=== PATIENT | male | born 1950 | race Caucasian/White ===

== ENCOUNTER → 2016-05-03 | Outpatient (CLI) | payer OTHER, MEDICARE ==
[~2016-05-03] MED LIST: ANT25 PO; ASPI1CHW12 PO; ASPI325T45 PO; ATEN50TA8 PO; ATOR-24 PO; BACL20TA PO; BUSP15TA70 PO; BUSP1TAB46 PO; CITA20TA4 PO; CITA40TA4 PO; CLON0.5T3 PO; CLOP1TAB15 PO; CYM/30 PO; DIGO0.2518 PO; FLUO20CA35 PO; FRS/40 PO; GLCSR500 PO; GLIM2TAB2 PO; GLIM4TAB PO; LNX25 PO; LORA-741 PO; LOSA100T65 PO; LOSA50TA6 PO; MECL25TA2 PO; METF500T PO; METO1TAB69 PO; POTA-65 PO; SITA50TA PO; WARF-246 PO
--- NOTE | 2016-05-03 14:46 | MYOCARDIAL PERFUSION SCAN ---
ONE-DAY NUCLEAR MEDICINE TECHNETIUM-99M CARDIOLITE MYOCARDIAL PERFUSION SCAN CLINICAL HISTORY: The patient has known coronary artery disease and suffered a prior large anterior and apical myocardial infarction. He has known left ventricular dysfunction. He has recently experienced significant exertional dyspnea. COMPARISON: None. TECHNIQUE: For the stress portion of the study, 33.0 mCi of Technetium-99m Cardiolite IV was injected at 9:21 a.m. on 05/03/2016. Fifteen minutes following the injection, imaging of the heart was performed in multiple projection. For the rest portion of the study, 1122 mCi of Technetium-99m Cardiolite was injected IV at 7:30 a.m. One hour following the injection, imaging of the heart was performed in the same projections. EXERCISE TREADMILL TESTING: The patient exercised for 3 minutes and 5 seconds on a standard Bjorn protocol attaining 4.7 METS and a peak heart rate of 153 beats per minute (98% predicted maximum). The test was terminated due to dyspnea. The patient did not experience chest discomfort. Initial blood pressure 120/75 and this increased to 140/75 at peak exertion. Baseline EKG notes atrial fibrillation with an old anteroseptal myocardial infarction pattern. There are no ST segment changes seen with exercise. There are no dysrhythmias. FINDINGS: The short axis, vertical long axis, and horizontal long axis images were reviewed in detail. There is a large fixed defect involving the mid and distal anterior wall, and the entire apex. This is consistent with a prior myocardial infarction. There is no significant ramu-infarction ischemia or other myocardial ischemic segments. The left ventricle is dilated and hypokinetic, with a large area of akinesis in the area described above. Ejection fraction is 25%. IMPRESSION: 1. Scintigraphic evidence of a large, old, anteroapical myocardial infarction. 2. No evidence of stress induced myocardial ischemia. 3. Dilated and hypokinetic left ventricle with a large area of akinesis involving the anterior and apical mendez. Ejection fraction is 25%. MTDD
== END | disposition home or self-care (01) ==
LOC: C.NUCL 06:44
PROVIDERS: ATTEND Internal Medicine Cardiovascular Disease
DX: I25.10 Atherosclerotic heart disease of native coronary artery without angina pectoris (principal); R06.09 Other forms of dyspnea

== ENCOUNTER 2016-05-31 15:46 | Observation (INO) | payer OTHER, MEDICARE ==
[~2016-05-31] VITALS: Ht 172.7 cm; Wt 109.0 kg
[~2016-05-31 15:46] MED LIST changes: -ANT25 PO; -ASPI1CHW12 PO; -ATOR-24 PO; -BACL20TA PO; -BUSP15TA70 PO; -BUSP1TAB46 PO; -CITA40TA4 PO; -CLON0.5T3 PO; -CYM/30 PO; -FLUO20CA35 PO; -FRS/40 PO; -GLCSR500 PO; -GLIM2TAB2 PO; -GLIM4TAB PO; -LNX25 PO; -LOSA50TA6 PO; -METO1TAB69 PO; -POTA-65 PO; -SITA50TA PO; -WARF-246 PO
[2016-05-31] MEDS ORDERED: NITROGLYCERIN 0.4 MG SL PER TAB CHARGE SL PRN ×2 (16:00→17:30)
[2016-05-31] MEDS ORDERED: ASPIRIN 324 MG CHEW PO STA (16:00)
--- NOTE | 2016-05-31 16:08 | EMERGENCY ROOM VISIT NOTE ---
History Report prepared by David: Belinda Best Under the Supervision of: Dr. Vernon Garnica M.D. First contact with patient: 15:55 Chief Complaint: CARDIAC ASSESSMENT Stated Complaint: HEART A-FIB History of Present Illness The patient is a 65 year old male who presents to the Emergency Room with complaints of persistent left sided chest pain that began this afternoon. It radiates under his left armpit. He describes it as a pressure. He also complains of a racing heart rate and shortness of breath which are now resolved. He took .5 Ativan without any relief. He did not take Nitro. The patient has a history of chronic a-fib and heart disease. He has had heart attacks in the past but states that his current symptoms do not feel similar to previous heart attacks. He has a history of 5 stents. He uses C-pap at night. The patient was recently put on Digoxin and took his first dose today. His leg swelling is baseline at this time. He is on Coumadin and aspirin. Denies abdominal pain or other complaints. Source of History: patient Onset: this afternoon Position: chest (left) Quality: pressure Timing: other (persistent) Associated Symptoms: + SOB Note: Other symptoms: racing heart rate Review of Systems See HPI for pertinent positives & negatives. A total of 10 systems reviewed and were otherwise negative. Past Medical & Surgical Medical Problems: (1) Benign hypertension (2) Diabetes mellitus (3) Heart disease (4) OR (myocardial infarction) (5) Neuropathy (6) Partial resection of colon (7) Placement of stent (8) Varicose vein of leg Family History Diabetes mellitus FH: cancer FH: heart disease Hypertension Social History Smoking Status: Never Smoker Alcohol Use: none Drug Use: none Marital Status: Housing Status: lives with significant other Occupation Status: employed, other Current/Historical Medications Scheduled Aspirin (Aspirin), 325 MG PO DAILY Atenolol (Tenormin), 50 MG PO BID Atorvastatin (Lipitor), 40 MG PO DAILY Citalopram Hydrobromide (Citalopram Hydrobromide), 20 MG PO DAILY Clopidogrel (Plavix), 75 MG PO DAILY Digoxin (Lanoxin), 0.25 MG PO DAILY Glimepiride (Glimepiride), 1 MG PO DAILY Losartan Potassium (Cozaar), 100 MG PO DAILY Metformin Hcl (Glucophage), 500 MG PO DAILY Warfarin Sodium (Warfarin Sodium), 5 MG PO 2XWK Warfarin Sodium (Warfarin Sodium), 2.5 MG PO 5XWK Scheduled PRN Lorazepam (Ativan), 0.5-1 MG PO TID PRN for Panic Meclizine Hcl (Antivert), 25 MG PO TID PRN for DIZZINESS Allergies Coded Allergies: Penicillins (Verified Allergy, Unknown, 12/19/10) Codeine (Verified Adverse Reaction, Unknown, NAUSEA, LIGHTHEADEDNESS, 12/19) Physical Exam Vital Signs Date Time Temp Pulse Resp B/P Pulse Ox O2 Delivery O2 Flow Rate FiO2 05/31/16 16:31 77 20 128/66 94 Room Air 05/31/16 16:14 81 05/31/16 15:59 94 Room Air 05/31/16 15:59 95 Room Air 05/31/16 15:58 88 24 160/85 95 Room Air 05/31/16 15:49 36.6 92 24 149/83 94 Room Air Physical Exam GENERAL: Patient is well appearing, mildly anxious appearing, and in minimal distress. HEENT: No acute trauma, normocephalic atraumatic, mucous membranes moist, no nasal congestion, no scleral icterus. NECK: No stridor, no adenopathy, no meningismus, trachea is midline. LUNGS: No dyspnea. Clear to auscultation and equal bilaterally. No wheeze, no rhonchi. HEART: Irregular rate and regular rhythm. No murmurs, rubs, gallops appreciated. ABDOMEN: Soft, nontender, bowel sounds positive, no masses appreciated, no peritonitis, large ventral abdominal scar which is well-healed, some abdominal redness (states chronic). BACK: No midline tenderness, no CVA tenderness EXTREMITIES: Normal motion all extremities, no cyanosis. Bilateral lower extremity edema and peripheral vascular disease (states chronic). NEUROLOGIC: Alert and oriented, no acute motor or sensory deficits, no focal weakness, cranial nerves grossly intact. SKIN: No rash, no jaundice, no diaphoresis. Medical Decision & Procedures ER Provider Diagnostic Interpretation: Radiology results and stated below per my review and radiologist interpretation: CHEST ONE VIEW PORTABLE CLINICAL HISTORY: Chest pain. Atrial fibrillation. COMPARISON STUDY: Chest radiograph July 11, 2013. FINDINGS: No pneumothorax or pleural effusion is present. No lobar consolidation is present. Marked cardiomegaly is similar to prior exam. There is no evidence of pulmonary edema. IMPRESSION: Stable marked cardiomegaly. No radiographic evidence of pulmonary edema. Electronically signed by: Jefferson Hyatt M.D. 05/31/2016 4:24 PM Dictated Date/Time: 05/31/2016 4:12 PM Laboratory Results 05/31/16 16:00 Red Blood Count 4.64, Mean Corpuscular Volume 93.1, Mean Corpuscular Hemoglobin 31.0, Mean Corpuscular Hemoglobin Concent 33.3, Mean Platelet Volume 9.4, Neutrophils (%) (Auto) 69.3, Lymphocytes (%) (Auto) 16.4, Monocytes (%) (Auto) 12.5, Eosinophils (%) (Auto) 1.4, Basophils (%) (Auto) 0.2, Neutrophils # (Auto ) 3.90, Lymphocytes # (Auto) 0.92, Monocytes # (Auto) 0.70, Eosinophils # (Auto ) 0.08, Basophils # (Auto) 0.01 05/31/16 16:00 Test 05/31/16 16:00 White Blood Count 5.62 K/uL (4.8-10.8) Red Blood Count 4.64 M/uL (4.7-6.1) Hemoglobin 14.4 g/dL (14.0-18.0) Hematocrit 43.2 % (42-52) Mean Corpuscular Volume 93.1 fL (80-100) Mean Corpuscular Hemoglobin 31.0 pg (25-34) Mean Corpuscular Hemoglobin Concent 33.3 g/dl (32-36) Platelet Count 151 K/uL (130-400) Mean Platelet Volume 9.4 fL (7.4-10.4) Neutrophils (%) (Auto) 69.3 % Lymphocytes (%) (Auto) 16.4 % Monocytes (%) (Auto) 12.5 % Eosinophils (%) (Auto) 1.4 % Basophils (%) (Auto) 0.2 % Neutrophils # (Auto) 3.90 K/uL (1.4-6.5) Lymphocytes # (Auto) 0.92 K/uL (1.2-3.4) Monocytes # (Auto) 0.70 K/uL (0.11-0.59) Eosinophils # (Auto) 0.08 K/uL (0-0.5) Basophils # (Auto) 0.01 K/uL (0-0.2) RDW Standard Deviation 48.2 fL (36.4-46.3) RDW Coefficient of Variation 14.1 % (11.5-14.5) Immature Granulocyte % (Auto) 0.2 % Immature Granulocyte # (Auto) 0.01 K/uL (0.00-0.02) Prothrombin Time 31.4 SECONDS (9.0-12.0) Prothromb Time International Ratio 2.8 (0.9-1.1) Activated Partial Thromboplast Time 32.4 SECONDS (21.0-31.0) Partial Thromboplastin Ratio 1.2 Anion Gap 9.0 mmol/L (3-11) Est Creatinine Clear Calc Drug Dose 88.2 ml/min Estimated GFR () 91.1 Estimated GFR (Non- 78.6 BUN/Creatinine Ratio 16.0 (10-20) Calcium Level 8.5 mg/dl (8.5-10.1) Magnesium Level 1.7 mg/dl (1.8-2.4) Total Creatine Kinase 87 U/L (39-308) Creatine Kinase MB 1.0 ng/ml (0.5-3.6) Creatine Kinase MB Ratio 1.1 (0-3.0) Troponin I 0.018 ng/ml (0-0.045) Pro-B-Type Natriuretic Peptide 1692 pg/ml (0-900) Laboratory results as reviewed by me. Medications Administered Medications (Trade) Dose Ordered Sig/Jazmyne Route Start Time Stop Time Status Last Admin Dose Admin Nitroglycerin (Nitrostat Tab) 0.4 mg Q5M PRN SL 05/31/16 16:00 06/30/16 15:59 05/31/16 16:14 0.4 MG Aspirin (Aspirin Chew) 324 mg NOW STAT PO 05/31/16 16:00 05/31/16 16:01 DC 05/31/16 16:14 324 MG ECG Indication: chest pain Rate (beats per minute): 88 Rhythm: normal sinus Findings: PVC, no acute ischemic change Comparison ECG Date: 07/12/13 Change: no significant change ED Course 1555: The patient was evaluated in room B12. A complete history and physical exam was performed. 1600: Ordered Aspirin 324 mg PO, Nitroglycerin 0.4 mg SL. 1635: I reassessed the patient. He has no further chest pain after receiving Nitro. Discussed results and treatment plan with the patient. He verbalized understanding and agreement with the treatment plan. The patient will be evaluated for further management. 1645: I discussed the case with DOM [facility]. The patient will be evaluated for further management. Medical Decision Differential: Cardiac Ischemia (STEMI, NSTEMI, Unstable Angina, etc), Aortic Dissection, Arrhythmia, Pulmonary Embolism, Pneumonia, Pneumothorax, MSK, Infectious, Pericarditis/Myocarditis, Esophageal Rupture, Gastrointestinal, amongst other pathologies entertained. 65 yr old male with long cardiac history and multiple stents who arrives with left chest pressure radiating to left arm. No STEMI on EKG. Resolved with SLNTG. INR therapeutic. Took ASA earlier. CXR without acute findings. No further pain nor symptoms. Vitals normal post SLNTG. Initial trop wnl. Given high risk patient will need full cardiac rule out. Stable at time of consult with hospitalist. Consults Time Called: 1636 Consulting Physician: [facility] Returned Call: 1645 I discussed the case with her. The patient will be evaluated for further management. Impression Primary Impression: Left sided chest pain Scribe Attestation The scribe's documentation has been prepared under my direction and personally reviewed by me in its entirety. I confirm that the note above accurately reflects all work, treatment, procedures, and medical decision making performed by me. Departure Information Dispostion Being Evaluated By Hospitalist Referrals Delmer Gracia M.D. (PCP) Patient Instructions My [facility]
[2016-05-31 16:10] LABS: BASO % 0.2 %; BASO ABS # 0.01 K/uL (0-0.2); COMPLETE YES; EOS % 1.4 %; HEMATOCRIT 43.2 % (42-52); IG% 0.2 %; LYMPH % 16.4 %; LYMPH ABS # 0.92 K/uL (1.2-3.4); MEAN CELL VOLUME 93.1 fL (80-100); MEAN CORPUSCULAR HGB CONC 33.3 g/dl (32-36); MEAN PLATELET VOLUME 9.4 fL (7.4-10.4); MONO % 12.5 %; NEUT % 69.3 %; PLATELET COUNT 151 K/uL (130-400); RED BLOOD COUNT 4.64 M/uL (4.7-6.1); WHITE BLOOD COUNT 5.62 K/uL (4.8-10.8)
[2016-05-31 16:20] LABS: INR 2.8 (0.9-1.1); PARTIAL THROMBOPLASTIN RATIO 1.2; PROTHROMBIN TIME (PATIENT) 31.4 SECONDS (9.0-12.0)
--- NOTE | 2016-05-31 16:25 | DIAGNOSTIC IMAGING REPORT ---
CHEST ONE VIEW PORTABLE CLINICAL HISTORY: Chest pain. Atrial fibrillation. COMPARISON STUDY: Chest radiograph July 11, 2013. FINDINGS: No pneumothorax or pleural effusion is present. No lobar consolidation is present. Marked cardiomegaly is similar to prior exam. There is no evidence of pulmonary edema. IMPRESSION: Stable marked cardiomegaly. No radiographic evidence of pulmonary edema. Electronically signed by: Jefferson Hyatt M.D. 05/31/2016 4:24 PM Dictated Date/Time: 05/31/2016 4:12 PM
[2016-05-31 16:27] LABS: CALCIUM 8.5 mg/dl (8.5-10.1); MAGNESIUM 1.7 mg/dl (1.8-2.4); POTASSIUM 3.5 mmol/L (3.5-5.1)
[2016-05-31 16:32] LABS: CKMB/CK RATIO 1.1 (0-3.0)
[2016-05-31] MEDS ORDERED: ANT25 PO (16:59)
[2016-05-31] MEDS ORDERED: ONDANSETRON INJ 2 MG/ML 2 ML VIAL IV PRN (17:30)
[2016-05-31] MEDS ORDERED: ACETAMINOPHEN 325 MG TAB PO PRN (17:30)
[2016-05-31] MEDS ORDERED: SITA50TA PO (17:32)
[2016-05-31] MEDS ORDERED: GLUCOSE 10 TABS/TUBE PO PRN (17:45)
[2016-05-31] MEDS ORDERED: DEXTROSE 50% 50 ML SYR IV PRN (17:45)
[2016-05-31] MEDS ORDERED: GLUCOSE 40% GEL 15 GM TUBE PO PRN (17:45)
[2016-05-31] MEDS ORDERED: GLUCAGON FOR INJ 1 MG VIAL SQ PRN (17:45)
--- NOTE | 2016-05-31 18:22 | History and Physical ---
History & Physical Date & Time of Service: May 31, 2016 at 17:48 Chief Complaint: Heart A-Fib Primary Care Physician: Delmer Gracia M.D. History of Present Illness Source: patient This is a 65 y/o male with PMHx of Chronic afib on coumadin, Systolic CHF on lasix, well-controlled DM 2, CAD s/p stents x 4, HTN, Dyslipidemia and other problems as outlined below who presents to the ED c/o L sided chest pain that began this afternoon. Pt reports that this afternoon around 1500 he was sitting on the couch when he developed acute onset chest pain that he describes as 3/10 "fluttering" discomfort in his L armpit. The discomfort radiated to his upper back but not into his arms or jaw. Sxs were assoc with palpitations/racing heart rate and SOB. Pt took a 0.5mg Ativan at home but did not take a nitro. Pt has a history of chronic afib and states that these sxs were reflective of his afib when his heart rate is too fast. He has a history of CAD with 4 stents placed in 1997. These sxs are not the same as the sxs he had with his DC. Pt mentions he has had more SOB over the past month and has been seen by his radar scientist (Dr. Vargas). Last month he had a stress test which was negative however he was told there is a "small amount of fluid around the heart". His radar scientist started digoxin and patient took his first dose this morning. Pt denies fever/chills, diaphoresis, wheezing, abd pain, N/V, bowel or bladder issues, LE edema ,calf pain, lightheadedness/dizziness. In the ED, vitals are stable. Trop negative and EKG rate controlled afib with no acute ischemic changes. CXR is negative. Pt received a nitro upon arrival to the ED which relieved his pain. He is currently symptom free and feeling back to his baseline. He will be admitted for further evaluation and treatment. Past Medical/Surgical History Medical Problems: (1) Atrial fibrillation, chronic Status: Chronic (2) CAD (coronary artery disease) Status: Chronic (3) Diabetes mellitus type II, controlled Status: Chronic (4) Dyslipidemia Status: Chronic (5) HTN (hypertension) Status: Chronic (6) ANTOINETTE on CPAP Status: Chronic (7) Systolic CHF Status: Chronic Surgical Problems: (1) History of partial colectomy Permanent Comment: [facility]/ ilieorectal anast/ multiple polyps 2008 Status: Resolved (2) Stented coronary artery Permanent Comment: stents x 4 to RCA and LAD 1997 Status: Resolved Family History Diabetes mellitus FH: cancer FH: heart disease Hypertension Social History Smoking Status: Never Smoker Alcohol Use: none Drug Use: none Marital Status: Housing status: lives with family Occupational Status: employed, other Immunizations History of Influenza Vaccine: N/A History of Tetanus Vaccine?: Yes Tetanus Immunization Date: Mar 31, 2012 History of Pneumococcal: Yes History of Hepatitis B Vaccine: No Multi-Drug Resistant Organisms History of MDRO: No Allergies Coded Allergies: Penicillins (Verified Allergy, Unknown, 05/31/16) Codeine (Verified Adverse Reaction, Unknown, NAUSEA, LIGHTHEADEDNESS, 05/31) Home Medications Scheduled Aspirin (Aspirin 81 Low Dose), 81 MG PO QAM Atorvastatin (Lipitor), 40 MG PO QPM Citalopram Hydrobromide (Citalopram Hydrobromide), 20 MG PO QAM Digoxin (Digoxin), 0.25 MG PO QAM Furosemide (Lasix), 40 MG PO BID Glimepiride (Glimepiride), 2 MG PO QAM Glimepiride (Amaryl), 4 MG PO QAM Losartan Potassium (Cozaar), 100 MG PO QAM Metformin HCl (Metformin HCl ER), 500 MG PO BID Metoprolol Succ (Toprol Xl) (Toprol-Xl ), 100 MG PO QAM Potassium Chloride (Potassium Chloride ER), 10 MEQ PO QAM Sitagliptin Phosphate (Januvia), 50 MG PO DAILY Warfarin Sodium (Warfarin Sodium), 5 MG PO MWF Warfarin Sodium (Warfarin Sodium), 2.5 MG PO 4XWK Scheduled PRN Lorazepam (Ativan), 0.5-1 MG PO TID PRN for Panic Review of Systems Constitutional: No chills, No fatigue, No fever, No sweats, No weakness Eyes: No worsening of vision ENT: No hearing loss Respiratory: + shortness of breath, No cough Cardiovascular: + chest pain (L sided), No claudication, No edema Abdomen: No constipation, No diarrhea, No nausea, No pain, No vomiting Musculoskeletal: No calf pain, No joint pain, No swelling Genitourinary - Male: No dysuria Neurologic: No weakness Psychiatric: No depression symptoms Endocrine: No fatigue Hematologic / Lymphatic: No abnormal bleeding/bruising Integumentary: No new/changing skin lesions Physical Exam Vital Signs Date Time Temp Pulse Resp B/P Pulse Ox O2 Delivery O2 Flow Rate FiO2 05/31/16 16:31 77 20 128/66 94 Room Air 05/31/16 16:14 81 05/31/16 15:59 94 Room Air 05/31/16 15:59 95 Room Air 05/31/16 15:58 88 24 160/85 95 Room Air 05/31/16 15:49 36.6 92 24 149/83 94 Room Air General Appearance: WD/WN, no apparent distress, + pertinent finding (Pt is sitting up in bed with at bedside ) Head: normocephalic, atraumatic Eyes: normal inspection ENT: hearing grossly normal Neck: supple Respiratory/Chest: chest non-tender, lungs clear, normal breath sounds, no respiratory distress Cardiovascular: regular rate, rhythm, no edema Abdomen/GI: normal bowel sounds, non tender, soft, + pertinent finding (20 cm vertical well-healed surgical scar noted) Back: normal inspection Extremities/Musculoskelatal: + swelling (2+ pitting edema bilat), + pertinent finding (venous stasis skin changes) Neurologic/Psych: alert, normal mood/affect, oriented x 3 Skin: normal color, warm/dry Diagnostics Laboratory Results Results Past 24 Hours Test 05/31/16 16:00 Range/Units White Blood Count 5.62 4.8-10.8 K/uL Red Blood Count 4.64 4.7-6.1 M/uL Hemoglobin 14.4 14.0-18.0 g/dL Hematocrit 43.2 42-52 % Mean Corpuscular Volume 93.1 80-100 fL Mean Corpuscular Hemoglobin 31.0 25-34 pg Mean Corpuscular Hemoglobin Concent 33.3 32-36 g/dl Platelet Count 151 130-400 K/uL Mean Platelet Volume 9.4 7.4-10.4 fL Neutrophils (%) (Auto) 69.3 % Lymphocytes (%) (Auto) 16.4 % Monocytes (%) (Auto) 12.5 % Eosinophils (%) (Auto) 1.4 % Basophils (%) (Auto) 0.2 % Neutrophils # (Auto) 3.90 1.4-6.5 K/uL Lymphocytes # (Auto) 0.92 1.2-3.4 K/uL Monocytes # (Auto) 0.70 0.11-0.59 K/uL Eosinophils # (Auto) 0.08 0-0.5 K/uL Basophils # (Auto) 0.01 0-0.2 K/uL RDW Standard Deviation 48.2 36.4-46.3 fL RDW Coefficient of Variation 14.1 11.5-14.5 % Immature Granulocyte % (Auto) 0.2 % Immature Granulocyte # (Auto) 0.01 0.00-0.02 K/uL Prothrombin Time 31.4 9.0-12.0 SECONDS Prothromb Time International Ratio 2.8 0.9-1.1 Activated Partial Thromboplast Time 32.4 21.0-31.0 SECONDS Partial Thromboplastin Ratio 1.2 Sodium Level 140 136-145 mmol/L Potassium Level 3.5 3.5-5.1 mmol/L Chloride Level 101 98-107 mmol/L Carbon Dioxide Level 30 21-32 mmol/L Anion Gap 9.0 3-11 mmol/L Blood Urea Nitrogen 16 7-18 mg/dl Creatinine 1.00 0.60-1.40 mg/dl Est Creatinine Clear Calc Drug Dose 88.2 ml/min Estimated GFR () 91.1 Estimated GFR (Non- 78.6 BUN/Creatinine Ratio 16.0 10-20 Random Glucose 139 70-99 mg/dl Calcium Level 8.5 8.5-10.1 mg/dl Magnesium Level 1.7 1.8-2.4 mg/dl Total Creatine Kinase 87 39-308 U/L Creatine Kinase MB 1.0 0.5-3.6 ng/ml Creatine Kinase MB Ratio 1.1 0-3.0 Troponin I 0.018 0-0.045 ng/ml Pro-B-Type Natriuretic Peptide 1692 0-900 pg/ml Digoxin Level 0.3 0.8-2.0 ng/ml Diagnostic Radiology CXR IMPRESSION: Stable marked cardiomegaly. No radiographic evidence of pulmonary edema. EKG EKG: Afib at 88 bpm with PVCs and no acute ischemic change; no change when compared to EKG from 4/25/14 Impression Assessment and Plan ATYPICAL CHEST PAIN R/O ACS pt presented with L chest pain assoc with palpitations and SOB -observation status to telemetry -likely secondary to suspected episode of Afib with RVR this afternoon but with cardiac history will r/o ACS -RFs include CAD, DM 2, HTN, Dyslipidemia -EKG no acute ischemic changes;repeat EKG PRN chest pain and in AM -Initial troponin is negative; continue to monitor with serial cardiac enzymes q6h -stress echo 04/2016 negative for inducible ischemia; terminated due to dyspnea -cont ASA, BB and statin -consult [facility] cardiology, Dr. Riggs-pending input -pt is currently chest pain free -continue to monitor PALPITATIONS SECONDARY TO AFIB -h/o chronic afib on Coumadin; likely symptomatic due to suspected episode of RVR this afternoon -EKG on arrival + rate controlled Afib -cont Coumadin, BB and digoxin -INR therapeutic; cont to monitor WELL-CONTROLLED DM 2 -last A1C 6.7; repeat in AM -hold metformin, Januvia and Glimepiride -start ISS -monitor BSG AC HS SYSTOLIC CHF -CXR stable cardiomegaly but no effusions; LE swelling at baseline per pt -EF 25% on echo from 04/2016 -cont Lasix, BB, ARB and digoxin -low salt diet -monitor ANTOINETTE on CPAP HS -pt may use CPAP from home HTN -BP stable -cont losartan and metoprolol -monitor DYSLIPIDEMIA -cont statin DVT PROPHYLAXIS -Coumadin; INR therapeutic CODE STATUS -DNR per discussion with patient upon admission DISPO Observation status until further workup is complete. Pt seen in collaboration with Dr. Price. Please see her addendum for further details. Thanks! -Of note: patient will be followed by Dr. Horvath starting tomorrow AM. I have seen, examined and discussed this patient with Krystal Schultz and I agree with the above note. Patient presented with upper mid back pain and palpitations. Symptoms not similar to previous DC chest pain. Vitals stable. PE: General- awake; alert; NAD Eyes- EOMI; no scleral icterus Neck- no stridor; trachea midline Lungs- CTA bilaterally; no wheezes/crackles Heart- irregularly irregular Abdomen- soft; NTND; nBS Back- no gross abnormalities; no tenderness to palpation along spine or paraspinal muscles Extremities- 1-2+ pitting edema bilateral LE (stable per patient); no deformity Neuro- no focal deficits Skin- no appreciable rash or bruise Labs reviewed. EKG negative for acute ischemia. CXR negative. Nuclear stress test negative for ischemia 04/2016 Chest pain: Patient gave different account to different providers regarding chest pain. ACS r/o. Consult Cardiology given significant cardiac history. Recent negative nuclear stress test. Defer any additional workup to Cardiology. Continue home medications with the exception of holding oral DM medications and covering with SSI while inpatient. VTE Prophylaxis VTE Risk Assessment Done? Y/N: Yes Risk Level: High Given or contraindicated: Warfarin (Coumadin)
[2016-05-31 18:43] VITALS: BP 150/89; PULSE 92; TEMP 36.7; O2SAT 90
[2016-05-31 18:53] VITALS: O2SAT 90; Ht 172.7 cm; Wt 109.0 kg
[2016-05-31 20:00] VITALS: O2SAT 90
[2016-05-31] MEDS: INSULIN ASPART 100 UNITS/ML 3 ML PEN SC SCH (20:44)
[2016-05-31] MEDS ORDERED: ATORVASTATIN 40 MG TAB PO SCH (21:00)
[2016-05-31] MEDS ORDERED: FUROSEMIDE 40 MG TAB PO SCH (21:00)
[2016-05-31] MEDS: LORAZEPAM 0.5 MG TAB PO PRN ×2 (22:32→22:35)
[2016-05-31 23:40] VITALS: BP 149/85; PULSE 80; TEMP 36.5; O2SAT 97
[2016-06-01 03:52] VITALS: BP 151/90; PULSE 76; TEMP 36.5; O2SAT 90
[2016-06-01 03:57] LABS: HEMATOCRIT 40.5 % (42-52); MEAN CELL VOLUME 92.7 fL (80-100); MEAN CORPUSCULAR HEMOGLOBIN 30.9 pg (25-34); MEAN CORPUSCULAR HGB CONC 33.3 g/dl (32-36); MEAN PLATELET VOLUME 9.2 fL (7.4-10.4); PLATELET COUNT 123 K/uL (130-400); RED BLOOD COUNT 4.37 M/uL (4.7-6.1); WHITE BLOOD COUNT 6.12 K/uL (4.8-10.8)
[2016-06-01 04:10] LABS: INR 2.6 (0.9-1.1); PROTHROMBIN TIME (PATIENT) 28.9 SECONDS (9.0-12.0)
[2016-06-01 04:14] LABS: BLOOD UREA NITROGEN 15 mg/dl (7-18); BUN/CREATININE RATIO 17.3 (10-20); CALCIUM 8.6 mg/dl (8.5-10.1); CARBON DIOXIDE 33 mmol/L (21-32); CHLORIDE 102 mmol/L (98-107); CREATININE 0.85 mg/dl (0.60-1.40); GLUCOSE 117 mg/dl (70-99); POTASSIUM 3.9 mmol/L (3.5-5.1); SODIUM 140 mmol/L (136-145)
[2016-06-01 06:57] LABS: ESTIMATED AVERAGE GLUCOSE 148 mg/dl; HA1C FLAG Normal (Normal)
[2016-06-01 07:47] VITALS: BP 168/86; PULSE 86; TEMP 36.3; O2SAT 90
[2016-06-01] MEDS: INSULIN ASPART 100 UNITS/ML 3 ML PEN SC SCH (08:12)
--- NOTE | 2016-06-01 08:43 | Progress Note ---
Internal Med Progress Note Date of Service: Jun 01, 2016. Provider Documentation: SUBJECTIVE: Patient is seen and examined at bedside. Currently feels well. Denies any chest pain, SOB, palpitations, dizziness. OBJECTIVE: Vital Signs-as noted below Physical Exam: Vitals signs as noted above General Appearance:Moderately built and nourished, no apparent distress Head: normocephalic, Atraumatic Eyes: normal inspection, EOMI, PERRLA Neck: supple, Trachea midline Respiratory/Chest: Normal breath sounds, CTA Cardiovascular: Irregularly Irregular, No murmur Abdomen/GI:Soft, Non tender, Bowel sounds present Extremities/Musculoskelatal:normal inspection, 1-2 + b/l edema Neurologic/Psych:AAOX3, grossly no focal neurological deficits Skin: normal color, warm Lab data as noted below. ASSESSMENT & PLAN: ATYPICAL CHEST PAIN/PALPITATIONS R/O ACS Patient presented with left sided chest pain, palpitations associated with episodic SOB which improved with NTG while in ED Continue monitoring in telemetry Risk Factors:CAD S/P stents , DM II, HTN, Dyslipidemia EKG: No signs of Ischemia, Troponin X3: Negative Last stress echo 04/2016: negative for inducible ischemia; terminated due to dyspnea continue ASA, BB, statin Discussed with cardiology . No plan for further testing/Intervention or medication changes. Plan to follow up as outpatient in 1-2 weeks H/O CAD S/P stents Continue current meds CHRONIC AFIB Rate controlled On Coumadin, INR therapeutic Monitor INR Continue BB, Digoxin DM II A1C 6.8 hold oral meds from home Continue ISS, Accu checks CHRONIC SYSTOLIC CHF CXR stable cardiomegaly, no evidence of pulmonary edema. LE edema at baseline per pt Last ECHO in Apr 2016: EF 25% continue Lasix, BB, ARB and digoxin ANTOINETTE Continue CPAP at bedtime HTN continue losartan, metoprolol, Lasix continue to monitor DYSLIPIDEMIA continue statin DVT PROPHYLAXIS On Coumadin; INR therapeutic CODE STATUS: DNR DISPOSITION: Plan to discharge home today Follow up with on 06/06/16 at 11:10AM Follow up with your Resin Painter in 1-2 weeks PROCEDURES: CXR: Stable marked cardiomegaly. No radiographic evidence of pulmonary edema. Vital Signs: Date Time Temp Pulse Resp B/P Pulse Ox O2 Delivery O2 Flow Rate FiO2 06/01/16 07:47 36.3 86 16 168/86 90 Room Air 06/01/16 04:00 Room Air 06/01/16 03:52 36.5 76 18 151/90 90 Room Air 05/31/16 23:59 Room Air 05/31/16 23:40 36.5 80 19 149/85 97 Room Air 05/31/16 20:00 90 Room Air 05/31/16 18:53 90 Room Air 05/31/16 18:43 36.7 92 16 150/89 90 Room Air 05/31/16 17:56 83 20 140/89 94 Room Air 05/31/16 16:31 77 20 128/66 94 Room Air 05/31/16 16:14 81 05/31/16 15:59 94 Room Air 05/31/16 15:59 95 Room Air 05/31/16 15:58 88 24 160/85 95 Room Air 05/31/16 15:49 36.6 92 24 149/83 94 Room Air Lab Results: Results Past 24 Hours Test 05/31/16 16:00 05/31/16 20:28 05/31/16 21:58 05/31/16 22:00 Range/Units White Blood Count 5.62 4.8-10.8 K/uL Red Blood Count 4.64 4.7-6.1 M/uL Hemoglobin 14.4 14.0-18.0 g/dL Hematocrit 43.2 42-52 % Mean Corpuscular Volume 93.1 80-100 fL Mean Corpuscular Hemoglobin 31.0 25-34 pg Mean Corpuscular Hemoglobin Concent 33.3 32-36 g/dl Platelet Count 151 130-400 K/uL Mean Platelet Volume 9.4 7.4-10.4 fL Neutrophils (%) (Auto) 69.3 % Lymphocytes (%) (Auto) 16.4 % Monocytes (%) (Auto) 12.5 % Eosinophils (%) (Auto) 1.4 % Basophils (%) (Auto) 0.2 % Neutrophils # (Auto) 3.90 1.4-6.5 K/uL Lymphocytes # (Auto) 0.92 1.2-3.4 K/uL Monocytes # (Auto) 0.70 0.11-0.59 K/uL Eosinophils # (Auto) 0.08 0-0.5 K/uL Basophils # (Auto) 0.01 0-0.2 K/uL RDW Standard Deviation 48.2 36.4-46.3 fL RDW Coefficient of Variation 14.1 11.5-14.5 % Immature Granulocyte % (Auto) 0.2 % Immature Granulocyte # (Auto) 0.01 0.00-0.02 K/uL Prothrombin Time 31.4 9.0-12.0 SECONDS Prothromb Time International Ratio 2.8 0.9-1.1 Activated Partial Thromboplast Time 32.4 21.0-31.0 SECONDS Partial Thromboplastin Ratio 1.2 Sodium Level 140 136-145 mmol/L Potassium Level 3.5 3.5-5.1 mmol/L Chloride Level 101 98-107 mmol/L Carbon Dioxide Level 30 21-32 mmol/L Anion Gap 9.0 3-11 mmol/L Blood Urea Nitrogen 16 7-18 mg/dl Creatinine 1.00 0.60-1.40 mg/dl Est Creatinine Clear Calc Drug Dose 88.2 ml/min Estimated GFR () 91.1 Estimated GFR (Non- 78.6 BUN/Creatinine Ratio 16.0 10-20 Random Glucose 139 70-99 mg/dl Calcium Level 8.5 8.5-10.1 mg/dl Magnesium Level 1.7 1.8-2.4 mg/dl Total Creatine Kinase 87 39-308 U/L Creatine Kinase MB 1.0 0.6 0.5-3.6 ng/ml Creatine Kinase MB Ratio 1.1 0-3.0 Troponin I 0.018 0.020 0-0.045 ng/ml Pro-B-Type Natriuretic Peptide 1692 0-900 pg/ml Digoxin Level 0.3 0.8-2.0 ng/ml Bedside Glucose 137 70-99 mg/dl Test 06/01/16 03:50 06/01/16 06:34 Range/Units White Blood Count 6.12 4.8-10.8 K/uL Red Blood Count 4.37 4.7-6.1 M/uL Hemoglobin 13.5 14.0-18.0 g/dL Hematocrit 40.5 42-52 % Mean Corpuscular Volume 92.7 80-100 fL Mean Corpuscular Hemoglobin 30.9 25-34 pg Mean Corpuscular Hemoglobin Concent 33.3 32-36 g/dl RDW Standard Deviation 47.9 36.4-46.3 fL RDW Coefficient of Variation 14.1 11.5-14.5 % Platelet Count 123 130-400 K/uL Mean Platelet Volume 9.2 7.4-10.4 fL Prothrombin Time 28.9 9.0-12.0 SECONDS Prothromb Time International Ratio 2.6 0.9-1.1 Sodium Level 140 136-145 mmol/L Potassium Level 3.9 3.5-5.1 mmol/L Chloride Level 102 98-107 mmol/L Carbon Dioxide Level 33 21-32 mmol/L Anion Gap 5.0 3-11 mmol/L Blood Urea Nitrogen 15 7-18 mg/dl Creatinine 0.85 0.60-1.40 mg/dl Est Creatinine Clear Calc Drug Dose 103.8 ml/min Estimated GFR () 106.0 Estimated GFR (Non- 91.4 BUN/Creatinine Ratio 17.3 10-20 Random Glucose 117 70-99 mg/dl Estimated Average Glucose 148 mg/dl Hemoglobin A1c 6.8 4.5-5.6 % Calcium Level 8.6 8.5-10.1 mg/dl Creatine Kinase MB 1.0 0.5-3.6 ng/ml Creatine Kinase MB Ratio 0-3.0 Troponin I 0.018 0-0.045 ng/ml Bedside Glucose 115 70-99 mg/dl
[2016-06-01] MEDS ORDERED: CITALOPRAM 20 MG TAB PO SCH (09:00)
[2016-06-01] MEDS ORDERED: FUROSEMIDE 40 MG TAB PO SCH (09:00)
[2016-06-01] MEDS ORDERED: POTASSIUM CHLORIDE 10 MEQ TABCR PO SCH (09:00)
[2016-06-01] MEDS ORDERED: ASPIRIN 81 MG ECTAB PO SCH (09:00)
[2016-06-01] MEDS ORDERED: METOPROLOL SUCC 50MG EXT REL TAB PO SCH (09:00)
[2016-06-01] MEDS ORDERED: CLOPIDOGREL BISULFATE 75 MG TAB PO SCH (09:00)
[2016-06-01] MEDS ORDERED: LOSARTAN POTASSIUM 50 MG TAB PO SCH (09:00)
--- NOTE | 2016-06-01 10:04 | Discharge Instructions ---
Discharge Instructions Date of Service Jun 01, 2016. Admission Reason for Admission: Left Sided Chest Pain Discharge Discharge Diagnosis / Problem: Atypical Chest pain Discharge Goals Goal(s): Decrease discomfort, Improve function Activity Recommendations Activity Limitations: resume your previous activity Exercise/Sports Limitations: as tolerated . Instructions / Follow-Up Instructions / Follow-Up Follow up with on 06/06/16 at 11:10AM Follow up with your Sleep Medicine Physician in 1-2 weeks Current Hospital Diet Patient's current hospital diet: AHA Diet (Heart Healthy), Low Sodium Diet (2gm Na), Diabetes Type 2 Diet Discharge Diet Recommended Diet: AHA Diet (Heart Healthy), Low Sodium Diet (2gm Na), Diabetes Type 2 Diet Procedures Procedures Performed: None Pending Studies Studies pending at discharge: no Laboratory Results Hemoglobin A1c Test 06/01/16 03:50 Range/Units Estimated Average Glucose 148 mg/dl Hemoglobin A1c 6.8 H 4.5-5.6 % Medical Emergencies . Who to Call and When: Medical Emergencies: If at any time you feel your situation is an emergency, please call 911 immediately. . Non-Emergent Contact Non-Emergency issues call your: Primary Care Provider, Sleep Medicine Physician Call Non-Emergent contact if: you have a fever, your pain is not controlled, your pain is worsening, your pain is unusual for you, you have any medication questions . . "Provider Documentation" section prepared by Arjun Horvath. VTE Core Measure Inpt VTE Proph given/why not?: Warfarin (Coumadin)
--- NOTE | 2016-06-01 10:17 | Discharge Summary ---
Discharge Summary Date of Service Jun 01, 2016. Discharge Summary Admission Date: May 31, 2016 at 17:29 Discharge Date: Jun 01, 2016 Discharge Disposition: Home Principal Diagnosis: Atypical Chest pain Procedures: CXR: Stable marked cardiomegaly. No radiographic evidence of pulmonary edema. Consultations: Cardiology Pending Studies/Follow-Up: Follow up with on 06/06/16 at 11:10AM Follow up with your Watch Train Assembler in 1-2 weeks Medication Reconciliation Continued Medications: Aspirin (Aspirin 81 Low Dose) 81 Mg Chw 81 MG PO QAM Atorvastatin (Lipitor) 40 Mg Tab 40 MG PO QPM, TAB Citalopram Hydrobromide (Citalopram Hydrobromide) 20 Mg Tab 20 MG PO QAM Digoxin (Digoxin) 0.25 Mg Tab 0.25 MG PO QAM Furosemide (Lasix) 40 Mg Tab 40 MG PO BID, TAB Glimepiride (Glimepiride) 2 Mg Tab 2 MG PO QAM TAKE WITH 4MG TOTAL DOSE 6MG QAM Glimepiride (Amaryl) 4 Mg Tab 4 MG PO QAM, TAB TAKE WITH 2 MG TOTAL DOSE 6 MG QAM Lorazepam (Ativan) 0.5 Mg Tab 0.5-1 MG PO TID PRN for Panic, TAB Losartan Potassium (Cozaar) 100 Mg Tab 100 MG PO QAM, TAB Metformin HCl (Metformin HCl ER) 500 Mg Tabcr 500 MG PO BID Metoprolol Succ (Toprol Xl) (Toprol-Xl ) 100 Mg Tabcr 100 MG PO QAM, TAB Potassium Chloride (Potassium Chloride ER) 20 Meq Tab 10 MEQ PO QAM Sitagliptin Phosphate (Januvia) 50 Mg Tab 50 MG PO DAILY, TAB Warfarin Sodium (Warfarin Sodium) 5 Mg Tab 5 MG PO MWF Warfarin Sodium (Warfarin Sodium) 5 Mg Tab 2.5 MG PO 4XWK MONDAY, MONDAY, MONDAY, AND MONDAY Admission Information HPI (per Admitting provider): This is a 65 y/o male with PMHx of Chronic afib on coumadin, Systolic CHF on lasix, well-controlled DM 2, CAD s/p stents x 4, HTN, Dyslipidemia and other problems as outlined below who presents to the ED c/o L sided chest pain that began this afternoon. Pt reports that this afternoon around 1500 he was sitting on the couch when he developed acute onset chest pain that he describes as 3/10 "fluttering" discomfort in his L armpit. The discomfort radiated to his upper back but not into his arms or jaw. Sxs were assoc with palpitations/racing heart rate and SOB. Pt took a 0.5mg Ativan at home but did not take a nitro. Pt has a history of chronic afib and states that these sxs were reflective of his afib when his heart rate is too fast. He has a history of CAD with 4 stents placed in 1997. These sxs are not the same as the sxs he had with his ND. Pt mentions he has had more SOB over the past month and has been seen by his [employer] technician (Dr. Vargas). Last month he had a stress test which was negative however he was told there is a "small amount of fluid around the heart". His [employer] technician started digoxin and patient took his first dose this morning. Pt denies fever/chills, diaphoresis, wheezing, abd pain, N/V, bowel or bladder issues, LE edema ,calf pain, lightheadedness/dizziness. In the ED, vitals are stable. Trop negative and EKG rate controlled afib with no acute ischemic changes. CXR is negative. Pt received a nitro upon arrival to the ED which relieved his pain. He is currently symptom free and feeling back to his baseline. He will be admitted for further evaluation and treatment. Physical Exam (per Admitting): General Appearance: WD/WN, no apparent distress, + pertinent finding (Pt is sitting up in bed with at bedside ) Head: normocephalic, atraumatic Eyes: normal inspection ENT: hearing grossly normal Neck: supple Respiratory/Chest: chest non-tender, lungs clear, normal breath sounds, no respiratory distress Cardiovascular: regular rate, rhythm, no edema Abdomen/GI: normal bowel sounds, non tender, soft, + pertinent finding (20 cm vertical well-healed surgical scar noted) Back: normal inspection Extremities/Musculoskelatal: + swelling (2+ pitting edema bilat), + pertinent finding (venous stasis skin changes) Neurologic/Psych: alert, normal mood/affect, oriented x 3 Skin: normal color, warm/dry Hospital Course ATYPICAL CHEST PAIN/PALPITATIONS R/O ACS Patient presented with left sided chest pain, palpitations associated with episodic SOB which improved with NTG while in ED Continue monitoring in telemetry Risk Factors:CAD S/P stents , DM II, HTN, Dyslipidemia EKG: No signs of Ischemia, Troponin X3: Negative Last stress echo 04/2016: negative for inducible ischemia; terminated due to dyspnea continue ASA, BB, statin Discussed with cardiology . No plan for further testing/Intervention or medication changes. Plan to follow up as outpatient in 1-2 weeks H/O CAD S/P stents Continue current meds CHRONIC AFIB Rate controlled On Coumadin, INR therapeutic Monitor INR Continue BB, Digoxin DM II A1C 6.8 hold oral meds from home Continue ISS, Accu checks CHRONIC SYSTOLIC CHF CXR stable cardiomegaly, no evidence of pulmonary edema. LE edema at baseline per pt Last ECHO in Apr 2016: EF 25% continue Lasix, BB, ARB and digoxin ANTOINETTE Continue CPAP at bedtime HTN continue losartan, metoprolol, Lasix continue to monitor DYSLIPIDEMIA continue statin DVT PROPHYLAXIS On Coumadin; INR therapeutic CODE STATUS: DNR DISPOSITION: Plan to discharge home today Follow up with on 06/06/16 at 11:10AM Follow up with your Watch Train Assembler in 1-2 weeks PROCEDURES: CXR: Stable marked cardiomegaly. No radiographic evidence of pulmonary edema. Total time spent on discharge = This includes examination of the patient, discharge planning, medication reconciliation, and communication with other providers. Discharge Instructions Discharge Instructions Date of Service Jun 01, 2016. Admission Reason for Admission: Left Sided Chest Pain Discharge Discharge Diagnosis / Problem: Atypical Chest pain Discharge Goals Goal(s): Decrease discomfort, Improve function Activity Recommendations Activity Limitations: resume your previous activity Exercise/Sports Limitations: as tolerated . Instructions / Follow-Up Instructions / Follow-Up Follow up with on 06/06/16 at 11:10AM Follow up with your Watch Train Assembler in 1-2 weeks Current Hospital Diet Patient's current hospital diet: AHA Diet (Heart Healthy), Low Sodium Diet (2gm Na), Diabetes Type 2 Diet Discharge Diet Recommended Diet: AHA Diet (Heart Healthy), Low Sodium Diet (2gm Na), Diabetes Type 2 Diet Procedures Procedures Performed: None Pending Studies Studies pending at discharge: no Laboratory Results Hemoglobin A1c Test 3/15/17 03:50 Range/Units Estimated Average Glucose 148 mg/dl Hemoglobin A1c 6.8 H 4.5-5.6 % Medical Emergencies . Who to Call and When: Medical Emergencies: If at any time you feel your situation is an emergency, please call 911 immediately. . Non-Emergent Contact Non-Emergency issues call your: Primary Care Provider, Watch Train Assembler Call Non-Emergent contact if: you have a fever, your pain is not controlled, your pain is worsening, your pain is unusual for you, you have any medication questions . . "Provider Documentation" section prepared by Arjun Horvath. VTE Core Measure Inpt VTE Proph given/why not?: Warfarin (Coumadin)
[2016-06-01 10:28] VITALS: BP 168/86; PULSE 86; TEMP 36.3; O2SAT 90
[2016-06-01 10:54] VITALS: BP 111/85; PULSE 86; TEMP 36.5; O2SAT 94
--- NOTE | 2016-06-01 13:12 | CARDIOLOGY CONSULTATION ---
DATE OF CONSULTATION: 06/01/2016 DATE OF CONSULTATION: 06/01/2016. PERTINENT HISTORY: Mr. Smith is a 65-year-old white male admitted yesterday with palpitations. This consultation was ordered to assist in his cardiac management. Of note, the patient is well known to me as I have cared for him for over 20 years. The patient was in his usual state of health until yesterday afternoon at 3:00 p.m. when he had the acute onset of discomfort in the left arm that he describes as a "fluttering." He noted palpitations and his heart rate was elevated. He eventually talk 0.5 mg of Ativan and "began to walk around". As his symptoms persisted, he presented to the Emergency Room for further care. The patient has a longstanding history of permanent atrial fibrillation on occasion, does note an increased heart rate and palpitations. However, with the episode as described above, the patient became quite anxious. The patient also has a longstanding history of coronary artery disease. He had stents placed in his LAD back in 1994 and 1996. He presented with acute coronary syndrome in August of 2007 and had bare metal stents placed in the LAD and the right coronary artery. The patient has a known ischemic cardiomyopathy with an ejection fraction varying from 35-50%. He was seen at [facility] by Dr. James back in February. He had complaints of exertional dyspnea and palpitations. A 40-hour Holter monitor noted PVC burden of 7%. The patient's metoprolol was increased at that time and his digoxin discontinued. An echocardiogram noted an ejection fraction of 40-45% with evidence of a small chronic pericardial effusion. We performed a stress test with [facility] imaging back in April. This noted to large anteroapical NE without evidence of myocardial ischemia. Ejection fraction on that study was estimated at 25%. Follow-up echocardiogram performed on 05/11/2016 noted an ejection fraction of 35-40% with a large anteroapical wall motion abnormality. There is evidence of mild aortic, mitral, and tricuspid regurgitation. The small chronic pericardial effusion was again identified. Currently, the patient is resting comfortably in bed without complaints. PAST MEDICAL HISTORY: 1. Coronary artery disease. 2. LAD stents - 1994, 1996. 3. Acute coronary syndrome - August 2007 -- LAD and RCA bare metal stents. 4. Ischemic cardiomyopathy -- ejection fraction of 40%. 5. 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 6. Mild aortic insufficiency. 7. Chronic pericardial effusion. 8. Permanent atrial fibrillation. 9. Hypertension. 10. Moderate left ventricular hypertrophy. 11. Hypercholesterolemia. 12. Pulmonary hypertension. 13. Obstructive sleep apnea. 14. Diabetes mellitus. 15. DJD. 16. Sciatica. MEDICATIONS: 1. Metoprolol succinate 100 mg daily. 2. Cozaar 100 mg daily. 3. Lasix 40 mg b.i.d. and p.r.n. 4. Digoxin 0.25 mg daily. 5. Coumadin. 6. Aspirin 81 mg per day. 7. Potassium 10 mEq daily. 8. Lipitor 40 mg at bedtime. 9. Celexa 20 mg daily. ALLERGIES: 1. CODEINE. 2. PENICILLIN. 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 Does not use tobacco or alcohol. FAMILY HISTORY: No early coronary artery disease. REVIEW OF SYSTEMS: A 10-point review of systems was negative except for that described above. PHYSICAL EXAMINATION: GENERAL: This is a well-developed, well-nourished, white male seated in the bedside chair without complaints. VITAL SIGNS: Blood pressure is 110/85 with an irregular pulse of 85. Respiratory rate is 16. The patient is afebrile at 36.5 degrees Celsius. Saturations 94% on room air. HEAD, EYES, EARS, NOSE, AND THROAT EXAMINATION: Negative. NECK: Supple with full carotid upstrokes. No carotid bruits. Jugular venous pressure is flat at 90 degrees. There is no thyromegaly. CARDIOVASCULAR EXAMINATION: Reveals an irregular, irregular rhythm with distant heart sounds. No obvious murmurs. No S3. LUNGS: Clear without rales, rhonchi, or wheezes. ABDOMEN: Soft and nontender without bruits. EXTREMITIES: Reveal intact radial artery and posterior tibial pulses bilaterally. There is 2+ nonpitting lower extremity edema. LABORATORY DATA: CBC notes hemoglobin 15.5, hematocrit 40.5, white count 6.1, platelet count 123,000. Electrolytes note a sodium of 140, potassium 3.9, chloride 102, bicarb 33, BUN 15, creatinine 0.85, glucose 117. Troponin I levels are normal at 0.018, 0.02, and 0.018. CK is 87 with MB fraction 1.0. EKG notes atrial fibrillation with a controlled ventricular response. There is an old anteroseptal myocardial infarction. Chest x-ray notes cardiomegaly but no evidence of congestive failure. ship officer notes rate controlled atrial fibrillation. IMPRESSION: Mr. Smith noted palpitations and an elevated ventricular response to his atrial fibrillation yesterday. Fortunately, 3 sets of cardiac enzymes are negative. There have been no ischemic changes on his EKG. He had a nuclear stress test performed in April which showed no evidence of myocardial ischemia, simply his old anteroapical infarction. His digoxin was just restarted yesterday. Hopefully, as this medication reaches steady state, it may help better control his resting ventricular response. Suspect that a component of anxiety accelerated his symptoms yesterday. PLAN: 1. Continue usual outpatient medications. 2. No need for stress testing as one was just performed last month. 3. Further recommendations depending on his clinical course.
[2016-06-01] MEDS ORDERED: WARFARIN SOD 5 MG TAB PO SCH (16:00)
[2016-06-01] MEDS ORDERED: DIGOXIN 0.25 MG TAB PO SCH (16:00)
[2016-06-02] MEDS ORDERED: WARFARIN SOD 2.5 MG TAB PO SCH (16:00)
[2016-10-21] MEDS ORDERED: LOSA50TA6 PO (11:26)
== END 2016-06-01 11:25 | disposition home or self-care (01) ==
LOC: ENRESERVDT → CANRESERV → ENRESERVTM → C.EDB 15:48 → C.2T 17:29
PROVIDERS: ADMIT Internal Medicine; ATTEND Internal Medicine
DX: R07.89 Other chest pain (principal); I48.2 Chronic atrial fibrillation; I25.10 Atherosclerotic heart disease of native coronary artery without angina pectoris; I25.5 Ischemic cardiomyopathy; I10 Essential (primary) hypertension; G47.33 Obstructive sleep apnea (adult) (pediatric); I50.42 Chronic combined systolic (congestive) and diastolic (congestive) heart failure; E11.9 Type 2 diabetes mellitus without complications; E78.00 Pure hypercholesterolemia, unspecified; I35.1 Nonrheumatic aortic (valve) insufficiency; I25.2 Old myocardial infarction; Z66 Do not resuscitate; Z79.01 Long term (current) use of anticoagulants; Z79.82 Long term (current) use of aspirin; Z88.5 Allergy status to narcotic agent; Z88.0 Allergy status to penicillin; Z90.49 Acquired absence of other specified parts of digestive tract; Z83.3 Family history of diabetes mellitus; Z82.49 Family history of ischemic heart disease and other diseases of the circulatory system

== ENCOUNTER 2016-07-31 10:38 | Emergency (ER) | payer OTHER, MEDICARE ==
[~2016-07-31] VITALS: Ht 172.7 cm; Wt 109.8 kg
[~2016-07-31 10:38] MED LIST changes: -ASPI325T45 PO; -ATEN50TA8 PO; -CLOP1TAB15 PO; -DIGO0.2518 PO; -MECL25TA2 PO; -METF500T PO; +SITA50TA PO
[2016-07-31 10:57] VITALS: TEMP 36.7; Ht 172.7 cm; Wt 109.8 kg
[2016-07-31] MEDS ORDERED: CITA40TA4 PO (11:26)
--- NOTE | 2016-07-31 11:44 | EMERGENCY ROOM VISIT NOTE ---
History First contact with patient: 11:03 Chief Complaint: ANXIETY Stated Complaint: ANXIETY ATTACK HX: CARDIAC History of Present Illness The patient is a 66 year old male who presents to the Emergency Room with complaints of worsening anxiety attacks. The patient states that this morning, he had "an anxiety attack" which lasted for approximately 3 hours. He states that he felt extremely nervous, jittery, unable to sit still, and unable to concentrate. He took 0.5 mg of Ativan which did help to resolve his symptoms. He has been having episodes similar to these 1-2 times daily for the past 6 months. The patient states that prior to the onset of these events, he had an appointment in [place] with a credit collections manager and states that he was told "that his heart was wearing out and there was nothing more they could do for it." He does admit to feeling very anxious about this. The patient has a history of heart attacks and has had several stents. He has atrial fibrillation and takes digoxin and Coumadin. The patient was admitted here 2 months ago for a cardiac workup because at that time, he had been having chest pain. The patient takes citalopram 40 mg daily. He recently increased from 20 mg daily to 40 mg daily one month ago. He is asymptomatic at this time. He denies any chest pain, shortness of breath, headache, neck pain, syncope or dizziness. Review of Systems A complete 10 point review of systems was reviewed with the patient with pertinent positives and negatives as per history of present illness. All else were negative. Past Medical/Surgical History Medical Problems: (1) Atrial fibrillation, chronic (2) CAD (coronary artery disease) (3) Diabetes mellitus type II, controlled (4) Dyslipidemia (5) HTN (hypertension) (6) ANTOINETTE on CPAP (7) Systolic CHF Surgical Problems: (1) History of partial colectomy (2) Stented coronary artery Family History Diabetes mellitus FH: cancer FH: heart disease Hypertension Social History Smoking Status: Never Smoker Alcohol Use: none Drug Use: none Marital Status: Housing Status: lives with significant other Occupation Status: employed, other Current/Historical Medications Scheduled Aspirin (Aspirin 81 Low Dose), 81 MG PO QAM Atorvastatin (Lipitor), 40 MG PO QPM Citalopram Hydrobromide (Citalopram Hydrobromide), 1 TAB PO DAILY Digoxin (Digoxin), 0.25 MG PO QAM Furosemide (Lasix), 40 MG PO BID Glimepiride (Glimepiride), 2 MG PO QAM Glimepiride (Amaryl), 4 MG PO QAM Losartan Potassium (Cozaar), 50 MG PO BID Metformin HCl (Metformin HCl ER), 500 MG PO BID Metoprolol Succ (Toprol Xl) (Toprol-Xl ), 100 MG PO BID Potassium Chloride (Potassium Chloride ER), 10 MEQ PO QAM Warfarin Sodium (Warfarin Sodium), 5 MG PO MWF Warfarin Sodium (Warfarin Sodium), 2.5 MG PO 4XWK Scheduled PRN Lorazepam (Ativan), 0.5-1 MG PO TID PRN for Panic Allergies Coded Allergies: Penicillins (Verified Allergy, Unknown, 05/31/16) Codeine (Verified Adverse Reaction, Unknown, NAUSEA, LIGHTHEADEDNESS, 05/31) Physical Exam Vital Signs Date Time Temp Pulse Resp B/P Pulse Ox O2 Delivery O2 Flow Rate FiO2 07/31/16 13:07 62 18 125/64 92 07/31/16 10:57 36.7 68 20 141/76 93 Room Air Physical Exam VITALS: Vitals are noted on the nurse's note and reviewed by myself. Vital signs stable. GENERAL: This is a 66-year-old male, in no acute distress, nondiaphoretic, well- developed well-nourished. SKIN: Capillary reflex less than 2 seconds. HEENT: Normocephalic. PERRLA. EOMI. Nares patent. Mucous membranes moist. Neck is supple without nuchal rigidity. HEART: Irregularly irregular rhythm, regular rate without murmurs gallops or rubs. LUNGS: Clear to auscultation bilaterally without wheezes, rales or rhonchi. NEURO: Patient was alert and oriented to person place and time. Medical Decision & Procedures ER Provider Diagnostic Interpretation: CHEST ONE VIEW PORTABLE CLINICAL HISTORY: Anxiety. COMPARISON STUDY: Chest radiograph May 31, 2016. FINDINGS: There is no pneumothorax. There is no evidence of pulmonary edema. There is a possible small right pleural effusion. Marked cardiomegaly is unchanged. There is no lobar consolidation. IMPRESSION: 1. Stable marked cardiomegaly. No evidence of pulmonary edema. 2. Possible small right pleural effusion. Laboratory Results 07/31/16 11:55 Red Blood Count 4.42, Mean Corpuscular Volume 94.3, Mean Corpuscular Hemoglobin 31.2, Mean Corpuscular Hemoglobin Concent 33.1, Mean Platelet Volume 9.3, Neutrophils (%) (Auto) 74.8, Lymphocytes (%) (Auto) 11.9, Monocytes (%) (Auto) 11.9, Eosinophils (%) (Auto) 1.0, Basophils (%) (Auto) 0.2, Neutrophils # (Auto ) 4.46, Lymphocytes # (Auto) 0.71, Monocytes # (Auto) 0.71, Eosinophils # (Auto ) 0.06, Basophils # (Auto) 0.01 07/31/16 11:55 Test 07/31/16 11:55 White Blood Count 5.96 K/uL (4.8-10.8) Red Blood Count 4.42 M/uL (4.7-6.1) Hemoglobin 13.8 g/dL (14.0-18.0) Hematocrit 41.7 % (42-52) Mean Corpuscular Volume 94.3 fL (80-100) Mean Corpuscular Hemoglobin 31.2 pg (25-34) Mean Corpuscular Hemoglobin Concent 33.1 g/dl (32-36) Platelet Count 136 K/uL (130-400) Mean Platelet Volume 9.3 fL (7.4-10.4) Neutrophils (%) (Auto) 74.8 % Lymphocytes (%) (Auto) 11.9 % Monocytes (%) (Auto) 11.9 % Eosinophils (%) (Auto) 1.0 % Basophils (%) (Auto) 0.2 % Neutrophils # (Auto) 4.46 K/uL (1.4-6.5) Lymphocytes # (Auto) 0.71 K/uL (1.2-3.4) Monocytes # (Auto) 0.71 K/uL (0.11-0.59) Eosinophils # (Auto) 0.06 K/uL (0-0.5) Basophils # (Auto) 0.01 K/uL (0-0.2) RDW Standard Deviation 50.9 fL (36.4-46.3) RDW Coefficient of Variation 14.8 % (11.5-14.5) Immature Granulocyte % (Auto) 0.2 % Immature Granulocyte # (Auto) 0.01 K/uL (0.00-0.02) Prothrombin Time 30.7 SECONDS (9.0-12.0) Prothromb Time International Ratio 2.8 (0.9-1.1) Activated Partial Thromboplast Time 32.9 SECONDS (21.0-31.0) Partial Thromboplastin Ratio 1.3 Anion Gap 6.0 mmol/L (3-11) Est Creatinine Clear Calc Drug Dose 109.1 ml/min Estimated GFR () 107.9 Estimated GFR (Non- 93.1 BUN/Creatinine Ratio 23.2 (10-20) Calcium Level 8.2 mg/dl (8.5-10.1) Magnesium Level 1.9 mg/dl (1.8-2.4) Total Bilirubin 1.2 mg/dl (0.2-1) Aspartate Amino Transf (AST/SGOT) 16 U/L (15-37) Alanine Aminotransferase (ALT/SGPT) 25 U/L (12-78) Alkaline Phosphatase 74 U/L (45-117) Troponin I 0.024 ng/ml (0-0.045) Total Protein 7.1 gm/dl (6.4-8.2) Albumin 3.8 gm/dl (3.4-5.0) Globulin 3.3 gm/dl (2.5-4.0) Albumin/Globulin Ratio 1.2 (0.9-2) Thyroid Stimulating Hormone (TSH) 1.800 uIu/ml (0.300-4.500) ECG Rate (beats per minute): 67 Rhythm: atrial fibrillation Change: no significant change ED Course The patient was evaluated as above. Labs were drawn and IV access was obtained. Patient was reevaluated and remained asymptomatic. Findings were discussed with the patient. Discharge instructions were reviewed with the patient. The patient verbalized understanding of my assessment and treatment plan and was discharged home in good condition. Medical Decision Differential diagnosis includes anxiety, arrhythmia, ACS, hyperthyroidism, electrolyte abnormality, among others. The patient is a 66-year-old male who presents today complaining of frequent anxiety attacks. He is concerned because he has a cardiac history. Labs revealed no leukocytosis. There is a mild anemia which is stable for the patient. Troponin was not elevated. TSH is within normal limits. EKG showed atrial fibrillation which is unchanged from a previous EKG. The patient does have a history of anxiety and has been having these panic Attacks daily for the past several months. He does report that prior to the onset of these, he was told that his heart was failing and he is very concerned about this. The patient was reassured. He had a recent admission for chest pain and there appeared to be no acute cardiac issues. He had a recent stress test which was negative. The patient recently started seeing a counselor and will continue to follow-up with them. He has an appointment with his primary care provider this week. I do not feel that he requires any inpatient treatment at this time. The patient was agreeable to this and will return with any worsening or concerning symptoms. The patient's case was reviewed with Dr. Sinha, ED attending physician, who agreed with my assessment and treatment plan. Based on the patient's presentation and work up, I feel the patient is stable for outpatient treatment. The patient was educated to return to the emergency department for any worsening of their current condition or new/concerning symptoms. He will follow up with his primary care provider. Impression Primary Impression: Anxiety Departure Information Dispostion Home / Self-Care Condition GOOD Referrals Delmer Gracia M.D. (PCP) Patient Instructions My [facility] Additional Instructions Follow up with Dr. Gracia this week and [facility] as scheduled. Return to the ER for any worsening or new/concerning symptoms.
[2016-07-31 12:03] LABS: BASO % 0.2 %; BASO ABS # 0.01 K/uL (0-0.2); COMPLETE YES; HEMATOCRIT 41.7 % (42-52); IG% 0.2 %; LYMPH % 11.9 %; LYMPH ABS # 0.71 K/uL (1.2-3.4); MEAN CELL VOLUME 94.3 fL (80-100); MEAN CORPUSCULAR HEMOGLOBIN 31.2 pg (25-34); MEAN CORPUSCULAR HGB CONC 33.1 g/dl (32-36); MEAN PLATELET VOLUME 9.3 fL (7.4-10.4); MONO % 11.9 %; NEUT % 74.8 %; PLATELET COUNT 136 K/uL (130-400); RED BLOOD COUNT 4.42 M/uL (4.7-6.1); WHITE BLOOD COUNT 5.96 K/uL (4.8-10.8)
[2016-07-31 12:11] LABS: INR 2.8 (0.9-1.1); PARTIAL THROMBOPLASTIN RATIO 1.3; PROTHROMBIN TIME (PATIENT) 30.7 SECONDS (9.0-12.0)
[2016-07-31 12:20] LABS: BUN/CREATININE RATIO 23.2 (10-20); CALCIUM 8.2 mg/dl (8.5-10.1); CREATININE 0.8 mg/dl (0.60-1.40); MAGNESIUM 1.9 mg/dl (1.8-2.4); POTASSIUM 3.6 mmol/L (3.5-5.1)
[2016-07-31 12:30] LABS: ALB/GLOB RATIO 1.2 (0.9-2); THYROID STIMULATING HORMONE 1.8 uIu/ml (0.300-4.500)
[2016-07-31 13:07] VITALS: BP 125/64; PULSE 62; O2SAT 92
[2016-10-21] MEDS ORDERED: LOSA50TA6 PO (11:26)
[2016-10-21] MEDS ORDERED: METO100T44 PO (16:59)
[2017-01-19] MEDS ORDERED: PRED-301 PO (13:27)
[2017-02-12] MEDS ORDERED: LVQ750 PO (10:32)
== END 2016-07-31 13:08 | disposition home or self-care (01) ==
LOC: C.EDB 10:43 → C.EDA 13:08
DX: F41.9 Anxiety disorder, unspecified (principal); I10 Essential (primary) hypertension; E78.5 Hyperlipidemia, unspecified; I48.91 Unspecified atrial fibrillation; I25.10 Atherosclerotic heart disease of native coronary artery without angina pectoris; G47.33 Obstructive sleep apnea (adult) (pediatric); I50.20 Unspecified systolic (congestive) heart failure; Z98.61 Coronary angioplasty status; Z79.01 Long term (current) use of anticoagulants; Z79.82 Long term (current) use of aspirin; Z79.4 Long term (current) use of insulin; Z79.899 Other long term (current) drug therapy; Z88.0 Allergy status to penicillin; Z88.5 Allergy status to narcotic agent; Z83.3 Family history of diabetes mellitus; Z80.9 Family history of malignant neoplasm, unspecified; Z82.49 Family history of ischemic heart disease and other diseases of the circulatory system

== ENCOUNTER 2016-08-12 20:20 | Emergency (ER) | payer OTHER, MEDICARE ==
[~2016-08-12] VITALS: Ht 172.7 cm; Wt 110.4 kg
[~2016-08-12 20:20] MED LIST changes: -CITA20TA4 PO; +CITA40TA4 PO; -LOSA100T65 PO; -SITA50TA PO
[2016-08-12 20:25] VITALS: Ht 172.7 cm; Wt 110.4 kg
--- NOTE | 2016-08-12 21:38 | EMERGENCY ROOM VISIT NOTE ---
History Report prepared by David: Anh Sweet Under the Supervision of: Dr. Harrison Falcon D.O. First contact with patient: 21:02 Chief Complaint: ANXIETY Stated Complaint: ANXIETY ATTACK History of Present Illness The patient is a 66 year old male who presents to the Emergency Room with complaints of worsening anxiety. He had an anxiety attack today around 1730 today. He was at work when it happened. At around 1700, he had experienced some computer troubles at work and had been slightly worked up, but not significantly upset. Around 30 minutes later, the anxiety attack started. His mouth became dry and he started feeling SOB. He then had to get up and started pacing. He has been having anxiety attacks since February. They usually last 30 minutes to an hour, but recently they have been lasting up to 4 hours. He has followed with his doctor for this and is currently on Prozac and Ativan. He was started on Prozac 3 days ago. He took Ativan at 1600 which has calmed him down. He has not previously been admitted for anxiety and currently would not like to be admitted. He is currently seeing a therapist. He denies any auditory hallucinations or thoughts of hurting himself. He was in the ED 2 weeks ago for anxiety. He was found to be medically clear. Source of History: patient Onset: earlier today Position: other (mental health) Quality: other (anxiety) Timing: worsening Associated Symptoms: + SOB Note: Pt reports dry mouth, pacing. Pt denies auditory hallucination, thoughts of hurting himself. Review of Systems See HPI for pertinent positives & negatives. A total of 10 systems reviewed and were otherwise negative. Past Medical & Surgical Medical Problems: (1) Atrial fibrillation, chronic (2) CAD (coronary artery disease) (3) Diabetes mellitus type II, controlled (4) Dyslipidemia (5) HTN (hypertension) (6) ANTOINETTE on CPAP (7) Systolic CHF Surgical Problems: (1) History of partial colectomy (2) Stented coronary artery Family History Diabetes mellitus FH: cancer FH: heart disease Hypertension Social History Smoking Status: Current Every Day Smoker Alcohol Use: none Drug Use: none Marital Status: Housing Status: lives with significant other Occupation Status: employed, other Current/Historical Medications Scheduled Aspirin (Aspirin 81 Low Dose), 81 MG PO QAM Atorvastatin (Lipitor), 40 MG PO QPM Buspirone Hcl (Buspar), 15 MG PO QAM Digoxin (Digoxin), 0.25 MG PO QAM Fluoxetine (Prozac), 20 MG PO QAM Furosemide (Lasix), 40 MG PO BID Glimepiride (Glimepiride), 2 MG PO QAM Glimepiride (Amaryl), 4 MG PO QAM Losartan Potassium (Cozaar), 50 MG PO QAM Metformin HCl (Metformin HCl ER), 500 MG PO BID Metoprolol Succ (Toprol Xl) (Toprol-Xl ), 100 MG PO BID Potassium Chloride (Potassium Chloride ER), 10 MEQ PO QAM Warfarin Sodium (Warfarin Sodium), 5 MG PO MWF Warfarin Sodium (Warfarin Sodium), 2.5 MG PO 4XWK Scheduled PRN Lorazepam (Ativan), 0.5-1 MG PO TID PRN for Panic Allergies Coded Allergies: Penicillins (Verified Allergy, Unknown, 08/12/16) Codeine (Verified Adverse Reaction, Unknown, NAUSEA, LIGHTHEADEDNESS, 08/12) Physical Exam Vital Signs Date Time Temp Pulse Resp B/P Pulse Ox O2 Delivery O2 Flow Rate FiO2 08/12/16 22:44 36.8 71 18 137/67 94 08/12/16 22:12 71 18 137/67 94 Room Air 08/12/16 20:25 36.8 71 18 145/75 94 Room Air Physical Exam GENERAL: Patient is awake, alert, and in no acute distress. Patient is resting comfortably and showing no signs of anxiety EYES: The conjunctivae are clear. The pupils are round and reactive. EARS, NOSE, MOUTH AND THROAT: The nose is without any evidence of any deformity. Mucous membranes are moist tongue is midline NECK: The neck is nontender and supple. RESPIRATORY: Normal respiratory effort is noted there is no evidence of wheezing rhonchi or rales CARDIOVASCULAR: Regular rate and rhythm noted there no murmurs rubs or gallops normal S1 normal S2 GASTROINTESTINAL: The abdomen is soft. Bowel sounds are present in all quadrants. Abdomen is nontender MUSCULOSKELETAL/EXTREMITIES: There is no evidence of gross deformity full range of motion is noted in the hips and shoulders SKIN: Bilateral pedal edema noted with venous stasis changes in both lower extremities, skin is warm and dry. NEUROLOGIC: Patient is awake alert and oriented x3 PSYCH: Non-anxious appearing and calm, affect is flat, patient makes good eye contact, currently denies SI/HI. Medical Decision & Procedures ED Course 2108: The patient was evaluated in room A8. A complete history and physical examination were performed. 2239: Upon reevaluation, the patient is resting comfortably. I discussed the results and treatment plan with him. He verbalized agreement of the treatment plan. He was discharged home. Medical Decision Prior records/ancillary studies reviewed. Triage Nursing notes reviewed. Medication Reconciliation: I attest that I have personally reviewed the patient' s current medications list. The patient's history was concerning for possible psychiatric disturbance. Differential diagnosis: Etiologies such as mood disorder, infection, hypoglycemia, electrolyte abnormalities, cardiac sources, intracerebral event, toxicologic, neurologic, as well as others were entertained. Blood pressure screening: Patient was found to have normal blood pressure on screening and does not require follow-up. The patient is a 66-year-old male who presented to emergency department for an evaluation of anxiety attack. The patient has a long history of anxiety and has recently started to see a therapist for this. He states that he first started having symptoms around the beginning of the year. The patient is taking medications for this and sounds though he took his medication earlier today with the anxiety attack and is feeling much better at this time. He presented to the emergency department because he is very frustrated and is unsure what to do at this time. The patient does not have any suicidal ideation. He does not meet any specific criteria for inpatient management or even involuntary inpatient management. The patient was evaluated by the mental health delegate in the emergency department. He was felt to be a good candidate for outpatient management and I agree with this plan. I reviewed the patient's recent visit for similar complaints. I do not feel the patient requires a medical clearance at this time. He was encouraged to rest and avoid any strenuous activity. He was also encouraged to call his primary care physician to schedule a follow-up appointment. He was also encouraged to call crisis or return to the emergency department immediately if symptoms change worsen or the need arises. Impression Primary Impression: Anxiety reaction Scribe Attestation The scribe's documentation has been prepared under my direction and personally reviewed by me in its entirety. I confirm that the note above accurately reflects all work, treatment, procedures, and medical decision making performed by me. Departure Information Dispostion Home / Self-Care Referrals No Doctor, Assigned (PCP) Forms HOME CARE DOCUMENTATION FORM, IMPORTANT VISIT INFORMATION, Work Instructions Patient Instructions Anxiety Disorder, My [facility] Additional Instructions Continue all medications as prescribed. Avoid any strenuous or stressful activities. Follow-up with your therapist next week for reevaluation. Return to the emergency department immediately if symptoms change worsen or the need arises.
[2016-08-12] MEDS ORDERED: BUSP15TA70 PO (22:07)
[2016-08-12 22:44] VITALS: BP 137/67; PULSE 71; TEMP 36.8; O2SAT 94
[2016-10-21] MEDS ORDERED: LOSA50TA6 PO (11:26)
[2016-10-21] MEDS ORDERED: METO100T44 PO (16:59)
[2017-01-19] MEDS ORDERED: PRED-301 PO (13:27)
[2017-02-12] MEDS ORDERED: LVQ750 PO (10:32)
== END 2016-08-12 22:44 | disposition home or self-care (01) ==
LOC: C.EDB 20:21 → C.EDA 22:44
DX: F41.9 Anxiety disorder, unspecified (principal); R06.02 Shortness of breath; I48.2 Chronic atrial fibrillation; I25.10 Atherosclerotic heart disease of native coronary artery without angina pectoris; E11.9 Type 2 diabetes mellitus without complications; I10 Essential (primary) hypertension; E78.5 Hyperlipidemia, unspecified; G47.33 Obstructive sleep apnea (adult) (pediatric); I50.20 Unspecified systolic (congestive) heart failure; Z79.01 Long term (current) use of anticoagulants; Z79.82 Long term (current) use of aspirin; Z79.84 Long term (current) use of oral hypoglycemic drugs; Z79.899 Other long term (current) drug therapy; Z82.49 Family history of ischemic heart disease and other diseases of the circulatory system; Z83.3 Family history of diabetes mellitus; F17.200 Nicotine dependence, unspecified, uncomplicated

== ENCOUNTER 2016-08-26 17:56 | Emergency (ER) | payer OTHER, MEDICARE ==
[~2016-08-26] VITALS: Ht 172.7 cm; Wt 110.7 kg
[~2016-08-26 17:56] MED LIST changes: +BUSP15TA70 PO; -CITA40TA4 PO
[2016-08-26 18:00] VITALS: TEMP 36.7; Ht 172.7 cm; Wt 110.7 kg
[2016-08-26 18:43] LABS: URINE APPEARANCE CLEAR (CLEAR); URINE BILIRUBIN NEG (NEG); URINE COLOR YELLOW; URINE EPITHELIAL CELL AUTO 20-30 /lpf (0-5); URINE NITRITE NEG (NEG); URINE SPECIFIC GRAVITY 1.012 (1.000-1.030); UROBILINOGEN NEG (NEG)
[2016-08-26 18:55] LABS: MANUAL MICROSCOPIC REQUIRED? NO; REVIEW REQ? NO
[2016-08-26 19:07] LABS: BASO % 0.1 %; BASO ABS # 0.01 K/uL (0-0.2); COMPLETE YES; EOS % 0.8 %; HEMATOCRIT 42.3 % (42-52); IG% 0.3 %; LYMPH % 13.5 %; MEAN CORPUSCULAR HEMOGLOBIN 31.3 pg (25-34); MEAN CORPUSCULAR HGB CONC 33.3 g/dl (32-36); MEAN PLATELET VOLUME 9.9 fL (7.4-10.4); MONO % 10.5 %; NEUT % 74.8 %; PLATELET COUNT 159 K/uL (130-400); WHITE BLOOD COUNT 7.43 K/uL (4.8-10.8)
[2016-08-26 19:15] LABS: BUN/CREATININE RATIO 21.8 (10-20); CALCIUM 8.2 mg/dl (8.5-10.1); CREATININE 0.9 mg/dl (0.60-1.40)
[2016-08-26 19:24] LABS: BENZODIAZEPINE, URINE NEG (NEG); COCAINE,URINE NEG (NEG); PHENCYCLIDINE, URINE NEG (NEG)
[2016-08-26 19:25] LABS: THYROID STIMULATING HORMONE 2.53 uIu/ml (0.300-4.500)
[2016-08-26 20:40] VITALS: BP 125/61; PULSE 84; O2SAT 93
--- NOTE | 2016-08-27 01:58 | EMERGENCY ROOM VISIT NOTE ---
History Report prepared by David: Robert Awan Under the Supervision of: Dr. Chapo Ryder D.O. First contact with patient: 18:07 Chief Complaint: ANXIETY Stated Complaint: ANXIETY ATTACK History of Present Illness The patient is a 66 year old male who presents to the Emergency Room with complaints of a resolved anxiety attack that occurred prior to arrival. 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 He reports that he closed the gonsalez drawer and all of a sudden started crying. The patient states that he was not thinking of anything in particular. He notes that he has been fighting anxiety for the past six months. The patient denies being anxious, depressed, and having suicidal or homicidal intentions. He reports that he likes his job and is looking forward to his upcoming vacation. The patient states that he takes Ativan for his symptoms, and it typically works within an hour of taking it. He notes that he can feel his attacks coming on because his mouth gets dry. The patient's states she does not know what to do for his attacks. She reports that she blames herself because it typically happens when she is around. The notes that she was at his work when it happened. She states that when his attacks come on, he starts pacing and cannot stop. Source of History: patient, spouse/significant other Onset: prior to arrival Position: other (global) Quality: other (anxiety attack) Timing: resolved Note: The patient denies being anxious, depressed, and having suicidal or homicidal intentions. Review of Systems See HPI for pertinent positives & negatives. A total of 10 systems reviewed and were otherwise negative. Past Medical & Surgical Medical Problems: (1) Atrial fibrillation, chronic (2) CAD (coronary artery disease) (3) Diabetes mellitus type II, controlled (4) Dyslipidemia (5) HTN (hypertension) (6) ANTOINETTE on CPAP (7) Systolic CHF Surgical Problems: (1) History of partial colectomy (2) Stented coronary artery Family History Diabetes mellitus FH: cancer FH: heart disease Hypertension Social History Smoking Status: Never Smoker Alcohol Use: none Drug Use: none Marital Status: Housing Status: lives with significant other Occupation Status: employed, other Current/Historical Medications Scheduled Aspirin (Aspirin 81 Low Dose), 81 MG PO QAM Atorvastatin (Lipitor), 40 MG PO QPM Buspirone Hcl (Buspar), 15 MG PO QAM Digoxin (Digoxin), 0.25 MG PO QAM Fluoxetine (Prozac), 20 MG PO QAM Furosemide (Lasix), 40 MG PO BID Glimepiride (Glimepiride), 2 MG PO QAM Glimepiride (Amaryl), 4 MG PO QAM Losartan Potassium (Cozaar), 50 MG PO QAM Metformin HCl (Metformin HCl ER), 500 MG PO BID Metoprolol Succ (Toprol Xl) (Toprol-Xl ), 100 MG PO BID Potassium Chloride (Potassium Chloride ER), 10 MEQ PO QAM Warfarin Sodium (Warfarin Sodium), 5 MG PO MWF Warfarin Sodium (Warfarin Sodium), 2.5 MG PO 4XWK Scheduled PRN Lorazepam (Ativan), 0.5-1 MG PO TID PRN for Panic Allergies Coded Allergies: Penicillins (Verified Allergy, Unknown, 08/26/16) Codeine (Verified Adverse Reaction, Unknown, NAUSEA, LIGHTHEADEDNESS, ) Physical Exam Vital Signs Date Time Temp Pulse Resp B/P (MAP) Pulse Ox O2 Delivery O2 Flow Rate FiO2 08/26/16 20:40 84 16 125/61 93 08/26/16 18:00 36.7 81 17 140/64 93 Room Air Physical Exam GENERAL: alert, well appearing, well nourished, no distress, non-toxic, sitting up in bed, anxious EYE EXAM: normal conjunctiva, PERRL and EOM's grossly intact OROPHARYNX: no exudate, no erythema, lips, buccal mucosa, and tongue normal and mucous membranes are moist NECK: supple, no nuchal rigidity, no adenopathy, non-tender LUNGS: Clear to auscultation. Normal chest wall mechanics HEART: no murmurs, S1 normal and S2 normal ABDOMEN: abdomen soft, non-tender, normo-active bowel sounds, no masses, no rebound or guarding. BACK: Back is symmetrical on inspection and there is no deformity, no midline tenderness, no CVA tenderness. SKIN: no rashes and no bruising UPPER EXTREMITIES: upper extremities are grossly normal. LOWER EXTREMITIES: No pitting edema. NEURO EXAM: Normal sensorium, cranial nerves II-XII intact, normal speech, no weakness of arms, no weakness of legs. PSYCH: Denies suicidal and homicidal intentions. Denies auditory and visual hallucination, admits anxiety and intermittent doubts of crying. Medical Decision & Procedures Laboratory Results 08/26/16 18:43 Red Blood Count 4.50, Mean Corpuscular Volume 94.0, Mean Corpuscular Hemoglobin 31.3, Mean Corpuscular Hemoglobin Concent 33.3, Mean Platelet Volume 9.9, Neutrophils (%) (Auto) 74.8, Lymphocytes (%) (Auto) 13.5, Monocytes (%) (Auto) 10.5, Eosinophils (%) (Auto) 0.8, Basophils (%) (Auto) 0.1, Neutrophils # (Auto ) 5.56, Lymphocytes # (Auto) 1.00, Monocytes # (Auto) 0.78, Eosinophils # (Auto ) 0.06, Basophils # (Auto) 0.01 08/26/16 18:43 Test 08/26/16 18:22 08/26/16 18:43 Urine Color YELLOW Urine Appearance CLEAR (CLEAR) Urine pH 6.0 (4.5-7.5) Urine Specific [place] 1.012 (1.000-1.030) Urine Protein TRACE (NEG) Urine Glucose (UA) NEG (NEG) Urine Ketones NEG (NEG) Urine Occult Blood NEG (NEG) Urine Nitrite NEG (NEG) Urine Bilirubin NEG (NEG) Urine Urobilinogen NEG (NEG) Urine Leukocyte Esterase NEG (NEG) Urine WBC (Auto) 1-5 /hpf (0-5) Urine RBC (Auto) 0-4 /hpf (0-4) Urine Hyaline Casts (Auto) 1-5 /lpf (0-5) Urine Epithelial Cells (Auto) 20-30 /lpf (0-5) Urine Bacteria (Auto) NEG (NEG) Urine Opiates Screen NEG (NEG) Urine Methadone, Qualitative NEG (NEG) Urine Barbiturates NEG (NEG) Urine Phencyclidine (PCP) Level NEG (NEG) Ur Amphetamine/Methamphetamine NEG (NEG) MDMA (Ecstasy) Screen NEG (NEG) Urine Benzodiazepines Screen NEG (NEG) Urine Cocaine Metabolite NEG (NEG) Urine Marijuana (THC) NEG (NEG) White Blood Count 7.43 K/uL (4.8-10.8) Red Blood Count 4.50 M/uL (4.7-6.1) Hemoglobin 14.1 g/dL (14.0-18.0) Hematocrit 42.3 % (42-52) Mean Corpuscular Volume 94.0 fL (80-100) Mean Corpuscular Hemoglobin 31.3 pg (25-34) Mean Corpuscular Hemoglobin Concent 33.3 g/dl (32-36) Platelet Count 159 K/uL (130-400) Mean Platelet Volume 9.9 fL (7.4-10.4) Neutrophils (%) (Auto) 74.8 % Lymphocytes (%) (Auto) 13.5 % Monocytes (%) (Auto) 10.5 % Eosinophils (%) (Auto) 0.8 % Basophils (%) (Auto) 0.1 % Neutrophils # (Auto) 5.56 K/uL (1.4-6.5) Lymphocytes # (Auto) 1.00 K/uL (1.2-3.4) Monocytes # (Auto) 0.78 K/uL (0.11-0.59) Eosinophils # (Auto) 0.06 K/uL (0-0.5) Basophils # (Auto) 0.01 K/uL (0-0.2) RDW Standard Deviation 50.9 fL (36.4-46.3) RDW Coefficient of Variation 15.0 % (11.5-14.5) Immature Granulocyte % (Auto) 0.3 % Immature Granulocyte # (Auto) 0.02 K/uL (0.00-0.02) Anion Gap 10.0 mmol/L (3-11) Est Creatinine Clear Calc Drug Dose 97.4 ml/min Estimated GFR () 102.8 Estimated GFR (Non- 88.7 BUN/Creatinine Ratio 21.8 (10-20) Bedside Glucose 80 mg/dl (70-99) Calcium Level 8.2 mg/dl (8.5-10.1) Total Bilirubin 1.2 mg/dl (0.2-1) Direct Bilirubin 0.3 mg/dl (0-0.2) Aspartate Amino Transf (AST/SGOT) 19 U/L (15-37) Alanine Aminotransferase (ALT/SGPT) 22 U/L (12-78) Alkaline Phosphatase 86 U/L (45-117) Total Protein 7.3 gm/dl (6.4-8.2) Albumin 3.8 gm/dl (3.4-5.0) Thyroid Stimulating Hormone (TSH) 2.530 uIu/ml (0.300-4.500) Ethyl Alcohol mg/dL < 3.0 mg/dl (0-3) Laboratory results per my review. ED Course ED COURSE: Vital signs were reviewed and showed hypertension The patients medical record was reviewed The above diagnostic studies were performed and reviewed. ED treatments and interventions as stated above. 1810: The patient was evaluated in room A08. A complete history and physical examination was performed. 1935: I spoke with case management, the patient has an appointment on Monday at [facility]. 2032: Upon reevaluation, the patient does not feel that anyone is going to harm him. I discussed my findings with the patient and he understands and agrees with the treatment plan. Based on the patients age, coexisting illnesses, exam and lab findings the decision to treat as an outpatient was made. The patient remained stable while under my care. The patient appeared well at the time of discharge. Medical Decision Etiologies such as mood disorder, infection, hypoglycemia, electrolyte abnormalities, cardiac sources, intracerebral event, toxicologic, neurologic, as well as others were entertained. Medication Reconciliation: I attest that I have personally reviewed the patient' s current medication list. Blood pressure screening: Patient was found to have an elevated blood pressure and was referred to their primary doctor for recheck and further treatment. Patient is a 66-year-old male who since the ER for crying while at work. He notes that he has been having anxiety since this past February. He denies any suicidal or homicidal ideations. He was brought in by his because she does not know how else to help him. He has an appointment with psychiatry on Monday and does see a therapist. He does not know why he started to cry will working. He enjoys work. He is looking forward to a vacation coming up. CBC along with BMP was unremarkable. Bilirubin was slightly elevated as it has been in the past. TSH is normal. Tox and UA were negative. Patient was evaluated by Giselle from psychiatry. She agreed that he was stable for discharge and will follow-up as an outpatient. I felt this was reasonable especially since he has Ativan at home which does work. He does not appear to be a danger to himself. He does have good insight and is looking into the future for multiple things. felt comfortable taking him home. Discussed with Pt concerning signs and symptoms to watch out for. Pt was instructed to follow up with their PCP and discussed with the patient their option to return to the ED at anytime for persistent or worsening symptoms. The appropriate anticipatory guidance and out-patient management, including indications for return to the emergency department, were explained at length to the patient and understood. Impression Primary Impression: Anxiety reaction Scribe Attestation The scribe's documentation has been prepared under my direction and personally reviewed by me in its entirety. I confirm that the note above accurately reflects all work, treatment, procedures, and medical decision making performed by me. Departure Information Dispostion Home / Self-Care Referrals Delmer Gracia M.D. (PCP) Forms HOME CARE DOCUMENTATION FORM, IMPORTANT VISIT INFORMATION Patient Instructions Anxiety Body Response, My [facility] Additional Instructions Please follow up with your primary care doctor with in the next 24 hours. Any worsening of your symptoms, please return to the ED immediately. This includes pulse of self-harm, thoughts of harming someone else, unable to take care of yourself or any other concerning signs or symptoms from your standpoint.
[2016-10-21] MEDS ORDERED: LOSA50TA6 PO (11:26)
[2016-10-21] MEDS ORDERED: METO100T44 PO (16:59)
[2017-01-19] MEDS ORDERED: PRED-301 PO (13:27)
[2017-02-12] MEDS ORDERED: LVQ750 PO (10:32)
== END 2016-08-26 20:41 | disposition home or self-care (01) ==
LOC: C.EDB 17:56 → C.EDA 20:41
DX: F41.1 Generalized anxiety disorder (principal); I48.91 Unspecified atrial fibrillation; I25.10 Atherosclerotic heart disease of native coronary artery without angina pectoris; E11.9 Type 2 diabetes mellitus without complications; E78.5 Hyperlipidemia, unspecified; I10 Essential (primary) hypertension; G47.33 Obstructive sleep apnea (adult) (pediatric); I50.20 Unspecified systolic (congestive) heart failure; Z83.3 Family history of diabetes mellitus; Z80.9 Family history of malignant neoplasm, unspecified; Z82.49 Family history of ischemic heart disease and other diseases of the circulatory system; Z79.82 Long term (current) use of aspirin; Z79.01 Long term (current) use of anticoagulants; Z79.899 Other long term (current) drug therapy

== ENCOUNTER 2016-09-28 20:59 | Emergency (ER) | payer OTHER, MEDICARE ==
[~2016-09-28] VITALS: Ht 172.7 cm; Wt 106.6 kg
[2016-09-28 21:03] VITALS: TEMP 36.8
[2016-09-29 00:01] LABS: BASO % 0.2 %; BASO ABS # 0.01 K/uL (0-0.2); COMPLETE YES; EOS % 0.8 %; HEMATOCRIT 46.7 % (42-52); IG% 0.2 %; LYMPH % 13.1 %; LYMPH ABS # 0.78 K/uL (1.2-3.4); MEAN CELL VOLUME 94.2 fL (80-100); MEAN CORPUSCULAR HEMOGLOBIN 29.8 pg (25-34); MEAN CORPUSCULAR HGB CONC 31.7 g/dl (32-36); MEAN PLATELET VOLUME 9.9 fL (7.4-10.4); MONO % 13.9 %; NEUT % 71.8 %; PLATELET COUNT 159 K/uL (130-400); RED BLOOD COUNT 4.96 M/uL (4.7-6.1); WHITE BLOOD COUNT 5.97 K/uL (4.8-10.8)
[2016-09-29 00:03] VITALS: Ht 172.7 cm; Wt 106.6 kg
[2016-09-29 00:17] LABS: BUN/CREATININE RATIO 15.8 (10-20); CALCIUM 9.3 mg/dl (8.5-10.1); CREATININE 1.2 mg/dl (0.60-1.40); POTASSIUM 3.8 mmol/L (3.5-5.1)
[2016-09-29 02:00] VITALS: BP 135/77; PULSE 65; O2SAT 93
--- NOTE | 2016-09-29 03:36 | EMERGENCY ROOM VISIT NOTE ---
History First contact with patient: 22:52 Chief Complaint: WOUND INFECTION Stated Complaint: LEFT LEG SEEPING FLUID Nursing Triage Summary: Left leg is seeping clear fluid from multiple areas. Skin is dark, rough & edemedous. Denies pain or weakness. Hx of previously. History of Present Illness The patient is a 66 year old male who presents to the Emergency Room with complaints of left lower leg is seeping fluid for the past day. Patient has not been wearing his DANICA hose. He takes Lasix 40 mg twice a day. His other foot has a wound ulcer with Unna boot on it currently and follows with podiatry. He is a follow-up this Monday with them. Tetanus is current. Patient denies chest pain, dyspnea, fever, chills, cough, congestion, numbness, tingling, redness, bleeding. Review of Systems See HPI for pertinent positives & negatives. A total of 10 systems reviewed and were otherwise negative. Past Medical/Surgical History Medical Problems: (1) Atrial fibrillation, chronic (2) CAD (coronary artery disease) (3) Diabetes mellitus type II, controlled (4) Dyslipidemia (5) HTN (hypertension) (6) ANTOINETTE on CPAP (7) Systolic CHF Surgical Problems: (1) History of partial colectomy (2) Stented coronary artery Family History Diabetes mellitus FH: cancer FH: heart disease Hypertension Social History Smoking Status: Never Smoker Alcohol Use: none Drug Use: none Marital Status: Housing Status: lives with significant other Occupation Status: employed, other Current/Historical Medications Scheduled Aspirin (Aspirin 81 Low Dose), 81 MG PO QAM Atorvastatin (Lipitor), 40 MG PO QPM Buspirone Hcl (Buspirone Hcl), 7.5 MG PO BID Digoxin (Digoxin), 0.25 MG PO QAM Duloxetine HCl (Cymbalta), 30 MG PO QAM Fluoxetine (Prozac), 20 MG PO QAM Furosemide (Lasix), 40 MG PO BID Glimepiride (Glimepiride), 2 MG PO QAM Glimepiride (Amaryl), 4 MG PO QAM Losartan Potassium (Cozaar), 50 MG PO QAM Metformin HCl (Metformin HCl ER), 500 MG PO BID Metoprolol Succ (Toprol Xl) (Toprol-Xl ), 100 MG PO BID Potassium Chloride (Potassium Chloride ER), 20 MEQ PO QAM Warfarin Sodium (Warfarin Sodium), 5 MG PO MWF Warfarin Sodium (Warfarin Sodium), 2.5 MG PO 4XWK Scheduled PRN Clonazepam (Klonopin), 0.25 MG PO TID PRN for Anxiety Allergies Coded Allergies: Penicillins (Verified Allergy, Unknown, 09/28/16) Codeine (Verified Adverse Reaction, Unknown, NAUSEA, LIGHTHEADEDNESS, 09/28) Simvastatin (Verified Adverse Reaction, Unknown, makes him feel like he is high, 09/28/16) Physical Exam Vital Signs Date Time Temp Pulse Resp B/P (MAP) Pulse Ox O2 Delivery O2 Flow Rate FiO2 09/29/16 02:00 65 20 135/77 93 09/29/16 00:25 70 20 128/65 92 Room Air 09/28/16 21:03 36.8 72 18 150/71 95 Room Air Pain Rating (0-10): 0 Physical Exam VITALS: Vitals are noted on the nurse's note and reviewed by myself. Vital signs stable. GENERAL: Pleasant male sitting watching TV, in no acute distress, nondiaphoretic , well-developed well-nourished. SKIN: The skin was without rashes, erythema, edema, or bruising. There is no tenting of the skin. Capillary reflex less than 2 seconds. HEAD: Normocephalic atraumatic. EARS: External auditory canals clear EYES: Pupils equal round and reactive to light and accommodation. Conjunctivae without injection, sclerae without icterus. NOSE: Patent, turbinates without inflammation or discharge. MOUTH: Mucous membranes moist. NECK: Supple without nuchal rigidity. No lymphadenopathy. No thyromegaly. Cervical spine is nontender. No JVD. HEART: Regular rate and rhythm LUNGS: Clear to auscultation bilaterally without wheezes, rales or rhonchi. No dullness to percussion. No retractions or accessory muscle use. ABDOMEN: Positive bowel sounds x 4. Normal tympanic percussion. Soft, nontender, without masses or organomegaly. Tomlin sign negative. No guarding or rebound tenderness. MUSCULOSKELETAL: No muscle atrophy, erythema, noted. Left lower leg edematous with minimal clear fluid draining from the anterior aspect with +1 pitting edema to the mid tib-fib bilaterally. Pedal pulses +2 equal present bilaterally. NEURO: Patient was alert and oriented to person place and time. Normal sensation to light and sharp touch. No focal neurological deficits. Medical Decision & Procedures Laboratory Results 09/28/16 23:30 Red Blood Count 4.96, Mean Corpuscular Volume 94.2, Mean Corpuscular Hemoglobin 29.8, Mean Corpuscular Hemoglobin Concent 31.7, Mean Platelet Volume 9.9, Neutrophils (%) (Auto) 71.8, Lymphocytes (%) (Auto) 13.1, Monocytes (%) (Auto) 13.9, Eosinophils (%) (Auto) 0.8, Basophils (%) (Auto) 0.2, Neutrophils # (Auto ) 4.29, Lymphocytes # (Auto) 0.78, Monocytes # (Auto) 0.83, Eosinophils # (Auto ) 0.05, Basophils # (Auto) 0.01 09/28/16 23:30 Test 09/28/16 23:30 White Blood Count 5.97 K/uL (4.8-10.8) Red Blood Count 4.96 M/uL (4.7-6.1) Hemoglobin 14.8 g/dL (14.0-18.0) Hematocrit 46.7 % (42-52) Mean Corpuscular Volume 94.2 fL (80-100) Mean Corpuscular Hemoglobin 29.8 pg (25-34) Mean Corpuscular Hemoglobin Concent 31.7 g/dl (32-36) Platelet Count 159 K/uL (130-400) Mean Platelet Volume 9.9 fL (7.4-10.4) Neutrophils (%) (Auto) 71.8 % Lymphocytes (%) (Auto) 13.1 % Monocytes (%) (Auto) 13.9 % Eosinophils (%) (Auto) 0.8 % Basophils (%) (Auto) 0.2 % Neutrophils # (Auto) 4.29 K/uL (1.4-6.5) Lymphocytes # (Auto) 0.78 K/uL (1.2-3.4) Monocytes # (Auto) 0.83 K/uL (0.11-0.59) Eosinophils # (Auto) 0.05 K/uL (0-0.5) Basophils # (Auto) 0.01 K/uL (0-0.2) RDW Standard Deviation 51.9 fL (36.4-46.3) RDW Coefficient of Variation 15.0 % (11.5-14.5) Immature Granulocyte % (Auto) 0.2 % Immature Granulocyte # (Auto) 0.01 K/uL (0.00-0.02) Anion Gap 7.0 mmol/L (3-11) Est Creatinine Clear Calc Drug Dose 71.7 ml/min Estimated GFR () 72.6 Estimated GFR (Non- 62.6 BUN/Creatinine Ratio 15.8 (10-20) Calcium Level 9.3 mg/dl (8.5-10.1) Total Bilirubin 1.2 mg/dl (0.2-1) Aspartate Amino Transf (AST/SGOT) 17 U/L (15-37) Alanine Aminotransferase (ALT/SGPT) 22 U/L (12-78) Alkaline Phosphatase 91 U/L (45-117) Total Protein 8.0 gm/dl (6.4-8.2) Albumin 3.9 gm/dl (3.4-5.0) Globulin 4.1 gm/dl (2.5-4.0) Albumin/Globulin Ratio 1.0 (0.9-2) ED Course Prior records reviewed and summarized above. Triage Nursing notes reviewed. Additional history obtained from the family. The patient's history was concerning for swelling and pain in the leg. Differential diagnosis: Etiologies such as DVT, musculoskeletal, infection, joint effusion, trauma, lymphedema, idiopathic, CHF, as well as others were entertained.. Physical examination: The physical examination revealed no signs of infection. Neurovascularly intact. ER treatment provided: Wound care by nursing. Xeroform and nonadherent with kerlex was placed. Patient was advised that his DANICA hose on over this. On reassessment the patient felt better. Diagnostics interpreted by me: The labs revealed stable H&H. Imaging studies: Ultrasound was negative for DVT This appears to be consistent with lower leg edema most likely slightly worse as patient has not been wearing his DANICA hose and it is been a hot summer. Patient was advised to do the dressing changes as shown here in the ER and to follow-up as scheduled with podiatry this Monday for wound recheck. Patient had no ulcer present. He was well-appearing. No DVT. Stable H&H. He was advised to return to the ER immediately for chest pain, difficulty breathing, numbness, tingling, redness, worsening signs or symptoms or as needed. By the evaluation outlined above emergent etiologies such as DVT, septic joint, trauma , infection, CHF, as well as others were deemed relatively unlikely. The pt informed about the findings as listed above. All questions were answered and pleased with the treatment. Return instructions were outlined and the patient was discharged in stable condition. Case reviewed with my attending Referral: The patient was referred back to their primary care physician and podiatry for follow-up in 2 to 3 days for a recheck of the current condition. Medical Decision As above I attest that I have personally reviewed the patient's medications. Impression Primary Impression: Bilateral lower extremity edema Departure Information Dispostion Home / Self-Care Condition GOOD Forms WORK / SCHOOL INSTRUCTIONS, HOME CARE DOCUMENTATION FORM, IMPORTANT VISIT INFORMATION Patient Instructions My [facility] Additional Instructions Follow up with your ssn/ssbn assistant navigator for wound care to your legs. Daily dressing changes as shown in the ER to your left lower leg. Put your DANICA hose over the dressing. Recommend to wear your DANICA hose and continue your Lasix. Rest and drink plenty of fluids as tolerated. Continue current medications. Avoid strenuous activities and anything that worsens your pain. Resume normal activities once your symptoms resolve. Return to the ER immediately for abdominal pain, vomiting, fevers, chest pains , difficulty breathing, worsening of your condition, or as needed. Follow up with your primary physician in 2-3 days for a recheck of your current condition. Follow up with family medicine in 2-3 days.
--- NOTE | 2016-09-29 03:49 | EMERGENCY ROOM VISIT NOTE ---
ED Visit Note First contact with patient: 22:52 I have seen and examined this patient with [place] and generally agree with the treatment plan as discussed. Patient well-appearing at bedside, stated he had no further questions regarding his treatment was agreeable with the plan of care.
--- NOTE | 2016-09-29 06:49 | DIAGNOSTIC IMAGING REPORT ---
Venous Doppler left leg VENOUS DOPP LOWER EXT UNILAT CLINICAL HISTORY: EVALUATE FOR DVT pain. Edema. TECHNIQUE: Venous Doppler COMPARISON STUDY: 05/20/2014 FINDINGS: Negative study IMPRESSION: Negative study Electronically signed by: Delmer Woodward M.D. 09/29/2016 6:48 AM Dictated Date/Time: 09/29/2016 6:47 AM
[2016-10-21] MEDS ORDERED: LOSA50TA6 PO (11:26)
== END 2016-09-29 02:00 | disposition home or self-care (01) ==
LOC: C.EDB 21:00 → C.EDC 09-29 02:00
DX: R60.0 Localized edema (principal); E11.621 Type 2 diabetes mellitus with foot ulcer; L97.519 Non-pressure chronic ulcer of other part of right foot with unspecified severity; I48.91 Unspecified atrial fibrillation; I11.0 Hypertensive heart disease with heart failure; I50.20 Unspecified systolic (congestive) heart failure; I25.10 Atherosclerotic heart disease of native coronary artery without angina pectoris; E78.5 Hyperlipidemia, unspecified; G47.33 Obstructive sleep apnea (adult) (pediatric); Z79.82 Long term (current) use of aspirin; Z79.84 Long term (current) use of oral hypoglycemic drugs; Z79.01 Long term (current) use of anticoagulants; Z83.3 Family history of diabetes mellitus; Z82.49 Family history of ischemic heart disease and other diseases of the circulatory system

== ENCOUNTER 2016-10-03 09:54 | Emergency (ER) | payer OTHER, MEDICARE ==
[~2016-10-03] VITALS: Ht 172.7 cm; Wt 104.8 kg
[2016-10-03 10:01] VITALS: TEMP 36.7; Ht 172.7 cm; Wt 104.8 kg
[2016-10-03 10:44] VITALS: O2SAT 94
[2016-10-03 11:00] LABS: HEMATOCRIT 43.9 % (42-52); MEAN CELL VOLUME 92.4 fL (80-100); MEAN CORPUSCULAR HEMOGLOBIN 30.7 pg (25-34); MEAN CORPUSCULAR HGB CONC 33.3 g/dl (32-36); PLATELET COUNT 148 K/uL (130-400); RED BLOOD COUNT 4.75 M/uL (4.7-6.1); WHITE BLOOD COUNT 5.29 K/uL (4.8-10.8)
[2016-10-03 11:12] LABS: INR 2.6 (0.9-1.1); PARTIAL THROMBOPLASTIN RATIO 1.3; PROTHROMBIN TIME (PATIENT) 29.1 SECONDS (9.0-12.0)
[2016-10-03 11:17] LABS: CALCIUM 8.9 mg/dl (8.5-10.1); CREATININE 0.85 mg/dl (0.60-1.40); POTASSIUM 3.7 mmol/L (3.5-5.1)
--- NOTE | 2016-10-03 11:23 | EMERGENCY ROOM VISIT NOTE ---
History Report prepared by David: Preston Quiros Under the Supervision of: Dr. Josue Olivas M.D. First contact with patient: 10:17 Chief Complaint: FALL Stated Complaint: FELL History of Present Illness The patient is a 66 year old male who presents to the Emergency Room with complaints of constant left sided chest and left posterior neck pain s/p fall occurring 1.5 hours ago. He states that he was sitting in a chair with his feet propped up when he went to stand up. He states that his left leg went numb, and he fell onto the floor on his left side. The patient does not believe that he hit his head, and did not lose consciousness. He is on Coumadin for atrial fibrillation. He states that his leg no longer feels numb. The patient also complains of left elbow pain. He denies any vomiting, abnormal diarrhea, fevers , abdominal pain, or cough. His tetanus is up to date. He denies any pain in his chest prior to his fall. The patient was seen in the ED five days ago for lower extremity edema and had a negative ultrasound of his legs. Source of History: patient Onset: 1.5 hours ago Position: neck (left posterior), chest (left) Timing: constant Associated Symptoms: + numbness (left leg, resolved), No fevers, No cough, No vomiting, No abdominal pain, No diarrhea (abnormal) Note: The patient also complains of left elbow pain. Review of Systems See HPI for pertinent positives & negatives. A total of 10 systems reviewed and were otherwise negative. Past Medical & Surgical Medical Problems: (1) Atrial fibrillation, chronic (2) CAD (coronary artery disease) (3) Diabetes mellitus type II, controlled (4) Dyslipidemia (5) HTN (hypertension) (6) ANTOINETTE on CPAP (7) Systolic CHF Surgical Problems: (1) History of partial colectomy (2) Stented coronary artery Family History Diabetes mellitus FH: cancer FH: heart disease Hypertension Social History Smoking Status: Never Smoker Alcohol Use: none Drug Use: none Marital Status: Housing Status: lives with significant other Occupation Status: employed, other Current/Historical Medications Scheduled Aspirin (Aspirin 81 Low Dose), 81 MG PO QAM Atorvastatin (Lipitor), 40 MG PO QPM Buspirone Hcl (Buspirone Hcl), 7.5 MG PO BID Digoxin (Digoxin), 0.25 MG PO QAM Duloxetine HCl (Cymbalta), 30 MG PO QAM Fluoxetine (Prozac), 20 MG PO QAM Furosemide (Lasix), 40 MG PO BID Glimepiride (Glimepiride), 2 MG PO QAM Glimepiride (Amaryl), 4 MG PO QAM Losartan Potassium (Cozaar), 50 MG PO QAM Metformin HCl (Metformin HCl ER), 500 MG PO BID Metoprolol Succ (Toprol Xl) (Toprol-Xl ), 100 MG PO BID Potassium Chloride (Potassium Chloride ER), 20 MEQ PO QAM Warfarin Sodium (Warfarin Sodium), 5 MG PO MWF Warfarin Sodium (Warfarin Sodium), 2.5 MG PO 4XWK Scheduled PRN Clonazepam (Klonopin), 0.25 MG PO TID PRN for Anxiety Allergies Coded Allergies: Penicillins (Verified Allergy, Unknown, 09/28/16) Codeine (Verified Adverse Reaction, Unknown, NAUSEA, LIGHTHEADEDNESS, 09/28) Simvastatin (Verified Adverse Reaction, Unknown, makes him feel like he is high, 09/28/16) Physical Exam Vital Signs Date Time Temp Pulse Resp B/P (MAP) Pulse Ox O2 Delivery O2 Flow Rate FiO2 10/03/16 11:30 62 20 156/86 93 Room Air 10/03/16 10:44 94 Room Air 10/03/16 10:22 73 10/03/16 10:01 36.7 66 18 143/69 95 Room Air Physical Exam GENERAL: Patient is in no acute distress. HEENT: No acute trauma, normocephalic atraumatic, mucous membranes moist, no nasal congestion, no scleral icterus. NECK: No stridor, no adenopathy, no meningismus, trachea is midline. No posterior c-spine tenderness. Left posterior neck muscles tender to palpation. LUNGS: Clear to auscultation bilaterally, no wheeze, no rhonchi, breath sounds equal. HEART: Irregular rhythm with a normal rate. No murmurs. CHEST: Tender to the left anterior superior chest wall. ABDOMEN: Soft, nontender, bowel sounds positive, no hernias, no peritonitis. EXTREMITIES: Wraps on both lower extremities with moderate pedal edema bilaterally. Abrasion to the left posterior elbow without evidence for underlying fracture. NEUROLOGIC: Oriented x 3, no acute motor or sensory deficits, no focal weakness. SKIN: No rash, no jaundice, no diaphoresis. Medical Decision & Procedures ER Provider Diagnostic Interpretation: Radiology results as stated below per my review and radiologist interpretation: LEFT RIBS UNILATERAL WITH PA CHEST FINDINGS: The heart is markedly enlarged. The chronic silhouette appears globular. There is no pneumothorax. There are small bilateral pleural effusions. No left-sided rib fractures are visualized. IMPRESSION: 1. No left-sided rib fractures identified 2. No evidence of pneumothorax 3. Markedly cardiomegaly. Small pleural effusions. Electronically signed by: Moreno London M.D. HEAD WITHOUT CONTRAST (CT) FINDINGS: No acute intracranial hemorrhage, midline shift, abnormal extra-axial collections, hydrocephalus, intracranial mass or large area of acute territorial ischemia. There is mild cerebral atrophy with ex vacuo ventriculomegaly. Patchy areas of low-attenuation are again seen within the subcortical and periventricular white matter structures bilaterally, slightly progressed from comparison study dated 10/29/2012. No calvarial fracture. Mastoid air cells and middle ear cavities are clear. There is minimal disease within the right maxillary sinus. There is right deviation of the nasal septum. Soft tissues are within normal limits and the orbits are symmetric. IMPRESSION: 1. No acute intracranial hemorrhage or large area of territorial ischemia. 2. Mild cerebral atrophy with background chronic microvascular ischemic changes, mildly progressed from comparison study dated 10/29/2012. 3. Mild right maxillary sinus disease. The above report was generated using voice recognition software. It may contain grammatical, syntax or spelling errors. Electronically signed by: Jeevan Frazier M.D. CT OF THE CERVICAL SPINE FINDINGS: The visualized portions of the lung apices reveal no evidence of pneumothorax. There is a 3.6 mm dural based calcific/ossific density abutting the left petrous bone. The prevertebral soft tissues are normal. No fractures or traumatic subluxations are visualized. There are multilevel degenerative changes. There is 3 mm of retrolisthesis of C4 on C5, likely arthritic. IMPRESSION: 1. 3 mm of retrolisthesis of C4 on C5 likely arthritic. Multilevel degenerative change 2. No acute fractures or traumatic subluxations are visualized Electronically signed by: Moreno London M.D. Laboratory Results 10/03/16 10:44 10/03/16 10:44 Test 10/03/16 10:44 10/03/16 12:48 Red Blood Count 4.75 M/uL (4.7-6.1) Mean Corpuscular Volume 92.4 fL (80-100) Mean Corpuscular Hemoglobin 30.7 pg (25-34) Mean Corpuscular Hemoglobin Concent 33.3 g/dl (32-36) RDW Standard Deviation 50.5 fL (36.4-46.3) RDW Coefficient of Variation 14.7 % (11.5-14.5) Mean Platelet Volume 9.0 fL (7.4-10.4) Prothrombin Time 29.1 SECONDS (9.0-12.0) Prothromb Time International Ratio 2.6 (0.9-1.1) Activated Partial Thromboplast Time 34.8 SECONDS (21.0-31.0) Partial Thromboplastin Ratio 1.3 Anion Gap 8.0 mmol/L (3-11) Est Creatinine Clear Calc Drug Dose 100.3 ml/min Estimated GFR () 105.2 Estimated GFR (Non- 90.8 BUN/Creatinine Ratio 18.0 (10-20) Calcium Level 8.9 mg/dl (8.5-10.1) Total Bilirubin 1.3 mg/dl (0.2-1) Aspartate Amino Transf (AST/SGOT) 18 U/L (15-37) Alanine Aminotransferase (ALT/SGPT) 22 U/L (12-78) Alkaline Phosphatase 86 U/L (45-117) Total Protein 7.3 gm/dl (6.4-8.2) Albumin 3.6 gm/dl (3.4-5.0) Globulin 3.7 gm/dl (2.5-4.0) Albumin/Globulin Ratio 1.0 (0.9-2) Digoxin Level 1.1 ng/ml (0.8-2.0) Bedside Troponin I < 0.030 ng/ml (0-0.045) Laboratory results reviewed by me. ECG Indication: other (fall) Rate (beats per minute): 65 Rhythm: atrial fibrillation Findings: T-wave inversion (inferior and lateral leads), other (Old septal infarct) ED Course 1020: The patient was evaluated in room A3. A complete history and physical exam was performed. 1235: I updated the patient on his test results. 1310: Reevaluated the patient. Discussed results and discharge instructions: he verbalized understanding and agreement. The patient is ready for discharge. Medical Decision The patient is a 66 year old male who presents to the ED with complaints of left sided chest and left posterior neck pain s/p fall. Differential diagnoses considered include intracranial bleeding, c-spine fracture/strain, extremity fracture, stroke, electrolyte imbalance, rib fracture/contusion, IN, and anemia. Blood Pressure Screening: Patient was found to have a mildly elevated blood pressure and was referred to their primary doctor for recheck and further treatment. Medication Reconciliation: I attest that I have personally reviewed the patient' s current medication list. There is no leukocytosis or concerning anemia. No significant electrolyte abnormality, kidney failure or hepatitis. The patient's INR is therapeutic for someone using Coumadin. EKG shows A. fib, no acute ischemia. Cardiac enzyme testing 2 is not consistent with acute cardiac injury. Brain CT shows no acute bleed or mass effect. C-spine CT shows no acute fracture. Left rib series does not show fracture, pulmonary contusion or pneumothorax. Digoxin level was not toxic. The patient presents with injuries from a fall. He was concerned that his heart was causing the left-sided chest pain. Workup here from a cardiac standpoint is benign. I think the patient's chest pain is from the fall itself. The pain is somewhat reproducible. He does not appear to have suffered any significant injury to his extremities, head, neck, abdomen or back. The patient's left elbow abrasion was dressed. He was reassured, he did not want anything for pain. He is being discharged home with conservative measures. Impression Primary Impression: Left sided chest pain Additional Impressions: Abrasion of left elbow Fall Cervical strain Scribe Attestation The scribe's documentation has been prepared under my direction and personally reviewed by me in its entirety. I confirm that the note above accurately reflects all work, treatment, procedures, and medical decision making performed by me. Departure Information Dispostion Home / Self-Care Referrals Delmer Gracia M.D. (PCP) Forms HOME CARE DOCUMENTATION FORM, IMPORTANT VISIT INFORMATION Patient Instructions My [facility] Additional Instructions ice to the chest today may help heat starting tomorrow may help rest tylenol for pain watch for infection--redness, fever return if worsening see krissy roman for a recheck this week heart testing today was ok Problem Qualifiers
--- NOTE | 2016-10-03 11:28 | DIAGNOSTIC IMAGING REPORT ---
CT OF THE CERVICAL SPINE CLINICAL HISTORY: Neck pain status post trauma COMPARISON STUDY: No previous studies for comparison. CT DOSE: 970.86 mGycm TECHNIQUE: CT scan of the cervical spine was performed from the skull base to the thoracic inlet. Images are reviewed in the axial, sagittal, and coronal planes. IV contrast was not administered for this examination. FINDINGS: The visualized portions of the lung apices reveal no evidence of pneumothorax. There is a 3.6 mm dural based calcific/ossific density abutting the left petrous bone. The prevertebral soft tissues are normal. No fractures or traumatic subluxations are visualized. There are multilevel degenerative changes. There is 3 mm of retrolisthesis of C4 on C5, likely arthritic. IMPRESSION: 1. 3 mm of retrolisthesis of C4 on C5 likely arthritic. Multilevel degenerative change 2. No acute fractures or traumatic subluxations are visualized Electronically signed by: Moreno London M.D. 10/03/2016 11:27 AM Dictated Date/Time: 10/03/2016 11:24 AM
--- NOTE | 2016-10-03 11:30 | DIAGNOSTIC IMAGING REPORT ---
HEAD WITHOUT CONTRAST (CT) HISTORY: fall, coumadin TECHNIQUE: Multiple axial CT images of the head were obtained without contrast. CT DOSE: 1459.56 mGycm COMPARISON: Head CT 10/29/2012. FINDINGS: No acute intracranial hemorrhage, midline shift, abnormal extra-axial collections, hydrocephalus, intracranial mass or large area of acute territorial ischemia. There is mild cerebral atrophy with ex vacuo ventriculomegaly. Patchy areas of low-attenuation are again seen within the subcortical and periventricular white matter structures bilaterally, slightly progressed from comparison study dated 10/29/2012. No calvarial fracture. Mastoid air cells and middle ear cavities are clear. There is minimal disease within the right maxillary sinus. There is right deviation of the nasal septum. Soft tissues are within normal limits and the orbits are symmetric. IMPRESSION: 1. No acute intracranial hemorrhage or large area of territorial ischemia. 2. Mild cerebral atrophy with background chronic microvascular ischemic changes, mildly progressed from comparison study dated 10/29/2012. 3. Mild right maxillary sinus disease. The above report was generated using voice recognition software. It may contain grammatical, syntax or spelling errors. Electronically signed by: Jeevan Frazier M.D. 10/03/2016 11:29 AM Dictated Date/Time: 10/03/2016 11:26 AM
--- NOTE | 2016-10-03 12:04 | DIAGNOSTIC IMAGING REPORT ---
LEFT RIBS UNILATERAL WITH PA CHEST CLINICAL HISTORY: Left-sided chest pain status post trauma COMPARISON STUDY: Chest x-ray dated 07/31/2016 FINDINGS: The heart is markedly enlarged. The chronic silhouette appears globular. There is no pneumothorax. There are small bilateral pleural effusions. No left-sided rib fractures are visualized. IMPRESSION: 1. No left-sided rib fractures identified 2. No evidence of pneumothorax 3. Markedly cardiomegaly. Small pleural effusions. Electronically signed by: Moreno London M.D. 10/03/2016 12:03 PM Dictated Date/Time: 10/03/2016 12:01 PM
[2016-10-03 14:02] VITALS: BP 159/77; PULSE 66; O2SAT 93
[2016-10-21] MEDS ORDERED: LOSA50TA6 PO (11:26)
== END 2016-10-03 14:03 | disposition home or self-care (01) ==
LOC: C.EDB 09:55 → C.EDA 14:03
DX: R07.9 Chest pain, unspecified (principal); S50.312A Abrasion of left elbow, initial encounter; W19.XXXA Unspecified fall, initial encounter; S16.1XXA Strain of muscle, fascia and tendon at neck level, initial encounter; I48.2 Chronic atrial fibrillation; I25.10 Atherosclerotic heart disease of native coronary artery without angina pectoris; E11.9 Type 2 diabetes mellitus without complications; E78.5 Hyperlipidemia, unspecified; I10 Essential (primary) hypertension; G47.33 Obstructive sleep apnea (adult) (pediatric); I50.9 Heart failure, unspecified; Z83.3 Family history of diabetes mellitus; Z82.49 Family history of ischemic heart disease and other diseases of the circulatory system; Z79.82 Long term (current) use of aspirin; Z79.01 Long term (current) use of anticoagulants

== ENCOUNTER 2016-10-21 14:46 | Emergency (ER) | payer OTHER, MEDICARE ==
[~2016-10-21 14:46] MED LIST changes: -BUSP15TA70 PO; -LORA-741 PO; +LOSA50TA6 PO
[2016-10-21 14:49] VITALS: BP 162/85; TEMP 36.4; Ht 172.7 cm
--- NOTE | 2016-10-21 15:28 | EMERGENCY ROOM VISIT NOTE ---
ED Visit Note First contact with patient: 14:58 CHIEF COMPLAINT: Left ankle pain 2 hours HISTORY OF PRESENT ILLNESS: Patient is a 66-year-old white male who presents to the emergency department for evaluation of left foot and ankle pain. He has been followed by his hotel service supervisor, Dr. Orellana, for a healing medial left ankle diabetic ulcer. He has been appointment with her at 0 800 this morning, where she debated the wound and dressed it. Patient is on warfarin chronically for A. fib and CAD, and apparently there was fairly significant bleeding which was difficult to control. The patient had the area bandaged several times, and had to go back to the office later this afternoon as he bled through the bandage. The last dressing was placed around 1400 and he left the office about 30 minutes later. The bleeding has been controlled, however since the last dressing was placed roughly 1 hour ago, he has had excruciating, throbbing pain in the foot and ankle. He rates his discomfort an 8/10. He took 2 Tylenol without relief. He reports he feels like his toes are going numb. There has been no further bleeding through the bandage. Patient reports the wound is not infected, he is not on any antibiotics. There has been no new trauma. REVIEW OF SYSTEMS: Review of systems as per HPI. All other systems reviewed were negative. At least 6 systems reviewed.. PMH: Electronic medical records are reviewed and summarized as above/below. See Problem List. SOCIAL HISTORY: Patient living at home. Non-smoker, no alcohol or drug use. PHYSICAL EXAM: Vital Signs: Reviewed Nurse's notes. CONSTITUTIONAL: Patient is uncomfortable appearing, slightly anxious 66-year-old white male who is awake and alert and in moderate distress due to his stated complaint. EXTREMITIES: The patient has a dressing over his left ankle. It consists of an Darius wrap over a taped on bandage. Capillary refill is brisk. Sensation light touch is intact over the toes. The dressing was cut off without difficulty, and removed cautiously. The site in question on the medial ankle appears to have a Gelfoam light dressing over top of it, there is no active bleeding. Patient had immediate relief of his pain with removal of the dressing. EMERGENCY DEPARTMENT COURSE: The patient was seen and assessed as above. He has been followed by the hotel service supervisor for a healing diabetic ulcer on the left medial ankle. He is chronically anticoagulated on warfarin, and had fairly significant bleeding after the wound was debrided earlier today. Multiple pressor bandages were applied. The last bandage was placed about an hour ago. The patient has had complete relief of his pain when the bandage was removed. There is no active bleeding from the ulcer at this time. The patient's pain appears to be related to the bandage, I suspect that it was a bit too tight. He does not have any findings consistent with infection. I do not suspect nerve or vascular compromise. He does not have any findings consistent with compartment syndrome. The patient's wound was redressed with Xeroform, 4 x 4's , Serafin and an Darius wrap. He is scheduled to follow-up with the hotel service supervisor in 4 days. The patient declined analgesia in the emergency department. He rated his pain a 0/10 at discharge. Medication reconciliation: I attest that I have personally reviewed the patient' s current medication list. Blood pressure screening: Patient was found to have a slightly elevated blood pressure due to circumstances. I do not believe that the patient requires hypertension monitoring. Problem List Medical Problems: (1) Anxiety Status: Resolved (2) Anxiety reaction Status: Resolved (3) Atrial fibrillation, chronic Status: Chronic (4) Bilateral lower extremity edema Status: Chronic (5) CAD (coronary artery disease) Status: Chronic (6) Diabetes mellitus type II, controlled Status: Chronic (7) Dyslipidemia Status: Chronic (8) HTN (hypertension) Status: Chronic (9) ANTOINETTE on CPAP Status: Chronic (10) Systolic CHF Status: Chronic Surgical Problems: (1) History of partial colectomy Permanent Comment: [facility]/ ilieorectal anast/ multiple polyps 2008 Status: Resolved (2) Stented coronary artery Permanent Comment: stents x 4 to RCA and LAD 1997 Status: Resolved Current/Historical Medications Scheduled Aspirin (Aspirin 81 Low Dose), 81 MG PO QAM Atorvastatin (Lipitor), 40 MG PO QPM Buspirone Hcl (Buspirone Hcl), 7.5 MG PO BID Digoxin (Digoxin), 0.25 MG PO QAM Duloxetine HCl (Cymbalta), 30 MG PO QAM Fluoxetine (Prozac), 20 MG PO QAM Furosemide (Lasix), 40 MG PO BID Glimepiride (Glimepiride), 2 MG PO QAM Glimepiride (Amaryl), 4 MG PO QAM Losartan Potassium (Cozaar), 50 MG PO QAM Metformin HCl (Metformin HCl ER), 500 MG PO BID Metoprolol Succ (Toprol Xl) (Toprol-Xl ), 100 MG PO BID Potassium Chloride (Potassium Chloride ER), 20 MEQ PO QAM Warfarin Sodium (Warfarin Sodium), 5 MG PO MWF Warfarin Sodium (Warfarin Sodium), 2.5 MG PO 4XWK Scheduled PRN Clonazepam (Klonopin), 0.25 MG PO TID PRN for Anxiety Allergies Coded Allergies: Penicillins (Verified Allergy, Unknown, 09/28/16) Codeine (Verified Adverse Reaction, Unknown, NAUSEA, LIGHTHEADEDNESS, 09/28) Simvastatin (Verified Adverse Reaction, Unknown, makes him feel like he is high, 09/28/16) Vital Signs Date Time Temp Pulse Resp B/P (MAP) Pulse Ox O2 Delivery O2 Flow Rate FiO2 10/21/16 15:59 71 20 92 Room Air 10/21/16 14:49 36.4 69 20 162/85 91 Room Air Departure Information Impression Primary Impression: Foot pain, left Additional Impression: Change of dressing Referrals Delmer Gracia M.D. (PCP) Patient Instructions [facility] Additional Instructions Leave dressing in place until seen by your hotel service supervisor on Monday, may reinforce or change as needed. Use Tylenol if needed for discomfort. Ice and elevate for pain. Return to the ED as needed. Problem Qualifiers
[2016-10-21 15:59] VITALS: PULSE 71; O2SAT 92
[2016-10-21] MEDS ORDERED: FRS/40 PO (16:59)
[2016-10-21] MEDS ORDERED: GLIM4TAB PO (16:59)
[2016-10-21] MEDS ORDERED: POTA-65 PO (16:59)
[2016-10-21] MEDS ORDERED: GLCSR500 PO (16:59)
[2016-10-21] MEDS ORDERED: ASPI1CHW12 PO (16:59)
[2016-10-21] MEDS ORDERED: METO1TAB69 PO (16:59)
[2016-10-21] MEDS ORDERED: LNX25 PO (16:59)
[2016-10-21] MEDS ORDERED: ATOR-24 PO (19:06)
[2016-10-21] MEDS ORDERED: GLIM2TAB2 PO (19:06)
[2016-10-21] MEDS ORDERED: CLON0.5T3 PO (21:38)
[2016-10-21] MEDS ORDERED: BUSP1TAB46 PO (21:42)
[2016-10-21] MEDS ORDERED: CYM/30 PO (21:43)
[2016-10-21] MEDS ORDERED: FLUO20CA35 PO (22:07)
[2016-10-21] MEDS ORDERED: WARF-246 PO ×2 (23:00)
== END 2016-10-21 15:59 | disposition home or self-care (01) ==
LOC: C.EDB 14:48 → C.EDD 15:59
DX: M25.572 Pain in left ankle and joints of left foot (principal); I48.91 Unspecified atrial fibrillation; I25.10 Atherosclerotic heart disease of native coronary artery without angina pectoris; E11.9 Type 2 diabetes mellitus without complications; E78.5 Hyperlipidemia, unspecified; I10 Essential (primary) hypertension; F41.9 Anxiety disorder, unspecified; I50.22 Chronic systolic (congestive) heart failure; G47.33 Obstructive sleep apnea (adult) (pediatric); Z98.61 Coronary angioplasty status; Z90.49 Acquired absence of other specified parts of digestive tract; Z79.82 Long term (current) use of aspirin; Z79.4 Long term (current) use of insulin; Z79.01 Long term (current) use of anticoagulants; Z79.84 Long term (current) use of oral hypoglycemic drugs; Z88.0 Allergy status to penicillin; Z88.5 Allergy status to narcotic agent; Z88.8 Allergy status to other drugs, medicaments and biological substances

== ENCOUNTER 2016-12-02 12:41 | Emergency (ER) | payer OTHER, MEDICARE ==
[~2016-12-02] VITALS: Ht 172.7 cm; Wt 104.7 kg
[~2016-12-02 12:41] MED LIST changes: +ASPI1CHW12 PO; +ATOR-24 PO; +BUSP1TAB46 PO; +CLON0.5T3 PO; +CYM/30 PO; +FLUO20CA35 PO; +FRS/40 PO; +GLCSR500 PO; +GLIM2TAB2 PO; +GLIM4TAB PO; +LNX25 PO; +METO1TAB69 PO; +POTA-65 PO; +WARF-246 PO
[2016-12-02 12:44] VITALS: TEMP 36.5; Ht 172.7 cm; Wt 104.7 kg
--- NOTE | 2016-12-02 13:22 | DIAGNOSTIC IMAGING REPORT ---
CHEST ONE VIEW PORTABLE CLINICAL HISTORY: Disorientation. Confusion. Altered mental status. COMPARISON STUDY: 07/31/2016 FINDINGS: The cardiac silhouette is markedly enlarged. The cardiac silhouette has a globular orientation. There is no focal pulmonary consolidation. There is probable mild pulmonary venous hypertension. There are suspected small pleural effusions. IMPRESSION: 1. Markedly enlarged cardiac silhouette with suspected mild pulmonary venous hypertension 2. Small bilateral pleural effusions Electronically signed by: Moreno London M.D. 12/02/2016 1:21 PM Dictated Date/Time: 12/02/2016 1:20 PM
[2016-12-02 13:28] LABS: BASO % 0.2 %; BASO ABS # 0.01 K/uL (0-0.2); COMPLETE YES; EOS % 0.9 %; HEMATOCRIT 45.5 % (42-52); IG% 0.2 %; LYMPH % 12.6 %; LYMPH ABS # 0.81 K/uL (1.2-3.4); MEAN CORPUSCULAR HEMOGLOBIN 30.7 pg (25-34); MEAN CORPUSCULAR HGB CONC 32.3 g/dl (32-36); MEAN PLATELET VOLUME 9.8 fL (7.4-10.4); MONO % 12.1 %; PLATELET COUNT 211 K/uL (130-400); RED BLOOD COUNT 4.79 M/uL (4.7-6.1); WHITE BLOOD COUNT 6.45 K/uL (4.8-10.8)
[2016-12-02 13:42] LABS: PARTIAL THROMBOPLASTIN RATIO 1.4
[2016-12-02 13:47] LABS: INR 4.2 (0.9-1.1)
[2016-12-02 13:52] LABS: BUN/CREATININE RATIO 15.2 (10-20); CREATININE 1.2 mg/dl (0.60-1.40); MAGNESIUM 1.8 mg/dl (1.8-2.4); POTASSIUM 3.9 mmol/L (3.5-5.1)
[2016-12-02 14:00] LABS: CKMB/CK RATIO 2.5 (0-3.0); THYROID STIMULATING HORMONE 2.85 uIu/ml (0.300-4.500)
[2016-12-02] MEDS ORDERED: BACL20TA PO (14:06)
[2016-12-02 14:07] VITALS: O2SAT 95
[2016-12-02 15:16] LABS: URINE APPEARANCE CLEAR (CLEAR); URINE BILIRUBIN NEG (NEG); URINE COLOR YELLOW; URINE EPITHELIAL CELL AUTO >30 /lpf (0-5); URINE NITRITE NEG (NEG); URINE SPECIFIC GRAVITY 1.019 (1.000-1.030); UROBILINOGEN NEG (NEG); ZZUR CULT IF INDIC CLEAN CATCH NO
--- NOTE | 2016-12-02 15:21 | DIAGNOSTIC IMAGING REPORT ---
CT OF THE HEAD WITHOUT CONTRAST CLINICAL HISTORY: Altered mental status. Weakness. COMPARISON STUDY: MRI of the brain October 29, [address] October 03, 2016. CT DOSE: 729.78 mGycm TECHNIQUE: Helical axial images of the head were obtained without IV contrast. Automated exposure control was utilized for the study. A dose lowering technique was utilized adhering to the principles of ALARA. FINDINGS: No acute intracranial hemorrhage, midline shift or mass effect is present. Ventricular system is stable. Basilar cisterns are patent. There are no extra axial collections. White matter hypodensities suggest moderate small vessel disease. There are no findings to suggest acute dural sinus thrombosis or acute territorial infarct. The appearance of the brain is unchanged since prior exam. No calvarial fracture is identified. Visual portions of the sinuses and mastoid air cells are clear. IMPRESSION: No acute intracranial findings. Electronically signed by: Jefferson Hyatt M.D. 12/02/2016 3:20 PM Dictated Date/Time: 12/02/2016 3:17 PM
[2016-12-02 15:22] LABS: MANUAL MICROSCOPIC REQUIRED? NO; REVIEW REQ? NO
[2016-12-02 15:45] VITALS: BP 142/76; PULSE 79; O2SAT 95
--- NOTE | 2016-12-02 15:45 | EMERGENCY ROOM VISIT NOTE ---
History Report prepared by David: Devon Cooley Under the Supervision of: Dr. Maxime Osorio D.O. First contact with patient: 12:53 Chief Complaint: CONFUSION Stated Complaint: DISORIENTED/CONFUSED Nursing Triage Summary: relates that she was woke at 0400 and trying to turn the radio off and it wasn't on. She relates that he had his CPAP off and couldn't get it on. "He went to the bathroom and did what he needed to do and then he just sat there." History of Present Illness The patient is a 66 year old male who presents to the Emergency Room with complaints of constant confusion starting earlier this morning. The patient's states that the patient woke up this morning around 0400, and he tried to turn the radio off even though it was not on. Then he went to the bathroom and had a blank look. Additionally, the patient does not remember feeding his animals this morning or eating chili. The patient additionally states that he feels like his ears are popping, and this started 30-45 minutes ago. He sates that the popping sound is there when he moves his jaw. The patient denies any chest pain, shortness of breath, fever, cough, or headache. Source of History: patient, spouse/significant other Onset: earlier this morning Position: other (global) Quality: other (confusion) Timing: constant Associated Symptoms: No fevers, No headache, No cough, No chest pain, No SOB Review of Systems See HPI for pertinent positives & negatives. A total of 10 systems reviewed and were otherwise negative. Past Medical & Surgical Medical Problems: (1) Anxiety (2) Anxiety reaction (3) Atrial fibrillation, chronic (4) Bilateral lower extremity edema (5) CAD (coronary artery disease) (6) Diabetes mellitus type II, controlled (7) Dyslipidemia (8) HTN (hypertension) (9) ANTOINETTE on CPAP (10) Systolic CHF Surgical Problems: (1) History of partial colectomy (2) Stented coronary artery Family History Diabetes mellitus FH: cancer FH: heart disease Hypertension Social History Smoking Status: Never Smoker Alcohol Use: none Drug Use: none Marital Status: Housing Status: lives with significant other Occupation Status: employed, other Current/Historical Medications Scheduled Aspirin (Aspirin 81 Low Dose), 81 MG PO QAM Atorvastatin (Lipitor), 40 MG PO QPM Buspirone Hcl (Buspirone Hcl), 7.5 MG PO BID Digoxin (Digoxin), 0.25 MG PO QAM Duloxetine HCl (Cymbalta), 30 MG PO QAM Fluoxetine (Prozac), 20 MG PO QAM Furosemide (Lasix), 40 MG PO BID Glimepiride (Glimepiride), 2 MG PO QAM Glimepiride (Amaryl), 4 MG PO QAM Losartan Potassium (Cozaar), 50 MG PO QAM Metformin HCl (Metformin HCl ER), 500 MG PO BID Metoprolol Succ (Toprol Xl) (Toprol-Xl ), 100 MG PO BID Potassium Chloride (Potassium Chloride ER), 20 MEQ PO QAM Warfarin Sodium (Warfarin Sodium), 5 MG PO MWF Warfarin Sodium (Warfarin Sodium), 2.5 MG PO 4XWK Scheduled PRN Baclofen (Lioresal), 20 MG PO TID PRN for Pain Clonazepam (Klonopin), 0.25 MG PO TID PRN for Anxiety Allergies Coded Allergies: Penicillins (Verified Allergy, Unknown, 09/28/16) Codeine (Verified Adverse Reaction, Unknown, NAUSEA, LIGHTHEADEDNESS, 09/28) Simvastatin (Verified Adverse Reaction, Unknown, makes him feel like he is high, 09/28/16) Physical Exam Vital Signs Date Time Temp Pulse Resp B/P (MAP) Pulse Ox O2 Delivery O2 Flow Rate FiO2 12/02/16 15:45 79 18 142/76 95 Room Air 12/02/16 14:50 82 16 130/82 94 Nasal Cannula 1.0 12/02/16 14:07 95 Nasal Cannula 1.0 12/02/16 14:07 81 16 137/76 94 Nasal Cannula 1.0 12/02/16 13:39 78 12/02/16 12:44 36.5 79 20 128/73 99 Room Air Physical Exam VITAL SIGNS: were reviewed as above. GENERAL:Non-toxic in appearance. SKIN: Warm dry and pink. HEAD: Normocephalic and atraumatic. OROPHARYNX: Is clear and moist NECK: Supple without lymphadenopathy or meningismus. LUNGS: clear. HEART: Regular rate and rhythm. ABDOMEN: Soft and nontender. EXTREMITIES: Warm and well perfused. NEUROLOGICALLY: Awake alert and oriented without focal deficit. Cranial nerves 2 -12 are intact. There is no pronator drift. Cerebellar testing is within normal limits. There is no nystagmus. There is no facial droop. Speech is clear. Vision is grossly normal. MUSCULOSKELETAL: Good muscle tone. No evidence of trauma. Medical Decision & Procedures ER Provider Diagnostic Interpretation: Radiology results as stated below per my review and radiologist interpretation: CT OF THE HEAD WITHOUT CONTRAST CLINICAL HISTORY: Altered mental status. Weakness. COMPARISON STUDY: MRI of the brain October 29, [address] October 03, 2016. CT DOSE: 729.78 mGycm TECHNIQUE: Helical axial images of the head were obtained without IV contrast. Automated exposure control was utilized for the study. A dose lowering technique was utilized adhering to the principles of ALARA. FINDINGS: No acute intracranial hemorrhage, midline shift or mass effect is present. Ventricular system is stable. Basilar cisterns are patent. There are no extra axial collections. White matter hypodensities suggest moderate small vessel disease. There are no findings to suggest acute dural sinus thrombosis or acute territorial infarct. The appearance of the brain is unchanged since prior exam. No calvarial fracture is identified. Visual portions of the sinuses and mastoid air cells are clear. IMPRESSION: No acute intracranial findings. Electronically signed by: Jefferson Hyatt M.D. 12/02/2016 3:20 PM Dictated Date/Time: 12/02/2016 3:17 PM CHEST ONE VIEW PORTABLE CLINICAL HISTORY: Disorientation. Confusion. Altered mental status. COMPARISON STUDY: 07/31/2016 FINDINGS: The cardiac silhouette is markedly enlarged. The cardiac silhouette has a globular orientation. There is no focal pulmonary consolidation. There is probable mild pulmonary venous hypertension. There are suspected small pleural effusions. IMPRESSION: 1. Markedly enlarged cardiac silhouette with suspected mild pulmonary venous hypertension 2. Small bilateral pleural effusions Electronically signed by: Moreno London M.D. 12/02/2016 1:21 PM Dictated Date/Time: 12/02/2016 1:20 PM Laboratory Results 12/02/16 13:05 Red Blood Count 4.79, Mean Corpuscular Volume 95.0, Mean Corpuscular Hemoglobin 30.7, Mean Corpuscular Hemoglobin Concent 32.3, Mean Platelet Volume 9.8, Neutrophils (%) (Auto) 74.0, Lymphocytes (%) (Auto) 12.6, Monocytes (%) (Auto) 12.1, Eosinophils (%) (Auto) 0.9, Basophils (%) (Auto) 0.2, Neutrophils # (Auto ) 4.78, Lymphocytes # (Auto) 0.81, Monocytes # (Auto) 0.78, Eosinophils # (Auto ) 0.06, Basophils # (Auto) 0.01 12/02/16 13:05 Test 12/02/16 13:05 12/02/16 15:00 White Blood Count 6.45 K/uL (4.8-10.8) Red Blood Count 4.79 M/uL (4.7-6.1) Hemoglobin 14.7 g/dL (14.0-18.0) Hematocrit 45.5 % (42-52) Mean Corpuscular Volume 95.0 fL (80-100) Mean Corpuscular Hemoglobin 30.7 pg (25-34) Mean Corpuscular Hemoglobin Concent 32.3 g/dl (32-36) Platelet Count 211 K/uL (130-400) Mean Platelet Volume 9.8 fL (7.4-10.4) Neutrophils (%) (Auto) 74.0 % Lymphocytes (%) (Auto) 12.6 % Monocytes (%) (Auto) 12.1 % Eosinophils (%) (Auto) 0.9 % Basophils (%) (Auto) 0.2 % Neutrophils # (Auto) 4.78 K/uL (1.4-6.5) Lymphocytes # (Auto) 0.81 K/uL (1.2-3.4) Monocytes # (Auto) 0.78 K/uL (0.11-0.59) Eosinophils # (Auto) 0.06 K/uL (0-0.5) Basophils # (Auto) 0.01 K/uL (0-0.2) RDW Standard Deviation 55.6 fL (36.4-46.3) RDW Coefficient of Variation 16.1 % (11.5-14.5) Immature Granulocyte % (Auto) 0.2 % Immature Granulocyte # (Auto) 0.01 K/uL (0.00-0.02) Prothrombin Time 48.0 SECONDS (9.0-12.0) Prothromb Time International Ratio 4.2 (0.9-1.1) Activated Partial Thromboplast Time 36.8 SECONDS (21.0-31.0) Partial Thromboplastin Ratio 1.4 Anion Gap 5.0 mmol/L (3-11) Est Creatinine Clear Calc Drug Dose 71.0 ml/min Estimated GFR () 72.6 Estimated GFR (Non- 62.6 BUN/Creatinine Ratio 15.2 (10-20) Calcium Level 9.0 mg/dl (8.5-10.1) Magnesium Level 1.8 mg/dl (1.8-2.4) Total Bilirubin 1.2 mg/dl (0.2-1) Direct Bilirubin 0.3 mg/dl (0-0.2) Aspartate Amino Transf (AST/SGOT) 25 U/L (15-37) Alanine Aminotransferase (ALT/SGPT) 26 U/L (12-78) Alkaline Phosphatase 101 U/L (45-117) Total Creatine Kinase 89 U/L (39-308) Creatine Kinase MB 2.2 ng/ml (0.5-3.6) Creatine Kinase MB Ratio 2.5 (0-3.0) Troponin I 0.041 ng/ml (0-0.045) Total Protein 8.1 gm/dl (6.4-8.2) Albumin 4.0 gm/dl (3.4-5.0) Lipase 137 U/L (73-393) Thyroid Stimulating Hormone (TSH) 2.850 uIu/ml (0.300-4.500) Urine Color YELLOW Urine Appearance CLEAR (CLEAR) Urine pH 6.0 (4.5-7.5) Urine Specific [place] 1.019 (1.000-1.030) Urine Protein 2+ (NEG) Urine Glucose (UA) NEG (NEG) Urine Ketones TRACE (NEG) Urine Occult Blood NEG (NEG) Urine Nitrite NEG (NEG) Urine Bilirubin NEG (NEG) Urine Urobilinogen NEG (NEG) Urine Leukocyte Esterase NEG (NEG) Urine WBC (Auto) 1-5 /hpf (0-5) Urine RBC (Auto) 0-4 /hpf (0-4) Urine Hyaline Casts (Auto) 0 /lpf (0-5) Urine Epithelial Cells (Auto) >30 /lpf (0-5) Urine Bacteria (Auto) NEG (NEG) Laboratory results as stated above per my review. ECG Indication: other (confusion) Rate (beats per minute): 86 Rhythm: atrial fibrillation Findings: PVC, no ectopy, other (No injury) Comparison ECG Date: 10/03/16 Change: no significant change ED Course 1253: Previous medical records were reviewed. The patient was evaluated in room A12. A complete history and physical examination was performed. 1540: On reevaluation, the patient is doing well. I discussed the results and findings with the patient. He verbalized agreement of the treatment plan. He was discharged home. Medical Decision Differential includes acute coronary syndrome, myocardial infarction, CVA, TIA, anemia, infection, pneumonia, UTI, pyelonephritis, poor nutrition, dehydration, electrolyte disturbance,hypoglycemia. This is a 66-year-old male who presents to the ED with a chief complaint of confusion. The patient, according to the seems a little confused this morning. He went to an appointment to have his feet examined and did not remember going there. He does not remember some other events about this morning. He didn't remember going for a walk and eating eggs for breakfast. He knows and understands that he is currently in the emergency room. He knows his liver location. He denies any specific complaints other than a popping noise in his ears when he moves his jaws. The patient has a history of atrial fibrillation as well as diabetes. His physical exam and neurologic exam was normal. An EKG shows A. fib at a rate of 86 with occasional PVC. CBC is normal , INR is 4.2. He is on Coumadin. Complete metabolic panel was normal, TSH is normal, chest x-ray reveals cardiomegaly but no acute process. Urine did not show infection. CT scan of the head did not show any acute disease. The patient was told the results of the test. He is felt to be stable for discharge and outpatient follow-up. Medication Reconcilliation Current Medication List: was personally reviewed by me Blood Pressure Screening Patient's blood pressure: Elevated blood pressure Blood pressure disposition: Elevated BP felt to be situational Impression Primary Impression: Memory deficit Scribe Attestation The scribe's documentation has been prepared under my direction and personally reviewed by me in its entirety. I confirm that the note above accurately reflects all work, treatment, procedures, and medical decision making performed by me. Departure Information Dispostion Home / Self-Care Referrals Delmer Gracia M.D. (PCP) Forms HOME CARE DOCUMENTATION FORM, IMPORTANT VISIT INFORMATION, WORK / SCHOOL INSTRUCTIONS Patient Instructions My [facility] Additional Instructions Follow-up with your doctor for further care and evaluation in 1-2 days. Return to the emergency department for worsening or new symptoms or any concerns. You have been examined and treated today on an emergency basis only. This is not a substitute for, or an effort to provide, complete comprehensive medical care. It is impossible to recognize and treat all injuries or illnesses in a single emergency department visit. It is therefore important that you follow up closely with your doctor. Call as soon as possible for an appointment.
== END 2016-12-02 15:51 | disposition home or self-care (01) ==
LOC: C.EDB 12:42 → C.EDA 15:51
DX: R41.0 Disorientation, unspecified (principal); I48.91 Unspecified atrial fibrillation; I10 Essential (primary) hypertension; E11.9 Type 2 diabetes mellitus without complications; E78.5 Hyperlipidemia, unspecified; I25.10 Atherosclerotic heart disease of native coronary artery without angina pectoris; I50.20 Unspecified systolic (congestive) heart failure; G47.33 Obstructive sleep apnea (adult) (pediatric); Z79.82 Long term (current) use of aspirin; Z79.01 Long term (current) use of anticoagulants; Z79.84 Long term (current) use of oral hypoglycemic drugs; Z79.899 Other long term (current) drug therapy; Z98.61 Coronary angioplasty status; Z90.49 Acquired absence of other specified parts of digestive tract; Z88.0 Allergy status to penicillin; Z88.5 Allergy status to narcotic agent; Z88.8 Allergy status to other drugs, medicaments and biological substances; Z83.3 Family history of diabetes mellitus; Z80.9 Family history of malignant neoplasm, unspecified; Z82.49 Family history of ischemic heart disease and other diseases of the circulatory system

== ENCOUNTER → 2017-01-29 | Outpatient (CLI) | payer OTHER, MEDICARE ==
[~2017-01-29] MED LIST changes: +BACL20TA PO; -CYM/30 PO; -GLIM4TAB PO; +METO100T44 PO; -METO1TAB69 PO; +PRED-301 PO
--- NOTE | 2017-01-29 13:51 | DIAGNOSTIC IMAGING REPORT ---
CHEST 2 VIEWS ROUTINE HISTORY: 66 years-old Male COUGH acute cough COMPARISON: Chest radiograph 12/02/2016. TECHNIQUE: PA and lateral views of the chest FINDINGS: Marked cardiac globular enlargement of the heart is again seen with pulmonary vascular congestion. There is atherosclerosis of the aorta. No pneumothorax, focal airspace consolidation or overt pulmonary edema. Trace right pleural effusion. The bones of the chest are grossly intact. Degenerative changes involve the shoulders and spine. IMPRESSION: 1. Marked cardiac enlargement without overt pulmonary edema or acute cardiopulmonary process. 2. Trace right pleural effusion. The above report was generated using voice recognition software. It may contain grammatical, syntax or spelling errors. Electronically signed by: Jeevan Frazier M.D. 01/29/2017 1:50 PM Dictated Date/Time: 01/29/2017 1:47 PM
== END | disposition home or self-care (01) ==
LOC: C.RAD 13:25
PROVIDERS: ATTEND Physician Assistant Medical
DX: R05 Cough (principal)

== ENCOUNTER 2017-02-10 21:27 | Observation (INO) | payer OTHER, MEDICARE ==
[~2017-02-10] VITALS: Ht 172.7 cm; Wt 99.7 kg
--- NOTE | 2017-02-10 22:17 | EMERGENCY ROOM VISIT NOTE ---
History Report prepared by David: Lan Dillon Under the Supervision of: Dr. Boogie Llanes M.D. First contact with patient: 22:10 Chief Complaint: CHEST PAIN Stated Complaint: CANT BREATH Nursing Triage Summary: Patient has been sick coughing last few days. Today he came home from work and had increased SOB. Patient states he had pain between shoulder blades and mild chest pain on the right side of his chest. History of Present Illness The patient is a 66 year old diabetic male with a history of atrial fibrillation who presents to the Emergency Room with complaints of persistent chest pain that started a couple days ago. He says that he has had pains in his right shoulder, and intermittent left shoulder pain. The patient adds that he has had a productive cough with yellow mucous. He notes that it hurts to breathe , and he has been short of breath. He denies any nausea, vomiting, fevers, or worsened abdominal fullness. He says that this does not feel like his anxiety or panic disorder. The patient says that he is on Coumadin, and per the patient' s , the patient had a heart attack in 1996, and has a total of 4 stents placed. 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 He notes that he had a nuclear stress test a few months ago and it was okay. He notes no history of lung problems or blood clots. Source of History: patient, spouse/significant other Onset: A couple days ago Position: chest Quality: other (pain) Timing: other (persistent) Associated Symptoms: + SOB, No fevers, No nausea, No vomiting Note: Associated symptoms: Right shoulder pain, intermittent left shoulder pain. Denies worsened abdominal fullness. Review of Systems See HPI for pertinent positives & negatives. A total of 10 systems reviewed and were otherwise negative. Past Medical & Surgical Medical Problems: (1) Anxiety (2) Anxiety reaction (3) Atrial fibrillation, chronic (4) Bilateral lower extremity edema (5) CAD (coronary artery disease) (6) Diabetes mellitus type II, controlled (7) Dyslipidemia (8) HTN (hypertension) (9) ANTOINETTE on CPAP (10) Systolic CHF (11) URI (upper respiratory infection) Surgical Problems: (1) History of partial colectomy (2) Stented coronary artery Old medical records were reviewed. Nurse's notes were reviewed and I agree with. Chronic anticoagulation for chronic A. fib He did have a negative stress test in May of this year Family History Diabetes mellitus FH: cancer FH: heart disease Hypertension Social History Smoking Status: Never Smoker Alcohol Use: none Drug Use: none Marital Status: Housing Status: lives with significant other Occupation Status: retired Current/Historical Medications Scheduled Aspirin (Aspirin 81 Low Dose), 81 MG PO QAM Atorvastatin (Lipitor), 40 MG PO QPM Buspirone Hcl (Buspirone Hcl), 7.5 MG PO BID Digoxin (Digoxin), 0.25 MG PO QAM Duloxetine HCl (Cymbalta), 1 CAP PO DAILY Furosemide (Lasix), 40 MG PO BID Glimepiride (Glimepiride), 6 MG PO QAM Glimepiride (Glimepiride), 1 TAB PO DAILY Losartan Potassium (Cozaar), 100 MG PO DAILY Metformin HCl (Metformin HCl ER), 500 MG PO BID Metoprolol Succ (Toprol Xl) (Toprol-Xl ), 100 MG PO BID Potassium Chloride (Potassium Chloride ER), 20 MEQ PO QAM Warfarin Sodium (Warfarin Sodium), 5 MG PO MWF Warfarin Sodium (Warfarin Sodium), 2.5 MG PO 4XWK Scheduled PRN Clonazepam (Klonopin), 0.25 MG PO TID PRN for Anxiety Allergies Coded Allergies: Penicillins (Verified Allergy, Unknown, 02/10/17) Codeine (Verified Adverse Reaction, Unknown, NAUSEA, LIGHTHEADEDNESS, ) Simvastatin (Verified Adverse Reaction, Unknown, makes him feel like he is high, 02/10/17) Physical Exam Vital Signs Date Time Temp Pulse Resp B/P (MAP) Pulse Ox O2 Delivery O2 Flow Rate FiO2 02/10/17 23:45 66 20 126/89 97 Room Air 02/10/17 22:45 74 18 156/81 94 Room Air 02/10/17 22:23 Room Air 02/10/17 22:04 97 Room Air 02/10/17 21:58 81 02/10/17 21:41 95 Room Air 02/10/17 21:39 36.3 81 22 151/78 95 Room Air Physical Exam General: Chronically ill-appearing older male in no acute distress. HEENT: Normal cephalic atraumatic. Pupils are equal round and reactive to light. Extraocular movements are intact. Oropharynx is pink with moist mucous membranes. No swelling of the mouth lips or tongue. Neck: Supple with a midline trachea. No meningeal signs or stiffness, no JVD or bruits. No Stridor. Chest: Clear to auscultation bilaterally. No wheezes or rhonchi. No increased work of breathing. Heart: Irregularly irregular, not tachycardic. Abdomen: Soft nontender, nondistended without rebound guarding or rigidity. Extremities: In lower extremities, chronic edema with chronic skin changes, left greater than right. Spine/Back. Non tender to palpation. No CVA tenderness Skin: Good turgor without rashes. Neurologic exam: Cranial nerves two through 12 are intact. Motor and sensation are intact and symmetrical throughout. Medical Decision & Procedures ER Provider Diagnostic Interpretation: X-ray results as stated below per interpretation by me and the radiologist: CHEST ONE VIEW PORTABLE HISTORY: Short of breath. Atypical chest pain. COMPARISON: Chest 01/29/2017. FINDINGS: No pneumothorax. The heart remains enlarged. Trace bilateral pleural effusions. Patchy right basilar airspace opacity. Mild central pulmonary vascular congestion without overt edema. IMPRESSION: 1. Trace bilateral pleural effusions. 2. Patchy density within the right lung base. This may represent atelectasis or pneumonia. 3. Mild central pulmonary vascular congestion without overt edema and cardiomegaly persist. Electronically signed by: Jeramy Esquivel M.D. 02/10/2017 10:49 PM Dictated Date/Time: 02/10/2017 10:47 PM Laboratory Results 02/10/17 22:01 02/10/17 22:01 Test 02/10/17 22:01 02/10/17 22:05 Red Blood Count 4.41 M/uL (4.7-6.1) Mean Corpuscular Volume 95.7 fL (80-100) Mean Corpuscular Hemoglobin 30.8 pg (25-34) Mean Corpuscular Hemoglobin Concent 32.2 g/dl (32-36) RDW Standard Deviation 55.5 fL (36.4-46.3) RDW Coefficient of Variation 16.0 % (11.5-14.5) Mean Platelet Volume 9.4 fL (7.4-10.4) Nucleated RBC Absolute Count (auto) 0.03 K/uL (0-0) Nucleated Red Blood Cells % 0.3 % Prothrombin Time 64.6 SECONDS (9.0-12.0) Prothromb Time International Ratio 5.6 (0.9-1.1) Activated Partial Thromboplast Time 42.6 SECONDS (21.0-31.0) Partial Thromboplastin Ratio 1.6 Anion Gap 6.0 mmol/L (3-11) Est Creatinine Clear Calc Drug Dose 88.0 ml/min Estimated GFR () 93.9 Estimated GFR (Non- 81.0 BUN/Creatinine Ratio 15.6 (10-20) Calcium Level 8.8 mg/dl (8.5-10.1) Total Bilirubin 0.9 mg/dl (0.2-1) Aspartate Amino Transf (AST/SGOT) 18 U/L (15-37) Alanine Aminotransferase (ALT/SGPT) 24 U/L (12-78) Alkaline Phosphatase 99 U/L (45-117) Total Creatine Kinase 65 U/L (39-308) Creatine Kinase MB 1.4 ng/ml (0.5-3.6) Creatine Kinase MB Ratio 2.2 (0-3.0) Total Protein 7.7 gm/dl (6.4-8.2) Albumin 3.6 gm/dl (3.4-5.0) Globulin 4.1 gm/dl (2.5-4.0) Albumin/Globulin Ratio 0.9 (0.9-2) Digoxin Level 2.3 ng/ml (0.8-2.0) Bedside Troponin I < 0.030 ng/ml (0-0.045) Laboratory studies as stated above per my review. ECG Indication: chest pain Rate (beats per minute): 73 Rhythm: atrial fibrillation Findings: PVC (frequent), T-wave inversion (Lateral), other (poor baseline, poor R-wave progression) Comparison ECG Date: compared to Dec 02 2016, PVC's now present ED Course 2209: Past medical records reviewed. The patient was evaluated in room A3, and a complete history and physical examination were performed. 2315: Upon reevaluation, the patient is appearing more comfortable. I discussed the results and treatment plan with the patient. He verbalized agreement of the treatment plan. The patient will be evaluated for further management. 2348: I discussed the patient with Dr. Gunnar Ocampo engineering consultant - he will evaluate the patient for further treatment. Medical Decision Differentials include ACS, arrhythmia, pneumothorax, CHF, PE, musculoskeletal, anxiety. This patient comes in as described above. He has right sided chest pain and feels short of breath at times. He looks well on exam and at present he does have A. fib which is not a rapid but he has a fair amount of ectopy as well. He is stable vital signs. He has a little bit of a cough but is afebrile. IV access established and chest x-ray was obtained as well as EKG. Chest x-ray shows cardiomegaly, there may be some atelectasis or infiltrate in the right base. No pneumothorax. EKG shows rate controlled A. fib without ischemic changes but frequent ectopy. He has no white count or fever to suggest infection. He has no acute electrolyte or metabolic abnormalities. He was noted have an elevated digitoxin level at 2.3 and this could be causing some is ectopy he may have some mild dig toxicity. I do not think that this likely explains all of his symptoms. His INR was significant elevated in the 5 range. So he is supratherapeutic. I think this makes PE highly unlikely as a blood this is significantly thin. I do think he needs to be admitted for observation and further treatment and evaluation. I have consulted Dr. Enriquez and he was seen in the ER for these measures. Medication Reconcilliation Current Medication List: was personally reviewed by me Blood Pressure Screening Patient's blood pressure: Elevated blood pressure Blood pressure disposition: Elevated BP felt to be situational Consults Time Called: [phone] Consulting Physician: Dr. Gunnar Ocampo engineering consultant Returned Call: [phone] I discussed the patient with Dr. Gunnar Ocampo engineering consultant - he will evaluate the patient for further treatment. Impression Primary Impression: Right-sided chest pain Additional Impressions: Elevated INR Digoxin toxicity Palpitations Scribe Attestation The scribe's documentation has been prepared under my direction and personally reviewed by me in its entirety. I confirm that the note above accurately reflects all work, treatment, procedures, and medical decision making performed by me. Departure Information Dispostion Being Evaluated By Hospitalist Referrals Delmer Gracia M.D. (PCP) Patient Instructions My [facility] Problem Qualifiers
[2017-02-10 22:24] LABS: HEMATOCRIT 42.2 % (42-52); MEAN CELL VOLUME 95.7 fL (80-100); MEAN CORPUSCULAR HEMOGLOBIN 30.8 pg (25-34); MEAN CORPUSCULAR HGB CONC 32.2 g/dl (32-36); MEAN PLATELET VOLUME 9.4 fL (7.4-10.4); PLATELET COUNT 203 K/uL (130-400); RED BLOOD COUNT 4.41 M/uL (4.7-6.1)
[2017-02-10 22:43] LABS: BUN/CREATININE RATIO 15.6 (10-20); CALCIUM 8.8 mg/dl (8.5-10.1); CREATININE 0.97 mg/dl (0.60-1.40); PARTIAL THROMBOPLASTIN RATIO 1.6; POTASSIUM 4.6 mmol/L (3.5-5.1); PROTHROMBIN TIME (PATIENT) 64.6 SECONDS (9.0-12.0)
[2017-02-10 22:48] LABS: ALB/GLOB RATIO 0.9 (0.9-2); CKMB/CK RATIO 2.2 (0-3.0)
[2017-02-10] MEDS ORDERED: CYM/30 PO (22:50)
[2017-02-10] MEDS ORDERED: LOSA100T65 PO (22:50)
[2017-02-10] MEDS ORDERED: GLIM4TAB2 PO (22:50)
--- NOTE | 2017-02-10 22:51 | DIAGNOSTIC IMAGING REPORT ---
CHEST ONE VIEW PORTABLE HISTORY: Short of breath. Atypical chest pain. COMPARISON: Chest 01/29/2017. FINDINGS: No pneumothorax. The heart remains enlarged. Trace bilateral pleural effusions. Patchy right basilar airspace opacity. Mild central pulmonary vascular congestion without overt edema. IMPRESSION: 1. Trace bilateral pleural effusions. 2. Patchy density within the right lung base. This may represent atelectasis or pneumonia. 3. Mild central pulmonary vascular congestion without overt edema and cardiomegaly persist. Electronically signed by: Jeramy Esquivel M.D. 02/10/2017 10:49 PM Dictated Date/Time: 02/10/2017 10:47 PM
[2017-02-10 23:06] LABS: INR 5.6 (0.9-1.1)
[2017-02-11] VITALS (8 sets, daily range): BP systolic 139–182; BP diastolic 71–77; PULSE 69–92; TEMP 36.4–36.8; O2SAT 91–94; Ht 172.7 cm; Wt 99.7 kg
[2017-02-11] MEDS ORDERED: GLUCOSE 10 TABS/TUBE PO PRN (00:45)
[2017-02-11] MEDS ORDERED: MAGNESIUM HYDROXIDE SUSP 30 ML UDC PO PRN (00:45)
[2017-02-11] MEDS ORDERED: GLUCAGON FOR INJ 1 MG VIAL SQ PRN (00:45)
[2017-02-11] MEDS ORDERED: ACETAMINOPHEN 325 MG TAB PO PRN (00:45)
[2017-02-11] MEDS ORDERED: GLUCOSE 40% GEL 15 GM TUBE PO PRN (00:45)
[2017-02-11] MEDS ORDERED: ONDANSETRON INJ 2 MG/ML 2 ML VIAL IV PRN (00:45)
[2017-02-11] MEDS ORDERED: ALUMINUM/MAGNESIUM/SIMETH (MAALOX MAX) 30 ML UDC PO PRN (00:45)
[2017-02-11] MEDS ORDERED: CLONAZEPAM 0.5 MG TAB PO PRN (00:45)
[2017-02-11] MEDS ORDERED: DEXTROSE 50% 50 ML SYR IV PRN (00:45)
[2017-02-11] MEDS ORDERED: IV FLUIDS COMPLETED PRN (01:00)
[2017-02-11 03:02] LABS: INFLUENZA A PCR Neg for Influ A (NEG); INFLUENZA B PCR Neg for Influ B (NEG)
--- NOTE | 2017-02-11 03:10 | History and Physical ---
History & Physical Date & Time of Service: Feb 11, 2017 at 02:41 Chief Complaint: Right Sided Chest Pain, Uri Primary Care Physician: Delmer Gracia M.D. History of Present Illness Source: patient, family, clinic records, hospital records This is a 66 year old male with a PMH of paroxysmal atrial fibrillation on Coumadin and digoxin, CAD s/p stents, ischemic cardiomyopathy with EF around 35% , DM2, HLD, generalized anxiety and panic disorder presents with R sided shoulder pain/chest pressure. He states that for the past few days he has been having a cough, sputum production and worsening R shoulder pain at the same time. Denies fevers/chills. Denies nausea/vomiting/diarrhea. No palpitations. Past Medical/Surgical History Medical Problems: (1) Anxiety Status: Resolved (2) Anxiety reaction Status: Resolved (3) Atrial fibrillation, chronic Status: Chronic (4) Bilateral lower extremity edema Status: Chronic (5) CAD (coronary artery disease) Status: Chronic (6) Diabetes mellitus type II, controlled Status: Chronic (7) Dyslipidemia Status: Chronic (8) HTN (hypertension) Status: Chronic (9) ANTOINETTE on CPAP Status: Chronic (10) Systolic CHF Status: Chronic Surgical Problems: (1) History of partial colectomy Permanent Comment: [facility]/ ilieorectal anast/ multiple polyps 2008 Status: Resolved (2) Stented coronary artery Permanent Comment: stents x 4 to RCA and LAD 1997 Status: Resolved Family History Diabetes mellitus FH: cancer FH: heart disease Hypertension Social History Smoking Status: Never Smoker Drug Use: none Marital Status: Housing status: lives with family Occupational Status: retired Immunizations History of Influenza Vaccine: N/A History of Tetanus Vaccine?: Yes Tetanus Immunization Date: Mar 31, 2012 History of Pneumococcal: Yes History of Hepatitis B Vaccine: No Multi-Drug Resistant Organisms History of MDRO: No Allergies Coded Allergies: Penicillins (Verified Allergy, Unknown, 02/10/17) Codeine (Verified Adverse Reaction, Unknown, NAUSEA, LIGHTHEADEDNESS, ) Simvastatin (Verified Adverse Reaction, Unknown, makes him feel like he is high, 02/10/17) Home Medications Scheduled Aspirin (Aspirin 81 Low Dose), 81 MG PO QAM Atorvastatin (Lipitor), 40 MG PO QPM Buspirone Hcl (Buspirone Hcl), 7.5 MG PO BID Digoxin (Digoxin), 0.25 MG PO QAM Duloxetine HCl (Cymbalta), 1 CAP PO DAILY Furosemide (Lasix), 40 MG PO BID Glimepiride (Glimepiride), 6 MG PO QAM Glimepiride (Glimepiride), 1 TAB PO DAILY Losartan Potassium (Cozaar), 100 MG PO DAILY Metformin HCl (Metformin HCl ER), 500 MG PO BID Metoprolol Succ (Toprol Xl) (Toprol-Xl ), 100 MG PO BID Potassium Chloride (Potassium Chloride ER), 20 MEQ PO QAM Warfarin Sodium (Warfarin Sodium), 5 MG PO MWF Warfarin Sodium (Warfarin Sodium), 2.5 MG PO [id number] Scheduled PRN Clonazepam (Klonopin), 0.25 MG PO TID PRN for Anxiety Review of Systems Constitutional: No fever, No chills, No weight loss, No weakness, No fatigue Eyes: No discharge ENT: No unusual epistaxis, No sore throat, No trouble swallowing Respiratory: + cough, + sputum, + shortness of breath, No dyspnea on exertion, No dyspnea at rest, No hemoptysis Cardiovascular: + chest pain, No edema, No palpitations Abdomen: No pain, No nausea, No vomiting, No diarrhea, No constipation, No GI bleeding Musculoskeletal: No joint pain, No muscle pain Genitourinary - Male: No hematuria, No dysuria, No urinary frequency, No urinary urgency Neurologic: No weakness, No numbness/tingling, No vertigo, No balance problems Psychiatric: + anxiety, No depression symptoms Endocrine: No fatigue Hematologic / Lymphatic: No abnormal bleeding/bruising Integumentary: No rash Allergic / Immunologic: No environmental allergies, No seasonal allergies Physical Exam Vital Signs Date Time Temp Pulse Resp B/P (MAP) Pulse Ox O2 Delivery O2 Flow Rate FiO2 02/11/17 01:23 88 20 149/76 98 02/11/17 01:20 36.5 70 18 159/73 93 Room Air 02/11/17 01:20 Room Air 02/10/17 23:45 66 20 126/89 97 Room Air 02/10/17 22:45 74 18 156/81 94 Room Air 02/10/17 22:23 Room Air 02/10/17 22:04 97 Room Air 02/10/17 21:58 81 02/10/17 21:41 95 Room Air 02/10/17 21:39 36.3 81 22 151/78 95 Room Air General Appearance: no apparent distress Head: normocephalic, atraumatic Eyes: normal inspection ENT: hearing grossly normal Neck: supple Respiratory/Chest: chest non-tender, lungs clear, normal breath sounds, no respiratory distress, no accessory muscle use Cardiovascular: no murmur, + irregularly irregular Abdomen/GI: normal bowel sounds, non tender, soft Extremities/Musculoskelatal: normal inspection, no calf tenderness, normal capillary refill, no pedal edema, normal range of motion Neurologic/Psych: no bake molder II-XII nml as tested, no motor/sensory deficits, alert, normal mood/affect, oriented x 3 Skin: normal color Lymphatic: no adenopathy Diagnostics Laboratory Results Results Past 24 Hours Test 02/10/17 22:01 02/10/17 22:05 02/11/17 01:04 02/11/17 02:25 Range/Units White Blood Count 7.40 4.8-10.8 K/uL Red Blood Count 4.41 4.7-6.1 M/uL Hemoglobin 13.6 14.0-18.0 g/dL Hematocrit 42.2 42-52 % Mean Corpuscular Volume 95.7 80-100 fL Mean Corpuscular Hemoglobin 30.8 25-34 pg Mean Corpuscular Hemoglobin Concent 32.2 32-36 g/dl RDW Standard Deviation 55.5 36.4-46.3 fL RDW Coefficient of Variation 16.0 11.5-14.5 % Platelet Count 203 130-400 K/uL Mean Platelet Volume 9.4 7.4-10.4 fL Nucleated RBC Absolute Count (auto) 0.03 0-0 K/uL Nucleated Red Blood Cells % 0.3 % Prothrombin Time 64.6 9.0-12.0 SECONDS Prothromb Time International Ratio 5.6 0.9-1.1 Activated Partial Thromboplast Time 42.6 21.0-31.0 SECONDS Partial Thromboplastin Ratio 1.6 Sodium Level 137 136-145 mmol/L Potassium Level 4.6 3.5-5.1 mmol/L Chloride Level 101 98-107 mmol/L Carbon Dioxide Level 30 21-32 mmol/L Anion Gap 6.0 3-11 mmol/L Blood Urea Nitrogen 15 7-18 mg/dl Creatinine 0.97 0.60-1.40 mg/dl Est Creatinine Clear Calc Drug Dose 88.0 ml/min Estimated GFR () 93.9 Estimated GFR (Non- 81.0 BUN/Creatinine Ratio 15.6 10-20 Random Glucose 116 70-99 mg/dl Calcium Level 8.8 8.5-10.1 mg/dl Total Bilirubin 0.9 0.2-1 mg/dl Aspartate Amino Transf (AST/SGOT) 18 15-37 U/L Alanine Aminotransferase (ALT/SGPT) 24 12-78 U/L Alkaline Phosphatase 99 45-117 U/L Total Creatine Kinase 65 39-308 U/L Creatine Kinase MB 1.4 0.5-3.6 ng/ml Creatine Kinase MB Ratio 2.2 0-3.0 Total Protein 7.7 6.4-8.2 gm/dl Albumin 3.6 3.4-5.0 gm/dl Globulin 4.1 2.5-4.0 gm/dl Albumin/Globulin Ratio 0.9 0.9-2 Digoxin Level 2.3 0.8-2.0 ng/ml Bedside Troponin I < 0.030 0-0.045 ng/ml Influenza Type A Antigen Neg for Influ A NEG Influenza Type B Antigen Neg for Influ B NEG Diagnostic Radiology CHEST ONE VIEW PORTABLE HISTORY: Short of breath. Atypical chest pain. COMPARISON: Chest 01/29/2017. FINDINGS: No pneumothorax. The heart remains enlarged. Trace bilateral pleural effusions. Patchy right basilar airspace opacity. Mild central pulmonary vascular congestion without overt edema. IMPRESSION: 1. Trace bilateral pleural effusions. 2. Patchy density within the right lung base. This may represent atelectasis or pneumonia. 3. Mild central pulmonary vascular congestion without overt edema and cardiomegaly persist. Impression Assessment and Plan This is a 66 year old male with a PMH of paroxysmal atrial fibrillation on Coumadin and digoxin, CAD s/p stents, ischemic cardiomyopathy with EF around 35% , DM2, HLD, generalized anxiety and panic disorder presents with R sided shoulder pain/chest pressure. Chest Pain r/o ACS Hx. of CAD and stents patient likely has a viral URI anxiety is also playing a part in this check rapid flu trend cardiac enzymes echo ordered EKG in AM monitor in tele continue aspirin, statin, b-leticia Ischemic Cardiomyopathy Systolic CHF with EF around 30% no signs of fluid overload, currently euvolemic continue Lasix and Cozaar Paroxysmal A. Fib hold Coumadin, INR goal of 2-3; currently supratherapeutic hold Digoxin - dig level slightly elevated continue b-leticia DM2 hold oral agents insulin sliding scale Generalized Anxiety Panic Disorder continue current medications follows with psychiatry as outpatient DVT ppx Coumadin FULL CODE Advanced Directives Existing Living Will: No Existing Power of Ice Guard Tester: No VTE Prophylaxis VTE Risk Assessment Done? Y/N: Yes Risk Level: High Given or contraindicated: Warfarin (Coumadin)
[2017-02-11 07:00] LABS: MEAN CORPUSCULAR HEMOGLOBIN 30.8 pg (25-34); MEAN CORPUSCULAR HGB CONC 32.1 g/dl (32-36); MEAN PLATELET VOLUME 9.7 fL (7.4-10.4); PLATELET COUNT 191 K/uL (130-400); RED BLOOD COUNT 4.48 M/uL (4.7-6.1); WHITE BLOOD COUNT 7.29 K/uL (4.8-10.8)
[2017-02-11 07:13] LABS: PROTHROMBIN TIME (PATIENT) 62.4 SECONDS (9.0-12.0)
[2017-02-11 07:19] LABS: INR 5.4 (0.9-1.1)
[2017-02-11 07:33] LABS: BUN/CREATININE RATIO 17.1 (10-20); CALCIUM 9.3 mg/dl (8.5-10.1); CREATININE 0.79 mg/dl (0.60-1.40); POTASSIUM 4.4 mmol/L (3.5-5.1)
[2017-02-11 07:38] LABS: CKMB/CK RATIO 2.9 (0-3.0)
[2017-02-11] MEDS: DULOXETINE (CYMBALTA) 30 MG CAP PO SCH (08:22)
[2017-02-11] MEDS: BusPIRone 15 MG TAB PO SCH ×2 (08:22→20:36)
[2017-02-11] MEDS: ASPIRIN 81 MG ECTAB PO SCH (08:23)
[2017-02-11] MEDS: METOPROLOL SUCC 50MG EXT REL TAB PO SCH ×2 (08:23→20:37)
[2017-02-11] MEDS: LOSARTAN POTASSIUM 50 MG TAB PO SCH (08:23)
[2017-02-11] MEDS: FUROSEMIDE 40 MG TAB PO SCH ×2 (08:23→16:27)
[2017-02-11] MEDS: INSULIN ASPART 100 UNITS/ML 3 ML PEN SC SCH ×4 (09:01→20:23)
[2017-02-11] MEDS: LEVOFLOXACIN 750 MG TAB PO SCH (12:17)
--- NOTE | 2017-02-11 14:03 | Progress Note ---
Internal Med Progress Note Date of Service: Feb 11, 2017. Provider Documentation: SUBJECTIVE: Seen and examined at bedside Feels better today Less cough Pleuritic chest pain improving Denies SOB, nausea, dizziness,, abd pain Reports chronic diarrhea from Metformin Offers no other complaints OBJECTIVE: Vital Signs-as noted below Physical Exam: General Appearance:Moderately built and nourished, no apparent distress Head: normocephalic, Atraumatic Eyes: normal inspection, EOMI, PERRL Neck: supple, Trachea midline Respiratory/Chest: Normal breath sounds, CTA Cardiovascular: Irregularly Irregular, No murmur Abdomen/GI:Soft, Non tender, Bowel sounds present Extremities/Musculoskelatal:normal inspection, RLE wounds in bandage 2+ b/l edema, + chronic venous stasis changes Neurologic/Psych:AAOX3, grossly no focal neurological deficits Skin: normal color, warm Lab data as noted below. ASSESSMENT & PLAN: Patient is a 66 yr male with a PMH of paroxysmal atrial fibrillation on Coumadin and digoxin, CAD s/p stents, ischemic cardiomyopathy with EF around 35% , DM2, HLD, generalized anxiety and panic disorder presents with R sided shoulder pain/chest pressure, cough. CAP: CXR:Trace B/L effusion, Patchy density within the right lung base Continue Levaquin Clinically improving Flu screen negative Chest Pain r/o ACS Hx. of CAD and stents cardiac enzymes: negative EKG: Afib, non specific ST-T changes ECHO: pending continue aspirin, statin, b-leticia Ischemic Cardiomyopathy Systolic CHF with EF around 30% no signs of fluid overload, currently euvolemic continue Lasix and Cozaar Paroxysmal A. Fib INR Supratherapeutic :5.6>>5.4 Hold coumadin Digoxin levels normalized continue b-leticia, digoxin DM II hold oral agents insulin sliding scale Generalized Anxiety Panic Disorder continue current medications follows with psychiatry as outpatient DVT px Coumadin Code Status: Full Code PROCEDURES: CXR: 1. Trace bilateral pleural effusions. 2. Patchy density within the right lung base. This may represent atelectasis or pneumonia. 3. Mild central pulmonary vascular congestion without overt edema and cardiomegaly persist. Vital Signs: Date Time Temp Pulse Resp B/P (MAP) Pulse Ox O2 Delivery O2 Flow Rate FiO2 02/11/17 12:20 Room Air 02/11/17 11:03 36.4 70 20 162/71 (101) 91 Room Air 02/11/17 08:00 Room Air 02/11/17 08:00 93 Room Air 02/11/17 07:33 36.5 80 20 159/73 (101) 93 Room Air 02/11/17 06:31 36.4 73 143/74 (97) 92 Room Air 02/11/17 05:20 Room Air 02/11/17 01:23 88 20 149/76 98 02/11/17 01:20 36.5 70 18 159/73 93 Room Air 02/11/17 01:20 Room Air 02/10/17 23:45 66 20 126/89 97 Room Air 02/10/17 22:45 74 18 156/81 94 Room Air 02/10/17 22:23 Room Air 02/10/17 22:04 97 Room Air 02/10/17 21:58 81 02/10/17 21:41 95 Room Air 02/10/17 21:39 36.3 81 22 151/78 95 Room Air Lab Results: Results Past 24 Hours Test 02/10/17 22:01 02/10/17 22:05 02/11/17 01:04 02/11/17 06:28 Range/Units White Blood Count 7.40 7.29 4.8-10.8 K/uL Red Blood Count 4.41 4.48 4.7-6.1 M/uL Hemoglobin 13.6 13.8 14.0-18.0 g/dL Hematocrit 42.2 43.0 42-52 % Mean Corpuscular Volume 95.7 96.0 80-100 fL Mean Corpuscular Hemoglobin 30.8 30.8 25-34 pg Mean Corpuscular Hemoglobin Concent 32.2 32.1 32-36 g/dl RDW Standard Deviation 55.5 55.7 36.4-46.3 fL RDW Coefficient of Variation 16.0 16.0 11.5-14.5 % Platelet Count 203 191 130-400 K/uL Mean Platelet Volume 9.4 9.7 7.4-10.4 fL Nucleated RBC Absolute Count (auto) 0.03 0-0 K/uL Nucleated Red Blood Cells % 0.3 % Prothrombin Time 64.6 62.4 9.0-12.0 SECONDS Prothromb Time International Ratio 5.6 5.4 0.9-1.1 Activated Partial Thromboplast Time 42.6 21.0-31.0 SECONDS Partial Thromboplastin Ratio 1.6 Sodium Level 137 138 136-145 mmol/L Potassium Level 4.6 4.4 3.5-5.1 mmol/L Chloride Level 101 102 98-107 mmol/L Carbon Dioxide Level 30 30 21-32 mmol/L Anion Gap 6.0 6.0 3-11 mmol/L Blood Urea Nitrogen 15 14 7-18 mg/dl Creatinine 0.97 0.79 0.60-1.40 mg/dl Est Creatinine Clear Calc Drug Dose 88.0 107.2 ml/min Estimated GFR () 93.9 108.5 Estimated GFR (Non- 81.0 93.6 BUN/Creatinine Ratio 15.6 17.1 10-20 Random Glucose 116 127 70-99 mg/dl Calcium Level 8.8 9.3 8.5-10.1 mg/dl Total Bilirubin 0.9 0.2-1 mg/dl Aspartate Amino Transf (AST/SGOT) 18 15-37 U/L Alanine Aminotransferase (ALT/SGPT) 24 12-78 U/L Alkaline Phosphatase 99 45-117 U/L Total Creatine Kinase 65 52 39-308 U/L Creatine Kinase MB 1.4 1.5 0.5-3.6 ng/ml Creatine Kinase MB Ratio 2.2 2.9 0-3.0 Total Protein 7.7 6.4-8.2 gm/dl Albumin 3.6 3.4-5.0 gm/dl Globulin 4.1 2.5-4.0 gm/dl Albumin/Globulin Ratio 0.9 0.9-2 Digoxin Level 2.3 2.0 0.8-2.0 ng/ml Bedside Troponin I < 0.030 0-0.045 ng/ml Influenza Type A (RT-PCR) Neg for Influ A NEG Influenza Type A Antigen Neg for Influ A NEG Influenza Type B Antigen Neg for Influ B NEG Influenza Type B (RT-PCR) Neg for Influ B NEG Troponin I 0.037 0-0.045 ng/ml Hepatitis C Antibody Screen NEG NEG Test 02/11/17 07:31 02/11/17 11:07 Range/Units Bedside Glucose 128 150 70-99 mg/dl
--- NOTE | 2017-02-11 15:07 | ECHOCARDIOGRAM REPORT ---
*NOTICE TO RECEIVING [employer]Y This information is strictly Confidential and protected under [place] law. [place] law prohibits you from making any further disclosure of this information unless further disclosure is expressly permitted by the written consent of the person to whom it pertains or is authorized by law. A general authorization for the release of medical or other information is not sufficient for this purpose. Hospital accepts no responsibility if the information is made available to any other person, INCLUDING THE PATIENT. Interpretation Summary * Name: EUSEBIA HOWE JR Study Date: 02/11/2017 06:50 AM BP: 149/76 mmHg * Patient Location: .2T\S\S244\S\1 HR: 88 * : 1950 (M/d/yyyy) Gender: Male Height: 68 in * Age: 66 yrs Ethnicity: [place] Weight: 231 lb * Ordering Physician: Virgilio Maher * Referring Physician: Self, Referred * Performed By: Dylan Morales RDCS * * Reason For Study: Chest pain * BSA: 2.2 m2 * -- Conclusions -- * 1. Normal LV size, mild concentric LVH. * 2. Severe LV dysfunction. LVEF 25-30%. LAD distribution wall motion abnormality (see regino for details). * 3. Normal RV size with moderate RV dysfunction. * 4. Severe biatrial enlargement. * 5. Diastolic dysfunction. * 6. Moderate aortic regurgitation. * 7. Moderate pulmonic regurgitation. * 8. Moderate mitral regurgiation. * 9. Mild to moderate tricuspid regurgitation. * 10. Severe pulmonary hypertension. Est PASP >90 mmHg. Dilated IVC. Est RA 15 mmHg. * 11. Small to moderate pericardial effusion without tamponade physiology. * 12. Compared with prior study: LV function unchanged. PH has progressed. RV function now worse. Procedure Details * A complete two-dimensional transthoracic echocardiogram was performed (2D, M-mode, Doppler and color flow Doppler). * The study was technically adequate. Left Ventricle * The left ventricle is grossly normal size. * There is mild concentric left ventricular hypertrophy. * Ejection Fraction = 25-30%. * LAD distribution wall motion abnormality. Right Ventricle * The right ventricle is grossly normal size. * The right ventricular systolic function is moderately reduced. Atria * The left atrium is severely dilated. * The right atrium is severely dilated. * No ASD detected; PFO is not assessed. Mitral Valve * The mitral valve is grossly normal. * There is no mitral valve stenosis. * There is moderate mitral regurgitation. Tricuspid Valve * The tricuspid valve is not well visualized, but is grossly normal. * There is mild to moderate tricuspid regurgitation. Aortic Valve * The aortic valve opens well. * The aortic valve is trileaflet. * No hemodynamically significant valvular aortic stenosis. * Moderate aortic regurgitation. Pulmonic Valve * The pulmonary valve is inadequately visualized, but the Doppler data is adequate for interpretation. * Pulmonic stenosis is absent. * Moderate pulmonic valvular regurgitation. Great Vessels * The aortic root and proximal ascending aorta are normal sized. Pericardium/Pleural * Small to moderate size pericardial effusion. No signs of tamponade. Great Vessels * Dilated inferior vena cava with reduced collapsability with sniff indicates an elevated right atrial pressure of 15 mmHg Left Ventricular Diastolic Function * Diastolic dysfunction MMode 2D Measurements and Calculations IVSd 1.4 cm IVSs 1.8 cm LVIDd 5.6 cm LVIDs 4.5 cm LVPWd 1.4 cm LVPWs 1.6 cm IVS/LVPW 1.1 FS 20.7 % EDV(Teich) 154.9 ml ESV(Teich) 90.5 ml EF(Teich) 41.6 % EDV(cubed) 177.5 ml ESV(cubed) 88.6 ml EF(cubed) 50.1 % % IVS thick 27.7 % % LVPW thick 18.1 % LV mass(C)d 351.3 grams LV mass(C)dI 161.7 grams/m\S\2 LV mass(C)s 339.5 grams LV mass(C)sI 156.2 grams/m\S\2 SV(Teich) 64.4 ml SI(Teich) 29.7 ml/m\S\2 SV(cubed) 88.8 ml SI(cubed) 40.9 ml/m\S\2 EPSS 1.6 cm Ao root diam 3.7 cm Ao root area 10.5 cm\S\2 ACS 1.7 cm LA dimension 5.9 cm asc Aorta Diam 3.6 cm LA/Ao 1.6 LVOT diam 2.1 cm LVOT area 3.5 cm\S\2 LVAd ap4 36.2 cm\S\2 LVLd ap4 8.9 cm EDV(MOD-sp4) 118.8 ml EDV(sp4-el) 124.3 ml LVAs ap4 29.2 cm\S\2 LVLs ap4 8.8 cm ESV(MOD-sp4) 79.4 ml ESV(sp4-el) 82.2 ml EF(MOD-sp4) 33.2 % EF(sp4-el) 33.8 % LVAd ap2 37.9 cm\S\2 LVLd ap2 9.1 cm EDV(MOD-sp2) 129.0 ml EDV(sp2-el) 133.6 ml LVAs ap2 32.3 cm\S\2 LVLs ap2 8.9 cm ESV(MOD-sp2) 94.3 ml ESV(sp2-el) 99.1 ml EF(MOD-sp2) 26.9 % EF(sp2-el) 25.8 % LVLd %diff 1.7 % EDV(MOD-bp) 124.5 ml LVLs %diff 1.6 % ESV(MOD-bp) 86.7 ml EF(MOD-bp) 30.3 % SV(MOD-sp4) 39.5 ml SI(MOD-sp4) 18.2 ml/m\S\2 SV(MOD-sp2) 34.7 ml SI(MOD-sp2) 16.0 ml/m\S\2 SV(MOD-bp) 37.8 ml SI(MOD-bp) 17.4 ml/m\S\2 SV(sp4-el) 42.0 ml SI(sp4-el) 19.3 ml/m\S\2 SV(sp2-el) 34.5 ml SI(sp2-el) 15.9 ml/m\S\2 Doppler Measurements and Calculations MV E max anna marie 129.9 cm/sec MV dec time 0.12 sec Ao V2 max 117.5 cm/sec Ao max PG 5.5 mmHg Ao max PG (full) 2.2 mmHg SIMÓN(V,A) 2.7 cm\S\2 SIMÓN(V,D) 2.7 cm\S\2 AI max anna marie 446.9 cm/sec AI max PG 79.9 mmHg AI dec slope 285.9 cm/sec\S\2 AI P1/2t 457.8 msec LV V1 max PG 3.3 mmHg LV V1 max 90.5 cm/sec MR max anna marie 448.6 cm/sec MR max PG 80.5 mmHg PA V2 max 111.7 cm/sec PA max PG 5.0 mmHg PA acc slope 808.8 cm/sec\S\2 PA acc time 0.08 sec PI end-d anna marie 199.2 cm/sec TR max anna marie 471.1 cm/sec PA pr(Accel) 41.5 mmHg
[2017-02-11 15:16] LABS: CKMB/CK RATIO 2.7 (0-3.0)
[2017-02-11] MEDS ORDERED: ATORVASTATIN 40 MG TAB PO SCH (21:00)
[2017-02-12 03:10] VITALS: BP 134/68; PULSE 60; TEMP 37; O2SAT 95
[2017-02-12 06:55] LABS: HEMATOCRIT 43.8 % (42-52); MEAN CELL VOLUME 95.2 fL (80-100); MEAN CORPUSCULAR HEMOGLOBIN 31.1 pg (25-34); MEAN CORPUSCULAR HGB CONC 32.6 g/dl (32-36); MEAN PLATELET VOLUME 9.6 fL (7.4-10.4); PLATELET COUNT 201 K/uL (130-400); WHITE BLOOD COUNT 6.84 K/uL (4.8-10.8)
[2017-02-12 07:00] LABS: INR 3.3 (0.9-1.1); PROTHROMBIN TIME (PATIENT) 36.8 SECONDS (9.0-12.0)
[2017-02-12 07:24] LABS: CREATININE 0.95 mg/dl (0.60-1.40)
[2017-02-12 07:25] LABS: BUN/CREATININE RATIO 18.7 (10-20); CALCIUM 8.9 mg/dl (8.5-10.1); MAGNESIUM 1.8 mg/dl (1.8-2.4); POTASSIUM 3.7 mmol/L (3.5-5.1)
[2017-02-12] MEDS: ASPIRIN 81 MG ECTAB PO SCH (08:06)
[2017-02-12] MEDS: LOSARTAN POTASSIUM 50 MG TAB PO SCH (08:07)
[2017-02-12] MEDS: DULOXETINE (CYMBALTA) 30 MG CAP PO SCH (08:07)
[2017-02-12] MEDS: FUROSEMIDE 40 MG TAB PO SCH (08:07)
[2017-02-12] MEDS: METOPROLOL SUCC 50MG EXT REL TAB PO SCH (08:07)
[2017-02-12] MEDS: BusPIRone 15 MG TAB PO SCH (08:08)
[2017-02-12] MEDS: INSULIN ASPART 100 UNITS/ML 3 ML PEN SC SCH (08:15)
[2017-02-12 09:04] VITALS: BP 121/63; PULSE 53; TEMP 36.5; O2SAT 94
--- NOTE | 2017-02-12 10:29 | Progress Note ---
Internal Med Progress Note Date of Service: Feb 12, 2017. Provider Documentation: SUBJECTIVE: Seen and examined at bedside Doing well today States chest pain, cough has resolved Denies SOB, nausea, dizziness,, abd pain Reports chronic diarrhea from Metformin Family at bedside Offers no other complaints OBJECTIVE: Vital Signs-as noted below Physical Exam: General Appearance:Moderately built and nourished, no apparent distress Head: normocephalic, Atraumatic Eyes: normal inspection, EOMI, PERRL Neck: supple, Trachea midline Respiratory/Chest: Normal breath sounds, CTA Cardiovascular: Irregularly Irregular, No murmur Abdomen/GI:Soft, Non tender, Bowel sounds present Extremities/Musculoskelatal:normal inspection, RLE wounds in bandage 2+ b/l edema, + chronic venous stasis changes Neurologic/Psych:AAOX3, grossly no focal neurological deficits Skin: normal color, warm Lab data as noted below. ASSESSMENT & PLAN: Patient is a 66 yr male with a PMH of paroxysmal atrial fibrillation on Coumadin and digoxin, CAD s/p stents, ischemic cardiomyopathy with EF around 35% , DM2, HLD, generalized anxiety and panic disorder presents with R sided shoulder pain/chest pressure, cough. CAP: CXR:Trace B/L effusion, Patchy density within the right lung base Continue Levaquin Clinically improved Flu screen negative Chest Pain r/o ACS Hx. of CAD and stents cardiac enzymes: negative EKG: Afib, non specific ST-T changes ECHO: As below continue aspirin, statin, b-leticia Discussed with regarding wall motion abnormality (Not new per cardiology) Since chest pain resolved, No stress test for now Needs follow up cardiology as outpatient Ischemic Cardiomyopathy Systolic CHF with EF around 30% no signs of fluid overload, currently euvolemic continue Lasix and Cozaar Paroxysmal A. Fib INR Supratherapeutic :5.6>>5.4>>>3.3 Hold coumadin Digoxin levels normalized continue b-leticia, digoxin DM II hold oral agents insulin sliding scale Generalized Anxiety Panic Disorder continue current medications follows with psychiatry as outpatient DVT px Coumadin Code Status: Full Code PROCEDURES: CXR: 1. Trace bilateral pleural effusions. 2. Patchy density within the right lung base. This may represent atelectasis or pneumonia. 3. Mild central pulmonary vascular congestion without overt edema and cardiomegaly persist. ECHO: 1. Normal LV size, mild concentric LVH. * 2. Severe LV dysfunction. LVEF 25-30%. LAD distribution wall motion abnormality (see regino for details). * 3. Normal RV size with moderate RV dysfunction. * 4. Severe biatrial enlargement. * 5. Diastolic dysfunction. * 6. Moderate aortic regurgitation. * 7. Moderate pulmonic regurgitation. * 8. Moderate mitral regurgiation. * 9. Mild to moderate tricuspid regurgitation. * 10. Severe pulmonary hypertension. Est PASP >90 mmHg. Dilated IVC. Est RA 15 mmHg. * 11. Small to moderate pericardial effusion without tamponade physiology. * 12. Compared with prior study: LV function unchanged. PH has progressed. RV function now worse. Vital Signs: Date Time Temp Pulse Resp B/P (MAP) Pulse Ox O2 Delivery O2 Flow Rate FiO2 02/12/17 09:04 36.5 53 20 121/63 (82) 94 Room Air 02/12/17 08:00 Room Air 02/12/17 04:00 Room Air 02/12/17 03:10 37.0 60 18 134/68 (90) 95 Room Air 02/11/17 23:35 36.4 79 18 139/77 (97) 92 02/11/17 23:24 Room Air 02/11/17 20:27 36.6 69 20 182/72 (108) 94 Room Air 02/11/17 20:21 Room Air 02/11/17 16:00 Room Air 02/11/17 15:53 36.8 92 18 148/73 (98) 92 Room Air 02/11/17 12:20 Room Air 02/11/17 11:03 36.4 70 20 162/71 (101) 91 Room Air Lab Results: Results Past 24 Hours Test 02/11/17 11:07 02/11/17 14:28 02/11/17 15:38 02/11/17 19:43 Range/Units Bedside Glucose 150 88 138 70-99 mg/dl Total Creatine Kinase 52 39-308 U/L Creatine Kinase MB 1.4 0.5-3.6 ng/ml Creatine Kinase MB Ratio 2.7 0-3.0 Troponin I 0.039 0-0.045 ng/ml Test 02/12/17 06:30 02/12/17 07:08 Range/Units White Blood Count 6.84 4.8-10.8 K/uL Red Blood Count 4.60 4.7-6.1 M/uL Hemoglobin 14.3 14.0-18.0 g/dL Hematocrit 43.8 42-52 % Mean Corpuscular Volume 95.2 80-100 fL Mean Corpuscular Hemoglobin 31.1 25-34 pg Mean Corpuscular Hemoglobin Concent 32.6 32-36 g/dl RDW Standard Deviation 55.4 36.4-46.3 fL RDW Coefficient of Variation 16.1 11.5-14.5 % Platelet Count 201 130-400 K/uL Mean Platelet Volume 9.6 7.4-10.4 fL Nucleated RBC Absolute Count (auto) 0.02 0-0 K/uL Nucleated Red Blood Cells % 0.3 % Prothrombin Time 36.8 9.0-12.0 SECONDS Prothromb Time International Ratio 3.3 0.9-1.1 Sodium Level 133 136-145 mmol/L Potassium Level 3.7 3.5-5.1 mmol/L Chloride Level 95 98-107 mmol/L Carbon Dioxide Level 32 21-32 mmol/L Anion Gap 6.0 3-11 mmol/L Blood Urea Nitrogen 18 7-18 mg/dl Creatinine 0.95 0.60-1.40 mg/dl Est Creatinine Clear Calc Drug Dose 87.5 ml/min Estimated GFR () 96.3 Estimated GFR (Non- 83.1 BUN/Creatinine Ratio 18.7 10-20 Random Glucose 216 70-99 mg/dl Calcium Level 8.9 8.5-10.1 mg/dl Magnesium Level 1.8 1.8-2.4 mg/dl Bedside Glucose 231 70-99 mg/dl
[2017-02-12] MEDS ORDERED: LVQ750 PO (10:32)
--- NOTE | 2017-02-12 10:38 | Discharge Summary ---
Discharge Summary Date of Service Feb 12, 2017. Discharge Summary Admission Date: Feb 11, 2017 at 00:43 Discharge Date: Feb 12, 2017 Discharge Disposition: Home Principal Diagnosis: Pneumonia, Chest pain Procedures: CXR: 1. Trace bilateral pleural effusions. 2. Patchy density within the right lung base. This may represent atelectasis or pneumonia. 3. Mild central pulmonary vascular congestion without overt edema and cardiomegaly persist. ECHO: * 1. Normal LV size, mild concentric LVH. * 2. Severe LV dysfunction. LVEF 25-30%. LAD distribution wall motion abnormality (see [email or web address] for details). * 3. Normal RV size with moderate RV dysfunction. * 4. Severe biatrial enlargement. * 5. Diastolic dysfunction. * 6. Moderate aortic regurgitation. * 7. Moderate pulmonic regurgitation. * 8. Moderate mitral regurgiation. * 9. Mild to moderate tricuspid regurgitation. * 10. Severe pulmonary hypertension. Est PASP >90 mmHg. Dilated IVC. Est RA 15 mmHg. * 11. Small to moderate pericardial effusion without tamponade physiology. * 12. Compared with prior study: LV function unchanged. PH has progressed. RV function now worse. Consultations: None Pending Studies/Follow-Up: Follow up with your Primary care physician on Feb 17, 2017 at 2:00pm Follow up with your Compressor Repairer in 2 weeks as advised You may need stress test if your chest pain reoccurs Complete the antibiotic course as prescribed Get PT/INR checked tomorrow (02/13/17) follow up with your physician for further Coumadin dosage Do not take your Coumadin today as your INR is 3.3 today Seek immediate medical attention if your symptoms reoccur or worsen Medication Reconciliation New Medications: Levofloxacin (Levofloxacin) 750 Mg Tab 750 MG PO DAILY for 6 Days, #6 TAB Continued Medications: Aspirin (Aspirin 81 Low Dose) 81 Mg Chw 81 MG PO QAM Atorvastatin (Lipitor) 40 Mg Tab 40 MG PO QPM, TAB Buspirone Hcl (Buspirone Hcl) 7.5 Mg Tab 7.5 MG PO BID Clonazepam (Klonopin) 0.5 Mg Tab 0.25 MG PO TID PRN for Anxiety, TAB Digoxin (Digoxin) 0.25 Mg Tab 0.25 MG PO QAM Duloxetine HCl (Cymbalta) 30 Mg Cap 1 CAP PO DAILY for 30 Days, #30 CAP 2 Refills Furosemide (Lasix) 40 Mg Tab 40 MG PO BID, TAB Glimepiride (Glimepiride) 2 Mg Tab 6 MG PO QAM TAKE WITH 4MG TOTAL DOSE 6MG QAM Glimepiride (Glimepiride) 4 Mg Tab 1 TAB PO DAILY for 90 Days, #90 TAB 3 Refills Losartan Potassium (Cozaar) 100 Mg Tab 100 MG PO DAILY, TAB Metformin HCl (Metformin HCl ER) 500 Mg Tabcr 500 MG PO BID Metoprolol Succ (Toprol Xl) (Toprol-Xl ) 100 Mg Tabcr 100 MG PO BID, TAB Potassium Chloride (Potassium Chloride ER) 20 Meq Tab 20 MEQ PO QAM Warfarin Sodium (Warfarin Sodium) 5 Mg Tab 5 MG PO MWF Warfarin Sodium (Warfarin Sodium) 5 Mg Tab 2.5 MG PO 4XWK MONDAY, MONDAY, MONDAY, AND MONDAY Admission Information HPI (per Admitting provider): This is a 66 year old male with a PMH of paroxysmal atrial fibrillation on Coumadin and digoxin, CAD s/p stents, ischemic cardiomyopathy with EF around 35% , DM2, HLD, generalized anxiety and panic disorder presents with R sided shoulder pain/chest pressure. He states that for the past few days he has been having a cough, sputum production and worsening R shoulder pain at the same time. Denies fevers/chills. Denies nausea/vomiting/diarrhea. No palpitations. Physical Exam (per Admitting): General Appearance: no apparent distress Head: normocephalic, atraumatic Eyes: normal inspection ENT: hearing grossly normal Neck: supple Respiratory/Chest: chest non-tender, lungs clear, normal breath sounds, no respiratory distress, no accessory muscle use Cardiovascular: no murmur, + irregularly irregular Abdomen/GI: normal bowel sounds, non tender, soft Extremities/Musculoskelatal: normal inspection, no calf tenderness, normal capillary refill, no pedal edema, normal range of motion Neurologic/Psych: family worker II-XII nml as tested, no motor/sensory deficits, alert , normal mood/affect, oriented x 3 Skin: normal color Lymphatic: no adenopathy Hospital Course Patient is a 66 yr male with a PMH of paroxysmal atrial fibrillation on Coumadin and digoxin, CAD s/p stents, ischemic cardiomyopathy with EF around 35% , DM2, HLD, generalized anxiety and panic disorder presents with R sided shoulder pain/chest pressure, cough. CAP: CXR:Trace B/L effusion, Patchy density within the right lung base Continue Levaquin Clinically improved Flu screen negative Chest Pain r/o ACS Hx. of CAD and stents cardiac enzymes: negative EKG: Afib, non specific ST-T changes ECHO: As below continue aspirin, statin, b-leticia Discussed with regarding wall motion abnormality (Not new per cardiology) Since chest pain resolved, No stress test for now Needs follow up cardiology as outpatient Ischemic Cardiomyopathy Systolic CHF with EF around 30% no signs of fluid overload, currently euvolemic continue Lasix and Cozaar Paroxysmal A. Fib INR Supratherapeutic :5.6>>5.4>>>3.3 Hold coumadin Digoxin levels normalized continue b-leticia, digoxin DM II hold oral agents insulin sliding scale Generalized Anxiety Panic Disorder continue current medications follows with psychiatry as outpatient DVT px Coumadin Code Status: Full Code PROCEDURES: CXR: 1. Trace bilateral pleural effusions. 2. Patchy density within the right lung base. This may represent atelectasis or pneumonia. 3. Mild central pulmonary vascular congestion without overt edema and cardiomegaly persist. ECHO: 1. Normal LV size, mild concentric LVH. * 2. Severe LV dysfunction. LVEF 25-30%. LAD distribution wall motion abnormality (see bullseye for details). * 3. Normal RV size with moderate RV dysfunction. * 4. Severe biatrial enlargement. * 5. Diastolic dysfunction. * 6. Moderate aortic regurgitation. * 7. Moderate pulmonic regurgitation. * 8. Moderate mitral regurgiation. * 9. Mild to moderate tricuspid regurgitation. * 10. Severe pulmonary hypertension. Est PASP >90 mmHg. Dilated IVC. Est RA 15 mmHg. * 11. Small to moderate pericardial effusion without tamponade physiology. * 12. Compared with prior study: LV function unchanged. PH has progressed. RV function now worse. Total time spent on discharge = This includes examination of the patient, discharge planning, medication reconciliation, and communication with other providers. Discharge Instructions Discharge Instructions Date of Service Feb 12, 2017. Admission Reason for Admission: Right Sided Chest Pain, Uri Discharge Discharge Diagnosis / Problem: Pneumonia, Chest pain Discharge Goals Goal(s): Decrease discomfort, Improve function Activity Recommendations Activity Limitations: resume your previous activity Exercise/Sports Limitations: as tolerated . Instructions / Follow-Up Instructions / Follow-Up Follow up with your Primary care physician on Feb 17, 2017 at 2:00pm Follow up with your Compressor Repairer in 2 weeks as advised You may need stress test if your chest pain reoccurs Complete the antibiotic course as prescribed Get PT/INR checked tomorrow (02/13/17) follow up with your physician for further Coumadin dosage Do not take your Coumadin today as your INR is 3.3 today Seek immediate medical attention if your symptoms reoccur or worsen Current Hospital Diet Patient's current hospital diet: AHA Diet (Heart Healthy), Diabetes Type 2 Diet Discharge Diet Recommended Diet: AHA Diet (Heart Healthy), Diabetes Type 2 Diet Pending Studies Studies pending at discharge: no Medical Emergencies . Who to Call and When: Medical Emergencies: If at any time you feel your situation is an emergency, please call 911 immediately. . Non-Emergent Contact Non-Emergency issues call your: Primary Care Provider, Compressor Repairer Call Non-Emergent contact if: you have a fever, your pain is not controlled, your pain is worsening, your pain is unusual for you, your pain is concerning you, you have any medication questions Seek immediate medical attention if your symptoms reoccur or worsen . . "Provider Documentation" section prepared by Arjun Horvath. . VTE Core Measure Inpt VTE Proph given/why not?: Warfarin (Coumadin) <Electronically signed by Arjun Horvath MD> Signed: 02/12/17 1038 Signed: The status of this report is Signed * If report status is Draft, the document has not been finalized by the responsible provider.
[2017-02-12 11:01] VITALS: BP 121/63; PULSE 53; TEMP 36.5; O2SAT 94
[2017-02-12] MEDS: LEVOFLOXACIN 750 MG TAB PO SCH (11:11)
[2017-02-12] MEDS ORDERED: DIGOXIN 0.25 MG TAB PO SCH (16:00)
== END 2017-02-12 11:21 | disposition home or self-care (01) ==
LOC: C.EDB 21:28 → C.2T 02-11 00:43 → ENRESERV 02-11 01:08
PROVIDERS: ADMIT Family Medicine; ATTEND Internal Medicine
DX: J18.9 Pneumonia, unspecified organism (principal); I48.0 Paroxysmal atrial fibrillation; T46.0X5A Adverse effect of cardiac-stimulant glycosides and drugs of similar action, initial encounter; I25.10 Atherosclerotic heart disease of native coronary artery without angina pectoris; I25.5 Ischemic cardiomyopathy; E11.9 Type 2 diabetes mellitus without complications; I50.22 Chronic systolic (congestive) heart failure; E78.5 Hyperlipidemia, unspecified; G47.33 Obstructive sleep apnea (adult) (pediatric); Z79.01 Long term (current) use of anticoagulants; Z79.82 Long term (current) use of aspirin; Z79.84 Long term (current) use of oral hypoglycemic drugs; Z98.61 Coronary angioplasty status; Z90.49 Acquired absence of other specified parts of digestive tract; Z83.3 Family history of diabetes mellitus; Z82.49 Family history of ischemic heart disease and other diseases of the circulatory system

== ENCOUNTER 2017-02-15 07:15 | Day surgery (SDC) | payer OTHER, MEDICARE ==
[~2017-02-15] VITALS: Ht 172.7 cm; Wt 102.0 kg
[~2017-02-15 07:15] MED LIST changes: -BACL20TA PO; +CYM/30 PO; -FLUO20CA35 PO; +GENERAL ORDER PROBLEM SCH; +GLIM4TAB2 PO; +LOSA100T65 PO; -LOSA50TA6 PO; +LVQ750 PO; -PRED-301 PO; +SODIUM CHLORIDE 0.9% 1000ML 1,000 ML IV SCH
[2017-02-15] MEDS ORDERED: LIDOCAINE/EPINEPHRINE 1% INJ 50 ML VIAL ONE (07:20)
[2017-02-15] MEDS ORDERED: LIDOCAINE HCL 1% 20 ML VIAL ONE (07:20)
[2017-02-15] MEDS ORDERED: MIDAZOLAM HCL 1 MG/ML 2ML VIAL ONE (07:20)
[2017-02-15] MEDS ORDERED: FENTANYL CITRATE INJ 50 MCG/1 ML 2 ML VIAL ONE (07:20)
[2017-02-15 08:30] VITALS: BP 163/73; PULSE 79; TEMP 36.7; O2SAT 93; Ht 172.7 cm; Wt 102.0 kg
[2017-02-15 08:48] LABS: INR 3.1 (0.9-1.1); PARTIAL THROMBOPLASTIN RATIO 1.4; PROTHROMBIN TIME (PATIENT) 35.3 SECONDS (9.0-12.0)
--- NOTE | 2017-02-15 09:22 | Procedure Note ---
Pre-Mod Sedation Assessment General Date of Moderate Sedation: Feb 15, 2017. Vital Signs: Vital Signs Past 12 Hours Date Time Temp Pulse Resp B/P (MAP) Pulse Ox O2 Delivery O2 Flow Rate FiO2 02/15/17 08:30 36.7 79 18 163/73 (103) 93 Room Air Review Cardiovascular: regular rate, rhythm, no edema Abdomen: normal bowel sounds, non tender Lungs: chest non-tender, lungs clear Airway Class: III Pre-Sedation Airway Assessment Oral Cavity: Dentures Able to Visualize Vocal Cords: No Short Thick Neck: No Hx of Sleep Apnea: Yes Smoking Status: Never Smoker Mallampati Classification: Class III ASA Classification: Class III Procedure Planning Contraindications-for Mod Sed: None Yes Notes The planned sedation has been discussed with the patient and consent obtained. I have identified the patient, determined the appropriateness of sedation and have assessed the patient immediately prior to the procedure. All medicine(s) and interventions are by my order.
--- NOTE | 2017-02-15 09:22 | History & Physical Bridge Note ---
H&P Re-Evaluation Bridge Note: I have examined the patient, reviewed the History & Physical and in the interval since the performance of the History & Physical I have noted the following changes of clinical significance: No changes noted
[2017-02-15 09:35] VITALS: BP 163/73; PULSE 79; TEMP 36.7; O2SAT 93
[2017-02-15] MEDS ORDERED: LIDOCAINE HCL 1% 20 ML VIAL INJ ONE (10:10)
[2017-02-15] MEDS ORDERED: ORM MISCELLANEOUS MED XX ONE (10:28)
--- NOTE | 2017-02-15 10:42 | Procedure Note ---
Post-Mod Sedation Assessment General Date of Moderate Sedation Feb 15, 2017. Vital Signs: Vital Signs Past 12 Hours Date Time Temp Pulse Resp B/P (MAP) Pulse Ox O2 Delivery O2 Flow Rate FiO2 02/15/17 09:35 36.7 79 18 163/73 93 Room Air 02/15/17 08:30 36.7 79 18 163/73 (103) 93 Room Air Review - Discharge Criteria Vital Signs Stable: Yes Alert/Oriented/Conversant: Yes Returned to Baseline Mental St: Yes Nausea Absent/Minimal: Yes Pain/Discomfort/Absent/Minimal: Yes Normal/Baseline Respirations: Yes Active Bleeding?: No Pt Received D/C Instructions: Yes Specific Proced. D/C Criteria Distal Pulses Present (Cardiac: Yes Groin site assessed-Card Cath: N/A Voided Prior To Discharge: N/A Discharged Patients Adult Escort/Transportation: Yes
--- NOTE | 2017-02-15 10:44 | [facility] Operative Report ---
Operative Report Operative Date Feb 15, 2017. Pre-Operative Diagnosis Venous Insufficiency Post-Operative Diagnosis Same Procedure(s) Performed Left Leg Greater Saphenous Vein Radiofrequency Ablation Surgeon [employer] Reporter Surgeon(s) None Estimated Blood Loss 6 Findings Severely dilated GSV with large varicosities. Fluids 900 Tumescent Specimens None Drains None Anesthesia Local Complication(s) None Disposition Recovery Room / PACU Indications Chronic venous insufficiency/ulcerations. Description of Procedure US guided access Left GSV below the knee. Catheter inserted, 3cm from SFJ. Tumescent injected. US confirmed not in deep system. 4:00,12 cycles of RFA left GSV. No complications. Patient tolerated well. US confirmed no DVT post procedure. I attest to the content of the Intraoperative Record and any orders documented therein. Any exceptions are noted below.
--- NOTE | 2017-02-15 10:46 | Discharge Instructions ---
Discharge Instructions Procedure Procedure Date: Feb 15, 2017. Reason for Visit: Chronic Venous Insufficiency. Discharge Discharge Date: Feb 15, 2017. Discharge Diagnosis: Chronic venous insufficiency Last Recorded Wt (Kilograms): 102 Anesthesia Post Anesthesia Instructions: If you have had General Anesthesia or IV Sedation: * Do not drive today. * Resume driving when surgeon permits. * Do not make important decisions or sign legal documents today. * Call surgeon for: 1. Temperature elevations greater than 101 degrees F. 2. Uncontrollable pain. 3. Excessive bleeding. 4. Persistent nausea and vomiting. 5. Medication intolerance (nausea, vomiting or rash). * For nausea and vomiting use only clear liquids such as: tea, soda, bouillon until nausea subsides, then gradually increase diet as tolerated. * If you have any concerns or questions, call your surgeon's office. If physician is unavailable and it is an emergency, call 911 or go to the nearest emergency room. Instructions Activity Recommendations: resume regular activity Return to School/Work: with no limitations Recommended Home Diet: resume previous diet Allergies: Coded Allergies: Penicillins (Verified Allergy, Unknown, childhood reaction, 02/15/17) Codeine (Verified Adverse Reaction, Unknown, NAUSEA, LIGHTHEADEDNESS, ) Simvastatin (Verified Adverse Reaction, Unknown, makes him feel like he is high, 02/15/17) Follow Up Additional Instructions: Follow instructions as outlined in paperwork from Dr. Henning' office. Up walking today. Follow up Ultrasound as scheduled. ROXI wrap until scheduled ultrasound Post ultrasound wear compression stockings indefinitely. Any severe pain, present to the emergency room for evaluation for DVT. Follow-up with: Follow-up with cardiology, Dr. Vargas in 2 weeks. Chayito Melendrez Recommendations: Call your doctor if: * Temperature above 101 degrees * Pain not relieved by pain medicine ordered * There is increased drainage or redness from any incision * You have any unanswered questions or concerns. Your Doctors Instructions noted above were prepared by provider Quinton Henning. Patient Signature Section: Patient Instructions Signature Page Sathya Smith Patient (or Guardian) Signature/Date: I have read and understand the instructions given to me by my caregivers. Caregiver/RN/Doctor Signature/Date: The above-named patient and/or guardian has received patient instructions on this date. + Original Patient Signature Page (only) stays with chart. Please make copy for patient.
[2017-02-15 10:50] VITALS: BP 135/59; PULSE 84; TEMP 37; O2SAT 91
[2017-02-15 11:20] VITALS: BP 123/60; PULSE 79; O2SAT 95
== END 2017-02-15 11:25 | disposition home or self-care (01) ==
LOC: C.ACU 07:15
PROVIDERS: ATTEND Internal Medicine Interventional Cardiology
DX: I83.028 Varicose veins of left lower extremity with ulcer other part of lower leg (principal); I87.2 Venous insufficiency (chronic) (peripheral); I48.91 Unspecified atrial fibrillation; Z79.01 Long term (current) use of anticoagulants; E11.9 Type 2 diabetes mellitus without complications; Z79.899 Other long term (current) drug therapy

== ENCOUNTER 2017-02-16 18:54 | Emergency (ER) | payer OTHER, MEDICARE ==
[~2017-02-16] VITALS: Ht 172.7 cm; Wt 104.3 kg
[~2017-02-16 18:54] MED LIST changes: -GENERAL ORDER PROBLEM SCH; -LVQ750 PO; -SODIUM CHLORIDE 0.9% 1000ML 1,000 ML IV SCH
[2017-02-16 19:05] VITALS: TEMP 36.8
[2017-02-16 19:27] VITALS: Ht 172.7 cm; Wt 104.3 kg
--- NOTE | 2017-02-16 19:38 | EMERGENCY ROOM VISIT NOTE ---
History Report prepared by David: Cesia Earl Under the Supervision of: Dr. Harrison Falcon D.O. First contact with patient: 19:12 Chief Complaint: CONFUSION Stated Complaint: CONFUSED AND MIXED UP History of Present Illness The patient is a 66 year old male who presents to the Emergency Room with complaints of intermittent confusion beginning a couple months ago. Per , the patient was wandering around and staring off into space tonight. The patient denies any nausea, vomiting, fever, recent falls or trauma. The patient has followed up with his PCP for his confusion and the patient reports "my doctor is unsure of what's wrong with me". Per , the patient has been forgetting to eat and to take his medication. The patient has a history of anxiety. The patient was started on some new psychiatry medications two months ago. The patient recently had surgery on a vein in right leg. He was at his doctor today for dressing changes on his right leg. The patient reports he still drives. Source of History: patient Onset: a couple months ago Position: other (global) Quality: other (confusion) Timing: intermittent Associated Symptoms: No fevers, No nausea, No vomiting Review of Systems See HPI for pertinent positives & negatives. A total of 10 systems reviewed and were otherwise negative. Past Medical & Surgical Medical Problems: (1) Anxiety (2) Anxiety reaction (3) Atrial fibrillation, chronic (4) Bilateral lower extremity edema (5) CAD (coronary artery disease) (6) Diabetes mellitus type II, controlled (7) Dyslipidemia (8) HTN (hypertension) (9) ANTOINETTE on CPAP (10) Systolic CHF (11) URI (upper respiratory infection) Surgical Problems: (1) History of partial colectomy (2) Stented coronary artery Family History Diabetes mellitus FH: cancer FH: heart disease Hypertension Social History Smoking Status: Never Smoker Alcohol Use: none Drug Use: none Marital Status: Housing Status: lives with significant other Occupation Status: retired Current/Historical Medications Scheduled Aspirin (Aspirin 81 Low Dose), 81 MG PO QAM Atorvastatin (Lipitor), 40 MG PO QPM Buspirone Hcl (Buspirone Hcl), 7.5 MG PO BID Digoxin (Digoxin), 0.25 MG PO QAM Duloxetine HCl (Cymbalta), 30 MG PO DAILY Furosemide (Lasix), 40 MG PO BID Glimepiride (Glimepiride), 6 MG PO DAILY Glimepiride (Glimepiride), 6 MG PO DAILY Losartan Potassium (Cozaar), 100 MG PO DAILY Metformin HCl (Metformin HCl ER), 500 MG PO BID Metoprolol Succ (Toprol Xl) (Toprol-Xl ), 100 MG PO BID Potassium Chloride (Potassium Chloride ER), 20 MEQ PO QAM Warfarin Sodium (Warfarin Sodium), 5 MG PO MWF Warfarin Sodium (Warfarin Sodium), 2.5 MG PO 4XWK Scheduled PRN Clonazepam (Klonopin), 0.25 MG PO TID PRN for Anxiety Allergies Coded Allergies: Penicillins (Verified Allergy, Unknown, childhood reaction, 02/16/17) Codeine (Verified Adverse Reaction, Unknown, NAUSEA, LIGHTHEADEDNESS, ) Simvastatin (Verified Adverse Reaction, Unknown, makes him feel like he is high, 02/16/17) Physical Exam Vital Signs Date Time Temp Pulse Resp B/P (MAP) Pulse Ox O2 Delivery O2 Flow Rate FiO2 02/16/17 22:09 77 30 02/16/17 22:04 82 27 02/16/17 21:59 83 23 02/16/17 21:54 73 29 02/16/17 21:49 82 28 02/16/17 21:44 80 25 02/16/17 21:39 85 22 02/16/17 21:34 78 30 02/16/17 21:29 80 32 02/16/17 21:24 85 26 02/16/17 21:19 85 27 02/16/17 21:14 76 27 02/16/17 21:09 84 28 02/16/17 21:04 83 22 02/16/17 20:59 81 22 02/16/17 20:54 83 28 02/16/17 20:49 78 29 02/16/17 20:44 88 22 02/16/17 20:39 83 28 02/16/17 20:34 86 22 02/16/17 20:29 88 25 02/16/17 20:24 91 21 89 02/16/17 20:23 78 20 159/86 93 Room Air 02/16/17 20:19 80 35 91 02/16/17 20:17 159/86 02/16/17 19:49 77 25 02/16/17 19:47 94 02/16/17 19:44 90 24 02/16/17 19:39 87 28 92 02/16/17 19:35 77 02/16/17 19:34 80 24 02/16/17 19:27 94 Room Air 02/16/17 19:05 36.8 77 16 164/71 94 Room Air Physical Exam GENERAL: Patient is awake, alert, and in no acute distress. Patient is resting comfortably and showing no signs of anxiety EYES: The conjunctivae are clear. The pupils are round and reactive. EARS, NOSE, MOUTH AND THROAT: The nose is without any evidence of any deformity. Mucous membranes are moist tongue is midline NECK: The neck is nontender and supple. RESPIRATORY: Normal respiratory effort is noted there is no evidence of wheezing rhonchi or rales CARDIOVASCULAR: Regular rate and rhythm noted there no murmurs rubs or gallops normal S1 normal S2 GASTROINTESTINAL: The abdomen is soft. Bowel sounds are present in all quadrants. Abdomen is nontender MUSCULOSKELETAL/EXTREMITIES: There is no evidence of gross deformity full range of motion is noted in the hips and shoulders SKIN: Pedal edema bilaterally. There is no obvious evidence of any rash. There are no petechiae, pallor or cyanosis noted. NEUROLOGIC: Patient is slow to answers questions but is awake alert and oriented x3 strength is symmetric Medical Decision & Procedures ER Provider Diagnostic Interpretation: Radiology results as stated below per my review and radiologist interpretation: CHEST ONE VIEW PORTABLE FINDINGS: The heart remains enlarged. Right medial basilar density persists. Mild pulmonary vascular congestion without overt edema. Trace bilateral pleural effusions are unchanged. IMPRESSION: 1. Stable cardiomegaly and mild pulmonary vascular congestion. 2. Trace bilateral pleural effusions, unchanged. 3. Stable right medial lung base density which may be due to prominent mediastinal fat. Electronically signed by: Jeramy Esquivel M.D. HEAD CT NONCONTRAST Findings: The paranasal sinuses and mastoid air cells are clear. The calvarium and skull base are intact. There is no mass, hematoma, midline shift, acute infarct. White matter hypodensity is nonspecific but suggestive of microvascular ischemic change. The ventricles and sulci demonstrate mild age-related involutional changes. Impression: No significant change compared to the prior study. No acute intracranial abnormality. Electronically signed by: Jeramy Esquivel M.D. Laboratory Results 02/16/17 19:43 Red Blood Count 4.36, Mean Corpuscular Volume 94.5, Mean Corpuscular Hemoglobin 31.2, Mean Corpuscular Hemoglobin Concent 33.0, Mean Platelet Volume 9.8, Neutrophils (%) (Auto) 73.1, Lymphocytes (%) (Auto) 13.7, Monocytes (%) (Auto) 11.7, Eosinophils (%) (Auto) 1.2, Basophils (%) (Auto) 0.0, Neutrophils # (Auto ) 4.85, Lymphocytes # (Auto) 0.91, Monocytes # (Auto) 0.78, Eosinophils # (Auto ) 0.08, Basophils # (Auto) 0.00 02/16/17 19:43 Test 02/16/17 19:41 02/16/17 19:43 02/16/17 20:12 Bedside Glucose 95 mg/dl (70-99) White Blood Count 6.64 K/uL (4.8-10.8) Red Blood Count 4.36 M/uL (4.7-6.1) Hemoglobin 13.6 g/dL (14.0-18.0) Hematocrit 41.2 % (42-52) Mean Corpuscular Volume 94.5 fL (80-100) Mean Corpuscular Hemoglobin 31.2 pg (25-34) Mean Corpuscular Hemoglobin Concent 33.0 g/dl (32-36) Platelet Count 158 K/uL (130-400) Mean Platelet Volume 9.8 fL (7.4-10.4) Neutrophils (%) (Auto) 73.1 % Lymphocytes (%) (Auto) 13.7 % Monocytes (%) (Auto) 11.7 % Eosinophils (%) (Auto) 1.2 % Basophils (%) (Auto) 0.0 % Neutrophils # (Auto) 4.85 K/uL (1.4-6.5) Lymphocytes # (Auto) 0.91 K/uL (1.2-3.4) Monocytes # (Auto) 0.78 K/uL (0.11-0.59) Eosinophils # (Auto) 0.08 K/uL (0-0.5) Basophils # (Auto) 0.00 K/uL (0-0.2) RDW Standard Deviation 55.8 fL (36.4-46.3) RDW Coefficient of Variation 16.2 % (11.5-14.5) Immature Granulocyte % (Auto) 0.3 % Immature Granulocyte # (Auto) 0.02 K/uL (0.00-0.02) Prothrombin Time 32.8 SECONDS (9.0-12.0) Prothromb Time International Ratio 2.9 (0.9-1.1) Activated Partial Thromboplast Time 37.4 SECONDS (21.0-31.0) Partial Thromboplastin Ratio 1.4 Anion Gap 5.0 mmol/L (3-11) Est Creatinine Clear Calc Drug Dose 89.5 ml/min Estimated GFR () 96.3 Estimated GFR (Non- 83.1 BUN/Creatinine Ratio 18.1 (10-20) Calcium Level 8.8 mg/dl (8.5-10.1) Magnesium Level 1.7 mg/dl (1.8-2.4) Total Bilirubin 1.0 mg/dl (0.2-1) Direct Bilirubin 0.3 mg/dl (0-0.2) Aspartate Amino Transf (AST/SGOT) 19 U/L (15-37) Alanine Aminotransferase (ALT/SGPT) 23 U/L (12-78) Alkaline Phosphatase 114 U/L (45-117) Total Creatine Kinase 72 U/L (39-308) Creatine Kinase MB 1.6 ng/ml (0.5-3.6) Creatine Kinase MB Ratio 2.2 (0-3.0) Troponin I 0.034 ng/ml (0-0.045) Total Protein 7.6 gm/dl (6.4-8.2) Albumin 3.6 gm/dl (3.4-5.0) Thyroid Stimulating Hormone (TSH) 2.600 uIu/ml (0.300-4.500) Urine Color YELLOW Urine Appearance CLEAR (CLEAR) Urine pH 5.0 (4.5-7.5) Urine Specific [place] 1.016 (1.000-1.030) Urine Protein NEG (NEG) Urine Glucose (UA) NEG (NEG) Urine Ketones NEG (NEG) Urine Occult Blood NEG (NEG) Urine Nitrite NEG (NEG) Urine Bilirubin NEG (NEG) Urine Urobilinogen NEG (NEG) Urine Leukocyte Esterase NEG (NEG) Digoxin Level 0.9 ng/ml (0.8-2.0) Urine Opiates Screen NEG (NEG) Urine Methadone, Qualitative NEG (NEG) Urine Barbiturates NEG (NEG) Urine Phencyclidine (PCP) Level NEG (NEG) Ur Amphetamine/Methamphetamine NEG (NEG) MDMA (Ecstasy) Screen NEG (NEG) Urine Benzodiazepines Screen NEG (NEG) Urine Cocaine Metabolite NEG (NEG) Urine Marijuana (THC) NEG (NEG) Laboratory results per my review. Medications Administered Medications (Trade) Dose Ordered Sig/Jazmyne Route Start Time Stop Time Status Last Admin Dose Admin Magnesium Sulfate (Magnesium Sulfate) 1 gm NOW STAT IV 02/16/17 20:45 02/16/17 20:46 DC 02/16/17 20:50 1 GM ECG Indication: altered mental status Rate (beats per minute): 76 Rhythm: atrial fibrillation Findings: ST depression (diffuse), other (No PVC) Comparison ECG Date: 02/12/17 Change: no significant change ED Course 1914: The patient was evaluated in room C9. A complete history and physical examination were performed. 2044: Ordered Magnesium Sulfate 1 gm IV. 2101: Gee-counter caser from psychiatry will come and evaluate the patient. 2257: Upon reevaluation, the patient is resting comfortably. I discussed the results and treatment plan with him. He verbalized agreement of the treatment plan. The patient was discharged home. Medical Decision Differential diagnosis: Etiologies such as metabolic, infection, hypoglycemia, electrolyte abnormalities , cardiac sources, intracerebral event, toxicologic, neurologic, as well as others were entertained. Nursing notes reviewed. The patient is a 66-year-old male who presented to the emergency department for an evaluation of altered mental status. The patient has been having episodes of confusion over the last few months. The patient was seen by the primary care physician and some medications were started. Despite this he continues to have waxing and waning of his mental status. At this time he has no focal neurologic deficits. He has had multiple studies in the past which did not reveal cause for his confusion. I discussed the patient's laboratory and radiographic studies with him. I also discussed his condition with his significant other. The patient was evaluated by the mental health counter caser while he was in the emergency department. At this time it does appear that some of his complaints could be related to anxiety and underlying dementia. He was encouraged not to drive until he is cleared by his family doctor to follow-up with his family doctor soon as possible. He was also encouraged to discuss the possibility that he may require a referral to a neurologist or possibly further neuroimaging. He was also encouraged return to the emergency Department immediately if symptoms change worsen or the need arises. Medication Reconcilliation Current Medication List: was personally reviewed by me Blood Pressure Screening Patient's blood pressure: Elevated blood pressure Blood pressure disposition: Elevated BP felt to be situational Impression Primary Impression: Altered mental status Additional Impression: Hypomagnesemia Scribe Attestation The scribe's documentation has been prepared under my direction and personally reviewed by me in its entirety. I confirm that the note above accurately reflects all work, treatment, procedures, and medical decision making performed by me. Departure Information Dispostion Home / Self-Care Referrals Delmer Gracia M.D. (PCP) Forms HOME CARE DOCUMENTATION FORM, IMPORTANT VISIT INFORMATION, WORK / SCHOOL INSTRUCTIONS Patient Instructions ED Confusion, My [facility] Additional Instructions Continue all medications as prescribed. Call your family in the morning to discuss a follow-up appointment and possible further testing. You may also require a referral to a neurologist to further evaluate the cause of her symptoms. Avoid driving until your cleared by your primary care physician. Problem Qualifiers Primary Impression: Altered mental status Altered mental status type: unspecified Qualified Codes: R41.82 - Altered mental status, unspecified
[2017-02-16 19:47] VITALS: O2SAT 94
[2017-02-16 19:53] LABS: COMPLETE YES; EOS % 1.2 %; HEMATOCRIT 41.2 % (42-52); IG% 0.3 %; LYMPH % 13.7 %; LYMPH ABS # 0.91 K/uL (1.2-3.4); MEAN CELL VOLUME 94.5 fL (80-100); MEAN CORPUSCULAR HEMOGLOBIN 31.2 pg (25-34); MEAN PLATELET VOLUME 9.8 fL (7.4-10.4); MONO % 11.7 %; NEUT % 73.1 %; PLATELET COUNT 158 K/uL (130-400); RED BLOOD COUNT 4.36 M/uL (4.7-6.1); WHITE BLOOD COUNT 6.64 K/uL (4.8-10.8)
--- NOTE | 2017-02-16 20:11 | DIAGNOSTIC IMAGING REPORT ---
HEAD CT NONCONTRAST CT DOSE: 1753.81 mGy.cm HISTORY: EVALUATE ALTERED MENTAL STATUS/WEAKNESS TECHNIQUE: Multiaxial CT images of the head were performed without the use of intravenous contrast. Automated exposure control was utilized for this study. A dose lowering technique was utilized adhering to the principles of ALARA. Comparison: Head CT 12/02/2016. Findings: The paranasal sinuses and mastoid air cells are clear. The calvarium and skull base are intact. There is no mass, hematoma, midline shift, acute infarct. White matter hypodensity is nonspecific but suggestive of microvascular ischemic change. The ventricles and sulci demonstrate mild age-related involutional changes. Impression: No significant change compared to the prior study. No acute intracranial abnormality. Electronically signed by: Jeramy Esquivel M.D. 02/16/2017 8:10 PM Dictated Date/Time: 02/16/2017 8:07 PM
[2017-02-16 20:15] LABS: INR 2.9 (0.9-1.1); PARTIAL THROMBOPLASTIN RATIO 1.4; PROTHROMBIN TIME (PATIENT) 32.8 SECONDS (9.0-12.0)
[2017-02-16 20:19] LABS: BUN/CREATININE RATIO 18.1 (10-20); CALCIUM 8.8 mg/dl (8.5-10.1); CREATININE 0.95 mg/dl (0.60-1.40); MAGNESIUM 1.7 mg/dl (1.8-2.4); POTASSIUM 3.5 mmol/L (3.5-5.1)
[2017-02-16 20:23] VITALS: BP 159/86
--- NOTE | 2017-02-16 20:23 | DIAGNOSTIC IMAGING REPORT ---
CHEST ONE VIEW PORTABLE HISTORY: EVALUATE ALTERED MENTAL STATUS/WEAKNESS COMPARISON: Chest 02/10/2017. FINDINGS: The heart remains enlarged. Right medial basilar density persists. Mild pulmonary vascular congestion without overt edema. Trace bilateral pleural effusions are unchanged. IMPRESSION: 1. Stable cardiomegaly and mild pulmonary vascular congestion. 2. Trace bilateral pleural effusions, unchanged. 3. Stable right medial lung base density which may be due to prominent mediastinal fat. Electronically signed by: Jeramy Esquivel M.D. 02/16/2017 8:21 PM Dictated Date/Time: 02/16/2017 8:19 PM
[2017-02-16 20:24] VITALS: O2SAT 89
[2017-02-16 20:30] LABS: CKMB/CK RATIO 2.2 (0-3.0); THYROID STIMULATING HORMONE 2.6 uIu/ml (0.300-4.500)
[2017-02-16] MEDS ORDERED: MAGNESIUM SULFATE 1GM / D5W 1 GM BAG IV STA (20:45)
[2017-02-16 21:04] LABS: URINE APPEARANCE CLEAR (CLEAR); URINE BILIRUBIN NEG (NEG); URINE COLOR YELLOW; URINE NITRITE NEG (NEG); URINE SPECIFIC GRAVITY 1.016 (1.000-1.030); UROBILINOGEN NEG (NEG)
[2017-02-16 21:16] LABS: MANUAL MICROSCOPIC REQUIRED? NO; REVIEW REQ? NO
[2017-02-16 21:21] LABS: BENZODIAZEPINE, URINE NEG (NEG); COCAINE,URINE NEG (NEG); PHENCYCLIDINE, URINE NEG (NEG)
[2017-02-16 22:09] VITALS: PULSE 77
== END 2017-02-16 23:06 | disposition home or self-care (01) ==
LOC: C.EDB 18:55 → C.EDC 23:06
DX: R41.82 Altered mental status, unspecified (principal); E83.42 Hypomagnesemia; F41.9 Anxiety disorder, unspecified; I48.91 Unspecified atrial fibrillation; I25.10 Atherosclerotic heart disease of native coronary artery without angina pectoris; E11.9 Type 2 diabetes mellitus without complications; E78.5 Hyperlipidemia, unspecified; I10 Essential (primary) hypertension; Z83.3 Family history of diabetes mellitus; Z82.49 Family history of ischemic heart disease and other diseases of the circulatory system; Z79.82 Long term (current) use of aspirin; Z79.01 Long term (current) use of anticoagulants

== ENCOUNTER 2017-05-04 06:07 | Day surgery (SDC) | payer OTHER, MEDICARE ==
[~2017-05-04] VITALS: Ht 172.7 cm; Wt 99.0 kg
[~2017-05-04 06:07] MED LIST changes: +SODIUM CHLORIDE 0.9% 1000ML IV SCH
[2017-05-04 06:51] VITALS: BP 143/63; PULSE 73; TEMP 36.8; O2SAT 98; Ht 172.7 cm; Wt 99.0 kg
[2017-05-04] MEDS ORDERED: LIDOCAINE/EPINEPHRINE 1% 20 ML VIAL ONE (07:44)
[2017-05-04] MEDS ORDERED: LIDOCAINE HCL 1% 20 ML VIAL ONE (07:44)
--- NOTE | 2017-05-04 07:49 | Pre Sedation Assessment ---
Pre Sedation Assessment General Date of Sedation: May 04, 2017. Vital Signs Past 12 Hours Date Time Temp Pulse Resp B/P (MAP) Pulse Ox O2 Delivery O2 Flow Rate FiO2 05/04/17 06:51 36.8 73 20 143/63 (89) 98 Room Air Review Cardiovascular: regular rate, rhythm, no edema Lungs: chest non-tender, lungs clear Pre-Sedation Airway Assessment Smoking Status: Never Smoker Hx of Sleep Apnea: Yes Hx of difficult intubation: No Short Thick Neck: No Oral Cavity: Dentures Mallampati Classification: Class II ASA Classification: Class II NPO Status Date of Last Intake of Fluids: May 04, 2017 Time of Last Intake of Fluids: 0415 Date of Last Intake of Solids: May 03, 2017 Time of Last Intake of Solids: 1630 Procedure Planning Contraindications for Sedation: None Current Medications Reviewed: Yes Notes The planned sedation has been discussed with the patient. Informed Consent was obtained. I have identified the patient, determined the appropriateness of sedation and have assessed the patient immediately prior to the procedure. All medicine(s) and interventions are by my order.
--- NOTE | 2017-05-04 07:58 | History and Physical ---
History & Physical Date May 04, 2017. History of Present Illness Mr. Smith is a very pleasant 66-year-old man with a history of ischemic cardiomyopathy, EF 40-45%, paroxysmal atrial fibrillation Coumadin, hypertension , hyperlipidemia, type 2 diabetes and longstanding chronic venous insufficiency with venous ulcerations who returns to clinic for ongoing management of his venous insufficiency. Patient is followed by Dr. Vargas for his cardiac issues. Was initially seen by me in [facility] in January of 2017. At that time he had healing ulcerations over his bilateral medial ankles for months. He underwent left GSV RFA 02/15/2017. Procedure was uncomplicated and follow-up ultrasound showed appropriate closure of GSV with no DVT. Since procedure patient states that he is very happy with how his leg feels. Endorses improved sensation, along with decreased edema. Prior ulcerations have healed. No active ulcerations on right lower extremity. Initial ultrasound showed reflux in bilateral SSVs. Past Medical/Surgical History Medical Problems: (1) Anxiety (2) Anxiety reaction (3) Atrial fibrillation, chronic (4) Bilateral lower extremity edema (5) CAD (coronary artery disease) (6) Diabetes mellitus type II, controlled (7) Dyslipidemia (8) HTN (hypertension) (9) ANTOINETTE on CPAP (10) Systolic CHF (11) URI (upper respiratory infection) Surgical Problems: (1) History of partial colectomy (2) Stented coronary artery Additional History Hepatic Disease: No Endocrine Disorder: Yes Kidney Disease: No Hypertension: Yes Heart Disease: Yes Bleeding Tendencies: No Infectious Diseases: No Allergies Coded Allergies: Penicillins (Verified Allergy, Unknown, childhood reaction, 05/04/17) Codeine (Verified Adverse Reaction, Unknown, NAUSEA, LIGHTHEADEDNESS, ) Simvastatin (Verified Adverse Reaction, Unknown, makes him feel like he is high, 02/16/17) Home Medications Scheduled Aspirin (Aspirin 81 Low Dose), 81 MG PO QAM Atorvastatin (Lipitor), 40 MG PO QPM Buspirone Hcl (Buspirone Hcl), 7.5 MG PO BID Digoxin (Digoxin), 0.25 MG PO QAM Duloxetine HCl (Cymbalta), 30 MG PO DAILY Furosemide (Lasix), 40 MG PO BID Glimepiride (Glimepiride), 6 MG PO DAILY Glimepiride (Glimepiride), 6 MG PO DAILY Losartan Potassium (Cozaar), 100 MG PO DAILY Metformin HCl (Metformin HCl ER), 500 MG PO BID Metoprolol Succ (Toprol Xl) (Toprol-Xl ), 100 MG PO BID Potassium Chloride (Potassium Chloride ER), 20 MEQ PO QAM Warfarin Sodium (Warfarin Sodium), 5 MG PO WK Warfarin Sodium (Warfarin Sodium), 2.5 MG PO 6XWK Scheduled PRN Clonazepam (Klonopin), 0.25 MG PO TID PRN for Anxiety Physical Examination Skin: warm/dry Respiratory/Chest: lungs clear, normal breath sounds Cardiovascular: regular rate, rhythm Back: normal inspection Extremities: + pertinent finding (Mild edema, chronic venous stasis changes. ) Neurologic/Psych: alert, oriented x 3 Diagnosis Chronic venous insufficiency ASA Classification: ASA Class II Plan of Treatment Proceed with bilateral SSV ablation.
[2017-05-04] MEDS ORDERED: MIDAZOLAM HCL 1 MG/ML 2ML VIAL ONE (08:00)
[2017-05-04] MEDS ORDERED: FENTANYL CITRATE INJ 50 MCG/1 ML 2 ML VIAL ONE (08:00)
[2017-05-04] MEDS ORDERED: SODIUM BICARB 8.4% INJ 50 MEQ/50 ML SYR IV ONE (08:07)
--- NOTE | 2017-05-04 08:28 | Post Sedation Assessment ---
Post Sedation Assessment General Date of Sedation May 04, 2017. Vital Signs: Vital Signs Past 12 Hours Date Time Temp Pulse Resp B/P (MAP) Pulse Ox O2 Delivery O2 Flow Rate FiO2 05/04/17 08:20 67 16 152/76 94 Room Air 05/04/17 08:17 70 16 154/75 93 Room Air 05/04/17 06:51 36.8 73 20 143/63 (89) 98 Room Air Post Procedure Recovery Score Activity: (2) Moves 4 extremities * Respiration: (2) Deep breath/cough Circulation: (2) +/-20% PreAnes Value Consciousness: (2) Fully Awake Oxygen Saturation: (2) > 92% On Room Air Discharge Sedation Level of Care: Fast Track Phase II Post Sedation Plan On clinical assessment, the patient appears to have tolerated the sedation without complications. Patient is recovering as anticipated. Patient will continue to be monitored by nursing and may be discharged when sedation discharge criteria are met per below protocol. Upon Completions of procedure and additional 15 minutes continue every 5 minute vital signs and the P.A.R. score; then discharge to a Phase I or Fast Track to Phase II per the following guidelines: * Discharge Patient to appropriate Phase II area if PAR is 8 or greater or return to pre- procedure baseline. The post - procedure orders will be as directed. * If PAR score is less than 8 or not return to pre-procedure baseline then patient will follow Phase I monitoring till PAR is reached for Phase II. The Phase I may be done in procedure room or may call to secure a Phase I area. * If naloxone or flumazenil are used for reversal, hold in Phase I for an additional 60 -120 minutes before discharge to Phase II. Please call the Sedation Physician to re-evaluate and complete post-note for discharge to Phase II area. Do NOT discharge from procedure sedation or Phase 1 until post- sedation evaluation note is complete by procedure /sedation MD Sedation Discharge Instructions to be given to the patient at discharge to home.
[2017-05-04] MEDS ORDERED: ORM MISCELLANEOUS MED XX ONE (09:13)
[2017-05-04] MEDS ORDERED: LIDOCAINE HCL 1% 20 ML VIAL INJ ONE (09:13)
--- NOTE | 2017-05-04 09:17 | [facility] Operative Report ---
Operative Report Operative Date May 04, 2017. Pre-Operative Diagnosis Venous Insufficiency Post-Operative Diagnosis Venous Insufficiency Procedure(s) Performed Bilateral Leg Small Saphenous Vein Radiofrequency Ablation Surgeon Juvencio Beef Grader Surgeon(s) None Estimated Blood Loss 7 Findings Dilated bilateral SSVs with distal varices Specimens None Drains None Anesthesia Type Local Complication(s) none Disposition no Recovery Room / PACU Indications Chronic venous insufficiency; venous ulcerations Description of Procedure -- BILATERAL SMALL SAPHENOUS VEIN RADIOFREQUENCY ABLATION -- US guided access Left SSV . Catheter inserted with distal tip below the knee/below the popliteal/SSV junction. Tumescent injected. US confirmed not in deep system. 1:20, 4 cycles of RFA Left SSV. No complications. Patient tolerated well. US confirmed no DVT post procedure. US guided access Right SSV . Catheter inserted with distal tip below the knee/below the popliteal/SSV junction. Tumescent injected. US confirmed not in deep system. 1:40, 5 cycles of RFA right SSV. No complications. Patient tolerated well. US confirmed no DVT post procedure. Summary: 1. Successful bilateral small saphenous vein RFA I attest to the content of the Intraoperative Record and any orders documented therein. Any exceptions are noted below.
--- NOTE | 2017-05-04 09:20 | Discharge Instructions ---
Discharge Instructions Procedure Procedure Date: May 04, 2017. Reason for Visit: Chronic Venous Insufficiency. Discharge Discharge Date: May 04, 2017. Discharge Diagnosis: Chronic venous insufficiency Last Recorded Wt (Kilograms): 99 Instructions Activity Recommendations: resume regular activity Recommended Home Diet: resume previous diet, low sodium Allergies: Coded Allergies: Penicillins (Verified Allergy, Unknown, childhood reaction, 05/04/17) Codeine (Verified Adverse Reaction, Unknown, NAUSEA, LIGHTHEADEDNESS, ) Simvastatin (Verified Adverse Reaction, Unknown, makes him feel like he is high, 02/16/17) Follow Up Additional Instructions: Follow instructions as outlined in paperwork from Dr. Henning' office. Up walking today. Follow up Ultrasound as scheduled. ROXI wrap until scheduled ultrasound Post ultrasound wear compression stockings indefinitely. Any severe pain, present to the emergency room for evaluation for DVT. Follow-up with: As scheduled Chayito Melendrez Recommendations: Call your doctor if: * Temperature above 101 degrees * Pain not relieved by pain medicine ordered * There is increased drainage or redness from any incision * You have any unanswered questions or concerns. Your Doctors Instructions noted above were prepared by provider Quinton Henning. Patient Signature Section: Patient Instructions Signature Page Sathya Smith Patient (or Guardian) Signature/Date: I have read and understand the instructions given to me by my caregivers. Caregiver/RN/Doctor Signature/Date: The above-named patient and/or guardian has received patient instructions on this date. + Original Patient Signature Page (only) stays with chart. Please make copy for patient.
[2017-05-04 09:34] VITALS: BP 136/63; PULSE 82; TEMP 37.1; O2SAT 95
== END 2017-05-04 09:55 | disposition home or self-care (01) ==
LOC: C.ACU 06:07
PROVIDERS: ATTEND Internal Medicine Interventional Cardiology
DX: I87.2 Venous insufficiency (chronic) (peripheral) (principal); I25.5 Ischemic cardiomyopathy; I48.0 Paroxysmal atrial fibrillation; E78.5 Hyperlipidemia, unspecified; E11.9 Type 2 diabetes mellitus without complications; I25.10 Atherosclerotic heart disease of native coronary artery without angina pectoris; I50.20 Unspecified systolic (congestive) heart failure; I11.0 Hypertensive heart disease with heart failure; G47.33 Obstructive sleep apnea (adult) (pediatric); Z99.89 Dependence on other enabling machines and devices; Z79.01 Long term (current) use of anticoagulants; Z88.0 Allergy status to penicillin; Z88.5 Allergy status to narcotic agent; Z90.49 Acquired absence of other specified parts of digestive tract; Z79.82 Long term (current) use of aspirin

== ENCOUNTER 2017-07-19 22:16 | Inpatient (IN) | payer OTHER, MEDICARE ==
[~2017-07-19] VITALS: Ht 172.7 cm; Wt 104.2 kg
[~2017-07-19 22:16] MED LIST changes: -SODIUM CHLORIDE 0.9% 1000ML IV SCH
[2017-07-20] VITALS (7 sets, daily range): BP systolic 126–153; BP diastolic 67–84; PULSE 58–89; TEMP 36.4–36.8; O2SAT 93–96; Ht 172.7 cm; Wt 104.2 kg
[2017-07-20] LABS: BASO % 0.2 %; BASO ABS # 0.01 K/uL (0-0.2); EOS % 1.8 %; HEMATOCRIT 40.7 % (42-52); HEMOGLOBIN 13.8 g/dL (14.0-18.0); IG# 0.01 K/uL (0.00-0.02); LYMPH % 13.7 %; LYMPH ABS # 0.78 K/uL (1.2-3.4); MEAN CORPUSCULAR HEMOGLOBIN 31.9 pg (25-34); MEAN CORPUSCULAR HGB CONC 33.9 g/dl (32-36); MONO % 13.4 %; MONO ABS # 0.76 K/uL (0.11-0.59); NEUT % 70.7 %; NEUT ABS # 4.03 K/uL (1.4-6.5); PLATELET COUNT 153 K/uL (130-400); RED CELL DISTRIBUTION WIDTH CV 15.5 % (11.5-14.5); RED CELL DISTRIBUTION WIDTH SD 53.2 fL (36.4-46.3); WHITE BLOOD COUNT 5.69 K/uL (4.8-10.8)
[2017-07-20 00:16] LABS: ALBUMIN 3.5 gm/dl (3.4-5.0); CALCIUM 8.2 mg/dl (8.5-10.1); CREATININE 0.94 mg/dl (0.60-1.40); POTASSIUM 3.2 mmol/L (3.5-5.1)
[2017-07-20] MEDS ORDERED: POTASSIUM CHLORIDE 10 MEQ TABCR PO STA ×2 (00:30→04:15)
[2017-07-20 00:32] LABS: PHOSPHORUS 2.6 mg/dl (2.5-4.9); TOTAL PROTEIN 7.6 gm/dl (6.4-8.2)
--- NOTE | 2017-07-20 00:36 | EMERGENCY ROOM VISIT NOTE ---
History Report prepared by David: Anh Sweet Under the Supervision of: Dr. Fide Mcghee D.O. First contact with patient: 22:49 Chief Complaint: FALL Stated Complaint: COLLAPSED FELL ON FLOOR History of Present Illness The patient is a 66 year old male who presents to the Emergency Room with complaints of multiple falls starting 2 days ago. The patient has fallen 3 times in 2 days. His legs suddenly become weak and he falls to the ground. He does not feel dizzy or lightheaded before falling. He reports that he has hit his head with the falls and thinks he possibly might have lost consciousness. He has never fallen this way before. He denies any chest pain, back pain, palpitations, change in bowel movement, urinary symptoms, nausea, ear ringing, headache, or blurry vision. The swelling in his legs is not increased. He denies any previous back, hip, or knee problems. He denies any change in diet, recent travel, or recent illness. He does not use a cane or walker to ambulate. He has a history of anxiety attacks. His notes that his anxiety medication was recently increased. Source of History: patient, spouse/significant other Onset: 2 days ago Position: leg Quality: other (fall) Timing: other (multiple) Associated Symptoms: + weakness, No headache, No chest pain, No nausea, No back pain, No urinary symptoms Review of Systems See HPI for pertinent positives & negatives. A total of 10 systems reviewed and were otherwise negative. Past Medical & Surgical Medical Problems: (1) Anxiety (2) Anxiety reaction (3) Atrial fibrillation, chronic (4) Bilateral lower extremity edema (5) CAD (coronary artery disease) (6) Diabetes mellitus type II, controlled (7) Dyslipidemia (8) HTN (hypertension) (9) Major depressive disorder, recurrent, moderate (10) ANTOINETTE on CPAP (11) Panic disorder (12) Syncope (13) Systolic CHF (14) URI (upper respiratory infection) Surgical Problems: (1) History of partial colectomy (2) Stented coronary artery Family History Diabetes mellitus FH: cancer FH: heart disease Hypertension Social History Smoking Status: Never Smoker Alcohol Use: none Drug Use: none Marital Status: Housing Status: lives with significant other Occupation Status: retired Current/Historical Medications Scheduled Aspirin (Aspirin 81 Low Dose), 81 MG PO QAM Atorvastatin (Lipitor), 40 MG PO QPM Buspirone Hcl (Buspirone Hcl), 7.5 MG PO BID Clonazepam (Klonopin), 0.5 MG PO BID Digoxin (Digoxin), 0.25 MG PO QAM Fluoxetine (Prozac), 40 MG PO BID Furosemide (Lasix), 80 MG PO BID Glimepiride (Glimepiride), 2 MG PO DAILY Glimepiride (Glimepiride), 4 MG PO DAILY Metformin HCl (Metformin HCl ER), 500 MG PO BID Metoprolol Succ (Toprol Xl) (Toprol-Xl ), 100 MG PO BID Potassium Chloride (Micro-K Ext Rel), 10 MEQ PO DAILY Warfarin Sodium (Warfarin Sodium), 5 MG PO WK Warfarin Sodium (Warfarin Sodium), 2.5 MG PO [id number] Allergies Coded Allergies: Penicillins (Verified Allergy, Unknown, childhood reaction, 05/04/17) Codeine (Verified Adverse Reaction, Unknown, NAUSEA, LIGHTHEADEDNESS, ) Simvastatin (Verified Adverse Reaction, Unknown, makes him feel like he is high, 02/16/17) Physical Exam Vital Signs Date Time Temp Pulse Resp B/P (MAP) Pulse Ox O2 Delivery O2 Flow Rate FiO2 07/20/17 01:33 91 20 123/74 97 Room Air 07/20/17 00:02 78 22 126/70 94 Room Air 07/19/17 22:52 76 07/19/17 22:28 36.5 88 18 151/76 91 Room Air Physical Exam GENERAL: alert, well appearing, well nourished, no distress, non-toxic HEAD: NC/AT EYE EXAM: normal conjunctiva, PERRL and EOM's grossly intact OROPHARYNX: no exudate, no erythema, lips, buccal mucosa, and tongue normal and mucous membranes are moist NECK: supple, no nuchal rigidity, no adenopathy, non-tender LUNGS: Clear to auscultation. Normal chest wall mechanics, no w/r/r HEART: no murmurs, S1 normal and S2 normal ABDOMEN: abdomen soft, non-tender, normo-active bowel sounds, no masses, no rebound or guarding. BACK: Back is symmetrical on inspection and there is no deformity, no midline tenderness, no CVA tenderness. No evidence of trauma. SKIN: no rashes and no bruising UPPER EXTREMITIES: upper extremities are grossly normal. Full range of motion, normal pulses, no evidence of trauma. LOWER EXTREMITIES: 3+ bilateral lower extremity edema. Chronic venous stasis changes to bilateral lower extremities. No deformities, no evidence of new trauma, full range of motion. NEURO EXAM: Normal sensorium, cranial nerves II-XII intact, normal speech, no weakness of arms, no weakness of legs. No drift. Finger to nose intact. Gross sensation intact. Medical Decision & Procedures ER Provider Diagnostic Interpretation: CT head: No ICH, mass-effect or edema. No evidence of acute cortical stroke. Periventricular small vessel ischemic change. Visualized sinuses and mastoid air cells are clear. Calvarium is intact. Radiologist: Carl Moura DO CT C-spine: No evidence of fracture or subluxation. There is moderate multilevel cervical spondylosis, more so at the C4 through C7 levels. Atherosclerosis at the carotid bulbs. Paravertebral soft tissues unremarkable. Radiologist: Carl Moura DO CTA chest: Moderate simple attenuating pericardial effusion. Cardiomegaly. Coronary artery calcifications. No evidence of thoracic aortic dissection or aneurysm. Small right greater than left pleural effusions. Subtle bibasilar groundglass opacities. May represent atelectasis, edema, or infectious process. No evidence of pneumothorax. Nonspecific mildly prominent pretracheal lymph node. No acute osseous abnormality. Radiologist: Carl Moura DO CTA other-abdomen/pelvis with bilateral lower extremity runoff: Large calcified gallstone in the gallbladder. No CT evidence of acute inflammation. Abnormal thickening and urothelial enhancement involving the right renal collecting system without hydronephrosis. Additionally there is a circumferential bladder wall thickening. Consider cystitis with ascending urinary tract infection. Correlate with urinalysis. Follow-up to ensure resolution. No intra-abdominal free air or free fluid. No evidence of solid organ laceration injury. Sigmoid diverticulosis without evidence of acute inflammation. Nonspecific right inguinal adenopathy. Surgical clips noted in the right groin region. Superficial varicosities in bilateral lower extremities. No evidence of arterial occlusion or significant flow-limiting stenosis. There is atherosclerosis throughout. Soft tissue calcifications in the lower extremities bilaterally, possibly dystrophic. Nonspecific soft tissue edema. No evidence of fracture dislocation. There are osseous degenerative changes. Radiologist: Carl Moura DO Laboratory Results Test 07/19/17 23:40 07/19/17 23:43 Urine Color YELLOW Urine Appearance TURBID (CLEAR) Urine pH 6.5 (4.5-7.5) Urine Specific [place] 1.011 (1.000-1.030) Urine Protein 1+ (NEG) Urine Glucose (UA) NEG (NEG) Urine Ketones NEG (NEG) Urine Occult Blood 2+ (NEG) Urine Nitrite NEG (NEG) Urine Bilirubin NEG (NEG) Urine Urobilinogen NEG (NEG) Urine Leukocyte Esterase LARGE (NEG) Urine WBC (Auto) >30 /hpf (0-5) Urine RBC (Auto) 0-4 /hpf (0-4) Urine Hyaline Casts (Auto) 0 /lpf (0-5) Urine Epithelial Cells (Auto) 5-10 /lpf (0-5) Urine Bacteria (Auto) 2+ (NEG) Urine Yeast (Auto) (NONE PRSENT) Estimated Average Glucose 174 mg/dl Hemoglobin A1c 7.7 % (4.5-5.6) Phosphorus Level 2.6 mg/dl (2.5-4.9) Magnesium Level 1.8 mg/dl (1.8-2.4) Total Bilirubin 1.1 mg/dl (0.2-1) Aspartate Amino Transf (AST/SGOT) 22 U/L (15-37) Alanine Aminotransferase (ALT/SGPT) 21 U/L (12-78) Alkaline Phosphatase 105 U/L (45-117) Pro-B-Type Natriuretic Peptide 2201 pg/ml (0-900) Total Protein 7.6 gm/dl (6.4-8.2) Albumin 3.5 gm/dl (3.4-5.0) Globulin 4.1 gm/dl (2.5-4.0) Albumin/Globulin Ratio 0.9 (0.9-2) Lipase 135 U/L (73-393) Thyroid Stimulating Hormone (TSH) 2.590 uIu/ml (0.300-4.500) Laboratory results per my review. Medications Administered Medications (Trade) Dose Ordered Sig/Jazmyne Route Start Time Stop Time Status Last Admin Dose Admin Potassium Chloride (Klor-Con M10) 40 meq NOW STAT PO 07/20/17 00:30 07/20/17 00:31 DC 07/20/17 01:29 40 MEQ Ceftriaxone Sodium (Rocephin Inj) 1 gm NOW STAT IV 07/20/17 00:50 07/20/17 00:51 DC 07/20/17 01:27 1 GM ECG Per My Interpretation Indication: weakness Rate (beats per minute): 85 Rhythm: atrial fibrillation Findings: Q waves (V2), T-wave inversion (2, 3, aVF, V6), other (normal axis) Comparison ECG Date: 16-Feb-2017 Change: no significant change ED Course 2310: The patient was evaluated in room C6. A complete history and physical exam was performed. 0119: Patient standing at bedside. Updated on results so far. Still awaiting CT results. 0200: Patient updated on additional CAT scan results. Patient with no symptoms at this time. Hemodynamically stable. Medical Decision Differential Diagnosis includes but is not limited to dehydration, stroke, anemia, hypoglycemia, hyponatremia, hypernatremia, urinary tract infection, pneumonia, bronchitis, sepsis, gastroenteritis, additional abdominal pathology, metabolic abnormalities and infections. Patient with complicated medical history and atypical presentation here. Patient denied any prodromal symptoms more suggestive of syncope related to recent falls. Patient's anxiety medication was recently increased, but he denied feeling more sleepy or tired, and described these falls as a spontaneous leg weakness. Patient found here to have an elevated troponin. The patient does have significant cardiac history and a decreased ejection fraction according to echo last year found in the EMR, he does not have chronically elevated troponins upon review of the EMR labs. Patient found to have a chronic pericardial effusion, and given lack of other symptoms including chest pain or trouble breathing, I do not feel this was contributing to his falls at this time. No other acute traumatic injury noted on imaging. Patient found to have bladder wall thickening and appearance of ascending UTI on CAT scan and given appearance of UTI on UA patient covered with a dose of IV Rocephin and specimen sent for culture. Patient with no prior history of recurrent UTIs or urinary retention. I do not suspect bacteremia/sepsis. Patient hemodynamically stable throughout. Patient with a rate controlled A. fib and chronically anticoagulated. Patient's INR is therapeutic. Doubt ACS, no sx and no ekg changes, possibly elevated trop related to infectious etiology vs worsening of cardiomyopathy. No evidence of PE, or other acute vascular pathology. No other evidence of additional infectious etiology. Head Trauma GCS Score: 15 Medication Reconcilliation Current Medication List: was personally reviewed by me Consults Time Called: 0200 Consulting Physician: Chanduisinger hospitalist Returned Call: [address] Courtney, [facility] hospitalist, for additional evaluation and treatment. Impression Primary Impression: Fall Additional Impressions: Elevated troponin UTI (urinary tract infection) Lower extremity weakness Anxiety Atrial fibrillation, chronic Scribe Attestation The scribe's documentation has been prepared under my direction and personally reviewed by me in its entirety. I confirm that the note above accurately reflects all work, treatment, procedures, and medical decision making performed by me. Departure Information Dispostion Being Evaluated By Hospitalist Referrals Delmer Gracia M.D. (PCP) Patient Instructions My [facility] Problem Qualifiers Primary Impression: Fall Encounter type: initial encounter Qualified Codes: W19.XXXA - Unspecified fall, initial encounter Additional Impressions: UTI (urinary tract infection) Urinary tract infection type: acute cystitis Hematuria presence: with hematuria Qualified Codes: N30.01 - Acute cystitis with hematuria Lower extremity weakness Laterality: bilateral Qualified Codes: R29.898 - Other symptoms and signs involving the musculoskeletal system
[2017-07-20] MEDS ORDERED: CEFTRIAXONE SOD INJ 1 GM ADDVIAL IV STA (00:50)
[2017-07-20] MEDS ORDERED: POTA10CA28 PO (00:57)
[2017-07-20] MEDS ORDERED: GABA-113 PO (01:01)
[2017-07-20] MEDS ORDERED: FLUO20CA35 PO (01:06)
[2017-07-20] MEDS ORDERED: FURO80TA63 PO (01:14)
[2017-07-20] MEDS ORDERED: OPTIRAY 320 IV PRN (01:45)
[2017-07-20] MEDS ORDERED: CALCIUM GLUCONATE 10% 1,000 MG in SODIUM CHLORIDE 0.9% 50ML 50 ML IV STA (02:58)
[2017-07-20] MEDS ORDERED: MAGNESIUM SULFATE 1GM / D5W 100 ML IV STA (02:59)
[2017-07-20] MEDS ORDERED: INSULIN ASPART 100 UNITS/ML 3 ML PEN SC ONE (02:59)
[2017-07-20] MEDS ORDERED: INSULIN GLARGINE SOLOSTAR 100 UNITS/ML 3 ML PEN SC ONE (02:59)
[2017-07-20] MEDS ORDERED: IV FLUIDS COMPLETED PRN (03:00)
[2017-07-20] MEDS ORDERED: GLUCOSE 40% GEL 15 GM TUBE PO PRN (03:00)
[2017-07-20] MEDS ORDERED: LORAZEPAM 2 MG/ML 1 ML VIAL IV PRN (03:00)
[2017-07-20] MEDS ORDERED: CARBOHYDRATES FOR HYPOGLYCEMIA PO PRN (03:00)
[2017-07-20] MEDS ORDERED: CLONAZEPAM 0.5 MG TAB PO PRN (03:00)
[2017-07-20] MEDS ORDERED: NITROGLYCERIN 0.4 MG SL PER TAB CHARGE SL PRN (03:00)
[2017-07-20] MEDS ORDERED: TRAMADOL HCL 50 MG TAB PO PRN (03:00)
[2017-07-20] MEDS ORDERED: PROCHLORPERAZINE INJ 5 MG in SYRINGE 4 ML IV PRN (03:00)
[2017-07-20] MEDS ORDERED: GLUCAGON FOR INJ 1 MG VIAL SQ PRN (03:00)
[2017-07-20] MEDS ORDERED: ACETAMINOPHEN 325 MG TAB PO PRN (03:00)
[2017-07-20] MEDS ORDERED: GLUCOSE 10 TABS/TUBE PO PRN (03:00)
[2017-07-20] MEDS ORDERED: DEXTROSE 50% 50 ML SYR IV PRN (03:00)
[2017-07-20 04:06] LABS: BASO % 0.3 %; BASO ABS # 0.02 K/uL (0-0.2); EOS % 1.9 %; EOS ABS # 0.13 K/uL (0-0.5); HEMATOCRIT 41.6 % (42-52); IG# 0.01 K/uL (0.00-0.02); LYMPH % 13.3 %; LYMPH ABS # 0.93 K/uL (1.2-3.4); MEAN CORPUSCULAR HGB CONC 33.7 g/dl (32-36); MEAN PLATELET VOLUME 9.3 fL (7.4-10.4); MONO % 15.7 %; NEUT % 68.7 %; PLATELET COUNT 164 K/uL (130-400); RED CELL DISTRIBUTION WIDTH CV 15.5 % (11.5-14.5); RED CELL DISTRIBUTION WIDTH SD 53.1 fL (36.4-46.3); WHITE BLOOD COUNT 6.99 K/uL (4.8-10.8)
[2017-07-20 04:25] LABS: CALCIUM 8.7 mg/dl (8.5-10.1); CREATININE 0.91 mg/dl (0.60-1.40); POTASSIUM 3.5 mmol/L (3.5-5.1)
[2017-07-20] MEDS ORDERED: WARFARIN SOD 2.5 MG TAB PO STA (05:33)
--- NOTE | 2017-07-20 06:33 | DIAGNOSTIC IMAGING REPORT ---
HEAD WITHOUT CONTRAST (CT) CT DOSE: 1092.57 mGy.cm HISTORY: Trauma. Mental status change. fall, head injury TECHNIQUE: Multiaxial CT images of the head were performed without the use of intravenous contrast. A dose lowering technique was utilized adhering to the principles of ALARA. Comparison: None. Findings: The paranasal sinuses and mastoid air cells are clear. The calvarium and skull base are intact. The ventricles and sulci are within normal limits. There is no mass, hematoma, midline shift, or acute infarct. Impression: No acute intracranial abnormality. Mild chronic small vessel change of aging The above report was generated using voice recognition software. It may contain grammatical, syntax or spelling errors. Electronically signed by: Delmer Woodward M.D. 07/20/2017 6:32 AM Dictated Date/Time: 07/20/2017 6:31 AM
--- NOTE | 2017-07-20 06:36 | DIAGNOSTIC IMAGING REPORT ---
CERVICAL SPINE W/O CT DOSE: HISTORY: Trauma fall TECHNIQUE: Multiaxial CT images of the cervical spine were performed and reformatted in the sagittal and coronal plane without the use of contrast. A dose lowering technique was utilized adhering to the principles of ALARA. COMPARISON: 10/03/2016 FINDINGS: No fractures. No subluxation. Prevertebral soft tissues and the C1-C2 interval are intact. No pneumothorax. Moderate degenerative disc change from C4 through T1 IMPRESSION: No fractures within the cervical spine. Moderate degenerative change The above report was generated using voice recognition software. It may contain grammatical, syntax or spelling errors. Electronically signed by: Delmer Woodward M.D. 07/20/2017 6:35 AM Dictated Date/Time: 07/20/2017 6:32 AM
--- NOTE | 2017-07-20 06:38 | DIAGNOSTIC IMAGING REPORT ---
Study: CT angiography of the chest HISTORY: Trauma. Weakness. Chest pain. FINDINGS: Minimal atherosclerotic change thoracic aorta. No evidence for aneurysm or dissection. Moderate pericardial effusion. Small bilateral pleural effusions. Mild dependent basilar atelectatic change. Lungs otherwise are clear. Pulmonary vasculature enhances appropriately. IMPRESSION: Moderate cardiomegaly with findings of a moderate pericardial effusion. 2. Small bilateral pleural effusions. 3. Negative thoracic aorta. 4. Study is negative for pulmonary embolus. Electronically signed by: Delmer Woodward M.D. 07/20/2017 6:37 AM Dictated Date/Time: 07/20/2017 6:35 AM
--- NOTE | 2017-07-20 06:40 | HISTORY & PHYSICAL EXAMINATION ---
DATE OF ADMISSION: 07/20/2017 PRIMARY CARE PHYSICIAN: Delmer Gracia MD CHIEF COMPLAINT: Chest pain. HISTORY OF PRESENT ILLNESS: History obtained from the patient, , and records. Medical history is significant for chronic systolic heart failure secondary to ischemic cardiomyopathy, EF of 25%-30% from a 2D echo January 2017, history of CAD status post stenting, AFib on Coumadin, hypertension, DM2 on oral meds, sleep apnea on CPAP, anxiety, mood disorder, chronic anemia (baseline hemoglobin of 13), history of chronic venous insufficiency status post ablation. Recent confinement, January 2017 for pneumonia and chest pain. A 2D echo at that time showed severe LV dysfunction, EF 25%, biatrial enlargement, moderate AR, moderate MR, moderate TR, severe pulmonary hypertension, small to moderate pericardial effusion without tamponade physiology. Patient has been dealing with anxiety for the last few months. Stressor could not be identified. He was at his psychiatrist's office few days ago. Patient instructed to increase p.r.n. Clonazepam dosing from 0.25 b.i.d. to 0.5 b.i.d. as needed for anxiety. Patient misunderstood dosing to be 1 mg twice daily RTC. Patient noted to be sleepy, restless by his subsequently. Yesterday, patient had 2 episodes where his left leg gave out causing him to fall. No leg pain. Patient not sure if he passed out. No tongue biting, no incontinence, no head trauma. No chest pain, no shortness of breath. Today, patient was with his spouse when he had another falling episode, a little sleepy. No bladder discomfort. Brought to the Emergency Room. Patient given Ceftriaxone at the ER for possible UTI. MEDICAL HISTORY: As above. SURGERIES: He has had bowel surgery, vascular procedures. HOME MEDICATIONS: Include Lipitor, aspirin, buspirone, Klonopin, digoxin, Lasix, Prozac, glimepiride, metformin, Toprol-XL, Micro-K, Coumadin. ALLERGIES: CODEINE, SIMVASTATIN, PENICILLIN. FAMILY HISTORY: There is a family history of heart disease. PERSONAL AND SOCIAL HISTORY: Nonsmoker. Retired [employer]. No ETOH abuse. REVIEW OF SYSTEMS: As per HPI. All 10 systems reviewed. All other ROS negative. PHYSICAL EXAMINATION: VITAL SIGNS: Blood pressure was noted to be 126/72 W[place] 88 RR 20 T 36.7 O2 sats 94_ on room air. GENERAL: Noted to be anxious, obese, no respiratory distress. SKIN: normal color, warm. HEENT: [place] palpebral conjunctivae. conjunctivitis, R, no discharge (from being tired as per patient), dry mucosa. NECK: Short, supple. CHEST: Decreased breath sounds. No tenderness. HEART: Irregular, systolic murmur, diminished S1, S2. ABDOMEN: Soft, nontender. Healed incisional scar. EXTREMITIES: Minimal LE edema. No tenderness. Some stasis. No other gross deformity NEUROLOGIC: Coherent, no gross focality. LABS: Hemoglobin 13.8, hematocrit 40, white cell 5.6, platelets 153. Sodium 137, potassium 3.2, C02 24. BUN 11, creatinine 0.9, glucose 182. Troponin 0.07. BNP 2201. EKG as per my interpretation, rate 85, AFib, low voltage, inferior lateral ST depression. CT head initial read, no acute pathology. CT of abdomen and pelvis, calcified gallbladder stone, no inflammation. CTA of chest initial read, moderate pericardial effusion, cardiomegaly, coronary calcifications. CT of cervical spine, atherosclerosis. UA WBC est positive, occult blood. epithelial cells Hemoglobin A1c August 2016 was to 6.9. ASSESSMENT: 1. Recurrent falls rule out syncopal event possibly from inadvertent home Klonopin overdosage for uncontrolled anxiety ro arrhythmia, orthostasis. 2. Chronic ischemic systolic heart failure secondary to ischemic cardiomyopathy minimal signs of volume overload sans symptoms 3. Chronic pericardial effusion. 4. hx CAD sp stenting 5. Asymptomatic troponin elevation 6. chronic anemia, hemoglobin at baseline. 7. Atrial fibrillation, rate controlled, on Coumadin. INR therapeutic. 8. Asymptomatic pyuria Contaminated specimen no sepsis. 9. DM2 on oral meds, well controlled as of outpatient hemoglobin A1c from last year. 10. Hypokalemia secondary to diuretic therapy. 11. Chronic anemia, hemoglobin at baseline PLAN: Observation PCU Check orthostatic vitals 2D echo follow up study for pericardial effusion. Cardiology consult RE persistent pericardial effusion. continue home diuretic therapy if orthostatic vitals negative replace electrolytes. Klonopin as needed home dosing prescribed by patient's psychiatrist of 0.5 mg p.o. BID PRN anxiety clarified with the patient and spouse. Inpatient Psych evaluation for anxiety as per patient/ request. Hold antibiotics for asymptomatic pyuria for now. ISS BG goal 140-180. Check hemoglobin A1c DVT prophylaxis.Coumadin INR 2-3. Full code. MTDD
[2017-07-20 06:52] LABS: HEMOGLOBIN A1C 7.7 % (4.5-5.6)
--- NOTE | 2017-07-20 07:46 | DIAGNOSTIC IMAGING REPORT ---
CT ANGIOGRAPHY OF THE ABDOMEN AND PELVIS WITH CONTRAST WITH BILATERAL LOWER EXTREMITY RUNOFF CLINICAL HISTORY: Fall. Syncope. Leg weakness. COMPARISON STUDY: No previous studies for comparison. TECHNIQUE: Helical axial images of the abdomen, pelvis and the lower extremities were obtained during arterial phase following intravenous injection of 94 cc Optiray 320 IV. Sagittal and coronal reconstructed reviewed as well as maximal intensity projections on an independent 3-D workstation. FINDINGS: The chest CT will be reported separately. Marked cardiomegaly is noted with a moderate sized low attenuation pericardial effusion. Arterial phase images of the liver, spleen, adrenal glands and pancreas are unremarkable. There is a gallstone within the gallbladder. The left kidney is normal. There is mild right collecting system dilatation. There is wall thickening of the bladder, distal right ureter as well as the right renal collecting system. There is apparent hyperdense material within the collecting system. The right nephrogram may be slightly delayed. No definite ureteral calculus is identified. A possible tiny distal right ureteral calculus is probably artifactual. There is no evidence for a bowel obstruction. There is colonic diverticulosis without evidence for acute diverticulitis. No hemoperitoneum or pneumoperitoneum is present. Right groin and lower extremity collaterals are noted. A left first metatarsophalangeal arthroplasty is noted. A gallstone is noted within the gallbladder. The caliber of the abdominal aorta is normal. There is moderate stenosis at the origin of the celiac axis and severe stenosis at the origin the right renal artery. There is moderate plaque within the superior mesenteric artery with mild stenosis. Left renal artery is patent. The bilateral common iliac, external iliac and superficial femoral arteries are patent. There is extensive calcified plaque throughout the calf vessels which makes evaluation for stenosis difficult. The right dorsalis pedis is likely occluded. The right posterior tibial artery is patent. The left dorsalis pedis is patent as is the left posterior tibial artery. Lower extremity subcutaneous edema is noted. IMPRESSION: 1. Extensive atherosclerotic plaque with severe stenosis at the origin of the right renal artery and moderate stenosis at the origin of the celiac axis. No abdominal aortic aneurysm or dissection. 2. No stenosis of the bilateral common iliac, external iliac, common femoral or superficial femoral arteries. Extensive plaque within the bilateral calf vessels makes evaluation for stenosis within these small vessels difficult. However, bilateral anterior tibial, posterior tibial and peroneal arteries are likely patent. Probable occlusion of the distal right dorsalis pedis. 3. Mild right collecting system dilatation with urothelial thickening within the right collecting system and bladder. This favors an infectious process and could be correlated with urinalysis. Equivocal tiny distal right ureteral calculus is likely artifactual. Hemorrhage within the collecting system could appear similar although is considered less likely. A follow-up CT of the abdomen and pelvis in one month to ensure resolution is recommended to exclude the less likely possibility of neoplasm. 4. Cholelithiasis. 5. Colonic diverticulosis evidence for acute diverticulitis. Discussed with Dr. Le at time of dictation. Electronically signed by: Jefferson Hyatt M.D. 07/20/2017 7:44 AM Dictated Date/Time: 07/20/2017 7:14 AM
[2017-07-20] MEDS: ASPIRIN 81 MG CHEW PO SCH (08:13)
[2017-07-20] MEDS: METOPROLOL SUCC 50MG EXT REL TAB PO SCH ×2 (08:13→21:31)
[2017-07-20] MEDS: POTASSIUM CHLORIDE 10 MEQ TABCR PO SCH (08:13)
[2017-07-20] MEDS: FUROSEMIDE 80 MG TAB PO SCH ×2 (08:14→21:26)
[2017-07-20] MEDS: FLUOXETINE HCL 20 MG CAP PO SCH (08:15)
[2017-07-20] MEDS: INSULIN ASPART 100 UNITS/ML 3 ML PEN SC SCH ×4 (08:20→21:30)
--- NOTE | 2017-07-20 12:12 | Psychiatric Consultation ---
Consultation Date of Consultation July 20, 2017. Identifying Data 66 yo male admitted having a recent series of falls. We are consulted to evaluate anxiety. Information is gathered from the patient, the EHR and OP psychiatry notes. All are considered to be reliable. Chief Complaint "My leg went numb. ". History of Present Illness The patient is a 66 yo male with the below listed medical conditions, who reports that over the last several months he has had at least 4 falls. He says that they were all similar in nature: denies dizziness or room spinning, sense of fogginess upon standing, changes to vision/hearing/speech, aura, anxiety at the time of the event, pain. He describes one event in which he was sitting in his chair watching TV. He got up to answer the phone, and when he reached the phone he felt like his left leg suddenly went numb and it collapsed under him resulting in his body spinning around during the fall, hitting his head on the coffee table, and then again when he hit the floor. He reports 3 falls in the last 2 days. Toby also reports a 3-4 month history of anxiety, currently in treatment with Dr. Calix at [facility]. He is currently on Buspar, Prozac and Klonopin. His anxiety emerged suddenly several months ago, without clear precipitant. 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 He otherwise denies any stressors including relationship or financial. He indicates that his aniety is a little better on his current meds, but still present. He describes it as a restlessness, that makes him want to move and keep doing things. He also endorses panic attacks, without triggers or clear pattern. His mood in recent weeks has been "mostly good". His sleep has been disturbed with difficulty falling asleep because he can't calm his mind. His appetite is "variable", as is his weight. He denies aud/vis hallucinations, denies any symptoms that would be congruent with a bipolar disorder. He denies SI. Past Psychiatric History Current OP Treatment: psychiatrist (Dr. Calix) Prior OP Treatment: therapist Prior Psych Hospitalizations: none Suicide Attempts: No Past Medication Trials None Past Medical/Surgical History (1) Bilateral lower extremity edema (2) Fall (3) Lower extremity weakness (4) CAD (coronary artery disease) (5) Diabetes mellitus type II, controlled (6) Atrial fibrillation, chronic (7) ANTOINETTE on CPAP (8) HTN (hypertension) (9) Dyslipidemia (10) Systolic CHF Allergies Allergies: Coded Allergies: Penicillins (Verified Allergy, Unknown, childhood reaction, 05/04/17) Codeine (Verified Adverse Reaction, Unknown, NAUSEA, LIGHTHEADEDNESS, ) Simvastatin (Verified Adverse Reaction, Unknown, makes him feel like he is high, 02/16/17) Home Medications Scheduled Aspirin (Aspirin 81 Low Dose), 81 MG PO QAM Atorvastatin (Lipitor), 40 MG PO QPM Buspirone Hcl (Buspirone Hcl), 7.5 MG PO BID Clonazepam (Klonopin), 0.5 MG PO BID Digoxin (Digoxin), 0.25 MG PO QAM Fluoxetine (Prozac), 40 MG PO BID Furosemide (Lasix), 80 MG PO BID Glimepiride (Glimepiride), 2 MG PO DAILY Glimepiride (Glimepiride), 4 MG PO DAILY Metformin HCl (Metformin HCl ER), 500 MG PO BID Metoprolol Succ (Toprol Xl) (Toprol-Xl ), 100 MG PO BID Potassium Chloride (Micro-K Ext Rel), 10 MEQ PO DAILY Warfarin Sodium (Warfarin Sodium), 5 MG PO WK Warfarin Sodium (Warfarin Sodium), 2.5 MG PO [id number] Family History Diabetes mellitus FH: cancer FH: heart disease Hypertension History of Suicide: No History of Substance Abuse: Yes (Mothers side, alcohol) Psychiatric History: No Alcohol Use Alcohol Use In Past 12 Months: No Smoking Use Smoking Status: Unknown if Ever Smoked Substance History denies Personal History Lives in: [place] Childhood: Grew up locally Education: graduated from high school Work History: retired [employer] Relationship History: Children: None Legal History: none Review of Systems Constitutional: other (anxiety) Eyes: denies: no symptoms, as stated in HPI, eye pain, tearing, itching, redness, discharge, double vision, visual changes, blurred vision, photophobia, other ENT: denies: no symptoms reported, see HPI, ear pain, ear discharge, loss of hearing, tinnitus, nasal pain, nasal congestion, rhinorrhea, epistaxis, sore throat, stidor, throat swelling, mouth pain, mouth swelling, dental pain, gum swelling, other Cardiovascular: reports: palpitations (with panic) Respiratory: reports: short of breath (with anxiety) Gastrointestinal: denies no symptoms reported, denies see HPI, denies abdominal pain, denies constipation, denies diarrhea, denies nausea, denies vomiting, denies other Genitourinary - Male: denies: no symptoms, see HPI, rash, amenorrhea, penile itching, penile discharge, testicular pain, testicular swelling, impotence, other Musculoskeletal: denies no symptoms reported, denies see HPI, denies back pain , denies gout, denies joint pain, denies joint swelling, denies muscle pain, denies muscle stiffness, denies neck pain, denies other Integumentary: denies no symptoms reported, denies see HPI, denies change in color, denies change in hair/nails, denies dryness, denies lesions, denies lumps , denies rash, denies other Neurologic: reports: other (leg numbness resolved) Endocrine: denies: no symptoms, as stated in HPI, cold intolerance, heat intolerance, hair changes, goiter, polydipsia, polyuria, skin changes, other Hematologic / Lymphatic: denies: no symptoms, as stated in HPI, abnormal clotting, adenopathy, anemia, easy bleeding, easy bruising, gums bleeding, petechiae, other Examination Vital Signs Vital Signs Past 12 Hours Date Time Temp Pulse Resp B/P (MAP) Pulse Ox O2 Delivery O2 Flow Rate FiO2 07/20/17 11:23 36.7 58 18 137/76 (96) 96 Room Air 07/20/17 07:54 Room Air 07/20/17 07:32 36.4 89 18 133/77 (95) 93 Room Air 07/20/17 04:13 73 153/71 (98) 83 148/84 (105) 71 147/83 (104) 07/20/17 04:00 Room Air 07/20/17 03:30 36.6 70 20 128/69 93 Room Air 07/20/17 02:56 84 20 123/74 97 07/20/17 01:33 91 20 123/74 97 Room Air 07/20/17 00:02 78 22 126/70 94 Room Air Laboratory Results Last 24 Hours Test 07/19/17 23:40 07/19/17 23:43 07/20/17 02:30 07/20/17 03:28 Urine Color YELLOW Urine Appearance TURBID Urine pH 6.5 Urine Specific [place] 1.011 Urine Protein 1+ Urine Glucose (UA) NEG Urine Ketones NEG Urine Occult Blood 2+ Urine Nitrite NEG Urine Bilirubin NEG Urine Urobilinogen NEG Urine Leukocyte Esterase LARGE Urine WBC (Auto) >30 /hpf Urine RBC (Auto) 0-4 /hpf Urine Hyaline Casts (Auto) 0 /lpf Urine Epithelial Cells (Auto) 5-10 /lpf Urine Bacteria (Auto) 2+ Urine Yeast (Auto) White Blood Count 5.69 K/uL 6.99 K/uL Red Blood Count 4.33 M/uL 4.38 M/uL Hemoglobin 13.8 g/dL 14.0 g/dL Hematocrit 40.7 % 41.6 % Mean Corpuscular Volume 94.0 fL 95.0 fL Mean Corpuscular Hemoglobin 31.9 pg 32.0 pg Mean Corpuscular Hemoglobin Concent 33.9 g/dl 33.7 g/dl Platelet Count 153 K/uL 164 K/uL Mean Platelet Volume 9.0 fL 9.3 fL Neutrophils (%) (Auto) 70.7 % 68.7 % Lymphocytes (%) (Auto) 13.7 % 13.3 % Monocytes (%) (Auto) 13.4 % 15.7 % Eosinophils (%) (Auto) 1.8 % 1.9 % Basophils (%) (Auto) 0.2 % 0.3 % Neutrophils # (Auto) 4.03 K/uL 4.80 K/uL Lymphocytes # (Auto) 0.78 K/uL 0.93 K/uL Monocytes # (Auto) 0.76 K/uL 1.10 K/uL Eosinophils # (Auto) 0.10 K/uL 0.13 K/uL Basophils # (Auto) 0.01 K/uL 0.02 K/uL RDW Standard Deviation 53.2 fL 53.1 fL RDW Coefficient of Variation 15.5 % 15.5 % Immature Granulocyte % (Auto) 0.2 % 0.1 % Immature Granulocyte # (Auto) 0.01 K/uL 0.01 K/uL Prothrombin Time 21.0 SECONDS 21.0 SECONDS Prothromb Time International Ratio 2.0 2.0 Sodium Level 138 mmol/L 135 mmol/L Potassium Level 3.2 mmol/L 3.5 mmol/L Chloride Level 98 mmol/L 96 mmol/L Carbon Dioxide Level 34 mmol/L 37 mmol/L Anion Gap 6.0 mmol/L 2.0 mmol/L Blood Urea Nitrogen 11 mg/dl 11 mg/dl Creatinine 0.94 mg/dl 0.91 mg/dl Est Creatinine Clear Calc Drug Dose 90.8 ml/min 93.8 ml/min Estimated GFR () 97.5 101.4 Estimated GFR (Non- 84.2 87.5 BUN/Creatinine Ratio 11.9 12.1 Random Glucose 182 mg/dl 128 mg/dl Estimated Average Glucose 174 mg/dl Hemoglobin A1c 7.7 % Calcium Level 8.2 mg/dl 8.7 mg/dl Phosphorus Level 2.6 mg/dl Magnesium Level 1.8 mg/dl Total Bilirubin 1.1 mg/dl Aspartate Amino Transf (AST/SGOT) 22 U/L Alanine Aminotransferase (ALT/SGPT) 21 U/L Alkaline Phosphatase 105 U/L Troponin I 0.071 ng/ml 0.070 ng/ml Pro-B-Type Natriuretic Peptide 2201 pg/ml Total Protein 7.6 gm/dl Albumin 3.5 gm/dl Globulin 4.1 gm/dl Albumin/Globulin Ratio 0.9 Lipase 135 U/L Thyroid Stimulating Hormone (TSH) 2.590 uIu/ml Digoxin Level 1.1 ng/ml Total Creatine Kinase 86 U/L Test 07/20/17 03:29 07/20/17 07:28 Bedside Glucose 130 mg/dl 129 mg/dl Mental Examination During interview pt is: alert and oriented, cooperative Appearance: appropriately groomed Eye contact is: good Motor behavior is: no abnormal motor movements Speech: normal in rate, rhythm & volume Affect: flat Mood is: depressed, anxious Thought process: goal directed Thought content: reality based without delusions Suicidal thought are: denied Homicidal thoughts are: denied Hallucinations: denies auditory, denies visual Cognition: memory grossly intact, attention grossly intact, language grossly intact Intelligence estimated to be: average Insight: good Judgement: good Impression / Recommendations Impression 66 yo male admitted medically with recent falls that he attributes to left leg numbness. Although his klonopin was just increased 2 weeks ago, he says that the fall/numbness began prior to the increase. He denies acute stressors presently. Although we can't rule out the BZD may have contributed, his orthostatics are WNL, and he denies dizziness. We also can't rule out that the symptom is anxiety related, but we also can't call it a conversion symptom until all organic causes have been ruled out. For now we will encourage that he minimize the use of Klonopin, and I will take the liberty of moving his OP psychiatric appt up to 07/26/[address] Calix. I would continue his current medication regimen. Inventory Assets Strengths: Good marriage, good OP care Risk Factors Assessment Male: Yes : Yes /single/: No Higher / Fall in social status: No Health problems: Yes Mental Health Diagnoses: Yes Substance use disorders: No Previous attempt: No Previous psychiatric stay: No Hopelessness: No Smoker: No Protective Factors Assessment : Yes Responsible for young children: No Employed: No Stable relationships: Yes Supportive family: Yes Good rapport with provider: Yes Recommendations (1) Panic disorder 5/3 - Continue current meds - Discourage the use of Klonopin for the immediate future - I have moved his OP psychiatric appt up to 07/26/17 at 1140 - Does not meet criteria for inpatient care. (2) Major depressive disorder, recurrent, moderate 5/3 - See above Dr. Charisse Morales has personally been involved in the review of this case and development of recommendations.
--- NOTE | 2017-07-20 14:18 | CARDIOLOGY CONSULTATION ---
DATE OF CONSULTATION: 07/20/2017 PERTINENT HISTORY: Mr. Smith is a 66-year-old white male well known to me from the outpatient setting. He was admitted earlier today after a fall. This consultation was ordered because of his chronic pericardial effusion. The patient was in his usual state of health until several months ago. He has been having difficulty with anxiety and is being evaluated by a psychiatrist. Recently, the patient's clonazepam was to increase from 0.25 mg b.i.d. to 0.5 mg b.i.d. Unfortunately, the patient misunderstood and began taking clonazepam 1 mg b.i.d. He has been noted to be quite lethargic and experienced a fall prompting evaluation in the Emergency Room. There was no levi syncope according to his report. The patient has a longstanding history of coronary artery disease. He had LAD stents placed in 1994 and again in 1996 at the time of an acute anterior wall myocardial infarction. The patient did well until August 2007 when he presented with acute coronary syndrome. He had 2 bare metal stents placed at that time, 1 in the RCA, and another in the LAD. The patient also carries a history of ischemic cardiomyopathy. His most recent echocardiogram noted an ejection fraction of 25-30% back in January. There was an anteroapical wall motion abnormality. The patient has been well compensated in terms of his congestive failure. He knows to follow daily weights at home and uses sliding scale diuretics. The patient also has a known chronic small pericardial effusion. He was scheduled for repeat echocardiogram and an appointment with me for later this month. Currently, the patient is resting comfortably in bed without complaints. PAST MEDICAL HISTORY: 1. Coronary artery disease - see above. 2. Ischemic cardiomyopathy - 25-30% - January 2017. 3. Chronic combined CHF. 4. Paroxysmal atrial fibrillation. 5. Chronic pericardial effusion. 6. Chronic venous insufficiency. 7. Diabetes mellitus. 8. Obstructive sleep apnea. 9. DJD. 10. Right great toe replacement. 11. Right colectomy - November 2008. 12. Multiple benign polyps - November 2008. 13. Anxiety/depression. MEDICATIONS: 1. Metoprolol succinate 100 mg b.i.d. 2. Lasix 80 mg b.i.d. 3. Potassium 20 mEq daily. 4. Digoxin 0.25 mg daily. 5. Atorvastatin 40 mg at bedtime. 6. Aspirin 81 mg per day. 7. Warfarin - on hold. 8. Lantus insulin 5 units subQ daily. 9. Buspirone 7.5 mg b.i.d. 10. Prozac 40 mg daily. ALLERGIES: 1. CODEINE. 2. PENICILLIN. 3. SIMVASTATIN. SOCIAL HISTORY: The patient is and lives with his . 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 Denies tobacco or alcohol. FAMILY HISTORY: No early coronary artery disease. REVIEW OF SYSTEMS: A 10-point review of systems was negative except for that described above. PHYSICAL EXAMINATION: GENERAL: Well-developed, well-nourished white male, in no acute distress. VITAL SIGNS: Blood pressure 137/76 with a regular pulse of 58, respiratory rate is 18. The patient is afebrile at 36.7 degrees Celsius. Saturations 96% on room air. HEENT: Negative. NECK: Supple with full carotid upstrokes. There are no carotid bruits. Jugular venous pressure is flat at 90 degrees. There is no thyromegaly. CARDIOVASCULAR: Reveals an irregularly irregular rhythm with distant heart sounds. No obvious murmurs. No S3 or S4. LUNGS: Clear without rales, rhonchi, or wheeze. ABDOMEN: Obese without bruits. EXTREMITIES: Reveal intact radial artery pulses bilaterally. There is no peripheral edema. LABORATORY DATA: CBC notes hemoglobin 14.0, hematocrit 41.6, white count 6.9, platelet count 164,000. Electrolytes note a sodium of 135, potassium 3.5, chloride 96, bicarb 37, BUN 11, creatinine 0.9, glucose 128. Troponin I level is 0.071 with followup value of 0.07. INR is 2.0. Digoxin level is 1.1. EKG notes atrial fibrillation with a controlled ventricular response. There is low-voltage noted and evidence of an old septal infarction. Nonspecific ST and T-wave abnormality noted. CT of the chest notes no evidence of dissection or pulmonary embolism. IMPRESSION: Mr. Smith was admitted earlier today after a fall. This most likely occurred as he was taking more than double the amount of clonazepam that was prescribed. No evidence of levi syncope according to his report. His mildly elevated troponin level is noted. This is of no clinical concern. EKG shows no ischemic changes and is unchanged from one done in 02/16/2017. The patient has a known chronic pericardial effusion. He is set up for an echocardiogram and followup visit in my office later this month. PLAN: 1. Continue usual cardiac medications as you are. 2. Ambulate in the hallways. 3. Echocardiogram and followup visit already scheduled as an outpatient for later this month. 4. Further recommendations pending his clinical course.
[2017-07-20] MEDS: DIGOXIN 0.25 MG TAB PO SCH (16:18)
--- NOTE | 2017-07-20 18:31 | ECHOCARDIOGRAM REPORT ---
*NOTICE TO RECEIVING CONSTITUTION PARTY AGENCY This information is strictly Confidential and protected under [place] law. [place] law prohibits you from making any further disclosure of this information unless further disclosure is expressly permitted by the written consent of the person to whom it pertains or is authorized by law. A general authorization for the release of medical or other information is not sufficient for this purpose. Hospital accepts no responsibility if the information is made available to any other person, INCLUDING THE PATIENT. Interpretation Summary * Name: EUSEBIA HOWE JR Study Date: 07/20/2017 02:52 PM BP: 137/76 mmHg * Patient Location: [facility]\S\N280\S\1 HR: 58 * : 1950 (M/d/yyyy) Gender: Male Height: 68 in * Age: 66 yrs Ethnicity: CA Weight: 231 lb * Ordering Physician: Dylan Presley * Performed By: Dorothy Montelongo RDCS * * Reason For Study: PERICARDIAL DISEASE * BSA: 2.2 m2 * -- Conclusions -- * 1.Mildly dilated left ventricle with severely reduced systolic function. EF 25-30%. Akinesis of the mid to distal septum, mid to distal inferior wall, mid to distal lateral wall, apex, and distal anterior wall segments. Otherwise, global hypokinesis. Severe concentric left ventricular hypertrophy. Tissue Doppler suggests elevated left atrial pressure. * 2. Severe biatrial dilation. * 3. Mild aortic regurgitation. * 4. At least moderate mitral regurgitation. * 5. Moderately elevated right ventricular systolic pressure; 51 mmHg. * 6. Moderate pericardial effusion without echocardiographic evidence of tamponade physiology. The pericardial effusion appears large posteriorly. * 7. Compared to prior study on 02/11/2017, RVSP is now moderately elevated, while severely elevated on last study. Procedure Details * A complete two-dimensional transthoracic echocardiogram was performed (2D, M-mode, Doppler and color flow Doppler). Left Ventricle * Mildly dilated left ventricle with severely reduced systolic function. EF 25-30%. Akinesis of the mid to distal septum, mid to distal inferior wall, mid to distal lateral wall, apex, and distal anterior wall segments. Otherwise, global hypokinesis. Severe concentric left ventricular hypertrophy. Tissue Doppler suggests elevated left atrial pressure. Right Ventricle * The right ventricle is not well visualized. * The right ventricular systolic function is reduced as assessed by tricuspid annular plane systolic excursion (TAPSE) (TAPSE <1.6 cm). Atria * The left atrium is severely dilated. * The right atrium is severely dilated. Mitral Valve * The mitral valve leaflets appear thickened, but open well. * There is no mitral valve stenosis. * At least moderate mitral regurgitation. Tricuspid Valve * The tricuspid valve is not well visualized, but is grossly normal. * There is no tricuspid stenosis. * There is mild tricuspid regurgitation. Aortic Valve * The aortic valve is trileaflet. * No hemodynamically significant valvular aortic stenosis. * Mild aortic regurgitation. Pulmonic Valve * The pulmonary valve is inadequately visualized, but the Doppler data is adequate for interpretation. * There is no pulmonic valvular stenosis. * Mild to moderate pulmonic valvular regurgitation. Great Vessels * The aortic root is normal size. * Ascending aorta of normal dimension Pericardium/Pleural * Moderate pericardial effusion without echocardiographic evidence of tamponade physiology. The pericardial effusion appears large posteriorly. Great Vessels * Dilated IVC with normal inspiratory collapse. MMode 2D Measurements and Calculations IVSd 1.8 cm LVIDd 5.3 cm LVIDs 4.2 cm LVPWd 1.7 cm IVS/LVPW 1.0 FS 21.8 % EDV(Teich) 136.0 ml ESV(Teich) 76.4 ml EF(Teich) 43.8 % EDV(cubed) 149.8 ml ESV(cubed) 71.5 ml EF(cubed) 52.3 % LV mass(C)d 445.5 grams LV mass(C)dI 205.0 grams/m\S\2 SV(Teich) 59.6 ml SI(Teich) 27.4 ml/m\S\2 SV(cubed) 78.3 ml SI(cubed) 36.0 ml/m\S\2 EPSS 1.4 cm Ao root diam 3.4 cm Ao root area 9.1 cm\S\2 ACS 1.3 cm LA dimension 5.6 cm asc Aorta Diam 3.3 cm LA/Ao 1.6 LVOT diam 2.2 cm LVOT area 3.8 cm\S\2 LVAd ap4 41.1 cm\S\2 LVLd ap4 9.5 cm EDV(MOD-sp4) 146.5 ml EDV(sp4-el) 151.1 ml LVAs ap4 33.8 cm\S\2 LVLs ap4 8.9 cm ESV(MOD-sp4) 103.7 ml ESV(sp4-el) 109.5 ml EF(MOD-sp4) 29.2 % EF(sp4-el) 27.5 % SV(MOD-sp4) 42.8 ml SI(MOD-sp4) 19.7 ml/m\S\2 SV(sp4-el) 41.6 ml SI(sp4-el) 19.1 ml/m\S\2 Doppler Measurements and Calculations MV E max anna marie 138.3 cm/sec MV dec time 0.14 sec Ao V2 max 121.3 cm/sec Ao max PG 5.9 mmHg Ao max PG (full) 4.3 mmHg SIMÓN(V,A) 1.9 cm\S\2 SIMÓN(V,D) 1.9 cm\S\2 AI max anna marie 421.3 cm/sec AI max PG 71.0 mmHg AI dec slope 176.9 cm/sec\S\2 AI P1/2t 697.7 msec LV V1 max PG 1.6 mmHg LV V1 max 62.3 cm/sec PA V2 max 58.8 cm/sec PA max PG 1.4 mmHg PI end-d anna marie 166.5 cm/sec TR max anna marie 325.1 cm/sec RVSP(TR) 50.5 mmHg RAP systole 8.0 mmHg
--- NOTE | 2017-07-20 18:46 | Progress Note ---
Progress Note Date of Service July 20, 2017. Progress Note Subjective: Patient has been walking without obvious episodes of weakness. Denies shortness of breath or chest discomfort PHYSICAL EXAMINATION: GENERAL: no distress. NECK: no JVD CHEST: fair air entry, no wheezing HEART: Irregular, systolic murmur ABDOMEN: Soft, nontender, positive bowel sounds EXTREMITIES: chronic dark skin changes, bilateral lower extremity swelling NEUROLOGIC: awake and alert Assessment and Plan As of to date in the evaluation of patient's recurrent falls at home and possible presyncope vs syncope There is no obvious imaging or study findings that confirms identifiable cause Possibly from too much Klonopin at home -no obvious head or neck injuries of CT head and neck -no pulmonary embolism or aortic dissection on CTA of chest -Physical therapy has not identified any ambulatory or mobility impairments -Psychiatry evaluated the patient for possible polypharmacy vs possible sedative effects of medications for panic disorder /depression and recommended to discourage the use of Klonopin for the immediate future, continue Buspar, continue Prozac, outpatient psychiatric appt up to 07/26/17 at 1140 AM; - Chronic ischemic systolic heart failure secondary to ischemic cardiomyopathy and follows with Dr. Vargas as per cardiology evaluation patient is known to have known chronic pericardial effusion, the mildly elevated troponin level is not considered to be concerning because EKG shows no ischemic changes and is unchanged from one done in 2016 and patient without chest pain Echocardiogram 07/20/17 conclusions 1.Mildly dilated left ventricle with severely reduced systolic function. EF 25- 30%. Akinesis of the mid to distal septum, mid to distal inferior wall, mid to distal lateral wall, apex, and distal anterior wall segments. Otherwise, global hypokinesis. Severe concentric left ventricular hypertrophy. Tissue Doppler suggests elevated left atrial pressure. 2. Severe biatrial dilation. 3. Mild aortic regurgitation. 4. At least moderate mitral regurgitation. 5. Moderately elevated right ventricular systolic pressure; 51 mmHg. 6. Moderate pericardial effusion without echocardiographic evidence of tamponade physiology. The pericardial effusion appears large posteriorly. 7. Compared to prior study on 02/11/2017, RVSP is now moderately elevated, while severely elevated on last study. -continue beta leticia, Lasix, Digoxin, atorvastatin -Atrial fibrillation, rate controlled, on Coumadin for anticoagulation, INR is 2 -Chronic anemia, hemoglobin at baseline. -Asymptomatic pyuria, urine culture pending -DM2 on oral medications at home, glucose well controlled Disposition: remains in hospital for further observation, possible discharge home tomorrow if no fall or syncopal events in the hospital
[2017-07-20] MEDS: ATORVASTATIN 20 MG TAB PO SCH (22:08)
[2017-07-21 04:02] VITALS: BP 129/58; PULSE 65; TEMP 36.7; O2SAT 94
[2017-07-21 05:54] LABS: BASO % 0.3 %; BASO ABS # 0.02 K/uL (0-0.2); EOS % 2.7 %; EOS ABS # 0.17 K/uL (0-0.5); HEMATOCRIT 40.5 % (42-52); HEMOGLOBIN 13.2 g/dL (14.0-18.0); IG# 0.02 K/uL (0.00-0.02); LYMPH ABS # 0.81 K/uL (1.2-3.4); MEAN CELL VOLUME 94.6 fL (80-100); MEAN CORPUSCULAR HEMOGLOBIN 30.8 pg (25-34); MEAN CORPUSCULAR HGB CONC 32.6 g/dl (32-36); MONO % 13.7 %; MONO ABS # 0.85 K/uL (0.11-0.59); NEUT ABS # 4.34 K/uL (1.4-6.5); PLATELET COUNT 164 K/uL (130-400); RED CELL DISTRIBUTION WIDTH CV 15.7 % (11.5-14.5); RED CELL DISTRIBUTION WIDTH SD 54.4 fL (36.4-46.3); WHITE BLOOD COUNT 6.21 K/uL (4.8-10.8)
[2017-07-21 06:07] LABS: INR 2.4 (0.9-1.1)
[2017-07-21 06:26] LABS: ALBUMIN 3.4 gm/dl (3.4-5.0); CALCIUM 9.2 mg/dl (8.5-10.1); CREATININE 0.97 mg/dl (0.60-1.40); POTASSIUM 3.8 mmol/L (3.5-5.1)
[2017-07-21 06:28] LABS: TOTAL PROTEIN 7.7 gm/dl (6.4-8.2)
[2017-07-21 07:31] VITALS: BP 133/78; PULSE 69; TEMP 36.4; O2SAT 92
[2017-07-21] MEDS: POTASSIUM CHLORIDE 10 MEQ TABCR PO SCH (08:12)
[2017-07-21] MEDS: FLUOXETINE HCL 20 MG CAP PO SCH (08:12)
[2017-07-21] MEDS: ASPIRIN 81 MG CHEW PO SCH (08:12)
[2017-07-21] MEDS: INSULIN ASPART 100 UNITS/ML 3 ML PEN SC SCH ×4 (08:16→20:52)
[2017-07-21] MEDS: INSULIN GLARGINE SOLOSTAR 100 UNITS/ML 3 ML PEN SC SCH (08:17)
[2017-07-21] MEDS: FUROSEMIDE 80 MG TAB PO SCH ×2 (09:37→20:50)
[2017-07-21] MEDS: METOPROLOL SUCC 50MG EXT REL TAB PO SCH ×2 (09:37→20:51)
[2017-07-21 10:50] VITALS: BP 143/68; PULSE 56; TEMP 36.4; O2SAT 94
[2017-07-21 11:26] VITALS: BP 131/80; PULSE 72; TEMP 36.7; O2SAT 93
[2017-07-21] MEDS ORDERED: CEFTRIAXONE SOD INJ 1 GM in DEXTROSE 5% ADD-VANTAGE 50ML 50 ML IV ONE (11:30)
--- NOTE | 2017-07-21 12:03 | CARDIOLOGY PROGRESS NOTE ---
DATE: 07/21/2017 SUBJECTIVE: Mr. Smith is resting comfortably at the bedside without complaints. He did have a typical episode of his angina pectoris this morning, which resolved spontaneously. Results of his echocardiogram reviewed in detail. His is at the bedside. OBJECTIVE: VITAL SIGNS: Blood pressure is 143/68 with an irregular pulse of 56. Respiratory rate is 20. The patient is afebrile at 36.4 degrees Celsius. Saturations 94% on room air. NECK: Supple with full carotid upstrokes. There are no carotid bruits. Jugular venous pressure is flat at 90 degrees. There is no thyromegaly. CARDIOVASCULAR: Reveals an irregularly irregular rhythm with distant heart sounds. No obvious murmurs. No S3. LUNGS: Clear without rales, rhonchi, or wheeze. ABDOMEN: Obese without bruits. EXTREMITIES: Reveal intact radial artery pulses bilaterally. There is no peripheral edema. DATA: CBC shows hemoglobin 13.2, hematocrit 40.5, white count 6.2, platelet count 64,000. Electrolytes note a sodium of 136, potassium 3.8, chloride 99, bicarbonate 32, BUN 18, creatinine 0.97, glucose 159. EKG notes atrial fibrillation with a controlled ventricular response. There is an old anterior myocardial infarction pattern. Nonspecific ST and T-wave abnormality noted. No change compared with tracing done yesterday at 1:47 p.m. IMPRESSION AND PLAN: 1. Coronary artery disease - with chronic stable angina pectoris. Continue medical management. 2. Ischemic cardiomyopathy - ejection fraction of 25-30% with a large anteroapical and distal inferior wall motion abnormality. 3. Chronic combined congestive heart failure - compensated at this time. 4. Chronic pericardial effusion - stable. 5. Permanent atrial fibrillation - continue rate control and long-term anticoagulation. 6. Anxiety/depression per psychiatry team.
[2017-07-21 15:03] VITALS: BP 149/72; PULSE 64; TEMP 36.4; O2SAT 95
[2017-07-21] MEDS: DIGOXIN 0.25 MG TAB PO SCH (15:59)
--- NOTE | 2017-07-21 18:30 | Progress Note ---
Internal Med Progress Note Date of Service: July 21, 2017. Provider Documentation: Subjective: Patient has been ambulatory without issues. Reported chest pain to nurse this AM. Troponins negative. Cardiology evaluated as angina pain. Patient denies urinary symptoms. Patient's continues to feel that patient is confused. Urine cultures return as gram negative bacilli. Patient given ceftriaxone. Patient and family understands that patient is staying to be treated for UTI and medical doctor awaits urine speciation PHYSICAL EXAMINATION: GENERAL: no distress. NECK: no JVD CHEST: fair air entry, no wheezing HEART: Irregular, systolic murmur ABDOMEN: Soft, nontender, positive bowel sounds EXTREMITIES: chronic dark skin changes, bilateral lower extremity swelling NEUROLOGIC: awake and alert ASSESSMENT & PLAN: As of to date in the evaluation of patient's recurrent falls at home and possible presyncope vs syncope Possibly from too much Klonopin at home vs urinary tract infection -no obvious head or neck injuries of CT head and neck -no pulmonary embolism or aortic dissection on CTA of chest -Physical therapy has not identified any ambulatory or mobility impairments, patient ambulates in hospital hallways without incident -Psychiatry evaluated the patient for possible polypharmacy vs possible sedative effects of medications for panic disorder /depression and recommended to discourage the use of Klonopin for the immediate future, continue Buspar, continue Prozac, outpatient psychiatric appt up to 07/26/17 at 1140 AM; Echocardiogram 07/20/17 conclusions 1.Mildly dilated left ventricle with severely reduced systolic function. EF 25- 30%. Akinesis of the mid to distal septum, mid to distal inferior wall, mid to distal lateral wall, apex, and distal anterior wall segments. Otherwise, global hypokinesis. Severe concentric left ventricular hypertrophy. Tissue Doppler suggests elevated left atrial pressure. 2. Severe biatrial dilation. 3. Mild aortic regurgitation. 4. At least moderate mitral regurgitation. 5. Moderately elevated right ventricular systolic pressure; 51 mmHg. 6. Moderate pericardial effusion without echocardiographic evidence of tamponade physiology. The pericardial effusion appears large posteriorly. 7. Compared to prior study on 02/11/2017, RVSP is now moderately elevated, while severely elevated on last study. Cardiology evaluation 1. Coronary artery disease - with chronic stable angina pectoris. Continue medical management. 2. Ischemic cardiomyopathy - ejection fraction of 25-30% with a large anteroapical and distal inferior wall motion abnormality. 3. Chronic combined congestive heart failure - compensated at this time. 4. Chronic pericardial effusion - stable. 5. Permanent atrial fibrillation - continue rate control and long-term anticoagulation. -continue beta leticia, Lasix, Digoxin, atorvastatin -Atrial fibrillation, rate controlled, on Coumadin for anticoagulation, INR is 2 -Chronic anemia, hemoglobin at baseline. -DM2 on oral medications at home, glucose somewhat elevated today, continue to monitor and give insulin as needed -Urine culture with gram negative bacilli, ceftriaxone given, awaiting bacteria speciation Disposition: remains in hospital for treatment of UTI and awaiting urine culture speciation. Vital Signs: Date Time Temp Pulse Resp B/P (MAP) Pulse Ox O2 Delivery O2 Flow Rate FiO2 07/21/17 15:59 64 07/21/17 15:03 36.4 64 18 149/72 (97) 95 Room Air 07/21/17 12:00 Room Air 07/21/17 11:26 36.7 72 16 131/80 (97) 93 Room Air 07/21/17 10:50 36.4 56 20 143/68 (93) 94 Room Air 07/21/17 08:00 Room Air 07/21/17 07:31 36.4 69 18 133/78 (96) 92 Room Air 07/21/17 04:02 36.7 65 18 129/58 (81) 94 Room Air 07/21/17 04:00 Room Air 07/20/17 23:59 Room Air 07/20/17 23:56 36.7 62 18 126/71 (89) 95 Room Air 07/20/17 22:26 137/69 (91) 148/77 (100) 148/77 (100) 07/20/17 20:18 36.8 81 18 135/67 (89) 95 Room Air 07/20/17 20:00 Room Air Lab Results: Results Past 24 Hours Test 07/20/17 20:51 07/21/17 05:36 07/21/17 07:46 07/21/17 11:19 Range/Units Bedside Glucose 211 145 70-99 mg/dl White Blood Count 6.21 4.8-10.8 K/uL Red Blood Count 4.28 4.7-6.1 M/uL Hemoglobin 13.2 14.0-18.0 g/dL Hematocrit 40.5 42-52 % Mean Corpuscular Volume 94.6 80-100 fL Mean Corpuscular Hemoglobin 30.8 25-34 pg Mean Corpuscular Hemoglobin Concent 32.6 32-36 g/dl Platelet Count 164 130-400 K/uL Mean Platelet Volume 9.0 7.4-10.4 fL Neutrophils (%) (Auto) 70.0 % Lymphocytes (%) (Auto) 13.0 % Monocytes (%) (Auto) 13.7 % Eosinophils (%) (Auto) 2.7 % Basophils (%) (Auto) 0.3 % Neutrophils # (Auto) 4.34 1.4-6.5 K/uL Lymphocytes # (Auto) 0.81 1.2-3.4 K/uL Monocytes # (Auto) 0.85 0.11-0.59 K/uL Eosinophils # (Auto) 0.17 0-0.5 K/uL Basophils # (Auto) 0.02 0-0.2 K/uL RDW Standard Deviation 54.4 36.4-46.3 fL RDW Coefficient of Variation 15.7 11.5-14.5 % Immature Granulocyte % (Auto) 0.3 % Immature Granulocyte # (Auto) 0.02 0.00-0.02 K/uL Prothrombin Time 24.6 9.0-12.0 SECONDS Prothromb Time International Ratio 2.4 0.9-1.1 Sodium Level 136 136-145 mmol/L Potassium Level 3.8 3.5-5.1 mmol/L Chloride Level 99 98-107 mmol/L Carbon Dioxide Level 32 21-32 mmol/L Anion Gap 5.0 3-11 mmol/L Blood Urea Nitrogen 18 7-18 mg/dl Creatinine 0.97 0.60-1.40 mg/dl Est Creatinine Clear Calc Drug Dose 87.5 ml/min Estimated GFR () 93.9 Estimated GFR (Non- 81.0 BUN/Creatinine Ratio 19.0 10-20 Random Glucose 159 70-99 mg/dl Calcium Level 9.2 8.5-10.1 mg/dl Total Bilirubin 1.5 0.2-1 mg/dl Aspartate Amino Transf (AST/SGOT) 20 15-37 U/L Alanine Aminotransferase (ALT/SGPT) 21 12-78 U/L Alkaline Phosphatase 95 45-117 U/L Total Protein 7.7 6.4-8.2 gm/dl Albumin 3.4 3.4-5.0 gm/dl Globulin 4.3 2.5-4.0 gm/dl Albumin/Globulin Ratio 0.8 0.9-2 Troponin I 0.017 0-0.045 ng/ml Test 07/21/17 11:35 Range/Units Bedside Glucose 208 70-99 mg/dl
[2017-07-21 20:47] VITALS: BP 148/81; PULSE 71
[2017-07-21] MEDS: ATORVASTATIN 20 MG TAB PO SCH (20:49)
[2017-07-22 00:05] VITALS: BP 143/79; PULSE 68; TEMP 36.5; O2SAT 95
[2017-07-22 07:09] LABS: INR 1.9 (0.9-1.1)
[2017-07-22 07:17] VITALS: BP 132/75; PULSE 66; TEMP 36.7; O2SAT 98
[2017-07-22] MEDS: METOPROLOL SUCC 50MG EXT REL TAB PO SCH (07:53)
[2017-07-22] MEDS: FLUOXETINE HCL 20 MG CAP PO SCH (07:53)
[2017-07-22] MEDS: FUROSEMIDE 80 MG TAB PO SCH (07:53)
[2017-07-22] MEDS: POTASSIUM CHLORIDE 10 MEQ TABCR PO SCH (07:53)
[2017-07-22] MEDS: ASPIRIN 81 MG CHEW PO SCH (07:53)
[2017-07-22] MEDS: INSULIN ASPART 100 UNITS/ML 3 ML PEN SC SCH ×2 (07:56→12:21)
[2017-07-22] MEDS: INSULIN GLARGINE SOLOSTAR 100 UNITS/ML 3 ML PEN SC SCH (07:57)
--- NOTE | 2017-07-22 11:13 | CARDIOLOGY PROGRESS NOTE ---
DATE: 07/22/2017 SUBJECTIVE: Mr. Smith is resting comfortably at the bedside without complaints of chest pain, dyspnea, or palpitations. He is anxious for hospital discharge. OBJECTIVE: VITAL SIGNS: Blood pressure 132/75 with an irregular pulse of 66. Respiratory rate is 16. The patient is afebrile at 36.7 degrees Celsius. Saturation 94% on room air. NECK: Supple with full carotid upstrokes. No carotid bruits. Jugular venous pressure is flat at 90 degrees. There is no thyromegaly. CARDIOVASCULAR: Reveals an irregular rhythm with distant heart sounds. No obvious murmurs. No S3. LUNGS: Clear without rales, rhonchi, or wheeze. ABDOMEN: Soft, nontender without bruits. EXTREMITIES: Reveal intact radial artery pulses bilaterally. Trace pretibial edema is noted. DATA: Bedside glucose is 132. INR is subtherapeutic at 1.9. Urine culture notes a Klebsiella species which is nearly pansensitive. IMPRESSION AND PLAN: 1. Coronary artery disease - with chronic stable angina pectoris. Continue medical management. 2. Ischemic cardiomyopathy - ejection fraction of 25-30% with a large anteroapical and distal inferior wall motion abnormality. We will discuss implantation of a defibrillator at his outpatient visit later this month. 3. Chronic combined congestive heart failure - compensated. 4. Chronic pericardial effusion - stable. 5. Permanent atrial fibrillation - continue rate control and long-term anticoagulation. 6. Anxiety/depression - per psychiatry team. 7. Urinary tract infection - will convert to oral antibiotics for discharge today. [facility]
[2017-07-22] MEDS ORDERED: CEFTRIAXONE SOD INJ 1 GM in DEXTROSE 5% ADD-VANTAGE 50ML 50 ML IV SCH (12:00)
[2017-07-22] MEDS ORDERED: CPR500 PO (12:16)
--- NOTE | 2017-07-22 12:45 | Progress Note ---
Internal Med Progress Note Date of Service: July 22, 2017. Provider Documentation: Subjective: Patient has been ambulatory without issues. Denies pain with urination. Urine culture resulted as Klebsiella oxytoca with resistance to CEFAZOLIN, CEFUROXIME , intermediate resistance to ampicillin/sulbactam. Have discussed with patient that despite other sensitivities to antibiotic that an ideal antibiotic would be an IV antibiotic such as Ertapenem but patient prefers to go home with an oral antibiotic and follow up with primary care doctor for follow up urinalysis to see if bacteria clears. PHYSICAL EXAMINATION: GENERAL: no distress. NECK: no JVD CHEST: fair air entry, no wheezing HEART: Irregular, systolic murmur ABDOMEN: Soft, nontender, positive bowel sounds EXTREMITIES: chronic dark skin changes, bilateral lower extremity swelling NEUROLOGIC: awake and alert ASSESSMENT & PLAN: Hospital Course and Discharge Plans Patient was placed under observation for evaluation of patient's recurrent falls at home and possible presyncope vs syncope possibly from too much Klonopin and then admitted for gram negative bacilli in urine (Urinary Tract inefction) which resulted as Klebsiella oxytoca with resistance to CEFAZOLIN, CEFUROXIME, intermediate resistance to ampicillin/sulbactam -no obvious head or neck injuries of CT head and neck -no pulmonary embolism or aortic dissection on CTA of chest -Physical therapy has not identified any ambulatory or mobility impairments, patient ambulates in hospital hallways without incident -Psychiatry evaluated the patient for possible polypharmacy vs possible sedative effects of medications for panic disorder /depression and recommended to discourage the use of Klonopin for the immediate future, continue Buspar, continue Prozac, outpatient psychiatric appt up to 07/26/17 at 1140 AM; Echocardiogram 07/20/17 conclusions 1.Mildly dilated left ventricle with severely reduced systolic function. EF 25- 30%. Akinesis of the mid to distal septum, mid to distal inferior wall, mid to distal lateral wall, apex, and distal anterior wall segments. Otherwise, global hypokinesis. Severe concentric left ventricular hypertrophy. Tissue Doppler suggests elevated left atrial pressure. 2. Severe biatrial dilation. 3. Mild aortic regurgitation. 4. At least moderate mitral regurgitation. 5. Moderately elevated right ventricular systolic pressure; 51 mmHg. 6. Moderate pericardial effusion without echocardiographic evidence of tamponade physiology. The pericardial effusion appears large posteriorly. 7. Compared to prior study on 02/11/2017, RVSP is now moderately elevated, while severely elevated on last study. Cardiology evaluation 1. Coronary artery disease - with chronic stable angina pectoris. Continue medical management. 2. Ischemic cardiomyopathy - ejection fraction of 25-30% with a large anteroapical and distal inferior wall motion abnormality. 3. Chronic combined congestive heart failure - compensated at this time. 4. Chronic pericardial effusion - stable. 5. Permanent atrial fibrillation - continue rate control and long-term anticoagulation. -continue beta leticia, Lasix, Digoxin, atorvastatin -Atrial fibrillation, rate controlled, on Coumadin for anticoagulation, INR is 2 -Chronic anemia, hemoglobin at baseline. -DM2 on oral medications at home, glucose somewhat elevated today, continue to monitor and give insulin as needed -Urine culture with gram negative bacilli, ceftriaxone x 2 days have been empirically given, urine culture as Klebsiella oxytoca with resistance to CEFAZOLIN, CEFUROXIME, intermediate resistance to ampicillin/sulbactam KLEBSIELLA OXYTOCA Target Route Dose RX AB Cost M.I.C. IQ ------ ----- ------ -- ------ -------- - ------ TRIMET/SULFA S <=2/38 AMPICILLIN/SUL I 16/8 CEFAZOLIN R >16 CEFOXITIN S <=8 CEFOTAXIME S <=2 CEFTRIAXONE S <=1 CEFEPIME S <=4 CEFUROXIME R >16 IMIPENEM S <=1 GENTAMICIN S <=4 TOBRAMYCIN S <=4 AMIKACIN S <=16 CIPROFLOXACIN S <=1 LEVOFLOXACIN S <=2 ERTAPENEM S <=1 NITROFURANTOIN S <=32 PIP/TAZO S <=16 S = SENSITIVE I = INTERMEDIATE R = RESISTANT Have discussed with patient that despite other sensitivities to antibiotic that an ideal antibiotic would be an IV antibiotic such as Ertapenem but patient prefers to go home with an oral antibiotic and follow up with primary care doctor for follow up urinalysis to see if bacteria clears. Discharge instructions Patient given prescription of ciprofloxacin 500 mg BID for 7 days 07/24/2017 11:20 AM Delmer Gracia MD [facility] for follow up of urinary tract infection and needs repeat urinalysis and potentially need antibiotic type or antibiotic duration to be re-evaluated Stop the use of Klonopin for the immediate future, continue Buspar, continue Prozac, outpatient psychiatric appt up to 07/26/17 at 1140 AM Follow up with [facility] Dr. Vargas Follow up appointments for checking INR while on Coumadin 08/01/2017 1:30 PM [facility] [place] [facility] 7:[address] [facility] [place] [facility] Vital Signs: Date Time Temp Pulse Resp B/P (MAP) Pulse Ox O2 Delivery O2 Flow Rate FiO2 07/22/17 08:00 Room Air 07/22/17 07:17 36.7 66 16 132/75 (94) 98 Room Air 07/22/17 04:00 Room Air 07/22/17 00:05 36.5 68 18 143/79 (100) 95 Room Air 07/21/17 23:59 Room Air 07/21/17 20:47 71 148/81 (103) 07/21/17 19:33 Room Air 07/21/17 15:59 64 07/21/17 15:03 36.4 64 18 149/72 (97) 95 Room Air Lab Results: Results Past 24 Hours Test 07/21/17 16:46 07/21/17 20:22 07/22/17 06:39 07/22/17 07:53 Range/Units Bedside Glucose 119 178 132 70-99 mg/dl Prothrombin Time 20.2 9.0-12.0 SECONDS Prothromb Time International Ratio 1.9 0.9-1.1 Test 07/22/17 11:43 Range/Units Bedside Glucose 236 70-99 mg/dl
--- NOTE | 2017-07-22 12:47 | Discharge Instructions ---
Discharge Instructions Date of Service July 22, 2017. Admission Reason for Admission: Syncope Discharge Discharge Diagnosis / Problem: syncope evaluation, pericardial effusion, on coumadin, UTI Discharge Goals Goal(s): Improve function, Improve disease control Activity Recommendations Activity Limitations: per Instructions/Follow-up section Shower/Bathe: no limitations . Instructions / Follow-Up Instructions / Follow-Up Hospital Course and Discharge Plans Patient was placed under observation for evaluation of patient's recurrent falls at home and possible presyncope vs syncope possibly from too much Klonopin and then admitted for gram negative bacilli in urine (Urinary Tract infection) which resulted as Klebsiella oxytoca with resistance to CEFAZOLIN, CEFUROXIME, intermediate resistance to ampicillin/sulbactam -no obvious head or neck injuries of CT head and neck -no pulmonary embolism or aortic dissection on CTA of chest -Physical therapy has not identified any ambulatory or mobility impairments, patient ambulates in hospital hallways without incident -Psychiatry evaluated the patient for possible polypharmacy vs possible sedative effects of medications for panic disorder /depression and recommended to discourage the use of Klonopin for the immediate future, continue Buspar, continue Prozac, outpatient psychiatric appt up to 07/26/17 at 1140 AM; Echocardiogram 07/20/17 conclusions 1.Mildly dilated left ventricle with severely reduced systolic function. EF 25- 30%. Akinesis of the mid to distal septum, mid to distal inferior wall, mid to distal lateral wall, apex, and distal anterior wall segments. Otherwise, global hypokinesis. Severe concentric left ventricular hypertrophy. Tissue Doppler suggests elevated left atrial pressure. 2. Severe biatrial dilation. 3. Mild aortic regurgitation. 4. At least moderate mitral regurgitation. 5. Moderately elevated right ventricular systolic pressure; 51 mmHg. 6. Moderate pericardial effusion without echocardiographic evidence of tamponade physiology. The pericardial effusion appears large posteriorly. 7. Compared to prior study on 02/11/2017, RVSP is now moderately elevated, while severely elevated on last study. Cardiology evaluation 1. Coronary artery disease - with chronic stable angina pectoris. Continue medical management. 2. Ischemic cardiomyopathy - ejection fraction of 25-30% with a large anteroapical and distal inferior wall motion abnormality. 3. Chronic combined congestive heart failure - compensated at this time. 4. Chronic pericardial effusion - stable. 5. Permanent atrial fibrillation - continue rate control and long-term anticoagulation. -continue beta leticia, Lasix, Digoxin, atorvastatin -Atrial fibrillation, rate controlled, on Coumadin for anticoagulation, INR is 2 -Chronic anemia, hemoglobin at baseline. -DM2 on oral medications at home, glucose somewhat elevated today, continue to monitor and give insulin as needed -Urine culture with gram negative bacilli, ceftriaxone x 2 days have been empirically given, urine culture as Klebsiella oxytoca with resistance to CEFAZOLIN, CEFUROXIME, intermediate resistance to ampicillin/sulbactam KLEBSIELLA OXYTOCA Target Route Dose RX AB Cost M.I.C. IQ ------ ----- ------ -- ------ -------- - ------ TRIMET/SULFA S <=2/38 AMPICILLIN/SUL I 16/8 CEFAZOLIN R >16 CEFOXITIN S <=8 CEFOTAXIME S <=2 CEFTRIAXONE S <=1 CEFEPIME S <=4 CEFUROXIME R >16 IMIPENEM S <=1 GENTAMICIN S <=4 TOBRAMYCIN S <=4 AMIKACIN S <=16 CIPROFLOXACIN S <=1 LEVOFLOXACIN S <=2 ERTAPENEM S <=1 NITROFURANTOIN S <=32 PIP/TAZO S <=16 S = SENSITIVE I = INTERMEDIATE R = RESISTANT Have discussed with patient that despite other sensitivities to antibiotic that an ideal antibiotic would be an IV antibiotic such as Ertapenem but patient prefers to go home with an oral antibiotic and follow up with primary care doctor for follow up urinalysis to see if bacteria clears. Discharge instructions Patient given prescription of ciprofloxacin 500 mg BID for 7 days 07/24/2017 11:20 AM Delmer Gracia MD [facility] for follow up of urinary tract infection and needs repeat urinalysis and potentially need antibiotic type or antibiotic duration to be re-evaluated Stop the use of Klonopin for the immediate future, continue Buspar, continue Prozac, outpatient psychiatric appt up to 07/26/17 at 1140 AM Follow up with [facility] Cardiology Dr. Vargas Follow up appointments for checking INR while on Coumadin 08/01/2017 1:30 PM [facility] [place] [facility] 7:00 AM [facility] [place] [facility], [facility] Diet Patient's current hospital diet: AHA Diet (Heart Healthy), Diabetes Type 2 Diet Discharge Diet Recommended Diet: AHA Diet (Heart Healthy), Diabetes Type 2 Diet Pending Studies Studies pending at discharge: no Laboratory Results 07/21/17 05:36 Red Blood Count 4.28, Mean Corpuscular Volume 94.6, Mean Corpuscular Hemoglobin 30.8, Mean Corpuscular Hemoglobin Concent 32.6, Mean Platelet Volume 9.0, Neutrophils (%) (Auto) 70.0, Lymphocytes (%) (Auto) 13.0, Monocytes (%) (Auto) 13.7, Eosinophils (%) (Auto) 2.7, Basophils (%) (Auto) 0.3, Neutrophils # (Auto ) 4.34, Lymphocytes # (Auto) 0.81, Monocytes # (Auto) 0.85, Eosinophils # (Auto ) 0.17, Basophils # (Auto) 0.02 07/21/17 05:36 Test 07/19/17 23:40 07/19/17 23:43 07/20/17 02:30 07/20/17 03:28 Urine Color YELLOW Urine Appearance TURBID (CLEAR) Urine pH 6.5 (4.5-7.5) Urine Specific [place] 1.011 (1.000-1.030) Urine Protein 1+ (NEG) Urine Glucose (UA) NEG (NEG) Urine Ketones NEG (NEG) Urine Occult Blood 2+ (NEG) Urine Nitrite NEG (NEG) Urine Bilirubin NEG (NEG) Urine Urobilinogen NEG (NEG) Urine Leukocyte Esterase LARGE (NEG) Urine WBC (Auto) >30 /hpf (0-5) Urine RBC (Auto) 0-4 /hpf (0-4) Urine Hyaline Casts (Auto) 0 /lpf (0-5) Urine Epithelial Cells (Auto) 5-10 /lpf (0-5) Urine Bacteria (Auto) 2+ (NEG) Urine Yeast (Auto) (NONE PRSENT) Estimated Average Glucose 174 mg/dl Hemoglobin A1c 7.7 % (4.5-5.6) Phosphorus Level 2.6 mg/dl (2.5-4.9) Magnesium Level 1.8 mg/dl (1.8-2.4) Pro-B-Type Natriuretic Peptide 2201 pg/ml (0-900) Lipase 135 U/L (73-393) Thyroid Stimulating Hormone (TSH) 2.590 uIu/ml (0.300-4.500) Digoxin Level 1.1 ng/ml (0.8-2.0) Total Creatine Kinase 86 U/L (39-308) Test 07/21/17 05:36 07/21/17 11:19 07/22/17 06:39 07/22/17 11:43 White Blood Count 6.21 K/uL (4.8-10.8) Red Blood Count 4.28 M/uL (4.7-6.1) Hemoglobin 13.2 g/dL (14.0-18.0) Hematocrit 40.5 % (42-52) Mean Corpuscular Volume 94.6 fL (80-100) Mean Corpuscular Hemoglobin 30.8 pg (25-34) Mean Corpuscular Hemoglobin Concent 32.6 g/dl (32-36) Platelet Count 164 K/uL (130-400) Mean Platelet Volume 9.0 fL (7.4-10.4) Neutrophils (%) (Auto) 70.0 % Lymphocytes (%) (Auto) 13.0 % Monocytes (%) (Auto) 13.7 % Eosinophils (%) (Auto) 2.7 % Basophils (%) (Auto) 0.3 % Neutrophils # (Auto) 4.34 K/uL (1.4-6.5) Lymphocytes # (Auto) 0.81 K/uL (1.2-3.4) Monocytes # (Auto) 0.85 K/uL (0.11-0.59) Eosinophils # (Auto) 0.17 K/uL (0-0.5) Basophils # (Auto) 0.02 K/uL (0-0.2) RDW Standard Deviation 54.4 fL (36.4-46.3) RDW Coefficient of Variation 15.7 % (11.5-14.5) Immature Granulocyte % (Auto) 0.3 % Immature Granulocyte # (Auto) 0.02 K/uL (0.00-0.02) Anion Gap 5.0 mmol/L (3-11) Est Creatinine Clear Calc Drug Dose 87.5 ml/min Estimated GFR () 93.9 Estimated GFR (Non- 81.0 BUN/Creatinine Ratio 19.0 (10-20) Calcium Level 9.2 mg/dl (8.5-10.1) Total Bilirubin 1.5 mg/dl (0.2-1) Aspartate Amino Transf (AST/SGOT) 20 U/L (15-37) Alanine Aminotransferase (ALT/SGPT) 21 U/L (12-78) Alkaline Phosphatase 95 U/L (45-117) Total Protein 7.7 gm/dl (6.4-8.2) Albumin 3.4 gm/dl (3.4-5.0) Globulin 4.3 gm/dl (2.5-4.0) Albumin/Globulin Ratio 0.8 (0.9-2) Troponin I 0.017 ng/ml (0-0.045) Prothrombin Time 20.2 SECONDS (9.0-12.0) Prothromb Time International Ratio 1.9 (0.9-1.1) Bedside Glucose 236 mg/dl (70-99) Date/Time Source Procedure Growth Status 07/19/17 23:40 Urine , Clean Catch Urine Culture - Final Klebsiella Oxytoca Complete Hemoglobin A1c Test 07/19/17 23:43 Range/Units Estimated Average Glucose 174 mg/dl Hemoglobin A1c 7.7 H 4.5-5.6 % Medical Emergencies . Who to Call and When: Medical Emergencies: If at any time you feel your situation is an emergency, please call 911 immediately. . Non-Emergent Contact Non-Emergency issues call your: Primary Care Provider, Teacher Of Gifted [employer], Specialist (psychiatry) Call Non-Emergent contact if: you have any medication questions . . "Provider Documentation" section prepared by Esau Le. .
--- NOTE | 2017-07-22 12:51 | Discharge Summary ---
Discharge Summary Date of Service July 22, 2017. Discharge Summary Admission Date: July 21, 2017 at 18:23 Discharge Date: July 22, 2017 Discharge Disposition: Home Principal Diagnosis: Syncope. UTI with Klebsiella Oxytoca Secondary Diagnoses/Problems: Coronary artery disease - with chronic stable angina pectoris Ischemic cardiomyopathy Chronic combined congestive heart failure Chronic pericardial effusion Permanent atrial fibrillation On coumadin anticoagulation with target INR 2 to 3 panic disorder /depression Medication Reconciliation New Medications: Ciprofloxacin (Ciprofloxacin HCl) 500 Mg Tab 1 TAB PO BID for 7 Days, #14 TAB Continued Medications: Aspirin (Aspirin 81 Low Dose) 81 Mg Chw 81 MG PO QAM Atorvastatin (Lipitor) 40 Mg Tab 40 MG PO QPM, TAB Buspirone Hcl (Buspirone Hcl) 7.5 Mg Tab 7.5 MG PO BID Digoxin (Digoxin) 0.25 Mg Tab 0.25 MG PO QAM Fluoxetine (Prozac) 20 Mg Cap 40 MG PO BID, CAP Furosemide (Lasix) 80 Mg Tab 80 MG PO BID, TAB Glimepiride (Glimepiride) 2 Mg Tab 2 MG PO DAILY TAKE 2MG WITH A 4MG TABLET FOR A TOTAL DOSE OF 6MG Glimepiride (Glimepiride) 4 Mg Tab 4 MG PO DAILY TAKE 4MG WITH A 2MG TABLET DAILY FOR A TOTAL DOSE OF 6MG DAILY Metformin HCl (Metformin HCl ER) 500 Mg Tabcr 500 MG PO BID Metoprolol Succ (Toprol Xl) (Toprol-Xl ) 100 Mg Tabcr 100 MG PO BID, TAB Potassium Chloride (Micro-K Ext Rel) 10 Meq Capcr 10 MEQ PO DAILY, CAP Warfarin Sodium (Warfarin Sodium) 5 Mg Tab 5 MG PO WK 5 MG EVERY MONDAY Warfarin Sodium (Warfarin Sodium) 5 Mg Tab 2.5 MG PO 6XWK 1/2 TABLET DOSE EVERY MONDAY/MONDAY/MONDAY/MONDAY/MONDAY/MONDAY. Discontinued Medications: Clonazepam (Klonopin) 0.5 Mg Tab 0.5 MG PO BID Admission Information HPI (per Admitting provider): CHIEF COMPLAINT: Chest pain. HISTORY OF PRESENT ILLNESS: History obtained from the patient, , and records. Medical history is significant for chronic systolic heart failure secondary to ischemic cardiomyopathy, EF of 25%-30% from a 2D echo January 2017, history of CAD status post stenting, AFib on Coumadin, hypertension, DM2 on oral meds, sleep apnea on CPAP, anxiety, mood disorder, chronic anemia (baseline hemoglobin of 13), history of chronic venous insufficiency status post ablation. Recent confinement, January 2017 for pneumonia and chest pain. A 2D echo at that time showed severe LV dysfunction, EF 25%, biatrial enlargement, moderate AR, moderate MR, moderate TR, severe pulmonary hypertension, small to moderate pericardial effusion without tamponade physiology. Patient has been dealing with anxiety for the last few months. Stressor could not be identified. He was at his psychiatrist's office few days ago. Patient instructed to increase p.r.n. Clonazepam dosing from 0.25 b.i.d. to 0.5 b.i.d. as needed for anxiety. Patient misunderstood dosing to be 1 mg twice daily RTC. Patient noted to be sleepy, restless by his subsequently. Yesterday, patient had 2 episodes where his left leg gave out causing him to fall. No leg pain. Patient not sure if he passed out. No tongue biting, no incontinence, no head trauma. No chest pain, no shortness of breath. Today, patient was with his spouse when he had another falling episode, a little sleepy. No bladder discomfort. Brought to the Emergency Room. Patient given Ceftriaxone at the ER for possible UTI. MEDICAL HISTORY: As above. SURGERIES: He has had bowel surgery, vascular procedures. HOME MEDICATIONS: Include Lipitor, aspirin, buspirone, Klonopin, digoxin, Lasix, Prozac, glimepiride, metformin, Toprol-XL, Micro-K, Coumadin. ALLERGIES: CODEINE, SIMVASTATIN, PENICILLIN. FAMILY HISTORY: There is a family history of heart disease. PERSONAL AND SOCIAL HISTORY: Nonsmoker. Retired [employer]. No ETOH abuse. REVIEW OF SYSTEMS: As per HPI. All 10 systems reviewed. All other ROS negative. Physical Exam (per Admitting): PHYSICAL EXAMINATION: VITAL SIGNS: Blood pressure was noted to be 126/72 IA 88 RR 20 T 36.7 O2 sats 94_ on room air. GENERAL: Noted to be anxious, obese, no respiratory distress. SKIN: normal color, warm. HEENT: [place] palpebral conjunctivae. conjunctivitis, R, no discharge (from being tired as per patient), dry mucosa. NECK: Short, supple. CHEST: Decreased breath sounds. No tenderness. HEART: Irregular, systolic murmur, diminished S1, S2. ABDOMEN: Soft, nontender. Healed incisional scar. EXTREMITIES: Minimal LE edema. No tenderness. Some stasis. No other gross deformity NEUROLOGIC: Coherent, no gross focality. Hospital Course Hospital Course and Discharge Plans Patient was placed under observation for evaluation of patient's recurrent falls at home and possible presyncope vs syncope possibly from too much Klonopin and then admitted for gram negative bacilli in urine (Urinary Tract infection) which resulted as Klebsiella oxytoca with resistance to CEFAZOLIN, CEFUROXIME, intermediate resistance to ampicillin/sulbactam -no obvious head or neck injuries of CT head and neck -no pulmonary embolism or aortic dissection on CTA of chest -Physical therapy has not identified any ambulatory or mobility impairments, patient ambulates in hospital hallways without incident -Psychiatry evaluated the patient for possible polypharmacy vs possible sedative effects of medications for panic disorder /depression and recommended to discourage the use of Klonopin for the immediate future, continue Buspar, continue Prozac, outpatient psychiatric appt up to 07/26/17 at 1140 AM; Echocardiogram 07/20/17 conclusions 1.Mildly dilated left ventricle with severely reduced systolic function. EF 25- 30%. Akinesis of the mid to distal septum, mid to distal inferior wall, mid to distal lateral wall, apex, and distal anterior wall segments. Otherwise, global hypokinesis. Severe concentric left ventricular hypertrophy. Tissue Doppler suggests elevated left atrial pressure. 2. Severe biatrial dilation. 3. Mild aortic regurgitation. 4. At least moderate mitral regurgitation. 5. Moderately elevated right ventricular systolic pressure; 51 mmHg. 6. Moderate pericardial effusion without echocardiographic evidence of tamponade physiology. The pericardial effusion appears large posteriorly. 7. Compared to prior study on 02/11/2017, RVSP is now moderately elevated, while severely elevated on last study. Cardiology evaluation 1. Coronary artery disease - with chronic stable angina pectoris. Continue medical management. 2. Ischemic cardiomyopathy - ejection fraction of 25-30% with a large anteroapical and distal inferior wall motion abnormality. 3. Chronic combined congestive heart failure - compensated at this time. 4. Chronic pericardial effusion - stable. 5. Permanent atrial fibrillation - continue rate control and long-term anticoagulation. -continue beta leticia, Lasix, Digoxin, atorvastatin -Atrial fibrillation, rate controlled, on Coumadin for anticoagulation, INR is 2 -Chronic anemia, hemoglobin at baseline. -DM2 on oral medications at home, glucose somewhat elevated today, continue to monitor and give insulin as needed -Urine culture with gram negative bacilli, ceftriaxone x 2 days have been empirically given, urine culture as Klebsiella oxytoca with resistance to CEFAZOLIN, CEFUROXIME, intermediate resistance to ampicillin/sulbactam KLEBSIELLA OXYTOCA Target Route Dose RX AB Cost M.I.C. IQ ------ ----- ------ -- ------ -------- - ------ TRIMET/SULFA S <=2/38 AMPICILLIN/SUL I 16/8 CEFAZOLIN R >16 CEFOXITIN S <=8 CEFOTAXIME S <=2 CEFTRIAXONE S <=1 CEFEPIME S <=4 CEFUROXIME R >16 IMIPENEM S <=1 GENTAMICIN S <=4 TOBRAMYCIN S <=4 AMIKACIN S <=16 CIPROFLOXACIN S <=1 LEVOFLOXACIN S <=2 ERTAPENEM S <=1 NITROFURANTOIN S <=32 PIP/TAZO S <=16 S = SENSITIVE I = INTERMEDIATE R = RESISTANT Have discussed with patient that despite other sensitivities to antibiotic that an ideal antibiotic would be an IV antibiotic such as Ertapenem but patient prefers to go home with an oral antibiotic and follow up with primary care doctor for follow up urinalysis to see if bacteria clears. Discharge instructions Patient given prescription of ciprofloxacin 500 mg BID for 7 days 07/24/2017 11:20 AM Delmer Gracia MD [facility] for follow up of urinary tract infection and needs repeat urinalysis and potentially need antibiotic type or antibiotic duration to be re-evaluated Stop the use of Klonopin for the immediate future, continue Buspar, continue Prozac, outpatient psychiatric appt up to 07/26/17 at 1140 AM Follow up with [facility]. Vargas Follow up appointments for checking INR while on Coumadin 08/01/2017 1:30 PM [facility] 08[facility]02/[facility] 7:[address] [facility] [place] Total time spent on discharge = This includes examination of the patient, discharge planning, medication reconciliation, and communication with other providers. Discharge Instructions see above
[2017-07-22 12:56] VITALS: BP 132/75; PULSE 66; TEMP 36.7; O2SAT 98
== END 2017-07-22 13:31 | disposition home or self-care (01) | DRG 92 ==
LOC: C.EDB 22:17 → C.MED 07-20 02:28 → ENRESERV 07-20 02:40 → OBSVTOIN 07-21 18:23
PROVIDERS: ADMIT Hospitalist; ATTEND Hospitalist
DX: R29.6 Repeated falls (principal); N30.01 Acute cystitis with hematuria; I50.42 Chronic combined systolic (congestive) and diastolic (congestive) heart failure; I31.3 Pericardial effusion (noninflammatory); F33.1 Major depressive disorder, recurrent, moderate; T42.4X1A Poisoning by benzodiazepines, accidental (unintentional), initial encounter; B96.89 Other specified bacterial agents as the cause of diseases classified elsewhere; R55 Syncope and collapse; R29.898 Other symptoms and signs involving the musculoskeletal system; W19.XXXA Unspecified fall, initial encounter; E87.6 Hypokalemia; T50.2X5A Adverse effect of carbonic-anhydrase inhibitors, benzothiadiazides and other diuretics, initial encounter; I25.119 Atherosclerotic heart disease of native coronary artery with unspecified angina pectoris; R79.89 Other specified abnormal findings of blood chemistry; I25.5 Ischemic cardiomyopathy; I48.2 Chronic atrial fibrillation; E11.65 Type 2 diabetes mellitus with hyperglycemia; D64.9 Anemia, unspecified; M19.90 Unspecified osteoarthritis, unspecified site; G47.33 Obstructive sleep apnea (adult) (pediatric); F41.0 Panic disorder [episodic paroxysmal anxiety]; Z99.89 Dependence on other enabling machines and devices; Z95.5 Presence of coronary angioplasty implant and graft; Z91.81 History of falling; Z79.01 Long term (current) use of anticoagulants; Z79.82 Long term (current) use of aspirin; Z79.84 Long term (current) use of oral hypoglycemic drugs; Z79.899 Other long term (current) drug therapy; Z88.0 Allergy status to penicillin; Z88.5 Allergy status to narcotic agent; Z88.8 Allergy status to other drugs, medicaments and biological substances

== ENCOUNTER 2017-10-24 10:46 | Observation (INO) | payer OTHER, MEDICARE ==
[~2017-10-24] VITALS: Ht 172.7 cm; Wt 100.5 kg
[2017-10-24] VITALS (13 sets, daily range): BP systolic 124–172; BP diastolic 61–88; PULSE 83–101; TEMP 36.5–36.8; O2SAT 91–99; Ht 172.7 cm; Wt 100.5 kg
[~2017-10-24 10:46] MED LIST changes: -ASPI1CHW12 PO; +ASPI81TA28 PO; +BMX1 PO; -BUSP1TAB46 PO; +CLINDAMYCIN 600 MG/54 ML D5W IV SCH; -CLON0.5T3 PO; -CYM/30 PO; -FRS/40 PO; +LACTATED RINGER'S 1000ML IV SCH; -LNX25 PO; -LOSA100T65 PO; -POTA-65 PO; +POTA10CA28 PO; +SACU1TAB7 PO; +VENL-273 PO
[2017-10-24] MEDS ORDERED: BACITRACIN 50000 UNIT VIAL ONE (12:04)
[2017-10-24] MEDS ORDERED: LIDOCAINE HCL 1% 20 ML VIAL ONE (12:04)
[2017-10-24] MEDS ORDERED: BUPIVACAINE 0.25% 30 ML VIAL ONE (12:04)
--- NOTE | 2017-10-24 12:38 | History & Physical Bridge Note ---
H&P Re-Evaluation Bridge Note: I have examined the patient, reviewed the History & Physical and in the interval since the performance of the History & Physical I have noted the following changes of clinical significance:Awaiting INR. Possible PCN allergy No changes noted
--- NOTE | 2017-10-24 12:39 | Pre Sedation Assessment ---
Pre Sedation Assessment General Date of Sedation: Oct 24, 2017. Review Cardiovascular: + irregularly irregular Lungs: lungs clear Pre-Sedation Airway Assessment Smoking Status: Never Smoker Hx of Sleep Apnea: No Hx of difficult intubation: No Short Thick Neck: No Thyro-mental Distance: > 3 Finger Breadths Oral Cavity: WNL Mallampati Classification: Class III ASA Classification: Class III NPO Status Date of Last Intake of Fluids: Oct 23, 2017 Time of Last Intake of Fluids: 2100 Date of Last Intake of Solids: Oct 23, 2017 Time of Last Intake of Solids: 1800 Procedure Planning Contraindications for Sedation: None Current Medications Reviewed: Yes Notes The planned sedation has been discussed with the patient. Informed Consent was obtained. I have identified the patient, determined the appropriateness of sedation and have assessed the patient immediately prior to the procedure. All medicine(s) and interventions are by my order.
[2017-10-24] MEDS ORDERED: MIDAZOLAM HCL 5 MG/ML 1 ML VIAL ONE (12:53)
[2017-10-24] MEDS ORDERED: FENTANYL CITRATE INJ 50 MCG/1 ML 2 ML VIAL ONE (12:53)
[2017-10-24] MEDS ORDERED: FRS/40 PO (12:57)
[2017-10-24] MEDS ORDERED: LOSA1TAB38 PO (12:57)
[2017-10-24 13:30] LABS: INR 2.7 (0.9-1.1)
--- NOTE | 2017-10-24 14:12 | [facility] Operative Report ---
Operative Report Date of Service Oct 24, 2017. Operative Report Procedure performed: Implantation of single-chamber ICD Staff line director: Dougie Riggs MD Indication: The patient is a 67-year-old gentleman with a history ischemic cardiomyopathy who despite optimal medical therapy continues to have low ejection fraction. Ejection fraction is less than 35 percent. He has not suffered a myocardial infarction in the past 40 days nor at revascularization last 90 days. He has class 2 [place] heart [employer] symptoms. He is on optimal medical therapy. He has an anticipated longevity greater than 1 year. Based on these criteria is felt to be a good candidate for an ICD as primary prevention against sudden cardiac . Procedure in detail: The patient was informed of the risks benefits and alternatives to the intended procedure and she wished to proceed. He was taken to the electrophysiology suite in a fasting state. A preoperative antibiotic had been administered. The patient was monitored electrocardiographically throughout today's procedure and conscious sedation was administered per protocol. The left upper pectoral area is prepped and draped in usual sterile fashion. This area was anesthetized using subcutaneous administration of a xylocaine solution. An incision was made at this site and carried down to the prepectoralis fascia using sharp dissection. Electrocautery was also employed for dissection as well as for hemostasis. A device pocket was fashioned tissues above the pectoralis muscle. Subsequent to this maneuver the left axillary vein was accessed using modified Seldinger technique. A sheath was placed over a guidewire at this site and used to facilitate passage of the pacing lead to the right ventricular apex under fluoroscopic guidance. Adequate sensing and threshold parameters were obtained prior to Active fixation of the lead to the endocardial surface. The proximal portion lead was then sutured the prepectoral fascia using nonabsorbable suture. The device pocket was irrigated with antibiotic solution. The lead was then attached to the device. The device and lead were then placed in the pocket and pocket was closed in 3 layers of absorbable suture. Steri-Strips and sterile dressing were applied. The device was tested noninvasively prior to conclusion the procedure. The patient tolerated procedure well there no immediate complications. Equipment used: New pulse generator: Outreach Coordinator [employer] Puppet. Model number:[id number] serial number [id number] Right ventricular lead: Outreach Coordinator [employer]. Model number: 6935 m serial number [id number] Measured data: Right ventricular lead: R-waves measured 12.5 millivolts. Pacing threshold 0.25 volts at 0.4 milliseconds with a pacing impedance of 456 Ohms Impression: Successful implantation of single-chamber ICD I attest to the content of the Intraoperative Record and any orders documented therein. Any exceptions are noted below.
[2017-10-24] MEDS: CLINDAMYCIN IV 600 MG in DEXTROSE 5% 50ML 50 ML IV SCH ×2 (15:47→22:36)
[2017-10-24] MEDS: WARFARIN SOD 2.5 MG TAB PO SCH ×2 (15:49→15:51)
[2017-10-24] MEDS ORDERED: IV FLUIDS COMPLETED PRN (16:00)
[2017-10-24] MEDS ORDERED: MoRPHine SULFATE 2 MG/ML CARP IV PRN (16:15)
[2017-10-24] MEDS: METFORMIN HCL 500 MG TAB PO SCH (16:46)
[2017-10-24] MEDS ORDERED: FUROSEMIDE 40 MG TAB PO SCH (17:00)
[2017-10-24] MEDS: BUMETANIDE 1 MG TAB PO SCH (17:51)
[2017-10-24] MEDS: ACETAMINOPHEN 325 MG TAB PO PRN ×2 (17:53→23:37)
[2017-10-24] MEDS: SACUBITRIL-VALSARTAN 49-51 MG TAB PO SCH (20:10)
[2017-10-24] MEDS: POTASSIUM CHLORIDE 10 MEQ TABCR PO SCH (20:10)
[2017-10-25 00:25] VITALS: BP 128/82; PULSE 86; TEMP 36.6; O2SAT 94
[2017-10-25 03:02] VITALS: BP 127/79; PULSE 83; TEMP 36.9; O2SAT 92
[2017-10-25] MEDS: TRAMADOL HCL 50 MG TAB PO PRN ×2 (03:53→07:53)
[2017-10-25 06:54] VITALS: BP 123/72; PULSE 84; TEMP 36.7; O2SAT 94
[2017-10-25 06:58] VITALS: BP 153/79; PULSE 70; TEMP 36.6; O2SAT 96
[2017-10-25 07:14] LABS: INR 3.1 (0.9-1.1)
--- NOTE | 2017-10-25 07:15 | DIAGNOSTIC IMAGING REPORT ---
TWO VIEW CHEST CLINICAL HISTORY: Cardiac pacemaker implantation. FINDINGS: PA and lateral chest radiographs are compared to study dated 08/06/2017 and correlated with chest CT dated 08/06/2017. A single lead cardiac AICD has been placed and partially obscures the left upper chest. The lead projects over the right ventricle. The heart is markedly enlarged and there is atherosclerotic calcification of the thoracic aorta. There is mild pulmonary vascular congestion. Chronic interstitial thickening is similar to previous. There are small pleural effusions, right larger than left with bibasilar atelectasis. There is no pneumothorax. The skeletal structures are osteopenic. The bony thorax appears intact. IMPRESSION: 1. A single lead cardiac AICD has been placed as above. No pneumothorax is seen post procedure. 2. Marked cardiac enlargement with evidence of mild congestive failure. 3. Small pleural effusions with bibasilar atelectasis. Electronically signed by: Josue Snow M.D. 10/25/2017 7:14 AM Dictated Date/Time: 10/25/2017 7:13 AM
[2017-10-25] MEDS ORDERED: GLIMEPIRIDE 2 MG TAB PO SCH ×2 (07:30)
[2017-10-25] MEDS: METFORMIN HCL 500 MG TAB PO SCH (07:49)
[2017-10-25] MEDS: POTASSIUM CHLORIDE 10 MEQ TABCR PO SCH (07:50)
[2017-10-25] MEDS: SACUBITRIL-VALSARTAN 49-51 MG TAB PO SCH (07:51)
[2017-10-25] MEDS: BUMETANIDE 1 MG TAB PO SCH (07:56)
--- NOTE | 2017-10-25 08:53 | Discharge Instructions ---
Discharge Instructions Date of Service Oct 25, 2017. Admission Reason for Admission: Congestive Heart Failure Discharge Discharge Diagnosis / Problem: Ischemic cardiomyopathy Discharge Goals Goal(s): Improve disease control, Therapeutic intervention Activity Recommendations Activity Limitations: as noted below Lifting Limitations: no more than 10 pounds Exercise/Sports Limitations: until after follow-up appointment May Resume Sexual Activity: when tolerated Shower/Bathe: keep incision dry Driving or Machine Use: resume 1 day after discharge Keep wound dry and Steri-Strips intact until follow-up next week. No lifting left arm above shoulder behind neck for 6 weeks. . Instructions / Follow-Up Instructions / Follow-Up Follow-up in the Cardiology Clinic at [facility] as previously arranged next week Current Hospital Diet Patient's current hospital diet: AHA Diet (Heart Healthy), Diabetes Type 2 Diet Discharge Diet Recommended Diet: AHA Diet (Heart Healthy), Diabetes Type 2 Diet Procedures Procedures Performed: Implantation of single-chamber Medtronic ICD Pending Studies Studies pending at discharge: no Medical Emergencies . Who to Call and When: Medical Emergencies: If at any time you feel your situation is an emergency, please call 911 immediately. . Non-Emergent Contact Non-Emergency issues call your: [employer] . . "Provider Documentation" section prepared by Quinton Riggs. .
[2017-10-25] MEDS ORDERED: ASPIRIN 81 MG ECTAB PO SCH (09:00)
[2017-10-25] MEDS ORDERED: VENLAFAXINE HCL XR 150 MG CAPXR PO SCH (09:00)
[2017-10-25] MEDS ORDERED: CITALOPRAM 40 MG TAB PO SCH (09:00)
[2017-10-25] MEDS ORDERED: METOPROLOL SUCC 50MG EXT REL TAB PO SCH (09:00)
[2017-10-25] MEDS ORDERED: LOSARTAN POTASSIUM 50 MG TAB PO SCH (09:00)
[2017-10-25] MEDS ORDERED: ATORVASTATIN 40 MG TAB PO SCH (09:00)
[2017-10-25] MEDS ORDERED: POTASSIUM CHLORIDE 10 MEQ TABCR PO SCH (09:00)
[2017-10-25 09:43] VITALS: BP 153/79; PULSE 70; TEMP 36.6; O2SAT 96
== END 2017-10-25 10:35 | disposition home or self-care (01) ==
LOC: C.ACU 10:46 → ENRESERV 13:30 → C.2T 13:33
PROVIDERS: ADMIT Internal Medicine Clinical Cardiac Electrophysiology; ATTEND Internal Medicine Clinical Cardiac Electrophysiology
DX: I25.5 Ischemic cardiomyopathy (principal); I48.0 Paroxysmal atrial fibrillation; I25.10 Atherosclerotic heart disease of native coronary artery without angina pectoris; I11.0 Hypertensive heart disease with heart failure; I50.42 Chronic combined systolic (congestive) and diastolic (congestive) heart failure; E78.00 Pure hypercholesterolemia, unspecified; G47.33 Obstructive sleep apnea (adult) (pediatric); M19.90 Unspecified osteoarthritis, unspecified site; I25.2 Old myocardial infarction; Z90.49 Acquired absence of other specified parts of digestive tract; Z79.01 Long term (current) use of anticoagulants; Z82.49 Family history of ischemic heart disease and other diseases of the circulatory system; Z88.5 Allergy status to narcotic agent; Z88.0 Allergy status to penicillin

== ENCOUNTER 2018-11-18 16:25 | Inpatient (IN) ==
[~2018-11-18 16:25] MED LIST changes: +ALBUMIN 25% 50 ML IV ONE; -ASPI81TA28 PO; -ATOR-24 PO; -BMX1 PO; -CLINDAMYCIN 600 MG/54 ML D5W IV SCH; -GLCSR500 PO; -GLIM2TAB2 PO; -GLIM4TAB2 PO; -LACTATED RINGER'S 1000ML IV SCH; -METO100T44 PO; -POTA10CA28 PO; -SACU1TAB7 PO; -VENL-273 PO; -WARF-246 PO
[2018-11-18 17:08] LABS: Basophils # (auto) 0.01 K/uL (0-0.2); Basophils % (auto) 0.1 %; Eosinophils # (auto) 0.09 K/uL (0-0.5); Eosinophils % (auto) 1.1 %; Hematocrit (blood only) 39.1 % (42-52); Hemoglobin 14.2 g/dL (14.0-18.0); Immature Granulocytes # (auto) 0.03 K/uL (0.00-0.02); Immature Granulocytes % (auto) 0.4 %; Lymphocytes # (auto) 0.83 K/uL (1.2-3.4); Mean Corpuscular Hemoglobin 32.1 pg (25-34); Mean Corpuscular Hgb Conc 36.3 g/dL (32-36); Mean Corpuscular Volume 88.5 fL (80-100); Mean Platelet Volume 10.1 fL (7.4-10.4); Monocytes # (auto) 0.77 K/uL (0.11-0.59); Monocytes % (auto) 9.3 %; Neutrophils # (auto) 6.59 K/uL (1.4-6.5); Neutrophils % (auto) 79.1 %; Nucleated RBC # (auto) 0.02 K/uL (0-0); Nucleated RBC % (auto) 0.2 %; Platelet Count 178 K/uL (130-400); RDW Coefficient of Variation 15.1 % (11.5-14.5); RDW Standard Deviation 48.4 fL (36.4-46.3); Red Blood Count 4.42 M/uL (4.7-6.1); White Blood Count 8.32 K/uL (4.8-10.8)
[2018-11-18 17:20] LABS: INR 2.9 (0.9-1.1); Partial Thromboplastin Ratio 1.3; Partial Thromboplastin Time 36.1 Seconds (21.0-31.0); Prothrombin Time 27.9 Seconds (9.0-12.0)
[2018-11-18 17:26] LABS: Albumin Level 3.6 gm/dl (3.4-5.0); BUN Creatinine Ratio 33.8 (10-20); Creatinine Clr Calc Pharmacy 35.9 ml/min; Est GFR (African American) 31.4; Est GFR (Non-African American) 27.1; Magnesium 2.2 mg/dl (1.8-2.4); Potassium 3.8 mmol/L (3.5-5.1)
[2018-11-18 17:31] LABS: Bilirubin,Total 0.9 mg/dl (0.2-1); Globulin 3.7 gm/dl (2.5-4.0); Total Protein 7.3 gm/dl (6.4-8.2); Troponin I 0.027 ng/ml (0-0.045)
[2018-11-18] MEDS ORDERED: SODIUM CHLORIDE 0.9% 1000ML 250 ML IV ONE (17:42)
--- NOTE | 2018-11-18 17:44 | XRay Report ---
XR chest 1V portable HISTORY: Dyspnea COMPARISON: Chest 11/14/2018. FINDINGS: Cardiac silhouette remains severely enlarged. No pleural effusions. No pneumothorax. No foc al lung consolidations to suggest pneumonia. No evidence for pulmonary edema. Left-sided pacemaker/de fibrillator is again noted. IMPRESSION: No significant change compared to the prior study. No acute process. Stable cardiomegaly. Electronically signed by: Jeramy Esquivel M.D. 11/18/2018 5:43 PM
[2018-11-18 19:04] LABS: Appearance Urine Clear (Clear); Bilirubin Urine Negative (Negative); Blood Urine Negative (Negative); Color Urine Yellow; Glucose Urine UA Negative (Negative); Ketones Urine Negative (Negative); Leukocyte Esterase Urine Negative (Negative); Nitrite Urine Negative (Negative); Protein Urine Negative (Negative); Urobilinogen Urine Negative (Negative)
--- NOTE | 2018-11-18 19:58 | History & Physical Report ---
Date of Service November 18, 2018 Assessment & Plan (1) SOB (shortness of breath): Multifactorial : ? CHF, ? Cardiorenal syndrome chronic systolic heart failure secondary to ischemic cardiomyopathy (EF of 25- 30% TTE 2018) sp PPM volume status equivocal - patient states that he gained 10 pounds on home scale the last 2 weeks. (Current ER weight close to last documented outpatient weight at the clinic.) Patient however hypotensive with hyponatremia, ARF on CRI likely secondary to recent diuretic regimen changes, Complicated bronchitis, no sepsis Abdominal distention rule out ascites history CAD as per records AFib on Coumadin, rate controlled, INR therapeutic valvular heart disease (MR, TR, AR) hyperlipidemia on statin Rx DM2, insulin requiring, suboptimal control as of recent outpatient hemoglobin A1c of 9.7 last August 2018 chronic anemia secondary to CKD, hemoglobin at baseline PCU Careful correction of sodium with gentle IV hydration, especially systolic dysfunction history Cardiology consult RE CHF follow-up Nephrology consult RE ARF on CRI, hyponatremia Doxycycline for complicated bronchitis Limited abdominal ultrasound to rule out ascites basal insulin, ISS BG goal 1 40-180, carb count coverage DVT prophylaxis. Coumadin INR goal between 2- 3 Full code History of Present Illness Chief Complaint: Shortness of breath, dizziness, weight gain Primary Care Provi rob: Delmer Gracia MD History obtained from patient and records. Medical history significant for chronic systolic heart failure secondary to ischemic cardiomyopathy (EF of 25-30% TTE 2018) sp PPM, history CAD as per records, history of AFib on Coumadin, valvular heart disease (MR, TR, AR), HTN, hyperlipidemia, DM2, insulin requiring, ANTOINETTE on CPAP, anxiety/mood disorder, CRI (baseline creatinine 1.3-1.4, chronic anemia (baseline hemoglobin of 13). Recent confinement April 2018 for gastroenteritis. Patient seen by [facility] on 3 occasions last month for weight gain, exertional shortness of breath despite changes with diuretic regimen. Recent outpatient TTE showed unchanged LV systolic function on initial read as per documentation. Denies dietary indiscretion. The last few days patient noted junky cough symptoms with some shortness of breath. No aspiration, no fever, no chills, unsure about sick contacts. Patient noted dizziness symptoms described as lightheadedness. Weight gain of 10 pounds in the last 2 weeks using home scale despite compliance with diuretic regimen changes. Patient given NSS upon arrival at the ER. 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 Allergies Allergy/AdvReac Type Severity Reaction Status Date / Time Penicillins Allergy Mild childhood Verified 11/18/18 17:11 reaction codeine AdvReac Mild NAUSEA, Verified 11/18/18 17:11 LIGHTHEADEDNESS simvastatin AdvReac Mild makes him Verified 11/18/18 17:11 feel like he is high Home Medications Home Medications Medication Instructions Recorded Confirmed Type aspirin 81 mg PO QAM 01/25/18 11/18/18 History atorvastatin 40 mg PO QPM 01/25/18 11/18/18 History metoprolol succinate 100 mg PO BID 01/25/18 11/18/18 History potassium chloride 10 meq PO BID 01/25/18 11/18/18 History venlafaxine 150 mg PO BID 01/25/18 11/18/18 History warfarin 5 mg PO WK 01/25/18 11/18/18 History warfarin 2.5 mg PO 6XWK 02/17/18 11/18/18 History digoxin 125 mcg PO Q OTHER DAY 05/10/18 11/18/18 History Lantus Solostar U-100 Insulin 35 unit SUBCUT QAM 08/17/18 11/18/18 History Novolog Flexpen U-100 Insulin 0 units SQ TIDM 09/11/18 11/18/18 History allopurinol 100 mg PO QAM 09/11/18 11/18/18 History meclizine 25 mg PO TID PRN 09/11/18 11/18/18 History allopurinol 300 mg PO QAM 09/26/18 11/18/18 History torsemide 100 mg tablet 100 - 200 mg PO BID tab 11/09/18 11/18/18 History colchicine [Colcrys] 0.6 mg PO BID 11/18/18 11/18/18 History sacubitril-valsartan [Entresto] 2 tab PO BID 11/18/18 11/18/18 History Past Med/Surg History Medical History Systolic and diastolic 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 CARDIAC CATH WITH 2 STENTS Anxiety (Inactive) Ischemic dilated cardiomyopathy (Inactive) Gout Surgical History History of cataract surgery (Resolved) BILATERAL AICD (automatic cardioverter/defibrillator) present (Chronic) placed on 10/24/17 [employer] DEVICE. LAST CHECKED [address] DOMINGUEZ[facility]. PLACED IN OCTOBER 2017 AT [facility] History of partial colectomy (Resolved) "[facility]/ ilieorectal anast/ multiple polyps 2008" History of bowel resection (Resolved) MASSIVE POLPYS History of heart artery stent (Resolved) History of cardiac cath (Inactive) 1989 --> X2 STENTS. BARE METAL STENTS ~1992 --> X2 STENTS. DRUG ELUTING STENTS. History of colonoscopy (Inactive) Stented coronary artery (Inactive) "stents x 4 to RCA and LAD 1997" Family History Mother Coronary heart disease Diabetes Father Lung cancer Sister Diabetes Social History Preferred Language: Salvadorean Communication Ability: Effective Tax Technician Required: No Beliefs That Will Affect Care: None marital status: Current Living Situation: Spouse Other Information That Helps Us Care for You: No Feels Safe at Home: Yes Safety Concerns: Feels Safe At This Time Smoking Status: Never smoker Do You Dip or Chew Tobacco: No ; Second Hand Exposure: No ; Tobacco Cessation Education Requested by Patient: No Hx Alcohol Use: No Hx Substance Use: No Review of Systems Review of Systems: As per HPI, all 10 systems reviewed, all other ROS negative Physical Exam Physical Exam: GENERAL: Comfortable, watching television, obese, no respiratory distress SKIN: Pallor, warm HEENT: Bespectacled, pale palpebral conjunctivae, no ptosis, dry buccal mucosa NECK : Supple, short neck, no tenderness CHEST : Decreased breath sounds, occasional expiratory wheeze, no tenderness HEART : Irregular, systolic murmur ABDOMEN: Healed incisional scar, markedly distention, nontender EXTREMITIES : Bilateral LE swelling, no LE tenderness, no other conspicuous d eformities noted NEUROLOGIC : Coherent, no facial asymmetry, no other gross focality Results & Data Vital Signs (Past 12 Hours) Vital Signs Temp Pulse Resp BP Pulse Ox 11/18/18 17:04 96 11/18/18 16:36 36.7 C 90 20 92/58 L 96 11/18/18 16:25 96 Laboratory Results Laboratory Results WBC 8.32 K/uL (4.8-10.8) 11/18/18 16:40 RBC 4.42 M/uL (4.7-6.1) L 11/18/18 16:40 Hgb 14.2 g/dL (14.0-18.0) 11/18/18 16:40 Hct 39.1 % (42-52) L 11/18/18 16:40 MCV 88.5 fL (80-100) 11/18/18 16:40 MCH 32.1 pg (25-34) 11/18/18 16:40 MCHC 36.3 g/dL (32-36) H 11/18/18 16:40 RDW Std Deviation 48.4 fL (36.4-46.3) H 11/18/18 16:40 RDW Coeff of Joe 15.1 % (11.5-14.5) H 11/18/18 16:40 Plt Count 178 K/uL (130-400) 11/18/18 16:40 MPV 10.1 fL (7.4-10.4) 11/18/18 16:40 Immature Gran % (Auto) 0.4 % 11/18/18 16:40 Neut % (Auto) 79.1 % 11/18/18 16:40 Lymph % (Auto) 10.0 % 11/18/18 16:40 [place] % (Auto) 9.3 % 11/18/18 16:40 Eos % (Auto) 1.1 % 11/18/18 16:40 Baso % (Auto) 0.1 % 11/18/18 16:40 Immature Gran # (Auto) 0.03 K/uL (0.00-0.02) H 11/18/18 16:40 Neut # (Auto) 6.59 K/uL (1.4-6.5) H 11/18/18 16:40 Lymph # (Auto) 0.83 K/uL (1.2-3.4) L 11/18/18 16:40 [place] # (Auto) 0.77 K/uL (0.11-0.59) H 11/18/18 16:40 Eos # (Auto) 0.09 K/uL (0-0.5) 11/18/18 16:40 Baso # (Auto) 0.01 K/uL (0-0.2) 11/18/18 16:40 Absolute Nucleated RBC 0.02 K/uL (0-0) H 11/18/18 16:40 Nucleated RBC % (auto) 0.2 % 11/18/18 16:40 PT 27.9 Seconds (9.0-12.0) H 11/18/18 16:40 INR 2.9 (0.9-1.1) H 11/18/18 16:40 APTT 36.1 Seconds (21.0-31.0) H 11/18/18 16:40 PTT Ratio 1.3 11/18/18 16:40 Sodium 122 mmol/L (136-145) L 11/18/18 16:40 Potassium 3.8 mmol/L (3.5-5.1) 11/18/18 16:40 Chloride 78 mmol/L (98-107) L 11/18/18 16:40 Carbon Dioxide 34 mmol/L (21-32) H 11/18/18 16:40 Anion Gap 10.0 (3-11) 11/18/18 16:40 BUN 80 mg/dl (7-18) H 11/18/18 16:40 Creatinine 2.37 mg/dl (0.6-1.4) H 11/18/18 16:40 Est Cr Clr Drug Dosing 35.9 ml/min 11/18/18 16:40 Est GFR ( Amer) 31.4 11/18/18 16:40 Est GFR (Non-Af Amer) 27.1 11/18/18 16:40 BUN/Creatinine Ratio 33.8 (10-20) H 11/18/18 16:40 Glucose 270 mg/dl (70-99) H 11/18/18 16:40 Osmolality 294 mOsm/kg (280-300) 11/18/18 16:41 Calcium 9.0 mg/dl (8.5-10.1) 11/18/18 16:40 Magnesium 2.2 mg/dl (1.8-2.4) 11/18/18 16:40 Total Bilirubin 0.9 mg/dl (0.2-1) 11/18/18 16:40 AST 26 U/L (15-37) 11/18/18 16:40 ALT 26 U/L (12-78) 11/18/18 16:40 Alkaline Phosphatase 90 U/L (45-117) 11/18/18 16:40 Troponin I 0.027 ng/ml (0-0.045) 11/18/18 16:40 Total Protein 7.3 gm/dl (6.4-8.2) 11/18/18 16:40 Albumin 3.6 gm/dl (3.4-5.0) 11/18/18 16:40 Globulin 3.7 gm/dl (2.5-4.0) 11/18/18 16:40 Albumin/Globulin Ratio 1.0 (0.9-2) 11/18/18 16:40 Urine Color Yellow 11/18/18 18:53 Urine Appearance Clear (Clear) 11/18/18 18:53 Urine pH 7.0 (4.5-7.5) 11/18/18 18:53 Ur Specific [place] 1.010 (1.000-1.030) 11/18/18 18:53 Urine Protein Negative (Negative) 11/18/18 18:53 Urine Glucose (UA) Negative (Negative) 11/18/18 18:53 Urine Ketones Negative (Negative) 11/18/18 18:53 Urine Blood Negative (Negative) 11/18/18 18:53 Urine Nitrite Negative (Negative) 11/18/18 18:53 Urine Bilirubin Negative (Negative) 11/18/18 18:53 Urine Urobilinogen Negative (Negative) 11/18/18 18:53 Ur Leukocyte Esterase Negative (Negative) 11/18/18 18:53 Diagnostic Findings Chest x-ray showed No significant change compared to the prior study. No acute process. Stable cardiomegaly. EKG as per my interpretation : Rate 80, A. fib, normal axis, diffuse T wave flattening
[2018-11-18 20:07] LABS: Thyroid Stimulating Hormone 2.52 uIu/ml (0.300-4.500)
[2018-11-18] MEDS ORDERED: DOXYCYCLINE HYCLATE 100 MG in DEXTROSE 5% 100 ML IV STA (20:11)
--- NOTE | 2018-11-18 21:26 | Ultrasound Report ---
US abdomen ltd ascites CLINICAL HISTORY: Abdominal distention. Assess for ascites. COMPARISON STUDY: Abdomen and pelvis CT 05/10/2018. FINDINGS: Transabdominal scanning of the abdomen and pelvis was performed with correspondence representative images submitted. No evidence for ascites. IMPRESSION: No ascites. Electronically signed by: Jeramy Esquivel M.D. 11/18/2018 9:25 PM
[2018-11-18] MEDS ORDERED: ALBUT/IPRATROP 3MG/0.5MG NEB 3 ML VIAL NEB STA (21:44)
[2018-11-18] MEDS ORDERED: OXYCODONE HCL IR 5 MG TAB (IMMEDIATE RELEASE) PO PRN (21:44)
[2018-11-18] MEDS ORDERED: PROMETHAZINE HCL 12.5 MG in SODIUM CHLORIDE 0.9% 50 ML IV PRN (21:44)
[2018-11-18] MEDS ORDERED: GLUCOSE 10 TABS/TUBE PO PRN (21:44)
[2018-11-18] MEDS ORDERED: LEVALBUTEROL 1.25MG/0.5ML NEB INH PRN (21:44)
[2018-11-18] MEDS ORDERED: NITROGLYCERIN SL 0.4 MG/TAB TAB SL PRN (21:44)
[2018-11-18] MEDS ORDERED: GLUCAGON FOR INJ 1 MG VIAL SQ PRN (21:44)
[2018-11-18] MEDS ORDERED: IPRATROPIUM BROMIDE NEB SOLN 0.02% 2.5 ML VIAL INH PRN (21:44)
[2018-11-18] MEDS ORDERED: XOPENEX/ATROVENT 1.25mg/0.5MG NEB COMBO NEB PRN (21:44)
[2018-11-18] MEDS ORDERED: GLUCOSE 40% GEL 15 GM TUBE PO PRN (21:44)
[2018-11-18] MEDS ORDERED: CARBOHYDRATES FOR HYPOGLYCEMIA PO PRN (21:44)
[2018-11-18] MEDS ORDERED: INSULIN GLARGINE SOLOSTAR 100 UNITS/ML 3 ML PEN SQ STA (21:44)
[2018-11-18] MEDS ORDERED: ACETAMINOPHEN 325 MG TAB PO PRN (21:44)
[2018-11-18] MEDS ORDERED: DEXTROSE 50% 50 ML SYRINGE IV PRN (21:44)
[2018-11-18] MEDS: COLCHICINE 0.6 MG TAB PO SCH (22:13)
[2018-11-18] MEDS: VENLAFAXINE HCL XR 150 MG CAPXR PO SCH (22:14)
[2018-11-18] MEDS: ATORVASTATIN 40 MG TAB PO SCH (22:16)
--- NOTE | 2018-11-18 22:43 | Emergency Department Note ---
Entered by Tila Razo acting as a scribe for Carmen Palomo MD History of Present Illness General Chief complaint: Shortness of Breath/Dyspnea Stated complaint: DIZZY - LIGHT HEADED - SOB Source: patient History of Present Illness Onset (ago): day(s) (yesterday) Location: chest Pain Consistency: + constant Quality: + other (shortness of breath) Associated symptoms: + denies other symptoms (leg swelling), + cough and + other (lightheadedness, dizziness) The patient is a 68 year old male who presents to the Emergency Room with complaints of constant shortness of breath beginning yesterday. The patient notes he was not doing much when the shortness of breath began. The patient also reports lightheadedness, dizziness, and coughing. He denies leg swelling. The patient states that he has a history of diabetes, and currently takes insulin and NovoLog. He reports taking 15 units of NovoLog approximately five hours ago. He notes that his blood sugar, which he takes himself, was 412 this morning. He reports constant a-fib, and states that he is currently taking Coumadin, the last dose taken this morning. Home Medications Home Medications Medication Instructions Recorded Confirmed Type aspirin 81 mg PO QAM 01/25/18 11/18/18 History atorvastatin 40 mg PO QPM 01/25/18 11/18/18 History metoprolol succinate 100 mg PO BID 01/25/18 11/18/18 History potassium chloride 10 meq PO BID 01/25/18 11/18/18 History venlafaxine 150 mg PO BID 01/25/18 11/18/18 History warfarin 5 mg PO WK 01/25/18 11/18/18 History warfarin 2.5 mg PO 6XWK 02/17/18 11/18/18 History digoxin 125 mcg PO Q OTHER DAY 05/10/18 11/18/18 History Lantus Solostar U-100 Insulin 35 unit SUBCUT QAM 08/17/18 11/18/18 History Novolog Flexpen U-100 Insulin 0 units SQ TIDM 09/11/18 11/18/18 History allopurinol 100 mg PO QAM 09/11/18 11/18/18 History meclizine 25 mg PO TID PRN 09/11/18 11/18/18 History allopurinol 300 mg PO QAM 09/26/18 11/18/18 History torsemide 100 mg tablet 100 - 200 mg PO BID tab 11/09/18 11/18/18 History colchicine [Colcrys] 0.6 mg PO BID 11/18/18 11/18/18 History sacubitril-valsartan [Entresto] 2 tab PO BID 11/18/18 11/18/18 History Allergies Allergy/AdvReac Type Severity Reaction Status Date / Time Penicillins Allergy Mild childhood Verified 11/18/18 17:11 reaction codeine AdvReac Mild NAUSEA, Verified 11/18/18 17:11 LIGHTHEADEDNESS simvastatin AdvReac Mild makes him Verified 11/18/18 17:11 feel like he is high Past Med/Surg History Medical History Systolic and diastolic CHF, chronic (Chronic) 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 CARDIAC CATH WITH 2 STENTS Anxiety (Inactive) Ischemic dilated cardiomyopathy (Inactive) Gout Surgical History History of cataract surgery (Resolved) BILATERAL AICD (automatic cardioverter/defibrillator) present (Chronic) placed on 10/24/17 SureGeneTRONIC DEVICE. LAST CHECKED [address] DOMINGUEZ[facility]. PLACED IN OCTOBER [address] [facility] History of partial colectomy (Resolved) "[facility]/ ilieorectal anast/ multiple polyps 2008" History of bowel resection (Resolved) MASSIVE POLPYS History of heart artery stent (Resolved) History of cardiac cath (Inactive) 1989 --> X2 STENTS. BARE METAL STENTS ~1992 --> X2 STENTS. DRUG ELUTING STENTS. History of colonoscopy (Inactive) Stented coronary artery (Inactive) "stents x 4 to RCA and LAD 1997" Family History Mother Coronary heart disease Diabetes Father Lung cancer Sister Diabetes Social History Preferred Language: [place] Communication Ability: Effective Fisher Trammel Net Required: No Beliefs That Will Affect Care: None marital status: Current Living Situation: Spouse Other Information That Helps Us Care for You: No Feels Safe at Home: Yes Safety Concerns: Feels Safe At This Time Smoking Status: Never smoker Do You Dip or Chew Tobacco: No ; Second Hand Exposure: No ; Tobacco Cessation Education Requested by Patient: No Hx Alcohol Use: No Hx Substance Use: No Review of Systems See HPI for pertinent positives & negatives. and A total of 10 systems reviewed and were otherwise negative Physical Exam Vital Signs Vital Signs - 24 hr 11/18/18 16:25 11/18/18 16:36 11/18/18 17:04 Temperature 36.7 C Temperature Source Oral Sepsis Recent Fever Within 48 Hours No Sepsis New/Unexplained Change in Mental Status No Sepsis Action Taken by Nursing No Action Required Pulse Rate 90 Pulse Rate [Right Finger] Respiratory Rate 20 Blood Pressure 92/58 L Blood Pressure [Left Arm] Blood Pressure Mean 69 Blood Pressure Mean [Left Arm] Blood Pressure Position Sitting Pulse Oximetry 96 96 96 Oxygen Delivery Method Room Air Room Air Room Air 11/18/18 20:00 Temperature Temperature Source Sepsis Recent Fever Within 48 Hours Sepsis New/Unexplained Change in Mental Status Sepsis Action Taken by Nursing Pulse Rate Pulse Rate [Right Finger] 76 Respiratory Rate 20 Blood Pressure Blood Pressure [Left Arm] 120/60 Blood Pressure Mean Blood Pressure Mean [Left Arm] 80 Blood Pressure Position Pulse Oximetry 98 Oxygen Delivery Method Vital signs reviewed. General: Well-appearing older male, in no significant distress. HEENT: No scleral icterus, PERRLA, neck supple. Atraumatic. Cardiovascular: Rate controlled and irregular, no extra sounds. Pulmonary: Clear to auscultation bilaterally, normal work of breathing. Abdomen: Obese. Multiple superficial ecchymotic areas. Post surgical well-healed vertical incision. Soft, nontender, nondistended, positive bowel sounds. Musculoskeletal: Atraumatic, minimal peripheral edema. Venous stasis to bilateral lower extremities. Neurologic: Patient awake alert and oriented x 3 Skin: Warm, dry, no rash Course 1655: Past medical records reviewed. The patient was evaluated in room A11A. A complete history and physical exam was performed. 1908: Upon reevaluation, I discussed findings and results with the patient. He verbalized agreement of the treatment plan. [facility] The patient will be evaluated for further management and care. Administered Medications Allopurinol (Zyloprim) 300 mg PO QAM ASHLEIGH Stop: 12/19/18 08:59 Last Admin: 11/19/18 08:04 Dose: 300 mg Documented by: [id number] Aspirin (Ecotrin Ectab) 81 mg PO QAM ASHLEIGH Stop: 12/19/18 08:59 Last Admin: 11/19/18 08:04 Dose: 81 mg Documented by: [id number] Atorvastatin Calcium (Lipitor) 40 mg PO QPM ASHLEIGH Stop: 12/18/18 21:43 Last Admin: 11/19/18 20:45 Dose: 40 mg Documented by: [id number] Admin: 11/18/18 22:16 Dose: 40 mg Documented by: [id number] Colchicine (Colcrys) 0.6 mg PO BID ASHLEIGH Stop: 12/18/18 21:43 Last Admin: 11/19/18 20:47 Dose: 0.6 mg Documented by: [id number] Admin: 11/19/18 08:04 Dose: 0.6 mg Documented by: [id number] Admin: 11/18/18 22:13 Dose: 0.6 mg Documented by: [id number] Doxycycline Hyclate (Vibramycin) 100 mg PO BID ASHLEIGH Stop: 11/26/18 08:59 Last Admin: 11/19/18 20:49 Dose: 100 mg Documented by: [id number] Admin: 11/19/18 08:04 Dose: 100 mg Documented by: [id number] Insulin Aspart (Novolog Flexpen) 0 units SC ACHS ASHLEIGH Stop: 12/18/18 21:43 Last Admin: 11/19/18 21:02 Dose: 5 units Documented by: [id number] Cosigned by: [id number] Admin: 11/19/18 17:33 Dose: 8 units Documented by: [id number] Cosigned by: [id number] Admin: 11/19/18 12:27 Dose: 7 units Documented by: [id number] Cosigned by: [id number] Admin: 11/19/18 08:08 Dose: 6 units Documented by: [id number] Cosigned by: [id number] Admin: 11/18/18 22:53 Dose: 6 units Documented by: [id number] Cosigned by: [id number] Insulin Glargine (Lantus Solostar Pen) 30 units SQ BID ASHLEIGH Stop: 12/19/18 19:59 Last Admin: 11/19/18 21:00 Dose: 30 units Documented by: [id number] Cosigned by: [id number] Metoprolol Succinate (Toprol Xl) 25 mg PO BID ASHLEIGH Stop: 12/19/18 08:59 Last Admin: 11/19/18 20:47 Dose: 25 mg Documented by: [id number] Admin: 11/19/18 08:05 Dose: 25 mg Documented by: [id number] Venlafaxine HCl (Effexor Extended Release) 150 mg PO BID ASHLEIGH Stop: 12/18/18 21:43 Last Admin: 11/19/18 20:45 Dose: 150 mg Documented by: [id number] Admin: 11/19/18 08:05 Dose: 150 mg Documented by: [id number] Admin: 11/18/18 22:14 Dose: 150 mg Documented by: [id number] Discontinued Medications Albuterol (Duoneb) 3 ml NEB NOW STA Stop: 11/18/18 21:45 Last Admin: 11/18/18 22:34 Dose: 3 ml Documented by: [id number] Allopurinol (Zyloprim) 100 mg PO QAM ASHLEIGH Stop: 12/19/18 08:59 Last Admin: 11/19/18 08:05 Dose: 100 mg Documented by: [id number] Allopurinol (Zyloprim) 100 mg PO ONE ONE Stop: 11/19/18 09:37 Last Admin: 11/19/18 10:34 Dose: 100 mg Documented by: [id number] Sodium Chloride (Nss 1000ml) 250 mls @ 999 mls/hr IV .Q16M ONE Stop: 11/18/18 17:57 Last Infusion: 11/18/18 18:25 Dose: 0 mls/hr Documented by: [id number] Admin: 11/18/18 18:05 Dose: 999 mls/hr Documented by: [id number] Doxycycline Hyclate 100 mg/ (Dextrose) 110 mls @ 50 mls/hr IV NOW STA Stop: 11/18/18 22:22 Last Infusion: 11/19/18 00:38 Dose: 0 mls/hr Documented by: [id number] Admin: 11/18/18 22:12 Dose: 50 mls/hr Documented by: [id number] Albumin Human (Albumin 25%) 50 mls @ 50 mls/hr IV ONE ONE Stop: 11/18/18 23:44 Last Infusion: 11/19/18 00:34 Dose: 0 mls/hr Documented by: [id number] Admin: 11/18/18 23:55 Dose: 50 mls/hr Documented by: [id number] Albumin Human (Albumin 25%) 50 mls @ 50 mls/hr IV ONE ONE Stop: 11/19/18 00:59 Last Infusion: 11/19/18 01:46 Dose: 0 mls/hr Documented by: [id number] Admin: 11/19/18 00:33 Dose: 50 mls/hr Documented by: [id number] Sodium Chloride (Nss) 500 mls @ 50 mls/hr IV .Q10H ONE Stop: 11/19/18 12:28 Last Infusion: 11/19/18 02:54 Dose: 0 mls/hr Documented by: [id number] Admin: 11/19/18 02:43 Dose: 50 mls/hr Documented by: [id number] Albumin Human (Albumin 25%) 50 mls @ 50 mls/hr IV ONE ONE Stop: 11/19/18 03:29 Last Infusion: 11/19/18 04:03 Dose: 0 mls/hr Documented by: [id number] Admin: 11/19/18 02:44 Dose: 50 mls/hr Documented by: [id number] Sodium Chloride (Nss) 500 mls @ 40 mls/hr IV .[id number] ONE Stop: 11/19/18 15:07 Last Infusion: 11/19/18 07:30 Dose: 0 mls/hr Documented by: [id number] Infusion: 11/19/18 07:30 Dose: 0 mls/hr Documented by: [id number] Admin: 11/19/18 02:55 Dose: 40 mls/hr Documented by: [id number] Insulin Glargine (Lantus Solostar Pen) 20 units SQ BID ASHLEIGH Stop: 12/19/18 08:59 Last Admin: 11/19/18 08:06 Dose: 20 units Documented by: [id number] Cosigned by: [id number] Insulin Glargine (Lantus Solostar Pen) 10 units SQ NOW STA Stop: 11/18/18 21:45 Last Admin: 11/18/18 22:15 Dose: 10 units Documented by: [id number] Cosigned by: [id number] Potassium Chloride (Klor-Con M20) 40 meq PO Q6H ASHLEIGH Stop: 11/19/18 20:01 Last Admin: 11/19/18 20:46 Dose: 40 meq Documented by: [id number] Admin: 11/19/18 14:27 Dose: 40 meq Documented by: [id number] Admin: 11/19/18 09:01 Dose: 40 meq Documented by: [id number] Potassium Chloride (Klor-Con M20) 40 meq PO NOW STA Stop: 11/19/18 19:58 Last Admin: 11/19/18 21:03 Dose: 40 meq Documented by: [id number] Potassium Chloride (Klor-Con M20) 40 meq PO ONE ONE Stop: 11/19/18 22:01 Last Admin: 11/19/18 21:03 Dose: 40 meq Documented by: [id number] Warfarin Sodium (Coumadin) 5 mg PO NOW ONE Stop: 11/19/18 19:19 Last Admin: 11/19/18 20:44 Dose: 5 mg Documented by: [id number] Medical Decision Making Differential Diagnosis Differential diagnoses includes but is not limited to pneumonia, bronchitis, COPD/Asthma exacerbation, pneumothorax, pulmonary embolism, congestive heart failure, acute coronary syndrome Medical Records Attestation: I reviewed the patient's medical records. Home Medications Current Medication List: was personally reviewed by me Laboratory Data Attestation: I reviewed the patient's lab results. Result diagrams: 11/19/18 06:15 11/19/18 18:46 Lab Results 11/18/18 11/18/18 11/18/18 Range/Units 16:40 16:40 16:40 WBC 8.32 (4.8-10.8) K/uL RBC 4.42 L (4.7-6.1) M/uL Hgb 14.2 (14.0-18.0) g/dL Hct 39.1 L (42-52) % MCV 88.5 (80-100) fL MCH 32.1 (25-34) pg MCHC 36.3 H (32-36) g/dL RDW Std Deviation 48.4 H (36.4-46.3) fL RDW Coeff of Joe 15.1 H (11.5-14.5) % Plt Count 178 (130-400) K/uL MPV 10.1 (7.4-10.4) fL Immature Gran % (Auto) 0.4 % Neut % (Auto) 79.1 % Lymph % (Auto) 10.0 % Chaves % (Auto) 9.3 % Eos % (Auto) 1.1 % Baso % (Auto) 0.1 % Immature Gran # (Auto) 0.03 H (0.00-0.02) K/uL Neut # (Auto) 6.59 H (1.4-6.5) K/uL Lymph # (Auto) 0.83 L (1.2-3.4) K/uL Chaves # (Auto) 0.77 H (0.11-0.59) K/uL Eos # (Auto) 0.09 (0-0.5) K/uL Baso # (Auto) 0.01 (0-0.2) K/uL Absolute Nucleated RBC 0.02 H (0-0) K/uL Nucleated RBC % (auto) 0.2 % PT 27.9 H (9.0-12.0) Seconds INR 2.9 H (0.9-1.1) APTT 36.1 H (21.0-31.0) Seconds PTT Ratio 1.3 Sodium 122 L (136-145) mmol/L Potassium 3.8 (3.5-5.1) mmol/L Chloride 78 L (98-107) mmol/L Carbon Dioxide 34 H (21-32) mmol/L Anion Gap 10.0 (3-11) BUN 80 H (7-18) mg/dl Creatinine 2.37 H (0.6-1.4) mg/dl Est Cr Clr Drug Dosing 35.9 ml/min Est GFR ( Amer) 31.4 Est GFR (Non-Af Amer) 27.1 BUN/Creatinine Ratio 33.8 H (10-20) Glucose 270 H (70-99) mg/dl Osmolality (280-300) mOsm/kg Calcium 9.0 (8.5-10.1) mg/dl Magnesium 2.2 (1.8-2.4) mg/dl Total Bilirubin 0.9 (0.2-1) mg/dl AST 26 (15-37) U/L ALT 26 (12-78) U/L Alkaline Phosphatase 90 (45-117) U/L Troponin I 0.027 (0-0.045) ng/ml Total Protein 7.3 (6.4-8.2) gm/dl Albumin 3.6 (3.4-5.0) gm/dl Globulin 3.7 (2.5-4.0) gm/dl Albumin/Globulin Ratio 1.0 (0.9-2) TSH 2.520 (0.300-4.500) uIu/ml Urine Color Urine Appearance (Clear) Urine pH (4.5-7.5) Ur Specific [place] (1.000-1.030) Urine Protein (Negative) Urine Glucose (UA) (Negative) Urine Ketones (Negative) Urine Blood (Negative) Urine Nitrite (Negative) Urine Bilirubin (Negative) Urine Urobilinogen (Negative) Ur Leukocyte Esterase (Negative) 11/18/18 11/18/18 Range/Units 16:41 18:53 WBC (4.8-10.8) K/uL RBC (4.7-6.1) M/uL Hgb (14.0-18.0) g/dL Hct (42-52) % MCV (80-100) fL MCH (25-34) pg MCHC (32-36) g/dL RDW Std Deviation (36.4-46.3) fL RDW Coeff of Joe (11.5-14.5) % Plt Count (130-400) K/uL MPV (7.4-10.4) fL Immature Gran % (Auto) % Neut % (Auto) % Lymph % (Auto) % [place] % (Auto) % Eos % (Auto) % Baso % (Auto) % Immature Gran # (Auto) (0.00-0.02) K/uL Neut # (Auto) (1.4-6.5) K/uL Lymph # (Auto) (1.2-3.4) K/uL [place] # (Auto) (0.11-0.59) K/uL Eos # (Auto) (0-0.5) K/uL Baso # (Auto) (0-0.2) K/uL Absolute Nucleated RBC (0-0) K/uL Nucleated RBC % (auto) % PT (9.0-12.0) Seconds INR (0.9-1.1) APTT (21.0-31.0) Seconds PTT Ratio Sodium (136-145) mmol/L Potassium (3.5-5.1) mmol/L Chloride (98-107) mmol/L Carbon Dioxide (21-32) mmol/L Anion Gap (3-11) BUN (7-18) mg/dl Creatinine (0.6-1.4) mg/dl Est Cr Clr Drug Dosing ml/min Est GFR ( Amer) Est GFR (Non-Af Amer) BUN/Creatinine Ratio (10-20) Glucose (70-99) mg/dl Osmolality 294 (280-300) mOsm/kg Calcium (8.5-10.1) mg/dl Magnesium (1.8-2.4) mg/dl Total Bilirubin (0.2-1) mg/dl AST (15-37) U/L ALT (12-78) U/L Alkaline Phosphatase (45-117) U/L Troponin I (0-0.045) ng/ml Total Protein (6.4-8.2) gm/dl Albumin (3.4-5.0) gm/dl Globulin (2.5-4.0) gm/dl Albumin/Globulin Ratio (0.9-2) TSH (0.300-4.500) uIu/ml Urine Color Yellow Urine Appearance Clear (Clear) Urine pH 7.0 (4.5-7.5) Ur Specific [place] 1.010 (1.000-1.030) Urine Protein Negative (Negative) Urine Glucose (UA) Negative (Negative) Urine Ketones Negative (Negative) Urine Blood Negative (Negative) Urine Nitrite Negative (Negative) Urine Bilirubin Negative (Negative) Urine Urobilinogen Negative (Negative) Ur Leukocyte Esterase Negative (Negative) Imaging Data Radiologist's Impression: Radiology results as stated below per my review and the radiologist's interpretation: XR chest 1V portable HISTORY: Dyspnea COMPARISON: Chest 11/14/2018. FINDINGS: Cardiac silhouette remains severely enlarged. No pleural effusions. No pneumothorax. No focal lung consolidations to suggest pneumonia. No evidence for pulmonary edema. Left-sided pacemaker/defibrillator is again noted. IMPRESSION: No significant change compared to the prior study. No acute process. Stable cardiomegaly. Electronically signed by: Jeramy Esquivel M.D. 11/18/2018 5:43 PM ECG Data Attestation: I personally reviewed and interpreted this ECG as follows: Indication: SOB/dyspnea Rate (beats per minute): 81 Rhythm: atrial fibrillation Findings: + other (rate controlled ventricular response, previous anterior infarct ) and + T-wave inversion (Inferior and lateral leads) Blood Pressure Blood Pressure Findings: Elevated blood pressure Blood Pressure Disposition: further management by hospitalist MDM Narrative This patient was evaluated and appeared to be in no significant distress. IV access was obtained and laboratory work was drawn. 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 Patient was in initially the patient is found to be somewhat hypotensive and IV fluids were initiated. EKG reveals a rate controlled atrial fibrillation. Patient does have T wave inversion in the inferior and lateral leads. Laboratory work reveals a hyponatremia and a acute on chronic renal insufficiency. Patient's troponin is normal. On my reevaluation the patient was feeling somewhat improved after the IV fluids. Blood pressure did improve as well. Given the above findings, the patient will be evaluated by the hospitalist service for further management. Impression & Plan Breath, shortness, Acute kidney injury, Acute hyponatremia, Hypotensive episode Discharge Plan Visit Data *Final* Discharge Date/Time: 11/18/18 20:42 Chief Complaint: Shortness of Breath/Dyspnea Stated Complaint: DIZZY - LIGHT HEADED - SOB ED Provider: Carmen Palomo Discharge Problem: Breath, shortness, Acute kidney injury, Acute hyponatremia, Hypotensive episode Patient Disposition: Admitted As Inpatient Discharge Instructions Interventions: ED Discharge Assessment Last Done: 11/18/18 20:42 The scribe's documentation has been prepared under my direction and personally reviewed by me in its entirety. I confirm that the note above accurately reflects all work, treatment, procedures, and medical decision making performed by me.
[2018-11-18] MEDS ORDERED: ALBUMIN 25% 50 ML IV ONE (22:45)
[2018-11-18] MEDS: INSULIN ASPART 100 UNITS/ML 3 ML PEN SC SCH (22:53)
[2018-11-19] MEDS ORDERED: ALBUMIN 25% 50 ML IV SCH
[2018-11-19] MEDS ORDERED: SODIUM CHLORIDE 0.9% 500 ML IV ONE ×2 (02:29→02:38)
[2018-11-19] MEDS ORDERED: ALBUMIN 25% 50 ML IV ONE ×2 (02:30)
[2018-11-19 06:23] LABS: Basophils # (auto) 0.01 K/uL (0-0.2); Basophils % (auto) 0.2 %; Eosinophils # (auto) 0.15 K/uL (0-0.5); Eosinophils % (auto) 2.6 %; Hematocrit (blood only) 37.6 % (42-52); Hemoglobin 13.5 g/dL (14.0-18.0); Immature Granulocytes # (auto) 0.02 K/uL (0.00-0.02); Immature Granulocytes % (auto) 0.3 %; Lymphocytes # (auto) 0.86 K/uL (1.2-3.4); Lymphocytes % (auto) 14.9 %; Mean Corpuscular Hemoglobin 31.6 pg (25-34); Mean Corpuscular Hgb Conc 35.9 g/dL (32-36); Mean Corpuscular Volume 88.1 fL (80-100); Mean Platelet Volume 9.5 fL (7.4-10.4); Monocytes # (auto) 0.98 K/uL (0.11-0.59); Neutrophils # (auto) 3.76 K/uL (1.4-6.5); Platelet Count 143 K/uL (130-400); RDW Coefficient of Variation 15.2 % (11.5-14.5); RDW Standard Deviation 48.5 fL (36.4-46.3); Red Blood Count 4.27 M/uL (4.7-6.1); White Blood Count 5.78 K/uL (4.8-10.8)
[2018-11-19 06:31] LABS: INR 2.7 (0.9-1.1); Prothrombin Time 25.4 Seconds (9.0-12.0)
[2018-11-19 06:40] LABS: BUN Creatinine Ratio 45.8 (10-20); Calcium 9.2 mg/dl (8.5-10.1); Est GFR (African American) 45.4; Est GFR (Non-African American) 39.1
[2018-11-19 07:52] LABS: Potassium 2.6 mmol/L (3.5-5.1)
[2018-11-19] MEDS: ALLOPURINOL 300 MG TAB PO SCH (08:04)
[2018-11-19] MEDS: DOXYCYCLINE HYCLATE 100 MG CAP PO SCH ×2 (08:04→20:49)
[2018-11-19] MEDS: ASPIRIN 81 MG ECTAB PO SCH (08:04)
[2018-11-19] MEDS: COLCHICINE 0.6 MG TAB PO SCH ×2 (08:04→20:47)
[2018-11-19] MEDS: METOPROLOL SUCC 50MG EXT REL TAB PO SCH ×2 (08:05→20:47)
[2018-11-19] MEDS: VENLAFAXINE HCL XR 150 MG CAPXR PO SCH ×2 (08:05→20:45)
[2018-11-19] MEDS: INSULIN ASPART 100 UNITS/ML 3 ML PEN SC SCH ×4 (08:08→21:02)
[2018-11-19] MEDS ORDERED: ALLOPURINOL 100 MG TAB PO SCH (09:00)
[2018-11-19] MEDS ORDERED: INSULIN GLARGINE SOLOSTAR 100 UNITS/ML 3 ML PEN SQ SCH (09:00)
[2018-11-19] MEDS: POTASSIUM CHLORIDE 20 MEQ TABCR PO SCH ×3 (09:01→20:46)
[2018-11-19] MEDS ORDERED: ALLOPURINOL 100 MG TAB PO ONE (09:36)
--- NOTE | 2018-11-19 15:23 | Hospitalist Progress Note ---
Date of Service November 19, 2018 Assessment & Plan (1) Dehydration: Dehydration secondary to diuretics causing lightheadedness and dizziness. After intervention where diuretics were held and IV fluids were given cautiously, symptoms have resolved. Additionally BRENT has improved and potassium is being replaced today. Sodium is also better. Continue to allow him to drink any to thirst and continue to hold metolazone and torsemide now. (2) Acute hyponatremia: Secondary to diuretic use. Improved with IV fluids overnight. Holding IV fluids at this point so as to not overcorrect and allow patient to eat or drink to thirst. Repeat sodium in a.m. (3) Acute hypokalemia: Secondary to diuretics. Replace and repeat in a.m. Of note mag is repleted. (4) Acute kidney injury: Secondary to diuretics. Improved with holding diuretic therapy and administering IV fluids. Monitor BMP in a.m. (5) Systolic and diastolic CHF, chronic: Appears compensated. Dehydration suspected, no volume overload seen on physical exam. No other objective evidence of volume overload. Holding diuretics at this time. (6) Atrial fibrillation, chronic: Chronic, rate controlled with Toprol-XL. Rhythm control with digoxin. Continue Coumadin for stroke prophylaxis. (7) Acute bronchitis: Doxycycline course (8) DMII (diabetes mellitus, type 2): Insulin while hospitalized. Monitor glucose levels qACHS and adjust as needed. (9) DVT prophylaxis: Warfarin Full code Dispo-likely to home in a.m. pending lab results. Lindsay Flores DO [facility] Hospitalist Subjective 68-year-old man with chronic systolic heart failure who is managed closely in the heart failure clinic presented with lightheadedness and dizziness. He has been on his regular torsemide 300 mg daily and recently had been taking metolazone 5 mg daily x5 days. In the setting of hyponatremia, BRENT, hypokalemia dehydration was suspected and diuretics were appropriately held with IV fluids overnight. Subsequently his lightheadedness and dizziness resolved today. He denies any swelling or weight gain. He does report some fluctuating weight changes and reports specifically some abdominal soreness on the top of his protuberant abdomen. Otherwise denies any cough, chest pain, shortness of breath or other issues today. Review of Systems Review of Systems: All systems reviewed & are unremarkable except as noted in HPI & below Physical Exam Physical Exam: CONSTITUTIONAL: obese, vitals as above, generally well- appearing EYES: normal conjunctivae, no scleral icterus ENT: MMM RESPIRATORY: clear to auscultation bilaterally, no crackles, rales or wheezes, normal respiratory effort CARDIOVASCULAR: regular rate and rhythm, S1 and 2 heard without murmurs, gallops or rubs, no JVD, no peripheral edema GASTROINTESTINAL: soft, nontender, nondistended MUSCULOSKELETAL: strength 5/5 throughout, head is normocephalic and atraumatic SKIN: warm and dry NEUROLOGIC: CN 2-12 grossly intact, no sensory deficit, normal cognition, normal speech, no tremor. No gross focal deficits PSYCHIATRIC: alert cooperative and oriented to person, place and time. Results & Data Vital Signs (Past 12 Hours) Vital Signs Temp Pulse Pulse Pulse Resp BP Pulse Ox 11/19/18 12:00 36.6 C 92 H 18 117/66 94 11/19/18 07:57 36.4 C L 86 18 112/71 95 11/19/18 07:30 87 Laboratory Results Short CBC 11/18/18 11/19/18 Range/Units 16:40 06:15 WBC 8.32 5.78 (4.8-10.8) K/uL Hgb 14.2 13.5 L (14.0-18.0) g/dL Hct 39.1 L 37.6 L (42-52) % Plt Count 178 143 (130-400) K/uL BMP 11/18/18 11/18/18 11/19/18 16:40 20:45 00:54 Sodium 122 L 123 L 126 L Potassium 3.8 Chloride 78 L Carbon Dioxide 34 H BUN 80 H Creatinine 2.37 H Glucose 270 H Calcium 9.0 11/19/18 11/19/18 06:15 12:19 Sodium 128 L 126 L Potassium 2.6 L D Chloride 84 L Carbon Dioxide 34 H BUN 80 H Creatinine 1.75 H D Glucose 229 H Calcium 9.2 Cardiac Enzymes 11/18/18 Range/Units 16:40 Troponin I 0.027 (0-0.045) ng/ml Liver Function 11/18/18 Range/Units 16:40 Total Bilirubin 0.9 (0.2-1) mg/dl AST 26 (15-37) U/L ALT 26 (12-78) U/L Alkaline Phosphatase 90 (45-117) U/L Albumin 3.6 (3.4-5.0) gm/dl Urine 11/18/18 Range/Units 18:53 Urine Color Yellow Urine Appearance Clear (Clear) Urine pH 7.0 (4.5-7.5) Ur Specific [place] 1.010 (1.000-1.030) Urine Protein Negative (Negative) Urine Glucose (UA) Negative (Negative) Medications Administered Current Inpatient Medications Acetaminophen (Tylenol) 650 mg PO Q4H PRN PRN Reason: Pain or Fever Stop: 12/18/18 21:43 Allopurinol (Zyloprim) 300 mg PO QAM [facility] Stop: 12/19/18 08:59 Last Admin: 11/19/18 08:04 Dose: 300 mg Documented by: Allopurinol (Zyloprim) 200 mg PO QAM [facility] Stop: 12/20/18 08:59 Aspirin (Ecotrin Ectab) 81 mg PO QAM [facility] [place] Stop: 12/19/18 08:59 Last Admin: 11/19/18 08:04 Dose: 81 mg Documented by: Atorvastatin Calcium (Lipitor) 40 mg PO QPM [facility] [place] Stop: 12/18/18 21:43 Last Admin: 11/18/18 22:16 Dose: 40 mg Documented by: Colchicine (Colcrys) 0.6 mg PO BID [facility] [place] Stop: 12/18/18 21:43 Last Admin: 11/19/18 08:04 Dose: 0.6 mg Documented by: Dextrose (Dextrose 50%) 25 - 50 ml IV UD PRN; Protocol PRN Reason: Hypoglycemia Protocol Stop: 12/18/18 21:43 Digoxin (Lanoxin) 0.125 mg PO Q2D@1600 [facility] Stop: 12/20/18 15:59 Doxycycline Hyclate (Vibramycin) 100 mg PO BID [facility] Stop: 11/26/18 08:59 Last Admin: 11/19/18 08:04 Dose: 100 mg Documented by: Glucagon (Glucagen) 1 mg SQ UD PRN; Protocol PRN Reason: Hypoglycemia Protocol Stop: 12/18/18 21:43 Glucose (Glucose 40%) 15 - 30 gm PO UD PRN; Protocol PRN Reason: Hypoglycemia Protocol Stop: 12/18/18 21:43 Glucose (Dex4 Glucose) 4 - 8 tabs PO UD PRN; Protocol PRN Reason: Hypoglycemia Protocol Stop: 12/18/18 21:43 Promethazine HCl 12.5 mg/ (Sodium Chloride) 50.5 mls @ 202 mls/hr IV Q6H PRN PRN Reason: Nausea And Vomiting Stop: 12/18/18 21:43 Insulin Aspart (Novolog Flexpen) 0 units SC ACHS [facility] [place] Stop: 12/18/18 21:43 Last Admin: 11/19/18 12:27 Dose: 7 units Documented by: Insulin Glargine (Lantus Solostar Pen) 20 units SQ BID [facility] [place] Stop: 12/19/18 08:59 Last Admin: 11/19/18 08:06 Dose: 20 units Documented by: Ipratropium [place] (Atrovent 0.02% 0.5mg/2.5ml) 0.5 mg INH Q4H PRN PRN Reason: SOB/WHEEZE Stop: 12/18/18 21:43 Levalbuterol HCl (Xopenex 1.25mg/0.5ml Neb) 1.25 mg INH Q4H PRN PRN Reason: SOB/WHEEZE Stop: 12/18/18 21:43 Metoprolol Succinate (Toprol Xl) 25 mg PO BID [facility] [place] Stop: 12/19/18 08:59 Last Admin: 11/19/18 08:05 Dose: 25 mg Documented by: Miscellaneous (Carbohydrates For Hypoglycemia) 15 - 30 gm PO UD PRN PRN Reason: Hypoglycemia Treatment Stop: 12/18/18 21:43 Nitroglycerin (Nitrostat) 0.4 mg SL UD PRN PRN Reason: Chest Pain Stop: 12/18/18 21:43 Oxycodone HCl (Roxicodone Immediate Rel) 5 mg PO Q4H PRN PRN Reason: Pain Stop: 12/02/18 21:43 Potassium Chloride (Klor-Con M20) 40 meq PO Q6H [facility] [place] Stop: 11/19/18 20:01 Last Admin: 11/19/18 14:27 Dose: 40 meq Documented by: Venlafaxine HCl (Effexor Extended Release) 150 mg PO BID [facility] Stop: 12/18/18 21:43 Last Admin: 11/19/18 08:05 Dose: 150 mg Documented by:
--- NOTE | 2018-11-19 15:26 | Cardiology Consultation ---
Date of Consultation November 19, 2018 Assessment & Plan (1) Systolic and diastolic CHF, chronic: Suspect the patient was dehydrated at the time of his presentation. His electrolytes are improving with some gentle hydration and interrupting his diuretic therapy. Hopefully, we can resume his diuretics tomorrow. Would use his daily weight on the 1st morning after discharge as his new dry weight. (2) Ischemic cardiomyopathy: Left ventricular ejection fraction severely reduced at 25-30% on an echocardiogram in July 2017. Multiple wall motion abnormalities were identified. Continue metoprolol succinate and Entresto. (3) CAD (coronary artery disease): Extensive history as described above. Continue medical management. (4) AICD (automatic cardioverter/defibrillator) present: Single-chamber ICD placed in October 2017. (5) Atrial fibrillation, chronic: Rate is adequately controlled. Could consider a change from warfarin to renally adjusted Eliquis (2.5 mg b.i.d.). History of Present Illness Attending Physician: Lindsay Flores DO History of Present Illness Mr. Smith this 68-year-old male admitted yesterday complaining of cough, dizziness, and weight gain. He was noted to be hyponatremic and an acute on chronic renal failure. Hospitalization was recommended. Of note, the patient is well known to me from the outpatient setting. The patient has been having difficulty controlling his weight at home. He was seen by Zulema Glaser PA-C on November 14 in our Heart failure Clinic. Despite 5 days of metolazone, the patient continued to have difficulty controlling his weight. The patient has been compliant with a low-salt diet and his usual cardiac medications. The patient has longstanding history of coronary artery disease. He had LAD stents placed in 1994 and again in 1996 at that time showed acute anterior wall myocardial infarction. The patient did well until August 2007 when he presented with acute coronary syndrome. He had 2 bare metal stents placed at that time, 1 in the RCA, and another in LAD. The patient also carries a history of nonischemic cardiomyopathy. His most recent echocardiogram performed in July 2017 noted an ejection fraction of 25- 30%. There was an anteroapical wall motion abnormality. These findings remain in a stable pattern. Past medical and surgical history 1. Coronary artery disease-see above 2. Ischemic atyisfplrrsupi-65-16% 3. Chronic combined CHF 4. Permanent atrial fibrillation 5. Chronic pericardial effusion 6. Single-chamber ICD-October 2017 7. Diabetes mellitus 8. Obstructive sleep apnea 9. Chronic venous insufficiency 10. DJD 11. Right great toe replacement 12. Right colectomy-November 2008 13. Multiple benign colonic polyps-November 2008 14. Anxiety/depression Social history and lives with his Works part-time at the [employer] No tobacco or alcohol Family history No early coronary artery disease Review of systems A 10 point review of systems was negative except for that described above. Allergies Allergy/AdvReac Type Severity Reaction Status Date / Time Penicillins Allergy Mild childhood Verified 11/18/18 17:11 reaction codeine AdvReac Mild NAUSEA, Verified 11/18/18 17:11 LIGHTHEADEDNESS simvastatin AdvReac Mild makes him Verified 11/18/18 17:11 feel like he is high Home Medications Home Medications Medication Instructions Recorded Confirmed Type aspirin 81 mg PO QAM 01/25/18 11/18/18 History atorvastatin 40 mg PO QPM 01/25/18 11/18/18 History metoprolol succinate 100 mg PO BID 01/25/18 11/18/18 History potassium chloride 10 meq PO BID 01/25/18 11/18/18 History venlafaxine 150 mg PO BID 01/25/18 11/18/18 History warfarin 5 mg PO WK 01/25/18 11/18/18 History warfarin 2.5 mg PO 6XWK 02/17/18 11/18/18 History digoxin 125 mcg PO Q OTHER DAY 05/10/18 11/18/18 History Lantus Solostar U-100 Insulin 35 unit SUBCUT QAM 08/17/18 11/18/18 History Novolog Flexpen U-100 Insulin 0 units SQ TIDM 09/11/18 11/18/18 History allopurinol 100 mg PO QAM 09/11/18 11/18/18 History meclizine 25 mg PO TID PRN 09/11/18 11/18/18 History allopurinol 300 mg PO QAM 09/26/18 11/18/18 History torsemide 100 mg tablet 100 - 200 mg PO BID tab 11/09/18 11/18/18 History colchicine [Colcrys] 0.6 mg PO BID 11/18/18 11/18/18 History sacubitril-valsartan [Entresto] 2 tab PO BID 11/18/18 11/18/18 History Patient History Medical History Systolic and diastolic CHF, chronic (Chronic) FPC current use of anticoagulant (Chronic) warfarin daily Depression with anxiety (Chronic) Diabetic neuropathy (Chronic) CAD (coronary artery disease) (Chronic) stenting to LAD in 1994 and 1996 stenting to RCA and LAD in 2007 Diabetes mellitus type II, controlled (Chronic) Atrial fibrillation, chronic (Chronic) ANTOINETTE on CPAP (Chronic) HTN (hypertension) (Chronic) Dyslipidemia (Chronic) Congestive heart failure (Resolved) Myocardial Infarction (Resolved) 1989. CARDIAC CATH WITH 2 STENTS Anxiety (Inactive) Ischemic dilated cardiomyopathy (Inactive) Gout Surgical History History of cataract surgery (Resolved) BILATERAL AICD (automatic cardioverter/defibrillator) present (Chronic) placed on 10/24/17 [employer] DEVICE. LAST CHECKED [address] DOMINGUEZ/[facility]. PLACED IN OCTOBER 2017 AT [facility] History of partial colectomy (Resolved) "[facility]/ ilieorectal anast/ multiple polyps 2008" History of bowel resection (Resolved) MASSIVE POLPYS History of heart artery stent (Resolved) History of cardiac cath (Inactive) 1989 --> X2 STENTS. BARE METAL STENTS ~1992 --> X2 STENTS. DRUG ELUTING STENTS. 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 HEENT exam is negative. Neck is supple with full carotid upstrokes. There are no carotid bruits. Jugular venous pressure is flat at 90. There is no thyromegaly. Cardiovascular exam reveals an irregular rhythm with distant heart sounds. Chest reveals a palpable device in the left subclavicular region. Lungs are clear without rales, rhonchi, or wheezes. Abdomen is soft and nontender without bruits. Extremities reveal intact radial artery pulses bilaterally. There is 2+ nonpitting edema in the pretibial regions bilaterally.. Results & Data Vital Signs (Past 12 Hours) Vital Signs Temp Pulse Pulse Pulse Resp BP Pulse Ox 11/19/18 12:00 36.6 C 92 H 18 117/66 94 11/19/18 07:57 36.4 C L 86 18 112/71 95 11/19/18 07:30 87 Laboratory Results CBC notes a hemoglobin of 13.5, hematocrit 37.6, white count 5.78, platelet count of [id number]. Electrolytes notice sodium of 128, potassium 2.6, chloride 84, bicarb 34, BUN 80, creatinine 1.75, glucose of 229. Troponin I level is normal at 0.027. Diagnostic Findings Chest x-ray notes significant cardiomegaly and no evidence of pulmonary edema. A left-sided device is noted. PG Care Time/CCT Total # of Minutes Spent Total Time Spent with Patient: Total time spent is greater than 50% in coordination of care (as documented) at patient's floor/unit and/or counseling patient: (1) CAD (coronary artery disease) Associated angina: without angina Coronary Disease-Associated Artery/Lesion type: [place] artery [place] vs. transplanted heart: [place] heart Qualified Code(s): I25.10 - Atherosclerotic heart disease of [place] coronary artery without angina pectoris
--- NOTE | 2018-11-19 18:13 | Nephrology Consultation ---
Date of Consultation November 19, 2018 Assessment & Plan (1) Acute kidney injury: nonoliguric prerenal BRENT on CKD 3. improving after gentle fluid resuscitation (had NS as well as albumin); given low EF and concomitant hyponatremia, would not give further fluids; baseline creatinine spring/summer 2018 1.4-1.7; already improved back nearly to baseline. also with relatively dilute urine and bland sediment on presentation. fairly severe electrolyte issues as below. digoxin levels lower than normal limits. no nsaids. -hold diuretics for now; no further IVF needed -agree w/ 2L FR for now -cont strict I/O -daily standing wt pls -daily bmp Present on Admission?: Yes (2) Hyponatremia: presenting sNa 122 on 11/18 at 1800; atypical in that he has normal (not even low normal) serum osms; urine studies not completed and will be essential to helping to understand process here; reordered osms -presume hypotonic hypovolemic hyponatremia -- not normotonic as noted above; BG have been in 200s (not excessive enough to drive down sNa); TSH wnl; not on meds typically associated w/ hyponatremia > venlafaxine can cause this <1% of time -his hx is consistent with fluid overload; however on repeated exams he is euvolemic or perhaps slightly dry -sNa this AM 126 after gentle fluids and albumin and holding diuretic -goal sNa this evening is 128 >> f/u pending lab -cont FR 2L daily and strict I/O >> he is at high risk for vol OL from [employer] Present on Admission?: Yes (3) Hypokalemia: odd readings in this pt >> his K was initially 3.6; then without diuretics his K dropped to 2.6; no report of diarrhea or bowel upset; ? if holding sacubitril may have a role in K drop; no evidence of profound acid base disturbances > did have transient lactate elevation whcih has since normalized; AG has been wnl -has had 80 mEq po today >> has another 40 mEq for later today; await recheck ordered for 1800 -cont to hold sacubitril for now Present on Admission?: Yes History of Present Illness Reason for Consultation: BRENT on CKD, hyponatremia Requesting Physician: Dr Lopez Attending Physician: Lindsay Flores, DO History of Present Illness 68 y/o M whom I'm asked to see for issues above after he was admitted overnight for presyncopal sx and ncreased abd girth from home. PMH includes CAD, valvular regurgitation mitral/aortic/thoracic s, ANTOINETTE on cpap, htn, dm2 on insulin; a fib on AC, mild ckd 3 w/ baseline creatinine of 1.4-1.7 generally. He had been having issues w/ wt gain prior to admission > He had gained 10 lb despite diuretic increases and despite close f/u w/ cardiology [facility] whom he saw 3 x in past month, most recently 11/14. He did endorse some orthopnea more than 2 pillow one, increased abdominal girth per pt (though u/s w/o this) . he was noticing he had to stop and rest 2-3 times walking to his mailbox in driveway which normally requires no rest for him. also noting more orthopnea recently. His baseline creatinine is 1.3-1.4; does not follow w/ OP nephro. On presentation he was 2.4; improved to 1.8 today w/ holding his diuretics and 750 mL of fluid. His K ws 3.6 but dropped to 2.6 this am >> he has 40 mEq po K ordered x 3 doses. His presenting sNa was 122 at 1700 last evening, w/ serum osms 294; improved to 126 this am and at noon. urine osms ordered, not collected yet. Prior to admission at 11/14 OV he was on 300 mg of torsemide daily and 5 mg metolazone as well as K supplements. he did have a gout attack a few weeks back, still resolving. no nsaids however. his normal wt at home is 234 lb; however his wt has swung wildly past 7 days from 240-248 lb w/o clear trend Allergies Allergy/AdvReac Type Severity Reaction Status Date / Time Penicillins Allergy Mild childhood Verified 11/18/18 17:11 reaction codeine AdvReac Mild NAUSEA, Verified 11/18/18 17:11 LIGHTHEADEDNESS simvastatin AdvReac Mild makes him Verified 11/18/18 17:11 feel like he is high Home Medications Home Medications Medication Instructions Recorded Confirmed Type aspirin 81 mg PO QAM 01/25/18 11/18/18 History atorvastatin 40 mg PO QPM 01/25/18 11/18/18 History metoprolol succinate 100 mg PO BID 01/25/18 11/18/18 History potassium chloride 10 meq PO BID 01/25/18 11/18/18 History venlafaxine 150 mg PO BID 01/25/18 11/18/18 History warfarin 5 mg PO WK 01/25/18 11/18/18 History warfarin 2.5 mg PO 6XWK 02/17/18 11/18/18 History digoxin 125 mcg PO Q OTHER DAY 05/10/18 11/18/18 History Lantus Solostar U-100 Insulin 35 unit SUBCUT QAM 08/17/18 11/18/18 History Novolog Flexpen U-100 Insulin 0 units SQ TIDM 09/11/18 11/18/18 History allopurinol 100 mg PO QAM 09/11/18 11/18/18 History meclizine 25 mg PO TID PRN 09/11/18 11/18/18 History allopurinol 300 mg PO QAM 09/26/18 11/18/18 History torsemide 100 mg tablet 100 - 200 mg PO BID tab 11/09/18 11/18/18 History colchicine [Colcrys] 0.6 mg PO BID 11/18/18 11/18/18 History sacubitril-valsartan [Entresto] 2 tab PO BID 11/18/18 11/18/18 History Patient History Medical History Systolic and diastolic CHF, chronic (Chronic) 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 CARDIAC CATH WITH 2 STENTS Anxiety (Inactive) Ischemic dilated cardiomyopathy (Inactive) Gout Surgical History History of cataract surgery (Resolved) BILATERAL AICD (automatic cardioverter/defibrillator) present (Chronic) placed on 10/24/17 [employer] DEVICE. LAST CHECKED [address] DOMINGUEZ/[facility]ICE. PLACED IN OCTOBER 2017 AT [facility] History of partial colectomy (Resolved) "[facility]/ ilieorectal anast/ multiple polyps 2008" History of bowel resection (Resolved) MASSIVE POLPYS History of heart artery stent (Resolved) History of cardiac cath (Inactive) 1989 --> X2 STENTS. BARE METAL STENTS ~1992 --> X2 STENTS. DRUG ELUTING STENTS. History of colonoscopy (Inactive) Stented coronary artery (Inactive) "stents x 4 to RCA and LAD 1997" Family History Mother Coronary heart disease Diabetes Father Lung cancer Sister Diabetes Social History Preferred Language: Monegasque Communication Ability: Effective Vertical Lathe Operator Required: No Beliefs That Will Affect Care: None marital status: Current Living Situation: Spouse Other Information That Helps Us Care for You: No Feels Safe at Home: Yes Safety Concerns: Feels Safe At This Time Smoking Status: Never smoker Do You Dip or Chew Tobacco: No ; Second Hand Exposure: No ; Tobacco Cessation Education Requested by Patient: No Hx Alcohol Use: No Hx Substance Use: No Review of Systems Review of Systems: All systems reviewed & are unremarkable except as noted in HPI & below Constitutional: as per Subjective / HPI, + fatigue, + weakness and + weight gain; no fever and no chills Eyes: no worsening vision Ear, Nose, Mouth, Throat: + dry mouth Respiratory: as per Subjective / HPI, + cough and + change in sputum (minimal yellow sputum past week); no wheezing Cardiovascular: as per Subjective / HPI, + dyspnea on exertion, + orthopnea and + lightheadedness; no chest pain, no dyspnea at rest, no palpitations, no syncope and no edema Gastrointestinal: no abdominal pain, no early satiety, no vomiting and no change in bowel habits increased abdominal girth Genitourinary: + nocturia (3x stable); no dysuria, no difficulty urinating, no urinary frequency and no hematuria Musculoskeletal: no swelling, no myalgia and no muscle weakness Integumentary: no rash and no non-healing lesions Neurologic: no gait abnormality, no localized weakness and no behavioral changes Psychiatric: no behavioral changes Endocrine: + fatigue Hematologic / Lymphatic: no easy bleeding Physical Exam Constitutional: well developed, well nourished, + obese and cooperative sitting up on RA eating w/ gusto Eyes: EOM intact bilaterally ENMT: Ears: no external ear abnormality Nose: no external nose abnormality Mouth: + dry oral mucous membranes Neck: no nuchal rigidity Respiratory: normal respiratory effort Auscultation: + diminished lung sounds Cardiovascular: Rate/Rhythm: regular rate and + irregularly irregular Extremities: no edema Gastrointestinal (Abdomen): Inspection/Auscultation: normal bowel sounds Percussion/Palpation: abdomen soft; abdomen nontender and no ascites Musculoskeletal: Extremities: strength 5/5 throughout Skin: no rashes, warm and dry Neurologic: almeida, fluent speech, no tremor Psychiatric: A+Ox3, euthymic affect Genitourinary: no pickering Results & Data Vital Signs (Past 12 Hours) Vital Signs Temp Pulse Pulse Pulse Resp BP Pulse Ox 11/19/18 15:35 36.8 C 101 H 18 96/62 L 94 11/19/18 12:00 36.6 C 92 H 18 117/66 94 11/19/18 07:57 36.4 C L 86 18 112/71 95 11/19/18 07:30 87 Laboratory Results Abnormal lab results 11/18/18 11/18/18 11/18/18 Range/Units 20:45 20:45 20:45 RBC (4.7-6.1) M/uL Hgb (14.0-18.0) g/dL Hct (42-52) % RDW Std Deviation (36.4-46.3) fL RDW Coeff of Joe (11.5-14.5) % Lymph # (Auto) (1.2-3.4) K/uL Gates # (Auto) (0.11-0.59) K/uL PT (9.0-12.0) Seconds INR (0.9-1.1) Sodium 123 L (136-145) mmol/L Potassium (3.5-5.1) mmol/L Chloride (98-107) mmol/L Carbon Dioxide (21-32) mmol/L BUN (7-18) mg/dl Creatinine (0.6-1.4) mg/dl BUN/Creatinine Ratio (10-20) Glucose (70-99) mg/dl POC Glucose (70-99) Lactate 2.4 H* (0.4-2.0) mmol/L Digoxin 0.6 L (0.8-2.0) ng/ml 11/18/18 11/19/18 11/19/18 Range/Units 22:09 00:54 00:54 RBC (4.7-6.1) M/uL Hgb (14.0-18.0) g/dL Hct (42-52) % RDW Std Deviation (36.4-46.3) fL RDW Coeff of Joe (11.5-14.5) % Lymph # (Auto) (1.2-3.4) K/uL Gates # (Auto) (0.11-0.59) K/uL PT (9.0-12.0) Seconds INR (0.9-1.1) Sodium 126 L (136-145) mmol/L Potassium (3.5-5.1) mmol/L Chloride (98-107) mmol/L Carbon Dioxide (21-32) mmol/L BUN (7-18) mg/dl Creatinine (0.6-1.4) mg/dl BUN/Creatinine Ratio (10-20) Glucose (70-99) mg/dl POC Glucose 246 H (70-99) Lactate 2.8 H* (0.4-2.0) mmol/L Digoxin (0.8-2.0) ng/ml 11/19/18 11/19/18 11/19/18 Range/Units 06:15 06:15 06:15 RBC 4.27 L (4.7-6.1) M/uL Hgb 13.5 L (14.0-18.0) g/dL Hct 37.6 L (42-52) % RDW Std Deviation 48.5 H (36.4-46.3) fL RDW Coeff of Joe 15.2 H (11.5-14.5) % Lymph # (Auto) 0.86 L (1.2-3.4) K/uL Gates # (Auto) 0.98 H (0.11-0.59) K/uL PT 25.4 H (9.0-12.0) Seconds INR 2.7 H (0.9-1.1) Sodium 128 L (136-145) mmol/L Potassium 2.6 L D (3.5-5.1) mmol/L Chloride 84 L (98-107) mmol/L Carbon Dioxide 34 H (21-32) mmol/L BUN 80 H (7-18) mg/dl Creatinine 1.75 H D (0.6-1.4) mg/dl BUN/Creatinine Ratio 45.8 H (10-20) Glucose 229 H (70-99) mg/dl POC Glucose (70-99) Lactate (0.4-2.0) mmol/L Digoxin (0.8-2.0) ng/ml 11/19/18 11/19/18 11/19/18 Range/Units 07:06 11:34 12:19 RBC (4.7-6.1) M/uL Hgb (14.0-18.0) g/dL Hct (42-52) % RDW Std Deviation (36.4-46.3) fL RDW Coeff of Joe (11.5-14.5) % Lymph # (Auto) (1.2-3.4) K/uL Gates # (Auto) (0.11-0.59) K/uL PT (9.0-12.0) Seconds INR (0.9-1.1) Sodium 126 L (136-145) mmol/L Potassium (3.5-5.1) mmol/L Chloride (98-107) mmol/L Carbon Dioxide (21-32) mmol/L BUN (7-18) mg/dl Creatinine (0.6-1.4) mg/dl BUN/Creatinine Ratio (10-20) Glucose (70-99) mg/dl POC Glucose 275 H 279 H (70-99) Lactate (0.4-2.0) mmol/L Digoxin (0.8-2.0) ng/ml 11/19/18 Range/Units 16:04 RBC (4.7-6.1) M/uL Hgb (14.0-18.0) g/dL Hct (42-52) % RDW Std Deviation (36.4-46.3) fL RDW Coeff of Joe (11.5-14.5) % Lymph # (Auto) (1.2-3.4) K/uL Gates # (Auto) (0.11-0.59) K/uL PT (9.0-12.0) Seconds INR (0.9-1.1) Sodium (136-145) mmol/L Potassium (3.5-5.1) mmol/L Chloride (98-107) mmol/L Carbon Dioxide (21-32) mmol/L BUN (7-18) mg/dl Creatinine (0.6-1.4) mg/dl BUN/Creatinine Ratio (10-20) Glucose (70-99) mg/dl POC Glucose 241 H (70-99) Lactate (0.4-2.0) mmol/L Digoxin (0.8-2.0) ng/ml Diagnostic Findings abd u/s > no ascites CXR clear> no effusion or pna or vasc congestion; + large heart
[2018-11-19] MEDS ORDERED: WARFARIN SOD 5 MG TAB PO ONE (19:18)
[2018-11-19 19:24] LABS: Calcium 9.2 mg/dl (8.5-10.1); Creatinine Clr Calc Pharmacy 42.2 ml/min; Est GFR (African American) 38.8; Est GFR (Non-African American) 33.5
[2018-11-19 19:43] LABS: Potassium 3.2 mmol/L (3.5-5.1)
[2018-11-19] MEDS ORDERED: POTASSIUM CHLORIDE 20 MEQ TABCR PO STA (19:57)
[2018-11-19] MEDS: ATORVASTATIN 40 MG TAB PO SCH (20:45)
[2018-11-19] MEDS: INSULIN GLARGINE SOLOSTAR 100 UNITS/ML 3 ML PEN SQ SCH (21:00)
[2018-11-19] MEDS ORDERED: POTASSIUM CHLORIDE 20 MEQ TABCR PO ONE (22:00)
[2018-11-20 06:31] LABS: Hematocrit (blood only) 41.8 % (42-52); Hemoglobin 14.7 g/dL (14.0-18.0); Mean Corpuscular Hgb Conc 35.2 g/dL (32-36); Mean Corpuscular Volume 90.9 fL (80-100); Mean Platelet Volume 9.6 fL (7.4-10.4); Platelet Count 190 K/uL (130-400); RDW Coefficient of Variation 15.4 % (11.5-14.5); RDW Standard Deviation 50.7 fL (36.4-46.3); White Blood Count 6.87 K/uL (4.8-10.8)
[2018-11-20 07:07] LABS: BUN Creatinine Ratio 38.1 (10-20); Calcium 9.7 mg/dl (8.5-10.1); Creatinine Clr Calc Pharmacy 49.9 ml/min; Est GFR (Non-African American) 41.4; Magnesium 2.3 mg/dl (1.8-2.4); Potassium 3.6 mmol/L (3.5-5.1)
--- NOTE | 2018-11-20 07:56 | Nephrology Progress Note ---
Date of Service November 20, 2018 Assessment & Plan (1) Acute kidney injury: nonoliguric prerenal BRENT on CKD 3. further improving after gentle fluid resuscitation (had NS as well as albumin); given low EF and concomitant hyponatremia, would not give further fluids; baseline creatinine spring/summer 2018 1.4-1.7; already improved back nearly to baseline. also with relatively dilute urine and bland sediment on presentation. fairly severe electrolyte issues on presentation as below. digoxin levels lower than normal limits on presentation. no nsaids. -w/ improvement today, he is for possible d/c; NOTe THAT pt d/c today before I could examine him personally - below are recommendations for hospitalist/cardiology to consider in d/c plan; d/w Dr Flores>> recommend >>1.5L FR at d/c and < 2 gm daily na diet -daily standing wt at home <> agree w/ cardiology rec that standing wt day AFTER d/c be taken as his new target wt -would repeat bmp 11/22 -monitor digoxin levels periodically -his OP diuretics have been changed quite a bit recently >> recommend resuming torsemide 100 mg bid to start and follow closely w/ cardiology; cardiology does know him better than I so defer to them for final diuretic rec -resume sacubitril tomorrow -recommend f/u in [facility] CKD clinic in 2-3 mos any doc (2) Hyponatremia: presenting sNa 122 on 11/18 at 1800; atypical in that he has normal (not even low normal) serum osms; correcting at appropriate rate to 134 this am -presume hypotonic hypovolemic hyponatremia -- see note from yesterday re excluded causes -his hx is consistent with fluid overload; however on repeated exams he is euvolemic or perhaps slightly dry, favor the latter -sNa this AM 134 after gentle fluids and albumin and holding diuretic > see above re diuretic, f/u labs (3) Hypokalemia: improving w/ aggressive repletion >will give another 40 mEq po this am -would resume sacubitril tomorrow Results & Data Vital Signs (Past 12 Hours) Vital Signs Temp Pulse Pulse Pulse Resp BP Pulse Ox 11/20/18 03:07 36.6 C 105 H 18 115/63 97 11/19/18 23:30 36.8 C 90 18 109/62 96 09/02/19 22:20 90 Laboratory Results Abnormal lab results 11/19/18 11/19/18 11/19/18 Range/Units 11:34 12:19 16:04 RBC (4.7-6.1) M/uL Hct (42-52) % RDW Std Deviation (36.4-46.3) fL RDW Coeff of Joe (11.5-14.5) % Sodium 126 L (136-145) mmol/L Potassium (3.5-5.1) mmol/L Chloride (98-107) mmol/L Carbon Dioxide (21-32) mmol/L BUN (7-18) mg/dl Creatinine (0.6-1.4) mg/dl BUN/Creatinine Ratio (10-20) Glucose (70-99) mg/dl POC Glucose 279 H 241 H (70-99) Osmolality (280-300) mOsm/kg Urine Osmolality (500-800) mOsm/kg 11/19/18 11/19/18 11/19/18 Range/Units 18:46 18:46 20:56 RBC (4.7-6.1) M/uL Hct (42-52) % RDW Std Deviation (36.4-46.3) fL RDW Coeff of Joe (11.5-14.5) % Sodium 130 L (136-145) mmol/L Potassium 3.2 L D (3.5-5.1) mmol/L Chloride 86 L (98-107) mmol/L Carbon Dioxide 35 H (21-32) mmol/L BUN 76 H (7-18) mg/dl Creatinine 1.99 H (0.6-1.4) mg/dl BUN/Creatinine Ratio 38.0 H (10-20) Glucose 253 H (70-99) mg/dl POC Glucose 244 H (70-99) Osmolality 302 H (280-300) mOsm/kg Urine Osmolality (500-800) mOsm/kg 11/20/18 11/20/18 11/20/18 Range/Units 06:10 06:16 06:16 RBC 4.60 L (4.7-6.1) M/uL Hct 41.8 L (42-52) % RDW Std Deviation 50.7 H (36.4-46.3) fL RDW Coeff of Joe 15.4 H (11.5-14.5) % Sodium 134 L (136-145) mmol/L Potassium (3.5-5.1) mmol/L Chloride 93 L (98-107) mmol/L Carbon Dioxide 33 H (21-32) mmol/L BUN 64 H (7-18) mg/dl Creatinine 1.67 H D (0.6-1.4) mg/dl BUN/Creatinine Ratio 38.1 H (10-20) Glucose 195 H (70-99) mg/dl POC Glucose (70-99) Osmolality (280-300) mOsm/kg Urine Osmolality 371 L (500-800) mOsm/kg 11/20/18 Range/Units 07:16 RBC (4.7-6.1) M/uL Hct (42-52) % RDW Std Deviation (36.4-46.3) fL RDW Coeff of Joe (11.5-14.5) % Sodium (136-145) mmol/L Potassium (3.5-5.1) mmol/L Chloride (98-107) mmol/L Carbon Dioxide (21-32) mmol/L BUN (7-18) mg/dl Creatinine (0.6-1.4) mg/dl BUN/Creatinine Ratio (10-20) Glucose (70-99) mg/dl POC Glucose 219 H (70-99) Osmolality (280-300) mOsm/kg Urine Osmolality (500-800) mOsm/kg
[2018-11-20] MEDS: DOXYCYCLINE HYCLATE 100 MG CAP PO SCH (08:13)
[2018-11-20] MEDS: ASPIRIN 81 MG ECTAB PO SCH (08:13)
[2018-11-20] MEDS: VENLAFAXINE HCL XR 150 MG CAPXR PO SCH (08:13)
[2018-11-20] MEDS: COLCHICINE 0.6 MG TAB PO SCH (08:13)
[2018-11-20] MEDS: INSULIN GLARGINE SOLOSTAR 100 UNITS/ML 3 ML PEN SQ SCH (08:14)
[2018-11-20] MEDS: METOPROLOL SUCC 50MG EXT REL TAB PO SCH (08:14)
[2018-11-20] MEDS: INSULIN ASPART 100 UNITS/ML 3 ML PEN SC SCH ×2 (08:16→12:00)
[2018-11-20] MEDS: ALLOPURINOL 300 MG TAB PO SCH (08:17)
[2018-11-20] MEDS ORDERED: ALLOPURINOL 100 MG TAB PO SCH (09:00)
[2018-11-20] MEDS ORDERED: POTASSIUM CHLORIDE 20 MEQ TABCR PO ONE (10:15)
--- NOTE | 2018-11-20 13:12 | Cardiology Progress Note ---
Date of Service November 20, 2018 Assessment & Plan (1) Systolic and diastolic CHF, chronic: Suspect the patient was dehydrated at the time of his presentation. His electrolytes are improving with some gentle hydration and interrupting his diuretic therapy. Would resume torsemide 100 mg b.i.d.. Would use his daily weight tomorrow morning as his new dry weight. (2) Ischemic cardiomyopathy: Left ventricular ejection fraction severely reduced at 25-30% on an echocardiogram in July 2017. Multiple wall motion abnormalities were identified. However, echocardiogram performed in our office last month noted an ejection fraction of 35%. Continue metoprolol succinate and Entresto. (3) CAD (coronary artery disease): Extensive history as described above. Continue medical management. (4) AICD (automatic cardioverter/defibrillator) present: Single-chamber ICD, October 2017. (5) Atrial fibrillation, chronic: Rate is adequately controlled. Could consider a change from warfarin to renally adjusted Eliquis (2.5 mg b.i.d.). Subjective The patient is resting comfortably in bed without complaints of chest pain or dyspnea. Denies PND and orthopnea. He is anxious for hospital discharge. Physical Exam Physical Exam: In general this is an obese white male in no acute distress. HEENT exam is negative. Neck is supple with full carotid upstrokes. There are no carotid bruits. Jugular venous pressure is flat at 90. There is no thyromegaly. Cardiovascular exam reveals an irregular rhythm with distant heart sounds. Chest reveals a palpable device in the left subclavicular region. Lungs are clear without rales, rhonchi, or wheezes. Abdomen is soft and nontender without bruits. Extremities reveal intact radial artery pulses bilaterally. There is 2+ nonpitting edema in the pretibial regions bilaterally. Results & Data Vital Signs (Past 12 Hours) Vital Signs Temp Pulse Pulse Pulse Resp BP Pulse Ox 11/20/18 12:39 98 H 11/20/18 11:47 36.7 C 108 H 19 126/64 99 11/20/18 08:02 36.8 C 106 H 16 122/75 96 11/20/18 03:07 36.6 C 105 H 18 115/63 97 Laboratory Results Laboratory Results - last 24 hr 11/19/18 11/19/18 11/19/18 16:04 18:46 18:46 WBC RBC Hgb Hct MCV MCH MCHC RDW Std Deviation RDW Coeff of Joe Plt Count MPV Sodium 130 L Potassium 3.2 L D Chloride 86 L Carbon Dioxide 35 H Anion Gap 8.0 BUN 76 H Creatinine 1.99 H Est Cr Clr Drug Dosing 42.2 Est GFR ( Amer) 38.8 Est GFR (Non-Af Amer) 33.5 BUN/Creatinine Ratio 38.0 H Glucose 253 H POC Glucose 241 H Osmolality 302 H Calcium 9.2 Magnesium Urine Osmolality Ur Random Sodium 11/19/18 11/19/18 11/20/18 20:56 Unknown 06:10 WBC RBC Hgb Hct MCV MCH MCHC RDW Std Deviation RDW Coeff of Joe Plt Count MPV Sodium Potassium Chloride Carbon Dioxide Anion Gap BUN Creatinine Est Cr Clr Drug Dosing Est GFR ( Amer) Est GFR (Non-Af Amer) BUN/Creatinine Ratio Glucose POC Glucose 244 H Osmolality Calcium Magnesium Urine Osmolality 371 L Ur Random Sodium 22 11/20/18 11/20/18 11/20/18 06:10 06:16 06:16 WBC 6.87 RBC 4.60 L Hgb 14.7 Hct 41.8 L MCV 90.9 MCH 32.0 MCHC 35.2 RDW Std Deviation 50.7 H RDW Coeff of Joe 15.4 H Plt Count 190 MPV 9.6 Sodium 134 L Potassium 3.6 Chloride 93 L Carbon Dioxide 33 H Anion Gap 8.0 BUN 64 H Creatinine 1.67 H D Est Cr Clr Drug Dosing 49.9 Est GFR ( Amer) 48.0 Est GFR (Non-Af Amer) 41.4 BUN/Creatinine Ratio 38.1 H Glucose 195 H POC Glucose Osmolality Calcium 9.7 Magnesium 2.3 Urine Osmolality Ur Random Sodium 13 11/20/18 11/20/18 07:16 11:16 WBC RBC Hgb Hct MCV MCH MCHC RDW Std Deviation RDW Coeff of Joe Plt Count MPV Sodium Potassium Chloride Carbon Dioxide Anion Gap BUN Creatinine Est Cr Clr Drug Dosing Est GFR ( Amer) Est GFR (Non-Af Amer) BUN/Creatinine Ratio Glucose POC Glucose 219 H 290 H Osmolality Calcium Magnesium Urine Osmolality Ur Random Sodium Diagnostic Findings Telemetry notes rate controlled atrial fibrillation. PG Care Time/CCT Total # of Minutes Spent Total Time Spent with Patient: Total time spent is greater than 50% in coordination of care (as documented) at patient's floor/unit and/or counseling patient: (1) CAD (coronary artery disease) Associated angina: without angina Coronary Disease-Associated Artery/Lesion type: [place] artery [place] vs. transplanted heart: [place] heart Qualified Code(s): I25.10 - Atherosclerotic heart disease of [place] coronary artery without angina pectoris
--- NOTE | 2018-11-20 14:38 | Discharge Summary ---
Date of Service November 20, 2018 Admission HPI Per Admitting Provider History obtained from patient and records. Medical history significant for chronic systolic heart failure secondary to ischemic cardiomyopathy (EF of 25-30% TTE 2018) sp PPM, history CAD as per records, history of AFib on Coumadin, valvular heart disease (MR, TR, AR), HTN, hyperlipidemia, DM2, insulin requiring, ANTOINETTE on CPAP, anxiety/mood disorder, CRI (baseline creatinine 1.3-1.4, chronic anemia (baseline hemoglobin of 13). Recent confinement April 2018 for gastroenteritis. Patient seen by [facility] on 3 occasions last month for weight gain, exertional shortness of breath despite changes with diuretic regimen. Recent outpatient TTE showed unchanged LV systolic function on initial read as per documentation. Denies dietary indiscretion. The last few days patient noted junky cough symptoms with some shortness of breath. No aspiration, no fever, no chills, unsure about sick contacts. Patient noted dizziness symptoms described as lightheadedness. Weight gain of 10 pounds in the last 2 weeks using home scale despite compliance with diuretic regimen changes. Patient given NSS upon arrival at the ER. 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 Admission Exam Per Admitting Provider GENERAL: Comfortable, watching television, obese, no respiratory distress SKIN: Pallor, warm HEENT: Bespectacled, pale palpebral conjunctivae, no ptosis, dry buccal mucosa NECK : Supple, short neck, no tenderness CHEST : Decreased breath sounds, occasional expiratory wheeze, no tenderness HEART : Irregular, systolic murmur ABDOMEN: Healed incisional scar, markedly distention, nontender EXTREMITIES : Bilateral LE swelling, no LE tenderness, no other conspicuous deformities noted NEUROLOGIC : Coherent, no facial asymmetry, no other gross focality Principal Diagnosis Dehydration, BRENT, hypokalemia Discharge Data Allergies Allergy/AdvReac Type Severity Reaction Status Date / Time Penicillins Allergy Mild childhood Verified 11/18/18 17:11 reaction codeine AdvReac Mild NAUSEA, Verified 11/18/18 17:11 LIGHTHEADEDNESS simvastatin AdvReac Mild makes him Verified 11/18/18 17:11 feel like he is high Consultations 11/18/18 19:39 ED Decision to Admit Stat 11/18/18 21:44 Consult Cardiology Routine Consult Nephrology Routine Ordered Studies 11/18/18 20:03 US abdomen ltd ascites Urgent Hospital Course (1) Dehydration: (2) Acute hyponatremia: (3) Acute hypokalemia: (4) Acute kidney injury: (5) Systolic and diastolic CHF, chronic: (6) Atrial fibrillation, chronic: (7) Acute bronchitis: (8) DMII (diabetes mellitus, type 2): 68-year-old man with known systolic and diastolic heart failure presented to the emergency room with lightheadedness and dizziness. He had been on metolazone 5 mg daily for the past 5 days per instruction from the heart failure clinic for weight gain, in the setting of daily torsemide 300 mg daily. He was admitted to the Hospitalist service and his diuretics were held in the setting of acute renal failure, hyponatremia, hypokalemia. He received IV fluids overnight with a complete resolution of symptoms. BRENT improved but not to baseline. Nephrology was consulted and agreed with stopping IV fluids on hospital day 2 and continuing fluid restriction while continuing to hold diuretics. He had hyponatremia on admission consistent with dehydration and diuretic use with a serum sodium of 122 which improved appropriately. Entresto was also held during this hospitalization. Cardiology was consulted and agreed with initial IV fluids for dehydration and interruption of his diuretic therapy. By hospital day 3 his creatinine was 1.67, close to his baseline and improved. He was clinically improved and symptom-free for 24 hours. He was hemodynamically stable and oxygenating well. He was afebrile and mentating at baseline. He was ambulating at baseline. Physical exam was unremarkable including clear lungs, to auscultation and no evidence of hypervolemia on exam. He had no edema, no JVD and demonstrated no work of breathing. He did have a slight elevation in heart rate in the 90s as his Toprol was reduced from 100 twice daily to 25 twice daily on admission for unknown reason. Regular dose of 100 twice daily was continued at time of discharge. Additionally he was instructed to hold any diuretics including Entresto on day of discharge and restarting them the following day. Torsemide was changed to 100 mg twice daily, and no further metolazone was recommended. He was discharged in stable condition with close primary care follow-up recommended. Additionally, nephrology recommended a basic metabolic panel to be performed on 11/21 to ensure continued improvement in renal function and electrolyte stability. A prescription was given to him at time of discharge with results to be sent to Dr. Delmer Gracia. A primary care follow-up was scheduled for him at time of discharge. Of note he also presented with respiratory symptoms including a productive cough of yellowish sputum. Chest x-ray was clear for any infiltrate and he was treated with doxycycline for acute bronchitis. Short course of this was continued at time of discharge. Additionally of note his diabetes is uncont rolled on current therapy and close primary care follow-up was recommended to get better control of this. Total Time Total Time Spent Total Time Spent (In Minutes): 60 Total Time Includes: Examination of the Patient, Discharge Planning, Medication Reconciliation and Communication With Other Providers Discharge Plan Discharge Items Patient Disposition: Home - Self-Care Reason For Visit: HYPOTENSION,CHF Discharge Diagnosis: Dehydration, BRENT, hypokalemia Condition: Good Discharge Goals: Improve disease control Activity: Resume your previous activity Non-emergency contact: Primary Care Provider and Pouncer Call non-emergency contact if: you have any medication questions, your symptoms worsen, your pain is not controlled, your pain is worsening, your pain is unusual for you, your pain is concerning for you and you have a fever Follow-up/Referrals: Delmer Gracia MD [Primary Care Provider] - Diet: Carb Consistent or DM2 and Low Sodium (2gm) Fluids: 2000ml (8 cups) Other Ambulatory Orders: Basic Metabolic Panel (Routine) Timeframe: 1 Day Location: Determined by Patient Ordered By: Lindsay Flores Addtl Provider Instructions: Please take all medications as instructed below. You may restart your torsemide at a reduced dose of 100 mg twice daily beginning tomorrow, 11/21. Please continue to follow-up at the heart failure clinic. Tomorrow's morning weight should be your new dry weight. Please avoid any further metolazone. Please restart your Entresto again starting tomorrow. Do not take any dose tonight. It is recommended to continue following closely with the Heart Failure clinic as you have been. The following appointment was set up for you through primary care: 11/27/2018 3:10 PM Delmer Gracia MD [facility] You will need nonfasting blood work on 11/22 you are being given a prescription to get this done at the lab with results sent to your primary care doctor, Dr. Delmer Gracia. It is recommended that you follow-up in the [facility] chronic kidney disease clinic in 2 to 3 months time. This can be set up through your primary care doctor. Your blood sugar was notably uncontrolled. You will need to discuss better control of blood sugar with your primary care provider at follow-up. Please continue to follow-up with your anticoagulation clinic with a repeat INR checked this week. It is recommended to not exceed a maximum dose of allopurinol over 300 mg daily. Please discuss this further with your primary care physician. It was a pleasure taking care of you! Please call if you have any questions or problems. You can reach a [facility] hospitalist on duty at [facility] 24 hours a day by calling [phone]. Take care of yourself. Lindsay Flores, DO [facility] Hospitalist Prescriptions: New doxycycline hyclate 100 mg Capsule 100 mg PO BID Qty: 10 RF: 0 torsemide 100 mg tablet 100 mg PO BID Qty: 60 RF: 0 Continued warfarin 5 mg Tablet 2.5 mg PO 6XWK RF: 0 allopurinol 300 mg tablet 300 mg PO QAM RF: 0 atorvastatin 40 mg Tablet 40 mg PO QPM RF: 0 metoprolol succinate 100 mg Tablet Extended Release 24 Hr 100 mg PO BID RF: 0 potassium chloride 10 mEq Tablet Extended Release 10 meq PO BID RF: 0 aspirin 81 mg Tablet,Delayed Release (Dr/Ec) 81 mg PO QAM RF: 0 warfarin 5 mg Tablet 5 mg PO WK RF: 0 venlafaxine 150 mg Tablet Extended Release 24hr 150 mg PO BID RF: 0 digoxin 125 mcg Tablet 125 mcg PO Q OTHER DAY RF: 0 Lantus Solostar U-100 Insulin 100 unit/mL (3 mL) insulin pen 35 unit subcut QAM RF: 0 allopurinol 100 mg Tablet 100 mg PO QAM RF: 0 meclizine 25 mg Tablet 25 mg PO TID PRN (Reason: Dizziness) RF: 0 Novolog Flexpen U-100 Insulin 100 unit/mL (3 mL) insulin pen SQ TIDM RF: 0 colchicine [Colcrys] 0.6 mg tablet 0.6 mg PO BID RF: 0 Entresto 97-103 mg tablet 2 tab PO BID RF: 0 Discontinued torsemide 100 mg tablet 100 - 200 mg PO BID RF: 0 Stand-Alone Forms: [facility] Discharge Orders: Discharge Order (Routine); Ordered 11/20/18 Ordered By: Lindsay Flores Admission Data Admit Date/Time: 11/18/18 20:03 Attending Provider: Lindsay Flores Admit Provider: Dylan Presley Primary Care Provider: Delmer Gracia Other Providers: Dylan Presley ; Harrison Vargas ; Ana Maria Gracia Service: Telemetry
[2018-11-20] MEDS ORDERED: DIGOXIN 0.125 MG TAB PO SCH (16:00)
[2018-11-20] MEDS ORDERED: WARFARIN SOD 2.5 MG TAB PO SCH (16:00)
[2018-11-20] MEDS ORDERED: INSULIN GLARGINE SOLOSTAR 100 UNITS/ML 3 ML PEN SQ SCH (21:00)
== END 2018-11-20 15:55 | disposition home or self-care (01) | DRG 683 ==
LOC: ED 16:25 → 2S 20:03

== ENCOUNTER 2018-12-21 12:00 | Inpatient (IN) ==
[2018-12-21] MEDS ORDERED: ONDANSETRON INJ 2 MG/ML 2 ML VIAL IV PRN (12:19)
[2018-12-21] MEDS ORDERED: ACETAMINOPHEN 325 MG TAB PO PRN (12:19)
[2018-12-21 13:17] LABS: INR 2.5 (0.9-1.1); Prothrombin Time 23.9 Seconds (9.0-12.0)
[2018-12-21 13:19] LABS: Hematocrit (blood only) 41.3 % (42-52); Mean Corpuscular Hemoglobin 32.3 pg (25-34); Mean Corpuscular Hgb Conc 33.9 g/dL (32-36); Mean Corpuscular Volume 95.2 fL (80-100); Mean Platelet Volume 9.5 fL (7.4-10.4); Platelet Count 191 K/uL (130-400); RDW Coefficient of Variation 17.3 % (11.5-14.5); RDW Standard Deviation 60.5 fL (36.4-46.3); Red Blood Count 4.34 M/uL (4.7-6.1)
[2018-12-21 13:36] LABS: BUN Creatinine Ratio 30.6 (10-20); Calcium 9.5 mg/dl (8.5-10.1); Creatinine Clr Calc Pharmacy 42.4 ml/min; Est GFR (African American) 38.4; Est GFR (Non-African American) 33.1; Potassium 3.8 mmol/L (3.5-5.1)
[2018-12-21] MEDS ORDERED: DOBUTamine / D5W 500 MG/250 ML BAG IV SCH (14:20)
[2018-12-21] MEDS ORDERED: FUROSEMIDE 100 MG in SYRINGE 0 ML IV ONE (14:25)
[2018-12-21] MEDS: INSULIN ASPART 100 UNITS/ML 3 ML PEN SC SCH ×3 (14:28→20:28)
--- NOTE | 2018-12-21 14:33 | History & Physical Report ---
Date of Service December 21, 2018 Assessment & Plan (1) Acute on chronic systolic (congestive) heart failure: per records his weight is up compared to one month ago he is 114kg compared to 109kg on 11/20/18 per cardiology recommendations, will initiate on Dobutamine at 2.5mcg to improve contractility Lasix 100mg IV will be administered this afternoon check Cr in the AM prior to ordering further diuresis and should discuss with cardiology Dr. Riggs following over the weekend BNP only 529 on admission although he does appear volume overloaded in legs fluid restrict to 1500cc/day, daily weights, strict I/O continue on Entresto, Toprol per orders from cardiology (2) Acute kidney injury superimposed on chronic kidney disease: CKD stage III, baseline Cr based on prior nephrology consultation has been 1.4-1.7 on prior hospitalization he was at 2.31 on admission and went down to 1.6 on discharge monitor Cr closely, although his weight is up he may be volume constricted intravasclarly will give just one dose of Lasix 100mg IV and place on Dobutamine repeat BMP in the morning and make further decisions on diuretics, should d/w cardiology can consider getting nephrology involved if Cr climbs higher (3) DMII (diabetes mellitus, type 2): continue on Lantus, Novolog SS Diabetic diet (4) SOB (shortness of breath): at this point he seems to have NYHA class III symptoms gets short of breath getting dressed, taking shower (5) Atrial fibrillation, chronic: continue Toprol takes Digoxin every other day (6) AICD (automatic cardioverter/defibrillator) present: (7) Acute hyponatremia: Na low at 130 was lower last admission will repeat tomorrow AM Patient was [place] [facility] discovered after admission that he is [facility] PCP will transfer to their service and they will follow History of Present Illness Chief Complaint: I can't lose this fluid Primary Care Provider: Delmer Gracia MD 68 yo male with history of diastolic and systolic HF, EF of 35% on echo in November 2018, presents to the hospital from Dr. Vargas's office a direct admission for acute on chronic heart failure. His weight is up by about 10lbs from one month ago and he c/o dyspnea on exertion, dyspnea with getting dressed and taking a shower. He can walk about 15-20 feet before having to stop due to dyspnea. He takes about 1-2 minutes to recover before he can walk again. Getting dressed is even more taxing. He admits to increase swelling in his legs, left leg more than the right. He is typically on Torsemide 300mg daily. He has been seen by Hemal Leigh in the cardiology office twice this week, given Lasix 100mg IV and then given Lasix 160mg IV with only modest results. Case was discussed with Dr. Vargas today in the office and they decided to directly admit the patient for more aggressive diuresis in the hospital using Dobutamine. Patient says he is compliant with fluid restriction and he weighs himself daily. He has been compliant with diuretics, Entresto, Toprol but his weight will not go down. Denies any recent chest pain or pressure. Denies cough or fever or chills. Denies nausea, diarrhea or abdominal pain. He has chronic venous stasis and color changes in his legs bilaterally. He is compliant with his insulin regimen at home, but he does experience hyperglycemia, not always compliant with diabetic diet. Allergies Allergy/AdvReac Type Severity Reaction Status Date / Time Penicillins Allergy Mild childhood Verified 12/21/18 11:17 reaction codeine AdvReac Mild NAUSEA, Verified 12/21/18 11:17 LIGHTHEADEDNESS simvastatin AdvReac Mild makes him Verified 12/21/18 11:17 feel like he is high Home Medications Home Medications Medication Instructions Recorded Confirmed Type aspirin 81 mg PO QAM 01/25/18 12/17/18 History atorvastatin 40 mg PO QPM 01/25/18 12/17/18 History warfarin 5 mg PO WK 01/25/18 12/17/18 History warfarin 2.5 mg PO 6XWK 02/17/18 11/18/18 History digoxin 125 mcg PO Q OTHER DAY 05/10/18 12/17/18 History Novolog Flexpen U-100 Insulin 0 units SQ TIDM 09/11/18 12/17/18 History allopurinol 100 mg PO QAM 09/11/18 12/17/18 History allopurinol 300 mg PO QAM 09/26/18 12/17/18 History Entresto 2 tab PO BID 11/18/18 12/17/18 History blood sugar diagnostic strips #10 ea 12/03/18 12/03/18 History lancets 28 gauge #25 ea 12/03/18 12/03/18 History metoprolol succinate ER 100 mg 200 mg PO DAILY tab 12/03/18 12/17/18 History tablet,extended release 24 hr potassium chloride ER 10 mEq 10 meq PO DAILY PRN tab 12/03/18 12/17/18 History tablet,extended release torsemide 100 mg tablet 100 mg PO BID tab 12/03/18 12/17/18 History venlafaxine ER 150 mg 150 mg PO TID tab 12/03/18 12/17/18 History tablet,extended release 24 hr insulin glargine (U-100) 100 45 units SUBCUT QAM ml 12/17/18 12/17/18 History unit/mL (3 mL) subcutaneous pen Past Med/Surg History Social History Preferred Language: [place] Communication Ability: Effective 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 Beliefs That Will Affect Care: None marital status: Current Living Situation: Spouse Other Information That Helps Us Care for You: No Feels Safe at Home: Yes Safety Concerns: Feels Safe At This Time Smoking Status: Never smoker Second Hand Exposure: No ; Hx Alcohol Use: No Hx Substance Use: No Review of Systems Review of Systems: All systems reviewed & are unremarkable except as noted in HPI & below Physical Exam Constitutional: WD/WN, vitals as above + overweight; no acute distress Eyes: PERRL, conjunctivae normal, anicteric sclerae ENMT: external ear and nose normal, oropharynx normal Neck: trachea midline, no thyromegaly Respiratory: normal respiratory effort, lungs clear to auscultation Cardiovascular: Rate/Rhythm: regular rate and regular rhythm Heart Sounds: normal S1 and normal S2; no murmur Vessels: no JVD (while sitting fully upright) Extremities: normal capillary refill and + edema (tense, bilaterally in shins, more on left side) Gastrointestinal (Abdomen): normal bowel sounds, soft, nontender, no hepatosplenomegaly Musculoskeletal: no cyanosis or clubbing, extremities motor strength 5/5 Skin: no rashes, warm and dry Neurologic: patellar DTR's 2+ bilat, sensation intact and PERRL, EOMI, accommodation nl, no face palsy, no dysarthria Psychiatric: A+Ox3, euthymic affect Lymphatic: no cervical or axillary lymphadenopathy Results & Data Vital Signs (Past 12 Hours) Vital Signs Temp Pulse Resp BP Pulse Ox 12/21/18 12:48 36.5 C 87 20 91/56 L 96 Laboratory Results Laboratory Results - last 24 hr 12/21/18 12/21/18 12/21/18 12:52 12:55 12:55 WBC 7.30 RBC 4.34 L Hgb 14.0 Hct 41.3 L MCV 95.2 MCH 32.3 MCHC 33.9 RDW Std Deviation 60.5 H RDW Coeff of Joe 17.3 H Plt Count 191 MPV 9.5 PT INR Sodium 130 L Potassium 3.8 Chloride 92 L Carbon Dioxide 28 Anion Gap 10.0 BUN 62 H Creatinine 2.01 H Est Cr Clr Drug Dosing 42.4 Est GFR ( Amer) 38.4 Est GFR (Non-Af Amer) 33.1 BUN/Creatinine Ratio 30.6 H Glucose 199 H POC Glucose 199 H Calcium 9.5 NT-Pro-B Natriuret Pep 526 12/21/18 12:55 WBC RBC Hgb Hct MCV MCH MCHC RDW Std Deviation RDW Coeff of Joe Plt Count MPV PT 23.9 H INR 2.5 H Sodium Potassium Chloride Carbon Dioxide Anion Gap BUN Creatinine Est Cr Clr Drug Dosing Est GFR ( Amer) Est GFR (Non-Af Amer) BUN/Creatinine Ratio Glucose POC Glucose Calcium NT-Pro-B Natriuret Pep Medications Administered Current Inpatient Medications Acetaminophen (Tylenol) 650 mg PO Q4H PRN PRN Reason: Pain or Fever Stop: 01/20/19 12:18 Allopurinol (Zyloprim) [address] [facility] Stop: 01/21/19 08:59 Aspirin (Ecotrin Ectab) [address] [facility] Stop: 01/21/19 08:59 Atorvastatin Calcium (Lipitor) 40 mg PO QPM [facility] Stop: 01/20/19 20:59 Digoxin (Lanoxin) 0.125 mg PO Q OTHER DAY [facility] Stop: 01/20/19 13:59 Dobutamine HCl/Dextrose (Dobutamine / D5w) 500 mg in 250 mls @ 8.543 mls/hr IV .Q24H [facility]; Protocol Stop: 01/20/19 14:19 Insulin Aspart (Novolog Flexpen) [address] [facility] Stop: 01/20/19 16:29 Last Admin: 12/21/18 14:28 Dose: 7 units Documented by: Insulin Glargine (Lantus Solostar Pen) [address] [facility] Stop: 01/21/19 08:59 Metoprolol Succinate (Toprol Xl) [address] [facility] Stop: 01/21/19 08:59 Non-Formulary Medication (Sacubitril-Valsartan [Entresto]) [address] [facility] Stop: 01/20/19 20:59 Ondansetron HCl (Zofran) 4 mg IV Q6H PRN PRN Reason: Nausea Stop: 01/20/19 12:18 Venlafaxine HCl (Effexor Extended Release) [address] [facility] Stop: 01/20/19 13:59 Warfarin Sodium (Coumadin) 2.5 mg PO DAILY@1600 [facility] Stop: 01/20/19 15:59 Code Status & VTE Plan VTE Prophylaxis Plan VTE Prophylaxis will be ordered: Yes PG Care Time/CCT Total # of Minutes Spent Total Time Spent with Patient: Total time spent is greater than 50% in coordination of care (as documented) at patient's floor/unit and/or counseling patient:
[2018-12-21] MEDS ORDERED: GLUCOSE 40% GEL 15 GM TUBE PO PRN (14:45)
[2018-12-21] MEDS ORDERED: GLUCAGON FOR INJ 1 MG VIAL IM PRN (14:45)
[2018-12-21] MEDS ORDERED: GLUCOSE 10 TABS/TUBE PO PRN (14:45)
[2018-12-21] MEDS ORDERED: DEXTROSE 50% 50 ML SYRINGE IV PRN (14:45)
[2018-12-21] MEDS ORDERED: CARBOHYDRATES FOR HYPOGLYCEMIA PO PRN (14:45)
[2018-12-21] MEDS: WARFARIN SOD 2.5 MG TAB PO SCH (16:59)
[2018-12-21] MEDS: ATORVASTATIN 40 MG TAB PO SCH (20:26)
[2018-12-21] MEDS: SACUBITRIL-VALSARTAN 49/51 MG TAB PO SCH (21:06)
[2018-12-21] MEDS: SACUBITRIL-VALSARTAN 24-26 MG TAB PO SCH (21:06)
[2018-12-22 06:57] LABS: Hematocrit (blood only) 37.5 % (42-52); Hemoglobin 12.8 g/dL (14.0-18.0); Mean Corpuscular Hemoglobin 32.7 pg (25-34); Mean Corpuscular Hgb Conc 34.1 g/dL (32-36); Mean Corpuscular Volume 95.7 fL (80-100); Mean Platelet Volume 9.9 fL (7.4-10.4); Platelet Count 172 K/uL (130-400); RDW Coefficient of Variation 17.5 % (11.5-14.5); Red Blood Count 3.92 M/uL (4.7-6.1)
[2018-12-22 07:31] LABS: BUN Creatinine Ratio 26.1 (10-20); Calcium 8.8 mg/dl (8.5-10.1); Creatinine Clr Calc Pharmacy 32.6 ml/min; Est GFR (African American) 28.1; Est GFR (Non-African American) 24.3; Magnesium 2.2 mg/dl (1.8-2.4); Potassium 3.4 mmol/L (3.5-5.1)
[2018-12-22] MEDS: VENLAFAXINE HCL XR 150 MG CAPXR PO SCH (08:42)
[2018-12-22] MEDS: SACUBITRIL-VALSARTAN 49/51 MG TAB PO SCH (08:47)
[2018-12-22] MEDS: METOPROLOL SUCC 50MG EXT REL TAB PO SCH (08:47)
[2018-12-22] MEDS: allopurinoL 300 MG TAB PO SCH (08:47)
[2018-12-22] MEDS: SACUBITRIL-VALSARTAN 24-26 MG TAB PO SCH (08:47)
[2018-12-22] MEDS: INSULIN ASPART 100 UNITS/ML 3 ML PEN SC SCH ×4 (08:49→20:39)
[2018-12-22] MEDS: INSULIN GLARGINE SOLOSTAR 100 UNITS/ML 3 ML PEN SQ SCH (08:51)
[2018-12-22] MEDS ORDERED: DIGOXIN 0.125 MG TAB PO SCH (09:00)
--- NOTE | 2018-12-22 09:29 | Cardiology Progress Note ---
Date of Service December 22, 2018 Assessment & Plan (1) Acute kidney injury superimposed on chronic kidney disease: His creatinine was somewhat elevated at the time of admission is more severely so this morning. This likely represents an element of intravascular depletion. At this point would seem reasonable to discontinue his dobutamine infusion and avoid diuretics through most of the day. We may need to liberalize his volume intake as well. Given his declining renal function I think would be reasonable to stop his digoxin for the time being. (2) Breath, shortness: His breathing difficulty is likely related to his known cardiomyopathy. H owever, his N terminal proBNP was not elevated at the time admission and attempts at aggressive diuresis of only lead to intravascular depletion. It is possible that he simply has right-sided heart disease with resultant lower extremity edema and perhaps increasing abdominal girth. His last echocardiogram suggested normal right ventricular function. Curiously, he was admitted approximately 1 month ago for very similar symptoms under very similar circumstances. Again, he had acute renal injury due to intravascular depletion at that time. While his weight varies so dramatically is unclear. I do not think this is all related to his known systolic or diastolic dysfunction. (3) Systolic and diastolic CHF, chronic: He appears to be well compensated currently. I think we can return him to his usual diuretic regimen once his renal function improves. (4) Ischemic cardiomyopathy: Currently on aggressive medical regimen to include Entresto him metoprolol succinate. (5) AICD (automatic cardioverter/defibrillator) present: Will interrogate his device during this hospitalization in order to see if the OptiVol suggested recent volume increase. (6) CAD (coronary artery disease): No current symptoms to suggest ischemia or acute coronary syndrome. Certainly recurrent ischemia could produce episodes of heart failure. However, his episodes appear to be more subacute. Do not think there is an urgent need for re-evaluation of his coronaries. (7) Atrial fibrillation, chronic: No symptoms. Heart rate slightly elevated currently. This is likely due both to his dobutamine infusion and an element of intravascular depletion. Will continue him on his metoprolol. Will hold his digoxin temporarily until his renal function improved. Subjective The patient is a 60-year-old [facility] with a longstanding history of ischemic cardiomyopathy resulting in both systolic and diastolic heart failure. He presented to the clinic yesterday with complaints increasing abdominal girth and worsening difficulty breathing. He has been seen on an outpatient basis earlier in the week for intravenous diuretic administration. His symptoms have not improved and he is advised to go to the hospital for more intensive attempts at diuresis. Last night he did receive intravenous diuretics and is currently on a dobutamine infusion. This morning he claims to be feeling well. He states that his breathing difficulty is much improved. He has been ambulatory around his room without significant dyspnea. He is not reporting dizziness or lightheadedness. No sense of palpitations. He thinks that his abdominal girth is improved. Review of Systems Review of Systems: Per HPI Physical Exam Physical Exam: The patient is alert and oriented. Mood and affect appeared normal. He answered all questions appropriately. HEENT: Pupils are equal and reactive to light and accommodation. Extraocular movements are intact. The sclerae are anicteric. Neuro: Cranial nerves intact Neck: Patient's neck is supple. He has palpable carotid pulses bilaterally without bruits on auscultation. There is no evidence of jugular venous distention. The thyroid is not enlarged. Lungs: Clear to auscultation bilaterally. He has good air movement without use of accessory muscles. No rales wheezes or rhonchi. Cardiac: Heart demonstrates an irregular rate and rhythm. Normal S1 and S2. No murmurs on examination. Pulses: The patient has palpable radial pulses bilaterally that are equal in intensity Extremities: There was no evidence of hypoperfusion. There is no cyanosis or clubbing. Moderate lower extremity edema with dependent hyperemia. Skin: I did not appreciate any rashes on examination today. Results & Data Vital Signs (Past 12 Hours) Vital Signs Temp Pulse Pulse Pulse Resp BP BP 12/22/18 08:42 99 H 12/22/18 07:46 36.5 C 120 H 20 107/61 12/22/18 04:00 36.5 C 106 H 19 111/73 12/21/18 23:23 36.4 C L 89 20 96/61 L Pulse Ox 12/22/18 08:42 12/22/18 07:46 95 12/22/18 04:00 99 12/21/18 23:23 92 Laboratory Results Abnormal Lab Results 12/21/18 12/21/18 12/21/18 12:52 12:55 12:55 WBC 7.30 RBC 4.34 L Hgb 14.0 Hct 41.3 L MCV 95.2 MCH 32.3 MCHC 33.9 RDW Std Deviation 60.5 H RDW Coeff of Joe 17.3 H Plt Count 191 MPV 9.5 PT INR Sodium 130 L Potassium 3.8 Chloride 92 L Carbon Dioxide 28 Anion Gap 10.0 BUN 62 H Creatinine 2.01 H Est Cr Clr Drug Dosing 42.4 Est GFR ( Amer) 38.4 Est GFR (Non-Af Amer) 33.1 BUN/Creatinine Ratio 30.6 H Glucose 199 H POC Glucose 199 H Calcium 9.5 Magnesium NT-Pro-B Natriuret Pep 526 Hepatitis C Ab Screen 12/21/18 12/21/18 12/21/18 12:55 16:11 20:11 WBC RBC Hgb Hct MCV MCH MCHC RDW Std Deviation RDW Coeff of Joe Plt Count MPV PT 23.9 H INR 2.5 H Sodium Potassium Chloride Carbon Dioxide Anion Gap BUN Creatinine Est Cr Clr Drug Dosing Est GFR ( Amer) Est GFR (Non-Af Amer) BUN/Creatinine Ratio Glucose POC Glucose 185 H 168 H Calcium Magnesium NT-Pro-B Natriuret Pep Hepatitis C Ab Screen 12/22/18 12/22/18 12/22/18 06:10 06:10 06:10 WBC 7.70 RBC 3.92 L Hgb 12.8 L Hct 37.5 L MCV 95.7 MCH 32.7 MCHC 34.1 RDW Std Deviation 61.0 H RDW Coeff of Joe 17.5 H Plt Count 172 MPV 9.9 PT INR Sodium 133 L Potassium 3.4 L Chloride 89 L Carbon Dioxide 29 Anion Gap 15.0 H BUN 68 H Creatinine 2.60 H D Est Cr Clr Drug Dosing 32.6 Est GFR ( Amer) 28.1 Est GFR (Non-Af Amer) 24.3 BUN/Creatinine Ratio 26.1 H Glucose 229 H POC Glucose Calcium 8.8 Magnesium 2.2 NT-Pro-B Natriuret Pep Hepatitis C Ab Screen Neg 12/22/18 07:25 WBC RBC Hgb Hct MCV MCH MCHC RDW Std Deviation RDW Coeff of Joe Plt Count MPV PT INR Sodium Potassium Chloride Carbon Dioxide Anion Gap BUN Creatinine Est Cr Clr Drug Dosing Est GFR ( Amer) Est GFR (Non-Af Amer) BUN/Creatinine Ratio Glucose POC Glucose 258 H Calcium Magnesium NT-Pro-B Natriuret Pep Hepatitis C Ab Screen PG Care Time/CCT Total # of Minutes Spent Total Time Spent with Patient: Total time spent is greater than 50% in coordination of care (as documented) at patient's floor/unit and/or counseling patient: (1) CAD (coronary artery disease) Coronary Disease-Associated Artery/Lesion type: [place] artery [place] vs. transplanted heart: [place] heart Associated angina: without angina Qualified Code(s): I25.10 - Atherosclerotic heart disease of [place] coronary artery without angina pectoris
[2018-12-22] MEDS: ASPIRIN 81 MG ECTAB PO SCH (09:41)
--- NOTE | 2018-12-22 14:35 | Hospitalist Progress Note ---
Date of Service December 22, 2018 Assessment & Plan (1) Acute kidney injury superimposed on chronic kidney disease: Secondary to diuresis, leading to intravascular volume depletion, nonoliguric ATN Baseline CKD stage III, creatinine approximately 1.41.6 as per lab work on 11/2018 Patient was given 100 mg IV Lasix, creatinine worsening more than 2 Patient input from cardiology Patient appears to be compensated volume status Ordered to hold off diuretics Repeat PRP in a.m. Avoid NSAIDs, nephrotoxins Nephrology consulted, patient was seen by [facility] nephrology in the past (2) Acute on chronic systolic (congestive) heart failure: Presented with decompensated CHF, volume overload, Responded well to diuresis Dobutamine infusion discontinued Cardiology following, appreciate input We will hold Lasix due to acute renal failure Ischemic cardiomyopathy History of ischemic cardiomyopathy with biventricular heart failure, EF 30% Status post AICD placement Volume status remains stable Cardiology following, appreciate input Coronary artery disease No current symptoms of ischemia or acute coronaries symptom Continue outpatient meds (3) DMII (diabetes mellitus, type 2): Continue insulin sliding scale (4) SOB (shortness of breath): Presented to decompensated CHF, symptom has completely resolved No dyspnea on exertion, no orthopnea, ambulating independently without any symptom CODE STATUS: FULL CODE DVT prophylaxis: On Coumadin, INR therapeutic Disposition: Discharge home Subjective Patient is sitting up on chair, denies of any shortness of breath, no orthopnea, feels his breathing has improved markedly Improvement of lower extremity swelling The hallway multiple times today, no dyspnea on exertion, no hypoxia no chest heaviness Does not have any cough, no fever or chills Physical Exam Constitutional: WD/WN, vitals as above no acute distress Eyes: PERRL, conjunctivae normal, anicteric sclerae ENMT: external ear and nose normal, oropharynx normal Neck: trachea midline, no thyromegaly Respiratory: normal respiratory effort; no respiratory distress, no labored breathing, does not use accessory muscles and no cough Auscultation: + rales (Bibasilar Rales); no wheezes Cardiovascular: Rate/Rhythm: regular rate and regular rhythm Bilateral +1 pedal edema with chronic venous stasis change Gastrointestinal (Abdomen): normal bowel sounds, soft, nontender, no hepatosplenomegaly Musculoskeletal: no cyanosis or clubbing, extremities motor strength 5/5 Neurologic: PERRL, EOMI, accommodation nl, no face palsy, no dysarthria Results & Data Vital Signs (Past 12 Hours) Vital Signs Temp Pulse Pulse Resp BP BP Pulse Ox 12/22/18 10:54 36.5 C 94 H 18 138/75 93 12/22/18 08:42 99 H 12/22/18 07:46 36.5 C 120 H 20 107/61 95 12/22/18 04:00 36.5 C 106 H 19 111/73 99
[2018-12-22] MEDS ORDERED: POTASSIUM CHLORIDE 20 MEQ TABCR PO STA (16:51)
[2018-12-22] MEDS: WARFARIN SOD 2.5 MG TAB PO SCH (17:14)
[2018-12-22] MEDS: ATORVASTATIN 40 MG TAB PO SCH (20:40)
[2018-12-23 05:18] LABS: Appearance Urine Clear (Clear); Bilirubin Urine Negative (Negative); Blood Urine Negative (Negative); Color Urine Yellow; Glucose Urine UA Negative (Negative); Ketones Urine Negative (Negative); Leukocyte Esterase Urine Negative (Negative); Nitrite Urine Negative (Negative); Protein Urine Negative (Negative); Specific Gravity Urine 1.008 (1.000-1.030); Urobilinogen Urine Negative (Negative)
[2018-12-23 06:45] LABS: INR 2.6 (0.9-1.1)
[2018-12-23 07:29] LABS: BUN Creatinine Ratio 37.4 (10-20); Calcium 9.7 mg/dl (8.5-10.1); Creatinine Clr Calc Pharmacy 43.3 ml/min; Est GFR (African American) 39.8; Est GFR (Non-African American) 34.3
[2018-12-23] MEDS: allopurinoL 300 MG TAB PO SCH (08:20)
[2018-12-23] MEDS: INSULIN GLARGINE SOLOSTAR 100 UNITS/ML 3 ML PEN SQ SCH (08:20)
[2018-12-23] MEDS: ASPIRIN 81 MG ECTAB PO SCH (08:20)
[2018-12-23] MEDS: METOPROLOL SUCC 50MG EXT REL TAB PO SCH (08:20)
[2018-12-23] MEDS: INSULIN ASPART 100 UNITS/ML 3 ML PEN SC SCH ×2 (08:22→12:21)
[2018-12-23] MEDS: VENLAFAXINE HCL XR 150 MG CAPXR PO SCH (08:25)
--- NOTE | 2018-12-23 10:36 | Cardiology Progress Note ---
Date of Service December 23, 2018 Assessment & Plan (1) Acute kidney injury superimposed on chronic kidney disease: His creatinine is improved today. This likely represents some Re equilibration of his intravascular volume. His volume status can be very tenuous. I think would be reasonable restart his standard outpatient diuretic. Digoxin could also be restarted. (2) Breath, shortness: Clinically much improved. Although he did not affect a significant diuresis by report, his symptoms improved dramatically after admission. Interrogation of his device did suggest that his transthoracic impedance was lower recently. This suggests progressive volume overload and pulmonary edema. With treatment this has returned to normal. (3) Systolic and diastolic CHF, chronic: He appears to be well compensated currently. I think we can return him to his usual diuretic regimen today. (4) Ischemic cardiomyopathy: Currently on aggressive medical regimen to include Entresto and metoprolol succinate. (5) AICD (automatic cardioverter/defibrillator) present: Normal function. No therapies. (6) CAD (coronary artery disease): No current symptoms to suggest ischemia or acute coronary syndrome. Certainly recurrent ischemia could produce episodes of heart failure. However, his episodes appear to be more subacute. Do not think there is an urgent need for re-evaluation of his coronaries. (7) Atrial fibrillation, chronic: Overall rates appear to be better today. This likely is reflective of both stopping his dobutamine and better intravascular volume status. Subjective This morning the patient claims to be feeling quite well. He states his breathing is back to baseline. He has been ambulating around the yang without limiting dyspnea. He denies dizziness or lightheadedness. He is anxious for discharge. Review of Systems Review of Systems: Per HPI Physical Exam Physical Exam: The patient is alert and oriented. Mood and affect appeared normal. He answered all questions appropriately. HEENT: Pupils are equal and reactive to light and accommodation. Extraocular movements are intact. The sclerae are anicteric. Neuro: Cranial nerves intact Lungs: Clear to auscultation bilaterally. He has good air movement without use of accessory muscles. No rales wheezes or rhonchi. Cardiac: Heart demonstrates an irregular rate and rhythm. Normal S1 and S2. No murmurs on examination. Pulses: The patient has palpable radial pulses bilaterally that are equal in intensity Extremities: There was no evidence of hypoperfusion. He has dependent edema in both lower extremities of moderate severity. Varicose veins noted. Venous pooling in both lower extremities. Skin: I did not appreciate any rashes on examination today. Results & Data Vital Signs (Past 12 Hours) Vital Signs Temp Pulse Resp BP Pulse Ox 12/23/18 07:32 36.4 C L 84 18 104/68 96 12/23/18 03:51 36.9 C 87 18 90/60 L 93 12/23/18 00:20 36.9 C 91 H 16 127/75 95 Laboratory Results Abnormal Lab Results 12/22/18 12/22/18 12/22/18 11:25 16:18 20:31 PT INR Sodium Potassium Chloride Carbon Dioxide Anion Gap BUN Creatinine Est Cr Clr Drug Dosing Est GFR ( Amer) Est GFR (Non-Af Amer) BUN/Creatinine Ratio Glucose POC Glucose 227 H 187 H 172 H Calcium Urine Color Urine Appearance Urine pH Ur Specific [place] Urine Protein Urine Glucose (UA) Urine Ketones Urine Blood Urine Nitrite Urine Bilirubin Urine Urobilinogen Ur Leukocyte Esterase 12/23/18 12/23/18 12/23/18 05:10 06:02 06:02 PT 25.0 H INR 2.6 H Sodium 134 L Potassium 4.0 D Chloride 94 L Carbon Dioxide 32 Anion Gap 8.0 BUN 73 H Creatinine 1.95 H D Est Cr Clr Drug Dosing 43.3 Est GFR ( Amer) 39.8 Est GFR (Non-Af Amer) 34.3 BUN/Creatinine Ratio 37.4 H Glucose 184 H POC Glucose Calcium 9.7 Urine Color Yellow Urine Appearance Clear Urine pH 6.0 Ur Specific [place] 1.008 Urine Protein Negative Urine Glucose (UA) Negative Urine Ketones Negative Urine Blood Negative Urine Nitrite Negative Urine Bilirubin Negative Urine Urobilinogen Negative Ur Leukocyte Esterase Negative 12/23/18 07:24 PT INR Sodium Potassium Chloride Carbon Dioxide Anion Gap BUN Creatinine Est Cr Clr Drug Dosing Est GFR ( Amer) Est GFR (Non-Af Amer) BUN/Creatinine Ratio Glucose POC Glucose 184 H Calcium Urine Color Urine Appearance Urine pH Ur Specific [place] Urine Protein Urine Glucose (UA) Urine Ketones Urine Blood Urine Nitrite Urine Bilirubin Urine Urobilinogen Ur Leukocyte Esterase PG Care Time/CCT Total # of Minutes Spent Total Time Spent with Patient: Total time spent is greater than 50% in coordination of care (as documented) at patient's floor/unit and/or counseling patient: (1) CAD (coronary artery disease) Coronary Disease-Associated Artery/Lesion type: [place] artery [place] vs. transplanted heart: [place] heart Associated angina: without angina Qualified Code(s): I25.10 - Atherosclerotic heart disease of [place] coronary artery without angina pectoris
[2018-12-23] MEDS ORDERED: TORSEMIDE 100 MG TAB PO SCH (11:00)
--- NOTE | 2018-12-23 12:02 | Discharge Summary ---
Date of Service December 23, 2018 Admission HPI Per Admitting Provider 68 yo male with history of diastolic and systolic HF, EF of 35% on echo in November 2018, presents to the hospital from Dr. Vargas's office a direct admission for acute on chronic heart failure. His weight is up by about 10lbs from one month ago and he c/o dyspnea on exertion, dyspnea with getting dressed and taking a shower. He can walk about 15-20 feet before having to stop due to dyspnea. He takes about 1-2 minutes to recover before he can walk again. Getting dressed is even more taxing. He admits to increase swelling in his legs, left leg more than the right. He is typically on Torsemide 300mg daily. He has been seen by Hemal Leigh in the cardiology office twice this week, given Lasix 100mg IV and then given Lasix 160mg IV with only modest results. Case was discussed with Dr. Vargas today in the office and they decided to directly admit the patient for more aggressive diuresis in the hospital using Dobutamine. Patient says he is compliant with fluid restriction and he weighs himself daily. He has been compliant with diuretics, Entresto, Toprol but his weight will not go down. Denies any recent chest pain or pressure. Denies cough or fever or chills. Denies nausea, diarrhea or abdominal pain. He has chronic venous stasis and color changes in his legs bilaterally. He is compliant with his insulin regimen at home, but he does experience hyperglycemia, not always compliant with diabetic diet. Principal Diagnosis ACUTE ON CHRONIC SYSTOLIC HEART FAILURE/RESOLVED ACUTE KIDNEY INJURY IN THE SETTING OF CKD STAGE 3 Discharge Exam Constitutional WD/WN, vitals as above no acute distress Eyes PERRL, conjunctivae normal, anicteric sclerae ENMT external ear and nose normal, oropharynx normal Neck trachea midline, no thyromegaly Respiratory normal respiratory effort; no respiratory distress, no labored breathing, does not use accessory muscles and no cough Auscultation: + rales (Bibasilar Rales); no wheezes Cardiovascular Rate/Rhythm: regular rate and regular rhythm Gastrointestinal (Abdomen) normal bowel sounds, soft, nontender, no hepatosplenomegaly Musculoskeletal no cyanosis or clubbing, extremities motor strength 5/5 Neurologic PERRL, EOMI, accommodation nl, no face palsy, no dysarthria Discharge Data Allergies Allergy/AdvReac Type Severity Reaction Status Date / Time Penicillins Allergy Mild childhood Verified 12/21/18 11:17 reaction codeine AdvReac Mild NAUSEA, Verified 12/21/18 11:17 LIGHTHEADEDNESS simvastatin AdvReac Mild makes him Verified 12/21/18 11:17 feel like he is high Consultations 12/21/18 12:19 Consult Cardiology Routine 12/21/18 12:22 Consult Case Management - Discharge Planning Routine 12/22/18 16:52 Consult Nephrology Routine Hospital Course (1) Acute kidney injury superimposed on chronic kidney disease: Secondary to diuresis, leading to intravascular volume depletion, nonoliguric ATN Baseline CKD stage III, creatinine approximately 1.41.6 as per lab work on 11/2018 Patient was given 100 mg IV Lasix, creatinine worsening more than 2 Patient input from cardiology Patient appears to be compensated volume status Ordered to hold off diuretics BMP this morning shows improvement of creatinine 2.60-1.95 Avoid NSAIDs, nephrotoxins Patient will need to follow-up with nephrology as an outpatient CKD (2) Acute on chronic systolic (congestive) heart failure: Presented with decompensated CHF, volume overload, Responded well to diuresis Darzalex kept on hold as patient's creatinine was worsened, Improvement of renal function today, will be discharged home with outpatient diuretic regimen Torsemide 100 mg twice daily Continue Entresto Cardiology following, appreciate input Ischemic cardiomyopathy History of ischemic cardiomyopathy with biventricular heart failure, EF 30% Status post AICD placement Volume status remains stable Cardiology following, appreciate input Resume his prior outpatient medications No change of meds done Coronary artery disease No current symptoms of ischemia or acute coronaries symptom Continue outpatient meds (3) DMII (diabetes mellitus, type 2): Continue insulin sliding scale Patient insulin regimen resumed on discharge (4) SOB (shortness of breath): Presented to decompensated CHF, symptom has completely resolved No dyspnea on exertion, no orthopnea, ambulating independently without any symptom CODE STATUS: FULL CODE DVT prophylaxis: On Coumadin, INR therapeutic Disposition: Stable to be discharged home today Total Time Total Time Spent Total Time Spent (In Minutes): Approximately 40 minutes Total Time Includes: Examination of the Patient, Medication Reconciliation and Communication With Other Providers Discharge Plan Discharge Items Patient Disposition: Home - Self-Care Reason For Visit: ACUTE ON CHRONIC SYSTOLIC HEART FAILURE Discharge Diagnosis: ACUTE ON CHRONIC SYSTOLIC HEART FAILURE/RESOLVED ACUTE KIDNEY INJURY IN THE SETTING OF CKD STAGE 3 Activity: Resume your previous activity Non-emergency contact: Primary Care Provider Call non-emergency contact if: you have any medication questions Follow-up/Referrals: Harrison Vargas MD [Physician] - Ana Maria Gracia MD, PhD [Physician] - Delmer Gracia MD [Primary Care Provider] - Diet: Carb Consistent or DM2 and Heart Healthy Ambulatory Orders: Basic Metabolic Panel (Routine) Timeframe: 1 Week Location: Determined by Patient Ordered By: Yasmeen Soares Attending Provider Instructions: Need established follow-up with kidney specialist/fisher diver net for chronic kidney disease Do not take Advil Aleve, Motrin, ibuprofen, naproxen, and avoid NSAIDs which can cause worsening of your kidney function Please discuss with pharmacy when purchasing [id number] medication as some of them may continue combination of NSAID HOSPTIAL FOLLOW UP WITH FAMILY PHYSICIAN DR GRACIA IN A WEEK Call your Primary Care doctor if any of the following symptoms or problems start or get worse: * Shortness of breath or difficulty breathing * Wake up at night short of breath * Chest pain * Cough * Swelling of your hands, feet, or legs * More fatigued or tired with your normal activity * Palpitations - sudden fast heart beats WEIGHT * Weigh yourself every morning after using the bathroom. * Use the same scale. * Wear the same amount of clothing. * Write your weight down on a chart. * Call your Primary Care doctor if you gain more than 2-3 pounds in 1-2 days. MEDICATIONS * Use this discharge instruction sheet for medication instructions. * Take your medications at the time your doctor ordered. * Do not skip a dose of your medicines. * If you miss a dose of medicine, take it as soon as possible, but DO NOT DOUBLE A DOSE. * Read your medicine information when you get home. * Know all of the side effects of your medicine. If in doubt, ask your pharmacist * Call your Primary Care doctor's office if you have any side effects. * Be sure all of your doctors know what medicine and herbs you take (including cold, flu, and herbal medicine). Take the following with you to your follow-up doctor appointments: * Weight Chart * Medication List * List of questions Do not drink excessive alcohol, beer or wine. Pending Studies at Discharge: Yes Studies:: Basic metabolic panel in 1 week Stand-Alone Forms: [facility] Medications and DC Order Prescriptions: Continued torsemide 100 mg tablet 100 mg PO BID RF: 0 OneTouch Ultra Blue Test Strip strip .ROUTE .MEDSUPPLY Qty: 10 RF: 0 lancets [OneTouch SureSoft Lancing Dev] 28 gauge misc .ROUTE .MEDSUPPLY Qty: 25 RF: 0 warfarin 5 mg Tablet 2.5 mg PO 6XWK RF: 0 allopurinol 300 mg tablet 300 mg PO QAM RF: 0 atorvastatin 40 mg Tablet 40 mg PO QPM RF: 0 aspirin 81 mg Tablet,Delayed Release (Dr/Ec) 81 mg PO QAM RF: 0 warfarin 5 mg Tablet 5 mg PO WK RF: 0 potassium chloride 10 mEq tablet extended release 10 meq PO DAILY PRNRF: 0 metoprolol succinate 100 mg tablet extended release 24 hr 200 mg PO DAILY RF: 0 venlafaxine 150 mg tablet extended release 24hr 150 mg PO QAM RF: 0 digoxin 125 mcg Tablet 125 mcg PO Q OTHER DAY RF: 0 Lantus Solostar U-100 Insulin 100 unit/mL (3 mL) insulin pen 45 units subcut QAM RF: 0 allopurinol 100 mg Tablet 100 mg PO QAM RF: 0 Novolog Flexpen U-100 Insulin 100 unit/mL (3 mL) insulin pen SQ TIDM RF: 0 Entresto 97-103 mg tablet 2 tab PO BID RF: 0 Discharge Orders: Discharge Order (Routine); Ordered 12/23/18 Ordered By: Yasmeen Gupta Admission Data Admit Date/Time: 12/21/18 12:21 Attending Provider: Yasmeen Gupta Admit Provider: Kenney Mcdonnell Primary Care Provider: Delmer Gracia Other Providers: Harrison Vargas ; Arjun Horvath ; Ana Maria Gracia ; Mark Rao Elissa R. ; Daisha Leon ; Tenzin Mandel Other Interventions: Discharge Summary Assessment (RN) Last Done: 12/23/18 12:03 DC Date/Time DO NOT enter until pt leaves facility: 12/23/18 13:30
== END 2018-12-23 13:30 | disposition home or self-care (01) | DRG 682 ==
LOC: 2S 12:21 → SUATTDRO 12:21

== ENCOUNTER 2019-02-27 14:51 | Inpatient (IN) ==
[2019-02-27] MEDS ORDERED: NITROGLYCERIN 2% OINTMENT 30GM TUBE EXT STA (15:04)
[2019-02-27] MEDS ORDERED: ONDANSETRON INJ 2 MG/ML 2 ML VIAL IV STA (15:04)
--- NOTE | 2019-02-27 15:28 | XRay Report ---
XR chest 1V portable CLINICAL HISTORY: 68 years-old Male presenting with Chest Pain. TECHNIQUE: Portable upright AP view of the chest was obtained. COMPARISON: 02/06/2019 and CTA chest from 08/06/2017. FINDINGS: Left subclavian implanted cardiac defibrillator with single lead to the right ventricular apex. Ather osclerosis of the aortic arch. Marked enlargement of the cardiopericardial silhouette. Pulmonary vasc ulature is not significantly prominent. Minimal left basilar opacity likely in part due to the cardia c silhouette. Trace left pleural effusion not excluded. No other focal opacity. No large pneumothorax .Osseous structures normal. IMPRESSION: 1. Marked enlargement of the cardiopericardial silhouette. This may indicate underlying pericardial effusion and/or cardiomegaly. 2. No significant volume overload or congestive change. 3. Possible left basilar atelectasis and/or trace left pleural effusion. 4. No significant change from prior. Electronically signed by: Kunal Davenport M.D. 02/27/2019 3:26 PM
[2019-02-27 16:03] LABS: Basophils # (auto) 0.01 K/uL (0-0.2); Basophils % (auto) 0.1 %; Eosinophils # (auto) 0.06 K/uL (0-0.5); Eosinophils % (auto) 0.7 %; Hematocrit (blood only) 42.2 % (42-52); Hemoglobin 14.2 g/dL (14.0-18.0); Immature Granulocytes # (auto) 0.01 K/uL (0.00-0.02); Immature Granulocytes % (auto) 0.1 %; Lymphocytes # (auto) 0.64 K/uL (1.2-3.4); Lymphocytes % (auto) 7.4 %; Mean Corpuscular Hemoglobin 32.6 pg (25-34); Mean Corpuscular Hgb Conc 33.6 g/dL (32-36); Mean Corpuscular Volume 96.8 fL (80-100); Mean Platelet Volume 9.8 fL (7.4-10.4); Monocytes # (auto) 0.76 K/uL (0.11-0.59); Monocytes % (auto) 8.8 %; Neutrophils # (auto) 7.19 K/uL (1.4-6.5); Neutrophils % (auto) 82.9 %; Platelet Count 165 K/uL (130-400); RDW Coefficient of Variation 14.9 % (11.5-14.5); RDW Standard Deviation 52.5 fL (36.4-46.3); Red Blood Count 4.36 M/uL (4.7-6.1); White Blood Count 8.67 K/uL (4.8-10.8)
[2019-02-27 16:14] LABS: INR 2.7 (0.9-1.1); Partial Thromboplastin Ratio 1.2; Partial Thromboplastin Time 31.3 Seconds (21.0-31.0); Prothrombin Time 26.1 Seconds (9.0-12.0)
[2019-02-27 16:21] LABS: Albumin Level 3.9 gm/dl (3.4-5.0); BUN Creatinine Ratio 45.2 (10-20); Calcium 9.6 mg/dl (8.5-10.1); Creatinine Clr Calc Pharmacy 50.4 ml/min; Est GFR (Non-African American) 40.5; Magnesium 1.8 mg/dl (1.8-2.4); Potassium 3.2 mmol/L (3.5-5.1)
[2019-02-27 16:31] LABS: Albumin Globulin Ratio 1.1 (0.9-2); Bilirubin,Total 0.6 mg/dl (0.2-1); Globulin 3.7 gm/dl (2.5-4.0); Total Protein 7.6 gm/dl (6.4-8.2); Troponin I 0.107 ng/ml (0-0.045)
[2019-02-27] MEDS ORDERED: METOPROLOL TARTRATE 1 MG/ML VIAL IV STA (16:36)
--- NOTE | 2019-02-27 17:01 | Emergency Department Note ---
Entered by Carl Chavez acting as a scribe for History of Present Illness General Chief complaint: Chest Pain Time Seen by Provider: 02/27/19 14:55 Source: patient History of Present Illness Provider complaint: Chest pain Onset (ago): hour(s) (This afternoon) Location: chest and left Pain Consistency: + now resolved Current Pain Intensity: 8 Quality: + sharp Associated symptoms: + diaphoresis, + nausea/vomiting and + shortness of breath The patient is a 68 year old male who presents to the Emergency Room with complaints of sharp left sided chest pain that occurred earlier this afternoon. The patient reports that he was walking out of [employer] when the episode occurred and the pain lasted for about 3-4 seconds. He adds that prior to the episode he felt fine. The patient rates the pain as an 8/10 but notes it is no longer present. The patient adds that during the episode he became short of breath and diaphoretic. He also became nauseous, which was present up to his arr ival at the ED. The patient called 911 when his symptoms first began and received 4 baby Aspirin and 1 Nitro en route. The patient denies any recent chest pain or similar episodes to today's as well as any exertional symptoms. The patient does have a cardiac history of an MS and Afib. He also has [address] Home Medications Home Medications Medication Instructions Recorded Confirmed Type aspirin 81 mg PO QAM 01/25/18 02/27/19 History atorvastatin 40 mg PO QPM 01/25/18 02/27/19 History warfarin 2.5 mg PO QAM 02/17/18 02/27/19 History digoxin 125 mcg PO Q2D 05/10/18 02/27/19 History allopurinol 100 mg PO QAM 09/11/18 02/27/19 History allopurinol 300 mg PO QAM 09/26/18 02/27/19 History insulin glargine 100 unit/mL (3 45 units SUBCUT QAM ml 12/17/18 02/27/19 History mL) subcutaneous pen acetaminophen [Tylenol Extra 1,000 mg PO Q6H PRN 01/21/19 02/27/19 History Strength] metoprolol succinate 100 mg PO BID 01/21/19 02/27/19 History nitroglycerin 0.4 mg SUBLINGUAL UD PRN 01/21/19 02/27/19 History venlafaxine 150 mg PO BID 01/21/19 02/27/19 History bumetanide 2 mg tablet 2 mg PO .DAILY@LUNCH 01/30/19 02/27/19 History insulin aspart U-100 100 unit/mL 6 units SQ ACHS ml 01/30/19 02/27/19 History (3 mL) subcutaneous pen meclizine 12.5 mg tablet 12.5 mg PO TID PRN 01/30/19 02/27/19 History sacubitril 97 mg-valsartan 103 mg 1 tab PO BID 90 Days #180 tab 01/30/19 1 04/30/18 Rx tablet bumetanide 4 mg PO QAM 02/27/19 02/27/19 History potassium chloride 10 meq PO BID 02/27/19 02/27/19 History Allergies Allergy/AdvReac Type Severity Reaction Status Date / Time Penicillins Allergy Mild childhood Verified 02/18/19 04:06 reaction codeine AdvReac Mild NAUSEA, Verified 02/18/19 04:06 LIGHTHEADEDNESS simvastatin AdvReac Mild makes him Verified 02/18/19 04:06 feel like he is high Past Med/Surg History Medical History Acute kidney injury superimposed on chronic kidney disease Anxiety (Inactive) Atrial fibrillation, chronic (Chronic) CAD (coronary artery disease) (Chronic) stenting to LAD in 1994 and 1996 stenting to RCA and LAD in 2007 Congestive heart failure (Resolved) Depression with anxiety (Chronic) Diabetes mellitus type II, controlled (Chronic) Diabetic neuropathy (Chronic) DMII (diabetes mellitus, type 2) Dyslipidemia (Chronic) Gout HTN (hypertension) (Chronic) Ischemic dilated cardiomyopathy (Inactive) intermediate current use of anticoagulant (Chronic) warfarin daily Myocardial Infarction (Resolved) 1989. CARDIAC CATH WITH 2 STENTS ANTOINETTE on CPAP (Chronic) Systolic and diastolic CHF, chronic (Chronic) Surgical History AICD (automatic cardioverter/defibrillator) present (Chronic) placed on 10/24/17 [employer] DEVICE. LAST CHECKED [address] DOMINGUEZ[facility]. PLACED IN OCTOBER 2017 AT [facility] History of bowel resection (Resolved) MASSIVE POLPYS History of cardiac cath (Inactive) 1989 --> X2 STENTS. BARE METAL STENTS ~1993 --> X2 STENTS. DRUG ELUTING STENTS. 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 and A total of 10 systems reviewed and were otherwise negative Physical Exam Vital Signs Vital Signs - 24 hr 02/27/19 14:58 02/27/19 15:00 02/27/19 15:16 Temperature 36.8 C Temperature Source Oral Pulse Rate 108 H 90 101 H Pulse Rate [Finger] 108 H Pulse Rate from SpO2 Sensor 108 H 99 H Respiratory Rate 12 21 19 Blood Pressure 108/61 108/61 Blood Pressure [Right Arm] 108/61 Blood Pressure Mean 76 78 Blood Pressure Mean [Right Arm] 76 Pulse Oximetry 89 L Oxygen Delivery Method Room Air Nasal Cannula Nasal Cannula Oxygen Flow Rate 2 2 Sepsis Recent Fever Within 48 Hours No Sepsis New/Unexplained Change in Mental Status No Sepsis Action Taken by Nursing No Action Required 02/27/19 15:20 02/27/19 15:30 02/27/19 15:31 Temperature Temperature Source Pulse Rate 91 H 88 96 H Pulse Rate [Finger] Pulse Rate from SpO2 Sensor 89 Respiratory Rate 19 19 18 Blood Pressure 127/78 Blood Pressure [Right Arm] Blood Pressure Mean 90 Blood Pressure Mean [Right Arm] Pulse Oximetry Oxygen Delivery Method Nasal Cannula Nasal Cannula Nasal Cannula Oxygen Flow Rate 2 2 2 Sepsis Recent Fever Within 48 Hours Sepsis New/Unexplained Change in Mental Status Sepsis Action Taken by Nursing 02/27/19 15:40 02/27/19 15:50 02/27/19 16:00 Temperature Temperature Source Pulse Rate 94 H 96 H 91 H Pulse Rate [Finger] Pulse Rate from SpO2 Sensor Respiratory Rate 19 24 19 Blood Pressure 122/84 Blood Pressure [Right Arm] Blood Pressure Mean 99 Blood Pressure Mean [Right Arm] Pulse Oximetry Oxygen Delivery Method Nasal Cannula Nasal Cannula Nasal Cannula Oxygen Flow Rate 2 2 2 Sepsis Recent Fever Within 48 Hours Sepsis New/Unexplained Change in Mental Status Sepsis Action Taken by Nursing 02/27/19 16:01 02/27/19 16:10 02/27/19 16:20 Temperature Temperature Source Pulse Rate 99 H 88 100 H Pulse Rate [Finger] Pulse Rate from SpO2 Sensor Respiratory Rate 19 19 18 Blood Pressure Blood Pressure [Right Arm] Blood Pressure Mean Blood Pressure Mean [Right Arm] Pulse Oximetry Oxygen Delivery Method Nasal Cannula Nasal Cannula Nasal Cannula Oxygen Flow Rate 2 2 2 Sepsis Recent Fever Within 48 Hours Sepsis New/Unexplained Change in Mental Status Sepsis Action Taken by Nursing 02/27/19 17:05 02/27/19 17:08 Temperature Temperature Source Pulse Rate 101 H Pulse Rate [Finger] 102 H Pulse Rate from SpO2 Sensor Respiratory Rate 18 Blood Pressure 150/72 H Blood Pressure [Right Arm] Blood Pressure Mean Blood Pressure Mean [Right Arm] Pulse Oximetry Oxygen Delivery Method Room Air Oxygen Flow Rate Sepsis Recent Fever Within 48 Hours Sepsis New/Unexplained Change in Mental Status Sepsis Action Taken by Nursing GENERAL: Patient is in no acute distress. HEENT: No acute trauma, normocephalic atraumatic, mucous membranes moist, no nasal congestion, no scleral icterus. NECK: No stridor, no adenopathy, no meningismus, trachea is midline. LUNGS: Clear to auscultation bilaterally, no wheeze, no rhonchi, breath sounds equal. HEART: Mildly tachycardic and irregular. Subtle systolic murmur. ABDOMEN: Soft, nontender, bowel sounds positive, no hernias, no peritonitis. EXTREMITIES: No cyanosis, full range of motion of all the joints without pain or difficulty, no signs for acute trauma. Moderate bilateral pedal edema with chronic skin changes. NEUROLOGIC: Oriented x 3, no acute motor or sensory deficits, no focal weakness. SKIN: No rash, no jaundice, no diaphoresis. Course Course 1458: Past medical records reviewed. The patient was evaluated in room A12A, and a complete history and physical examination were performed. 1640: I discussed the patient's case with Mikala NORMAN who is working under Dr. Yuliet Ocampo Hospitalist. They have agreed to accept the patient for further evaluation. 1652: I reevaluated the patient and updated him on results. We also discussed the treatment plan and he is agreeable with the plan. Consultations Consultation #1: I discussed the patient's case with Mikala NORMAN who is working under Dr. Yuliet Ocampo Hospitalist. They have agreed to accept the patient for further evaluation. Time: 16:40 Administered Medications Discontinued Medications Metoprolol Tartrate (Lopressor) 5 mg IV NOW STA Stop: 02/27/19 16:37 Last Admin: 02/27/19 17:05 Dose: 5 mg Documented by: [id number] Nitroglycerin (Nitro-Bid 2%) 0.5 inch EXT NOW STA Stop: 02/27/19 15:05 Last Admin: 02/27/19 15:44 Dose: 0.5 inch Documented by: [id number] Ondansetron HCl (Zofran) 4 mg IV NOW STA Stop: 02/27/19 15:05 Last Admin: 02/27/19 15:44 Dose: 4 mg Documented by: [id number] Critical Care Time Critical Care Time: Yes Total Critical Care Time: 34 I have personally spent greater than 34 minutes of critical care time in the direct management of this patient. This includes bedside care, interpretation of diagnostic studies, and testing, discussion with consultants, patient, and family members, and other required patient management activities. This 34 min utes is in excess of all separately billable procedures. Medical Decision Making Differential Diagnosis Differential Diagnosis includes: MS, pneumonia, CHF, anemia, electrolyte imbalance, PE, and aortic dissection, amongst others. Medical Records Attestation: I reviewed the patient's medical records. Home Medications Current Medication List: was personally reviewed by me Laboratory Data Attestation: I reviewed the patient's lab results. Result diagrams: 02/27/19 15:54 02/27/19 15:54 Lab Results 02/27/19 02/27/19 02/27/19 Range/Units 15:54 15:54 15:54 WBC 8.67 (4.8-10.8) K/uL RBC 4.36 L (4.7-6.1) M/uL Hgb 14.2 (14.0-18.0) g/dL Hct 42.2 (42-52) % MCV 96.8 (80-100) fL MCH 32.6 (25-34) pg MCHC 33.6 (32-36) g/dL RDW Std Deviation 52.5 H (36.4-46.3) fL RDW Coeff of Joe 14.9 H (11.5-14.5) % Plt Count 165 (130-400) K/uL MPV 9.8 (7.4-10.4) fL Immature Gran % (Auto) 0.1 % Neut % (Auto) 82.9 % Lymph % (Auto) 7.4 % Arroyo % (Auto) 8.8 % Eos % (Auto) 0.7 % Baso % (Auto) 0.1 % Immature Gran # (Auto) 0.01 (0.00-0.02) K/uL Neut # (Auto) 7.19 H (1.4-6.5) K/uL Lymph # (Auto) 0.64 L (1.2-3.4) K/uL Arroyo # (Auto) 0.76 H (0.11-0.59) K/uL Eos # (Auto) 0.06 (0-0.5) K/uL Baso # (Auto) 0.01 (0-0.2) K/uL PT (9.0-12.0) Seconds INR (0.9-1.1) APTT (21.0-31.0) Seconds PTT Ratio Sodium 133 L (136-145) mmol/L Potassium 3.2 L (3.5-5.1) mmol/L Chloride 94 L (98-107) mmol/L Carbon Dioxide 29 (21-32) mmol/L Anion Gap 9.0 (3-11) BUN 77 H (7-18) mg/dl Creatinine 1.70 H (0.6-1.4) mg/dl Est Cr Clr Drug Dosing 50.4 ml/min Est GFR ( Amer) 47.0 Est GFR (Non-Af Amer) 40.5 BUN/Creatinine Ratio 45.2 H (10-20) Glucose 105 H (70-99) mg/dl Calcium 9.6 (8.5-10.1) mg/dl Magnesium 1.8 (1.8-2.4) mg/dl Total Bilirubin 0.6 (0.2-1) mg/dl AST 15 (15-37) U/L ALT 15 (12-78) U/L Alkaline Phosphatase 88 (45-117) U/L Troponin I 0.107 H* (0-0.045) ng/ml Total Protein 7.6 (6.4-8.2) gm/dl Albumin 3.9 (3.4-5.0) gm/dl Globulin 3.7 (2.5-4.0) gm/dl Albumin/Globulin Ratio 1.1 (0.9-2) Lipase 142 (73-393) U/L Digoxin 0.5 L (0.8-2.0) ng/ml 02/27/19 Range/Units 15:54 WBC (4.8-10.8) K/uL RBC (4.7-6.1) M/uL Hgb (14.0-18.0) g/dL Hct (42-52) % MCV (80-100) fL MCH (25-34) pg MCHC (32-36) g/dL RDW Std Deviation (36.4-46.3) fL RDW Coeff of Joe (11.5-14.5) % Plt Count (130-400) K/uL MPV (7.4-10.4) fL Immature Gran % (Auto) % Neut % (Auto) % Lymph % (Auto) % Arroyo % (Auto) % Eos % (Auto) % Baso % (Auto) % Immature Gran # (Auto) (0.00-0.02) K/uL Neut # (Auto) (1.4-6.5) K/uL Lymph # (Auto) (1.2-3.4) K/uL Arroyo # (Auto) (0.11-0.59) K/uL Eos # (Auto) (0-0.5) K/uL Baso # (Auto) (0-0.2) K/uL PT 26.1 H (9.0-12.0) Seconds INR 2.7 H (0.9-1.1) APTT 31.3 H (21.0-31.0) Seconds PTT Ratio 1.2 Sodium (136-145) mmol/L Potassium (3.5-5.1) mmol/L Chloride (98-107) mmol/L Carbon Dioxide (21-32) mmol/L Anion Gap (3-11) BUN (7-18) mg/dl Creatinine (0.6-1.4) mg/dl Est Cr Clr Drug Dosing ml/min Est GFR ( Amer) Est GFR (Non-Af Amer) BUN/Creatinine Ratio (10-20) Glucose (70-99) mg/dl Calcium (8.5-10.1) mg/dl Magnesium (1.8-2.4) mg/dl Total Bilirubin (0.2-1) mg/dl AST (15-37) U/L ALT (12-78) U/L Alkaline Phosphatase (45-117) U/L Troponin I (0-0.045) ng/ml Total Protein (6.4-8.2) gm/dl Albumin (3.4-5.0) gm/dl Globulin (2.5-4.0) gm/dl Albumin/Globulin Ratio (0.9-2) Lipase (73-393) U/L Digoxin (0.8-2.0) ng/ml Imaging Data Radiologist's Impression: Radiology results as stated below per my review and the radiologist's interpretation: XR chest 1V portable CLINICAL HISTORY: 68 years-old Male presenting with Chest Pain. TECHNIQUE: Portable upright AP view of the chest was obtained. COMPARISON: 02/06/2019 and CTA chest from 08/06/2017. FINDINGS: Left subclavian implanted cardiac defibrillator with single lead to the right ventricular apex. Atherosclerosis of the aortic arch. Marked enlargement of the cardiopericardial silhouette. Pulmonary vasculature is not significantly prominent. Minimal left basilar opacity likely in part due to the cardiac silhouette. Trace left pleural effusion not excluded. No other focal opacity. No large pneumothorax.Osseous structures normal. IMPRESSION: 1. Marked enlargement of the cardiopericardial silhouette. This may indicate underlying pericardial effusion and/or cardiomegaly. 2. No significant volume overload or congestive change. 3. Possible left basilar atelectasis and/or trace left pleural effusion. 4. No significant change from prior. Electronically signed by: Kunal Davenport M.D. 02/27/2019 3:26 PM ECG Data Attestation: I personally reviewed and interpreted this ECG as follows: Indication: + chest pain Rate (beats per minute): 100 Rhythm: + atrial fibrillation ECG Intervals/blocks: + Normal QT-c (420) ECG ST segments: + Nonspecific ST abnormalities (Diffuse); no ST elevation ECG Findings: + PVCs and + Other (Old septal infarct) Comparison ECG Date: from (02/06/19) Change: the following changes noted (Rate has increased. PVC is now present. ) Blood Pressure Blood Pressure Findings: Elevated blood pressure Blood Pressure Disposition: further management by hospitalist MDM Narrative There is no leukocytosis or concerning anemia. INR is elevated at 2.7, this is consistent with his Coumadin use. There is an elevation to the creatinine, this is baseline for the patient. There was no liver enzyme elevation. Lipase was normal. Digoxin was mildly elevated at 0.5. EKG showed A. fib with PVCs. There was some nonspecific ST change. Cardiac enzyme testing x1 does show a troponin elevation, this elevation is consistent with cardiac injury or strain. Chest film shows cardiomegaly with some chronic lung change. No focal pneumonia , no worrisome CHF. Patient was given Nitropaste, IV Zofran. No additional aspirin was given as he had received aspirin prior to arrival. He was given 5 mg of IV Lopressor to slow the heart rate. Given the patient's description of his symptoms, given his history, given the troponin elevation, a hospitalization is warranted. I spoke to the patient and case management. Further cardiac work-up is warranted. The on-call hospitalist was consulted. Impression & Plan Precordial chest pain, Shortness of breath, Cardiomegaly, Elevated troponin, Atrial fibrillation, rapid Discharge Plan Visit Data Chief Complaint: Chest Pain ED Provider: Josue Olivas Discharge Problem: Precordial chest pain, Shortness of breath, Cardiomegaly, Elevated troponin, Atrial fibrillation, rapid Patient Disposition: Being Evaluated by Hospitalist Forms Stand Alone Forms: Call Back Authorization, [facility] Prescriptions Prescriptions: No Action meclizine 12.5 mg tablet 12.5 mg PO TID PRN (Reason: Dizziness Or Vertigo) RF: 0 Entresto 97-103 mg tablet 1 tab PO BID 90 Days Qty: 180 RF: 2 warfarin 5 mg Tablet 2.5 mg PO QAM RF: 0 allopurinol 300 mg tablet 300 mg PO QAM RF: 0 atorvastatin 40 mg Tablet 40 mg PO QPM RF: 0 aspirin 81 mg Tablet,Delayed Release (Dr/Ec) 81 mg PO QAM RF: 0 digoxin 125 mcg Tablet 125 mcg PO Q2D RF: 0 Lantus Solostar U-100 Insulin 100 unit/mL (3 mL) insulin pen 45 units subcut QAM RF: 0 allopurinol 100 mg Tablet 100 mg PO QAM RF: 0 Novolog Flexpen U-100 Insulin 100 unit/mL (3 mL) insulin pen 6 units SQ ACHS RF: 0 venlafaxine 150 mg capsule,extended release 24hr 150 mg PO BID RF: 0 acetaminophen [Tylenol Extra Strength] 500 mg Tablet 1,000 mg PO Q6H PRN (Reason: Pain) RF: 0 nitroglycerin 0.4 mg tablet, sublingual 0.4 mg sublingual UD PRN (Reason: Chest Pain) RF: 0 metoprolol succinate 100 mg tablet extended release 24 hr 100 mg PO BID RF: 0 bumetanide 2 mg tablet 2 mg PO .DAILY@LUNCH RF: 0 bumetanide 2 mg Tablet 4 mg PO QAM RF: 0 potassium chloride 10 mEq tablet extended release 10 meq PO BID RF: 0 Referrals Referrals: Delmer Gracia MD [Primary Care Provider] - The scribe's documentation has been prepared under my direction and personally reviewed by me in its entirety. I confirm that the note above accurately reflects all work, treatment, procedures, and medical decision making performed by me.
[2019-02-27] MEDS ORDERED: POTASSIUM CHLORIDE 20 MEQ TABCR PO STA (17:48)
[2019-02-27] MEDS ORDERED: ACETAMINOPHEN 500 MG TAB PO PRN (17:49)
[2019-02-27] MEDS ORDERED: MECLIZINE 12.5 MG TAB PO PRN (17:49)
--- NOTE | 2019-02-27 17:57 | History & Physical Report ---
Date of Service February 27, 2019 Assessment & Plan (1) Elevated troponin: (2) Precordial chest pain: This is a 68-year-old male with a PMH chronic systolic heart failure secondary to ischemic cardiomyopathy, history of AICD placement, CAD (h/o 4 stents), atrial fibrillation on Coumadin, valvular disease (MR, TR, AR), DM II and other medical problems below who presents with chest pain beginning this afternoon. -Left sided chest pain with associated SOB, nausea and vomiting, h/o CAD -Received 4 baby aspirin and nitro in route to the hospital and symptoms resolved by time of arrival -EKG with A Fib, PVCs and non-specific ST changes. Initial troponin mildly elevated at 0.107, indicating strain -CXR with marked enlargement of the cardiopericardial silhouette that may indicate underlying pericardial effusion and/or cardiomegaly -Therapeutic on coumadin with INR of 2.7. Will hold coumadin for now and reassess INR in AM. Plan to add low dose heparin when INR <2 in case of need for cardiac cath -Follows with Dr. Vargas of [facility] cardiology. Routine consult placed (3) Hypokalemia: Initial potassium of 3.2. Given 40mEq KCl, continue home supplement (4) Atrial fibrillation, chronic: A fib with HR 95-100 upon arrival -Given IV Lopressor x 1. Continue home beta-leticia dose -Monitor on telemetry -Therapeutic on anticoagulation (5) Systolic and diastolic CHF, chronic: Appears euvolemic on exam. Has been taking diuretics regularly, reports being down 9 pounds from baseline -Continue Bumex, metolazone, Toprol, Entresto (6) Diabetes mellitus type II, controlled: -Hold home agents -Basal/bolus insulin while inpatient -[facility] (7) HTN (hypertension): Normotensive. Continue Toprol (8) CKD (chronic kidney disease): Kidney function at baseline with Cr ~1.7. Follows with Dr. Gracia -Monitor with daily BMP (9) Dyslipidemia: Continue statin (10) Depression with anxiety: Continue venlafaxine (11) ANTOINETTE on CPAP: CPAP at bedtime (12) AICD (automatic cardioverter/defibrillator) present: DVT Ppx: Therapeutic on coumadin Code status: FULL PCP: Basil Dispo: Admitted to PCU Patient seen in collaboration with Dr. Renteria. Please see addendum. History of Present Illness Chief Complaint: Chest pain Primary Care Provider: Delmer Gracia MD This is a 68-year-old male with a H chronic systolic heart failure secondary to ischemic cardiomyopathy, history of AICD placement, CAD (h/o 4 stents), atrial fibrillation on Coumadin, valvular disease (MR, TR, AR), DM II and other medical problems below who presents with chest pain beginning this afternoon. Patient was reportedly in normal state of health and had been shopping at [employer] but when leaving the store in the parking lot, developed sudden onset left- sided chest pain with associated shortness of breath, nausea and multiple bouts of vomiting. Chest pain only lasted a few seconds but continued to feel nauseated and diaphoretic. Called for help and EMS came to the scene. Patient received 4 baby aspirin and nitro in route to the hospital felt back to baseline by time of arrival. In ED, patient was found to be afebrile, normotensive mildly tachycardic at 95- 100. Has been chest pain free since arrival. EKG with A Fib, PVCs and non- specific ST changes. INR is therapeutic on coumadin at 2.7. Creatinine is at baseline ~1.7. Initial troponin mildly elevated at 0.107. CXR with marked enlargement of the cardiopericardial silhouette that may indicate underlying pericardial effusion and/or cardiomegaly. Follows with Dr. Vargas of [facility] cardiology. Reports taking all medications including diuretics and is down 9 pounds. Allergies Allergy/AdvReac Type Severity Reaction Status Date / Time Penicillins Allergy Mild childhood Verified 02/18/19 04:06 reaction codeine AdvReac Mild NAUSEA, Verified 02/18/19 04:06 LIGHTHEADEDNESS simvastatin AdvReac Mild makes him Verified 02/18/19 04:06 feel like he is high Home Medications Home Medications Medication Instructions Recorded Confirmed Type aspirin 81 mg PO QAM 01/25/18 02/27/19 History atorvastatin 40 mg PO QPM 01/25/18 02/27/19 History warfarin 2.5 mg PO QAM 02/17/18 02/27/19 History digoxin 125 mcg PO Q2D 05/10/18 02/27/19 History allopurinol 100 mg PO QAM 09/11/18 02/27/19 History allopurinol 300 mg PO QAM 09/26/18 02/27/19 History insulin glargine 100 unit/mL (3 45 units SUBCUT QAM ml 12/17/18 02/27/19 History mL) subcutaneous pen acetaminophen [Tylenol Extra 1,000 mg PO Q6H PRN 01/21/19 02/27/19 History Strength] metoprolol succinate 100 mg PO BID 01/21/19 02/27/19 History nitroglycerin 0.4 mg SUBLINGUAL UD PRN 01/21/19 02/27/19 History venlafaxine 150 mg PO BID 01/21/19 02/27/19 History bumetanide 2 mg tablet 2 mg PO .DAILY@LUNCH 01/30/19 02/27/19 History insulin aspart U-100 100 unit/mL 6 units SQ ACHS ml 01/30/19 02/27/19 History (3 mL) subcutaneous pen meclizine 12.5 mg tablet 12.5 mg PO TID PRN 01/30/19 02/27/19 History sacubitril 97 mg-valsartan 103 mg 1 tab PO BID 90 Days #180 tab 01/30/19 02/27/19 Rx tablet bumetanide 4 mg PO QAM 02/27/19 02/27/19 History potassium chloride 10 meq PO BID 02/27/19 02/27/19 History Past Med/Surg History Medical History (Updated 02/27/19 @ 19:34 by Mikala Conley PA-C) Anxiety (Inactive) Atrial fibrillation, chronic (Chronic) CAD (coronary artery disease) (Chronic) stenting to LAD in 1994 and 1996 stenting to RCA and LAD in 2007 CKD (chronic kidney disease) Congestive heart failure (Resolved) Depression with anxiety (Chronic) Diabetes mellitus type II, controlled (Chronic) Diabetic neuropathy (Chronic) Dyslipidemia (Chronic) Gout HTN (hypertension) (Chronic) Hypokalemia 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 CARDIAC CATH WITH 2 STENTS ANTOINETTE on CPAP (Chronic) Systolic and diastolic CHF, chronic (Chronic) Surgical History AICD (automatic cardioverter/defibrillator) present (Chronic) placed on 10/24/17 [employer]. LAST CHECKED [address] DOMINGUEZ/[facility]. PLACED IN OCTOBER 2017 AT [facility] History of bowel resection (Resolved) MASSIVE POLPYS History of cardiac cath (Inactive) 1989 --> X2 STENTS. BARE METAL STENTS ~1992 --> X2 STENTS. DRUG ELUTING STENTS. History of cataract surgery (Resolved) BILATERAL History of colonoscopy (Inactive) History of heart artery stent (Resolved) History of partial colectomy (Resolved) "[facility]/ ilieorectal anast/ multiple polyps 2008" Stented coronary artery (Inactive) "stents x 4 to RCA and LAD 1997" Family History Mother Coronary heart disease Diabetes Father Lung cancer Sister Diabetes Social History Preferred Language: Latvian Communication Ability: Effective Batch Or Continuous Still Operator Required: No Beliefs That Will Affect Care: None marital status: Current Living Situation: Spouse Other Information That Helps Us Care for You: No Feels Safe at Home: Yes Safety Concerns: Feels Safe At This Time Smoking Status: Unknown if ever smoked Hx Alcohol Use: No Hx Substance Use: No Review of Systems Review of Systems: At least ten systems reviewed and negative except as noted in the HPI. Physical Exam Physical Exam: General Appearance: WD/WN, vitals as above, NAD, sitting up in bed, obese, conversing easily Head: normocephalic, atraumatic Eyes: normal inspection, PERRL, conjunctivae normal, anicteric sclerae ENT: external ear and nose normal, oropharynx normal Neck: trachea midline, no thyromegaly normal visual inspection Respiratory: normal respiratory effort, lungs clear to auscultation, no wheeze, rales, rhonchi. Normal insp/exp effort, no accessory muscle use Cardiovascular: regular rate, rhythm, systolic ejection murmur, normal peripheral pulses, trace BLE edema. Vessels: no JVD or carotid bruit Chest: normal inspection of chest Abdomen/GI: normal bowel sounds, soft, nontender, no hepatosplenomegaly Extremities/Musculoskelatal: no cyanosis or clubbing, extremities motor strength 5/5. BLE with chronic skin changes Neurologic: PERRL, EOMI, accommodation nl, no face palsy, no dysarthria, CN's II-XI intact bilaterally and moves all extremities Psychiatric: A+Ox3, euthymic affect Skin: no rashes, normal color, warm/dry Results & Data Vital Signs (Past 12 Hours) Vital Signs Temp Pulse Pulse Resp BP BP Pulse Ox 02/27/19 17:08 102 H 18 02/27/19 17:05 101 H 150/72 H 02/27/19 16:20 100 H 18 02/27/19 16:10 88 19 02/27/19 16:01 99 H 19 02/27/19 16:00 91 H 19 122/84 02/27/19 15:50 96 H 24 02/27/19 15:40 94 H 19 02/27/19 15:31 96 H 18 02/27/19 15:30 88 19 127/78 02/27/19 15:20 91 H 19 02/27/19 15:16 101 H 19 02/27/19 15:00 90 21 108/61 02/27/19 14:58 36.8 C 108 H 108 H 12 108 108/61 89 L Laboratory Results Short CBC 02/27/19 Range/Units 15:54 WBC 8.67 (4.8-10.8) K/uL Hgb 14.2 (14.0-18.0) g/dL Hct 42.2 (42-52) % Plt Count 165 (130-400) K/uL BMP 02/27/19 15:54 Sodium 133 L Potassium 3.2 L Chloride 94 L Carbon Dioxide 29 BUN 77 H Creatinine 1.70 H Glucose 105 H Calcium 9.6 Cardiac Enzymes 02/27/19 Range/Units 15:54 Troponin I 0.107 H* (0-0.045) ng/ml Liver Function 02/27/19 Range/Units 15:54 Total Bilirubin 0.6 (0.2-1) mg/dl AST 15 (15-37) U/L ALT 15 (12-78) U/L Alkaline Phosphatase 88 (45-117) U/L Albumin 3.9 (3.4-5.0) gm/dl Diagnostic Findings CXR: IMPRESSION: 1. Marked enlargement of the cardiopericardial silhouette. This may indicate underlying pericardial effusion and/or cardiomegaly. 2. No significant volume overload or congestive change. 3. Possible left basilar atelectasis and/or trace left pleural effusion. 4. No significant change from prior. ECG Rhythm: atrial fibrillation Findings: + nonspecific-ST abn and + PVC Code Status & VTE Plan VTE Prophylaxis Plan VTE Prophylaxis will be ordered: Yes Supervising Physician Co-Signing Physician Notes I saw this patient with the physician assistant baseball coach, I participated in the history, physical, review of systems, and physical exam. I reviewed the medications with the patient and the physician assistant baseball coach and helped reconcile the medications. I helped take a detailed family and social history as well. I formulated the assessment and plan personally with the physician assistant baseball coach and went over it with the patient. ROS-No Headache, No Visual Changes, No Nausea, No Vomiting, No Fever, No Chills, No Neck Pain or Stiffness, No Chest Pain, No Palpitations, No SOB, No EASLEY, No Cough, No Sputum, No Wheezing, No Abdominal Pain, No Diarrhea, No Hematemesis, No Hemoptysis, No Unexpected Weight Loss, No Flank pain, No Melena, No Hematochezia, No Frequency, No Urgency, No Burning, No Hematuria, No Rashes, No Diaphoresis. Appetite is Normal Physical Exam Gen-AAO x 3, NAD, Afebrile Head-NCAT, EOMI, PERRLA, Anicteric Sclera, No Posterior Pharyngeal Erythema Neck-Supple, No JVD, No Thyromegaly, No Masses, No LAD, No Bruits Lungs-Clear to Auscultation Bilaterally, No Rales, No Rhonchi, No Wheezing, No Crepitus Chest-Irreg/Irreg, No S4, +S1, +S2, No S3, No Murmurs, No Rubs, No Gallops, No Ectopy Abdomen-Soft, Bowel Sounds Present, Non Tender, Non Distended, No Hepatomegaly, No Splenomegaly, No Palpable Masses, No Rebound, No Rigidity, No Guarding Musculoskeletal-Full Range of Motion Bilaterally, No CVAT Extremities-No Cyanosis, No Clubbing, No Edema Nuero-Cranial Nerves II-XII grossly intact, Motor WNL, DTRs WNL, Strength WNL, Non Focal Psych-Normal Mood (1) Diabetes mellitus type II, controlled Chronic kidney disease stage: unspecified stage Diabetes mellitus complication detail: with chronic kidney disease Diabetes mellitus complication status: with kidney complications Diabetes mellitus long-term insulin use: with 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
[2019-02-27] MEDS ORDERED: DEXTROSE 50% 50 ML SYRINGE IV PRN (19:19)
[2019-02-27] MEDS ORDERED: GLUCOSE 40% GEL 15 GM TUBE PO PRN (19:19)
[2019-02-27] MEDS ORDERED: GLUCOSE 10 TABS/TUBE PO PRN (19:19)
[2019-02-27] MEDS ORDERED: ONDANSETRON INJ 2 MG/ML 2 ML VIAL IV PRN (19:19)
[2019-02-27] MEDS ORDERED: GLUCAGON FOR INJ 1 MG VIAL SQ PRN (19:19)
[2019-02-27] MEDS ORDERED: CARBOHYDRATES FOR HYPOGLYCEMIA PO PRN (19:19)
[2019-02-27] MEDS ORDERED: ACETAMINOPHEN 325 MG TAB PO PRN (19:19)
[2019-02-27] MEDS: POTASSIUM CHLORIDE 10 MEQ TABCR PO SCH (21:10)
[2019-02-27] MEDS: SACUBITRIL-VALSARTAN 49/51 MG TAB PO SCH (21:10)
[2019-02-27] MEDS: ATORVASTATIN 40 MG TAB PO SCH (21:11)
[2019-02-27] MEDS: VENLAFAXINE HCL XR 150 MG CAPXR PO SCH (21:11)
[2019-02-27] MEDS: METOPROLOL SUCC 50MG EXT REL TAB PO SCH (21:12)
[2019-02-27] MEDS: INSULIN ASPART 100 UNITS/ML 3 ML PEN SC SCH (21:15)
[2019-02-27] MEDS: INSULIN GLARGINE SOLOSTAR 100 UNITS/ML 3 ML PEN SC SCH (21:17)
[2019-02-28 04:27] LABS: Hematocrit (blood only) 43.7 % (42-52); Hemoglobin 14.8 g/dL (14.0-18.0); Mean Corpuscular Hgb Conc 33.9 g/dL (32-36); Mean Corpuscular Volume 97.3 fL (80-100); Mean Platelet Volume 10.2 fL (7.4-10.4); Platelet Count 206 K/uL (130-400); RDW Coefficient of Variation 14.9 % (11.5-14.5); RDW Standard Deviation 52.5 fL (36.4-46.3); Red Blood Count 4.49 M/uL (4.7-6.1); White Blood Count 8.97 K/uL (4.8-10.8)
[2019-02-28 04:36] LABS: INR 2.4 (0.9-1.1)
[2019-02-28 04:54] LABS: BUN Creatinine Ratio 36.9 (10-20); Calcium 9.3 mg/dl (8.5-10.1); Creatinine Clr Calc Pharmacy 45.4 ml/min; Est GFR (African American) 42.1; Est GFR (Non-African American) 36.4; Potassium 4.4 mmol/L (3.5-5.1)
[2019-02-28 05:02] LABS: Troponin I 0.49 ng/ml (0-0.045)
[2019-02-28] MEDS: VENLAFAXINE HCL XR 150 MG CAPXR PO SCH ×2 (08:46→21:26)
[2019-02-28] MEDS: SACUBITRIL-VALSARTAN 49/51 MG TAB PO SCH ×2 (08:46→21:26)
[2019-02-28] MEDS: POTASSIUM CHLORIDE 10 MEQ TABCR PO SCH ×2 (08:46→21:25)
[2019-02-28] MEDS: allopurinoL 100 MG TAB PO SCH (08:46)
[2019-02-28] MEDS: METOPROLOL SUCC 50MG EXT REL TAB PO SCH ×2 (08:47→21:27)
[2019-02-28] MEDS: allopurinoL 300 MG TAB PO SCH (08:47)
[2019-02-28] MEDS: ASPIRIN 81 MG ECTAB PO SCH (08:47)
[2019-02-28] MEDS: BUMETANIDE 1 MG TAB PO SCH ×2 (08:47→13:00)
[2019-02-28] MEDS: INSULIN GLARGINE SOLOSTAR 100 UNITS/ML 3 ML PEN SC SCH ×2 (08:48→21:28)
[2019-02-28] MEDS: INSULIN ASPART 100 UNITS/ML 3 ML PEN SC SCH ×4 (08:50→21:27)
[2019-02-28] MEDS ORDERED: DIGOXIN 0.125 MG TAB PO SCH (09:00)
--- NOTE | 2019-02-28 09:30 | Cardiology Consultation ---
Date of Consultation February 28, 2019 Assessment & Plan (1) Elevated troponin: Patient presented yesterday after an episode of chest pain with associated nausea, vomiting, and diaphoresis. His troponin on arrival was 0.107 and has trended up to 0.490. His symptoms and troponin elevation are certainly concerning for myocardial ischemia, especially given his known history of CAD. The patient does have an ICD in place, though, and he could have also potentially had a shock of his ICD causing the chest pain and bump of his troponin. Will interrogate his ICD today in order to see if it did indeed go off yesterday. Will also continue to trend his troponin. If device interrogation is unrevealing and/or the concern for myocardial ischemia remains, will then tentatively plan for cardiac catheterization tomorrow. (2) CAD (coronary artery disease): He has known CAD with prior intracoronary stenting. His symptoms yesterday and troponin elevation are certainly concerning for ischemia. Will continue to trend his troponin and consider cardiac catheterization tomorrow, especially if his device interrogation today is unrevealing. Continue aspirin and statin therapy. Continue beta leticia. (3) Systolic and diastolic CHF, chronic: He appears euvolemic and well compensated currently. Continue outpatient dosing of Bumex. Low sodium diet, <2,000 mg daily. Daily weights. Monitor I's&O's. (4) Ischemic cardiomyopathy: Continue metoprolol succinate and Entresto. (5) AICD (automatic cardioverter/defibrillator) present: His device will be interrogated today. (6) Atrial fibrillation, chronic: His rate is adequately controlled, and he is asymptomatic. Continue metoprolol and digoxin for rate control. His INR is therapeutic. Patient was seen and discussed with Dr. Vargas, and the plan was made in collaboration with him. History of Present Illness Reason for Consultation: Chest pain, NSTEMI Requesting Physician: Mikala Conley PA-C History of Present Illness Mr. Smith is a 68-year-old male with a past medical history significant for coronary artery disease, ischemic cardiomyopathy (EF 35%), chronic combined systolic and diastolic CHF, S/P Medtronic Visia AF Single Chamber AICD 10/24/17, chronic atrial fibrillation, moderate MR/TR, hypertension, type 2 diabetes mellitus, and dyslipidemia who was admitted yesterday with chest pain. The patient reports that he was in his usual state of health yesterday until around 2:00 pm when he was leaving [employer] and developed sudden onset chest pain. The discomfort occurred in his left chest wall, was non-radiating, and was sharp in quality. He noted "shakes," a hot sensation followed by chills, and diaphoresis in association with the chest pain. He was also nauseous and vomited several times. The chest pain lasted about 3-4 minutes in duration, but the other symptoms persisted. A provider from a nearby Urgent Care came out to him in the parking lot and gave him 2 baby aspirin and 1 nitro, but his symptoms persisted. He was then given another 2 aspirin and nitro when EMS arrived, and his symptoms resolved with the second nitro. He feels that the entire episode lasted about 15 minutes or so in duration. He has remained asymptomatic since that time and is currently chest pain free. The patient has a long-standing history of coronary artery disease. He had LAD stents placed in 1994 and again in 1996 at the time of an acute anterior wall myocardial infarction. The patient did well until August 2007 when he presented with an acute coronary syndrome. He had 2 bare metal stents placed at that time, 1 in the RCA and another in the LAD. He states that he "couldn't breathe" prior to his stent placements. The patient also has a history of heart failure and has been following with Kim Glaser in the heart failure program. He states that his weight has actually been trending downward. He has not noted any lower extremity edema. He denies exert ional dyspnea, orthopnea, or PND. He denies palpitations, lightheadedness, syncope, or presyncope. He denies abnormal bleeding such as melena, hematochezia, or hematuria. He denies cerebrovascular symptoms. Family history: Noncontributory given his own disease. Social history: He denies smoking or alcohol use. Allergies Allergy/AdvReac Type Severity Reaction Status Date / Time Penicillins Allergy Mild childhood Verified 02/18/19 04:06 reaction codeine AdvReac Mild NAUSEA, Verified 02/18/19 04:06 LIGHTHEADEDNESS simvastatin AdvReac Mild makes him Verified 02/18/19 04:06 feel like he is high Home Medications Home Medications Medication Instructions Recorded Confirmed Type aspirin 81 mg PO QAM 01/25/18 02/27/19 History atorvastatin 40 mg PO QPM 01/25/18 02/27/19 History warfarin 2.5 mg PO QAM 02/17/18 02/27/19 History digoxin 125 mcg PO Q2D 05/10/18 02/27/19 History allopurinol 100 mg PO QAM 09/11/18 02/27/19 History allopurinol 300 mg PO QAM 09/26/18 02/27/19 History insulin glargine 100 unit/mL (3 45 units SUBCUT QAM ml 12/17/18 02/27/19 History mL) subcutaneous pen acetaminophen [Tylenol Extra 1,000 mg PO Q6H PRN 01/21/19 02/27/19 History Strength] metoprolol succinate 100 mg PO BID 01/21/19 02/27/19 History nitroglycerin 0.4 mg SUBLINGUAL UD PRN 01/21/19 02/27/19 History venlafaxine 150 mg PO BID 01/21/19 02/27/19 History bumetanide 2 mg tablet 2 mg PO .DAILY@LUNCH 01/30/19 02/27/19 History insulin aspart U-100 100 unit/mL 6 units SQ ACHS ml 01/30/19 02/27/19 History (3 mL) subcutaneous pen meclizine 12.5 mg tablet 12.5 mg PO TID PRN 01/30/19 02/27/19 History sacubitril 97 mg-valsartan 103 mg 1 tab PO BID 90 Days #180 tab 01/30/19 02/27/19 Rx tablet bumetanide 4 mg PO QAM 02/27/19 02/27/19 History potassium chloride 10 meq PO BID 02/27/19 02/27/19 History Patient History Medical History (Updated 02/27/19 @ 19:34 by Mikala Conley PA-C) Anxiety (Inactive) Atrial fibrillation, chronic (Chronic) CAD (coronary artery disease) (Chronic) stenting to LAD in 1994 and 1996 stenting to RCA and LAD in 2007 CKD (chronic kidney disease) Congestive heart failure (Resolved) Depression with anxiety (Chronic) Diabetes mellitus type II, controlled (Chronic) Diabetic neuropathy (Chronic) Dyslipidemia (Chronic) Gout HTN (hypertension) (Chronic) Hypokalemia Ischemic dilated cardiomyopathy (Inactive) skilled nursing current use of anticoagulant (Chronic) warfarin daily Myocardial Infarction (Resolved) 1989. CARDIAC CATH WITH 2 STENTS ANTOINETTE on CPAP (Chronic) Systolic and diastolic CHF, chronic (Chronic) Surgical History AICD (automatic cardioverter/defibrillator) present (Chronic) placed on 10/24/17 [employer] DEVICE. LAST CHECKED [address] DOMINGUEZ[facility]. PLACED IN OCTOBER 2017 AT [facility] History of bowel resection (Resolved) MASSIVE POLPYS History of cardiac cath (Inactive) 1989 --> X2 STENTS. BARE METAL STENTS ~1992 --> X2 STENTS. DRUG ELUTING STENTS. 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 All other 10 point ROS are reviewed and otherwise negative at this time. Physical Exam Physical Exam: Constitutional: Alert, oriented, in no acute distress HEENT: Head is atraumatic and normocephalic. EOMs intact. Sclera non-icteric. Face is symmetric. No perioral cyanosis. Mucous membranes moist Neck: Supple, no JVD Pulmonary: Normal respiratory effort, clear to auscultation throughout Cardiac: Irregularly irregular, normal S1 and S2, no gallops, no rubs, no obvi ous murmurs Extremities: No significant edema. No clubbing or cyanosis. Pulses 2+ and symmetric Abdomen: Normal bowel sounds, soft, non-tender, no abdominal masses palpated Skin: Chronic venous stasis skin changes noted. No rash or skin lesions Neurological: Oriented to person, place, and time Results & Data Vital Signs (Past 12 Hours) Vital Signs Temp Pulse Resp BP BP Pulse Ox 02/28/19 07:43 97.5 F L 79 20 101/48 L 95 02/28/19 04:52 97.7 F 88 18 101/58 L 95 02/27/19 23:22 98.4 F 100 H 19 118/49 L 93 Laboratory Results Laboratory Results WBC 8.97 K/uL (4.8-10.8) 02/28/19 03:59 RBC 4.49 M/uL (4.7-6.1) L 02/28/19 03:59 Hgb 14.8 g/dL (14.0-18.0) 02/28/19 03:59 Hct 43.7 % (42-52) 02/28/19 03:59 MCV 97.3 fL (80-100) 02/28/19 03:59 MCH 33.0 pg (25-34) 02/28/19 03:59 MCHC 33.9 g/dL (32-36) 02/28/19 03:59 RDW Std Deviation 52.5 fL (36.4-46.3) H 02/28/19 03:59 RDW Coeff of Joe 14.9 % (11.5-14.5) H 02/28/19 03:59 Plt Count 206 K/uL (130-400) 02/28/19 03:59 MPV 10.2 fL (7.4-10.4) 02/28/19 03:59 Immature Gran % (Auto) 0.1 % 02/27/19 15:54 Neut % (Auto) 82.9 % 02/27/19 15:54 Lymph % (Auto) 7.4 % 02/27/19 15:54 [place] % (Auto) 8.8 % 02/27/19 15:54 Eos % (Auto) 0.7 % 02/27/19 15:54 Baso % (Auto) 0.1 % 02/27/19 15:54 Immature Gran # (Auto) 0.01 K/uL (0.00-0.02) 02/27/19 15:54 Neut # (Auto) 7.19 K/uL (1.4-6.5) H 02/27/19 15:54 Lymph # (Auto) 0.64 K/uL (1.2-3.4) L 02/27/19 15:54 [place] # (Auto) 0.76 K/uL (0.11-0.59) H 02/27/19 15:54 Eos # (Auto) 0.06 K/uL (0-0.5) 02/27/19 15:54 Baso # (Auto) 0.01 K/uL (0-0.2) 02/27/19 15:54 PT 23.0 Seconds (9.0-12.0) H 02/28/19 03:59 INR 2.4 (0.9-1.1) H 02/28/19 03:59 APTT 31.3 Seconds (21.0-31.0) H 02/27/19 15:54 PTT Ratio 1.2 02/27/19 15:54 Sodium 134 mmol/L (136-145) L 02/28/19 03:59 Potassium 4.4 mmol/L (3.5-5.1) D 02/28/19 03:59 Chloride 95 mmol/L (98-107) L 02/28/19 03:59 Carbon Dioxide 33 mmol/L (21-32) H 02/28/19 03:59 Anion Gap 6.0 (3-11) 02/28/19 03:59 BUN 69 mg/dl (7-18) H 02/28/19 03:59 Creatinine 1.86 mg/dl (0.6-1.4) H 02/28/19 03:59 Est Cr Clr Drug Dosing 45.4 ml/min 02/28/19 03:59 Est GFR ( Amer) 42.1 02/28/19 03:59 Est GFR (Non-Af Amer) 36.4 02/28/19 03:59 BUN/Creatinine Ratio 36.9 (10-20) H 02/28/19 03:59 Glucose 131 mg/dl (70-99) H 02/28/19 03:59 POC Glucose 165 (70-99) H 02/28/19 07:20 Calcium 9.3 mg/dl (8.5-10.1) 02/28/19 03:59 Magnesium 1.8 mg/dl (1.8-2.4) 02/27/19 15:54 Total Bilirubin 0.6 mg/dl (0.2-1) 02/27/19 15:54 AST 15 U/L (15-37) 02/27/19 15:54 ALT 15 U/L (12-78) 02/27/19 15:54 Alkaline Phosphatase 88 U/L (45-117) 02/27/19 15:54 Troponin I 0.490 ng/ml (0-0.045) H* 02/28/19 03:59 Total Protein 7.6 gm/dl (6.4-8.2) 02/27/19 15:54 Albumin 3.9 gm/dl (3.4-5.0) 02/27/19 15:54 Globulin 3.7 gm/dl (2.5-4.0) 02/27/19 15:54 Albumin/Globulin Ratio 1.1 (0.9-2) 02/27/19 15:54 Lipase 142 U/L (73-393) 02/27/19 15:54 Digoxin 0.5 ng/ml (0.8-2.0) L 02/27/19 15:54 Diagnostic Findings CXR 02/27/19: 1. Marked enlargement of the cardiopericardial silhouette. This may indicate underlying pericardial effusion and/or cardiomegaly. 2. No significant volume overload or congestive change. 3. Possible left basilar atelectasis and/or trace left pleural effusion. 4. No significant change from prior. ECGs: Atrial fibrillation with premature ventricular or aberrantly conducted complexes. Low voltage QRS. Septal infarct. Nonspecific ST-T wave abnormality. ECHOCARDIOGRAM 11/08/2018: -- Mildly dilated LV with moderately reduced LV systolic function. -- LVEF 35% with anteroapical akinesis. -- Mild AI. -- Mild MR. -- Mild TR -- Normal RV size and systolic function. -- Moderate biatrial dilatation. PG Care Time/CCT Total # of Minutes Spent Total Time Spent with Patient: Total time spent is greater than 50% in coordination of care (as documented) at patient's floor/unit and/or counseling patient: (1) CAD (coronary artery disease) Associated angina: without angina Coronary Disease-Associated Artery/Lesion type: [place] artery [place] vs. transplanted heart: [place] heart Qualified Code(s): I25.10 - Atherosclerotic heart disease of [place] coronary artery without angina pectoris
--- NOTE | 2019-02-28 09:57 | Hospitalist Progress Note ---
Date of Service February 28, 2019 Assessment & Plan (1) Elevated troponin: (2) Precordial chest pain: This is a 68-year-old male with a PMH chronic systolic heart failure secondary to ischemic cardiomyopathy, history of AICD placement, CAD (h/o 4 stents), atrial fibrillation on Coumadin, valvular disease (MR, TR, AR), DM II and other medical problems below who presents with chest pain beginning this afternoon. -Left sided chest pain, Nausea, Vomiting, with associated SOB, h/o CAD -Received 4 baby aspirin and nitro in route to the hospital and symptoms resolved by time of arrival -EKG with A Fib, PVCs and non-specific ST changes. Initial troponin mildly elevated at 0.107, indicating strain -CXR with marked enlargement of the cardiopericardial silhouette that may indicate underlying pericardial effusion and/or cardiomegaly -Trops up -Therapeutic on coumadin with INR of 2.7. Will hold coumadin for now and reassess INR in AM. Plan to add low dose heparin when INR <2 in case of need for cardiac cath -Follows with Dr. Vargas of [facility] cardiology. Routine consult placed (3) Hypokalemia: Initial potassium of 3.2. Given 40mEq KCl, continue home supplement (4) Atrial fibrillation, chronic: A fib with HR 95-100 upon arrival -Given IV Lopressor x 1. Continue home beta-leticia dose -Monitor on telemetry -Therapeutic on anticoagulation (5) Systolic and diastolic CHF, chronic: Appears euvolemic on exam. Has been taking diuretics regularly, reports being down 9 pounds from baseline -Continue Bumex, metolazone, Toprol, Entresto (6) Diabetes mellitus type II, controlled: -Hold home agents -Basal/bolus insulin while inpatient -[facility] (7) HTN (hypertension): Normotensive. Continue Toprol (8) CKD (chronic kidney disease): Kidney function at baseline with Cr ~1.7. Follows with Dr. Gracia -Monitor with daily BMP (9) Dyslipidemia: Continue statin (10) Depression with anxiety: Continue venlafaxine (11) ANTOINETTE on CPAP: CPAP at bedtime (12) AICD (automatic cardioverter/defibrillator) present: DVT Ppx: Therapeutic on coumadin Code status: FULL PCP: Basil Dispo: Admitted to PCU Labs checked Await cards input ROS-No Headache, No Visual Changes, No Nausea, No Vomiting, No Fever, No Chills, No Neck Pain or Stiffness, No Chest Pain, No Palpitations, No SOB, No [place], No Cough, No Sputum, No Wheezing, No Abdominal Pain, No Diarrhea, No Hematemesis, No Hemoptysis, No Unexpected Weight Loss, No Flank pain, No Melena, No Hematochezia, No Frequency, No Urgency, No Burning, No Hematuria, No Rashes, No Diaphoresis. Appetite is Normal Physical Exam Gen-AAO x 3, NAD, Afebrile Head-NCAT, EOMI, PERRLA, Anicteric Sclera, No Posterior Pharyngeal Erythema Neck-Supple, No JVD, No Thyromegaly, No Masses, No LAD, No Bruits Lungs-Clear to Auscultation Bilaterally, No Rales, No Rhonchi, No Wheezing, No Crepitus Chest-No S4, +S1, +S2, No S3, No Murmurs, No Rubs, No Gallops, No Ectopy Abdomen-Soft, Bowel Sounds Present, Non Tender, Non Distended, No Hepatomegaly, No Splenomegaly, No Palpable Masses, No Rebound, No Rigidity, No Guarding Musculoskeletal-Full Range of Motion Bilaterally, No CVAT Extremities-No Cyanosis, No Clubbing, No Edema, chronic stasis changes Nuero-Cranial Nerves II-XII grossly intact, Motor WNL, DTRs WNL, Strength WNL, Non Focal Psych-Normal Mood Results & Data Vital Signs (Past 12 Hours) Vital Signs Temp Pulse Resp BP BP Pulse Ox 02/28/19 07:43 36.4 C L 79 20 101/48 L 95 02/28/19 04:52 36.5 C 88 18 101/58 L 95 02/27/19 23:22 36.9 C 100 H 19 118/49 L 93 (1) Diabetes mellitus type II, controlled Diabetes mellitus 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
[2019-02-28] MEDS: ATORVASTATIN 40 MG TAB PO SCH (21:28)
[2019-03-01 07:15] LABS: Hematocrit (blood only) 43.8 % (42-52); Hemoglobin 14.4 g/dL (14.0-18.0); Mean Corpuscular Hemoglobin 32.1 pg (25-34); Mean Corpuscular Hgb Conc 32.9 g/dL (32-36); Mean Corpuscular Volume 97.8 fL (80-100); Mean Platelet Volume 10.6 fL (7.4-10.4); Platelet Count 169 K/uL (130-400); RDW Coefficient of Variation 15.2 % (11.5-14.5); RDW Standard Deviation 54.3 fL (36.4-46.3); Red Blood Count 4.48 M/uL (4.7-6.1); White Blood Count 7.57 K/uL (4.8-10.8)
[2019-03-01 07:24] LABS: INR 2.1 (0.9-1.1); Prothrombin Time 20.3 Seconds (9.0-12.0)
[2019-03-01 07:40] LABS: BUN Creatinine Ratio 36.2 (10-20); Calcium 9.8 mg/dl (8.5-10.1); Creatinine Clr Calc Pharmacy 35.9 ml/min; Est GFR (African American) 31.9; Est GFR (Non-African American) 27.5; Potassium 4.3 mmol/L (3.5-5.1)
[2019-03-01] MEDS: INSULIN ASPART 100 UNITS/ML 3 ML PEN SC SCH ×2 (08:24→11:53)
[2019-03-01] MEDS: INSULIN GLARGINE SOLOSTAR 100 UNITS/ML 3 ML PEN SC SCH (08:25)
[2019-03-01] MEDS: METOPROLOL SUCC 50MG EXT REL TAB PO SCH (08:25)
[2019-03-01] MEDS: allopurinoL 100 MG TAB PO SCH (08:26)
[2019-03-01] MEDS: POTASSIUM CHLORIDE 10 MEQ TABCR PO SCH (08:26)
[2019-03-01] MEDS: VENLAFAXINE HCL XR 150 MG CAPXR PO SCH (08:26)
[2019-03-01] MEDS: ASPIRIN 81 MG ECTAB PO SCH (08:26)
[2019-03-01] MEDS: SACUBITRIL-VALSARTAN 49/51 MG TAB PO SCH (08:26)
[2019-03-01] MEDS: BUMETANIDE 1 MG TAB PO SCH ×2 (08:26→11:52)
[2019-03-01] MEDS: allopurinoL 300 MG TAB PO SCH (08:27)
[2019-03-01] MEDS ORDERED: AMIODARONE 200 MG TAB PO ONE (11:26)
--- NOTE | 2019-03-01 11:27 | Discharge Summary ---
Date of Service March 01, 2019 Admission HPI Per Admitting Provider This is a 68-year-old male with a PMH chronic systolic heart failure secondary to ischemic cardiomyopathy, history of AICD placement, CAD (h/o 4 stents), atrial fibrillation on Coumadin, valvular disease (MR, TR, AR), DM II and other medical problems below who presents with chest pain beginning this afternoon. Patient was reportedly in normal state of health and had been shopping at [employer] but when leaving the store in the parking lot, developed sudden onset left- sided chest pain with associated shortness of breath, nausea and multiple bouts of vomiting. Chest pain only lasted a few seconds but continued to feel nauseated and diaphoretic. Called for help and EMS came to the scene. Patient received 4 baby aspirin and nitro in route to the hospital felt back to baseline by time of arrival. In ED, patient was found to be afebrile, normotensive mildly tachycardic at 95- 100. Has been chest pain free since arrival. EKG with A Fib, PVCs and non- specific ST changes. INR is therapeutic on coumadin at 2.7. Creatinine is at baseline ~1.7. Initial troponin mildly elevated at 0.107. CXR with marked enlargement of the cardiopericardial silhouette that may indicate underlying pericardial effusion and/or cardiomegaly. Follows with Dr. Vargas of [facility] [place] cardiology. Reports taking all medications including diuretics and is down 9 pounds. Admission Exam Per Admitting Provider Gen-AAO x 3, NAD, Afebrile Head-NCAT, EOMI, PERRLA, Anicteric Sclera, No Posterior Pharyngeal Erythema Neck-Supple, No JVD, No Thyromegaly, No Masses, No LAD, No Bruits Lungs-Clear to Auscultation Bilaterally, No Rales, No Rhonchi, No Wheezing, No Crepitus Chest-No S4, +S1, +S2, No S3, No Murmurs, No Rubs, No Gallops, No Ectopy Abdomen-Soft, Bowel Sounds Present, Non Tender, Non Distended, No Hepatomegaly, No Splenomegaly, No Palpable Masses, No Rebound, No Rigidity, No Guarding Musculoskeletal-Full Range of Motion Bilaterally, No CVAT Extremities-No Cyanosis, No Clubbing, No Edema, chronic stasis changes Nuero-Cranial Nerves II-XII grossly intact, Motor WNL, DTRs WNL, Strength WNL, Non Focal Psych-Normal Mood Principal Diagnosis Ventricular Tachycardia CAD (1) Elevated troponin: (2) Precordial chest pain: (3) Hypokalemia: (4) Atrial fibrillation, chronic: (5) Systolic and diastolic CHF, chronic: (6) Diabetes mellitus type II, controlled: (7) HTN (hypertension): (8) CKD (chronic kidney disease): (9) Dyslipidemia: (10) Depression with anxiety: (11) ANTOINETTE on CPAP: (12) AICD (automatic cardioverter/defibrillator) present: Discharge Exam Gen-AAO x 3, NAD, Afebrile Head-NCAT, EOMI, PERRLA, Anicteric Sclera, No Posterior Pharyngeal Erythema Neck-Supple, No JVD, No Thyromegaly, No Masses, No LAD, No Bruits Lungs-Clear to Auscultation Bilaterally, No Rales, No Rhonchi, No Wheezing, No Crepitus Chest-No S4, +S1, +S2, No S3, No Murmurs, No Rubs, No Gallops, No Ectopy Abdomen-Soft, Bowel Sounds Present, Non Tender, Non Distended, No Hepatomegaly, No Splenomegaly, No Palpable Masses, No Rebound, No Rigidity, No Guarding Musculoskeletal-Full Range of Motion Bilaterally, No CVAT Extremities-No Cyanosis, No Clubbing, No Edema, Chronic stasis changes Nuero-Cranial Nerves II-XII grossly intact, Motor WNL, DTRs WNL, Strength WNL, Non Focal Psych-Normal Mood Discharge Data Allergies Allergy/AdvReac Type Severity Reaction Status Date / Time Penicillins Allergy Mild childhood Verified 02/18/19 04:06 reaction codeine AdvReac Mild NAUSEA, Verified 02/18/19 04:06 LIGHTHEADEDNESS simvastatin AdvReac Mild makes him Verified 02/18/19 04:06 feel like he is high Consultations 02/27/19 16:40 ED Decision to Admit Stat 02/27/19 19:19 Consult Cardiology Routine Current Diagnoses Type 2 diabetes mellitus with diabetic chronic kidney disease (02/27/19) Hyperlipidemia, unspecified (02/27/19) Hypokalemia (02/27/19) Other specified anxiety disorders (02/27/19) Obstructive sleep apnea (adult) (pediatric) (02/27/19) Essential (primary) hypertension (02/27/19) Atherosclerotic heart disease of [place] coronary artery without angina pectoris (02/27/19) Ischemic cardiomyopathy (02/27/19) Chronic atrial fibrillation (02/27/19) Chronic combined systolic (congestive) and diastolic (congestive) heart failure (02/27/19) Chronic kidney disease, unspecified (02/27/19) Precordial pain (02/27/19) Other specified abnormal findings of blood chemistry (02/27/19) MCC (current) use of insulin (02/27/19) Presence of automatic (implantable) cardiac defibrillator (02/27/19) Dependence on other enabling machines and devices (02/27/19) Allergies Penicillins Allergy (Mild, Verified 02/18/19 04:06) childhood reaction codeine Adverse Reaction (Mild, Verified 02/18/19 04:06) NAUSEA, LIGHTHEADEDNESS simvastatin Adverse Reaction (Mild, Verified 02/18/19 04:06) makes him feel like he is high Height/Weight/Isolation Height 5 ft 7 in Weight 111 kg Chemistry 02/27/19 02/28/19 03/01/19 15:54 03:59 06:36 Sodium 133 L 134 L 132 L Potassium 3.2 L 4.4 D 4.3 Chloride 94 L 95 L 94 L Carbon Dioxide 29 33 H 30 Anion Gap 9.0 6.0 8.0 BUN 77 H 69 H 85 H Creatinine 1.70 H 1.86 H 2.34 H D Glucose 105 H 131 H 140 H Hospital Course (1) Elevated troponin: (2) Precordial chest pain: This is a 68-year-old male with a H chronic systolic heart failure secondary to ischemic cardiomyopathy, history of AICD placement, CAD (h/o 4 stents), atrial fibrillation on Coumadin, valvular disease (MR, TR, AR), DM II and other medical problems below who presents with chest pain beginning this afternoon. -Left sided chest pain, Nausea, Vomiting, with associated SOB, h/o CAD -Received 4 baby aspirin and nitro in route to the hospital and symptoms resolved by time of arrival -EKG with A Fib, PVCs and non-specific ST changes. Initial troponin mildly elevated at 0.107, indicating strain -CXR with marked enlargement of the cardiopericardial silhouette that may indicate underlying pericardial effusion and/or cardiomegaly -Trops up -Therapeutic on coumadin with INR of 2.7. Will hold coumadin for now and r eassess INR in AM. Plan to add low dose heparin when INR <2 in case of need for cardiac cath -Follows with Dr. Vargas of [facility] [place] cardiology. PT had AICD fire 3-4 times, Recalibrated and adjusted, DC home today on Amiodarone 400 BID x 14 days then 400 QD, F/U c Dr Riggs in the office (3) Hypokalemia: Initial potassium of 3.2. Given 40mEq KCl, continue home supplement (4) Atrial fibrillation, chronic: A fib with HR 95-100 upon arrival -Given IV Lopressor x 1. Continue home beta-leticia dose -Therapeutic on anticoagulation (5) Systolic and diastolic CHF, chronic: Appears euvolemic on exam. Has been taking diuretics regularly, reports being down 9 pounds from baseline -Continue Bumex, metolazone, Toprol, Entresto (6) Diabetes mellitus type II, controlled: -Home agents (7) HTN (hypertension): Normotensive. Continue Toprol (8) CKD (chronic kidney disease): Kidney function at baseline with Cr ~1.7. Follows with Dr. Gracia (9) Dyslipidemia: Continue statin (10) Depression with anxiety: Continue venlafaxine (11) ANTOINETTE on CPAP: CPAP at bedtime (12) AICD (automatic cardioverter/defibrillator) present: DVT Ppx: Therapeutic on coumadin Code status: FULL PCP: Basil Dispo: Home today f/u c Dr Ibanez Total Time Total Time Spent Total Time Spent (In Minutes): 45 mins Total Time Includes: Examination of the Patient, Discharge Planning, Medication Reconciliation and Communication With Other Providers Discharge Plan Discharge Items Patient Disposition: Home - Self-Care Reason For Visit: CHEST PAIN Discharge Diagnosis: Ventricular Tachycardia CAD (1) Elevated troponin: (2) Precordial chest pain: (3) Hypokalemia: (4) Atrial fibrillation, chronic: (5) Systolic and diastolic CHF, chronic: (6) Diabetes mellitus type II, controlled: (7) HTN (hypertension): (8) CKD (chronic kidney disease): (9) Dyslipidemia: (10) Depression with anxiety: (11) ANTOINETTE on CPAP: (12) AICD (automatic cardioverter/defibrillator) present: Condition on Discharge: Good Health Concerns: AICD was firing Activity: Resume your previous activity Lifting: None Bathing: No limitations Sexual Activity: When tolerated Exercise/Sports: None Driving/Machine Use: No limitations Weightbearing: Full weightbearing Non-emergency contact: Primary Care Provider and Funder Call non-emergency contact if: you have any medication questions Follow-up/Referrals: Delmer Gracia MD [Primary Care Provider] - Quinton Riggs MD [Physician] - (Call for first Opening) Diet: Carb Consistent or DM2 and Heart Healthy Addtl Attending Provider Instructions: F/U as needed, AICD was firing. Pending Studies at Discharge: No Stand-Alone Forms: Call Back Authorization, [facility] [place] [employer], Smoking Cessation Medications and DC Order Prescriptions: New amiodarone 400 mg tablet 400 mg PO Q12H 30 Days Qty: 60 RF: 0 Continued meclizine 12.5 mg tablet 12.5 mg PO TID PRN (Reason: Dizziness Or Vertigo) RF: 0 Entresto 97-103 mg tablet 1 tab PO BID 90 Days Qty: 180 RF: 2 warfarin 5 mg Tablet 2.5 mg PO QAM RF: 0 allopurinol 300 mg tablet 300 mg PO QAM RF: 0 atorvastatin 40 mg Tablet 40 mg PO QPM RF: 0 aspirin 81 mg Tablet,Delayed Release (Dr/Ec) 81 mg PO QAM RF: 0 digoxin 125 mcg Tablet 125 mcg PO Q2D RF: 0 Lantus Solostar U-100 Insulin 100 unit/mL (3 mL) insulin pen 45 units subcut QAM RF: 0 allopurinol 100 mg Tablet 100 mg PO QAM RF: 0 Novolog Flexpen U-100 Insulin 100 unit/mL (3 mL) insulin pen 6 units SQ ACHS RF: 0 venlafaxine 150 mg capsule,extended release 24hr 150 mg PO BID RF: 0 acetaminophen [Tylenol Extra Strength] 500 mg Tablet 1,000 mg PO Q6H PRN (Reason: Pain) RF: 0 nitroglycerin 0.4 mg tablet, sublingual 0.4 mg sublingual UD PRN (Reason: Chest Pain) RF: 0 metoprolol succinate 100 mg tablet extended release 24 hr 100 mg PO BID RF: 0 bumetanide 2 mg tablet 2 mg PO .DAILY@LUNCH RF: 0 bumetanide 2 mg Tablet 4 mg PO QAM RF: 0 potassium chloride 10 mEq tablet extended release 10 meq PO BID RF: 0 Discharge Orders: Discharge Order (Routine); Ordered 03/01/19 Ordered By: Esau Renteria Admission Data Admit Date/Time: 02/27/19 17:42 Attending Provider: Esau Renteria Admit Provider: Esau Renteria Primary Care Provider: Delmer Gracia Other Providers: Arjun Horvath ; Harrison Vargas
[2019-03-01 11:47] VITALS: PULSE 65; TEMP 97.7; O2SAT 95
[2019-03-01 12:38] VITALS: BP 105/62
--- NOTE | 2019-03-01 13:39 | Cardiology Consultation ---
Date of Consultation March 01, 2019 Assessment & Plan (1) Ventricular tachycardia: The intracardiac electrograms revealed ventricular tachycardia. Surprisingly, he did not suffer syncope or significant dizziness. The event itself lasted a few minutes and actually consisted of 2 events. The initial episode of ventricular tachycardia was not terminated with ATP or to attempts at cardioversion. A 2nd episode was also not terminated with 2 attempts at cardioversion. On both occasions the 3rd therapy converted him back to atrial fibrillation. This is a scar mediated phenomenon in this individual with known ischemic heart disease. Why he had this episode yesterday is less clear. He did not appear to have decompensated heart failure or active ischemia. His potassium was somewhat low and replenishment of potassium would seem reasonable. In order to prevent recurrences he will likely require some anti rhythmic therapy. His options are limited given his renal dysfunction. Ideally I think sotalol would be a good choice, but I think we will recommend amiodarone given his renal dysfunction. We can monitor him for. On amiodarone and consider gradually lowering the dose over time if he has no recurrent arrhythmia Of greater concern was the in efficacy of his device in the setting of ventricular tachycardia. On both occasions, the 1st 2 therapies failed to terminate the arrhythmia. Evaluation of his device reveals that the 3rd therapy was programmed with reversed polarity. He does not have other options for reprogramming giving the single coil lead used in his device. I reprogrammed his device so that the initial therapies are reversed polarity. With the ad dition of amiodarone we need to be cautious regarding increasing defibrillation thresholds. His rhythm was ventricular tachycardia and not ventricular fibrillation, however I think repeating DFT testing would be reasonable after he has been on amiodarone for few weeks. For recurrent ventricular tachycardia, catheter based therapy would also be an option. He has had catheter based treatment for his atrial fibrillation in the past and is less enthusiastic about that option currently. History of Present Illness Reason for Consultation: Ventricular tachycardia Requesting Physician: Sam Attending Physician: Esau Renteria DO History of Present Illness The patient is a 68-year-old gentleman with a history of an ischemic cardiomyopathy who was admitted 2 days ago after an episode of chest pain. Patient states that his symptoms began when he was sitting in his car. He had not been feeling poorly and in fact was doing some shopping. He did not report any symptoms leading up to a very acute episode of chest discomfort. He described it as a jolt in the precordium. It was severe and lasted just a few seconds. He reported several additional episodes of similar discomfort. In the interim he became very nauseated and was vomiting. He did not lose consciousness. He did not report symptoms of dizziness or lightheadedness. He was not aware of any palpitations. He did not have significant dyspnea. A bystander eventually saw him and contacted 911. His symptoms essentially resolved in route to the hospital. He has not had any additional episodes of chest discomfort since being brought to the hospital. He cannot recall similar episodes in the past. He has been able to maintain his usual level of activity recently. He has struggled in the past with symptoms of congestive heart failure and fluctuations in his volume status. However, recently he has not had significant breathing trouble. He did not report any palpitations recently. He has not had any other symptoms of chest discomfort recently. No exertional symptoms. Currently feeling well. Allergies Allergy/AdvReac Type Severity Reaction Status Date / Time Penicillins Allergy Mild childhood Verified 02/18/19 04:06 reaction codeine AdvReac Mild NAUSEA, Verified 02/18/19 04:06 LIGHTHEADEDNESS simvastatin AdvReac Mild makes him Verified 02/18/19 04:06 feel like he is high Home Medications Home Medications Medication Instructions Recorded Confirmed Type aspirin 81 mg PO QAM 01/25/18 02/27/19 History atorvastatin 40 mg PO QPM 01/25/18 02/27/19 History warfarin 2.5 mg PO QAM 02/17/18 02/27/19 History digoxin 125 mcg PO Q2D 05/10/18 02/27/19 History allopurinol 100 mg PO QAM 09/11/18 02/27/19 History allopurinol 300 mg PO QAM 09/26/18 02/27/19 History insulin glargine 100 unit/mL (3 45 units SUBCUT QAM ml 12/17/18 02/27/19 History mL) subcutaneous pen acetaminophen [Tylenol Extra 1,000 mg PO Q6H PRN 01/21/19 02/27/19 History Strength] metoprolol succinate 100 mg PO BID 01/21/19 02/27/19 History nitroglycerin 0.4 mg SUBLINGUAL UD PRN 01/21/19 02/27/19 History venlafaxine 150 mg PO BID 01/21/19 02/27/19 History bumetanide 2 mg tablet 2 mg PO .DAILY@LUNCH 01/30/19 02/27/19 History insulin aspart U-100 100 unit/mL 6 units SQ ACHS ml 01/30/19 02/27/19 History (3 mL) subcutaneous pen meclizine 12.5 mg tablet 12.5 mg PO TID PRN 01/30/19 02/27/19 History sacubitril 97 mg-valsartan 103 mg 1 tab PO BID 90 Days #180 tab 01/30/19 02/27/19 Rx tablet bumetanide 4 mg PO QAM 02/27/19 02/27/19 History potassium chloride 10 meq PO BID 02/27/19 02/27/19 History amiodarone 400 mg PO Q12H 30 Days #60 tab 03/01/19 Rx Patient History Medical History Anxiety (Inactive) Atrial fibrillation, chronic (Chronic) CAD (coronary artery disease) (Chronic) stenting to LAD in 1994 and 1996 stenting to RCA and LAD in 2007 CKD (chronic kidney disease) Congestive heart failure (Resolved) Depression with anxiety (Chronic) Diabetes mellitus type II, controlled (Chronic) Diabetic neuropathy (Chronic) Dyslipidemia (Chronic) Gout HTN (hypertension) (Chronic) Hypokalemia Ischemic dilated cardiomyopathy (Inactive) senior living current use of anticoagulant (Chronic) warfarin daily Myocardial Infarction (Resolved) 1989. CARDIAC CATH WITH 2 STENTS ANTOINETTE on CPAP (Chronic) Systolic and diastolic CHF, chronic (Chronic) Surgical History AICD (automatic cardioverter/defibrillator) present (Chronic) placed on 10/24/17 [employer]. LAST CHECKED [address] RIGGS/[facility]ICE. PLACED IN OCTOBER 2017 AT [facility] History of bowel resection (Resolved) MASSIVE POLPYS History of cardiac cath (Inactive) 1989 --> X2 STENTS. BARE METAL STENTS ~1992 --> X2 STENTS. DRUG ELUTING STENTS. 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 No edema. Physical Exam Physical Exam: The patient is alert and oriented. Mood and affect appeared normal. He answered all questions appropriately. HEENT: Pupils are equal and reactive to light and accommodation. Extraocular movements are intact. The sclerae are anicteric. Neuro: Cranial nerves intact Neck: Patient's neck is supple. He has palpable carotid pulses bilaterally without bruits on auscultation. There is no evidence of jugular venous distention. The thyroid is not enlarged. Lungs: Clear to auscultation bilaterally. He has good air movement without use of accessory muscles. No rales wheezes or rhonchi. Cardiac: Heart demonstrates an irregular rate and rhythm. Normal S1 and S2. No murmurs on examination. Pulses: The patient has palpable radial pulses bilaterally that are equal in intensity Extremities: There was no evidence of hypoperfusion. There is no cyanosis or clubbing. There is no edema. Skin: I did not appreciate any rashes on examination today. Results & Data Vital Signs (Past 12 Hours) Vital Signs Temp Pulse Resp BP BP Pulse Ox 03/01/19 12:37 36.5 C 65 16 105/62 95 03/01/19 12:02 36.5 C 65 16 104/53 L 95 03/01/19 11:45 36.5 C 65 16 85/52 L 95 03/01/19 07:30 36.6 C 73 16 104/53 L 96 03/01/19 03:05 36.5 C 75 18 100/57 L 93 Laboratory Results Abnormal Lab Results 1202/28/19 02/28/19 15:38 16:17 20:25 WBC RBC Hgb Hct MCV MCH MCHC RDW Std Deviation RDW Coeff of Joe Plt Count MPV PT INR Sodium Potassium Chloride Carbon Dioxide Anion Gap BUN Creatinine Est Cr Clr Drug Dosing Est GFR ( Amer) Est GFR (Non-Af Amer) BUN/Creatinine Ratio Glucose POC Glucose 118 H 146 H Calcium Troponin I 0.311 H* 02/28/19 03/01/19 03/01/19 21:52 06:36 06:36 WBC 7.57 RBC 4.48 L Hgb 14.4 Hct 43.8 MCV 97.8 MCH 32.1 MCHC 32.9 RDW Std Deviation 54.3 H RDW Coeff of Joe 15.2 H Plt Count 169 MPV 10.6 H PT 20.3 H INR 2.1 H Sodium Potassium Chloride Carbon Dioxide Anion Gap BUN Creatinine Est Cr Clr Drug Dosing Est GFR ( Amer) Est GFR (Non-Af Amer) BUN/Creatinine Ratio Glucose POC Glucose Calcium Troponin I 0.273 H* 03/01/19 03/01/19 03/01/19 06:36 07:22 11:31 WBC RBC Hgb Hct MCV MCH MCHC RDW Std Deviation RDW Coeff of Joe Plt Count MPV PT INR Sodium 132 L Potassium 4.3 Chloride 94 L Carbon Dioxide 30 Anion Gap 8.0 BUN 85 H Creatinine 2.34 H D Est Cr Clr Drug Dosing 35.9 Est GFR ( Amer) 31.9 Est GFR (Non-Af Amer) 27.5 BUN/Creatinine Ratio 36.2 H Glucose 140 H POC Glucose 136 H 141 H Calcium 9.8 Troponin I Diagnostic Findings I reviewed the source images of his chest x-rays revealing significant cardiomegaly. I reviewed the intracardiac electrograms and also performed a complete device interrogation with reprogramming of a single-chamber ICD ECG Additional Comments: EKG at the time of admission revealed atrial fibrillation with controlled ventricular rate. Old anterior myocardial infarction. Nonspecific PG Care Time/CCT Total # of Minutes Spent Total Time Spent with Patient: Total time spent is greater than 50% in coordination of care (as documented) at patient's floor/unit and/or counseling patient:
== END 2019-03-01 13:15 | disposition home or self-care (01) | DRG 309 ==
LOC: ED 14:51 → 2E 17:42

== ENCOUNTER 2019-08-05 17:28 | Inpatient (IN) ==
[2019-08-05 18:59] LABS: Hemoglobin 6.7 g/dL (14.0-18.0); Mean Corpuscular Hemoglobin 32.8 pg (25-34); Mean Corpuscular Hgb Conc 31.9 g/dL (32-36); Mean Corpuscular Volume 102.9 fL (80-100); Nucleated RBC # (auto) 0.49 K/uL (0-0); Nucleated RBC % (auto) 3.8 %; Platelet Count 178 K/uL (130-400); RDW Coefficient of Variation 19.8 % (11.5-14.5); RDW Standard Deviation 63.1 fL (36.4-46.3); Red Blood Count 2.04 M/uL (4.7-6.1); White Blood Count 12.69 K/uL (4.8-10.8)
[2019-08-05 19:11] LABS: Partial Thromboplastin Ratio 2.1; Prothrombin Time > 90.0 Seconds (9.0-12.0)
[2019-08-05 19:12] LABS: Albumin Level 2.8 gm/dl (3.4-5.0); BUN Creatinine Ratio 38.7 (10-20); Creatinine Clr Calc Pharmacy 55.1 ml/min; Est GFR (African American) 52.2; Magnesium 2.1 mg/dl (1.8-2.4); Potassium 3.8 mmol/L (3.5-5.1)
[2019-08-05 19:14] LABS: Hypochromasia Present; Ovalocytes 1+; Polychromasia 1+
--- NOTE | 2019-08-05 19:14 | XRay Report ---
SINGLE VIEW CHEST CLINICAL HISTORY: Atypical chest pain. FINDINGS: An AP, portable, upright chest radiograph is compared to study dated 02/27/2019. Correlatio n is made with chest CT dated 08/06/2017 A single lead cardiac AICD is unchanged in position. The hear t is markedly enlarged and there is atherosclerotic calcification of the thoracic aorta. Density yusuf g the right cardiac border is consistent with a pericardial cyst when correlated with prior CT scans. The pulmonary vasculature is noncongested. There is bibasilar atelectasis. No airspace consolidation or large pleural effusion is identified. No pneumothorax is seen. The skeletal structures are osteop enic. The bony thorax is grossly intact. IMPRESSION: 1. Cardiomegaly and AICD. There is no radiographic evidence of congestive failure. 2. No airspace consolidation or large pleural effusion is identified. Electronically signed by: Josue Snow M.D. 08/05/2019 7:12 PM
[2019-08-05 19:16] LABS: ALC (manual) 0.66 K/uL (1.2-3.4); Blast # (manual) 0.11 K/uL (0-0); Blast Cells % (manual) 0.9 %; Lymphocytes # (manual) 0.66 K/uL (1.2-3.4); Lymphocytes % (manual) 5.2 %; Monocytes # (manual) 0.22 K/uL (0.11-0.59); Monocytes % (manual) 1.7 %; Neutrophils % (manual) 92.2 %; Partial Thromboplastin Time 59.6 Seconds (21.0-31.0)
[2019-08-05 19:17] LABS: INR > 9.7 (0.9-1.1)
[2019-08-05] MEDS ORDERED: SODIUM CHLORIDE 0.9% 250 ML IV PRN ×2 (19:22→20:43)
[2019-08-05 19:23] LABS: Albumin Globulin Ratio 0.9 (0.9-2); Bilirubin,Total 0.6 mg/dl (0.2-1); Globulin 3.2 gm/dl (2.5-4.0); Phosphorus 3.4 mg/dl (2.5-4.9); Thyroid Stimulating Hormone 4.55 uIu/ml (0.300-4.500); Troponin I 0.024 ng/ml (0-0.045)
[2019-08-05] MEDS ORDERED: PHYTONADIONE 5 MG in SODIUM CHLORIDE 0.9% 50 ML IV ONE (19:27)
[2019-08-05 19:38] LABS: T4 Free Thyroxine 1.29 ng/dl (0.8-1.6)
[2019-08-05 20:36] LABS: Ferritin 78.3 ng/ml (8-388)
--- NOTE | 2019-08-05 20:50 | CT Scan Report ---
ABDOMEN AND PELVIS CT WITHOUT CONTRAST CT DOSE: 1413.72 mGy.cm HISTORY: Acute chest pain with anemia Chest pain, anemia TECHNIQUE: Multiaxial CT images of the abdomen and pelvis were performed without contrast. A dose lo wering technique was utilized adhering to the principles of ALARA. COMPARISON STUDY: CT abdomen and pelvis 05/10/2018 FINDINGS: Small bilateral pleural effusions are new from comparison. Partially imaged moderate sized pericardia l effusion appears unchanged. Marked cardiomegaly. Decreased attenuation of the cardiac blood pool uriarte ggests anemia. Partially imaged pacer leads over the right heart. Mild bibasilar densities suggest pr obable atelectasis. There is no pneumatosis or pneumoperitoneum. The spleen, pancreas and adrenal gla nds are unremarkable. Mildly contracted gallbladder with cholelithiasis. No biliary ductal dilation o r CT evidence of acute cholecystitis. The unenhanced liver is unremarkable. Indeterminate 5 mm hypode nsity of the hepatic dome is too small to characterize. There is asymmetric cortical thinning and atrophy of the right kidney. Additionally, there is asymmet ashley right-sided perinephric stranding which is most pronounced stranding the right renal pelvis. Mild pelvocaliectasis is unchanged. No renal or ureteral calculi. There may be a few tiny renal sinus cys ts of the right kidney. Moderate urinary bladder wall thickening with small right posterior lateral d iverticulum. Prostate appears surgically absent. Mild perivesicular stranding. Extensive calcified pl aque the abdominal aorta and branch vessels without aneurysm. Bilateral inguinal chain adenopathy is redemonstrated measuring up to 3.5 x 1.6 cm on the right which appears generally stable from comparis on. No new or progressive adenopathy. No bowel obstruction or bowel wall thickening. Colonic diverticulosis without acute diverticulitis. P ostoperative changes of partial colectomy with enterocolic anastomosis within the mid central abdomen . Mild generalized body wall edema. There are a few subcentimeter nodular foci of the subcutaneous an terior abdominal wall suggestive of medicinal injection sites. Degenerative changes of the spine, pel vis and hips.. IMPRESSION: 1. No bowel obstruction or bowel wall thickening. 2. Prior partial colectomy with enterocolic anastomosis. 3. Pathologically enlarged lymph nodes of the inguinal chains appear stable. No new or progressive ad enopathy. A right inguinal lymph node appears to have been previously biopsied. 4. New small pleural effusions with bibasilar atelectasis. 5. Marked cardiomegaly with unchanged partially imaged pericardial effusion which is at least moderat e in size. 6. Asymmetric cortical thinning with mild atrophy of the right kidney is redemonstrated along with ri ght greater than left perinephric stranding and right pelvocaliectasis. Correlate with urinalysis to exclude ascending infectious etiology. This finding could be correlated with a nonemergent follow-up CT urogram as a urothelial lesion could have a similar appearance. 7. Cholelithiasis. 8. Additional findings as above. ACT 112: Negative or not required by law. The above report was generated using voice recognition software. It may contain grammatical, syntax o r spelling errors. Electronically signed by: Jeevan Frazier M.D. 08/05/2019 8:49 PM
[2019-08-05 21:08] LABS: Folate (Folic Acid) 14.31 ng/ml (>5.38)
--- NOTE | 2019-08-05 21:31 | History & Physical Report ---
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 Hgb 6.7 in the ED. Unknown source of bleeding. INR >9. Started on Vit K, & given 1 unit FFP & 1 unit PRBCs. Hold Coumadin, ASA. Hold Amiodarone per attending physician as well due to elevation in INR. Continue Digoxin. Check Dig level. Admit to tele for monitoring. Trend INR and CBC Q 8h. Check FOBT. Consult GI. Start IV Protonix 40 mg BID. NPO after midnight. (6) Leukocytosis: Slightly elevated WBC count on admission with left shift. Perinephric stranding noted on CT Abd/pelvis. UA ordered. Hold abx for now. (7) Diabetes mellitus type II, controlled: Insulin protocol. Last A1C 7.7 01/29/19. Recheck in AM (8) Ischemic cardiomyopathy: (9) Systolic and diastolic CHF, chronic: (10) AICD (automatic cardioverter/defibrillator) present: (11) Atrial fibrillation, chronic: (12) CAD (coronary artery disease): (13) Ventricular tachycardia: Patient with extensive cardiac history. Continue home meds except as noted above. Consult Cardiology due to severe anemia and supratherapeutic INR. Will need to restart Coumadin when able. (14) HTN (hypertension): Continue home meds (15) Dyslipidemia: Repeat lipids in AM (16) ANTOINETTE on CPAP: CPAP at bedtime (17) Osteoarthritis of right hip: Patient planned for consultation for right hip replacement this . Unlikely to happen due to current conditions. Consider Orthopedic consultation (Dr. Conley) if needed during admission. (18) DVT prophylaxis: None at this time with supratherapeutic INR. History of Present Illness Chief Complaint: Symptomatic anemia Primary Care Provider: Delmer Gracia MD Patient is a 69 yo male with a complicated PMHx including DM Type 2 with insulin dependence & CKD Stage III, Hypertensive heart disease with chronic combined systolic and diastolic CHF, chronic AFib, ischemic cardiomyopathy, CAD, hyperlipidemia, hx UT and Ventricular tachycardia s/p ICD placement who presented to the ED with SOB, EASLEY, dizziness, and fatigue. He fell at home yesterday because of the dizziness but sustained no injury. He does have some bruising on his abdomen but he states this is chronic from his insulin injections. His appetite has been poor over the past couple days as well, so he is wondering if that's why his INR is so high. He hasn't had any other major changes recently. No headache, dysphagia, chest pain, abdominal pain, N/V/D/C, urinary symptoms or peripheral edema out of his norm. He does have some chronic edema in his legs. He also has chronic pain in his right hip. He was expected to go for consultation this to Dr. Conley for hip replacement planning. Since presentation to the ED, it was noted that his Hgb was 6.7. Last CBC as an outpatient showed Hgb 13.9 in 12/2018. WBC count mildly elevated. INR >9. BNP 1783. Patient does have history of partial colectomy. Most recent colonoscopy was completed in 09/2018. He was noted to have 2 polyps, multiple diverticula, internal hemorrhoids, but otherwise exam was benign. He has had no GERD symptoms. No signs of bleeding. No dark stools. Allergies Allergy/AdvReac Type Severity Reaction Status Date / Time Penicillins Allergy Mild childhood Verified 02/18/19 04:06 reaction codeine AdvReac Mild NAUSEA, Verified 02/18/19 04:06 LIGHTHEADEDNESS simvastatin AdvReac Mild makes him Verified 02/18/19 04:06 feel like he is high Home Medications Home Medications Medication Instructions Recorded Confirmed Type aspirin 81 mg PO QAM 01/25/18 08/05/19 History atorvastatin 40 mg PO QPM 01/25/18 08/05/19 History allopurinol 100 mg PO QAM 09/11/18 08/05/19 History allopurinol 300 mg PO QAM 09/26/18 08/05/19 History insulin glargine 100 unit/mL (3 45 units SUBCUT QAM ml 12/17/18 08/05/19 History mL) subcutaneous pen metoprolol succinate 100 mg PO BID 01/21/19 08/05/19 History nitroglycerin 0.4 mg SUBLINGUAL UD PRN 01/21/19 08/05/19 History venlafaxine 150 mg PO BID 01/21/19 08/05/19 History insulin aspart U-100 100 unit/mL 0 units SQ ACHS ml 01/30/19 08/05/19 History (3 mL) subcutaneous pen meclizine 12.5 mg tablet 12.5 mg PO TID PRN 01/30/19 08/05/19 History sacubitril 97 mg-valsartan 103 mg 1 tab PO BID 90 Days #180 tab 01/30/19 08/05/19 Rx tablet bumetanide 4 mg PO QAM 02/27/19 08/05/19 History potassium chloride 10 meq PO BID 02/27/19 08/05/19 History digoxin 125 mcg (0.125 mg) tablet 125 mcg PO Q2D #45 tab 03/19/19 08/05/19 Rx amiodarone 200 mg tablet 200 mg PO BID #180 tab 05/16/19 08/05/19 Rx lorazepam 0.5 mg tablet 0.5 mg PO DAILY PRN #30 tab 07/25/19 08/05/19 Rx bumetanide 2 mg PO .DAILY@LUNCH PRN 08/05/19 08/05/19 History cholecalciferol (vitamin D3) 125 mcg PO 2XWK 08/05/19 08/05/19 History tramadol 50 mg PO Q6H PRN 08/05/19 08/05/19 History warfarin 2.5 mg PO USEASDIRECTD 08/05/19 08/05/19 History Past Med/Surg History Medical History (Updated 08/05/19 @ 22:03 by Juliann Saleem PA-C) Anxiety (Inactive) Atrial fibrillation, chronic (Chronic) CAD (coronary artery disease) (Chronic) stenting to LAD in 1994 and 1996 stenting to RCA and LAD in 2007 CKD (chronic kidney disease) Congestive heart failure (Resolved) Depression with anxiety (Chronic) Diabetes mellitus type II, controlled (Chronic) Diabetic neuropathy (Chronic) Dyslipidemia (Chronic) Gout HTN (hypertension) (Chronic) Ischemic dilated cardiomyopathy (Inactive) FDC current use of anticoagulant (Chronic) warfarin daily Myocardial Infarction (Resolved) 1989. CARDIAC CATH WITH 2 STENTS ANTOINETTE on CPAP (Chronic) Systolic and diastolic CHF, chronic (Chronic) Surgical History AICD (automatic cardioverter/defibrillator) present (Chronic) placed on 10/24/17 [employer] DEVICE. LAST CHECKED [address] RIGGS/[facility] OFFICE. PLACED IN OCTOBER [address] [facility] History of bowel resection (Resolved) MASSIVE POLPYS History of cardiac cath (Inactive) 1989 --> X2 STENTS. BARE METAL STENTS ~1992 --> X2 STENTS. DRUG ELUTING STENTS. History of cataract surgery (Resolved) BILATERAL History of colonoscopy (Inactive) History of heart artery stent (Resolved) History of partial colectomy (Resolved) "[facility]/ ilieorectal anast/ multiple polyps 2008" Stented coronary artery (Inactive) "stents x 4 to RCA and LAD 1997" Social History Preferred Language: Estonian Communication Ability: Effective Improvement Leader Required: No Beliefs That Will Affect Care: None marital status: Current Living Situation: Spouse Feels Safe at Home: Yes Smoking Status: Never smoker Second Hand Exposure: No ; Hx Alcohol Use: No Hx Substance Use: No Review of Systems Review of Systems: All systems reviewed & are unremarkable except as noted in HPI & below Physical Exam Constitutional: WD/WN, vitals as above + obese Eyes: PERRL, conjunctivae normal, anicteric sclerae ENMT: Ears: no hearing impairment Neck: trachea midline, no thyromegaly Respiratory: normal respiratory effort, lungs clear to auscultation Cardiovascular: RRR, no murmur, no edema Gastrointestinal (Abdomen): normal bowel sounds, soft, nontender, no hepatosplenomegaly Inspection/Auscultation: abdomen not distended Musculoskeletal: Trace to 1+ pitting edema B/L LE. Skin: Venous stasis dermatitis b/l LE Neurologic: CN's II-XI intact bilaterally Psychiatric: A+Ox3, euthymic affect Results & Data Results & Data ([facility]) Vital Signs (Past 12 Hours) Vital Signs Temp Pulse Resp BP Pulse Ox 08/05/19 21:00 64 21 142/60 H 94 08/05/19 20:00 68 13 136/59 L 92 08/05/19 19:51 70 20 107/45 L 99 08/05/19 19:30 64 22 114/61 98 08/05/19 19:10 72 08/05/19 19:00 65 18 126/47 L 99 08/05/19 17:44 36.5 C 61 20 109/40 L 96 Laboratory Results Laboratory Results - last 24 hr 08/05/19 08/05/19 08/05/19 18:40 18:40 18:40 WBC 12.69 H RBC 2.04 L Hgb 6.7 L* Hct 21.0 L MCV 102.9 H MCH 32.8 MCHC 31.9 L RDW Std Deviation 63.1 H RDW Coeff of Joe 19.8 H Plt Count 178 MPV 9.0 Absolute Nucleated RBC 0.49 H Nucleated RBC % (auto) 3.8 Neutrophils % (Manual) 92.2 Lymphocytes % (Manual) 5.2 Monocytes % (Manual) 1.7 Blast Cells % (Manual) 0.9 Neutrophils # (Manual) 11.70 H Total Absolute Neuts 11.70 H Lymphocytes # (Manual) 0.66 L Total Abs Lymphocytes 0.66 L Monocytes # (Manual) 0.22 Blast Cells # (Man) 0.11 H Blood Smear Review Pending Polychromasia 1+ Hypochromasia Present Ovalocytes 1+ Haptoglobin PT > 90.0 H INR > 9.7 H* APTT 59.6 H* PTT Ratio 2.1 Sodium 137 Potassium 3.8 Chloride 99 Carbon Dioxide 29 Anion Gap 9.0 BUN 60 H Creatinine 1.55 H Est Cr Clr Drug Dosing 55.1 Est GFR ( Amer) 52.2 Est GFR (Non-Af Amer) 45.0 BUN/Creatinine Ratio 38.7 H Glucose 72 Calcium 8.0 L Phosphorus 3.4 Magnesium 2.1 Iron TIBC Transferrin Ferritin Total Bilirubin 0.6 AST 22 ALT 27 Alkaline Phosphatase 69 Lactate Dehydrogenase Troponin I 0.024 NT-Pro-B Natriuret Pep 1783 H Total Protein 6.0 L Albumin 2.8 L Globulin 3.2 Albumin/Globulin Ratio 0.9 Lipase 135 Vitamin B12 Folate TSH 4.550 H Free T4 1.29 Blood Type Antibody Screen Crossmatch 08/05/19 08/05/19 08/05/19 19:41 19:41 19:41 WBC RBC Hgb Hct MCV MCH MCHC RDW Std Deviation RDW Coeff of Joe Plt Count MPV Absolute Nucleated RBC Nucleated RBC % (auto) Neutrophils % (Manual) Lymphocytes % (Manual) Monocytes % (Manual) Blast Cells % (Manual) Neutrophils # (Manual) Total Absolute Neuts Lymphocytes # (Manual) Total Abs Lymphocytes Monocytes # (Manual) Blast Cells # (Man) Blood Smear Review Polychromasia Hypochromasia Ovalocytes Haptoglobin Pending PT INR APTT PTT Ratio Sodium Potassium Chloride Carbon Dioxide Anion Gap BUN Creatinine Est Cr Clr Drug Dosing Est GFR ( Amer) Est GFR (Non-Af Amer) BUN/Creatinine Ratio Glucose Calcium Phosphorus Magnesium Iron TIBC Transferrin Ferritin Total Bilirubin AST ALT Alkaline Phosphatase Lactate Dehydrogenase Troponin I NT-Pro-B Natriuret Pep Total Protein Albumin Globulin Albumin/Globulin Ratio Lipase Vitamin B12 438 Folate 14.31 TSH Free T4 Blood Type AB Positive Antibody Screen NEGATIVE Crossmatch See Detail 08/05/19 08/05/19 08/05/19 19:41 19:41 19:41 WBC RBC Hgb Hct MCV MCH MCHC RDW Std Deviation RDW Coeff of Joe Plt Count MPV Absolute Nucleated RBC Nucleated RBC % (auto) Neutrophils % (Manual) Lymphocytes % (Manual) Monocytes % (Manual) Blast Cells % (Manual) Neutrophils # (Manual) Total Absolute Neuts Lymphocytes # (Manual) Total Abs Lymphocytes Monocytes # (Manual) Blast Cells # (Man) Blood Smear Review Polychromasia Hypochromasia Ovalocytes Haptoglobin PT INR APTT PTT Ratio Sodium Potassium Chloride Carbon Dioxide Anion Gap BUN Creatinine Est Cr Clr Drug Dosing Est GFR ( Amer) Est GFR (Non-Af Amer) BUN/Creatinine Ratio Glucose Calcium Phosphorus Magnesium Iron 60 TIBC 318 Transferrin 250 Ferritin 78.3 Total Bilirubin AST ALT Alkaline Phosphatase Lactate Dehydrogenase 218 Troponin I NT-Pro-B Natriuret Pep Total Protein Albumin Globulin Albumin/Globulin Ratio Lipase Vitamin B12 Cancelled Folate TSH Free T4 Blood Type Antibody Screen Crossmatch Diagnostic Findings CXR: IMPRESSION: 1. Cardiomegaly and AICD. There is no radiographic evidence of congestive failure. 2. No airspace consolidation or large pleural effusion is identified. CT Abd/Pelvis: IMPRESSION: 1. No bowel obstruction or bowel wall thickening. 2. Prior partial colectomy with enterocolic anastomosis. 3. Pathologically enlarged lymph nodes of the inguinal chains appear stable. No new or progressive adenopathy. A right inguinal lymph node appears to have been previously biopsied. 4. New small pleural effusions with bibasilar atelectasis. 5. Marked cardiomegaly with unchanged partially imaged pericardial effusion which is at least moderate in size. 6. Asymmetric cortical thinning with mild atrophy of the right kidney is redemonstrated along with right greater than left perinephric stranding and right pelvocaliectasis. Correlate with urinalysis to exclude ascending infectious etiology. This finding could be correlated with a nonemergent follow- up CT urogram as a urothelial lesion could have a similar appearance. 7. Cholelithiasis. 8. Additional findings as above. Code Status & VTE Plan VTE Prophylaxis Plan VTE Prophylaxis will be ordered: No Supervising Physician Co-Signing Physician Notes I, Dr. Esau Le, have seen and examined the patient Sathya Smith with physician respiratory therapy assistant and would like to comment that on Physical Exam General: speaks comfortably and in full sentences, Awake and alert Heart: at time of exam, the heart rate sounds regular rate Lung: clear to auscultation bilaterally, no wheezing, breathing on room air Abdomen: soft, nontender, positive bowel sounds, chronic dark skin changes of abdomen due to diabetes as per patient Extremities: chronic darken skin change, some edema of lower extremities ASSESSMENT and PLAN ACUTE BLOOD LOSS ANEMIA SECONDARY TO COUMADIN USE, SUPRATHERAPEUTIC INR TYPE 2 DIABETES MELLITUS WITH NURSING HOME CURRENT USE OF INSULIN AICD (AUTOMATIC CARDIOVERTER/DEFIBRILLATOR PRESENT) CHRONIC SYSTOLIC AND DIASTOLIC CONGESTIVE HEART FAILURE ISCHEMIC CARDIOMYOPATHY RIGHT HIP PAIN -This a patient with multiple cardiovascular conditions who has been following with [facility] Cardiology and more pertinently on ant-arrhythmic medications including amiodarone and systemic anticoagulation with warfarin. He reports no recent changes to home medications but he is found to have INR above 9 with hemoglobin 6.7 suggestive of acute blood loss anemia from Coumadin use. Patient may not be taking as much leafy green vegetables as part of diet. Amiodarone needs to be held because this medication can also increase INR -vitamin K 5 mg IV x 1 and 1 FFP to help with reversing the Coumadin. 1 unit of PRBC for the anemia. Trend the INR and CBC. Patient denies overt rectal bleed. Keep NPO for now. Send FOBT and obtain Gastrointestinal service consult in case patient has overt GI hemorrhage. -while NPO, reduce the home dose Lantus from 45 units qhs to 10 units BID and give sliding scale short acting insulin based on blood glucose -obtain [facility] cardiology consult for complicated cardiac history -patient was due for right hip pain evaluation with orthopedics as outpatient, consider inpatient orthopedic evaluation once INR and acute anemia resolves. Avoid NSAIDs for pain -agree with other plans as documented by physician respiratory therapy assistant -Full Code Status as per my discussion with patient and his Florecita [phone] -My colleague will be taking over the care of the patient as consult service hospitalist starting on 08/06/2019 (1) CAD (coronary artery disease) Associated angina: without angina Coronary Disease-Associated Artery/Lesion type: [place] artery [place] vs. 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
--- NOTE | 2019-08-05 22:30 | Emergency Department Note ---
Impression & Plan Symptomatic anemia, Atrial fibrillation, chronic, AICD (automatic cardioverter/defibrillator) present, Ischemic cardiomyopathy, CKD (chronic kidney disease) ED Provider Note NAME: EUSEBIA HOWE JR AGE: 69 SEX: M ARRIVES VIA: Ambulance INFORMANT: Patient, ED PROVIDER(S): Jose L Javed MD CHIEF COMPLAINT: Chest pain PLAN: Disposition: Admit MEDICAL DECISION MAKING: The patient is a pleasant 69-year-old gentleman with a past medical history of A. fib on Coumadin, history of chronic systolic heart failure secondary to ICM, status post AICD, CAD history of PCI, valvular disease, type 2 diabetes who presents emergency department for evaluation of acute substernal chest pain that lasted 30 seconds when he was exerting himself walking to work at [employer], occurs in the setting of feeling slightly dizzy/vertiginous when he took a meclizine at home. Upon arrival the patient reports his symptoms have resolved and he feels back to his baseline. Otherwise, the patient denies any recent illness including cough, congestion, shortness of breath, nausea, vomiting, diarrhea. Patient denies any bloody or black stools. He reports his last INR check was 1 month ago and was within normal range. On arrival the patient is fatigued appearing but no acute distress, afebrile stable vital signs. The patient appears clinically dry. He has a slight pallor to his skin. He has no focal neuro deficits. EKG demonstrates A. fib without overt acute ischemia. Chest x- ray negative for acute process. WBC 12.6, nonspecific. H/H 6.7/21 which is down from a hemoglobin of 14 in February 2019. MCV of 102. Platelets within normal limits. INR is supratherapeutic greater than 9.7. Creatinine 1.5 within prior range of values in the setting of a history of CKD. Electrolytes and LFTs unremarkable. Troponin 0.024 within normal limits. BNP 1700 which is approximate 2 prior values. Given the patient denies any bloody or black stools rectal exam was deferred with plan to Hemoccult stools. 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 Given he has no evidence of active hemorrhage reversal of INR initiated with dose of IV vitamin K for now. Patient is agreeable with plan for admission. CT the abdomen pelvis performed and demonstrates no acute process. There is suggestion of perinephric stranding though patient denies any urinary symptoms. Patient was evaluated by Dr. Le, [facility] hospitalist, who will admit the patient for further management. Triage Nursing notes reviewed and agree them. Prior medical records reviewed Vital Signs: reviewed and remarkable for no significant abnormalities Differential diagnosis: Cardiac ischemia, aortic dissection, pulmonary embolism, pneumothorax, pneumonia, pericarditis, myocarditis, esophageal rupture, GERD, cholecystitis, pancreatitis, musculoskeletal, as well as other pathologies. ER treatment provided: See below. Diagnostics interpreted by me: ECG: Atrial fibrillation, 65 bpm, normal axis, no ectopy, no overt ST elevation or depression, QTC 443, QRS 92. Cardiac Monitoring: An order for continuous cardiac monitoring was placed and demonstrated Atrial fibrillation, 65 bpm, no ectopy. Laboratory studies: See below Imaging studies: SINGLE VIEW CHEST CLINICAL HISTORY: Atypical chest pain. FINDINGS: An AP, portable, upright chest radiograph is compared to study dated 02/27/2019. Correlation is made with chest CT dated 08/06/2017 A single lead cardiac AICD is unchanged in position. The heart is markedly enlarged and there is atherosclerotic calcification of the thoracic aorta. Density along the right cardiac border is consistent with a pericardial cyst when correlated with prior CT scans. The pulmonary vasculature is noncongested. There is bibasilar atelectasis. No airspace consolidation or large pleural effusion is identified. No pneumothorax is seen. The skeletal structures are osteopenic. The bony thorax is grossly intact. IMPRESSION: 1. Cardiomegaly and AICD. There is no radiographic evidence of congestive failure. 2. No airspace consolidation or large pleural effusion is identified. -- ABDOMEN AND PELVIS CT WITHOUT CONTRAST CT DOSE: 1413.72 mGy.cm HISTORY: Acute chest pain with anemia Chest pain, anemia TECHNIQUE: Multiaxial CT images of the abdomen and pelvis were performed without contrast. A dose lowering technique was utilized adhering to the principles of ALARA. COMPARISON STUDY: CT abdomen and pelvis 05/10/2018 FINDINGS: Small bilateral pleural effusions are new from comparison. Partially imaged moderate sized pericardial effusion appears unchanged. Marked cardiomegaly. Decreased attenuation of the cardiac blood pool suggests anemia. Partially imaged pacer leads over the right heart. Mild bibasilar densities suggest probable atelectasis. There is no pneumatosis or pneumoperitoneum. The spleen, pancreas and adrenal glands are unremarkable. Mildly contracted gallbladder with cholelithiasis. No biliary ductal dilation or CT evidence of acute cholecystitis. The unenhanced liver is unremarkable. Indeterminate 5 mm hypodensity of the hepatic dome is too small to characterize. There is asymmetric cortical thinning and atrophy of the right kidney. Additionally, there is asymmetric right-sided perinephric stranding which is most pronounced stranding the right renal pelvis. Mild pelvocaliectasis is unchanged. No renal or ureteral calculi. There may be a few tiny renal sinus cysts of the right kidney. Moderate urinary bladder wall thickening with small right posterior lateral diverticulum. Prostate appears surgically absent. Mild perivesicular stranding. Extensive calcified plaque the abdominal aorta and branch vessels without aneurysm. Bilateral inguinal chain adenopathy is redemonstrated measuring up to 3.5 x 1.6 cm on the right which appears generally stable from comparison. No new or progressive adenopathy. No bowel obstruction or bowel wall thickening. Colonic diverticulosis without acute diverticulitis. Postoperative changes of partial colectomy with enterocolic anastomosis within the mid central abdomen. Mild generalized body wall edema. There are a few subcentimeter nodular foci of the subcutaneous anterior abdominal wall suggestive of medicinal injection sites. Degenerative changes of the spine, pelvis and hips.. IMPRESSION: 1. No bowel obstruction or bowel wall thickening. 2. Prior partial colectomy with enterocolic anastomosis. 3. Pathologically enlarged lymph nodes of the inguinal chains appear stable. No new or progressive adenopathy. A right inguinal lymph node appears to have been previously biopsied. 4. New small pleural effusions with bibasilar atelectasis. 5. Marked cardiomegaly with unchanged partially imaged pericardial effusion which is at least moderate in size. 6. Asymmetric cortical thinning with mild atrophy of the right kidney is redemonstrated along with right greater than left perinephric stranding and right pelvocaliectasis. Correlate with urinalysis to exclude ascending infectious etiology. This finding could be correlated with a nonemergent follow- up CT urogram as a urothelial lesion could have a similar appearance. 7. Cholelithiasis. 8. Additional findings as above. [facility] HPI: The patient is a pleasant 69-year-old gentleman with a past medical history of A. fib on Coumadin, history of chronic systolic heart failure secondary to ICM, status post AICD, CAD history of PCI, valvular disease, type 2 diabetes who presents emergency department for evaluation of acute substernal chest pain that lasted 30 seconds when he was exerting himself walking to work at [employer], occurs in the setting of feeling slightly dizzy/vertiginous when he took a meclizine at home. Upon arrival the patient reports his symptoms have resolved and he feels back to his baseline. Otherwise, the patient denies any recent illness including cough, congestion, shortness of breath, nausea, vomiting, diarrhea. Patient denies any bloody or black stools. He reports his last INR check was 1 month ago and was within normal range. ROS: See above HPI for pertinent positives & negatives. A total of 10 systems reviewed and were otherwise negative. PAST MEDICAL HISTORY:See Below PAST SURGICAL HISTORY:See Below FAMILY HISTORY:See Below SOCIAL HISTORY:See Below HOME MEDICATIONS:See Below ALLERGIES:See Below VITALS:See Below PHYSICAL EXAMINATION: GENERAL: Awake, alert, fatigued-appearing, in no distress HENT: Normocephalic, atraumatic. Oropharynx with dry mucous membranes and otherwise unremarkable. . EYES: Normal conjunctiva. Sclera non-icteric. NECK: Supple. No nuchal rigidity. FROM. No JVD. RESPIRATORY: Clear to auscultation. CARDIAC: Regular rate, irregular rhythm. Extremities warm and well perfused. Pulses equal. ABDOMEN: Soft, non-distended. No tenderness to palpation. No rebound or guarding. No masses. RECTAL: Deferred. MUSCULOSKELETAL: Chest examination reveals no tenderness. The back is symmetrical on inspection without obvious abnormality. There is no CVA tenderness to palpation. No joint edema. LOWER EXTREMITIES: Calves are equal size bilaterally and non-tender. No edema. No discoloration. NEURO: Normal sensorium. No sensory or motor deficits noted. 5/5 strength and SILT x 4 extremities. Cerebellar function intact including [id number], alternating palms, [id number]. SKIN: Mild pallor. No rash or jaundice noted. ED COURSE: Critical Care: I have personally spent greater than 95 minutes of critical care time in the direct management of this patient. This includes bedside care, interpretation of diagnostic studies, and testing, discussion with consultants, patient, and family members, and other required patient management activities. This 95 minutes is in excess of all separately billable procedures. 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 CARDIAC CATH WITH 2 STENTS ANTOINETTE on CPAP (Chronic) Systolic and diastolic CHF, chronic (Chronic) Surgical History AICD (automatic cardioverter/defibrillator) present (Chronic) placed on 10/24/17 [employer] DEVICE. LAST CHECKED [address] DOMINGUEZ/[facility]. PLACED IN OCTOBER 2017 AT [facility] History of bowel resection (Resolved) MASSIVE POLPYS History of cardiac cath (Inactive) 1989 --> X2 STENTS. BARE METAL STENTS ~1992 --> X2 STENTS. DRUG ELUTING STENTS. History of cataract surgery (Resolved) BILATERAL History of colonoscopy (Inactive) History of heart artery stent (Resolved) History of partial colectomy (Resolved) "[facility]/ ilieorectal anast/ multiple polyps 2008" Stented coronary artery (Inactive) "stents x 4 to RCA and LAD 1997" Family History Mother Coronary heart disease Diabetes Father Lung cancer Sister Diabetes Social History Preferred Language: Wallisian Communication Ability: Effective Curriculum Designer Required: No Beliefs That Will Affect Care: None marital status: Current Living Situation: Spouse Other Information That Helps Us Care for You: No Feels Safe at Home: Yes Safety Concerns: Feels Safe At This Time Smoking Status: Never smoker Do You Dip or Chew Tobacco: No ; Second Hand Exposure: No ; Hx Alcohol Use: No Hx Substance Use: No Allergies Allergies Allergy/AdvReac Type Severity Reaction Status Date / Time Penicillins Allergy Mild childhood Verified 02/18/19 04:06 reaction codeine AdvReac Mild NAUSEA, Verified 02/18/19 04:06 LIGHTHEADEDNESS simvastatin AdvReac Mild makes him Verified 02/18/19 04:06 feel like he is high Home Meds Home Medications Medication Instructions Recorded Confirmed aspirin 81 mg PO QAM 01/25/18 08/05/19 atorvastatin 40 mg PO QPM 01/25/18 08/05/19 allopurinol 100 mg PO QAM 09/11/18 08/05/19 allopurinol 300 mg PO QAM 09/26/18 08/05/19 insulin glargine 100 unit/mL (3 45 units SUBCUT QAM ml 12/17/18 08/05/19 mL) subcutaneous pen metoprolol succinate 100 mg PO BID 01/21/19 08/05/19 nitroglycerin 0.4 mg SUBLINGUAL UD PRN 01/21/19 08/05/19 venlafaxine 150 mg PO BID 01/21/19 08/05/19 insulin aspart U-100 100 unit/mL 0 units SQ ACHS ml 01/30/19 08/05/19 (3 mL) subcutaneous pen meclizine 12.5 mg tablet 12.5 mg PO TID PRN 01/30/19 08/05/19 bumetanide 4 mg PO QAM 02/27/19 08/05/19 potassium chloride 10 meq PO BID 02/27/19 08/05/19 bumetanide 2 mg PO .DAILY@LUNCH PRN 08/05/19 08/05/19 cholecalciferol (vitamin D3) 125 mcg PO 2XWK 08/05/19 08/05/19 tramadol 50 mg PO Q6H PRN 08/05/19 08/05/19 warfarin 2.5 mg PO USEASDIRECTD 08/05/19 08/05/19 Previous Rx's Medication Instructions Recorded sacubitril 97 mg-valsartan 103 mg 1 tab PO BID 90 Days #180 tab 01/30/19 tablet digoxin 125 mcg (0.125 mg) tablet 125 mcg PO Q2D #45 tab 03/19/19 amiodarone 200 mg tablet 200 mg PO BID #180 tab 05/16/19 lorazepam 0.5 mg tablet 0.5 mg PO DAILY PRN #30 tab 07/25/19 Results & Data (ED) Vital Signs Vital Signs - 24 hr 08/05/19 17:44 08/05/19 19:00 08/05/19 19:10 Temperature 36.5 C Temperature Source Oral Pulse Rate 61 65 72 Pulse Rate from SpO2 Sensor Respiratory Rate 20 18 Respiratory Effort / Characteristics Non-Labored Spontaneous Respiratory Depth Normal Blood Pressure 109/40 L 126/47 L Blood Pressure Mean 63 76 Pulse Oximetry 96 99 Oxygen Delivery Method Room Air Room Air Sepsis Recent Fever Within 48 Hours No Sepsis Action Taken by Nursing No Action Required 08/05/19 19:30 08/05/19 19:51 08/05/19 20:00 Temperature Temperature Source Pulse Rate 64 70 68 Pulse Rate from SpO2 Sensor 69 Respiratory Rate 22 20 13 Respiratory Effort / Characteristics Respiratory Depth Blood Pressure 114/61 107/45 L 136/59 L Blood Pressure Mean 84 62 83 Pulse Oximetry 98 99 92 Oxygen Delivery Method Room Air Room Air Room Air Sepsis Recent Fever Within 48 Hours Sepsis Action Taken by Nursing 08/05/19 21:00 Temperature Temperature Source Pulse Rate 64 Pulse Rate from SpO2 Sensor 66 Respiratory Rate 21 Respiratory Effort / Characteristics Respiratory Depth Blood Pressure 142/60 H Blood Pressure Mean 70 Pulse Oximetry 94 Oxygen Delivery Method Room Air Sepsis Recent Fever Within 48 Hours Sepsis Action Taken by Nursing Laboratory Data Attestation: I reviewed the patient's lab results. Result diagrams: 08/06/19 02:22 08/05/19 18:40 Lab Results 08/05/19 08/05/19 08/05/19 Range/Units 18:40 18:40 18:40 WBC 12.69 H (4.8-10.8) K/uL RBC 2.04 L (4.7-6.1) M/uL Hgb 6.7 L* (14.0-18.0) g/dL Hct 21.0 L (42-52) % MCV 102.9 H (80-100) fL MCH 32.8 (25-34) pg MCHC 31.9 L (32-36) g/dL RDW Std Deviation 63.1 H (36.4-46.3) fL RDW Coeff of Joe 19.8 H (11.5-14.5) % Plt Count 178 (130-400) K/uL MPV 9.0 (7.4-10.4) fL Absolute Nucleated RBC 0.49 H (0-0) K/uL Nucleated RBC % (auto) 3.8 % Neutrophils % (Manual) 92.2 % Lymphocytes % (Manual) 5.2 % Monocytes % (Manual) 1.7 % Blast Cells % (Manual) 0.9 % Neutrophils # (Manual) 11.70 H (1.4-6.5) K/uL Total Absolute Neuts 11.70 H (1.4-6.5) K/uL Lymphocytes # (Manual) 0.66 L (1.2-3.4) K/uL Total Abs Lymphocytes 0.66 L (1.2-3.4) K/uL Monocytes # (Manual) 0.22 (0.11-0.59) K/uL Blast Cells # (Man) 0.11 H (0-0) K/uL Polychromasia 1+ Hypochromasia Present Ovalocytes 1+ PT > 90.0 H (9.0-12.0) Seconds INR > 9.7 H* (0.9-1.1) APTT 59.6 H* (21.0-31.0) Seconds PTT Ratio 2.1 Sodium 137 (136-145) mmol/L Potassium 3.8 (3.5-5.1) mmol/L Chloride 99 (98-107) mmol/L Carbon Dioxide 29 (21-32) mmol/L Anion Gap 9.0 (3-11) BUN 60 H (7-18) mg/dl Creatinine 1.55 H (0.6-1.4) mg/dl Est Cr Clr Drug Dosing 55.1 ml/min Est GFR ( Amer) 52.2 Est GFR (Non-Af Amer) 45.0 BUN/Creatinine Ratio 38.7 H (10-20) Glucose 72 (70-99) mg/dl Calcium 8.0 L (8.5-10.1) mg/dl Phosphorus 3.4 (2.5-4.9) mg/dl Magnesium 2.1 (1.8-2.4) mg/dl Iron (35-175) mcg/dl TIBC (250-450) mcg/dl Transferrin (200-360) mg/dl Ferritin (8-388) ng/ml Total Bilirubin 0.6 (0.2-1) mg/dl AST 22 (15-37) U/L ALT 27 (12-78) U/L Alkaline Phosphatase 69 (45-117) U/L Lactate Dehydrogenase (87-241) U/L Troponin I 0.024 (0-0.045) ng/ml NT-Pro-B Natriuret Pep 1783 H (0-900) pg/ml Total Protein 6.0 L (6.4-8.2) gm/dl Albumin 2.8 L (3.4-5.0) gm/dl Globulin 3.2 (2.5-4.0) gm/dl Albumin/Globulin Ratio 0.9 (0.9-2) Lipase 135 (73-393) U/L Vitamin B12 (211-911) pg/ml Folate (>5.38) ng/ml TSH 4.550 H (0.300-4.500) uIu/ml Free T4 1.29 (0.8-1.6) ng/dl Blood Type Antibody Screen Crossmatch 08/05/19 08/05/19 08/05/19 Range/Units 19:41 19:41 19:41 WBC (4.8-10.8) K/uL RBC (4.7-6.1) M/uL Hgb (14.0-18.0) g/dL Hct (42-52) % MCV (80-100) fL MCH (25-34) pg MCHC (32-36) g/dL RDW Std Deviation (36.4-46.3) fL RDW Coeff of Joe (11.5-14.5) % Plt Count (130-400) K/uL MPV (7.4-10.4) fL Absolute Nucleated RBC (0-0) K/uL Nucleated RBC % (auto) % Neutrophils % (Manual) % Lymphocytes % (Manual) % Monocytes % (Manual) % Blast Cells % (Manual) % Neutrophils # (Manual) (1.4-6.5) K/uL Total Absolute Neuts (1.4-6.5) K/uL Lymphocytes # (Manual) (1.2-3.4) K/uL Total Abs Lymphocytes (1.2-3.4) K/uL Monocytes # (Manual) (0.11-0.59) K/uL Blast Cells # (Man) (0-0) K/uL Polychromasia Hypochromasia Ovalocytes PT (9.0-12.0) Seconds INR (0.9-1.1) APTT (21.0-31.0) Seconds PTT Ratio Sodium (136-145) mmol/L Potassium (3.5-5.1) mmol/L Chloride (98-107) mmol/L Carbon Dioxide (21-32) mmol/L Anion Gap (3-11) BUN (7-18) mg/dl Creatinine (0.6-1.4) mg/dl Est Cr Clr Drug Dosing ml/min Est GFR ( Amer) Est GFR (Non-Af Amer) BUN/Creatinine Ratio (10-20) Glucose (70-99) mg/dl Calcium (8.5-10.1) mg/dl Phosphorus (2.5-4.9) mg/dl Magnesium (1.8-2.4) mg/dl Iron 60 (35-175) mcg/dl TIBC 318 (250-450) mcg/dl Transferrin 250 (200-360) mg/dl Ferritin 78.3 (8-388) ng/ml Total Bilirubin (0.2-1) mg/dl AST (15-37) U/L ALT (12-78) U/L Alkaline Phosphatase (45-117) U/L Lactate Dehydrogenase (87-241) U/L Troponin I (0-0.045) ng/ml NT-Pro-B Natriuret Pep (0-900) pg/ml Total Protein (6.4-8.2) gm/dl Albumin (3.4-5.0) gm/dl Globulin (2.5-4.0) gm/dl Albumin/Globulin Ratio (0.9-2) Lipase (73-393) U/L Vitamin B12 438 (211-911) pg/ml Folate 14.31 (>5.38) ng/ml TSH (0.300-4.500) uIu/ml Free T4 (0.8-1.6) ng/dl Blood Type AB Positive Antibody Screen NEGATIVE Crossmatch See Detail 08/05/19 08/05/19 Range/Units 19:41 19:41 WBC (4.8-10.8) K/uL RBC (4.7-6.1) M/uL Hgb (14.0-18.0) g/dL Hct (42-52) % MCV (80-100) fL MCH (25-34) pg MCHC (32-36) g/dL RDW Std Deviation (36.4-46.3) fL RDW Coeff of Joe (11.5-14.5) % Plt Count (130-400) K/uL MPV (7.4-10.4) fL Absolute Nucleated RBC (0-0) K/uL Nucleated RBC % (auto) % Neutrophils % (Manual) % Lymphocytes % (Manual) % Monocytes % (Manual) % Blast Cells % (Manual) % Neutrophils # (Manual) (1.4-6.5) K/uL Total Absolute Neuts (1.4-6.5) K/uL Lymphocytes # (Manual) (1.2-3.4) K/uL Total Abs Lymphocytes (1.2-3.4) K/uL Monocytes # (Manual) (0.11-0.59) K/uL Blast Cells # (Man) (0-0) K/uL Polychromasia Hypochromasia Ovalocytes PT (9.0-12.0) Seconds INR (0.9-1.1) APTT (21.0-31.0) Seconds PTT Ratio Sodium (136-145) mmol/L Potassium (3.5-5.1) mmol/L Chloride (98-107) mmol/L Carbon Dioxide (21-32) mmol/L Anion Gap (3-11) BUN (7-18) mg/dl Creatinine (0.6-1.4) mg/dl Est Cr Clr Drug Dosing ml/min Est GFR ( Amer) Est GFR (Non-Af Amer) BUN/Creatinine Ratio (10-20) Glucose (70-99) mg/dl Calcium (8.5-10.1) mg/dl Phosphorus (2.5-4.9) mg/dl Magnesium (1.8-2.4) mg/dl Iron (35-175) mcg/dl TIBC (250-450) mcg/dl Transferrin (200-360) mg/dl Ferritin (8-388) ng/ml Total Bilirubin (0.2-1) mg/dl AST (15-37) U/L ALT (12-78) U/L Alkaline Phosphatase (45-117) U/L Lactate Dehydrogenase 218 (87-241) U/L Troponin I (0-0.045) ng/ml NT-Pro-B Natriuret Pep (0-900) pg/ml Total Protein (6.4-8.2) gm/dl Albumin (3.4-5.0) gm/dl Globulin (2.5-4.0) gm/dl Albumin/Globulin Ratio (0.9-2) Lipase (73-393) U/L Vitamin B12 Cancelled (211-911) pg/ml Folate (>5.38) ng/ml TSH (0.300-4.500) uIu/ml Free T4 (0.8-1.6) ng/dl Blood Type Antibody Screen Crossmatch Administered Medications Pantoprazole Sodium 40 mg/ (Syringe) 10 mls @ 5 mls/min IV BID ASHLEIGH Stop: 09/05/19 00:51 Last Admin: 08/06/19 02:16 Dose: 5 mls/min Documented by: [id number] Metoprolol Succinate (Toprol Xl) 100 mg PO BID ASHLEIGH Stop: 09/05/19 00:51 Last Admin: 08/06/19 02:17 Dose: 100 mg Documented by: [id number] Sacubitril/Valsartan (Entresto 97/103mg) 1 tab PO BID ASHLEIGH Stop: 09/05/19 00:51 Last Admin: 08/06/19 02:17 Dose: 1 tab Documented by: [id number] Venlafaxine HCl (Effexor Extended Release) 150 mg PO BID ASHLEIGH Stop: 09/05/19 00:51 Last Admin: 08/06/19 02:17 Dose: 150 mg Documented by: [id number] Discontinued Medications Phytonadione 5 mg/ Sodium (Chloride) 50.5 mls @ 101 mls/hr IV ONE ONE Stop: 08/05/19 19:56 Last Infusion: 08/05/19 22:03 Dose: 0 mls/hr Documented by: [id number] Admin: 08/05/19 21:33 Dose: 101 mls/hr Documented by: [id number] Blood Pressure Blood Pressure Findings: Normal blood pressure Discharge Plan Visit Data *Final* Discharge Date/Time: 08/06/19 00:17 Chief Complaint: Cardiac Assessment Stated Complaint: CHEST PAIN, SOB ED Provider: Jose L Javed Discharge Problem: Symptomatic anemia, Atrial fibrillation, chronic, AICD (automatic cardioverter/defibrillator) present, Ischemic cardiomyopathy, CKD (chronic kidney disease) Patient Disposition: Admitted As Inpatient Discharge Instructions Interventions: ED Discharge Assessment Last Done: 08/06/19 00:17 Discharge Problem: CKD (chronic kidney disease) Qualifiers: Chronic kidney disease stage: unspecified stage Qualified Code(s): N18.9 - Chronic kidney disease, unspecified
[2019-08-06] MEDS ORDERED: MECLIZINE 12.5 MG TAB PO PRN (00:52)
[2019-08-06] MEDS ORDERED: DEXTROSE 50% 50 ML SYRINGE IV PRN (00:52)
[2019-08-06] MEDS ORDERED: GLUCAGON FOR INJ 1 MG VIAL SQ PRN (00:52)
[2019-08-06] MEDS ORDERED: CARBOHYDRATES FOR HYPOGLYCEMIA PO PRN (00:52)
[2019-08-06] MEDS ORDERED: GLUCOSE 10 TABS/TUBE PO PRN (00:52)
[2019-08-06] MEDS ORDERED: GLUCOSE 40% GEL 15 GM TUBE PO PRN (00:52)
[2019-08-06] MEDS: PANTOprazole 40 MG in SYRINGE 0 ML IV SCH ×3 (02:16→20:35)
[2019-08-06] MEDS: SACUBITRIL-VALSARTAN 97-103 MG TAB PO SCH ×3 (02:17→20:36)
[2019-08-06] MEDS: VENLAFAXINE HCL XR 150 MG CAPXR PO SCH ×3 (02:17→20:36)
[2019-08-06] MEDS: METOPROLOL SUCC 50MG EXT REL TAB PO SCH ×3 (02:17→20:35)
[2019-08-06 03:10] LABS: INR 4.5 (0.9-1.1); Prothrombin Time 43.5 Seconds (9.0-12.0)
[2019-08-06 03:14] LABS: Chol HDL Ratio 4; Cholesterol 67 mg/dl (0-200); HDL Cholesterol 19 mg/dl; LDL Cholesterol Calculated 21 mg/dl; Triglycerides 137 mg/dl (0-150); VLDL Cholesterol 27 mg/dl
[2019-08-06] MEDS ORDERED: SODIUM CHLORIDE 0.9% 250 ML IV PRN ×2 (03:48→08:05)
[2019-08-06 03:57] LABS: Appearance Urine Cloudy (Clear); Bilirubin Urine Negative (Negative); Blood Urine Trace (Negative); Color Urine Yellow; Glucose Urine UA Negative (Negative); Ketones Urine Negative (Negative); Leukocyte Esterase Urine 3+ (Negative); Nitrite Urine Negative (Negative); Protein Urine Negative (Negative); Specific Gravity Urine 1.014 (1.000-1.030); Urobilinogen Urine Negative (Negative); WBC Urine Automated >30 /hpf (0-5)
[2019-08-06] MEDS: ACETAMINOPHEN 325 MG TAB PO PRN ×2 (04:00→19:46)
[2019-08-06 04:16] LABS: Bacteria Urine Automated 1+ (Negative)
[2019-08-06] MEDS: INSULIN ASPART 100 UNITS/ML 3 ML PEN SC SCH ×4 (05:24→20:33)
[2019-08-06 06:25] LABS: Estimated Average Glucose 137 mg/dl; Hemoglobin A1C 6.4 % (4.5-5.6)
[2019-08-06 08:39] LABS: Albumin Level 2.9 gm/dl (3.4-5.0); BUN Creatinine Ratio 41.4 (10-20); Calcium 8.3 mg/dl (8.5-10.1); Creatinine Clr Calc Pharmacy 57.2 ml/min; Est GFR (African American) 55.6; Potassium 3.9 mmol/L (3.5-5.1)
[2019-08-06 08:43] LABS: Bilirubin,Total 1.5 mg/dl (0.2-1); Total Protein 5.9 gm/dl (6.4-8.2)
[2019-08-06 08:46] LABS: INR 2.3 (0.9-1.1); Prothrombin Time 23.2 Seconds (9.0-12.0)
--- NOTE | 2019-08-06 08:58 | Gastrointestinal Consultation ---
Date of Consultation August 06, 2019 Assessment & Plan (1) Symptomatic anemia: 69 year old male admitted with supratherapeutic INR > 10 w/ symptomatic anemia HGB < 7 requiring transfusion without evidence of GI bleeding adamantly denying black/bloody stool/emesis. PO PPI BID Trend HGB Monitor GI output Transfuse PRN per primary team Hold coumadin Correct INR Would recommend outpatient EGD/Colonoscopy within the next weeks which was ordered Will sign off. Recall if needed. Thank you for allowing us to participate in the care of this patient. Please call with any acute changes, questions or concerns. Please see addendum below with additional recommendation from my supervising physician. (2) Supratherapeutic INR: Supervising Physician Co-Signing Physician Notes I have seen and examined the patient and discussed the management with ROCK Sy. PE noteable for pacer/defibrillator, obese abdomen soft nt nd +bs, no rashes on skin, normal eomi. Labs reviewed/imaging reviewed. Agree with further plan of care as per Marily's plan of care. History of Present Illness Reason for Consultation: anemia Requesting Physician: Maria Alejandra Attending Physician: Danielle Verde MD History of Present Illness 69 year old male with history of dyslipidemia, T2DM, hyperparathyroidism, ANTOINETTE, HTN, afib on coumain who presents through the ED with progressive weakness, fatigue, SOB, fall at home admitted with anemia, HGB 6.4 with supratherapeutic INR > 10. GI asked to evaluate for anemia. Pt was seen and evaluated, chart reviewed. He notes a change in coumdin dosing about 2/3 months ago but normal INRs after. He also denies any change in his appetite or dietary changes in the past few months. No abdominal pain. No nausea, vomiting. Denies any change in his bowel habits. No black or bloody stools. Reports brown stools. Denies any abnormal bruising. No nose bleeds. No blood in urine. No fever, chills. Some SOB. No CP. S/P RBC transfusion x 2 units. Repeat HGB pending. CTAP 2019: No bowel obstruction or bowel wall thickening. Prior partial colectomy with enterocolic anastomosis. Pathologically enlarged lymph nodes of the inguinal chains appear stable. No new or progressive adenopathy. A right inguinal lymph node appears to have been previously biopsied. New small pleural effusions with bibasilar atelectasis. Marked cardiomegaly with unchanged partially imaged pericardial effusion which is at least moderate in size. Asymmetric cortical thinning with mild atrophy of the right kidney is redemonstrated along with right greater than left perinephric stranding and righ t pelvocaliectasis. Correlate with urinalysis to exclude ascending infectious etiology. This finding could be correlated with a nonemergent follow-up CT urogram as a urothelial lesion could have a similar appearance. Cholelithiasis. Additional findings as above. Allergies Allergy/AdvReac Type Severity Reaction Status Date / Time Penicillins Allergy Mild childhood Verified 02/18/19 04:06 reaction codeine AdvReac Mild NAUSEA, Verified 02/18/19 04:06 LIGHTHEADEDNESS simvastatin AdvReac Mild makes him Verified 02/18/19 04:06 feel like he is high Home Medications Home Medications Medication Instructions Recorded Confirmed Type aspirin 81 mg PO QAM 01/25/18 08/05/19 History atorvastatin 40 mg PO QPM 01/25/18 08/05/19 History allopurinol 100 mg PO QAM 09/11/18 08/05/19 History allopurinol 300 mg PO QAM 09/26/18 08/05/19 History insulin glargine 100 unit/mL (3 45 units SUBCUT QAM ml 12/17/18 08/05/19 History mL) subcutaneous pen metoprolol succinate 100 mg PO BID 01/21/19 08/05/19 History nitroglycerin 0.4 mg SUBLINGUAL UD PRN 01/21/19 08/05/19 History venlafaxine 150 mg PO BID 01/21/19 08/05/19 History insulin aspart U-100 100 unit/mL 0 units SQ ACHS ml 01/30/19 08/05/19 History (3 mL) subcutaneous pen meclizine 12.5 mg tablet 12.5 mg PO TID PRN 01/30/19 08/05/19 History sacubitril 97 mg-valsartan 103 mg 1 tab PO BID 90 Days #180 tab 01/30/19 08/05/19 Rx tablet bumetanide 4 mg PO QAM 02/27/19 08/05/19 History potassium chloride 10 meq PO BID 02/27/19 08/05/19 History digoxin 125 mcg (0.125 mg) tablet 125 mcg PO Q2D #45 tab 03/19/19 08/05/19 Rx amiodarone 200 mg tablet 200 mg PO BID #180 tab 05/16/19 08/05/19 Rx lorazepam 0.5 mg tablet 0.5 mg PO DAILY PRN #30 tab 07/25/19 08/05/19 Rx bumetanide 2 mg PO .DAILY@LUNCH PRN 08/05/19 08/05/19 History cholecalciferol (vitamin D3) 125 mcg PO 2XWK 08/05/19 08/05/19 History tramadol 50 mg PO Q6H PRN 08/05/19 08/05/19 History warfarin 2.5 mg PO USEASDIRECTD 08/05/19 08/05/19 History Patient History Medical History Anxiety (Inactive) Atrial fibrillation, chronic (Chronic) CAD (coronary artery disease) (Chronic) stenting to LAD in 1994 and 1996 stenting to RCA and LAD in 2007 CKD (chronic kidney disease) (Acute) Congestive heart failure (Resolved) Depression with anxiety (Chronic) Diabetes mellitus type II, controlled (Chronic) Diabetic neuropathy (Chronic) Dyslipidemia (Chronic) Gout HTN (hypertension) (Chronic) Ischemic dilated cardiomyopathy (Inactive) [facility]FP current use of anticoagulant (Chronic) warfarin daily Myocardial Infarction (Resolved) 1989. CARDIAC CATH WITH 2 STENTS ANTOINETTE on CPAP (Chronic) Systolic and diastolic CHF, chronic (Chronic) Surgical History AICD (automatic cardioverter/defibrillator) present (Chronic) placed on 10/24/17 [employer] DEVICE. LAST CHECKED [address] DOMINGUEZ/[facility]ICE. PLACED IN OCTOBER 2017 AT [facility] History of bowel resection (Resolved) MASSIVE POLPYS History of cardiac cath (Inactive) 1989 --> X2 STENTS. BARE METAL STENTS ~1992 --> X2 STENTS. DRUG ELUTING STENTS. History of cataract surgery (Resolved) BILATERAL History of colonoscopy (Inactive) History of heart artery stent (Resolved) History of partial colectomy (Resolved) "[facility]/ ilieorectal anast/ multiple polyps 2008" Stented coronary artery (Inactive) "stents x 4 to RCA and LAD 1997" Family History Mother Coronary heart disease Diabetes Father Lung cancer Sister Diabetes Social History Preferred Language: Estonian Communication Ability: Effective Residential Treatment Staff Required: No Beliefs That Will Affect Care: None marital status: Current Living Situation: Spouse Other Information That Helps Us Care for You: No Feels Safe at Home: Yes Safety Concerns: Feels Safe At This Time Smoking Status: Never smoker Do You Dip or Chew Tobacco: No ; Second Hand Exposure: No ; Hx Alcohol Use: No Hx Substance Use: No Review of Systems Constitutional: + fatigue; no fever, no chills and no weight loss Respiratory: + dyspnea; no cough Cardiovascular: + dyspnea; no chest pain Gastrointestinal: no abdominal pain, no bloating, no heartburn, no nausea, no vomiting, no coffee ground emesis, no hematemesis, no dysphagia, no change in bowel habits, no change in stools, no blood in stools and no melena Physical Exam Constitutional: well developed and well nourished; no acute distress Neck: trachea midline Respiratory: normal respiratory effort Cardiovascular: Rate/Rhythm: regular rate and regular rhythm Gastrointestinal (Abdomen): Percussion/Palpation: abdomen soft; abdomen nontender Skin: no rashes, warm and dry Results & Data ([facility]) Vital Signs (Past 12 Hours) Vital Signs Temp Pulse Pulse Resp BP BP Pulse Ox 08/06/19 08:40 36.7 C 60 18 110/50 L 99 08/06/19 07:42 61 08/06/19 06:35 36.8 C 65 18 102/65 96 08/06/19 06:20 62 18 145/74 H 98 08/06/19 06:04 36.7 C 65 16 92/38 L 98 08/06/19 04:53 36.5 C 66 18 109/66 96 08/06/19 03:57 36.3 C L 64 18 104/64 98 08/06/19 03:20 36.6 C 64 18 125/71 98 08/06/19 02:58 36.3 C L 64 18 111/48 L 99 08/06/19 01:01 36.4 C L 61 18 124/73 99 08/06/19 00:56 36.4 C L 62 19 124/73 99 08/05/19 23:49 36.7 C 65 20 132/53 L 100 08/05/19 23:15 65 19 119/55 L 94 08/05/19 23:00 65 17 137/59 L 97 08/05/19 22:49 36.9 C 65 17 137/59 L 96 08/05/19 22:45 66 20 144/61 H 97 08/05/19 22:25 63 18 120/63 94 08/05/19 22:20 65 20 124/65 94 08/05/19 22:19 36.9 C 65 20 124/65 94 08/05/19 22:15 68 18 129/61 96 08/05/19 22:10 70 18 124/56 L 95 08/05/19 22:05 68 24 129/48 L 95 08/05/19 22:04 36.9 C 62 19 121/54 L 97 08/05/19 22:00 62 16 121/54 L 96 08/05/19 21:55 68 21 130/57 L 96 08/05/19 21:50 67 23 126/61 95 08/05/19 21:47 36.7 C 64 17 126/59 L 95 08/05/19 21:45 71 21 126/59 L 94 08/05/19 21:40 67 18 139/53 L 96 08/05/19 21:37 66 19 139/53 L 97 08/05/19 21:00 64 21 142/60 H 94 Laboratory Results 08/06/19 08/06/19 08/06/19 Range/Units Unknown 08:32 07:55 WBC (4.8-10.8) K/uL RBC (4.7-6.1) M/uL Hgb (14.0-18.0) g/dL Hct (42-52) % MCV (80-100) fL MCH (25-34) pg MCHC (32-36) g/dL RDW Std Deviation (36.4-46.3) fL RDW Coeff of Joe (11.5-14.5) % Plt Count (130-400) K/uL MPV (7.4-10.4) fL Absolute Nucleated RBC (0-0) K/uL Nucleated RBC % (auto) % Neutrophils % (Manual) % Lymphocytes % (Manual) % Monocytes % (Manual) % Blast Cells % (Manual) % Neutrophils # (Manual) (1.4-6.5) K/uL Total Absolute Neuts (1.4-6.5) K/uL Lymphocytes # (Manual) (1.2-3.4) K/uL Total Abs Lymphocytes (1.2-3.4) K/uL Monocytes # (Manual) (0.11-0.59) K/uL Blast Cells # (Man) (0-0) K/uL Blood Smear Review Polychromasia Hypochromasia Ovalocytes Haptoglobin PT (9.0-12.0) Seconds INR (0.9-1.1) APTT (21.0-31.0) Seconds PTT Ratio Sodium 138 (136-145) mmol/L Potassium 3.9 (3.5-5.1) mmol/L Chloride 100 (98-107) mmol/L Carbon Dioxide 29 (21-32) mmol/L Anion Gap 8.0 (3-11) BUN 61 H (7-18) mg/dl Creatinine 1.47 H (0.6-1.4) mg/dl Est Cr Clr Drug Dosing 57.2 ml/min Est GFR ( Amer) 55.6 Est GFR (Non-Af Amer) 48.0 BUN/Creatinine Ratio 41.4 H (10-20) Glucose 97 (70-99) mg/dl POC Glucose 113 H (70-99) mg/dl Estimat Average Glucose mg/dl Hemoglobin A1c (4.5-5.6) % Calcium 8.3 L (8.5-10.1) mg/dl Phosphorus (2.5-4.9) mg/dl Magnesium (1.8-2.4) mg/dl Iron (35-175) mcg/dl TIBC (250-450) mcg/dl Transferrin (200-360) mg/dl Ferritin (8-388) ng/ml Total Bilirubin 1.5 H D (0.2-1) mg/dl AST 25 (15-37) U/L ALT 27 (12-78) U/L Alkaline Phosphatase 76 (45-117) U/L Lactate Dehydrogenase (87-241) U/L Troponin I (0-0.045) ng/ml NT-Pro-B Natriuret Pep (0-900) pg/ml Total Protein 5.9 L (6.4-8.2) gm/dl Albumin 2.9 L (3.4-5.0) gm/dl Globulin 3.0 (2.5-4.0) gm/dl Albumin/Globulin Ratio 1.0 (0.9-2) Triglycerides (0-150) mg/dl Cholesterol (0-200) mg/dl LDL Cholesterol, Calc mg/dl VLDL Cholesterol, Calc mg/dl HDL Cholesterol mg/dl Cholesterol/HDL Ratio Lipase (73-393) U/L Vitamin B12 (211-911) pg/ml Folate (>5.38) ng/ml TSH (0.300-4.500) uIu/ml Free T4 (0.8-1.6) ng/dl Urine Color Yellow Urine Appearance Cloudy A (Clear) Urine pH 6.0 (4.5-7.5) Ur Specific [place] 1.014 (1.000-1.030) Urine Protein Negative (Negative) Urine Glucose (UA) Negative (Negative) Urine Ketones Negative (Negative) Urine Blood Trace H (Negative) Urine Nitrite Negative (Negative) Urine Bilirubin Negative (Negative) Urine Urobilinogen Negative (Negative) Ur Leukocyte Esterase 3+ H (Negative) Urine WBC (Auto) >30 H (0-5) /hpf Urine RBC (Auto) 5-10 H (0-4) /hpf U Hyaline Cast (Auto) 1-5 (0-5) /lpf U Epithel Cells (Auto) 10-20 H (0-5) /lpf Urine Bacteria (Auto) 1+ H (Negative) Digoxin (0.8-2.0) ng/ml Blood Type Blood Type Recheck Antibody Screen Crossmatch 08/06/19 08/06/19 08/06/19 Range/Units 07:55 05:22 02:22 WBC (4.8-10.8) K/uL RBC (4.7-6.1) M/uL Hgb (14.0-18.0) g/dL Hct (42-52) % MCV (80-100) fL MCH (25-34) pg MCHC (32-36) g/dL RDW Std Deviation (36.4-46.3) fL RDW Coeff of Joe (11.5-14.5) % Plt Count (130-400) K/uL MPV (7.4-10.4) fL Absolute Nucleated RBC (0-0) K/uL Nucleated RBC % (auto) % Neutrophils % (Manual) % Lymphocytes % (Manual) % Monocytes % (Manual) % Blast Cells % (Manual) % Neutrophils # (Manual) (1.4-6.5) K/uL Total Absolute Neuts (1.4-6.5) K/uL Lymphocytes # (Manual) (1.2-3.4) K/uL Total Abs Lymphocytes (1.2-3.4) K/uL Monocytes # (Manual) (0.11-0.59) K/uL Blast Cells # (Man) (0-0) K/uL Blood Smear Review Polychromasia Hypochromasia Ovalocytes Haptoglobin PT 23.2 H (9.0-12.0) Seconds INR 2.3 H (0.9-1.1) APTT (21.0-31.0) Seconds PTT Ratio Sodium (136-145) mmol/L Potassium (3.5-5.1) mmol/L Chloride (98-107) mmol/L Carbon Dioxide (21-32) mmol/L Anion Gap (3-11) BUN (7-18) mg/dl Creatinine (0.6-1.4) mg/dl Est Cr Clr Drug Dosing ml/min Est GFR ( Amer) Est GFR (Non-Af Amer) BUN/Creatinine Ratio (10-20) Glucose (70-99) mg/dl POC Glucose 100 H (70-99) mg/dl Estimat Average Glucose mg/dl Hemoglobin A1c (4.5-5.6) % Calcium (8.5-10.1) mg/dl Phosphorus (2.5-4.9) mg/dl Magnesium (1.8-2.4) mg/dl Iron (35-175) mcg/dl TIBC (250-450) mcg/dl Transferrin (200-360) mg/dl Ferritin (8-388) ng/ml Total Bilirubin (0.2-1) mg/dl AST (15-37) U/L ALT (12-78) U/L Alkaline Phosphatase (45-117) U/L Lactate Dehydrogenase (87-241) U/L Troponin I (0-0.045) ng/ml NT-Pro-B Natriuret Pep (0-900) pg/ml Total Protein (6.4-8.2) gm/dl Albumin (3.4-5.0) gm/dl Globulin (2.5-4.0) gm/dl Albumin/Globulin Ratio (0.9-2) Triglycerides (0-150) mg/dl Cholesterol (0-200) mg/dl LDL Cholesterol, Calc mg/dl VLDL Cholesterol, Calc mg/dl HDL Cholesterol mg/dl Cholesterol/HDL Ratio Lipase (73-393) U/L Vitamin B12 (211-911) pg/ml Folate (>5.38) ng/ml TSH (0.300-4.500) uIu/ml Free T4 (0.8-1.6) ng/dl Urine Color Urine Appearance (Clear) Urine pH (4.5-7.5) Ur Specific [place] (1.000-1.030) Urine Protein (Negative) Urine Glucose (UA) (Negative) Urine Ketones (Negative) Urine Blood (Negative) Urine Nitrite (Negative) Urine Bilirubin (Negative) Urine Urobilinogen (Negative) Ur Leukocyte Esterase (Negative) Urine WBC (Auto) (0-5) /hpf Urine RBC (Auto) (0-4) /hpf U Hyaline Cast (Auto) (0-5) /lpf U Epithel Cells (Auto) (0-5) /lpf Urine Bacteria (Auto) (Negative) Digoxin (0.8-2.0) ng/ml Blood Type Blood Type Recheck AB Positive Antibody Screen Crossmatch 08/06/19 08/06/19 08/06/19 Range/Units 02:22 02:22 02:22 WBC (4.8-10.8) K/uL RBC (4.7-6.1) M/uL Hgb (14.0-18.0) g/dL Hct (42-52) % MCV (80-100) fL MCH (25-34) pg MCHC (32-36) g/dL RDW Std Deviation (36.4-46.3) fL RDW Coeff of Joe (11.5-14.5) % Plt Count (130-400) K/uL MPV (7.4-10.4) fL Absolute Nucleated RBC (0-0) K/uL Nucleated RBC % (auto) % Neutrophils % (Manual) % Lymphocytes % (Manual) % Monocytes % (Manual) % Blast Cells % (Manual) % Neutrophils # (Manual) (1.4-6.5) K/uL Total Absolute Neuts (1.4-6.5) K/uL Lymphocytes # (Manual) (1.2-3.4) K/uL Total Abs Lymphocytes (1.2-3.4) K/uL Monocytes # (Manual) (0.11-0.59) K/uL Blast Cells # (Man) (0-0) K/uL Blood Smear Review Polychromasia Hypochromasia Ovalocytes Haptoglobin PT 43.5 H (9.0-12.0) Seconds INR 4.5 H (0.9-1.1) APTT (21.0-31.0) Seconds PTT Ratio Sodium (136-145) mmol/L Potassium (3.5-5.1) mmol/L Chloride (98-107) mmol/L Carbon Dioxide (21-32) mmol/L Anion Gap (3-11) BUN (7-18) mg/dl Creatinine (0.6-1.4) mg/dl Est Cr Clr Drug Dosing ml/min Est GFR ( Amer) Est GFR (Non-Af Amer) BUN/Creatinine Ratio (10-20) Glucose (70-99) mg/dl POC Glucose (70-99) mg/dl Estimat Average Glucose 137 mg/dl Hemoglobin A1c 6.4 H (4.5-5.6) % Calcium (8.5-10.1) mg/dl Phosphorus (2.5-4.9) mg/dl Magnesium (1.8-2.4) mg/dl Iron (35-175) mcg/dl TIBC (250-450) mcg/dl Transferrin (200-360) mg/dl Ferritin (8-388) ng/ml Total Bilirubin (0.2-1) mg/dl AST (15-37) U/L ALT (12-78) U/L Alkaline Phosphatase (45-117) U/L Lactate Dehydrogenase (87-241) U/L Troponin I (0-0.045) ng/ml NT-Pro-B Natriuret Pep (0-900) pg/ml Total Protein (6.4-8.2) gm/dl Albumin (3.4-5.0) gm/dl Globulin (2.5-4.0) gm/dl Albumin/Globulin Ratio (0.9-2) Triglycerides 137 (0-150) mg/dl Cholesterol 67 (0-200) mg/dl LDL Cholesterol, Calc 21 mg/dl VLDL Cholesterol, Calc 27 mg/dl HDL Cholesterol 19 mg/dl Cholesterol/HDL Ratio 4 Lipase (73-393) U/L Vitamin B12 (211-911) pg/ml Folate (>5.38) ng/ml TSH (0.300-4.500) uIu/ml Free T4 (0.8-1.6) ng/dl Urine Color Urine Appearance (Clear) Urine pH (4.5-7.5) Ur Specific [place] (1.000-1.030) Urine Protein (Negative) Urine Glucose (UA) (Negative) Urine Ketones (Negative) Urine Blood (Negative) Urine Nitrite (Negative) Urine Bilirubin (Negative) Urine Urobilinogen (Negative) Ur Leukocyte Esterase (Negative) Urine WBC (Auto) (0-5) /hpf Urine RBC (Auto) (0-4) /hpf U Hyaline Cast (Auto) (0-5) /lpf U Epithel Cells (Auto) (0-5) /lpf Urine Bacteria (Auto) (Negative) Digoxin (0.8-2.0) ng/ml Blood Type Blood Type Recheck Antibody Screen Crossmatch 08/06/19 08/06/19 08/05/19 Range/Units 02:22 02:22 19:41 WBC (4.8-10.8) K/uL RBC (4.7-6.1) M/uL Hgb 6.4 L* (14.0-18.0) g/dL Hct (42-52) % MCV (80-100) fL MCH (25-34) pg MCHC (32-36) g/dL RDW Std Deviation (36.4-46.3) fL RDW Coeff of Joe (11.5-14.5) % Plt Count (130-400) K/uL MPV (7.4-10.4) fL Absolute Nucleated RBC (0-0) K/uL Nucleated RBC % (auto) % Neutrophils % (Manual) % Lymphocytes % (Manual) % Monocytes % (Manual) % Blast Cells % (Manual) % Neutrophils # (Manual) (1.4-6.5) K/uL Total Absolute Neuts (1.4-6.5) K/uL Lymphocytes # (Manual) (1.2-3.4) K/uL Total Abs Lymphocytes (1.2-3.4) K/uL Monocytes # (Manual) (0.11-0.59) K/uL Blast Cells # (Man) (0-0) K/uL Blood Smear Review Polychromasia Hypochromasia Ovalocytes Haptoglobin PT (9.0-12.0) Seconds INR (0.9-1.1) APTT (21.0-31.0) Seconds PTT Ratio Sodium (136-145) mmol/L Potassium (3.5-5.1) mmol/L Chloride (98-107) mmol/L Carbon Dioxide (21-32) mmol/L Anion Gap (3-11) BUN (7-18) mg/dl Creatinine (0.6-1.4) mg/dl Est Cr Clr Drug Dosing ml/min Est GFR ( Amer) Est GFR (Non-Af Amer) BUN/Creatinine Ratio (10-20) Glucose (70-99) mg/dl POC Glucose (70-99) mg/dl Estimat Average Glucose mg/dl Hemoglobin A1c (4.5-5.6) % Calcium (8.5-10.1) mg/dl Phosphorus (2.5-4.9) mg/dl Magnesium (1.8-2.4) mg/dl Iron (35-175) mcg/dl TIBC (250-450) mcg/dl Transferrin (200-360) mg/dl Ferritin (8-388) ng/ml Total Bilirubin (0.2-1) mg/dl AST (15-37) U/L ALT (12-78) U/L Alkaline Phosphatase (45-117) U/L Lactate Dehydrogenase (87-241) U/L Troponin I (0-0.045) ng/ml NT-Pro-B Natriuret Pep (0-900) pg/ml Total Protein (6.4-8.2) gm/dl Albumin (3.4-5.0) gm/dl Globulin (2.5-4.0) gm/dl Albumin/Globulin Ratio (0.9-2) Triglycerides (0-150) mg/dl Cholesterol (0-200) mg/dl LDL Cholesterol, Calc mg/dl VLDL Cholesterol, Calc mg/dl HDL Cholesterol mg/dl Cholesterol/HDL Ratio Lipase (73-393) U/L Vitamin B12 Cancelled (211-911) pg/ml Folate (>5.38) ng/ml TSH (0.300-4.500) uIu/ml Free T4 (0.8-1.6) ng/dl Urine Color Urine Appearance (Clear) Urine pH (4.5-7.5) Ur Specific [place] (1.000-1.030) Urine Protein (Negative) Urine Glucose (UA) (Negative) Urine Ketones (Negative) Urine Blood (Negative) Urine Nitrite (Negative) Urine Bilirubin (Negative) Urine Urobilinogen (Negative) Ur Leukocyte Esterase (Negative) Urine WBC (Auto) (0-5) /hpf Urine RBC (Auto) (0-4) /hpf U Hyaline Cast (Auto) (0-5) /lpf U Epithel Cells (Auto) (0-5) /lpf Urine Bacteria (Auto) (Negative) Digoxin 1.0 (0.8-2.0) ng/ml Blood Type Blood Type Recheck Antibody Screen Crossmatch 08/05/19 08/05/19 08/05/19 Range/Units 19:41 19:41 19:41 WBC (4.8-10.8) K/uL RBC (4.7-6.1) M/uL Hgb (14.0-18.0) g/dL Hct (42-52) % MCV (80-100) fL MCH (25-34) pg MCHC (32-36) g/dL RDW Std Deviation (36.4-46.3) fL RDW Coeff of Joe (11.5-14.5) % Plt Count (130-400) K/uL MPV (7.4-10.4) fL Absolute Nucleated RBC (0-0) K/uL Nucleated RBC % (auto) % Neutrophils % (Manual) % Lymphocytes % (Manual) % Monocytes % (Manual) % Blast Cells % (Manual) % Neutrophils # (Manual) (1.4-6.5) K/uL Total Absolute Neuts (1.4-6.5) K/uL Lymphocytes # (Manual) (1.2-3.4) K/uL Total Abs Lymphocytes (1.2-3.4) K/uL Monocytes # (Manual) (0.11-0.59) K/uL Blast Cells # (Man) (0-0) K/uL Blood Smear Review Polychromasia Hypochromasia Ovalocytes Haptoglobin PT (9.0-12.0) Seconds INR (0.9-1.1) APTT (21.0-31.0) Seconds PTT Ratio Sodium (136-145) mmol/L Potassium (3.5-5.1) mmol/L Chloride (98-107) mmol/L Carbon Dioxide (21-32) mmol/L Anion Gap (3-11) BUN (7-18) mg/dl Creatinine (0.6-1.4) mg/dl Est Cr Clr Drug Dosing ml/min Est GFR ( Amer) Est GFR (Non-Af Amer) BUN/Creatinine Ratio (10-20) Glucose (70-99) mg/dl POC Glucose (70-99) mg/dl Estimat Average Glucose mg/dl Hemoglobin A1c (4.5-5.6) % Calcium (8.5-10.1) mg/dl Phosphorus (2.5-4.9) mg/dl Magnesium (1.8-2.4) mg/dl Iron 60 (35-175) mcg/dl TIBC 318 (250-450) mcg/dl Transferrin 250 (200-360) mg/dl Ferritin 78.3 (8-388) ng/ml Total Bilirubin (0.2-1) mg/dl AST (15-37) U/L ALT (12-78) U/L Alkaline Phosphatase (45-117) U/L Lactate Dehydrogenase 218 (87-241) U/L Troponin I (0-0.045) ng/ml NT-Pro-B Natriuret Pep (0-900) pg/ml Total Protein (6.4-8.2) gm/dl Albumin (3.4-5.0) gm/dl Globulin (2.5-4.0) gm/dl Albumin/Globulin Ratio (0.9-2) Triglycerides (0-150) mg/dl Cholesterol (0-200) mg/dl LDL Cholesterol, Calc mg/dl VLDL Cholesterol, Calc mg/dl HDL Cholesterol mg/dl Cholesterol/HDL Ratio Lipase (73-393) U/L Vitamin B12 (211-911) pg/ml Folate (>5.38) ng/ml TSH (0.300-4.500) uIu/ml Free T4 (0.8-1.6) ng/dl Urine Color Urine Appearance (Clear) Urine pH (4.5-7.5) Ur Specific [place] (1.000-1.030) Urine Protein (Negative) Urine Glucose (UA) (Negative) Urine Ketones (Negative) Urine Blood (Negative) Urine Nitrite (Negative) Urine Bilirubin (Negative) Urine Urobilinogen (Negative) Ur Leukocyte Esterase (Negative) Urine WBC (Auto) (0-5) /hpf Urine RBC (Auto) (0-4) /hpf U Hyaline Cast (Auto) (0-5) /lpf U Epithel Cells (Auto) (0-5) /lpf Urine Bacteria (Auto) (Negative) Digoxin (0.8-2.0) ng/ml Blood Type AB Positive Blood Type Recheck Antibody Screen NEGATIVE Crossmatch See Detail 08/05/19 08/05/19 08/05/19 Range/Units 19:41 19:41 18:40 WBC (4.8-10.8) K/uL RBC (4.7-6.1) M/uL Hgb (14.0-18.0) g/dL Hct (42-52) % MCV (80-100) fL MCH (25-34) pg MCHC (32-36) g/dL RDW Std Deviation (36.4-46.3) fL RDW Coeff of Joe (11.5-14.5) % Plt Count (130-400) K/uL MPV (7.4-10.4) fL Absolute Nucleated RBC (0-0) K/uL Nucleated RBC % (auto) % Neutrophils % (Manual) % Lymphocytes % (Manual) % Monocytes % (Manual) % Blast Cells % (Manual) % Neutrophils # (Manual) (1.4-6.5) K/uL Total Absolute Neuts (1.4-6.5) K/uL Lymphocytes # (Manual) (1.2-3.4) K/uL Total Abs Lymphocytes (1.2-3.4) K/uL Monocytes # (Manual) (0.11-0.59) K/uL Blast Cells # (Man) (0-0) K/uL Blood Smear Review Polychromasia Hypochromasia Ovalocytes Haptoglobin Pending PT (9.0-12.0) Seconds INR (0.9-1.1) APTT (21.0-31.0) Seconds PTT Ratio Sodium 137 (136-145) mmol/L Potassium 3.8 (3.5-5.1) mmol/L Chloride 99 (98-107) mmol/L Carbon Dioxide 29 (21-32) mmol/L Anion Gap 9.0 (3-11) BUN 60 H (7-18) mg/dl Creatinine 1.55 H (0.6-1.4) mg/dl Est Cr Clr Drug Dosing 55.1 ml/min Est GFR ( Amer) 52.2 Est GFR (Non-Af Amer) 45.0 BUN/Creatinine Ratio 38.7 H (10-20) Glucose 72 (70-99) mg/dl POC Glucose (70-99) mg/dl Estimat Average Glucose mg/dl Hemoglobin A1c (4.5-5.6) % Calcium 8.0 L (8.5-10.1) mg/dl Phosphorus 3.4 (2.5-4.9) mg/dl Magnesium 2.1 (1.8-2.4) mg/dl Iron (35-175) mcg/dl TIBC (250-450) mcg/dl Transferrin (200-360) mg/dl Ferritin (8-388) ng/ml Total Bilirubin 0.6 (0.2-1) mg/dl AST 22 (15-37) U/L ALT 27 (12-78) U/L Alkaline Phosphatase 69 (45-117) U/L Lactate Dehydrogenase (87-241) U/L Troponin I 0.024 (0-0.045) ng/ml NT-Pro-B Natriuret Pep 1783 H (0-900) pg/ml Total Protein 6.0 L (6.4-8.2) gm/dl Albumin 2.8 L (3.4-5.0) gm/dl Globulin 3.2 (2.5-4.0) gm/dl Albumin/Globulin Ratio 0.9 (0.9-2) Triglycerides (0-150) mg/dl Cholesterol (0-200) mg/dl LDL Cholesterol, Calc mg/dl VLDL Cholesterol, Calc mg/dl HDL Cholesterol mg/dl Cholesterol/HDL Ratio Lipase 135 (73-393) U/L Vitamin B12 438 (211-911) pg/ml Folate 14.31 (>5.38) ng/ml TSH 4.550 H (0.300-4.500) uIu/ml Free T4 1.29 (0.8-1.6) ng/dl Urine Color Urine Appearance (Clear) Urine pH (4.5-7.5) Ur Specific [place] (1.000-1.030) Urine Protein (Negative) Urine Glucose (UA) (Negative) Urine Ketones (Negative) Urine Blood (Negative) Urine Nitrite (Negative) Urine Bilirubin (Negative) Urine Urobilinogen (Negative) Ur Leukocyte Esterase (Negative) Urine WBC (Auto) (0-5) /hpf Urine RBC (Auto) (0-4) /hpf U Hyaline Cast (Auto) (0-5) /lpf U Epithel Cells (Auto) (0-5) /lpf Urine Bacteria (Auto) (Negative) Digoxin (0.8-2.0) ng/ml Blood Type Blood Type Recheck Antibody Screen Crossmatch 08/05/19 08/05/19 Range/Units 18:40 18:40 WBC 12.69 H (4.8-10.8) K/uL RBC 2.04 L (4.7-6.1) M/uL Hgb 6.7 L* (14.0-18.0) g/dL Hct 21.0 L (42-52) % MCV 102.9 H (80-100) fL MCH 32.8 (25-34) pg MCHC 31.9 L (32-36) g/dL RDW Std Deviation 63.1 H (36.4-46.3) fL RDW Coeff of Joe 19.8 H (11.5-14.5) % Plt Count 178 (130-400) K/uL MPV 9.0 (7.4-10.4) fL Absolute Nucleated RBC 0.49 H (0-0) K/uL Nucleated RBC % (auto) 3.8 % Neutrophils % (Manual) 92.2 % Lymphocytes % (Manual) 5.2 % Monocytes % (Manual) 1.7 % Blast Cells % (Manual) 0.9 % Neutrophils # (Manual) 11.70 H (1.4-6.5) K/uL Total Absolute Neuts 11.70 H (1.4-6.5) K/uL Lymphocytes # (Manual) 0.66 L (1.2-3.4) K/uL Total Abs Lymphocytes 0.66 L (1.2-3.4) K/uL Monocytes # (Manual) 0.22 (0.11-0.59) K/uL Blast Cells # (Man) 0.11 H (0-0) K/uL Blood Smear Review Pending Polychromasia 1+ Hypochromasia Present Ovalocytes 1+ Haptoglobin PT > 90.0 H (9.0-12.0) Seconds INR > 9.7 H* (0.9-1.1) APTT 59.6 H* (21.0-31.0) Seconds PTT Ratio 2.1 Sodium (136-145) mmol/L Potassium (3.5-5.1) mmol/L Chloride (98-107) mmol/L Carbon Dioxide (21-32) mmol/L Anion Gap (3-11) BUN (7-18) mg/dl Creatinine (0.6-1.4) mg/dl Est Cr Clr Drug Dosing ml/min Est GFR ( Amer) Est GFR (Non-Af Amer) BUN/Creatinine Ratio (10-20) Glucose (70-99) mg/dl POC Glucose (70-99) mg/dl Estimat Average Glucose mg/dl Hemoglobin A1c (4.5-5.6) % Calcium (8.5-10.1) mg/dl Phosphorus (2.5-4.9) mg/dl Magnesium (1.8-2.4) mg/dl Iron (35-175) mcg/dl TIBC (250-450) mcg/dl Transferrin (200-360) mg/dl Ferritin (8-388) ng/ml Total Bilirubin (0.2-1) mg/dl AST (15-37) U/L ALT (12-78) U/L Alkaline Phosphatase (45-117) U/L Lactate Dehydrogenase (87-241) U/L Troponin I (0-0.045) ng/ml NT-Pro-B Natriuret Pep (0-900) pg/ml Total Protein (6.4-8.2) gm/dl Albumin (3.4-5.0) gm/dl Globulin (2.5-4.0) gm/dl Albumin/Globulin Ratio (0.9-2) Triglycerides (0-150) mg/dl Cholesterol (0-200) mg/dl LDL Cholesterol, Calc mg/dl VLDL Cholesterol, Calc mg/dl HDL Cholesterol mg/dl Cholesterol/HDL Ratio Lipase (73-393) U/L Vitamin B12 (211-911) pg/ml Folate (>5.38) ng/ml TSH (0.300-4.500) uIu/ml Free T4 (0.8-1.6) ng/dl Urine Color Urine Appearance (Clear) Urine pH (4.5-7.5) Ur Specific [place] (1.000-1.030) Urine Protein (Negative) Urine Glucose (UA) (Negative) Urine Ketones (Negative) Urine Blood (Negative) Urine Nitrite (Negative) Urine Bilirubin (Negative) Urine Urobilinogen (Negative) Ur Leukocyte Esterase (Negative) Urine WBC (Auto) (0-5) /hpf Urine RBC (Auto) (0-4) /hpf U Hyaline Cast (Auto) (0-5) /lpf U Epithel Cells (Auto) (0-5) /lpf Urine Bacteria (Auto) (Negative) Digoxin (0.8-2.0) ng/ml Blood Type Blood Type Recheck Antibody Screen Crossmatch
[2019-08-06] MEDS: BUMETANIDE 1 MG TAB PO SCH (09:01)
[2019-08-06] MEDS: allopurinoL 300 MG TAB PO SCH (09:04)
[2019-08-06] MEDS: allopurinoL 100 MG TAB PO SCH (09:04)
[2019-08-06] MEDS: INSULIN GLARGINE SOLOSTAR 100 UNITS/ML 3 ML PEN SC SCH ×2 (09:05→20:34)
--- NOTE | 2019-08-06 09:53 | Hospitalist Progress Note ---
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 Hgb 6.7 in the ED. Unknown source of bleeding. Likely GI INR >9. So far patient has received 2 PRBC, 1 FFP and vitamin K. INR reversed. INR is currently 2.3 According to anticoagulation clinic note from 07/11/2019, patient patient INR then was 3.2, he was advised to hold dose for the day before resuming home Coumadin dose. Coumadin dose is 2.5 mg on Monday and 1.25 mg on Monday. Continue to hold Coumadin for now GI evaluation noted. No plans for EGD or colonoscopy for now. However, will need to follow-up with GI for outpatient EGD/colonoscopy. We will monitor hemoglobin today (6) Leukocytosis: Slightly elevated WBC count on admission with left shift. Perinephric stranding noted on CT Abd/pelvis. UA noted Leukocytosis is resolved. This is likely reactive Also patient denies all urinary symptoms or pulmonary symptoms (7) Diabetes mellitus type II, controlled: Last A1C 7.7 01/29/19. Hemoglobin A1c today 6.4 Continue insulin regimen per protocol. Monitor blood glucose (8) Ischemic cardiomyopathy: (9) Systolic and diastolic CHF, chronic: (10) AICD (automatic cardioverter/defibrillator) present: (11) Atrial fibrillation, chronic: (12) CAD (coronary artery disease): (13) Ventricular tachycardia: Patient with extensive cardiac history. Discussed patient with child health associate Dr. Riggs He recommends continuing patient's home cardiac medication and holding patient's Coumadin for about a week on discharge so that patient can get GI scope within the next week Recommendations appreciated (14) HTN (hypertension): Continue home meds (15) Dyslipidemia: Continue atorvastatin (16) ANTOINETTE on CPAP: CPAP at bedtime (17) Osteoarthritis of right hip: Patient planned for consultation for right hip replacement this . Unlikely to happen due to current conditions. Will need reschedulin of this (18) DVT prophylaxis: No pharm agent at this time due to supratherapeutic INR. Ambulate Admission and Anticipated Discharge Date Admission Date: August 05, 2019 Subjective Patient seen and examined. Reports improvement in shortness of breath and fatigue. Denies any chest pain, palpitations, headache, dizziness Denies any melena, hematochezia, hemoptysis, epistaxis, hematuria Denies any abdominal pain, epigastric pain, nausea vomiting or diarrhea. Has got 2 units of blood so far and 1 FFP Physical Exam Constitutional: + well hydrated; no acute distress Eyes: PERRL Mild pallor ENMT: external ear and nose normal, oropharynx normal Respiratory: normal respiratory effort, lungs clear to auscultation Cardiovascular: Rate/Rhythm: + irregularly irregular S1 S2, no pedal edema Gastrointestinal (Abdomen): normal bowel sounds, soft, nontender, no hepatosplenomegaly Musculoskeletal: no cyanosis or clubbing, extremities motor strength 5/5 Neurologic: PERRL, EOMI, accommodation nl, no face palsy, no dysarthria Psychiatric: A+Ox3, euthymic affect Results & Data Results & Data ([facility]) Vital Signs (Past 12 Hours) Vital Signs Temp Pulse Pulse Resp BP BP Pulse Ox 08/06/19 08:40 36.7 C 60 18 110/50 L 99 08/06/19 07:42 61 08/06/19 06:35 36.8 C 65 18 102/65 96 08/06/19 06:20 62 18 145/74 H 98 08/06/19 06:04 36.7 C 65 16 92/38 L 98 08/06/19 04:53 36.5 C 66 18 109/66 96 08/06/19 03:57 36.3 C L 64 18 104/64 98 08/06/19 03:20 36.6 C 64 18 125/71 98 08/06/19 02:58 36.3 C L 64 18 111/48 L 99 08/06/19 01:01 36.4 C L 61 18 124/73 99 08/06/19 00:56 36.4 C L 62 19 124/73 99 08/05/19 23:49 36.7 C 65 20 132/53 L 100 08/05/19 23:15 65 19 119/55 L 94 08/05/19 23:00 65 17 137/59 L 97 08/05/19 22:49 36.9 C 65 17 137/59 L 96 08/05/19 22:45 66 20 144/61 H 97 08/05/19 22:25 63 18 120/63 94 08/05/19 22:20 65 20 124/65 94 08/05/19 22:19 36.9 C 65 20 124/65 94 08/05/19 22:15 68 18 129/61 96 08/05/19 22:10 70 18 124/56 L 95 08/05/19 22:05 68 24 129/48 L 95 08/05/19 22:04 36.9 C 62 19 121/54 L 97 08/05/19 22:00 62 16 121/54 L 96 08/05/19 21:55 68 21 130/57 L 96 Laboratory Results Short CBC 08/05/19 08/06/19 08/06/19 Range/Units 18:40 02:22 10:40 WBC 12.69 H 8.50 (4.8-10.8) K/uL Hgb 6.7 L* 6.4 L* 7.8 L (14.0-18.0) g/dL Hct 21.0 L 23.7 L (42-52) % Plt Count 178 171 (130-400) K/uL 08/06/19 Range/Units 13:50 WBC 9.99 (4.8-10.8) K/uL Hgb 8.2 L (14.0-18.0) g/dL Hct 25.3 L (42-52) % Plt Count 180 (130-400) K/uL BMP 08/05/19 08/06/19 18:40 07:55 Sodium 137 138 Potassium 3.8 3.9 Chloride 99 100 Carbon Dioxide 29 29 BUN 60 H 61 H Creatinine 1.55 H 1.47 H Glucose 72 97 Calcium 8.0 L 8.3 L Cardiac Enzymes 08/05/19 Range/Units 18:40 Troponin I 0.024 (0-0.045) ng/ml Liver Function 08/05/19 08/06/19 Range/Units 18:40 07:55 Total Bilirubin 0.6 1.5 H D (0.2-1) mg/dl AST 22 25 (15-37) U/L ALT 27 27 (12-78) U/L Alkaline Phosphatase 69 76 (45-117) U/L Albumin 2.8 L 2.9 L (3.4-5.0) gm/dl Urine 08/06/19 Range/Units Unknown Urine Color Yellow Urine Appearance Cloudy A (Clear) Urine pH 6.0 (4.5-7.5) Ur Specific [place] 1.014 (1.000-1.030) Urine Protein Negative (Negative) Urine Glucose (UA) Negative (Negative) (1) CAD (coronary artery disease) Associated angina: without angina Coronary Disease-Associated Artery/Lesion type: [place] artery [place] vs. transplanted heart: [place] heart Qualified Code(s): I25.10 - Atherosclerotic heart disease of [place] coronary artery without angina pectoris (2) Diabetes mellitus type II, controlled Chronic kidney disease stage: unspecified stage Diabetes mellitus complication detail: with chronic kidney disease Diabetes mellitus complication status: with kidney complications Diabetes mellitus content strategy lead insulin use: with content strategy lead use Qualified Code(s): E11.22 - Type 2 diabetes mellitus with diabetic chronic kidney disease; Z79.4 - skilled nursing (current) use of insulin (3) HTN (hypertension) Hypertension type: essential hypertension Qualified Code(s): I10 - Essential (primary) hypertension
--- NOTE | 2019-08-06 10:39 | Cardiology Consultation ---
Date of Consultation August 06, 2019 Assessment & Plan (1) Symptomatic anemia: 69 yo M with Hx HFrEF, ischemic cardiomyopathy with AICD, CAD, chronic AFib on warfarin, DM2, admitted for symptomatic anemia and found to have a supratherapeutic INR >10. 1. Symptomatic anemia - Hg 6.4 on admission, INR >10 - received 5 mg Vit K IV, 1 unit FFP, 2 units pRBC transfused - INR down to 2.3 at this time - In light of normal hepatic enzymes, no medication changes, no changes in diet, unsure at this time as to why INR was so high - transfuse to hg >8 for CAD - most likely bleeding into GI tract given loss of 8 units of blood between 02/2019 and now. Pt receives INR checks with Terrence Nguyen, need to acquire records to assess most recent INR and Hg/Hct. - defer to GI team for EGD/Colonoscopy to assess for AVM/source of bleeding. 2. Heart Failure with reduced Ejection Fraction - last echo in 2017, EF 25-30% - currently on Entresto 97-103 BID - + 1L fluids for admission with transfusions, no output measured though pt states he has been up to urinate at least 8 times - continue home bumex 4 mg PO AM - continue entresto - strict I/O, daily weights 3. Chronic Afib on Warfarin - Afib currently controlled with metoprolol 100 BID, amiodarone 200 BID - can restart warfarin when source of bleeding found, low daily risk of stroke 4. HTN - BP currently low, can consider holding metoprolol if not improving See hospitalist note for other management (2) Osteoarthritis of right hip: (3) Supratherapeutic INR: (4) Chronic venous insufficiency: (5) Ischemic cardiomyopathy: (6) Systolic and diastolic CHF, chronic: (7) AICD (automatic cardioverter/defibrillator) present: (8) CAD (coronary artery disease): (9) Atrial fibrillation, chronic: (10) ANTOINETTE on CPAP: (11) HTN (hypertension): Supervising Physician Co-Signing Physician Notes I have seen and examined the patient at the bedside agree with the documentation by Dr. Callahan. Briefly, the patient has been experiencing some symptoms of exercise intolerance, increasing fatigue, dizziness and fleeting chest discomfort prior to admission. He was noted to be severely anemic and have supratherapeutic INR. The patient did receive 2 units of blood since admission he claims to be feeling better. He is not currently short of breath. The chest pain he described lasted less than 2 minutes. It occurred at rest and was associated with some mild breathing difficulty. This occurred yesterday while waiting to begin work. It is not recurred. The patient did report an episode of syncope. However, on further questioning he did not lose consciousness. He was attempting to get up from a chair and had difficulty moving his right side which resulted in a fall. He did not lose consciousness. I reviewed his device interrogation performed earlier today. No new events or therapies. Recommendations: Patient appears to be well compensated with respect to his known ischemic cardiomyopathy. He should continue standard medical regimen as noted above. He can certainly discontinue his warfarin while waiting for an evaluation of occult gastrointestinal bleeding. Once the source of bleeding has either been identified or eliminated he can restart his warfarin. I think resumption of his amiodarone would be satisfactory. He was started on that medication several months ago and has not had significant arrangements in his degree of anticoagulation leading up to this event. History of Present Illness Reason for Consultation: supratherapeutic INR, acute anemia Attending Physician: Danielle Verde MD History of Present Illness Patient is a 69-year-old male with a past medical historyOf systolic and diastolic congestive heart failure, ischemic cardiomyopathy with AICD, diabetes type 2, hypertension who came to the emergency department yesterday for shortness of breath and fatigue. Of note emergency department labs showed a supratherapeutic INR of greater than 9.7 as well as a prolonged APTT and hemoglobin of 6.4. He denies any recent medication changes except for the addition of a daily tramadol to control his pain. He states he has been using 2.5 mg tabs of warfarin daily. Denies any recent diet changes. He denies having any black or tarry melanotic stool, red blood in the stool per rectum, hematuria, hematemesis. He denies having any chest pain chest tightness or chest pressure says overall his heart has felt well. He does note that a couple months ago he gained a significant amount of weight whereupon his weight went up to 260 pounds where he is normally 240 pounds. He denies any new or worsening peripheral edema of the hands or legs; states that most of his weight gain happens in his abdomen. He states that he has been feeling dizzy since 2 days prior to admission whereupon he fell while attempting to get up out of a chair at home. He denies having hit his head on anything and that he landed on the carpet. He denies having ever smoked, and says there was a 4 to 5-year period of time where he had 2-3 beers daily. He denies having ever been told that his liver enzymes were abnormal or having any hepatic disease he denies any IV drug use, or having been screened for hepatitis C. Allergies Allergy/AdvReac Type Severity Reaction Status Date / Time Penicillins Allergy Mild childhood Verified 02/18/19 04:06 reaction codeine AdvReac Mild NAUSEA, Verified 02/18/19 04:06 LIGHTHEADEDNESS simvastatin AdvReac Mild makes him Verified 02/18/19 04:06 feel like he is high Home Medications Home Medications Medication Instructions Recorded Confirmed Type aspirin 81 mg PO QAM 01/25/18 08/05/19 History atorvastatin 40 mg PO QPM 01/25/18 08/05/19 History allopurinol 100 mg PO QAM 09/11/18 08/05/19 History allopurinol 300 mg PO QAM 09/26/18 08/05/19 History insulin glargine 100 unit/mL (3 45 units SUBCUT QAM ml 12/17/18 08/05/19 History mL) subcutaneous pen metoprolol succinate 100 mg PO BID 01/21/19 08/05/19 History nitroglycerin 0.4 mg SUBLINGUAL UD PRN 01/21/19 08/05/19 History venlafaxine 150 mg PO BID 01/21/19 08/05/19 History insulin aspart U-100 100 unit/mL 0 units SQ ACHS ml 01/30/19 08/05/19 History (3 mL) subcutaneous pen meclizine 12.5 mg tablet 12.5 mg PO TID PRN 01/30/19 08/05/19 History sacubitril 97 mg-valsartan 103 mg 1 tab PO BID 90 Days #180 tab 01/30/19 08/05/19 Rx tablet bumetanide 4 mg PO QAM 02/27/19 08/05/19 History potassium chloride 10 meq PO BID 02/27/19 08/05/19 History digoxin 125 mcg (0.125 mg) tablet 125 mcg PO Q2D #45 tab 03/19/19 08/05/19 Rx amiodarone 200 mg tablet 200 mg PO BID #180 tab 05/16/19 08/05/19 Rx lorazepam 0.5 mg tablet 0.5 mg PO DAILY PRN #30 tab 07/25/19 08/05/19 Rx bumetanide 2 mg PO .DAILY@LUNCH PRN 08/05/19 08/05/19 History cholecalciferol (vitamin D3) 125 mcg PO 2XWK 08/05/19 08/05/19 History tramadol 50 mg PO Q6H PRN 08/05/19 08/05/19 History warfarin 2.5 mg PO USEASDIRECTD 08/05/19 08/05/19 History Patient History Medical History Anxiety (Inactive) Atrial fibrillation, chronic (Chronic) CAD (coronary artery disease) (Chronic) stenting to LAD in 1994 and 1996 stenting to RCA and LAD in 2007 CKD (chronic kidney disease) (Acute) Congestive heart failure (Resolved) Depression with anxiety (Chronic) Diabetes mellitus type II, controlled (Chronic) Diabetic neuropathy (Chronic) Dyslipidemia (Chronic) Gout HTN (hypertension) (Chronic) Ischemic dilated cardiomyopathy (Inactive) [facility] current use of anticoagulant (Chronic) warfarin daily Myocardial Infarction (Resolved) 1989. CARDIAC CATH WITH 2 STENTS ANTOINETTE on CPAP (Chronic) Systolic and diastolic CHF, chronic (Chronic) Surgical History AICD (automatic cardioverter/defibrillator) present (Chronic) placed on 10/24/17 [employer] DEVICE. LAST CHECKED [address] DOMINGUEZ/[facility]. PLACED IN OCTOBER 2017 AT [facility] History of bowel resection (Resolved) MASSIVE POLPYS History of cardiac cath (Inactive) 1989 --> X2 STENTS. BARE METAL STENTS ~1992 --> X2 STENTS. DRUG ELUTING STENTS. 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: No Beliefs That Will Affect Care: None marital status: Current Living Situation: Spouse Other Information That Helps Us Care for You: No Feels Safe at Home: Yes Safety Concerns: Feels Safe At This Time Smoking Status: Never smoker Do You Dip or Chew Tobacco: No ; Second Hand Exposure: No ; Hx Alcohol Use: No Hx Substance Use: No Review of Systems Constitutional: + fatigue and + weight gain; no fever Respiratory: no cough, no dyspnea, no dyspnea on exertion and no pain on inspiration Cardiovascular: + lightheadedness and + edema; no chest pain, no radiating jaw, neck or arm pain, no dyspnea at rest, no dyspnea on exertion, no orthopnea, no paroxysmal nocturnal dyspnea and no palpitations Gastrointestinal: + bloating; no abdominal pain, no nausea, no vomiting, no hematemesis, no change in stools, no blood in stools and no melena Genitourinary: no hematuria Neurologic: + falls and + dizziness Physical Exam Constitutional: WD/WN, vitals as above + obese Neck: normal visual inspection Respiratory: normal respiratory effort, lungs clear to auscultation no labored breathing, no retractions and no cough Auscultation: no crackles, no rales, no rhonchi and no wheezes Cardiovascular: Rate/Rhythm: regular rate and + irregularly irregular Heart Sounds: normal S1 and normal S2; no gallop, no murmur and no cardiac rub Palpation: no heave Extremities: normal capillary refill and + edema; no calf tenderness Gastrointestinal (Abdomen): Inspection/Auscultation: + abdomen distended Skin: chronic venous stasis skin changes from ankles to mid-durbin bilaterally, some swelling of fingers and hands bilaterally with purplish discoloration at tips Neurologic: moves all extremities Speech / Cognition: normal speech Results & Data ([facility]) Vital Signs (Past 12 Hours) Vital Signs Temp Pulse Pulse Resp BP BP Pulse Ox 08/06/19 08:40 36.7 C 60 18 110/50 L 99 08/06/19 07:42 61 08/06/19 06:35 36.8 C 65 18 102/65 96 08/06/19 06:20 62 18 145/74 H 98 08/06/19 06:04 36.7 C 65 16 92/38 L 98 08/06/19 04:53 36.5 C 66 18 109/66 96 08/06/19 03:57 36.3 C L 64 18 104/64 98 08/06/19 03:20 36.6 C 64 18 125/71 98 08/06/19 02:58 36.3 C L 64 18 111/48 L 99 08/06/19 01:01 36.4 C L 61 18 124/73 99 08/06/19 00:56 36.4 C L 62 19 124/73 99 08/05/19 23:49 36.7 C 65 20 132/53 L 100 08/05/19 23:15 65 19 119/55 L 94 08/05/19 23:00 65 17 137/59 L 97 08/05/19 22:49 36.9 C 65 17 137/59 L 96 08/05/19 22:45 66 20 144/61 H 97 Laboratory Results WBC 8.50 K/uL (4.8-10.8) 08/06/19 10:40 RBC 2.41 M/uL (4.7-6.1) L 08/06/19 10:40 Hgb 7.8 g/dL (14.0-18.0) L 08/06/19 10:40 Hct 23.7 % (42-52) L 08/06/19 10:40 MCV 98.3 fL (80-100) 08/06/19 10:40 MCH 32.4 pg (25-34) 08/06/19 10:40 MCHC 32.9 g/dL (32-36) 08/06/19 10:40 RDW Std Deviation 64.9 fL (36.4-46.3) H 08/06/19 10:40 RDW Coeff of Joe 21.8 % (11.5-14.5) H 08/06/19 10:40 Plt Count 171 K/uL (130-400) 08/06/19 10:40 MPV 9.2 fL (7.4-10.4) 08/06/19 10:40 Immature Gran % (Auto) 0.9 % 08/06/19 10:40 Neut % (Auto) 81.3 % 08/06/19 10:40 Lymph % (Auto) 4.9 % 08/06/19 10:40 [place] % (Auto) 12.4 % 08/06/19 10:40 Eos % (Auto) 0.4 % 08/06/19 10:40 Baso % (Auto) 0.1 % 08/06/19 10:40 Immature Gran # (Auto) 0.08 K/uL (0.00-0.02) H 08/06/19 10:40 Neut # (Auto) 6.91 K/uL (1.4-6.5) H 08/06/19 10:40 Lymph # (Auto) 0.42 K/uL (1.2-3.4) L 08/06/19 10:40 [place] # (Auto) 1.05 K/uL (0.11-0.59) H 08/06/19 10:40 Eos # (Auto) 0.03 K/uL (0-0.5) 08/06/19 10:40 Baso # (Auto) 0.01 K/uL (0-0.2) 08/06/19 10:40 Absolute Nucleated RBC 0.38 K/uL (0-0) H 08/06/19 10:40 Nucleated RBC % (auto) 4.5 % 08/06/19 10:40 Neutrophils % (Manual) 92.2 % 08/05/19 18:40 Lymphocytes % (Manual) 5.2 % 08/05/19 18:40 Monocytes % (Manual) 1.7 % 08/05/19 18:40 Blast Cells % (Manual) 0.9 % 08/05/19 18:40 Neutrophils # (Manual) 11.70 K/uL (1.4-6.5) H 08/05/19 18:40 Total Absolute Neuts 11.70 K/uL (1.4-6.5) H 08/05/19 18:40 Lymphocytes # (Manual) 0.66 K/uL (1.2-3.4) L 08/05/19 18:40 Total Abs Lymphocytes 0.66 K/uL (1.2-3.4) L 08/05/19 18:40 Monocytes # (Manual) 0.22 K/uL (0.11-0.59) 08/05/19 18:40 Blast Cells # (Man) 0.11 K/uL (0-0) H 08/05/19 18:40 Polychromasia 1+ 08/05/19 18:40 Hypochromasia Present 08/05/19 18:40 Ovalocytes 1+ 08/05/19 18:40 PT 23.2 Seconds (9.0-12.0) H 08/06/19 07:55 INR 2.3 (0.9-1.1) H 08/06/19 07:55 APTT 59.6 Seconds (21.0-31.0) H* 08/05/19 18:40 PTT Ratio 2.1 08/05/19 18:40 Sodium 138 mmol/L (136-145) 08/06/19 07:55 Potassium 3.9 mmol/L (3.5-5.1) 08/06/19 07:55 Chloride 100 mmol/L (98-107) 08/06/19 07:55 Carbon Dioxide 29 mmol/L (21-32) 08/06/19 07:55 Anion Gap 8.0 (3-11) 08/06/19 07:55 BUN 61 mg/dl (7-18) H 08/06/19 07:55 Creatinine 1.47 mg/dl (0.6-1.4) H 08/06/19 07:55 Est Cr Clr Drug Dosing 57.2 ml/min 08/06/19 07:55 Est GFR ( Amer) 55.6 08/06/19 07:55 Est GFR (Non-Af Amer) 48.0 08/06/19 07:55 BUN/Creatinine Ratio 41.4 (10-20) H 08/06/19 07:55 Glucose 97 mg/dl (70-99) 08/06/19 07:55 POC Glucose 113 mg/dl (70-99) H 08/06/19 08:32 Estimat Average Glucose 137 mg/dl 08/06/19 02:22 Hemoglobin A1c 6.4 % (4.5-5.6) H 08/06/19 02:22 Calcium 8.3 mg/dl (8.5-10.1) L 08/06/19 07:55 Phosphorus 3.4 mg/dl (2.5-4.9) 08/05/19 18:40 Magnesium 2.1 mg/dl (1.8-2.4) 08/05/19 18:40 Iron 60 mcg/dl (35-175) 08/05/19 19:41 TIBC 318 mcg/dl (250-450) 08/05/19 19:41 Transferrin 250 mg/dl (200-360) 08/05/19 19:41 Ferritin 78.3 ng/ml (8-388) 08/05/19 19:41 Total Bilirubin 1.5 mg/dl (0.2-1) H D 08/06/19 07:55 AST 25 U/L (15-37) 08/06/19 07:55 ALT 27 U/L (12-78) 08/06/19 07:55 Alkaline Phosphatase 76 U/L (45-117) 08/06/19 07:55 Lactate Dehydrogenase 218 U/L (87-241) 08/05/19 19:41 Troponin I 0.024 ng/ml (0-0.045) 08/05/19 18:40 NT-Pro-B Natriuret Pep 1783 pg/ml (0-900) H 08/05/19 18:40 Total Protein 5.9 gm/dl (6.4-8.2) L 08/06/19 07:55 Albumin 2.9 gm/dl (3.4-5.0) L 08/06/19 07:55 Globulin 3.0 gm/dl (2.5-4.0) 08/06/19 07:55 Albumin/Globulin Ratio 1.0 (0.9-2) 08/06/19 07:55 Triglycerides 137 mg/dl (0-150) 08/06/19 02:22 Cholesterol 67 mg/dl (0-200) 08/06/19 02:22 LDL Cholesterol, Calc 21 mg/dl 08/06/19 02:22 VLDL Cholesterol, Calc 27 mg/dl 08/06/19 02:22 HDL Cholesterol 19 mg/dl 08/06/19 02:22 Cholesterol/HDL Ratio 4 08/06/19 02:22 Lipase 135 U/L (73-393) 08/05/19 18:40 Vitamin B12 438 pg/ml (211-911) 08/05/19 19:41 Vitamin B12 Cancelled 08/05/19 19:41 Folate 14.31 ng/ml (>5.38) 08/05/19 19:41 TSH 4.550 uIu/ml (0.300-4.500) H 08/05/19 18:40 Free T4 1.29 ng/dl (0.8-1.6) 08/05/19 18:40 Urine Color Yellow 08/06/19 Unknown Urine Appearance Cloudy (Clear) A 08/06/19 Unknown Urine pH 6.0 (4.5-7.5) 08/06/19 Unknown Ur Specific [place] 1.014 (1.000-1.030) 08/06/19 Unknown Urine Protein Negative (Negative) 08/06/19 Unknown Urine Glucose (UA) Negative (Negative) 08/06/19 Unknown Urine Ketones Negative (Negative) 08/06/19 Unknown Urine Blood Trace (Negative) H 08/06/19 Unknown Urine Nitrite Negative (Negative) 08/06/19 Unknown Urine Bilirubin Negative (Negative) 08/06/19 Unknown Urine Urobilinogen Negative (Negative) 08/06/19 Unknown Ur Leukocyte Esterase 3+ (Negative) H 08/06/19 Unknown Urine WBC (Auto) >30 /hpf (0-5) H 08/06/19 Unknown Urine RBC (Auto) 5-10 /hpf (0-4) H 08/06/19 Unknown U Hyaline Cast (Auto) 1-5 /lpf (0-5) 08/06/19 Unknown U Epithel Cells (Auto) 10-20 /lpf (0-5) H 08/06/19 Unknown Urine Bacteria (Auto) 1+ (Negative) H 08/06/19 Unknown Digoxin 1.0 ng/ml (0.8-2.0) 08/06/19 02:22 Blood Type AB Positive 08/05/19 19:41 Blood Type Recheck AB Positive 08/06/19 02:22 Antibody Screen NEGATIVE 08/05/19 19:41 Crossmatch See Detail 08/05/19 19:41 Resident Activity Tracking Resident Involvement: Resident Care Provided Care Provided: Adult Hospital Medicine (1) CAD (coronary artery disease) Associated angina: without angina Coronary Disease-Associated Artery/Lesion type: [place] artery [place] vs. transplanted heart: [place] heart Qualified Code(s): I25.10 - Atherosclerotic heart disease of [place] coronary artery without angina pectoris (2) HTN (hypertension) Hypertension type: essential hypertension Qualified Code(s): I10 - Essential (primary) hypertension
[2019-08-06 10:51] LABS: Basophils # (auto) 0.01 K/uL (0-0.2); Basophils % (auto) 0.1 %; Eosinophils # (auto) 0.03 K/uL (0-0.5); Eosinophils % (auto) 0.4 %; Hematocrit (blood only) 23.7 % (42-52); Hemoglobin 7.8 g/dL (14.0-18.0); Immature Granulocytes # (auto) 0.08 K/uL (0.00-0.02); Immature Granulocytes % (auto) 0.9 %; Lymphocytes # (auto) 0.42 K/uL (1.2-3.4); Lymphocytes % (auto) 4.9 %; Mean Corpuscular Hemoglobin 32.4 pg (25-34); Mean Corpuscular Hgb Conc 32.9 g/dL (32-36); Mean Corpuscular Volume 98.3 fL (80-100); Mean Platelet Volume 9.2 fL (7.4-10.4); Monocytes # (auto) 1.05 K/uL (0.11-0.59); Monocytes % (auto) 12.4 %; Neutrophils # (auto) 6.91 K/uL (1.4-6.5); Neutrophils % (auto) 81.3 %; Nucleated RBC # (auto) 0.38 K/uL (0-0); Nucleated RBC % (auto) 4.5 %; Platelet Count 171 K/uL (130-400); RDW Coefficient of Variation 21.8 % (11.5-14.5); RDW Standard Deviation 64.9 fL (36.4-46.3); Red Blood Count 2.41 M/uL (4.7-6.1)
[2019-08-06 11:22] LABS: Anisocytosis Present; Polychromasia 1+
[2019-08-06 14:04] LABS: Hematocrit (blood only) 25.3 % (42-52); Hemoglobin 8.2 g/dL (14.0-18.0); Mean Corpuscular Hemoglobin 32.2 pg (25-34); Mean Corpuscular Hgb Conc 32.4 g/dL (32-36); Mean Corpuscular Volume 99.2 fL (80-100); Mean Platelet Volume 9.3 fL (7.4-10.4); Nucleated RBC # (auto) 0.48 K/uL (0-0); Nucleated RBC % (auto) 4.8 %; Platelet Count 180 K/uL (130-400); RDW Coefficient of Variation 22.3 % (11.5-14.5); RDW Standard Deviation 68.5 fL (36.4-46.3); Red Blood Count 2.55 M/uL (4.7-6.1); White Blood Count 9.99 K/uL (4.8-10.8)
[2019-08-06 14:24] LABS: INR 1.9 (0.9-1.1); Prothrombin Time 19.4 Seconds (9.0-12.0)
--- NOTE | 2019-08-06 15:42 | Electrocardiogram Report ---
Test Reason : Blood Pressure : / mmHG Vent. Rate : 065 BPM Atrial Rate : 110 BPM P-R Int : 000 ms QRS Dur : 092 ms QT Int : 426 ms P-R-T Axes : 000 075 269 degrees QTc Int : 443 ms Atrial fibrillation Low voltage QRS Cannot rule out Anteroseptal infarct (cited on or before 27-FEB-2019) Abnormal ECG When compared with ECG of 01-MAR-2019 06:58, QT has lengthened Confirmed by Dougie Riggs ([id number]) on 08/06/2019 3:42:20 PM Referred By: REFERRED SELF Confirmed By:Jean-Paul Riggs
[2019-08-06] MEDS ORDERED: Nursing to Pharmacy Communication ONE (15:46)
--- NOTE | 2019-08-06 15:51 | Electrocardiogram Report ---
Test Reason : Blood Pressure : / mmHG Vent. Rate : 063 BPM Atrial Rate : 056 BPM P-R Int : 000 ms QRS Dur : 094 ms QT Int : 422 ms P-R-T Axes : 000 074 -87 degrees QTc Int : 431 ms Atrial fibrillation Low voltage QRS Cannot rule out Anteroseptal infarct (cited on or before 27-FEB-2019) Abnormal ECG When compared with ECG of 05-AUG-2019 17:40, (unconfirmed) No significant change was found Confirmed by Dougie Riggs ([id number]) on 08/06/2019 3:51:02 PM Referred By: REFERRED SELF Confirmed By:Jean-Paul Riggs
[2019-08-06] MEDS ORDERED: DIGOXIN 0.125 MG TAB PO SCH (16:00)
[2019-08-06 18:31] LABS: INR 1.7 (0.9-1.1); Prothrombin Time 17.5 Seconds (9.0-12.0)
[2019-08-06] MEDS ORDERED: ATORVASTATIN 40 MG TAB PO SCH (21:00)
[2019-08-07 05:56] LABS: Hematocrit (blood only) 24.9 % (42-52); Hemoglobin 7.9 g/dL (14.0-18.0); Mean Corpuscular Hgb Conc 31.7 g/dL (32-36); Mean Corpuscular Volume 100.8 fL (80-100); Mean Platelet Volume 9.6 fL (7.4-10.4); Nucleated RBC # (auto) 0.54 K/uL (0-0); Nucleated RBC % (auto) 5.7 %; Platelet Count 205 K/uL (130-400); RDW Coefficient of Variation 22.7 % (11.5-14.5); RDW Standard Deviation 69.5 fL (36.4-46.3); Red Blood Count 2.47 M/uL (4.7-6.1); White Blood Count 9.46 K/uL (4.8-10.8)
[2019-08-07 06:32] LABS: BUN Creatinine Ratio 37.4 (10-20); Calcium 8.1 mg/dl (8.5-10.1); Est GFR (African American) 45.7; Est GFR (Non-African American) 39.4; Potassium 3.9 mmol/L (3.5-5.1)
[2019-08-07] MEDS: VENLAFAXINE HCL XR 150 MG CAPXR PO SCH (08:10)
[2019-08-07] MEDS: SACUBITRIL-VALSARTAN 97-103 MG TAB PO SCH (08:10)
[2019-08-07] MEDS: BUMETANIDE 1 MG TAB PO SCH (08:10)
[2019-08-07] MEDS: METOPROLOL SUCC 50MG EXT REL TAB PO SCH (08:10)
[2019-08-07] MEDS: allopurinoL 100 MG TAB PO SCH (08:11)
[2019-08-07] MEDS: allopurinoL 300 MG TAB PO SCH (08:11)
[2019-08-07] MEDS: INSULIN GLARGINE SOLOSTAR 100 UNITS/ML 3 ML PEN SC SCH (08:16)
[2019-08-07] MEDS: INSULIN ASPART 100 UNITS/ML 3 ML PEN SC SCH ×2 (08:17→12:02)
[2019-08-07] MEDS: PANTOprazole 40 MG in SYRINGE 0 ML IV SCH (11:57)
--- NOTE | 2019-08-07 15:26 | Hospitalist Progress Note ---
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 Hgb 6.7 in the ED. Unknown source of bleeding. Likely GI bleed in setting of INR >9. Symptomatic Anemia Likely GI bleeding S/P 2 units PRBC, 1 FFP and vitamin K INR reversed: 1.7 Coumadin held. Plan to continue to hold upon discharge until EGD/colonoscopy as outpatient Hemoglobin stable Appreciate GI input Needs follow-up with gastroenterology in 1 to 2 weeks upon discharge (6) Leukocytosis: Leukocytosis resolved --CT abd:No bowel obstruction or bowel wall thickening. Prior partial colectomy with enterocolic anastomosis. Pathologically enlarged lymph nodes of the inguinal chains appear stable. No new or progressive adenopathy. A right inguinal lymph node appears to have been previously biopsied. New small pleural effusions with bibasilar atelectasis. Marked cardiomegaly with unchanged partial ly imaged pericardial effusion which is at least moderate in size. Asymmetric cortical thinning with mild atrophy of the right kidney is redemonstrated along with right greater than left perinephric stranding and right pelvocaliectasis. Correlate with urinalysis to exclude ascending infectious etiology. This finding could be correlated with a nonemergent follow-up CT urogram as a urothelial lesion could have a similar appearance. Cholelithiasis. --Urine Cx; Mixed skin mady -CXR:Cardiomegaly and AICD. There is no radiographic evidence of congestive failure. No airspace consolidation or large pleural effusion is identified. -No obvious source of infection -Likely reactive leukocytosis (7) Diabetes mellitus type II, controlled: Last A1C 7.7 01/29/19. Hemoglobin A1c today 6.4 Continue insulin regimen per protocol. Monitor blood glucose (8) Ischemic cardiomyopathy: (9) Systolic and diastolic CHF, chronic: (10) AICD (automatic cardioverter/defibrillator) present: (11) Atrial fibrillation, chronic: (12) CAD (coronary artery disease): (13) Ventricular tachycardia: As per Patient with extensive cardiac history. Discussed patient with chute boss Dr. Riggs He recommends continuing patient's home cardiac medication and holding patient's Coumadin for about a week on discharge so that patient can get GI scope within the next week Recommendations appreciated (14) HTN (hypertension): Continue home meds (15) Dyslipidemia: Continue atorvastatin (16) ANTOINETTE on CPAP: CPAP at bedtime (17) Osteoarthritis of right hip: Patient planned for consultation for right hip replacement. Unlikely to happen due to current conditions. Will likely need to be rescheduled. (18) DVT prophylaxis: No pharm agent at this time due to supratherapeutic INR. Ambulate Admission and Anticipated Discharge Date Admission Date: August 05, 2019 Subjective Patient is seen and examined at bedside States feeling better today No significant drop in hemoglobin today Discussed with GI.. Plan for EGD colonoscopy as outpatient Denies any chest pain, shortness of breath, nausea, abdominal pain Offers no other complaints Eager to get discharged Review of Systems Review of Systems: All systems reviewed & are unremarkable except as noted in HPI & below Physical Exam Physical Exam: Physical Exam: Vitals signs as noted above General Appearance:Moderately built and nourished, no apparent distress Head: normocephalic, Atraumatic Eyes: normal inspection, EOMI Neck: supple, Trachea midline Respiratory/Chest: Normal breath sounds, CTA, No accessory muscle use Cardiovascular: S1, S2, No murmur Abdomen/GI:Soft, Non tender, Bowel sounds present Extremities/Musculoskelatal:normal inspection, , Chronic B/L venous stasis changes Neurologic/Psych:AAOX3, grossly no focal neurological deficits Skin: normal color, warm, +Pallor Results & Data Results & Data ([facility]) Vital Signs (Past 12 Hours) Vital Signs Temp Pulse Resp BP Pulse Ox 08/07/19 11:01 36.4 C L 65 18 94/56 L 90 08/07/19 07:17 36.9 C 62 18 97/59 L 98 08/07/19 05:13 36.3 C L 71 18 91/55 L 98 Laboratory Results Short CBC 08/07/19 Range/Units 05:23 WBC 9.46 (4.8-10.8) K/uL Hgb 7.9 L (14.0-18.0) g/dL Hct 24.9 L (42-52) % Plt Count 205 (130-400) K/uL BMP 08/07/19 05:23 Sodium 141 Potassium 3.9 Chloride 103 Carbon Dioxide 29 BUN 65 H Creatinine 1.73 H Glucose 153 H Calcium 8.1 L (1) Diabetes mellitus type II, controlled Diabetes mellitus batchmaker insulin use: with mcfp use Diabetes mellitus complication status: with kidney complications Diabetes mellitus complication detail: with chronic kidney disease Chronic kidney disease stage: unspecified stage Qualified Code(s): E11.22 - Type 2 diabetes mellitus with diabetic chronic kidney disease; Z79.4 - lubrication worker (current) use of insulin (2) CAD (coronary artery disease) Coronary Disease-Associated Artery/Lesion type: [place] artery [place] vs. transplanted heart: [place] heart Associated angina: without angina Qualified Code(s): I25.10 - Atherosclerotic heart disease of [place] coronary artery without angina pectoris (3) HTN (hypertension) Hypertension type: essential hypertension Qualified Code(s): I10 - Essential (primary) hypertension
--- NOTE | 2019-08-07 15:36 | Discharge Summary ---
Date of Service August 07, 2019 Admission HPI Per Admitting Provider Patient is a 69 yo male with a complicated PMHx including DM Type 2 with insulin dependence & CKD Stage III, Hypertensive heart disease with chronic combined systolic and diastolic CHF, chronic AFib, ischemic cardiomyopathy, CAD, hyperlipidemia, hx ND and Ventricular tachycardia s/p ICD placement who presented to the ED with SOB, EASLEY, dizziness, and fatigue. He fell at home yesterday because of the dizziness but sustained no injury. He does have some bruising on his abdomen but he states this is chronic from his insulin injections. His appetite has been poor over the past couple days as well, so he is wondering if that's why his INR is so high. He hasn't had any other major changes recently. No headache, dysphagia, chest pain, abdominal pain, N/V/D/C, urinary symptoms or peripheral edema out of his norm. He does have some chronic edema in his legs. He also has chronic pain in his right hip. He was expected to go for consultation this to Dr. Conley for hip replacement planning. Since presentation to the ED, it was noted that his Hgb was 6.7. Last CBC as an outpatient showed Hgb 13.9 in 12/2018. WBC count mildly elevated. INR >9. BNP 1783. Patient does have history of partial colectomy. Most recent colonoscopy was completed in 09/2018. He was noted to have 2 polyps, multiple diverticula, internal hemorrhoids, but otherwise exam was benign. He has had no GERD symptoms. No signs of bleeding. No dark stools. Admission Exam Per Admitting Provider Physical Exam Constitutional: WD/WN, vitals as above + obese Eyes: PERRL, conjunctivae normal, anicteric sclerae ENMT: Ears: no hearing impairment Neck: trachea midline, no thyromegaly Respiratory: normal respiratory effort, lungs clear to auscultation Cardiovascular: RRR, no murmur, no edema Gastrointestinal (Abdomen): normal bowel sounds, soft, nontender, no hepatosplenomegaly Inspection/Auscultation: abdomen not distended Musculoskeletal: Trace to 1+ pitting edema B/L LE. Skin: Venous stasis dermatitis b/l LE Neurologic: CN's II-XI intact bilaterally Psychiatric: A+Ox3, euthymic affect Principal Diagnosis Symptomatic anemia Likely gastrointestinal bleeding Supratherapeutic INR Discharge Data Allergies Allergy/AdvReac Type Severity Reaction Status Date / Time Penicillins Allergy Mild childhood Verified 02/18/19 04:06 reaction codeine AdvReac Mild NAUSEA, Verified 02/18/19 04:06 LIGHTHEADEDNESS simvastatin AdvReac Mild makes him Verified 02/18/19 04:06 feel like he is high Consultations 08/05/19 20:12 ED Decision to Admit Stat 08/05/19 20:50 Consult Cardiology Routine Consult Gastroenterology Routine 08/06/19 00:52 Consult Case Management - Discharge Planning Routine Procedures Performed --CT abd:No bowel obstruction or bowel wall thickening. Prior partial colectomy with enterocolic anastomosis. Pathologically enlarged lymph nodes of the inguinal chains appear stable. No new or progressive adenopathy. A right inguinal lymph node appears to have been previously biopsied. New small pleural effusions with bibasilar atelectasis. Marked cardiomegaly with unchanged partially imaged pericardial effusion which is at least moderate in size. Asymmetric cortical thinning with mild atrophy of the right kidney is redemonstrated along with right greater than left perinephric stranding and right pelvocaliectasis. Correlate with urinalysis to exclude ascending infectious etiology. This finding could be correlated with a nonemergent follow- up CT urogram as a urothelial lesion could have a similar appearance. Cholelithiasis. -CXR:Cardiomegaly and AICD. There is no radiographic evidence of congestive failure. No airspace consolidation or large pleural effusion is identified. Ordered Studies 08/05/19 20:11 CT abd pelvis wo con Stat Hospital Course (1) Symptomatic anemia: (2) Supratherapeutic INR: (3) [facility] current use of anticoagulant: (4) Dyspnea on exertion: (5) Fatigue: Patient presented with fatigue, SOB, EASLEY, and dizziness. Hgb 6.7 in the ED. Unknown source of bleeding. Likely GI bleed in setting of INR >9. Symptomatic Anemia Likely GI bleeding likely due to supratheraputic INR Acute blood loss anemia S/P 2 units PRBC, 1 FFP and vitamin K INR reversed: 1.7 Coumadin held. Plan to continue to hold upon discharge until EGD/colonoscopy as outpatient Hemoglobin stable Appreciate GI input Needs follow-up with gastroenterology in 1 to 2 weeks upon discharge Continue PO PPI BID (6) Leukocytosis: Leukocytosis resolved --CT abd:No bowel obstruction or bowel wall thickening. Prior partial colectomy with enterocolic anastomosis. Pathologically enlarged lymph nodes of the inguinal chains appear stable. No new or progressive adenopathy. A right inguinal lymph node appears to have been previously biopsied. New small pleural effusions with bibasilar atelectasis. Marked cardiomegaly with unchanged partially imaged pericardial effusion which is at least moderate in size. Asymmetric cortical thinning with mild atrophy of the right kidney is redemonstrated along with right greater than left perinephric stranding and right pelvocaliectasis. Correlate with urinalysis to exclude ascending infectious etiology. This finding could be correlated with a nonemergent follow- up CT urogram as a urothelial lesion could have a similar appearance. Cholelithiasis. --Urine Cx; Mixed skin mady -CXR:Cardiomegaly and AICD. There is no radiographic evidence of congestive failure. No airspace consolidation or large pleural effusion is identified. -No obvious source of infection -Likely reactive leukocytosis (7) Diabetes mellitus type II, controlled: Last A1C 7.7 01/29/19. Hemoglobin A1c today 6.4 Continue insulin regimen per protocol. Monitor blood glucose (8) Ischemic cardiomyopathy: (9) Systolic and diastolic CHF, chronic: (10) AICD (automatic cardioverter/defibrillator) present: (11) Atrial fibrillation, chronic: (12) CAD (coronary artery disease): (13) Ventricular tachycardia: As per Patient with extensive cardiac history. Discussed patient with enterprise architect manager Dr. Riggs He recommends continuing patient's home cardiac medication and holding patient's Coumadin for about a week on discharge so that patient can get GI scope within the next week Recommendations appreciated (14) HTN (hypertension): Continue home meds (15) Dyslipidemia: Continue atorvastatin (16) ANTOINETTE on CPAP: CPAP at bedtime (17) Osteoarthritis of right hip: Patient planned for consultation for right hip replacement. Unlikely to happen due to current conditions. Will likely need to be rescheduled. (18) DVT prophylaxis: No pharm agent at this time due to supratherapeutic INR. Ambulate Total Time Total Time Spent Total Time Spent (In Minutes): 38 minutes Total Time Includes: Examination of the Patient, Discharge Planning, Medication Reconciliation, Communication With Other Providers and Other Discharge Plan Discharge Items Patient Disposition: Home - Self-Care Reason For Visit: SYMPTOMATIC ANEMIA Discharge Diagnosis: Symptomatic anemia Likely gastrointestinal bleeding Supratherapeutic INR Activity: Per Instructions section Lifting: Wait until after follow-up appointment Non-emergency contact: Primary Care Provider and Respiratory Therapy Technician Call non-emergency contact if: you have any medication questions, your symptoms worsen, your pain is not controlled, your pain is worsening, your pain is unusual for you, your pain is concerning for you and you have a fever Follow-up/Referrals: Delmer Gracia MD [Primary Care Provider] - Diet: Carb Consistent or DM2 and Heart Healthy Addtl Attending Provider Instructions: Follow-up with Dr. Odom for primary care service on August 14, 2019 at 10:40 AM at [facility]. Follow-up with your aircraft navigator in 1-2 weeks for EGD/Colonoscopy as advised Your Warfarin (Coumadin) is held until further evaluation for possible gastrointestinal bleeding. Discussed with your primary care physician, as to when Coumadin need to be resumed. Start taking Protonix 40 mg twice a day as recommended by your aircraft navigator. Further instructions as per your aircraft navigator. Check your blood pressure regularly. Discussed with your physician for further adjustment of your medications. Seek immediate medical attention if your symptoms reoccur or worsen Pending Studies at Discharge: No Stand-Alone Forms: My [employer], Work/School Release (Inpt), Smoking Cessation Medications and DC Order Prescriptions: New pantoprazole [Protonix] 40 mg tablet,delayed release (DR/EC) 40 mg PO BID Qty: 60 RF: 0 Continued digoxin 125 mcg (0.125 mg) tablet 125 mcg PO Q2D Qty: 45 RF: 3 amiodarone 200 mg tablet 200 mg PO BID Qty: 180 RF: 3 lorazepam 0.5 mg tablet 0.5 mg PO DAILY PRN (Reason: anxiety) Qty: 30 RF: 1 meclizine 12.5 mg tablet 12.5 mg PO TID PRN (Reason: Dizziness Or Vertigo) RF: 0 Entresto 97-103 mg tablet 1 tab PO BID 90 Days Qty: 180 RF: 2 allopurinol 300 mg tablet 300 mg PO QAM RF: 0 atorvastatin 40 mg Tablet 40 mg PO QPM RF: 0 aspirin 81 mg Tablet,Delayed Release (Dr/Ec) 81 mg PO QAM RF: 0 Lantus Solostar U-100 Insulin 100 unit/mL (3 mL) insulin pen 45 units subcut QAM RF: 0 allopurinol 100 mg Tablet 100 mg PO QAM RF: 0 Novolog Flexpen U-100 Insulin 100 unit/mL (3 mL) insulin pen 0 units SQ ACHS RF: 0 venlafaxine 150 mg capsule,extended release 24hr 150 mg PO BID RF: 0 nitroglycerin 0.4 mg tablet, sublingual 0.4 mg sublingual UD PRN (Reason: Chest Pain) RF: 0 metoprolol succinate 100 mg tablet extended release 24 hr 100 mg PO BID RF: 0 bumetanide 2 mg Tablet 4 mg PO QAM RF: 0 potassium chloride 10 mEq tablet extended release 10 meq PO BID RF: 0 bumetanide 2 mg tablet 2 mg PO .DAILY@LUNCH PRN (Reason: .WEIGHT GAIN) RF: 0 cholecalciferol (vitamin D3) 125 mcg (5,000 unit) Tablet 125 mcg PO 2XWK RF: 0 tramadol 50 mg Tablet 50 mg PO Q6H PRN (Reason: Pain) RF: 0 Discontinued warfarin 2.5 mg Tablet 2.5 mg PO USEASDIRECTD RF: 0 Discharge Orders: Discharge Order (Routine); Ordered 08/07/19 Ordered By: Arjun Ritchie/Other Patient Handouts: Diabetes Type 2 Managing Admission Data Admit Date/Time: 08/05/19 21:12 Attending Provider: Arjun Horvath Admit Provider: Obdulio Araujo Primary Care Provider: Delmer Gracia Other Providers: Obdulio Araujo ; Quinton Riggs ; Zee Mendoza ; Esau Le Other Interventions: Discharge Summary Assessment (RN) Last Done: 08/07/19 15:47 DC Date/Time DO NOT enter until pt leaves facility: 08/07/19 16:28
--- NOTE | 2019-08-15 08:45 | Coding Query ---
CODING QUERY To promote full compliance with coding requirements relating to patient care, provider participation is requested in all cases of tool design engineer uncertainty. Please assist us with the question(s) below: Coding Question(s): The patient was discharged with diagnoses of symptomatic anemia, likely GI bleed, and supratherapeutic INR. In your clinical opinion what was the (suspected) etiology of the GI bleed? Thank you. Physician's Response(s): Unclear source Thank you Sherita Felix Principal Diagnosis: "that condition established after study, to be chiefly responsible for occasioning the admission of the patient to the hospital for care." Co-Existing Principal Diagnosis: "when two or more diagnoses equally meet the criteria for principal diagnosis as determined by the circumstances of admission, diagnostic work up, and/or therapy provided, and the Alphabetic Index, Tabular List, or another coding guideline does not provide sequencing direction, any one of the diagnoses may be sequenced first." "When the physician has documented what appears to be a current diagnosis in the body of the record, but has not included the diagnosis in the final diagnostic statement, the physician should be asked whether the diagnosis should be added." ([facility] 2 QTR90. p3-4) DAVID
== END 2019-08-07 16:28 | disposition home or self-care (01) | DRG 813 ==
LOC: ED 17:28 → 2W 21:12 → SUATTDRO 21:12 → 2W 08-06 00:17

== ENCOUNTER 2019-08-10 21:43 | Inpatient (IN) ==
[2019-08-10 22:10] LABS: Basophils # (auto) 0.02 K/uL (0-0.2); Basophils % (auto) 0.3 %; Eosinophils # (auto) 0.06 K/uL (0-0.5); Eosinophils % (auto) 0.9 %; Hematocrit (blood only) 23.9 % (42-52); Hemoglobin 7.5 g/dL (14.0-18.0); Immature Granulocytes # (auto) 0.01 K/uL (0.00-0.02); Immature Granulocytes % (auto) 0.1 %; Lymphocytes % (auto) 12.9 %; Mean Corpuscular Hemoglobin 31.5 pg (25-34); Mean Corpuscular Hgb Conc 31.4 g/dL (32-36); Mean Corpuscular Volume 100.4 fL (80-100); Mean Platelet Volume 10.1 fL (7.4-10.4); Monocytes # (auto) 1.08 K/uL (0.11-0.59); Monocytes % (auto) 15.4 %; Neutrophils # (auto) 4.93 K/uL (1.4-6.5); Neutrophils % (auto) 70.4 %; Nucleated RBC # (auto) 0.05 K/uL (0-0); Nucleated RBC % (auto) 0.7 %; Platelet Count 220 K/uL (130-400); RDW Coefficient of Variation 21.1 % (11.5-14.5); RDW Standard Deviation 75.4 fL (36.4-46.3); Red Blood Count 2.38 M/uL (4.7-6.1)
--- NOTE | 2019-08-10 22:17 | XRay Report ---
XR chest 1V portable HISTORY: Atypical Chest Pain COMPARISON: Chest 08/05/2019. FINDINGS: Cardiac silhouette remains in enlarged. Small bilateral pleural effusions persist. There is progressive perihilar interstitial vascular thickening suggestive of mild pulmonary edema. Bibasilar densities, unchanged. Left-sided pacemaker/defibrillator. IMPRESSION: 1. Interval development of mild congestive change. 2. Cardiomegaly and small bilateral pleural effusions persist. ACT 112: Negative or not required by law. Electronically signed by: Jeramy Esquivel M.D. 08/10/2019 10:16 PM
[2019-08-10 22:23] LABS: INR 2.1 (0.9-1.1); Prothrombin Time 21.2 Seconds (9.0-12.0)
[2019-08-10 22:32] LABS: Albumin Level 3.1 gm/dl (3.4-5.0); Bilirubin,Total 0.7 mg/dl (0.2-1); Creatinine Clr Calc Pharmacy 46.2 ml/min; Est GFR (African American) 42.7; Est GFR (Non-African American) 36.8; Globulin 3.1 gm/dl (2.5-4.0); Potassium 3.1 mmol/L (3.5-5.1); Total Protein 6.2 gm/dl (6.4-8.2); Troponin I 0.02 ng/ml (0-0.045)
[2019-08-10] MEDS ORDERED: DEXTROSE 50% 50 ML SYRINGE IV ONE (22:32)
[2019-08-10 22:37] LABS: Tear Drop Cells 1+
[2019-08-10] MEDS ORDERED: FUROSEMIDE 40 MG/4 ML VIAL IV STA (23:15)
[2019-08-10] MEDS ORDERED: POTASSIUM CHLORIDE 20 MEQ TABCR PO STA (23:15)
[2019-08-10] MEDS ORDERED: ALBUT/IPRATROP 3MG/0.5MG NEB 3 ML VIAL NEB STA (23:18)
[2019-08-10] MEDS: POTASSIUM CHLORIDE / WTR 10 MEQ/100 ML PLCT IV SCH (23:40)
--- NOTE | 2019-08-10 23:46 | History & Physical Report ---
Date of Service August 10, 2019 History of Present Illness Primary Care Provider: Delmer Gracia MD Allergies Allergy/AdvReac Type Severity Reaction Status Date / Time Penicillins Allergy Mild childhood Verified 08/10/19 23:04 reaction codeine AdvReac Mild NAUSEA, Verified 08/10/19 23:04 LIGHTHEADEDNESS simvastatin AdvReac Mild makes him Verified 08/10/19 23:04 feel like he is high Home Medications Home Medications Medication Instructions Recorded Confirmed Type aspirin 81 mg PO QAM 01/25/18 08/10/19 History atorvastatin 40 mg PO QPM 01/25/18 08/10/19 History allopurinol 100 mg PO QAM 09/11/18 08/10/19 History allopurinol 300 mg PO QAM 09/26/18 08/10/19 History insulin glargine 100 unit/mL (3 45 units SUBCUT QAM ml 12/17/18 08/10/19 History mL) subcutaneous pen metoprolol succinate 100 mg PO BID 01/21/19 08/10/19 History nitroglycerin 0.4 mg SUBLINGUAL UD PRN 01/21/19 08/10/19 History venlafaxine 150 mg PO BID 01/21/19 08/10/19 History insulin aspart U-100 100 unit/mL 0 units SQ ACHS ml 01/30/19 08/10/19 History (3 mL) subcutaneous pen meclizine 12.5 mg tablet 12.5 mg PO TID PRN 01/30/19 08/10/19 History sacubitril 97 mg-valsartan 103 mg 1 tab PO BID 90 Days #180 tab 01/30/19 08/10/19 Rx tablet bumetanide 4 mg PO QAM 02/27/19 08/10/19 History potassium chloride 10 meq PO BID 02/27/19 08/10/19 History digoxin 125 mcg (0.125 mg) tablet 125 mcg PO Q2D #45 tab 03/19/19 08/10/19 Rx amiodarone 200 mg tablet 200 mg PO BID #180 tab 05/16/19 08/10/19 Rx lorazepam 0.5 mg tablet 0.5 mg PO DAILY PRN #30 tab 07/25/19 08/10/19 Rx bumetanide 2 mg PO .DAILY@LUNCH PRN 08/05/19 08/10/19 History cholecalciferol (vitamin D3) 125 mcg PO 2XWK 08/05/19 08/10/19 History tramadol 50 mg PO Q6H PRN 08/05/19 08/10/19 History pantoprazole [Protonix] 40 mg PO BID #60 tab 08/07/19 08/10/19 Rx Past Med/Surg History Social History Preferred Language: Kiswahili Communication Ability: Effective [employer] 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: No Beliefs That Will Affect Care: None marital status: Current Living Situation: Spouse Feels Safe at Home: Yes Smoking Status: Never smoker Second Hand Exposure: No ; Hx Alcohol Use: No Hx Substance Use: No Results & Data Results & Data ([facility]) Vital Signs (Past 12 Hours) Vital Signs Temp Pulse Pulse Resp BP Pulse Ox 08/10/19 23:29 57 L 20 100 08/10/19 23:15 58 L 20 128/57 L 98 08/10/19 23:00 57 L 20 126/57 L 98 08/10/19 22:45 61 21 116/55 L 98 08/10/19 22:41 90 08/10/19 22:30 62 25 H 145/56 H 92 08/10/19 22:15 60 24 140/57 L 93 08/10/19 22:10 66 28 H 147/66 H 92 08/10/19 22:02 94 08/10/19 21:57 36.5 C 71 20 138/56 L 94 Laboratory Results Laboratory Results WBC 7.00 K/uL (4.8-10.8) 08/10/19 21:32 RBC 2.38 M/uL (4.7-6.1) L 08/10/19 21:32 Hgb 7.5 g/dL (14.0-18.0) L 08/10/19 21:32 Hct 23.9 % (42-52) L 08/10/19 21:32 MCV 100.4 fL (80-100) H 08/10/19 21:32 MCH 31.5 pg (25-34) 08/10/19 21:32 MCHC 31.4 g/dL (32-36) L 08/10/19 21:32 RDW Std Deviation 75.4 fL (36.4-46.3) H 08/10/19 21:32 RDW Coeff of Joe 21.1 % (11.5-14.5) H 08/10/19 21: Plt Count 220 K/uL (130-400) 08/10/19 21: MPV 10.1 fL (7.4-10.4) 08/10/19 21:32 Immature Gran % (Auto) 0.1 % 08/10/19 21: Neut % (Auto) 70.4 % 08/10/19 21: Lymph % (Auto) 12.9 % 08/10/19 21: Ware % (Auto) 15.4 % 08/10/19 21: Eos % (Auto) 0.9 % 08/10/19 21: Baso % (Auto) 0.3 % 08/10/19 21: Immature Gran # (Auto) 0.01 K/uL (0.00-0.02) 08/10/19 21: Neut # (Auto) 4.93 K/uL (1.4-6.5) 08/10/19 21: Lymph # (Auto) 0.90 K/uL (1.2-3.4) L 08/10/19 21: Ware # (Auto) 1.08 K/uL (0.11-0.59) H 08/10/19 21: Eos # (Auto) 0.06 K/uL (0-0.5) 08/10/19 21: Baso # (Auto) 0.02 K/uL (0-0.2) 08/10/19 21: Absolute Nucleated RBC 0.05 K/uL (0-0) H 08/10/19 21: Nucleated RBC % (auto) 0.7 % 08/10/19 21: Tear Drop Cells 1+ 08/10/19 21: PT 21.2 Seconds (9.0-12.0) H 08/10/19 21: INR 2.1 (0.9-1.1) H 08/10/19 21: APTT 29.0 Seconds (21.0-31.0) 08/10/19: PTT Ratio 1.0 08/10/19 21: Sodium 139 mmol/L (136-145) 08/10/19 21:32 Potassium 3.1 mmol/L (3.5-5.1) L 08/10/19 21:32 Chloride 104 mmol/L (98-107) 08/10/19 21: Carbon Dioxide 27 mmol/L (21-32) 08/10/19 21:32 Anion Gap 8.0 (3-11) 08/10/19 21:32 BUN 49 mg/dl (7-18) H 08/10/19 21:32 Creatinine 1.83 mg/dl (0.6-1.4) H 08/10/19 21:32 Est Cr Clr Drug Dosing 46.2 ml/min 08/10/19 21:32 Est GFR ( Amer) 42.7 08/10/19 21: Est GFR (Non-Af Amer) 36.8 08/10/19 21: BUN/Creatinine Ratio 27.0 (10-20) H 08/10/19 21:32 Glucose 45 mg/dl (70-99) L* 08/10/19 21: POC Glucose 109 mg/dl (70-99) H 08/10/19 23: Calcium 8.0 mg/dl (8.5-10.1) L 08/10/19 21:32 Total Bilirubin 0.7 mg/dl (0.2-1) 08/10/19: AST 25 U/L (15-37) 08/10/19 21:32 ALT 28 U/L (12-78) 08/10/19 21:32 Alkaline Phosphatase 106 U/L (45-117) 08/10/19 21: Troponin I 0.020 ng/ml (0-0.045) 08/10/19 21:32 Total Protein 6.2 gm/dl (6.4-8.2) L 08/10/19 21: Albumin 3.1 gm/dl (3.4-5.0) L 08/10/19: Globulin 3.1 gm/dl (2.5-4.0) 08/10/19 21:32 Albumin/Globulin Ratio 1.0 (0.9-2) 08/10/19 21:32
[2019-08-10 23:49] LABS: Allen Test POS (Pos); Base Excess ABG 2.6 mEq/L (-9-1.8); HCO3 ABG 28 mmol/L (19-24); Oxygen Saturation ABG 98.3 % (90-95); PCO2 ABG 46 mmHg (35-46); PO2 ABG 120 mmHg (80-95)
[2019-08-11 00:08] LABS: Magnesium 2.1 mg/dl (1.8-2.4); Troponin I 0.02 ng/ml (0-0.045)
--- NOTE | 2019-08-11 00:12 | History & Physical Report ---
Date of Service August 11, 2019 Assessment & Plan (1) SOB (shortness of breath): SOB (shortness of breath)/weakness Multifactorial : Decompensated heart failure, hx chronic systolic heart failure secondary to ischemic cardiomyopathy (EF 35%, 2019) sp ICD ? Cardiorenal syndrome (ARF on CKD, pulmonary congestion) Symptomatic anemia secondary to occult GI bleed (stool FOBT done at the ER was positive) Hypoglycemia ? Complicated UTI, no sepsis CAD as per records AFib rate controlled INR therapeutic despite being off anticoagulation following recent confinement ? Underlying liver disease hyperlipidemia on statin Rx DM2, insulin requiring, well-controlled as of recent hemoglobin A1c of 6.22 Jul 2019 chronic anemia secondary to CKD, hemoglobin at baseline Hypokalemia secondary to home insulin, diuretic Rx ANTOINETTE on CPAP PCU Cardiology consult RE decompensated heart failure Follow renal function, appropriate to hold Entresto for now given kidney dysfunction Nephrology consult if with worsening kidney function Vitamin K to reverse coagulopathy, transfuse PRBC to maintain hemoglobin greater than 8 Hold aspirin for now given occult GI bleed causing symptomatic anemia GI consult RE occult GI bleed, recurrent admission for symptomatic anemia Follow urine cultures, Cefepime for now Appropriate to hold basal insulin given hypoglycemia, ISS BG goal 1 40-180 Replace potassium DVT prophylaxis. SCD RE occult GI bleed causing symptomatic anemia Full code Text document was generated using [email or web address] voice recognition software. It may contain grammatical or spelling errors. Kindly contact undersigned for clarification of any documentation item in question. History of Present Illness Chief Complaint: Chest pain, S OB Primary Care Provider: Delmer Gracia MD History obtained from patient and records. Medical history significant for chronic systolic heart failure secondary to ischemic cardiomyopathy (EF 35%, TTE 2019 ), hx CAD as per records, history of AFib currently off Coumadin due to anemia, HTN, hyperlipidemia, DM2, insulin requiring, ANTOINETTE on CPAP, anxiety/mood disorder, CRI (baseline creatinine 1.5), chronic anemia (baseline hemoglobin of 7-8), history colonic polyps, diverticulosis, internal hemorrhoids. Recent confinement from August 04-2023 symptomatic anemia, supratherapeutic INR. 2 units PRBC transfused during confinement. Hemoglobin 7. 8 on discharge. Coagulopathy reversed with vitamin K and fresh frozen plasma. Coumadin held on discharge in anticipation of outpatient EGD/colonoscopy to be scheduled in 1 to 2 weeks as per outpatient notes. Yesterday patient was sitting on the porch with his when he noted transient chest discomfort, sweatiness and shortness of breath. No unusual fluid retention as per patient. No cough, no fever now no chills. Patient somewhat sleepy and tired. Denies abdominal pain, black/ bloody stools. Appetite okay at home. No change in insulin regimen. Denies dietary indiscretion. Compliant with home meds. At the ER, patient given Lasix for CHF. Dextrose ampule administered at the ER BSG noted to be 40s. No other recent hypoglycemic episodes as per patient. Medical History as above Colonoscopy 2018 showed prior end-to-side ileocolonic anastomosis in the proximal transverse colon noted to be patent. Sigmoid and rectal polyps. Sigmoid diverticulosis. Internal hemorrhoids. 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 Allergies Allergy/AdvReac Type Severity Reaction Status Date / Time Penicillins Allergy Mild childhood Verified 08/10/19 23:04 reaction codeine AdvReac Mild NAUSEA, Verified 08/10/19 23:04 LIGHTHEADEDNESS simvastatin AdvReac Mild makes him Verified 08/10/19 23:04 feel like he is high Home Medications Home Medications Medication Instructions Recorded Confirmed Type aspirin 81 mg PO QAM 01/25/18 08/10/19 History atorvastatin 40 mg PO QPM 01/25/18 08/10/19 History allopurinol 100 mg PO QAM 09/11/18 08/10/19 History allopurinol 300 mg PO QAM 09/26/18 08/10/19 History insulin glargine 100 unit/mL (3 45 units SUBCUT QAM ml 12/17/18 08/10/19 History mL) subcutaneous pen metoprolol succinate 100 mg PO BID 01/21/19 08/10/19 History nitroglycerin 0.4 mg SUBLINGUAL UD PRN 01/21/19 08/10/19 History venlafaxine 150 mg PO BID 01/21/19 08/10/19 History insulin aspart U-100 100 unit/mL 0 units SQ ACHS ml 01/30/19 08/10/19 History (3 mL) subcutaneous pen meclizine 12.5 mg tablet 12.5 mg PO TID PRN 01/30/19 08/10/19 History sacubitril 97 mg-valsartan 103 mg 1 tab PO BID 90 Days #180 tab 01/30/19 08/10/19 Rx tablet bumetanide 4 mg PO QAM 02/27/19 08/10/19 History potassium chloride 10 meq PO BID 02/27/19 08/10/19 History digoxin 125 mcg (0.125 mg) tablet 125 mcg PO Q2D #45 tab 03/19/19 08/11/19 Rx amiodarone 200 mg tablet 200 mg PO BID #180 tab 05/16/19 08/10/19 Rx lorazepam 0.5 mg tablet 0.5 mg PO DAILY PRN #30 tab 07/25/19 08/10/19 Rx bumetanide 2 mg PO .DAILY@LUNCH PRN 08/05/19 08/10/19 History cholecalciferol (vitamin D3) 125 mcg PO 2XWK 08/05/19 08/10/19 History tramadol 50 mg PO Q6H PRN 08/05/19 08/10/19 History pantoprazole [Protonix] 40 mg PO BID #60 tab 08/07/19 08/10/19 Rx Past Med/Surg History Medical History Anxiety (Inactive) Atrial fibrillation, chronic (Chronic) CAD (coronary artery disease) (Chronic) stenting to LAD in 1994 and 1996 stenting to RCA and LAD in 2007 CKD (chronic kidney disease) (Acute) Congestive heart failure (Resolved) Depression with anxiety (Chronic) Diabetes mellitus type II, controlled (Chronic) Diabetic neuropathy (Chronic) Dyslipidemia (Chronic) Gout HTN (hypertension) (Chronic) 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 CARDIAC CATH WITH 2 STENTS ANTOINETTE on CPAP (Chronic) Systolic and diastolic CHF, chronic (Chronic) Surgical History AICD (automatic cardioverter/defibrillator) present (Chronic) placed on 10/24/17 [employer] DEVICE. LAST CHECKED [address] DOMINGUEZ[facility]. PLACED IN OCTOBER 2017 AT [facility] History of bowel resection (Resolved) MASSIVE POLPYS History of cardiac cath (Inactive) 1989 --> X2 STENTS. BARE METAL STENTS ~1992 --> X2 STENTS. DRUG ELUTING STENTS. 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 Beliefs That Will Affect Care: None marital status: Current Living Situation: Spouse Other Information That Helps Us Care for You: No Feels Safe at Home: Yes Safety Concerns: Feels Safe At This Time Smoking Status: Never smoker Second Hand Exposure: No ; Hx Alcohol Use: No Hx Substance Use: No Review of Systems Review of Systems: As per HPI, all 10 systems reviewed, all other ROS negative Physical Exam Physical Exam: GENERAL: Episodic lethargy, obese, no respiratory distress SKIN: Pallor , warm HEENT: Pale palpebral conjunctivae, no ptosis, dry buccal mucosa NECK : Supple, short neck, no tenderness CHEST : Decreased breath sounds , no tenderness HEART : Irregular, no obvious murmurs ABDOMEN: Some distention, nontender RECTAL : Intact sphincter, brown stool (FOBT positive ) EXTREMITIES : Minimal LE swelling, no LE tenderness, no other conspicuous deformities noted NEUROLOGIC : Episodic lethargy, no facial asymmetry, no other gross focality Results & Data Results & Data ([facility]) Vital Signs (Past 12 Hours) Vital Signs Temp Pulse Pulse Resp BP Pulse Ox 08/10/19 23:29 57 L 20 100 08/10/19 23:15 58 L 20 128/57 L 98 08/10/19 23:00 57 L 20 126/57 L 98 08/10/19 22:45 61 21 116/55 L 98 08/10/19 22:41 90 08/10/19 22:30 62 25 H 145/56 H 92 08/10/19 22:15 60 24 140/57 L 93 08/10/19 22:10 66 28 H 147/66 H 92 08/10/19 22:02 94 08/10/19 21:57 36.5 C 71 20 138/56 L 94 Laboratory Results Laboratory Results WBC 7.00 K/uL (4.8-10.8) 08/10/19 21: RBC 2.38 M/uL (4.7-6.1) L 08/10/19 21:32 Hgb 7.5 g/dL (14.0-18.0) L 08/10/19 21:32 Hct 23.9 % (42-52) L 08/10/19 21: MCV 100.4 fL (80-100) H 08/10/19 21:32 MCH 31.5 pg (25-34) 08/10/19 21: MCHC 31.4 g/dL (32-36) L 08/10/19 21: RDW Std Deviation 75.4 fL (36.4-46.3) H 08/10/19 21: RDW Coeff of Joe 21.1 % (11.5-14.5) H 08/10/19 21: Plt Count 220 K/uL (130-400) 08/10/19 21: MPV 10.1 fL (7.4-10.4) 08/10/19 21: Immature Gran % (Auto) 0.1 % 08/10/19 21: Neut % (Auto) 70.4 % 08/10/19 21: Lymph % (Auto) 12.9 % 08/10/19 21: Burke % (Auto) 15.4 % 08/10/19 21: Eos % (Auto) 0.9 % 08/10/19: Baso % (Auto) 0.3 % 08/10/19 21: Immature Gran # (Auto) 0.01 K/uL (0.00-0.02) 08/10/19 21: Neut # (Auto) 4.93 K/uL (1.4-6.5) 08/10/19 21: Lymph # (Auto) 0.90 K/uL (1.2-3.4) L 08/10/19 21: Burke # (Auto) 1.08 K/uL (0.11-0.59) H 08/10/19 21: Eos # (Auto) 0.06 K/uL (0-0.5) 08/10/19 21:32 Baso # (Auto) 0.02 K/uL (0-0.2) 08/10/19 21:32 Absolute Nucleated RBC 0.05 K/uL (0-0) H 08/10/19 21:32 Nucleated RBC % (auto) 0.7 % 08/10/19 21:32 Tear Drop Cells 1+ 08/10/19 21:32 PT 21.2 Seconds (9.0-12.0) H 08/10/19 21:32 INR 2.1 (0.9-1.1) H 08/10/19 21:32 APTT 29.0 Seconds (21.0-31.0) 08/10/19 21: PTT Ratio 1.0 08/10/19 21:32 ABG pH 7.40 (7.35-7.45) 08/10/19 23:37 ABG pCO2 46 mmHg (35-46) 08/10/19 23:37 ABG pO2 120 mmHg (80-95) H 08/10/19 23:37 ABG HCO3 28 mmol/L (19-24) H 08/10/19 23:37 ABG O2 Saturation 98.3 % (90-95) H 08/10/19 23:37 ABG Base Excess 2.6 mEq/L (-9-1.8) H 08/10/19 23:37 Pito Test POS (Pos) 08/10/19 23:37 Barometric Pressure 734.3 mm/Hg 08/10/19 23:37 Oxygen Given 2L 08/10/19 23:37 Sodium 139 mmol/L (136-145) 08/10/19 21:32 Potassium 3.1 mmol/L (3.5-5.1) L 08/10/19 21:32 Chloride 104 mmol/L (98-107) 08/10/19 21:32 Carbon Dioxide 27 mmol/L (21-32) 08/10/19 21:32 Anion Gap 8.0 (3-11) 08/10/19 21:32 BUN 49 mg/dl (7-18) H 08/10/19 21:32 Creatinine 1.83 mg/dl (0.6-1.4) H 08/10/19 21:32 Est Cr Clr Drug Dosing 46.2 ml/min 08/10/19 21:32 Est GFR ( Amer) 42.7 08/10/19 21:32 Est GFR (Non-Af Amer) 36.8 08/10/19 21:32 BUN/Creatinine Ratio 27.0 (10-20) H 08/10/19 21:32 Glucose 45 mg/dl (70-99) L* 08/10/19 21:32 POC Glucose 109 mg/dl (70-99) H 08/10/19 23:21 Calcium 8.0 mg/dl (8.5-10.1) L 08/10/19 21:32 Magnesium 2.1 mg/dl (1.8-2.4) 08/10/19 23:37 Total Bilirubin 0.7 mg/dl (0.2-1) 08/10/19 21:32 AST 25 U/L (15-37) 08/10/19 21:32 ALT 28 U/L (12-78) 08/10/19 21:32 Alkaline Phosphatase 106 U/L (45-117) 08/10/19 21:32 Troponin I 0.020 ng/ml (0-0.045) 08/10/19 23:37 Total Protein 6.2 gm/dl (6.4-8.2) L 08/10/19 21:32 Albumin 3.1 gm/dl (3.4-5.0) L 08/10/19 21:32 Globulin 3.1 gm/dl (2.5-4.0) 08/10/19 21: Albumin/Globulin Ratio 1.0 (0.9-2) 08/10/19 21:32 Diagnostic Findings Laboratory Results WBC 7.00 K/uL (4.8-10.8) 08/10/19 21:32 RBC 2.38 M/uL (4.7-6.1) L 08/10/19 21:32 Hgb 7.5 g/dL (14.0-18.0) L 08/10/19 21:32 Hct 23.9 % (42-52) L 08/10/19 21:32 MCV 100.4 fL (80-100) H 08/10/19 21:32 MCH 31.5 pg (25-34) 08/10/19 21:32 MCHC 31.4 g/dL (32-36) L 08/10/19 21: RDW Std Deviation 75.4 fL (36.4-46.3) H 08/10/19 21: RDW Coeff of Joe 21.1 % (11.5-14.5) H 08/10/19 21:32 Plt Count 220 K/uL (130-400) 08/10/19 21: MPV 10.1 fL (7.4-10.4) 08/10/19 21: Immature Gran % (Auto) 0.1 % 08/10/19 21: Neut % (Auto) 70.4 % 08/10/19 21: Lymph % (Auto) 12.9 % 08/10/19 21: Burke % (Auto) 15.4 % 08/10/19 21: Eos % (Auto) 0.9 % 08/10/19 21: Baso % (Auto) 0.3 % 08/10/19 21: Immature Gran # (Auto) 0.01 K/uL (0.00-0.02) 08/10/19 21: Neut # (Auto) 4.93 K/uL (1.4-6.5) 08/10/19 21: Lymph # (Auto) 0.90 K/uL (1.2-3.4) L 08/10/19 21: Burke # (Auto) 1.08 K/uL (0.11-0.59) H 08/10/19 21:32 Eos # (Auto) 0.06 K/uL (0-0.5) 08/10/19 21: Baso # (Auto) 0.02 K/uL (0-0.2) 08/10/19 21: Absolute Nucleated RBC 0.05 K/uL (0-0) H 08/10/19 21: Nucleated RBC % (auto) 0.7 % 08/10/19 21: Tear Drop Cells 1+ 08/10/19 21: PT 21.2 Seconds (9.0-12.0) H 08/10/19 21:32 INR 2.1 (0.9-1.1) H 08/10/19 21: APTT 29.0 Seconds (21.0-31.0) 08/10/19 21:32 PTT Ratio 1.0 08/10/19 21:32 ABG pH 7.40 (7.35-7.45) 08/10/19 23:37 ABG pCO2 46 mmHg (35-46) 08/10/19 23:37 ABG pO2 120 mmHg (80-95) H 08/10/19 23:37 ABG HCO3 28 mmol/L (19-24) H 08/10/19 23:37 ABG O2 Saturation 98.3 % (90-95) H 08/10/19 23:37 ABG Base Excess 2.6 mEq/L (-9-1.8) H 08/10/19 23:37 Pito Test POS (Pos) 08/10/19 23:37 Barometric Pressure 734.3 mm/Hg 08/10/19 23:37 Oxygen Given 2L 08/10/19 23:37 Sodium 139 mmol/L (136-145) 08/10/19 21:32 Potassium 3.1 mmol/L (3.5-5.1) L 08/10/19 21:32 Chloride 104 mmol/L (98-107) 08/10/19 21:32 Carbon Dioxide 27 mmol/L (21-32) 08/10/19 21:32 Anion Gap 8.0 (3-11) 08/10/19 21:32 BUN 49 mg/dl (7-18) H 08/10/19 21:32 Creatinine 1.83 mg/dl (0.6-1.4) H 08/10/19 21:32 Est Cr Clr Drug Dosing 46.2 ml/min 08/10/19 21:32 Est GFR ( Amer) 42.7 08/10/19 21:32 Est GFR (Non-Af Amer) 36.8 08/10/19 21:32 BUN/Creatinine Ratio 27.0 (10-20) H 08/10/19 21:32 Glucose 45 mg/dl (70-99) L* 08/10/19 21:32 POC Glucose 109 mg/dl (70-99) H 08/10/19 23:21 Calcium 8.0 mg/dl (8.5-10.1) L 08/10/19 21:32 Magnesium 2.1 mg/dl (1.8-2.4) 08/10/19 23:37 Total Bilirubin 0.7 mg/dl (0.2-1) 08/10/19 21:32 AST 25 U/L (15-37) 08/10/19 21:32 ALT 28 U/L (12-78) 08/10/19 21:32 Alkaline Phosphatase 106 U/L (45-117) 08/10/19: Troponin I 0.020 ng/ml (0-0.045) 08/10/19 23:37 Total Protein 6.2 gm/dl (6.4-8.2) L 08/10/19: Albumin 3.1 gm/dl (3.4-5.0) L 08/10/19: Globulin 3.1 gm/dl (2.5-4.0) 08/10/19: Albumin/Globulin Ratio 1.0 (0.9-2) 08/10/19 21:[address] head: No acute intracranial findings. No significant change in appearance of the brain. Chest x-ray : 1. Interval development of mild congestive change. 2. Cardiomegaly and small bilateral pleural effusions persist. EKG as per my interpretation : Rate 70, A. fib, normal axis, diffuse T wave abnormalities, low voltage
[2019-08-11] MEDS ORDERED: PHYTONADIONE 5 MG in SODIUM CHLORIDE 0.9% 50 ML IV ONE (00:30)
--- NOTE | 2019-08-11 01:43 | Emergency Department Note ---
Impression & Plan CHF (congestive heart failure), Hypoglycemia, Hypoxia, Hypokalemia ED Provider Note NAME: EUSEBIA HOWE JR AGE: 69 SEX: M : 1950 ARRIVES VIA: Ambulance INFORMANT: Patient, ED PROVIDER(S): Ton Merchant MD Chief Complaint: Shortness of breath HPI: She does present from home with concern for shortness of breath. The patient states that this started this evening while watching television. Patient denies any chest pains or cough. The patient does have associated lower extremity swelling. The patient states he has been compliant with his medications. Patient does not present with cough, fevers, chills, coronavirus contacts, coronavirus testing, or recent travel. Patient states that the short ness of breath is gotten progressively worse and is constant. Patient does complain of some mild orthopnea. ROS: See HPI for pertinent positives and negatives. A total of 10 systems were reviewed and otherwise negative. Past medical history: See below Surgical history: See below Social history: See below Physical Exam: GENERAL: Tired in appearance, easily arousable. EYE EXAM: Normal conjunctiva. PERRL, no anisocoria and EOM's grossly intact w/o pain. NECK: Supple, no nuchal rigidity, no adenopathy, non-tender. No signs of meningismus. LUNGS: Bibasilar crackles noted. Normal chest wall mechanics. HEART: NSR, no MRG. ABDOMEN: Abdomen soft, non-tender, normo-active bowel sounds, no masses, no rebound or guarding. BACK: No CVA TTP. SKIN: No rashes and no bruising. UPPER EXTREMITIES: Upper extremities are grossly normal. LOWER EXTREMITIES: Grossly normal, 1-2+ lower extremity edema. NEURO EXAM: Opens eyes to voice, oriented x3, cranial nerves II-XII grossly intact, normal speech, moves all 4 extremities on command w/o issue. Differential diagnoses: Reactive airway disease, pneumonia, pneumothorax, COPD, CHF, infections, cardiac ischemia, pulmonary embolism, musculoskeletal, g astrointestinal, as well as other pathologies. Course: Patient was seen and evaluated the bedside. Full history physical exam was performed. EKG: Indication: Shortness of breath A. fib, rate of 70, normal QRS, normal axis, T wave flattening inferiorly, no significant change from August 06, 2019. Imaging Studies: Radiology results as stated below per my review in the radiologist's interpretation: XR chest 1V portable HISTORY: Atypical Chest Pain COMPARISON: Chest 08/05/2019. FINDINGS: Cardiac silhouette remains in enlarged. Small bilateral pleural effusions persist. There is progressive perihilar interstitial vascular thickening suggestive of mild pulmonary edema. Bibasilar densities, unchanged. Left-sided pacemaker/defibrillator. IMPRESSION: 1. Interval development of mild congestive change. 2. Cardiomegaly and small bilateral pleural effusions persist. ACT 112: Negative or not required by law. Electronically signed by: Jeramy Esquivel M.D. 08/10/2019 10:16 PM Dictated: 08/10/192214 Transcribed: 08/10/192214 Cardiac monitoring: An order was placed for continuous cardiac monitoring. The monitor shows a rate of 70 with irregularly irregular rhythm. MDM: Patient was seen due to concern for shortness of breath. Patient denied any cough but only some mild orthopnea and some lower extremity swelling. The patient does take Coumadin for prior history of A. fib. The patient is tired but easily arousable. The patient's blood sugar was low so the patient was given dextrose. Patient was initially in the low 90s so was placed on supplemental oxygen. The patient does have chronic but stable anemia. White count is normal. Function is at baseline. Patient's repeat blood sugar was normal. Given the concern for the patient's hypoxia and hypoglycemia and likely CHF the patient was admitted to the medicine service. Critical Care: I have personally spent 35 minutes of critical care time in direct management of this patient. This includes bedside care, interpretation of diagnostic studies, and testing, discussion with consultants, patient, and family members, and other require inpatient management activities. This 35 minutes is in excess of all s eparately billable procedures. Past Med/Surg History Medical History Anxiety (Inactive) Atrial fibrillation, chronic (Chronic) CAD (coronary artery disease) (Chronic) stenting to LAD in 1994 and 1996 stenting to RCA and LAD in 2007 CKD (chronic kidney disease) (Acute) Congestive heart failure (Resolved) Depression with anxiety (Chronic) Diabetes mellitus type II, controlled (Chronic) Diabetic neuropathy (Chronic) Dyslipidemia (Chronic) Gout HTN (hypertension) (Chronic) Ischemic dilated cardiomyopathy (Inactive) senior living current use of anticoagulant (Chronic) warfarin daily Myocardial Infarction (Resolved) 1989. CARDIAC CATH WITH 2 STENTS ANTOINETTE on CPAP (Chronic) Systolic and diastolic CHF, chronic (Chronic) Surgical History AICD (automatic cardioverter/defibrillator) present (Chronic) placed on 10/24/17 [employer] DEVICE. LAST CHECKED [address] DOMINGUEZ[facility]. PLACED IN OCTOBER 2017 AT [facility] History of bowel resection (Resolved) MASSIVE POLPYS History of cardiac cath (Inactive) 1989 --> X2 STENTS. BARE METAL STENTS ~1992 --> X2 STENTS. DRUG ELUTING STENTS. History of cataract surgery (Resolved) BILATERAL History of colonoscopy (Inactive) History of heart artery stent (Resolved) History of partial colectomy (Resolved) "[facility]/ ilieorectal anast/ multiple polyps 2008" Stented coronary artery (Inactive) "stents x 4 to RCA and LAD 1997" Family History Mother Coronary heart disease Diabetes Father Lung cancer Sister Diabetes Social History Preferred Language: Chinese Communication Ability: Effective Dishwasher Required: No Beliefs That Will Affect Care: None marital status: Current Living Situation: Spouse Other Information That Helps Us Care for You: No Feels Safe at Home: Yes Safety Concerns: Feels Safe At This Time Smoking Status: Never smoker Second Hand Exposure: No ; Hx Alcohol Use: No Hx Substance Use: No Allergies Allergies Allergy/AdvReac Type Severity Reaction Status Date / Time Penicillins Allergy Mild childhood Verified 08/10/19 23:04 reaction codeine AdvReac Mild NAUSEA, Verified 08/10/19 23:04 LIGHTHEADEDNESS simvastatin AdvReac Mild makes him Verified 08/10/19 23:04 feel like he is high Home Meds Home Medications Medication Instructions Recorded Confirmed aspirin 81 mg PO QAM 01/25/18 08/10/19 atorvastatin 40 mg PO QPM 01/25/18 08/10/19 allopurinol 100 mg PO QAM 09/11/18 08/10/19 allopurinol 300 mg PO QAM 09/26/18 08/10/19 insulin glargine 100 unit/mL (3 45 units SUBCUT QAM ml 12/17/18 08/10/19 mL) subcutaneous pen metoprolol succinate 100 mg PO BID 01/21/19 08/10/19 nitroglycerin 0.4 mg SUBLINGUAL UD PRN 01/21/19 08/10/19 venlafaxine 150 mg PO BID 01/21/19 08/10/19 insulin aspart U-100 100 unit/mL 0 units SQ ACHS ml 01/30/19 08/10/19 (3 mL) subcutaneous pen meclizine 12.5 mg tablet 12.5 mg PO TID PRN 01/30/19 08/10/19 bumetanide 4 mg PO QAM 02/27/19 08/10/19 potassium chloride 10 meq PO BID 02/27/19 08/10/19 bumetanide 2 mg PO .DAILY@LUNCH PRN 08/05/19 08/10/19 cholecalciferol (vitamin D3) 125 mcg PO 2XWK 08/05/19 08/10/19 tramadol 50 mg PO Q6H PRN 08/05/19 08/10/19 Previous Rx's Medication Instructions Recorded sacubitril 97 mg-valsartan 103 mg 1 tab PO BID 90 Days #180 tab 01/30/19 tablet digoxin 125 mcg (0.125 mg) tablet 125 mcg PO Q2D #45 tab 03/19/19 amiodarone 200 mg tablet 200 mg PO BID #180 tab 05/16/19 lorazepam 0.5 mg tablet 0.5 mg PO DAILY PRN #30 tab 07/25/19 pantoprazole [Protonix] 40 mg PO BID #60 tab 08/07/19 Results & Data (ED) Vital Signs Vital Signs - 24 hr 08/10/19 21:57 08/10/19 22:02 08/10/19 22:10 Temperature 36.5 C Temperature Source Oral Pulse Rate 71 66 Pulse Rate [Right Radial] Pulse Rate from SpO2 Sensor 66 Respiratory Rate 20 28 H Respiratory Effort / Characteristics Non-Labored Spontaneous Respiratory Depth Normal Blood Pressure 138/56 L 147/66 H Blood Pressure Mean 83 93 Blood Pressure Position Lying Pulse Oximetry 94 94 92 Oxygen Delivery Method Room Air Room Air Nasal Cannula Oxygen Flow Rate 2 Sepsis Recent Fever Within 48 Hours No Sepsis Action Taken by Nursing No Action Required Oxygen Flow Rate - Titration 2 Pulse Oximetry Post Tiitration 93 08/10/19 22:15 08/10/19 22:30 08/10/19 22:41 Temperature Temperature Source Pulse Rate 60 62 Pulse Rate [Right Radial] Pulse Rate from SpO2 Sensor 59 L 62 Respiratory Rate 24 25 H Respiratory Effort / Characteristics Respiratory Depth Blood Pressure 140/57 L 145/56 H Blood Pressure Mean 89 83 Blood Pressure Position Pulse Oximetry 93 92 90 Oxygen Delivery Method Nasal Cannula Nasal Cannula Nasal Cannula Oxygen Flow Rate 2 2 2 Sepsis Recent Fever Within 48 Hours Sepsis Action Taken by Nursing Oxygen Flow Rate - Titration 3 Pulse Oximetry Post Tiitration 92 08/10/19 22:45 08/10/19 23:00 08/10/19 23:15 Temperature Temperature Source Pulse Rate 61 57 L 58 L Pulse Rate [Right Radial] Pulse Rate from SpO2 Sensor 59 L 55 L 58 L Respiratory Rate 21 20 20 Respiratory Effort / Characteristics Respiratory Depth Blood Pressure 116/55 L 126/57 L 128/57 L Blood Pressure Mean 79 79 74 Blood Pressure Position Pulse Oximetry 98 98 98 Oxygen Delivery Method Nasal Cannula Nasal Cannula Nasal Cannula Oxygen Flow Rate 2 2 2 Sepsis Recent Fever Within 48 Hours Sepsis Action Taken by Nursing Oxygen Flow Rate - Titration Pulse Oximetry Post Tiitration 08/10/19 23:29 08/10/19 23:44 08/10/19 23:45 Temperature Temperature Source Pulse Rate 58 L 62 Pulse Rate [Right Radial] 57 L Pulse Rate from SpO2 Sensor 57 L 62 Respiratory Rate 20 21 22 Respiratory Effort / Characteristics Non-Labored Spontaneous Respiratory Depth Blood Pressure 139/61 140/63 Blood Pressure Mean 68 81 Blood Pressure Position Pulse Oximetry 100 100 100 Oxygen Delivery Method Nasal Cannula Nasal Cannula Nasal Cannula Oxygen Flow Rate 3 2 2 Sepsis Recent Fever Within 48 Hours Sepsis Action Taken by Nursing Oxygen Flow Rate - Titration Pulse Oximetry Post Tiitration 08/11/19 00:00 08/11/19 00:15 Temperature Temperature Source Pulse Rate 60 61 Pulse Rate [Right Radial] Pulse Rate from SpO2 Sensor 59 L 62 Respiratory Rate 23 19 Respiratory Effort / Characteristics Respiratory Depth Blood Pressure 148/67 H 146/75 H Blood Pressure Mean 91 117 Blood Pressure Position Pulse Oximetry 99 100 Oxygen Delivery Method Nasal Cannula Nasal Cannula Oxygen Flow Rate 2 2 Sepsis Recent Fever Within 48 Hours Sepsis Action Taken by Nursing Oxygen Flow Rate - Titration Pulse Oximetry Post Tiitration Home Medications Current Medication List: was personally reviewed by pa Laboratory Data Attestation: I reviewed the patient's lab results. Result diagrams: 08/10/19 21:32 08/10/19 21:32 Lab Results 08/10/19 08/10/19 08/10/19 Range/Units 21:32 21:32 21:32 WBC 7.00 (4.8-10.8) K/uL RBC 2.38 L (4.7-6.1) M/uL Hgb 7.5 L (14.0-18.0) g/dL Hct 23.9 L (42-52) % MCV 100.4 H (80-100) fL MCH 31.5 (25-34) pg MCHC 31.4 L (32-36) g/dL RDW Std Deviation 75.4 H (36.4-46.3) fL RDW Coeff of Joe 21.1 H (11.5-14.5) % Plt Count 220 (130-400) K/uL MPV 10.1 (7.4-10.4) fL Immature Gran % (Auto) 0.1 % Neut % (Auto) 70.4 % Lymph % (Auto) 12.9 % Conway % (Auto) 15.4 % Eos % (Auto) 0.9 % Baso % (Auto) 0.3 % Immature Gran # (Auto) 0.01 (0.00-0.02) K/uL Neut # (Auto) 4.93 (1.4-6.5) K/uL Lymph # (Auto) 0.90 L (1.2-3.4) K/uL Conway # (Auto) 1.08 H (0.11-0.59) K/uL Eos # (Auto) 0.06 (0-0.5) K/uL Baso # (Auto) 0.02 (0-0.2) K/uL Absolute Nucleated RBC 0.05 H (0-0) K/uL Nucleated RBC % (auto) 0.7 % Tear Drop Cells 1+ PT 21.2 H (9.0-12.0) Seconds INR 2.1 H (0.9-1.1) APTT 29.0 (21.0-31.0) Seconds PTT Ratio 1.0 ABG pH (7.35-7.45) ABG pCO2 (35-46) mmHg ABG pO2 (80-95) mmHg ABG HCO3 (19-24) mmol/L ABG O2 Saturation (90-95) % ABG Base Excess (-9-1.8) mEq/L Pito Test (Pos) Barometric Pressure mm/Hg Oxygen Given Sodium 139 (136-145) mmol/L Potassium 3.1 L (3.5-5.1) mmol/L Chloride 104 (98-107) mmol/L Carbon Dioxide 27 (21-32) mmol/L Anion Gap 8.0 (3-11) BUN 49 H (7-18) mg/dl Creatinine 1.83 H (0.6-1.4) mg/dl Est Cr Clr Drug Dosing 46.2 ml/min Est GFR ( Amer) 42.7 Est GFR (Non-Af Amer) 36.8 BUN/Creatinine Ratio 27.0 H (10-20) Glucose 45 L* (70-99) mg/dl POC Glucose (70-99) mg/dl Calcium 8.0 L (8.5-10.1) mg/dl Magnesium (1.8-2.4) mg/dl Total Bilirubin 0.7 (0.2-1) mg/dl AST 25 (15-37) U/L ALT 28 (12-78) U/L Alkaline Phosphatase 106 (45-117) U/L Troponin I 0.020 (0-0.045) ng/ml Total Protein 6.2 L (6.4-8.2) gm/dl Albumin 3.1 L (3.4-5.0) gm/dl Globulin 3.1 (2.5-4.0) gm/dl Albumin/Globulin Ratio 1.0 (0.9-2) Digoxin (0.8-2.0) ng/ml Blood Type Antibody Screen Crossmatch 08/10/19 08/10/19 08/10/19 Range/Units 22:34 22:35 22:36 WBC (4.8-10.8) K/uL RBC (4.7-6.1) M/uL Hgb (14.0-18.0) g/dL Hct (42-52) % MCV (80-100) fL MCH (25-34) pg MCHC (32-36) g/dL RDW Std Deviation (36.4-46.3) fL RDW Coeff of Joe (11.5-14.5) % Plt Count (130-400) K/uL MPV (7.4-10.4) fL Immature Gran % (Auto) % Neut % (Auto) % Lymph % (Auto) % Conway % (Auto) % Eos % (Auto) % Baso % (Auto) % Immature Gran # (Auto) (0.00-0.02) K/uL Neut # (Auto) (1.4-6.5) K/uL Lymph # (Auto) (1.2-3.4) K/uL Conway # (Auto) (0.11-0.59) K/uL Eos # (Auto) (0-0.5) K/uL Baso # (Auto) (0-0.2) K/uL Absolute Nucleated RBC (0-0) K/uL Nucleated RBC % (auto) % Tear Drop Cells PT (9.0-12.0) Seconds INR (0.9-1.1) APTT (21.0-31.0) Seconds PTT Ratio ABG pH (7.35-7.45) ABG pCO2 (35-46) mmHg ABG pO2 (80-95) mmHg ABG HCO3 (19-24) mmol/L ABG O2 Saturation (90-95) % ABG Base Excess (-9-1.8) mEq/L Pito Test (Pos) Barometric Pressure mm/Hg Oxygen Given Sodium (136-145) mmol/L Potassium (3.5-5.1) mmol/L Chloride (98-107) mmol/L Carbon Dioxide (21-32) mmol/L Anion Gap (3-11) BUN (7-18) mg/dl Creatinine (0.6-1.4) mg/dl Est Cr Clr Drug Dosing ml/min Est GFR ( Amer) Est GFR (Non-Af Amer) BUN/Creatinine Ratio (10-20) Glucose (70-99) mg/dl POC Glucose 51 L* 428 H* 266 H (70-99) mg/dl Calcium (8.5-10.1) mg/dl Magnesium (1.8-2.4) mg/dl Total Bilirubin (0.2-1) mg/dl AST (15-37) U/L ALT (12-78) U/L Alkaline Phosphatase (45-117) U/L Troponin I (0-0.045) ng/ml Total Protein (6.4-8.2) gm/dl Albumin (3.4-5.0) gm/dl Globulin (2.5-4.0) gm/dl Albumin/Globulin Ratio (0.9-2) Digoxin (0.8-2.0) ng/ml Blood Type Antibody Screen Crossmatch 08/10/19 08/10/19 08/10/19 Range/Units 22:48 23:21 23:36 WBC (4.8-10.8) K/uL RBC (4.7-6.1) M/uL Hgb (14.0-18.0) g/dL Hct (42-52) % MCV (80-100) fL MCH (25-34) pg MCHC (32-36) g/dL RDW Std Deviation (36.4-46.3) fL RDW Coeff of Joe (11.5-14.5) % Plt Count (130-400) K/uL MPV (7.4-10.4) fL Immature Gran % (Auto) % Neut % (Auto) % Lymph % (Auto) % Conway % (Auto) % Eos % (Auto) % Baso % (Auto) % Immature Gran # (Auto) (0.00-0.02) K/uL Neut # (Auto) (1.4-6.5) K/uL Lymph # (Auto) (1.2-3.4) K/uL Conway # (Auto) (0.11-0.59) K/uL Eos # (Auto) (0-0.5) K/uL Baso # (Auto) (0-0.2) K/uL Absolute Nucleated RBC (0-0) K/uL Nucleated RBC % (auto) % Tear Drop Cells PT (9.0-12.0) Seconds INR (0.9-1.1) APTT (21.0-31.0) Seconds PTT Ratio ABG pH (7.35-7.45) ABG pCO2 (35-46) mmHg ABG pO2 (80-95) mmHg ABG HCO3 (19-24) mmol/L ABG O2 Saturation (90-95) % ABG Base Excess (-9-1.8) mEq/L Pito Test (Pos) Barometric Pressure mm/Hg Oxygen Given Sodium (136-145) mmol/L Potassium (3.5-5.1) mmol/L Chloride (98-107) mmol/L Carbon Dioxide (21-32) mmol/L Anion Gap (3-11) BUN (7-18) mg/dl Creatinine (0.6-1.4) mg/dl Est Cr Clr Drug Dosing ml/min Est GFR ( Amer) Est GFR (Non-Af Amer) BUN/Creatinine Ratio (10-20) Glucose (70-99) mg/dl POC Glucose 173 H 109 H (70-99) mg/dl Calcium (8.5-10.1) mg/dl Magnesium (1.8-2.4) mg/dl Total Bilirubin (0.2-1) mg/dl AST (15-37) U/L ALT (12-78) U/L Alkaline Phosphatase (45-117) U/L Troponin I (0-0.045) ng/ml Total Protein (6.4-8.2) gm/dl Albumin (3.4-5.0) gm/dl Globulin (2.5-4.0) gm/dl Albumin/Globulin Ratio (0.9-2) Digoxin 0.8 (0.8-2.0) ng/ml Blood Type Antibody Screen Crossmatch 08/10/19 08/10/19 08/10/19 Range/Units 23:37 23:37 23:37 WBC (4.8-10.8) K/uL RBC (4.7-6.1) M/uL Hgb (14.0-18.0) g/dL Hct (42-52) % MCV (80-100) fL MCH (25-34) pg MCHC (32-36) g/dL RDW Std Deviation (36.4-46.3) fL RDW Coeff of Joe (11.5-14.5) % Plt Count (130-400) K/uL MPV (7.4-10.4) fL Immature Gran % (Auto) % Neut % (Auto) % Lymph % (Auto) % Conway % (Auto) % Eos % (Auto) % Baso % (Auto) % Immature Gran # (Auto) (0.00-0.02) K/uL Neut # (Auto) (1.4-6.5) K/uL Lymph # (Auto) (1.2-3.4) K/uL Conway # (Auto) (0.11-0.59) K/uL Eos # (Auto) (0-0.5) K/uL Baso # (Auto) (0-0.2) K/uL Absolute Nucleated RBC (0-0) K/uL Nucleated RBC % (auto) % Tear Drop Cells PT (9.0-12.0) Seconds INR (0.9-1.1) APTT (21.0-31.0) Seconds PTT Ratio ABG pH 7.40 (7.35-7.45) ABG pCO2 46 (35-46) mmHg ABG pO2 120 H (80-95) mmHg ABG HCO3 28 H (19-24) mmol/L ABG O2 Saturation 98.3 H (90-95) % ABG Base Excess 2.6 H (-9-1.8) mEq/L Pito Test POS (Pos) Barometric Pressure 734.3 mm/Hg Oxygen Given 2L Sodium (136-145) mmol/L Potassium (3.5-5.1) mmol/L Chloride (98-107) mmol/L Carbon Dioxide (21-32) mmol/L Anion Gap (3-11) BUN (7-18) mg/dl Creatinine (0.6-1.4) mg/dl Est Cr Clr Drug Dosing ml/min Est GFR ( Amer) Est GFR (Non-Af Amer) BUN/Creatinine Ratio (10-20) Glucose (70-99) mg/dl POC Glucose (70-99) mg/dl Calcium (8.5-10.1) mg/dl Magnesium 2.1 (1.8-2.4) mg/dl Total Bilirubin (0.2-1) mg/dl AST (15-37) U/L ALT (12-78) U/L Alkaline Phosphatase (45-117) U/L Troponin I 0.020 (0-0.045) ng/ml Total Protein (6.4-8.2) gm/dl Albumin (3.4-5.0) gm/dl Globulin (2.5-4.0) gm/dl Albumin/Globulin Ratio (0.9-2) Digoxin (0.8-2.0) ng/ml Blood Type AB Positive Antibody Screen NEGATIVE Crossmatch See Detail Administered Medications Discontinued Medications Albuterol (Duoneb) 3 ml NEB NOW STA Stop: 08/10/19 23:19 Last Admin: 08/10/19 23:28 Dose: 3 ml Documented by: [id number] Dextrose (Dextrose 50%) Confirm Administered Dose 50 ml IV .STK-MED ONE Stop: 08/10/19 22:33 Last Admin: 08/10/19 22:40 Dose: 50 ml Documented by: [id number] Furosemide (Lasix) 40 mg IV NOW STA Stop: 08/10/19 23:16 Last Admin: 08/10/19 23:35 Dose: 40 mg Documented by: [id number] Potassium Chloride (K Damion / Wtr) 10 meq in 100 mls @ 100 mls/hr IV Q1H ASHLEIGH Stop: 08/11/19 01:14 Last Admin: 08/11/19 01:53 Dose: 100 mls/hr Documented by: [id number] Infusion: 08/11/19 01:19 Dose: 0 mls/hr Documented by: [id number] Infusion: 08/10/19 23:41 Dose: 50 mls/hr Documented by: [id number] Admin: 08/10/19 23:40 Dose: 100 mls/hr Documented by: [id number] Phytonadione 5 mg/ Sodium (Chloride) 50.5 mls @ 101 mls/hr IV ONE ONE Stop: 08/11/19 00:59 Last Infusion: 08/11/19 01:53 Dose: 0 mls/hr Documented by: [id number] Admin: 08/11/19 01:21 Dose: 101 mls/hr Documented by: [id number] Potassium Chloride (Klor-Con M20) 40 meq PO NOW STA Stop: 08/10/19 23:16 Last Admin: 08/10/19 23:35 Dose: 40 meq Documented by: [id number] Discharge Plan Visit Data *Final* Discharge Date/Time: 08/11/19 01:45 Chief Complaint: Chest Pain Stated Complaint: chest pain ED Provider: Ton Merchant Discharge Problem: CHF (congestive heart failure), Hypoglycemia, Hypoxia, Hypokalemia Patient Disposition: Admitted As Inpatient Discharge Instructions Interventions: ED Discharge Assessment Last Done: 08/11/19 01:45 Discharge Problem: CHF (congestive heart failure) Qualifiers: Heart failure type: unspecified Heart failure chronicity: acute Qualified Code(s): I50.9 - Heart failure, unspecified
[2019-08-11] MEDS: POTASSIUM CHLORIDE / WTR 10 MEQ/100 ML PLCT IV SCH (01:53)
[2019-08-11] MEDS ORDERED: TRAMADOL HCL 50 MG TABLET PO PRN (02:16)
[2019-08-11] MEDS ORDERED: GLUCOSE 40% GEL 15 GM TUBE PO PRN (02:16)
[2019-08-11] MEDS ORDERED: HYDROmorphone INJ 0.5 MG/0.5 ML SYR IV PRN (02:16)
[2019-08-11] MEDS ORDERED: CARBOHYDRATES FOR HYPOGLYCEMIA PO PRN (02:16)
[2019-08-11] MEDS ORDERED: GLUCAGON FOR INJ 1 MG VIAL SQ PRN (02:16)
[2019-08-11] MEDS ORDERED: POTASSIUM CHLORIDE 20 MEQ TABCR PO STA (02:16)
[2019-08-11] MEDS ORDERED: SODIUM CHLORIDE 0.9% 250 ML IV PRN (02:16)
[2019-08-11] MEDS ORDERED: DEXTROSE 50% 50 ML SYRINGE IV PRN (02:16)
[2019-08-11] MEDS ORDERED: ACETAMINOPHEN 325 MG TAB PO PRN (02:16)
[2019-08-11] MEDS ORDERED: GLUCOSE 10 TABS/TUBE PO PRN (02:16)
[2019-08-11] MEDS ORDERED: NITROGLYCERIN SL 0.4 MG/TAB TAB SL PRN (02:16)
[2019-08-11] MEDS ORDERED: POTASSIUM CHLORIDE 10 MEQ TABCR PO ONE (03:00)
[2019-08-11] MEDS: PANTOprazole 40 MG TAB PO SCH ×3 (03:27→20:06)
[2019-08-11] MEDS: INSULIN ASPART 100 UNITS/ML 3 ML PEN SC SCH ×5 (03:41→20:30)
[2019-08-11 04:16] LABS: Appearance Urine Cloudy (Clear); Bilirubin Urine Negative (Negative); Blood Urine 2+ (Negative); Color Urine Yellow; Glucose Urine UA Negative (Negative); Ketones Urine Negative (Negative); Leukocyte Esterase Urine 2+ (Negative); Nitrite Urine Negative (Negative); Protein Urine Negative (Negative); Specific Gravity Urine 1.011 (1.000-1.030); Urobilinogen Urine Negative (Negative); WBC Urine Automated >30 /hpf (0-5)
[2019-08-11 04:39] LABS: Mucus Urine Present (None Prsent)
[2019-08-11 04:41] LABS: Bacteria Urine Automated 1+ (Negative)
[2019-08-11] MEDS ORDERED: CEFEPIME CONSULT ACTIVE PRN (07:32)
[2019-08-11 08:00] LABS: Basophils # (auto) 0.01 K/uL (0-0.2); Basophils % (auto) 0.2 %; Eosinophils # (auto) 0.01 K/uL (0-0.5); Eosinophils % (auto) 0.2 %; Hematocrit (blood only) 26.6 % (42-52); Hemoglobin 8.3 g/dL (14.0-18.0); Immature Granulocytes # (auto) 0.01 K/uL (0.00-0.02); Immature Granulocytes % (auto) 0.2 %; Lymphocytes # (auto) 0.59 K/uL (1.2-3.4); Lymphocytes % (auto) 9.7 %; Mean Corpuscular Hgb Conc 31.2 g/dL (32-36); Mean Corpuscular Volume 99.3 fL (80-100); Monocytes # (auto) 0.56 K/uL (0.11-0.59); Monocytes % (auto) 9.2 %; Neutrophils % (auto) 80.5 %; Nucleated RBC # (auto) 0.05 K/uL (0-0); Nucleated RBC % (auto) 0.8 %; Platelet Count 201 K/uL (130-400); RDW Coefficient of Variation 20.4 % (11.5-14.5); RDW Standard Deviation 71.3 fL (36.4-46.3); Red Blood Count 2.68 M/uL (4.7-6.1); White Blood Count 6.08 K/uL (4.8-10.8)
[2019-08-11] MEDS: allopurinoL 300 MG TAB PO SCH (08:07)
[2019-08-11] MEDS: allopurinoL 100 MG TAB PO SCH (08:07)
[2019-08-11] MEDS: AMIODARONE 200 MG TAB PO SCH ×2 (08:07→20:06)
[2019-08-11] MEDS: VENLAFAXINE HCL XR 150 MG CAPXR PO SCH ×2 (08:07→20:06)
[2019-08-11] MEDS: METOPROLOL SUCC 25MG EXT REL TAB PO SCH ×2 (08:07→20:07)
[2019-08-11 08:12] LABS: INR 1.7 (0.9-1.1); Prothrombin Time 17.9 Seconds (9.0-12.0)
[2019-08-11] MEDS: CEFEPIME 2,000 MG in SYRINGE 7.5 ML IV SCH (08:25)
[2019-08-11 09:11] LABS: Anisocytosis Present
[2019-08-11] MEDS ORDERED: PHARMACY GLYCEMIC MGMT CONSULT PRN (09:41)
--- NOTE | 2019-08-11 09:49 | Gastrointestinal Consultation ---
Date of Consultation August 11, 2019 Assessment & Plan (1) Anemia: Patient with a history of anemia on anticoagulation. It appears he has been Hemoccult negative in the past but we are certainly happy to provide endoscopic evaluation to screen for occult colonic or digestive lesions are these be negative it may be prudent to further evaluate the hematuria as noted on his recent UA Recommendations Upper endoscopy and colonoscopy to be arranged for early next week (monday) Clear liquid diet on Monday Bowel prep to be given on Monday evening History of Present Illness Reason for Consultation: [email or web address] Requesting Physician: Dr. Horvath Attending Physician: Arjun Horvath MD History of Present Illness 69 year old male with history of dyslipidemia, T2DM, hyperparathyroidism, ANTOINETTE, HTN, afib on coumain who presents through the ED with progressive weakness, fatigue, SOB, fall at home admitted with anemia. GI asked to re-evaluate for anemia. Pt was seen and evaluated, chart reviewed. He notes a change in coumdin dosing about 2/3 months ago but normal INRs after. He also denies any change in his appetite or dietary changes in the past few months. No abdominal pain. No nausea, vomiting. Denies any change in his bowel habits. No black or bloody stools. Reports brown stools. Denies any abnormal bruising. No nose bleeds. No blood in urine. No fever, chills. Some SOB. No CP. The patient reports his last colonoscopy was performed about 9 years ago during which time he was found to have a number of colonic polyps. He had been seen by 1 of my partners earlier this week had suggested an outpatient upper endoscopy and colonoscopy Allergies Allergy/AdvReac Type Severity Reaction Status Date / Time Penicillins Allergy Mild childhood Verified 08/10/19 23:04 reaction codeine AdvReac Mild NAUSEA, Verified 08/10/19 23:04 LIGHTHEADEDNESS simvastatin AdvReac Mild makes him Verified 08/10/19 23:04 feel like he is high Home Medications Home Medications Medication Instructions Recorded Confirmed Type aspirin 81 mg PO QAM 01/25/18 08/10/19 History atorvastatin 40 mg PO QPM 01/25/18 08/10/19 History allopurinol 100 mg PO QAM 09/11/18 08/10/19 History allopurinol 300 mg PO QAM 09/26/18 08/10/19 History insulin glargine 100 unit/mL (3 45 units SUBCUT QAM ml 12/17/18 08/10/19 History mL) subcutaneous pen metoprolol succinate 100 mg PO BID 01/21/19 08/10/19 History nitroglycerin 0.4 mg SUBLINGUAL UD PRN 01/21/19 08/10/19 History venlafaxine 150 mg PO BID 01/21/19 08/10/19 History insulin aspart U-100 100 unit/mL 0 units SQ ACHS ml 01/30/19 08/10/19 History (3 mL) subcutaneous pen meclizine 12.5 mg tablet 12.5 mg PO TID PRN 01/30/19 08/10/19 History sacubitril 97 mg-valsartan 103 mg 1 tab PO BID 90 Days #180 tab 01/30/19 08/10/19 Rx tablet bumetanide 4 mg PO QAM 02/27/19 08/10/19 History potassium chloride 10 meq PO BID 02/27/19 08/10/19 History digoxin 125 mcg (0.125 mg) tablet 125 mcg PO Q2D #45 tab 03/19/19 08/11/19 Rx amiodarone 200 mg tablet 200 mg PO BID #180 tab 05/16/19 08/10/19 Rx lorazepam 0.5 mg tablet 0.5 mg PO DAILY PRN #30 tab 07/25/19 08/10/19 Rx bumetanide 2 mg PO .DAILY@LUNCH PRN 08/05/19 08/10/19 History cholecalciferol (vitamin D3) 125 mcg PO 2XWK 08/05/19 08/10/19 History tramadol 50 mg PO Q6H PRN 08/05/19 08/10/19 History pantoprazole [Protonix] 40 mg PO BID #60 tab 08/07/19 08/10/19 Rx Patient History Medical History Anxiety (Inactive) Atrial fibrillation, chronic (Chronic) CAD (coronary artery disease) (Chronic) stenting to LAD in 1994 and 1996 stenting to RCA and LAD in 2007 CKD (chronic kidney disease) (Acute) Congestive heart failure (Resolved) Depression with anxiety (Chronic) Diabetes mellitus type II, controlled (Chronic) Diabetic neuropathy (Chronic) Dyslipidemia (Chronic) Gout HTN (hypertension) (Chronic) Ischemic dilated cardiomyopathy (Inactive) intermediate current use of anticoagulant (Chronic) warfarin daily Myocardial Infarction (Resolved) 1989. CARDIAC CATH WITH 2 STENTS ANTOINETTE on CPAP (Chronic) Systolic and diastolic CHF, chronic (Chronic) Surgical History AICD (automatic cardioverter/defibrillator) present (Chronic) placed on 10/24/17 [employer] DEVICE. LAST CHECKED [address] DOMINGUEZ[facility]. PLACED IN OCTOBER 2017 AT [facility] History of bowel resection (Resolved) MASSIVE POLPYS History of cardiac cath (Inactive) 1989 --> X2 STENTS. BARE METAL STENTS ~1992 --> X2 STENTS. DRUG ELUTING STENTS. 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 Beliefs That Will Affect Care: None marital status: Current Living Situation: Spouse Other Information That Helps Us Care for You: No Feels Safe at Home: Yes Safety Concerns: Feels Safe At This Time Smoking Status: Never smoker Second Hand Exposure: No ; Hx Alcohol Use: No Hx Substance Use: No Review of Systems Constitutional: no sweats, no malaise and no weight loss Eyes: no diplopia Ear, Nose, Mouth, Throat: no foul smell and no facial pain Respiratory: + dyspnea; no cough and no hemoptysis Cardiovascular: no chest pain with activity Gastrointestinal: no bloating, no nausea, no hematemesis, no change in stools, no fecal incontinence and no melena Genitourinary: no urinary frequency Musculoskeletal: + limited range of motion Neurologic: no falls Psychiatric: no hopelessness Endocrine: no polydipsia Hematologic / Lymphatic: + easy bleeding and + coagulopathy Physical Exam Constitutional: WD/WN, vitals as above Eyes: PERRL, conjunctivae normal, anicteric sclerae Neck: trachea midline, no thyromegaly Respiratory: no respiratory distress and does not use accessory muscles Auscultation: + diminished lung sounds and + crackles Cardiovascular: Heart Sounds: + murmur Gastrointestinal (Abdomen): Percussion/Palpation: abdomen soft; abdomen nontender and no guarding Skin: Bilateral LE edema Neurologic: no focal motor deficits Results & Data ([facility]) Vital Signs (Past 12 Hours) Vital Signs Temp Pulse Pulse Resp BP BP Pulse Ox 08/11/19 07:47 36.5 C 65 18 130/72 94 08/11/19 06:45 36.6 C 64 18 137/72 95 08/11/19 05:40 36.5 C 64 18 124/74 95 08/11/19 05:15 36.5 C 64 18 124/74 95 08/11/19 04:40 36.4 C L 64 18 143/82 H 96 08/11/19 04:10 60 22 147/94 H 93 08/11/19 03:55 36.6 C 62 20 148/73 H 95 08/11/19 03:30 36.5 C 88 20 130/72 98 08/11/19 02:23 36.5 C 68 20 100/50 L 95 08/11/19 02:12 63 08/11/19 01:31 78 22 147/62 H 100 08/11/19 01:15 59 L 19 141/65 H 100 08/11/19 01:00 56 L 19 149/69 H 100 08/11/19 00:45 59 L 20 136/69 99 08/11/19 00:30 59 L 20 132/68 100 08/11/19 00:15 61 19 146/75 H 100 08/11/19 00:00 60 23 148/67 H 99 08/10/19 23:45 62 22 140/63 100 08/10/19 23:44 58 L 21 139/61 100 08/10/19 23:29 57 L 20 100 08/10/19 23:15 58 L 20 128/57 L 98 08/10/19 23:00 57 L 20 126/57 L 98 08/10/19 22:45 61 21 116/55 L 98 08/10/19 22:41 90 08/10/19 22:30 62 25 H 145/56 H 92 08/10/19 22:15 60 24 140/57 L 93 08/10/19 22:10 66 28 H 147/66 H 92 08/10/19 22:02 94 08/10/19 21:57 36.5 C 71 20 138/56 L 94 Laboratory Results Laboratory Results - last 24 hr 08/10/19 08/10/19 08/10/19 21:32 21:32 21:32 WBC 7.00 RBC 2.38 L Hgb 7.5 L Hct 23.9 L MCV 100.4 H MCH 31.5 MCHC 31.4 L RDW Std Deviation 75.4 H RDW Coeff of Joe 21.1 H Plt Count 220 MPV 10.1 Immature Gran % (Auto) 0.1 Neut % (Auto) 70.4 Lymph % (Auto) 12.9 [place] % (Auto) 15.4 Eos % (Auto) 0.9 Baso % (Auto) 0.3 Immature Gran # (Auto) 0.01 Neut # (Auto) 4.93 Lymph # (Auto) 0.90 L [place] # (Auto) 1.08 H Eos # (Auto) 0.06 Baso # (Auto) 0.02 Absolute Nucleated RBC 0.05 H Nucleated RBC % (auto) 0.7 Anisocytosis Tear Drop Cells 1+ PT 21.2 H INR 2.1 H APTT 29.0 PTT Ratio 1.0 ABG pH ABG pCO2 ABG pO2 ABG HCO3 ABG O2 Saturation ABG Base Excess Pito Test Barometric Pressure Oxygen Given Sodium 139 Potassium 3.1 L Chloride 104 Carbon Dioxide 27 Anion Gap 8.0 BUN 49 H Creatinine 1.83 H Est Cr Clr Drug Dosing 46.2 Est GFR ( Amer) 42.7 Est GFR (Non-Af Amer) 36.8 BUN/Creatinine Ratio 27.0 H Glucose 45 L* POC Glucose Calcium 8.0 L Magnesium Total Bilirubin 0.7 AST 25 ALT 28 Alkaline Phosphatase 106 Ammonia Troponin I 0.020 Total Protein 6.2 L Albumin 3.1 L Globulin 3.1 Albumin/Globulin Ratio 1.0 Urine Color Urine Appearance Urine pH Ur Specific [place] Urine Protein Urine Glucose (UA) Urine Ketones Urine Blood Urine Nitrite Urine Bilirubin Urine Urobilinogen Ur Leukocyte Esterase Urine WBC (Auto) Urine RBC (Auto) U Hyaline Cast (Auto) U Epithel Cells (Auto) Urine Bacteria (Auto) Urine Mucus Urine Yeast Digoxin Blood Type Antibody Screen Crossmatch 08/10/19 08/10/19 08/10/19 22:34 22:35 22:36 WBC RBC Hgb Hct MCV MCH MCHC RDW Std Deviation RDW Coeff of Joe Plt Count MPV Immature Gran % (Auto) Neut % (Auto) Lymph % (Auto) [place] % (Auto) Eos % (Auto) Baso % (Auto) Immature Gran # (Auto) Neut # (Auto) Lymph # (Auto) [place] # (Auto) Eos # (Auto) Baso # (Auto) Absolute Nucleated RBC Nucleated RBC % (auto) Anisocytosis Tear Drop Cells PT INR APTT PTT Ratio ABG pH ABG pCO2 ABG pO2 ABG HCO3 ABG O2 Saturation ABG Base Excess Pito Test Barometric Pressure Oxygen Given Sodium Potassium Chloride Carbon Dioxide Anion Gap BUN Creatinine Est Cr Clr Drug Dosing Est GFR ( Amer) Est GFR (Non-Af Amer) BUN/Creatinine Ratio Glucose POC Glucose 51 L* 428 H* 266 H Calcium Magnesium Total Bilirubin AST ALT Alkaline Phosphatase Ammonia Troponin I Total Protein Albumin Globulin Albumin/Globulin Ratio Urine Color Urine Appearance Urine pH Ur Specific [place] Urine Protein Urine Glucose (UA) Urine Ketones Urine Blood Urine Nitrite Urine Bilirubin Urine Urobilinogen Ur Leukocyte Esterase Urine WBC (Auto) Urine RBC (Auto) U Hyaline Cast (Auto) U Epithel Cells (Auto) Urine Bacteria (Auto) Urine Mucus Urine Yeast Digoxin Blood Type Antibody Screen Crossmatch 08/10/19 08/10/19 08/10/19 22:48 23:21 23:36 WBC RBC Hgb Hct MCV MCH MCHC RDW Std Deviation RDW Coeff of Joe Plt Count MPV Immature Gran % (Auto) Neut % (Auto) Lymph % (Auto) [place] % (Auto) Eos % (Auto) Baso % (Auto) Immature Gran # (Auto) Neut # (Auto) Lymph # (Auto) [place] # (Auto) Eos # (Auto) Baso # (Auto) Absolute Nucleated RBC Nucleated RBC % (auto) Anisocytosis Tear Drop Cells PT INR APTT PTT Ratio ABG pH ABG pCO2 ABG pO2 ABG HCO3 ABG O2 Saturation ABG Base Excess Pito Test Barometric Pressure Oxygen Given Sodium Potassium Chloride Carbon Dioxide Anion Gap BUN Creatinine Est Cr Clr Drug Dosing Est GFR ( Amer) Est GFR (Non-Af Amer) BUN/Creatinine Ratio Glucose POC Glucose 173 H 109 H Calcium Magnesium Total Bilirubin AST ALT Alkaline Phosphatase Ammonia Troponin I Total Protein Albumin Globulin Albumin/Globulin Ratio Urine Color Urine Appearance Urine pH Ur Specific [place] Urine Protein Urine Glucose (UA) Urine Ketones Urine Blood Urine Nitrite Urine Bilirubin Urine Urobilinogen Ur Leukocyte Esterase Urine WBC (Auto) Urine RBC (Auto) U Hyaline Cast (Auto) U Epithel Cells (Auto) Urine Bacteria (Auto) Urine Mucus Urine Yeast Digoxin 0.8 Blood Type Antibody Screen Crossmatch 08/10/19 08/10/19 08/10/19 23:37 23:37 23:37 WBC RBC Hgb Hct MCV MCH MCHC RDW Std Deviation RDW Coeff of Joe Plt Count MPV Immature Gran % (Auto) Neut % (Auto) Lymph % (Auto) [place] % (Auto) Eos % (Auto) Baso % (Auto) Immature Gran # (Auto) Neut # (Auto) Lymph # (Auto) [place] # (Auto) Eos # (Auto) Baso # (Auto) Absolute Nucleated RBC Nucleated RBC % (auto) Anisocytosis Tear Drop Cells PT INR APTT PTT Ratio ABG pH 7.40 ABG pCO2 46 ABG pO2 120 H ABG HCO3 28 H ABG O2 Saturation 98.3 H ABG Base Excess 2.6 H Pito Test POS Barometric Pressure 734.3 Oxygen Given 2L Sodium Potassium Chloride Carbon Dioxide Anion Gap BUN Creatinine Est Cr Clr Drug Dosing Est GFR ( Amer) Est GFR (Non-Af Amer) BUN/Creatinine Ratio Glucose POC Glucose Calcium Magnesium 2.1 Total Bilirubin AST ALT Alkaline Phosphatase Ammonia Troponin I 0.020 Total Protein Albumin Globulin Albumin/Globulin Ratio Urine Color Urine Appearance Urine pH Ur Specific [place] Urine Protein Urine Glucose (UA) Urine Ketones Urine Blood Urine Nitrite Urine Bilirubin Urine Urobilinogen Ur Leukocyte Esterase Urine WBC (Auto) Urine RBC (Auto) U Hyaline Cast (Auto) U Epithel Cells (Auto) Urine Bacteria (Auto) Urine Mucus Urine Yeast Digoxin Blood Type AB Positive Antibody Screen NEGATIVE Crossmatch See Detail 08/11/19 08/11/19 08/11/19 00:33 03:40 03:45 WBC RBC Hgb Hct MCV MCH MCHC RDW Std Deviation RDW Coeff of Joe Plt Count MPV Immature Gran % (Auto) Neut % (Auto) Lymph % (Auto) [place] % (Auto) Eos % (Auto) Baso % (Auto) Immature Gran # (Auto) Neut # (Auto) Lymph # (Auto) [place] # (Auto) Eos # (Auto) Baso # (Auto) Absolute Nucleated RBC Nucleated RBC % (auto) Anisocytosis Tear Drop Cells PT INR APTT PTT Ratio ABG pH ABG pCO2 ABG pO2 ABG HCO3 ABG O2 Saturation ABG Base Excess Pito Test Barometric Pressure Oxygen Given Sodium Potassium Chloride Carbon Dioxide Anion Gap BUN Creatinine Est Cr Clr Drug Dosing Est GFR ( Amer) Est GFR (Non-Af Amer) BUN/Creatinine Ratio Glucose POC Glucose 107 H 134 H Calcium Magnesium Total Bilirubin AST ALT Alkaline Phosphatase Ammonia Troponin I Total Protein Albumin Globulin Albumin/Globulin Ratio Urine Color Yellow Urine Appearance Cloudy A Urine pH 6.0 Ur Specific [place] 1.011 Urine Protein Negative Urine Glucose (UA) Negative Urine Ketones Negative Urine Blood 2+ H Urine Nitrite Negative Urine Bilirubin Negative Urine Urobilinogen Negative Ur Leukocyte Esterase 2+ H Urine WBC (Auto) >30 H Urine RBC (Auto) 10-30 H U Hyaline Cast (Auto) 1-5 U Epithel Cells (Auto) 5-10 H Urine Bacteria (Auto) 1+ H Urine Mucus Present A Urine Yeast Not Reportable Digoxin Blood Type Antibody Screen Crossmatch 08/11/19 08/11/19 08/11/19 07:46 07:46 07:46 WBC 6.08 RBC 2.68 L Hgb 8.3 L Hct 26.6 L MCV 99.3 MCH 31.0 MCHC 31.2 L RDW Std Deviation 71.3 H RDW Coeff of Joe 20.4 H Plt Count 201 MPV 10.0 Immature Gran % (Auto) 0.2 Neut % (Auto) 80.5 Lymph % (Auto) 9.7 [place] % (Auto) 9.2 Eos % (Auto) 0.2 Baso % (Auto) 0.2 Immature Gran # (Auto) 0.01 Neut # (Auto) 4.90 Lymph # (Auto) 0.59 L [place] # (Auto) 0.56 Eos # (Auto) 0.01 Baso # (Auto) 0.01 Absolute Nucleated RBC 0.05 H Nucleated RBC % (auto) 0.8 Anisocytosis Present Tear Drop Cells PT 17.9 H INR 1.7 H APTT PTT Ratio ABG pH ABG pCO2 ABG pO2 ABG HCO3 ABG O2 Saturation ABG Base Excess Pito Test Barometric Pressure Oxygen Given Sodium Potassium Chloride Carbon Dioxide Anion Gap BUN Creatinine Est Cr Clr Drug Dosing Est GFR ( Amer) Est GFR (Non-Af Amer) BUN/Creatinine Ratio Glucose POC Glucose Calcium Magnesium Total Bilirubin AST ALT Alkaline Phosphatase Ammonia 40.3 H Troponin I Total Protein Albumin Globulin Albumin/Globulin Ratio Urine Color Urine Appearance Urine pH Ur Specific [place] Urine Protein Urine Glucose (UA) Urine Ketones Urine Blood Urine Nitrite Urine Bilirubin Urine Urobilinogen Ur Leukocyte Esterase Urine WBC (Auto) Urine RBC (Auto) U Hyaline Cast (Auto) U Epithel Cells (Auto) Urine Bacteria (Auto) Urine Mucus Urine Yeast Digoxin Blood Type Antibody Screen Crossmatch 08/11/19 08:13 WBC RBC Hgb Hct MCV MCH MCHC RDW Std Deviation RDW Coeff of Joe Plt Count MPV Immature Gran % (Auto) Neut % (Auto) Lymph % (Auto) [place] % (Auto) Eos % (Auto) Baso % (Auto) Immature Gran # (Auto) Neut # (Auto) Lymph # (Auto) [place] # (Auto) Eos # (Auto) Baso # (Auto) Absolute Nucleated RBC Nucleated RBC % (auto) Anisocytosis Tear Drop Cells PT INR APTT PTT Ratio ABG pH ABG pCO2 ABG pO2 ABG HCO3 ABG O2 Saturation ABG Base Excess Pito Test Barometric Pressure Oxygen Given Sodium Potassium Chloride Carbon Dioxide Anion Gap BUN Creatinine Est Cr Clr Drug Dosing Est GFR ( Amer) Est GFR (Non-Af Amer) BUN/Creatinine Ratio Glucose POC Glucose 101 H Calcium Magnesium Total Bilirubin AST ALT Alkaline Phosphatase Ammonia Troponin I Total Protein Albumin Globulin Albumin/Globulin Ratio Urine Color Urine Appearance Urine pH Ur Specific [place] Urine Protein Urine Glucose (UA) Urine Ketones Urine Blood Urine Nitrite Urine Bilirubin Urine Urobilinogen Ur Leukocyte Esterase Urine WBC (Auto) Urine RBC (Auto) U Hyaline Cast (Auto) U Epithel Cells (Auto) Urine Bacteria (Auto) Urine Mucus Urine Yeast Digoxin Blood Type Antibody Screen Crossmatch
--- NOTE | 2019-08-11 09:54 | Electrocardiogram Report ---
Test Reason : Blood Pressure : / mmHG Vent. Rate : 070 BPM Atrial Rate : 288 BPM P-R Int : 000 ms QRS Dur : 104 ms QT Int : 398 ms P-R-T Axes : 000 068 -81 degrees QTc Int : 429 ms Atrial fibrillation Low voltage QRS Anteroseptal infarct (cited on or before 27-FEB-2019) Abnormal ECG When compared with ECG of 06-AUG-2019 07:52, No significant change was found Confirmed by Aneglo Hayward ([id number]) on 08/11/2019 9:53:40 AM Referred By: REFERRED SELF Confirmed By:Angelo Hayward
--- NOTE | 2019-08-11 10:05 | Pharmacy Report ---
Pharmacy Glycemic Short Note 2 - Date of Service August 11, 2019 - Glycemic Short BSG Results (Last 24 hours): 08/10/19 08/10/19 08/10/19 21:32 22:34 22:35 Glucose 45 L* POC Glucose 51 L* 428 H* 08/10/19 08/10/19 08/10/19 22:36 22:48 23:21 Glucose POC Glucose 266 H 173 H 109 H 08/11/19 08/11/19 08/11/19 00:33 03:40 08:13 Glucose POC Glucose 107 H 134 H 101 H OUTPATIENT ANTIDIABETIC REGIMEN: * A1c = 6.4% * Lantus 45 units SQ qAM * Novolog SS ASSESSMENT: * Sathya is a 69 yo T2DM male admitted with SOB and anemia * He was hypoglycemic upon arrival to ED - BSG of 45 mg/dL. Will hold Lantus until evidence of BSG recovery. During recent admission, pt was well controlled on 11 units BID. * Patient ordered clear liquid diet. Plan for upper endoscopy and colonoscopy on Monday. PLAN FOR INPATIENT GLYCEMIC CONTROL: * Hold outpatient oral diabetes medications * Basal insulin * Lantus per scale SQ BID: * HOLD for BSG < 140 * 10 units for BSG 140-180 * 15 units for BSG > 180 * Bolus insulin * NovoLog per scale ACHS or Q6hrs while NPO * Goal Range: Low 120 mg/dL - High 160 mg/dL * Correction Factor: 25 mg/dL/unit * Nutritional / Prandial insulin per carb ratio of 1 unit per 8 grams CHO consumed PLAN FOR DISCHARGE: * A1c of 6.4% indicates excellent glycemic control * Patient was hypoglycemic on admission (BSG = 45 mg/dL). Home regimen may require reduction. Additional data needed prior to making definite dosing recommendations.
[2019-08-11 12:20] LABS: Hematocrit (blood only) 27.4 % (42-52); Hemoglobin 8.3 g/dL (14.0-18.0)
[2019-08-11] MEDS: INSULIN GLARGINE SOLOSTAR 100 UNITS/ML 3 ML PEN SC SCH ×2 (12:52→20:30)
--- NOTE | 2019-08-11 13:01 | Cardiology Consultation ---
Date of Consultation Patient was admitted with 2 episodes of feeling like his tongue was swollen. He also complained of vertigo and a sensation of scotomas. He had vertigo at the same time. And he had difficulty speaking. Each episode lasted 30 to 60 seconds one occurred yesterday and the other occurred the day before. His blood sugar was low on admission. His describes that his tongue was not swollen even though he felt like it was swollen. His anticoagulation has been stopped due to an unknown reason for GI bleeding during his last admission last week. He was unaware of any palpitations or fluttering or feeling his heart racing. He did feel very weak with the episode though. He is unaware that his defibrillator went off. He notes after the acute episode resolved within the 60 seconds he then tried to walk and felt very weak and very tired and short of breath. He had no angina. Today he feels back to himself. He is never had anything like this before. He checks his blood sugars at home and they have been very good in the 120s or so. His weight has been stable if anything he has lost weight. The rest of a complete her systems otherwise negative August 11, 2019 History of Present Illness Attending Physician: Arjun Horvath MD Allergies Allergy/AdvReac Type Severity Reaction Status Date / Time Penicillins Allergy Mild childhood Verified 08/10/19 23:04 reaction codeine AdvReac Mild NAUSEA, Verified 08/10/19 23:04 LIGHTHEADEDNESS simvastatin AdvReac Mild makes him Verified 08/10/19 23:04 feel like he is high Home Medications Home Medications Medication Instructions Recorded Confirmed Type aspirin 81 mg PO QAM 01/25/18 08/10/19 History atorvastatin 40 mg PO QPM 01/25/18 08/10/19 History allopurinol 100 mg PO QAM 09/11/18 08/10/19 History allopurinol 300 mg PO QAM 09/26/18 08/10/19 History insulin glargine 100 unit/mL (3 45 units SUBCUT QAM ml 12/17/18 08/10/19 Histo ry mL) subcutaneous pen metoprolol succinate 100 mg PO BID 01/21/19 08/10/19 History nitroglycerin 0.4 mg SUBLINGUAL UD PRN 01/21/19 08/10/19 History venlafaxine 150 mg PO BID 01/21/19 08/10/19 History insulin aspart U-100 100 unit/mL 0 units SQ ACHS ml 01/30/19 08/10/19 History (3 mL) subcutaneous pen meclizine 12.5 mg tablet 12.5 mg PO TID PRN 01/30/19 08/10/19 History sacubitril 97 mg-valsartan 103 mg 1 tab PO BID 90 Days #180 tab 01/30/19 08/10/19 Rx tablet bumetanide 4 mg PO QAM 02/27/19 08/10/19 History potassium chloride 10 meq PO BID 02/27/19 08/10/19 History digoxin 125 mcg (0.125 mg) tablet 125 mcg PO Q2D #45 tab 03/19/19 08/11/19 Rx amiodarone 200 mg tablet 200 mg PO BID #180 tab 05/16/19 08/10/19 Rx lorazepam 0.5 mg tablet 0.5 mg PO DAILY PRN #30 tab 07/25/19 08/10/19 Rx bumetanide 2 mg PO .DAILY@LUNCH PRN 08/05/19 08/10/19 History cholecalciferol (vitamin D3) 125 mcg PO 2XWK 08/05/19 08/10/19 History tramadol 50 mg PO Q6H PRN 08/05/19 08/10/19 History pantoprazole [Protonix] 40 mg PO BID #60 tab 08/07/19 08/10/19 Rx Patient History Medical History Anxiety (Inactive) Atrial fibrillation, chronic (Chronic) CAD (coronary artery disease) (Chronic) stenting to LAD in 1994 and 1996 stenting to RCA and LAD in 2007 CKD (chronic kidney disease) (Acute) Congestive heart failure (Resolved) Depression with anxiety (Chronic) Diabetes mellitus type II, controlled (Chronic) Diabetic neuropathy (Chronic) Dyslipidemia (Chronic) Gout HTN (hypertension) (Chronic) Ischemic dilated cardiomyopathy (Inactive) senior care current use of anticoagulant (Chronic) warfarin daily Myocardial Infarction (Resolved) 1989. CARDIAC CATH WITH 2 STENTS ANTOINETTE on CPAP (Chronic) Systolic and diastolic CHF, chronic (Chronic) Surgical History AICD (automatic cardioverter/defibrillator) present (Chronic) placed on 8/7/18 [employer] DEVICE. LAST CHECKED [address] DOMINGUEZ[facility]. PLACED IN OCTOBER 2017 AT [facility] History of bowel resection (Resolved) MASSIVE POLPYS History of cardiac cath (Inactive) 1989 --> X2 STENTS. BARE METAL STENTS ~1992 --> X2 STENTS. DRUG ELUTING STENTS. History of cataract surgery (Resolved) BILATERAL History of colonoscopy (Inactive) History of heart artery stent (Resolved) History of partial colectomy (Resolved) "[facility]/ ilieorectal anast/ multiple polyps 2008" Stented coronary artery (Inactive) "stents x 4 to RCA and LAD 1997" Family History Mother Coronary heart disease Diabetes Father Lung cancer Sister Diabetes Social History Preferred Language: Sudanese Communication Ability: Effective [employer] Required: No Beliefs That Will Affect Care: None marital status: Current Living Situation: Spouse Other Information That Helps Us Care for You: No Feels Safe at Home: Yes Safety Concerns: Feels Safe At This Time Smoking Status: Never smoker Second Hand Exposure: No ; Hx Alcohol Use: No Hx Substance Use: No Results & Data ([facility]) Vital Signs (Past 12 Hours) Vital Signs Temp Pulse Pulse Resp BP BP Pulse Ox 08/11/19 08:00 61 08/11/19 07:47 36.5 C 65 18 130/72 94 08/11/19 06:45 36.6 C 64 18 137/72 95 08/11/19 05:40 36.5 C 64 18 124/74 95 08/11/19 05:15 36.5 C 64 18 124/74 95 08/11/19 04:40 36.4 C L 64 18 143/82 H 96 08/11/19 04:10 60 22 147/94 H 93 08/11/19 03:55 36.6 C 62 20 148/73 H 95 08/11/19 03:30 36.5 C 88 20 130/72 98 08/11/19 02:23 36.5 C 68 20 100/50 L 95 08/11/19 02:12 63 08/11/19 01:31 78 22 147/62 H 100 08/11/19 01:15 59 L 19 141/65 H 100 08/11/19 01:00 56 L 19 149/69 H 100 He is awake alert and oriented x3 in no acute distress he is answering questions appropriately and moving all extremities HEENT: Moderately reduced carotid upstrokes no evidence of carotid bruits Lungs: Clear to auscultation bilaterally no rales rhonchi or wheezing Heart: IrRegular rate and rhythm, no appreciable murmurs Abdomen: Soft nontender distended positive bowel sounds Extremities: Mild bilateral lower extremity edema Psychiatric his affect appear appropriate 1. Odd sensation of feeling his tongue swell even though it was not, difficulty with speech, scotomas, and weakness along with vertigo ----question TIA due to A. fib while off anticoagulation; question secondary to recurrent ICD therapy; question related to a complex migraine; or weird reaction to amiodarone We will interrogate his ICD to see if he is had any therapy. Neurology should be consulted for their evaluation and consider imaging If there is a concern on his imaging for a cardioembolic event we will need to revisit anticoagulation versus watchman device (2) CAD (coronary artery disease): He has known CAD with prior intracoronary stenting. H Continue aspirin and statin therapy. Continue beta leticia. (3) Systolic and diastolic CHF, chronic: He appears euvolemic and well compensated currently. Continue outpatient dosing of Bumex. Low sodium diet, <2,000 mg daily. Daily weights. Monitor I's&O's. (4) Ischemic cardiomyopathy: Continue metoprolol succinate and Entresto. (5) AICD (automatic cardioverter/defibrillator) present: History of multiple ICD therapies currently on amiodarone (6) Atrial fibrillation, chronic: His rate is adequately controlled, and he is asymptomatic. Currently off anticoagulation due to his recent profound anemia 7. Significant anemia of unclear etiology during his last admission
[2019-08-11 13:09] LABS: BUN Creatinine Ratio 24.6 (10-20); Creatinine Clr Calc Pharmacy 52.8 ml/min; Est GFR (African American) 50.6; Est GFR (Non-African American) 43.6; Potassium 4.4 mmol/L (3.5-5.1)
--- NOTE | 2019-08-11 16:58 | CT Scan Report ---
CT OF THE HEAD WITHOUT CONTRAST CLINICAL HISTORY: R/O CVA COMPARISON STUDY: Head CT July 20, 2017. CT DOSE: 729.78 mGycm TECHNIQUE: Helical axial images of the head were obtained without IV contrast. Automated exposure con trol was utilized for the study. A dose lowering technique was utilized adhering to the principles o f ALARA. FINDINGS: No acute intracranial hemorrhage, midline shift or mass effect is present. The ventricular system is unremarkable. The basilar cisterns are patent. Extensive white matter hypodensities are sim ilar to prior exam and suggest small vessel disease. No extra-axial collections are present. There ar e no findings to suggest acute dural sinus thrombosis or acute territorial infarct. No significant ca lvarial abnormalities are present. Visualized portions of the sinuses and mastoid air cells are clear . IMPRESSION: No acute intracranial findings. No significant change in appearance of the brain. ACT 112: Negative or not required by law. Electronically signed by: Jefferson Hyatt M.D. 08/11/2019 4:57 PM
[2019-08-11] MEDS: DIGOXIN 0.125 MG TAB PO SCH (16:59)
--- NOTE | 2019-08-11 17:14 | Hospitalist Progress Note ---
Date of Service August 11, 2019 Assessment & Plan (1) SOB (shortness of breath): Symptomatic anemia Positive fecal occult Hemoglobin dropped from prior admission despite being off Coumadin S/P 1 unit PRBCs BUN mildly elevated, total bilirubin within normal limits Aspirin held Monitor H&H and transfuse PRBCs as needed Plan for EGD, colonoscopy on Monday Appreciate GI input Avoid any anticoagulants Stroke like Symptoms/Vertigo In setting of Hypoglycemia ? TIA while off anticoagulation DD: Hypoglycemia, ICD problems, complex migraine CT head Pending Neurology Consulted for Input Aspirin, Coumadin currently on hold due to GI bleed Continue statin Abnormal UA To R/O UTI Empirically on cefepime Urine culture pending Mild acute systolic CHF exacerbation CXR:Interval development of mild congestive change. Cardiomegaly and small bilateral pleural effusions persist. H/O ischemic cardiomyopathy S/P AICD ICD Interrogation requested EF:35% in 2019 Received IV Lasix in ED Also on Entresto Resume PO diuretics as able Appreciate Cardiology Input Saturating well on room air CKD III Baseline Cr:1.4-1.7 Monitor renal function CAD Aspirin on hold Continue Lipitor, metoprolol, Entresto H/O atrial fibrillation Rate controlled Currently off anticoagulation due to GI bleed issues Continue amiodarone, metoprolol, digoxin Hyperlipidemia on statin DM II Hypoglycemic prior to admission Hb A1C:6.22 Jul 2019 Continue insulin therapy Glycemic pharmacy consult. Hypokalemia Likely due to medications Replete electrolytes as needed ANTOINETTE on CPAP INR in therapeutic range Despite off Coumadin Patient denies taking coumadin since last discharge S/P Vit K INR:2.1>>1.7 Monitor INR DVT Px: SCD RE occult GI/symptomatic anemia Code Status Full code Disposition Expect to discharge home when medically stable Admission and Anticipated Discharge Date Admission Date: August 11, 2019 Subjective Patient is seen and examined at bedside States feeling better Denies any chest pain, shortness of breath, dizziness, nausea, abdominal pain No acute bleeding issues CT head pending Plan for ICD interrogation EGD, colonoscopy planned on Monday Monitor H&H Review of Systems Review of Systems: All systems reviewed & are unremarkable except as noted in HPI & below Physical Exam Physical Exam: Physical Exam: Vitals signs as noted above General Appearance:Obese, no apparent distress Head: normocephalic, Atraumatic Eyes: normal inspection, EOMI Neck: supple, Trachea midline Respiratory/Chest: Normal breath sounds, CTA Cardiovascular: S1, S2, No murmur Abdomen/GI:Soft, Non tender, Bowel sounds present Extremities/Musculoskelatal:normal inspection, +Edema, Chronic B/L venous stasis changes Neurologic/Psych:AAOX3, grossly no focal neurological deficits Skin: normal color, warm Results & Data Results & Data ([facility]) Vital Signs (Past 12 Hours) Vital Signs Temp Pulse Pulse Resp BP BP Pulse Ox 08/11/19 16:00 61 08/11/19 15:22 36.7 C 69 23 111/67 94 08/11/19 12:57 37.0 C 67 18 109/58 L 99 08/11/19 08:00 61 08/11/19 07:47 36.5 C 65 18 130/72 94 08/11/19 06:45 36.6 C 64 18 137/72 95 08/11/19 05:40 36.5 C 64 18 124/74 95 08/11/19 05:15 36.5 C 64 18 124/74 95 Laboratory Results Short CBC 08/10/19 08/10/19 08/11/19 Range/Units 21:32 21:32 07:46 WBC 7.00 6.08 (4.8-10.8) K/uL Hgb 7.5 L 8.3 L (14.0-18.0) g/dL Hct 23.9 L 26.6 L (42-52) % Plt Count 220 201 (130-400) K/uL Creatinine 1.83 H (0.6-1.4) mg/dl 08/11/19 08/11/19 Range/Units 12:10 12:10 WBC (4.8-10.8) K/uL Hgb 8.3 L (14.0-18.0) g/dL Hct 27.4 L (42-52) % Plt Count (130-400) K/uL Creatinine 1.59 H (0.6-1.4) mg/dl BMP 08/10/19 08/11/19 21:32 12:10 Sodium 139 140 Potassium 3.1 L 4.4 D Chloride 104 106 Carbon Dioxide 27 29 BUN 49 H 39 H Creatinine 1.83 H 1.59 H Glucose 45 L* 123 H Calcium 8.0 L 8.0 L Cardiac Enzymes 08/10/19 08/10/19 Range/Units 21:32 23:37 Troponin I 0.020 0.020 (0-0.045) ng/ml Liver Function 08/10/19 Range/Units 21:32 Total Bilirubin 0.7 (0.2-1) mg/dl AST 25 (15-37) U/L ALT 28 (12-78) U/L Alkaline Phosphatase 106 (45-117) U/L Albumin 3.1 L (3.4-5.0) gm/dl Urine 08/11/19 Range/Units 03:45 Urine Color Yellow Urine Appearance Cloudy A (Clear) Urine pH 6.0 (4.5-7.5) Ur Specific [place] 1.011 (1.000-1.030) Urine Protein Negative (Negative) Urine Glucose (UA) Negative (Negative)
[2019-08-11 18:00] LABS: Hematocrit (blood only) 25.7 % (42-52); Hemoglobin 8.1 g/dL (14.0-18.0)
[2019-08-11] MEDS: ATORVASTATIN 40 MG TAB PO SCH (20:06)
[2019-08-12 06:02] LABS: Hematocrit (blood only) 27.1 % (42-52); Hemoglobin 8.3 g/dL (14.0-18.0)
[2019-08-12 06:04] LABS: INR 1.3 (0.9-1.1); Prothrombin Time 13.6 Seconds (9.0-12.0)
[2019-08-12 06:25] LABS: BUN Creatinine Ratio 20.3 (10-20); Calcium 8.1 mg/dl (8.5-10.1); Creatinine Clr Calc Pharmacy 55.7 ml/min; Est GFR (African American) 53.8; Est GFR (Non-African American) 46.5; Magnesium 2.2 mg/dl (1.8-2.4); Potassium 4.2 mmol/L (3.5-5.1)
[2019-08-12] MEDS: CEFEPIME 2,000 MG in SYRINGE 7.5 ML IV SCH (07:31)
[2019-08-12] MEDS: INSULIN GLARGINE SOLOSTAR 100 UNITS/ML 3 ML PEN SC SCH ×2 (07:35→21:25)
[2019-08-12] MEDS: METOPROLOL SUCC 25MG EXT REL TAB PO SCH ×2 (08:12→20:41)
[2019-08-12] MEDS: PANTOprazole 40 MG TAB PO SCH ×2 (08:12→20:43)
[2019-08-12] MEDS: allopurinoL 100 MG TAB PO SCH (08:13)
[2019-08-12] MEDS: VENLAFAXINE HCL XR 150 MG CAPXR PO SCH ×2 (08:13→20:41)
[2019-08-12] MEDS: AMIODARONE 200 MG TAB PO SCH ×2 (08:13→20:42)
[2019-08-12] MEDS: allopurinoL 300 MG TAB PO SCH (08:13)
[2019-08-12] MEDS: INSULIN ASPART 100 UNITS/ML 3 ML PEN SC SCH ×4 (08:18→21:25)
--- NOTE | 2019-08-12 09:07 | Gastroenterology Progress Note ---
Date of Service August 12, 2019 Assessment & Plan (1) Anemia: Patient with persistent anemia to undergo upper endoscopy and colonoscopy tomorrow. The patient did have a positive urinalysis for blood and I would suggest a urology evaluation in his particular case Recommendation EGD and colonoscopy pending tomorrow, preparation was written Suggest a urology consultation given the hematuria Admission and Anticipated Discharge Date Admission Date: August 11, 2019 Subjective The patient notes that he is doing fairly well today. We are planning to do his endoscopic evaluation tomorrow given his repeated admissions for anemia. Review of Systems Constitutional: no sweats Respiratory: no cough and no change in sputum Cardiovascular: no chest pain with activity Physical Exam Constitutional: no acute distress Neck: trachea midline Respiratory: no labored breathing Auscultation: + crackles Cardiovascular: Heart Sounds: + murmur Gastrointestinal (Abdomen): Percussion/Palpation: abdomen soft; abdomen nontender and no guarding Results & Data ([facility]) Vital Signs (Past 12 Hours) Vital Signs Temp Pulse Resp BP Pulse Ox 08/12/19 07:42 36.8 C 67 18 122/73 96 08/12/19 02:51 37 C 65 16 113/63 94 08/11/19 23:12 36.7 C 72 20 116/61 94 Laboratory Results Laboratory Results - last 24 hr 08/11/19 08/11/19 08/11/19 07:46 11:13 12:10 Hgb 8.3 L Hct 27.4 L Anisocytosis Present PT INR Sodium Potassium Chloride Carbon Dioxide Anion Gap BUN Creatinine Est Cr Clr Drug Dosing Est GFR ( Amer) Est GFR (Non-Af Amer) BUN/Creatinine Ratio Glucose POC Glucose 151 H Calcium Magnesium 08/11/19 08/11/19 08/11/19 12:10 16:07 17:50 Hgb 8.1 L Hct 25.7 L Anisocytosis PT INR Sodium 140 Potassium 4.4 D Chloride 106 Carbon Dioxide 29 Anion Gap 5.0 BUN 39 H Creatinine 1.59 H Est Cr Clr Drug Dosing 52.8 Est GFR ( Amer) 50.6 Est GFR (Non-Af Amer) 43.6 BUN/Creatinine Ratio 24.6 H Glucose 123 H POC Glucose 125 H Calcium 8.0 L Magnesium 08/11/19 08/12/19 08/12/19 20:13 05:41 05:41 Hgb 8.3 L Hct 27.1 L Anisocytosis PT 13.6 H INR 1.3 H Sodium Potassium Chloride Carbon Dioxide Anion Gap BUN Creatinine Est Cr Clr Drug Dosing Est GFR ( Amer) Est GFR (Non-Af Amer) BUN/Creatinine Ratio Glucose POC Glucose 139 H Calcium Magnesium 08/12/19 08/12/19 05:41 07:34 Hgb Hct Anisocytosis PT INR Sodium 139 Potassium 4.2 Chloride 107 Carbon Dioxide 28 Anion Gap 4.0 BUN 31 H Creatinine 1.51 H Est Cr Clr Drug Dosing 55.7 Est GFR ( Amer) 53.8 Est GFR (Non-Af Amer) 46.5 BUN/Creatinine Ratio 20.3 H Glucose 103 H POC Glucose 123 H Calcium 8.1 L Magnesium 2.2
--- NOTE | 2019-08-12 10:34 | Communication Note ---
Date of Service: August 12, 2019 I have been asked to see Mr. Smith today in neurologic consultation by his primary care service and by cardiology. He is a man with ischemic cardiomyopat hy, chronic atrial fibrillation, cardiac pacemaker/defibrillator in place, chronic congestive heart failure, diabetes with diabetic polyneuropathy, recent hospitalization for anemia and a supratherapeutic INR with outpatient discontinuation of chronic Coumadin therapy in preparation for endoscopy which is actually going to be done now as an inpatient tomorrow He presented with 2 episodes by 24 hours both of brief duration but characterized by fairly stereotypic onset of a sensation of thickness in his tongue, dysarthria, circumoral numbness of the face, sudden brightening of both visual huerta with loss of vision, dystaxia and of most 60 seconds to 2 minutes in duration and then clearing completely and leaving no neurologic deficits and nothing on a noncontrast CT scan to indicate an ischemic infarction His echocardiogram shows hypokinetic segments and a low ejection fraction He also is in chronic atrial fibrillation There was some question of whether mild hypoglycemia could have done this but events were very short not preceded by any diaphoresis or other warning symptoms Unfortunately he does have renal disease which precludes performance of contrast studies of his extracranial and intracranial vessels and he cannot have an MRI due to the presence of the pacemaker/defibrillator The question now is whether these were TIAs versus atypical migraines versus hypoglycemia versus a reaction to amiodarone His exam today is completely normal with the exception of evidence for diabetic polyneuropathy manifested by absent reflexes and dense sensory loss to large and small fiber modalities up to the knees sparing the hands. He is alert cooperative oriented in 3 spheres with normal eye movements normal visual huerta normal facial motility and strength normal facial sensation clear speech and has no cerebellar dysmetria on finger-nose or [id number] testing with the upper extremities and no tremor there are no pathologic reflexes strength testing in the upper and lower extremities is normal Vital signs reveal blood pressure 122/73 pulse 70 respiration of 18 no bruits were heard in the neck pulse is slightly irregular I think the clinical history is consistent with vertebrobasilar TIAs fortunately of brief duration and in this setting very likely due to recurrent emboli but intrinsic small vessel disease could certainly not be excluded. This is s omething we are not going to be able to demonstrate due to limitations imposed by his renal failure with limitations on CTA and by the presence of his pacemaker/defibrillator and frankly the treatment for intracranial disease would simply be antiplatelet drugs which he currently is taking The major concern is of course the lack of protection from cardiogenic emboli and cardiology has mentioned the possibility of a watchman device. Frankly this might be the wisest choice given his anemia, potential GI source of blood loss and the fact that Coumadin or a novel anticoagulant may be chronically c ontraindicated The only diagnostic studies I am suggesting would be a carotid duplex just to be certain that there is no significant flow reduction in the anterior circulation or evidence for vertebral arteries occlusion or stenosis. While his symptoms are strongly suggestive of posterior circulation TIAs a high-grade carotid artery stenosis if present may be something that would warrant surgical intervention down the road In terms of anticoagulation I am going to defer completely to cardiology and gastroenterology I will be happy to evaluate the patient again should the situation change and certainly will be available by telephone call or text message for advice but I do not think that I need to have a [id number] encounter with the patient on the one we had today Colin Cruz MD
--- NOTE | 2019-08-12 11:54 | Ultrasound Report ---
US carotid doppler BI CLINICAL HISTORY: 69 years-old Male presenting with possible vertebrobasilar transient ischemic attac ks. TECHNIQUE: Real-time grayscale and color and spectral Doppler ultrasound imaging of the bilateral car otid arteries was performed. Stenosis measurements were based on NASCET-like criteria (distal lumen d iameter as the denominator for stenosis measurement). COMPARISON: None. FINDINGS: RIGHT: Common carotid artery (CCA): Atherosclerosis at the carotid bulb. Peak systolic velocity (PSV) 71 cm/ s. Internal carotid artery (ICA): Atherosclerosis of the proximal ICA. PSV 109 cm/s. End diastolic veloc ity (EDV) 18 cm/s. ICA/CCA (systolic) ratio: 1.5. External carotid artery (ECA): Patent. PSV 125 cm/s. LEFT: CCA: Atherosclerosis at the carotid bulb. PSV 81 cm/s. ICA: Atherosclerosis of the proximal ICA. PSV 217 cm/s. EDV 38 cm/s. ICA/CCA (systolic) ratio: 2.7. ECA: Patent. PSV 110 cm/s. Bilateral antegrade flow within the vertebral arteries. Blood pressure: Brachial: Right: 137/72 mmHg, Left: 130/72 mmHg. Reference ranges: Stenosis measurements are compared to reference velocity parameters by the Society of Radiologists in Ultrasound (SRU) consensus and Sonographic NASCET index (S-NASCET). * SRU Primary parameters: ICA PSV <125 cm/s = normal or less than 50% stenosis; ICA PSV 125-230 cm/s = 50-69% stenosis; ICA PSV >230 cm/s = greater than or equal to 70% stenosis. * SRU Additional parameters: ICA/CCA PSV ratio <2 = normal or less than 50% stenosis; ratio 2-4 = 5 0-69% stenosis; ratio >4 = greater than or equal to 70% stenosis. ICA EDV <40 cm/s = normal or less t benson 50% stenosis; ICA EDV 40-100 cm/s = 50-69% stenosis; ICA EDV >100 cm/s = greater than or equal to 70% stenosis. * S-NASCET parameters: Deceleration spectral broadening + PSV <125 cm/s = less than 50% stenosis; pa nsystolic spectral broadening + PSV <125 cm/s = 16-49% stenosis; pansystolic spectral broadening + PS V >125 cm/s + EDV <110 cm/s or ICA/CCA PSV ratio 2-4 = 50-69% stenosis; pansystolic spectral broadeni ng + PSV >270 cm/s OR EDV >110 cm/s OR ICA/CCA PSV ratio >4 = 70-79% stenosis; EDV >140 cm/s = 80-99% stenosis. IMPRESSION: 1. 50-69% stenosis of the origin/proximal left internal carotid artery. ACT 112: Negative or not required by law. Electronically signed by: Kunal Davenport M.D. 08/12/2019 11:52 AM
--- NOTE | 2019-08-12 11:56 | Cardiology Progress Note ---
Date of Service August 12, 2019 Subjective He denies any chest pain chest pressure chest heaviness. He denies any palpitations. He has had no further TIA like symptoms. His legs are slightly more swollen but he has been sitting most of the day. He denies any dark stools or black stools. He denies any hematuria. Denies any weakness 1 side to the other. Results & Data Vital Signs (Past 12 Hours) Vital Signs Temp Pulse Resp BP Pulse Ox 08/12/19 07:42 36.8 C 67 18 122/73 96 08/12/19 02:51 37 C 65 16 113/63 94 He is awake alert and oriented x3 in no acute distress he is answering questions appropriately and moving all extremities HEENT: Moderately reduced carotid upstrokes no evidence of carotid bruits Lungs: Clear to auscultation bilaterally no rales rhonchi or wheezing Heart: IrRegular rate and rhythm, no appreciable murmurs Abdomen: Soft nontender distended positive bowel sounds Extremities: Mild bilateral lower extremity edema Psychiatric his affect appear appropriate 1. Vertebrobasilar TIAs consistent with an odd sensation of feeling his tongue swell even though it was not, difficulty with speech, scotomas, and weakness along with vertigo ---- Appreciate neurology's input as to the events being consistent with a TIA. He needs to be on antiplatelet therapy to reduce his risk of recurrent events. In all likelihood his aspirin was not therapeutic as it was probably discontinued in his prior admission and then he was home for 3 days on aspirin. If we think he failed aspirin then Plavix would be recommended. Given the significant risk of recurrent TIAs we will need to accept the fact that there is a bleeding risk associated with antiplatelet therapy. I would discuss the use of antiplatelets with the neurology service. I would start antiplatelets prior to his GI work- up. With regards to anticoagulation I would hold off at this point until his GI work-up is completed if he has a negative work-up then the question remains should he have a capsule endoscopy. Ultimately if a source cannot be found then I would consider a watchman device to reduce his risk of cardioembolic events from his atrial fibrillation. Dr. Vargas will return tomorrow. I would allow him to ambulate in the hallway. He will be prepping for colonoscopy for tomorrow. I would avoid diuretics at this point given the potential loss of fluids with medically induced diarrhea (2) CAD (coronary artery disease): He has known CAD with prior intracoronary stenting. H Continue aspirin and statin therapy. Continue beta leticia. (3) Systolic and diastolic CHF, chronic: He appears euvolemic and well compensated currently. Continue outpatient dosing of Bumex. Low sodium diet, <2,000 mg daily. Daily weights. Monitor I's&O's. (4) Ischemic cardiomyopathy: Continue metoprolol succinate and Entresto. (5) AICD (automatic cardioverter/defibrillator) present: History of multiple ICD therapies currently on amiodarone (6) Atrial fibrillation, chronic: His rate is adequately controlled, and he is asymptomatic. Currently off anticoagulation due to his recent profound anemia 7. Significant anemia of unclear etiology during his last admission
--- NOTE | 2019-08-12 14:40 | Pharmacy Report ---
Pharmacy Glycemic Short Note 2 - Date of Service August 12, 2019 - Glycemic Short BSG Results (Last 24 hours): OUTPATIENT ANTIDIABETIC REGIMEN: * A1c = 6.4% * Lantus 45 units SQ qAM * Novolog SS ASSESSMENT: * Sathya is a 69 yo T2DM male admitted with SOB and anemia * Excellent glycemic control over the past 24 hours. No further hypoglycemia. * Patient ordered clear liquid diet. Plan for upper endoscopy and colonoscopy on Monday. PLAN FOR INPATIENT GLYCEMIC CONTROL: * Hold outpatient oral diabetes medications * Basal insulin * Lantus per scale SQ BID: * HOLD for BSG < 140 * 10 units for BSG 140-180 * 15 units for BSG > 180 * Bolus insulin * NovoLog per scale ACHS or Q6hrs while NPO * Goal Range: Low 120 mg/dL - High 160 mg/dL * Correction Factor: 25 mg/dL/unit * Nutritional / Prandial insulin per carb ratio of 1 unit per 8 grams CHO consumed PLAN FOR DISCHARGE: * A1c of 6.4% indicates excellent glycemic control * Patient was hypoglycemic on admission (BSG = 45 mg/dL). Home regimen may require reduction. Additional data needed prior to making definite dosing recommendations.
--- NOTE | 2019-08-12 16:03 | Hospitalist Progress Note ---
Date of Service August 12, 2019 Assessment & Plan (1) SOB (shortness of breath): Symptomatic anemia Positive fecal occult Hemoglobin dropped from prior admission despite being off Coumadin S/P 1 unit PRBCs BUN mildly elevated, total bilirubin within normal limits Aspirin held Monitor H&H and transfuse PRBCs as needed Appreciate GI input Avoid any anticoagulants Plan for EGD, colonoscopy tomorrow Hb:8.3 today Stroke like Symptoms/Vertigo ? Vertebrobasilar TIA In setting of Hypoglycemia ? TIA while off anticoagulation DD: Hypoglycemia, ICD problems, complex migraine CT head:No acute intracranial findings. No significant change in appearance of the brain. Carotid Doppler: 50-69% stenosis of the origin/proximal left internal carotid artery. Neurology Consulted Aspirin, Coumadin currently on hold due to GI bleed Continue statin Pacemaker Interrogation requested Resume antiplatelet drugs as able Vs consideration for possible watchman device Cardiology/Neurology following Abnormal UA UTI ruled out Abx discontinued Urine culture: Probable Skin mady Mild acute systolic CHF exacerbation CXR:Interval development of mild congestive change. Cardiomegaly and small bilateral pleural effusions persist. H/O ischemic cardiomyopathy S/P AICD ICD Interrogation requested EF:35% in 2019 Received IV Lasix in ED Also on Entresto Resume PO diuretics as able Appreciate Cardiology Input Saturating well on room air CKD III Baseline Cr:1.4-1.7 Monitor renal function CAD Aspirin on hold Continue Lipitor, metoprolol, Entresto H/O atrial fibrillation Rate controlled Currently off anticoagulation due to GI bleed issues Continue amiodarone, metoprolol, digoxin Resume anticoagulation as soon as possible Hyperlipidemia on statin DM II Hypoglycemic prior to admission Hb A1C:6.22 Jul 2019 Continue insulin therapy Glycemic pharmacy consult. Hypokalemia Likely due to medications Replete electrolytes as needed ANTOINETTE on CPAP INR in therapeutic range Despite off Coumadin Patient denies taking coumadin since last discharge S/P Vit K INR:2.1>>1.7 Monitor INR DVT Px: SCD RE occult GI/symptomatic anemia Code Status Full code Disposition Expect to discharge home when medically stable Admission and Anticipated Discharge Date Admission Date: August 11, 2019 Subjective Patient is seen and examined at bedside No new complaints today Denies any bleeding issues Planned for EGD/Colonoscopy tomorrow Denies any chest pain, SOB, dizziness, nausea, abdominal pain Hb stable Review of Systems Review of Systems: All systems reviewed & are unremarkable except as noted in HPI & below Physical Exam Physical Exam: Physical Exam: Vitals signs as noted above General Appearance:Obese, no apparent distress Head: normocephalic, Atraumatic Eyes: normal inspection, EOMI Neck: supple, Trachea midline Respiratory/Chest: Normal breath sounds, CTA Cardiovascular: S1, S2, No murmur Abdomen/GI:Soft, Non tender, Bowel sounds present Extremities/Musculoskelatal:normal inspection, +Edema, Chronic B/L venous stasis changes Neurologic/Psych:AAOX3, grossly no focal neurological deficits Skin: normal color, warm Results & Data Results & Data ([facility]) Vital Signs (Past 12 Hours) Vital Signs Temp Pulse Resp BP Pulse Ox 08/12/19 15:07 36.7 C 65 18 118/72 96 08/12/19 12:05 36.3 C L 72 17 151/91 H 98 08/12/19 07:42 36.8 C 67 18 122/73 96
[2019-08-12] MEDS ORDERED: LAVAGE SOLUTION 4000ML PO SCH (18:00)
[2019-08-12] MEDS: ATORVASTATIN 40 MG TAB PO SCH (20:41)
[2019-08-13 06:06] LABS: Hematocrit (blood only) 27.8 % (42-52); Hemoglobin 8.7 g/dL (14.0-18.0)
[2019-08-13 06:17] LABS: INR 1.2 (0.9-1.1); Prothrombin Time 12.8 Seconds (9.0-12.0)
[2019-08-13 06:42] LABS: BUN Creatinine Ratio 17.2 (10-20); Calcium 8.5 mg/dl (8.5-10.1); Creatinine Clr Calc Pharmacy 63.1 ml/min; Est GFR (African American) 62.2; Est GFR (Non-African American) 53.7; Potassium 4.9 mmol/L (3.5-5.1)
[2019-08-13] MEDS: INSULIN ASPART 100 UNITS/ML 3 ML PEN SC SCH ×4 (08:08→21:26)
[2019-08-13] MEDS: INSULIN GLARGINE SOLOSTAR 100 UNITS/ML 3 ML PEN SC SCH ×2 (08:08→21:26)
[2019-08-13] MEDS: VENLAFAXINE HCL XR 150 MG CAPXR PO SCH ×2 (08:09→19:58)
[2019-08-13] MEDS: PANTOprazole 40 MG TAB PO SCH ×2 (08:09→19:58)
[2019-08-13] MEDS: METOPROLOL SUCC 25MG EXT REL TAB PO SCH ×2 (08:09→19:57)
[2019-08-13] MEDS: allopurinoL 100 MG TAB PO SCH (08:09)
[2019-08-13] MEDS: AMIODARONE 200 MG TAB PO SCH ×2 (08:09→19:57)
[2019-08-13] MEDS: allopurinoL 300 MG TAB PO SCH (08:09)
--- NOTE | 2019-08-13 08:26 | Anesthesiology Consultation ---
Date of Service August 13, 2019 Assessment & Plan (1) Encounter for pre-operative examination: Chart Review Chart Review: Acceptable Risk for Surgery and Patient NOT seen in Pre Admission Testing Consults Requested none ASA ASA4 Proposed Anesthesia Anesthesia Type: MAC Risk / Benefits Reviewed With: PT / POA / Parent / Guardian, Accepts Plan and Informed Consent Obtained History Surgery Operation Date: 08/13/19 15:30 Proposed Procedures p Colonoscopy EGD Dr Mian Pappas Height/Weight Height: 5 ft 7 in Weight: 115.1 kg Allergies Allergy/AdvReac Type Severity Reaction Status Date / Time Penicillins Allergy Mild childhood Verified 08/10/19 23:04 reaction codeine AdvReac Mild NAUSEA, Verified 08/10/19 23:04 LIGHTHEADEDNESS simvastatin AdvReac Mild makes him Verified 08/10/19 23:04 feel like he is high Medications Home Medications Medication Instructions Recorded Confirmed Last Taken aspirin 81 mg PO QAM 01/25/18 08/10/19 08/10/19 atorvastatin 40 mg PO QPM 01/25/18 08/10/19 08/10/19 allopurinol 100 mg PO QAM 09/11/18 08/10/19 08/10/19 allopurinol 300 mg PO QAM 09/26/18 08/10/19 08/10/19 insulin glargine 100 unit/mL (3 45 units SUBCUT QAM ml 12/17/18 08/10/19 08/10/19 mL) subcutaneous pen metoprolol succinate 100 mg PO BID 01/21/19 08/10/19 08/10/19 nitroglycerin 0.4 mg SUBLINGUAL UD PRN 01/21/19 08/10/19 Unknown venlafaxine 150 mg PO BID 01/21/19 08/10/19 08/10/19 insulin aspart U-100 100 unit/mL 0 units SQ ACHS ml 01/30/19 08/10/19 08/10/19 17:00 (3 mL) subcutaneous pen meclizine 12.5 mg tablet 12.5 mg PO TID PRN 01/30/19 08/10/19 08/05/19 09:00 sacubitril 97 mg-valsartan 103 mg 1 tab PO BID 90 Days #180 tab 01/30/19 08/10/19 08/10/19 tablet bumetanide 4 mg PO QAM 02/27/19 08/10/19 08/10/19 potassium chloride 10 meq PO BID 02/27/19 08/10/19 08/10/19 digoxin 125 mcg (0.125 mg) tablet 125 mcg PO Q2D #45 tab 03/19/19 08/11/19 08/09/19 amiodarone 200 mg tablet 200 mg PO BID #180 tab 05/16/19 08/10/19 08/10/19 lorazepam 0.5 mg tablet 0.5 mg PO DAILY PRN #30 tab 07/25/19 08/10/19 Unknown bumetanide 2 mg PO .DAILY@LUNCH PRN 08/05/19 08/10/19 08/10/19 cholecalciferol (vitamin D3) 125 mcg PO 2XWK 08/05/19 08/10/19 Unknown tramadol 50 mg PO Q6H PRN 08/05/19 08/10/19 08/05/19 pantoprazole [Protonix] 40 mg PO BID #60 tab 08/07/19 08/10/19 08/10/19 Active Medications Generic Name Dose Route Start Last Admin Trade Name Freq PRN Reason Stop Dose Admin Allopurinol 300 mg 08/11/19 09:00 08/13/19 08:09 Zyloprim PO 09/10/19 08:59 300 mg QAM ASHLEIGH Administration Allopurinol 100 mg 08/11/19 09:00 08/13/19 08:09 Zyloprim PO 09/10/19 08:59 100 mg QAM ASHLEIGH Administration Amiodarone HCl 200 mg 08/11/19 09:00 08/13/19 08:09 Cordarone PO 09/10/19 08:59 200 mg BID ASHLEIGH Administration Atorvastatin Calcium 40 mg 08/11/19 21:00 08/12/19 20:41 Lipitor PO 09/10/19 20:59 40 mg QPM ASHLEIGH Administration Digoxin 0.125 mg 08/11/19 16:00 08/11/19 16:59 Lanoxin PO 09/10/19 15:59 0.125 mg Q48H ASHLEIGH Administration Insulin Aspart 0 units 08/11/19 02:16 08/13/19 08:08 Novolog Flexpen SC 09/10/19 02:15 Not Given ACHS [facility] Insulin Glargine 0 units 08/11/19 12:00 08/13/19 08:08 Remi Bolden Pen SC 09/10/19 11:59 Not Given BID [facility] Protocol Metoprolol Succinate 25 mg 08/11/19 09:00 08/13/19 08:09 Toprol Xl PO 09/10/19 08:59 25 mg BID ASHLEIGH Administration Pantoprazole Sodium 40 mg 08/11/19 02:16 08/13/19 08:09 Protonix PO 09/10/19 02:15 40 mg BID ASHLEIGH Administration Venlafaxine HCl 150 mg 08/11/19 09:00 08/13/19 08:09 Effexor Extended Release PO 09/10/19 08:59 150 mg BID ASHLEIGH Administration Past Medical History Medical History Anxiety (Inactive) Atrial fibrillation, chronic (Chronic) CAD (coronary artery disease) (Chronic) stenting to LAD in 1994 and 1996 stenting to RCA and LAD in 2007 CKD (chronic kidney disease) (Acute) Congestive heart failure (Resolved) Depression with anxiety (Chronic) Diabetes mellitus type II, controlled (Chronic) Diabetic neuropathy (Chronic) Dyslipidemia (Chronic) Gout HTN (hypertension) (Chronic) Ischemic dilated cardiomyopathy (Inactive) residential current use of anticoagulant (Chronic) warfarin daily Myocardial Infarction (Resolved) 1989. CARDIAC CATH WITH 2 STENTS ANTOINETTE on CPAP (Chronic) Systolic and diastolic CHF, chronic (Chronic) Past Family History Family History Mother Coronary heart disease Diabetes Father Lung cancer Sister Diabetes Past Surgical History Surgical History AICD (automatic cardioverter/defibrillator) present (Chronic) placed on 10/24/17 [employer] DEVICE. LAST CHECKED [address] DOMINGUEZ/[facility]. PLACED IN OCTOBER 2017 AT [facility] History of bowel resection (Resolved) MASSIVE POLPYS History of cardiac cath (Inactive) 1989 --> X2 STENTS. BARE METAL STENTS ~1992 --> X2 STENTS. DRUG ELUTING STENTS. History of cataract surgery (Resolved) BILATERAL History of colonoscopy (Inactive) History of heart artery stent (Resolved) History of partial colectomy (Resolved) "[facility]/ ilieorectal anast/ multiple polyps 2009" Stented coronary artery (Inactive) "stents x 4 to RCA and LAD 1997" Social History Smoking Status: Never smoker Hx Alcohol Use: No Hx Substance Use: No substance use type: does not use Physical Exam Vital Signs Last Vital Signs Temp 36.8 C 08/13/19 08:21 Pulse 88 08/13/19 08:21 Resp 20 08/13/19 08:21 BP 147/66 H 08/13/19 08:21 Pulse Ox 94 08/13/19 08:21 Testing Laboratory Results 08/13/19 05:52 08/13/19 05:52 PT 12.8 Seconds (9.0-12.0) H 08/13/19 05:52 INR 1.2 (0.9-1.1) H 08/13/19 05:52 APTT 29.0 Seconds (21.0-31.0) 08/10/19 21:32 Urine Color Yellow 08/11/19 03:45 Urine Appearance Cloudy (Clear) A 08/11/19 03:45 Urine pH 6.0 (4.5-7.5) 08/11/19 03:45 Ur Specific [place] 1.011 (1.000-1.030) 08/11/19 03:45 Urine Protein Negative (Negative) 08/11/19 03:45 Urine Glucose (UA) Negative (Negative) 08/11/19 03:45 Urine Ketones Negative (Negative) 08/11/19 03:45 Urine Nitrite Negative (Negative) 08/11/19 03:45 Ur Leukocyte Esterase 2+ (Negative) H 08/11/19 03:45 Urine WBC (Auto) >30 /hpf (0-5) H 08/11/19 03:45 Urine RBC (Auto) 10-30 /hpf (0-4) H 08/11/19 03:45 U Hyaline Cast (Auto) 1-5 /lpf (0-5) 08/11/19 03:45 U Epithel Cells (Auto) 5-10 /lpf (0-5) H 08/11/19 03:45 Urine Bacteria (Auto) 1+ (Negative) H 08/11/19 03:45 Blood Type AB Positive 08/10/19 23:37 Antibody Screen NEGATIVE 08/10/19 23:37 08/11/19 03:45 Urine Culture - Final Urine,Clean Catch Three types of organisms present, all high counts probable skin mady. No further identifications or sensitivities to follow. 08/13/19 07:38 POC Glucose 128 H
--- NOTE | 2019-08-13 09:55 | XRay Report ---
XR chest 2V PA/lateral CLINICAL HISTORY: SOB dyspnea COMPARISON STUDY: 08/10/2019 FINDINGS: Persistent increasing cardiac size. Increased pulmonary vasculature compared to the prior s tudy. Small bilateral pleural effusions. IMPRESSION: Congestive heart failure moderately progressive compared to the prior exam. ACT 112: Negative or not required by law. The above report was generated using voice recognition software. It may contain grammatical, syntax or spelling errors. Electronically signed by: Delmer Woodward M.D. 08/13/2019 9:54 AM
--- NOTE | 2019-08-13 10:08 | Gastroenterology Progress Note ---
Date of Service August 13, 2019 Assessment & Plan (1) Anemia: Pt is a 69 y/o male seen for symptomatic anemia, also found to have hematuria on eval. Planned for EGD/Colonoscopy eval today to r/o GI source of bleeding (last Colonoscopy in 2019 w findings of adenomatous polyps). However this AM reports acute SOB while using bathroom. His bowel prep wasn't finished (had 1/4 left of Golytely) and he is still passing chunks of stools. Will cancel EGD/Colonoscopy until SOB evaluated and resolved. Primary hospitalist (Dr. Horvath) notified and will f/u on CXR results, and discuss further w Cardiology. We will continue pt on CL diet for now and re-eval today/tomorrow to determine timing of EGD/Colonoscopy evals Admission and Anticipated Discharge Date Admission Date: August 11, 2019 Supervising Physician Co-Signing Physician Notes I saw and evaluated the patient. We will plan on performing upper endoscopy and colonoscopy due to his recurrent history of anemia. Unfortunately the patient was quite short of breath this morning and his bowel prep still was not clear. Recommendations Patient to continue with Colyte will give an additional half gallon this afternoon Upper endoscopy and colonoscopy tomorrow depending on respiratory status Consider urology evaluation for hematuria Subjective Pt reports acute SOB while using bathroom. Denies associated CP. He had Golytely prep but said still passing small chunks of stools. No n/v, abd pain symptoms. H/H stable. Review of Systems Review of Systems: All systems reviewed & are unremarkable except as noted in HPI & below Physical Exam Constitutional: WD/WN, vitals as above well groomed, cooperative and comfortable Eyes: PERRL, conjunctivae normal, anicteric sclerae ENMT: external ear and nose normal, oropharynx normal Respiratory: no respiratory distress and does not use accessory muscles Auscultation: + diminished lung sounds Cardiovascular: RRR, no murmur, no edema Gastrointestinal (Abdomen): normal bowel sounds, soft, nontender, no hepatosplenomegaly Skin: no rashes, warm and dry no jaundice Psychiatric: A+Ox3, euthymic affect Lymphatic: no lymphedema Results & Data ([facility]) Vital Signs (Past 12 Hours) Vital Signs Temp Pulse Resp BP Pulse Ox 08/13/19 08:21 36.8 C 88 20 147/66 H 94 05/26/20 03:20 96 08/13/19 03:19 36.7 C 83 19 131/69 87 L 08/12/19 23:35 36.4 C L 81 18 151/74 H 92
[2019-08-13] MEDS ORDERED: FUROSEMIDE 40 MG in SYRINGE 0 ML IV ONE ×2 (11:00→18:00)
--- NOTE | 2019-08-13 11:57 | Cardiology Progress Note ---
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 Systolic and diastolic CHF, chronic: - had outpatient diuretics held overnight in anticipation of colonoscopy this AM - patient appears more edematous than yesterday with worsened edema - CXR demonstrated increased pulmonary edema suggestive of moderate progression of CHF as compared to CXR from 08/09 - patient typically on Bumex 2mg AM, 4mg PM at home - received Lasix 40mg IV this AM - monitor strict I/Os Vertebrobasilar TIA: - patient needs to be on anti-platelet therapy for reduction of risk of recurrent events - would continue to hold anti-coagulation at this point until GI work-up can be completed for evaluation of source of recent significant anemia - would discontinue aspirin in favor of starting Plavix if deemed failure of ASA generating symptoms, following GI work-up Anemia: - would need completed EGD, and Colonoscopy for definitive source of recent anemia - if no source found then question as to whether capsule study would be indicated AICD: - h/o multiple ICD therapies - device to be interrogated today Atrial fibrillation: - currently rate controlled, and asymptomatic - hold anti-coagulation given recent bleed Ischemic cardiomyopathy: - continue metoprolol and Entresto (2) Vertebrobasilar circulation transient ischemic attack: (3) Anemia: (4) AICD (automatic cardioverter/defibrillator) present: (5) Atrial fibrillation, chronic: (6) Ischemic cardiomyopathy: Admission and Anticipated Discharge Date Admission Date: August 11, 2019 Supervising Physician Co-Signing Physician Notes The patient was seen and examined. Agree with Dr. Hebert's assessment and plan. Subjective Underwent prep for colonoscopy overnight, this morning when attempting to get up to go to the bathroom he felt some chest tightness and discomfort with shortness of breath. Denies chest pain or palpitations. Yesterday his diuretic was held in anticipation of colonoscopy and bowel prep exacerbating potential for dehydration. Review of Systems Review of Systems: All systems reviewed & are unremarkable except as noted in Subjective Physical Exam Constitutional: WD/WN, vitals as above Eyes: PERRL, conjunctivae normal, anicteric sclerae Neck: normal visual inspection Respiratory: normal respiratory effort Auscultation: + crackles (b/l bases); no rales and no wheezes Cardiovascular: Rate/Rhythm: regular rate and regular rhythm Heart Sounds: normal S1 and normal S2 Vessels: no JVD Extremities: + pedal edema (R>L 1+ pitting edema) Gastrointestinal (Abdomen): normal bowel sounds, soft, nontender, no hepatosplenomegaly Skin: + skin tightening (venous stasis changes to b/l LE); no erythema Results & Data ([facility]) Vital Signs (Past 12 Hours) Vital Signs Temp Pulse Resp BP Pulse Ox 08/13/19 08:21 36.8 C 88 20 147/66 H 94 08/13/19 03:20 96 08/13/19 03:19 36.7 C 83 19 131/69 87 L 08/12/19 23:35 36.4 C L 81 18 151/74 H 92 Laboratory Results 08/13/19 08/13/19 08/13/19 Range/Units 11:16 07:38 05:52 Hgb (14.0-18.0) g/dL Hct (42-52) % PT (9.0-12.0) Seconds INR (0.9-1.1) Sodium 137 (136-145) mmol/L Potassium 4.9 D (3.5-5.1) mmol/L Chloride 103 (98-107) mmol/L Carbon Dioxide 29 (21-32) mmol/L Anion Gap 5.0 (3-11) BUN 23 H (7-18) mg/dl Creatinine 1.34 (0.6-1.4) mg/dl Est Cr Clr Drug Dosing 63.1 ml/min Est GFR ( Amer) 62.2 Est GFR (Non-Af Amer) 53.7 BUN/Creatinine Ratio 17.2 (10-20) Glucose 123 H (70-99) mg/dl POC Glucose 158 H 128 H (70-99) mg/dl Calcium 8.5 (8.5-10.1) mg/dl 08/13/19 08/13/19 08/12/19 Range/Units 05:52 05:52 20:06 Hgb 8.7 L (14.0-18.0) g/dL Hct 27.8 L (42-52) % PT 12.8 H (9.0-12.0) Seconds INR 1.2 H (0.9-1.1) Sodium (136-145) mmol/L Potassium (3.5-5.1) mmol/L Chloride (98-107) mmol/L Carbon Dioxide (21-32) mmol/L Anion Gap (3-11) BUN (7-18) mg/dl Creatinine (0.6-1.4) mg/dl Est Cr Clr Drug Dosing ml/min Est GFR ( Amer) Est GFR (Non-Af Amer) BUN/Creatinine Ratio (10-20) Glucose (70-99) mg/dl POC Glucose 138 H (70-99) mg/dl Calcium (8.5-10.1) mg/dl 08/12/19 08/12/19 Range/Units 16:22 11:45 Hgb (14.0-18.0) g/dL Hct (42-52) % PT (9.0-12.0) Seconds INR (0.9-1.1) Sodium (136-145) mmol/L Potassium (3.5-5.1) mmol/L Chloride (98-107) mmol/L Carbon Dioxide (21-32) mmol/L Anion Gap (3-11) BUN (7-18) mg/dl Creatinine (0.6-1.4) mg/dl Est Cr Clr Drug Dosing ml/min Est GFR ( Amer) Est GFR (Non-Af Amer) BUN/Creatinine Ratio (10-20) Glucose (70-99) mg/dl POC Glucose 119 H 136 H (70-99) mg/dl Calcium (8.5-10.1) mg/dl Medications Administered Current Inpatient Medications Acetaminophen (Tylenol) 650 mg PO Q4H PRN PRN Reason: Pain or Fever Stop: 09/10/19 02:15 Allopurinol (Zyloprim) 300 mg PO QAM COUNTS INCLUDE 234 BEDS AT THE [facility] Stop: 09/10/19 08:59 Last Admin: 08/13/19 08:09 Dose: 300 mg Documented by: Allopurinol (Zyloprim) 100 mg PO QAM COUNTS INCLUDE 234 BEDS AT THE [facility] Stop: 09/10/19 08:59 Last Admin: 08/13/19 08:09 Dose: 100 mg Documented by: Amiodarone HCl (Cordarone) 200 mg PO BID COUNTS INCLUDE 234 BEDS AT THE [facility] Stop: 09/10/19 08:59 Last Admin: 08/13/19 08:09 Dose: 200 mg Documented by: Atorvastatin Calcium (Lipitor) 40 mg PO QPM COUNTS INCLUDE 234 BEDS AT THE [facility] Stop: 09/10/19 20:59 Last Admin: 08/12/19 20:41 Dose: 40 mg Documented by: Dextrose (Dextrose 50%) 25 - 50 ml IV UD PRN; Protocol PRN Reason: Hypoglycemia Protocol Stop: 09/10/19 02:15 Digoxin (Lanoxin) 0.125 mg PO Q48H COUNTS INCLUDE 234 BEDS AT THE [facility] Stop: 09/10/19 15:59 Last Admin: 08/11/19 16:59 Dose: 0.125 mg Documented by: Glucagon (Glucagen) 1 mg SQ UD PRN; Protocol PRN Reason: Hypoglycemia Protocol Stop: 09/10/19 02:15 Glucose (Dex4 Glucose) 4 - 8 tabs PO UD PRN; Protocol PRN Reason: Hypoglycemia Protocol Stop: 09/10/19 02:15 Glucose (Glucose 40%) 15 - 30 gm PO UD PRN; Protocol PRN Reason: Hypoglycemia Protocol Stop: 09/10/19 02:15 Hydromorphone HCl (Dilaudid) 0.25 mg IV Q3H PRN PRN Reason: Pain Stop: 08/25/19 02:15 Promethazine HCl 12.5 mg/ (Sodium Chloride) 50.5 mls @ 202 mls/hr IV Q6H PRN PRN Reason: Nausea And Vomiting Stop: 09/10/19 02:15 Insulin Aspart (Novolog Flexpen) 0 units SC ACHS COUNTS INCLUDE 234 BEDS AT THE [facility] Stop: 09/10/19 02:15 Last Admin: 08/13/19 08:08 Dose: Not Given Documented by: Insulin Glargine (Lantus Solostar Pen) 0 units SC BID COUNTS INCLUDE 234 BEDS AT THE [facility]; Protocol Stop: 09/10/19 11:59 Last Admin: 08/13/19 08:08 Dose: Not Given Documented by: Metoprolol Succinate (Toprol Xl) 25 mg PO BID COUNTS INCLUDE 234 BEDS AT THE [facility] Stop: 09/10/19 08:59 Last Admin: 08/13/19 08:09 Dose: 25 mg Documented by: Miscellaneous (Carbohydrates For Hypoglycemia) 15 - 30 gm PO UD PRN PRN Reason: Hypoglycemia Protocol Stop: 09/10/19 02:15 Miscellaneous Information (Consult Glycemic Management Pharmacy) 1 ea N/A UD PRN PRN Reason: Consult Stop: 09/10/19 09:40 Nitroglycerin (Nitrostat) 0.4 mg SL UD PRN PRN Reason: Chest Pain Stop: 09/10/19 02:15 Pantoprazole Sodium (Protonix) 40 mg PO BID COUNTS INCLUDE 234 BEDS AT THE [facility] Stop: 09/10/19 02:15 Last Admin: 08/13/19 08:09 Dose: 40 mg Documented by: Tramadol HCl (Ultram) 25 - 50 mg PO Q6H PRN PRN Reason: Pain Stop: 09/10/19 02:15 Venlafaxine HCl (Effexor Extended Release) 150 mg PO BID COUNTS INCLUDE 234 BEDS AT THE [facility] Stop: 09/10/19 08:59 Last Admin: 08/13/19 08:09 Dose: 150 mg Documented by: PG Care Time/CCT Total # of Minutes Spent Total Time Spent with Patient: Total time spent is greater than 50% in coordination of care (as documented) at patient's floor/unit and/or counseling patient: Coding Level of Care Code 04604 Subseq Hosp Care Lvl 3 Diagnoses Systolic and diastolic CHF, chronic I50.42 Vertebrobasilar circulation transient ischemic attack G45.0 Anemia D64.9 AICD (automatic cardioverter/defibrillator) present Z95.810 Atrial fibrillation, chronic I48.2 Ischemic cardiomyopathy I25.5 Resident Activity Tracking Resident Involvement: Resident Care Provided Care Provided: Adult Hospital Medicine (Cardiology)
[2019-08-13] MEDS ORDERED: OPTIRAY 320 125ml IV PRN (15:24)
--- NOTE | 2019-08-13 15:41 | CT Scan Report ---
CT angio chest PE protocol CT DOSE: 562.61 mGycm HISTORY: Chest pain. Dyspnea. PE TECHNIQUE: Multiaxial CT images of the chest were performed following the intravenous administration of contrast to evaluate the pulmonary arteries. Maximal intensity projection images were also obtaine d. A dose lowering technique was utilized adhering to the principles of ALARA. COMPARISON STUDY: 08/06/2017 FINDINGS: Cardiomegaly. Moderate pericardial effusion. Bilateral pleural effusions. Moderate consolid ative change left lower lobe. Pulmonary vasculature enhances uniformly. No major filling defects. IMPRESSION: 1. No evidence of pulmonary embolus. 2. Cardiomegaly with findings of a pericardial effusion. Maximum thickness of 1.1 cm. 3. Bilateral pleural effusions with mild consolidative change left lower lobe. ACT 112: Negative or not required by law. The above report was generated using voice recognition software. It may contain grammatical, syntax or spelling errors. Electronically signed by: Delmer oWodward M.D. 08/13/2019 3:39 PM
[2019-08-13] MEDS: DIGOXIN 0.125 MG TAB PO SCH (16:53)
[2019-08-13] MEDS ORDERED: LAVAGE SOLUTION 4000ML PO SCH (17:00)
--- NOTE | 2019-08-13 17:46 | Hospitalist Progress Note ---
Date of Service August 13, 2019 Assessment & Plan (1) SOB (shortness of breath): Acute systolic CHF exacerbation CXR:Interval development of mild congestive change. Cardiomegaly and small bilateral pleural effusions persist. H/O ischemic cardiomyopathy S/P AICD ICD Interrogation completed EF:35% in 2019 CTA on 08/13/19: No evidence of pulmonary embolus. Cardiomegaly with findings of a pericardial effusion. Maximum thickness of 1.1 cm. Bilateral pleural effusions with mild consolidative change left lower lobe. Continue Entresto Given IV Lasix today Resume PO diuretics as able Appreciate Cardiology Input Monitor Volume status closely Supplemental oxygen as needed Pericardial Effusion Incidental finding on CT--as above Cardiology on board Symptomatic anemia Positive fecal occult Hemoglobin dropped from prior admission despite being off Coumadin S/P 1 unit PRBCs BUN mildly elevated, total bilirubin within normal limits Aspirin held Monitor H&H and transfuse PRBCs as needed Appreciate GI input Avoid any anticoagulants Hb:8.7 today On Bowel Prep today Plan for EGD, colonoscopy tomorrow if respiratory status improves Microscopic Hematuria No gross hematuria noted Repeat UA tomorrow Consider Urology Input if needed Stroke like Symptoms/Vertigo ? Vertebrobasilar TIA In setting of Hypoglycemia ? TIA while off anticoagulation DD: Hypoglycemia, ICD problems, complex migraine CT head:No acute intracranial findings. No significant change in appearance of the brain. Carotid Doppler: 50-69% stenosis of the origin/proximal left internal carotid artery. Neurology Consulted Aspirin, Coumadin currently on hold due to GI bleed Continue statin Pacemaker Interrogation requested Resume antiplatelet drugs (Consider staring Plavix instead of Aspirin) as able Vs consideration for possible watchman device Cardiology/Neurology following CKD III Baseline Cr:1.4-1.7 Monitor renal function CAD Aspirin on hold Continue Lipitor, metoprolol, Entresto H/O atrial fibrillation Rate controlled Currently off anticoagulation due to GI bleed issues Continue amiodarone, metoprolol, digoxin Resume anticoagulation as soon as possible Hyperlipidemia on statin DM II Hypoglycemic prior to admission Hb A1C:6.22 Jul 2019 Continue insulin therapy Glycemic pharmacy consult. Hypokalemia Likely due to medications Replete electrolytes as needed ANTOINETTE on CPAP INR in therapeutic range Despite off Coumadin Patient denies taking Coumadin since last discharge S/P Vit K INR:2.1>>1.7>>1.2 Monitor INR DVT Px: SCD RE occult GI/symptomatic anemia Code Status Full code Disposition Expect to discharge home when medically stable Admission and Anticipated Discharge Date Admission Date: August 11, 2019 Subjective Patient is seen and examined at bedside Reports dyspnea with minimal exertion, and dizziness this morning States having transient chest tightness, discomfort EGD, colonoscopy held due to above for now CT suggestive of bilateral pleural effusion, pericardial effusion Denies any nausea, abdominal pain Hb remains stable Review of Systems Review of Systems: All systems reviewed & are unremarkable except as noted in HPI & below Physical Exam Physical Exam: Physical Exam: Vitals signs as noted above General Appearance:Obese, no apparent distress Head: normocephalic, Atraumatic Eyes: normal inspection, EOMI Neck: supple, Trachea midline Respiratory/Chest: Decreased breath sounds at bases , CTA Cardiovascular: S1, S2, No murmur Abdomen/GI:Soft, Non tender, Bowel sounds present Extremities/Musculoskelatal:normal inspection, +Edema, Chronic B/L venous stasis changes Neurologic/Psych:AAOX3, grossly no focal neurological deficits Skin: normal color, warm Results & Data Results & Data ([facility]) Vital Signs (Past 12 Hours) Vital Signs Temp Pulse Pulse Resp BP Pulse Ox 08/13/19 16:53 82 08/13/19 16:05 36.6 C 85 16 130/70 97 08/13/19 11:49 37.0 C 96 H 18 144/68 H 99 08/13/19 08:21 36.8 C 88 20 147/66 H 94 Laboratory Results Short CBC 08/13/19 Range/Units 05:52 Hgb 8.7 L (14.0-18.0) g/dL Hct 27.8 L (42-52) % BMP 08/13/19 05:52 Sodium 137 Potassium 4.9 D Chloride 103 Carbon Dioxide 29 BUN 23 H Creatinine 1.34 Glucose 123 H Calcium 8.5
--- NOTE | 2019-08-13 19:27 | Communication Note ---
Date of Service: July Mr. Zavala had a carotid artery ultrasound showing 50 to 69% stenosis of the origin of left internal carotid. This has nothing to do with his symptoms which suggested a brainstem ischemia on 2 occasions. This will need to be followed up by yearly ultrasound studies and this could be performed by his primary care physician. Colin Cruz MD
[2019-08-13] MEDS: ATORVASTATIN 40 MG TAB PO SCH (19:58)
[2019-08-14] MEDS ORDERED: OLANZapine 10 MG/2.1 ML SDV IM PRN (02:26)
[2019-08-14 02:50] LABS: Eosinophils # (auto) 0.01 K/uL (0-0.5); Eosinophils % (auto) 0.1 %; Hematocrit (blood only) 29.1 % (42-52); Hemoglobin 8.9 g/dL (14.0-18.0); Immature Granulocytes # (auto) 0.02 K/uL (0.00-0.02); Immature Granulocytes % (auto) 0.2 %; Lymphocytes # (auto) 0.71 K/uL (1.2-3.4); Lymphocytes % (auto) 7.1 %; Mean Corpuscular Hemoglobin 30.2 pg (25-34); Mean Corpuscular Hgb Conc 30.6 g/dL (32-36); Mean Corpuscular Volume 98.6 fL (80-100); Monocytes # (auto) 1.19 K/uL (0.11-0.59); Monocytes % (auto) 11.9 %; Neutrophils # (auto) 8.09 K/uL (1.4-6.5); Neutrophils % (auto) 80.7 %; Nucleated RBC # (auto) 0.05 K/uL (0-0); Nucleated RBC % (auto) 0.5 %; Platelet Count 249 K/uL (130-400); RDW Coefficient of Variation 18.9 % (11.5-14.5); RDW Standard Deviation 66.7 fL (36.4-46.3); Red Blood Count 2.95 M/uL (4.7-6.1); White Blood Count 10.02 K/uL (4.8-10.8)
[2019-08-14 02:58] LABS: INR 1.3 (0.9-1.1); Prothrombin Time 13.3 Seconds (9.0-12.0)
[2019-08-14 03:12] LABS: Albumin Globulin Ratio 0.9 (0.9-2); Albumin Level 3.1 gm/dl (3.4-5.0); BUN Creatinine Ratio 12.7 (10-20); Bilirubin,Total 1.7 mg/dl (0.2-1); Calcium 8.4 mg/dl (8.5-10.1); Creatinine Clr Calc Pharmacy 50.6 ml/min; Est GFR (African American) 47.7; Est GFR (Non-African American) 41.1; Globulin 3.6 gm/dl (2.5-4.0); Magnesium 2.1 mg/dl (1.8-2.4); Potassium 3.8 mmol/L (3.5-5.1); Total Protein 6.7 gm/dl (6.4-8.2)
[2019-08-14] MEDS ORDERED: OLANZapine 10 MG/2.1 ML SDV IM STA (03:16)
[2019-08-14] MEDS ORDERED: XOPENEX/ATROVENT 1.25mg/0.5MG NEB COMBO NEB PRN (03:16)
[2019-08-14] MEDS ORDERED: XOPENEX/ATROVENT 1.25mg/0.5MG NEB COMBO NEB STA (03:17)
[2019-08-14] MEDS ORDERED: METOPROLOL TARTRATE 1 MG/ML VIAL IV STA (03:18)
[2019-08-14] MEDS ORDERED: IPRATROPIUM BROMIDE NEB SOLN 0.02% 2.5 ML VIAL INH STA (03:23)
[2019-08-14] MEDS ORDERED: LEVALBUTEROL 1.25MG/0.5ML NEB INH STA (03:23)
[2019-08-14] MEDS ORDERED: IPRATROPIUM BROMIDE NEB SOLN 0.02% 2.5 ML VIAL INH PRN (03:30)
[2019-08-14] MEDS ORDERED: LEVALBUTEROL 1.25MG/0.5ML NEB INH PRN (03:30)
[2019-08-14] MEDS ORDERED: ALBUMIN 25% 50 ML with FUROSEMIDE 80 MG IV ONE (03:32)
[2019-08-14] MEDS: POTASSIUM CHLORIDE / WTR 10 MEQ/100 ML PLCT IV SCH ×2 (03:42→04:34)
[2019-08-14 04:13] LABS: Base Excess ABG -0.3 mEq/L (-9-1.8); HCO3 ABG 28 mmol/L (19-24); Oxygen Saturation ABG 88.1 % (90-95); PCO2 ABG 65 mmHg (35-46); PO2 ABG 71 mmHg (80-95); pH ABG 7.25 (7.35-7.45)
[2019-08-14 04:14] LABS: Allen Test POS (Pos)
[2019-08-14 04:19] LABS: Appearance Urine Clear (Clear); Bacteria Urine Automated Negative (Negative); Bilirubin Urine Negative (Negative); Blood Urine Trace (Negative); Color Urine Yellow; Epithelial Cell Urine Auto >30 /lpf (0-5); Glucose Urine UA Negative (Negative); Ketones Urine Negative (Negative); Leukocyte Esterase Urine 1+ (Negative); Nitrite Urine Negative (Negative); Protein Urine Trace (Negative); RBC Urine Automated 0-4 /hpf (0-4); Specific Gravity Urine 1.021 (1.000-1.030); Urobilinogen Urine Negative (Negative); pH Urine 5.5 (4.5-7.5)
[2019-08-14 05:42] LABS: Base Excess ABG 2.3 mEq/L (-9-1.8); HCO3 ABG 28 mmol/L (19-24); PCO2 ABG 46 mmHg (35-46); PO2 ABG 110 mmHg (80-95); pH ABG 7.39 (7.35-7.45)
[2019-08-14 05:50] LABS: Allen Test Pos (Pos)
--- NOTE | 2019-08-14 07:25 | XRay Report ---
XR chest 1V portable CLINICAL HISTORY: sob COMPARISON STUDY: 08/13/2019 FINDINGS: The chronic silhouette is enlarged and appears globular. This suggests a pericardial effusi on.. There is radiographic evidence of congestive failure/fluid overload. There are bilateral pleural effusions. There are associated basilar airspace opacities. While likely representing atelectasis or edema, a coexistent pneumonia cannot be excluded.[There is a left subclavian pacer/defibrillator. IMPRESSION: 1. Cardiomegaly and radiographic evidence of congestive failure/fluid overload. Bilateral pleural eff usions with associated basilar opacities. 2. Globular configuration of the heart, suggestive of a pericardial effusion ACT 112: Negative or not required by law. Electronically signed by: Moreno London M.D. 08/14/2019 7:24 AM
[2019-08-14] MEDS ORDERED: PROPOFOL IV EMULSION 10 MG/ML 20 ML VIAL IV ONE (08:19)
[2019-08-14] MEDS ORDERED: LIDOCAINE HCL 2% 2 ML VIAL/AMP(20MG/ML) INFIL ONE (08:19)
[2019-08-14] MEDS ORDERED: fentaNYL citrate 100 MCG/2 ML VIAL ONE (08:19)
[2019-08-14] MEDS: INSULIN ASPART 100 UNITS/ML 3 ML PEN SC SCH ×4 (08:23→20:31)
--- NOTE | 2019-08-14 09:12 | Communication Note ---
Date of Service: August 14, 2019 Pt scheduled for EGD/Colonoscopy this AM for anemia evaluation. However overnight he became hypoxic, currently on BiPAP FiO2 50%. He is very somnolent, hard to arouse even with pain stimuli. Blood ct stable, no signs of active GI bleeding (hematemesis, melena). Will cancel EGD/Colonoscopy. Please recall GI if endoscopic eval for anemia is still needed after cardiopulmonary status is optimized.
[2019-08-14] MEDS ORDERED: FUROSEMIDE 80 MG in SYRINGE 0 ML IV ONE (09:30)
[2019-08-14] MEDS: INSULIN GLARGINE SOLOSTAR 100 UNITS/ML 3 ML PEN SC SCH ×2 (09:39→20:31)
[2019-08-14] MEDS: AMIODARONE 200 MG TAB PO SCH ×2 (09:43→20:08)
[2019-08-14] MEDS: VENLAFAXINE HCL XR 150 MG CAPXR PO SCH ×2 (09:44→20:08)
[2019-08-14] MEDS: METOPROLOL SUCC 25MG EXT REL TAB PO SCH ×2 (09:44→20:09)
[2019-08-14] MEDS: allopurinoL 300 MG TAB PO SCH (09:44)
[2019-08-14] MEDS: PANTOprazole 40 MG TAB PO SCH ×2 (09:44→20:09)
[2019-08-14] MEDS: allopurinoL 100 MG TAB PO SCH (09:45)
--- NOTE | 2019-08-14 12:14 | Pharmacy Report ---
Pharmacy Glycemic Short Note 2 - Date of Service August 14, 2019 - Glycemic Short BSG Results (Last 24 hours): OUTPATIENT ANTIDIABETIC REGIMEN: * A1c = 6.4% * Lantus 45 units SQ qAM * Novolog SS ASSESSMENT: 08/13: * Patient was to be NPO after midnight for a scope this AM; however, based on mental status change and limited arousability, procedure was cancelled. Spoke with RN who said patient's mental status has been improving this AM but he remains very sleepy. She will attempt to wake him up to eat lunch. * Patient received 21 units total of insulin yesterday * 10 units basal * 11 units bolus * BSGs ranged 128-155 mg/dL * Fasting BSG this AM was 201 mg/dL, uncontrolled; patient received 15 units of basal insulin for this BSG * Will adjust basal scale this evening to account for amount received this AM and NPO status * Estimating patient requires 10-15 units of basal per day PLAN FOR INPATIENT GLYCEMIC CONTROL: * Basal insulin - decreased * Lantus per scale SQ BID: * HOLD for BSG < 140 * 5 units for BSG 140-220 * 10 units for BSG > 220 * Bolus insulin * NovoLog per scale ACHS or Q6hrs while NPO * Goal Range: Low 120 mg/dL - High 150 mg/dL * Correction Factor: 25 mg/dL/unit * Nutritional / Prandial insulin per carb ratio of 1 unit per 8 grams CHO consumed PLAN FOR DISCHARGE: * A1c of 6.4% indicates excellent glycemic control * Patient was hypoglycemic on admission (BSG = 45 mg/dL). Based on age and co morbidities, would recommend a goal A1c < 7.5%. Recommend decreasing home Lantus dose by 30% to 30 units QAM. Close follow-up with outpatient provider/funeral home manager is recommended to discuss current regimen, A1c and hypoglycemia at home.
--- NOTE | 2019-08-14 15:59 | Hospitalist Progress Note ---
Date of Service August 14, 2019 Assessment & Plan (1) SOB (shortness of breath): Acute systolic and diastolic CHF exacerbation CXR:Interval development of mild congestive change. Cardiomegaly and small bilateral pleural effusions persist. H/O ischemic cardiomyopathy with EF of 35% in 2019 S/P AICD-ICD Interrogation completed CTA on 08/13/19: No evidence of pulmonary embolus. Cardiomegaly with findings of a pericardial effusion. Maximum thickness of 1.1 cm. Bilateral pleural effusions with mild consolidative change left lower lobe. Continue Entresto Received 40 of IV Lasix on 08/13/2019 Appreciate Cardiology Input and recommendation Condition got worse overnight and required BiPAP therapy Chest x-ray showed-acute CHF We will give 80 of Lasix IV and continue accordingly Pericardial Effusion Incidental finding on CT--as above Nothing to suggest tamponade Symptomatic anemia Positive fecal occult in the emergency room Hemoglobin dropped from prior admission despite being off Coumadin Received 2 units of blood transfusion BUN mildly elevated, total bilirubin within normal limits Aspirin held Appreciate GI input-planed EGD has been canceled as of 08/14/2019 due to worsening cardiac condition Avoid any anticoagulants Hemoglobin remained stable at more than 8 since blood transfusion Microscopic Hematuria No gross hematuria noted Repeat UA tomorrow Consider Urology Input if needed Stroke like Symptoms/Vertigo DD: Hypoglycemia, ICD problems, complex migraine CT head:No acute intracranial findings. No significant change in appearance of the brain. Carotid Doppler: 50-69% stenosis of the origin/proximal left internal carotid artery. Neurology Consulted -no further recommendation as symptoms are not due to Doppler findings in neck Resume antiplatelet drugs (Consider staring Plavix instead of Aspirin) as able Vs consideration for possible watchman device CKD III Baseline Cr:1.4-1.7 Monitor renal function CAD Aspirin on hold Continue Lipitor, metoprolol, Entresto H/O atrial fibrillation Rate controlled Currently off anticoagulation due to GI bleed issues Continue amiodarone, metoprolol, digoxin Resume anticoagulation as soon as possible Hyperlipidemia on statin DM II Hypoglycemic prior to admission Hb A1C:6.22 Jul 2019 Continue insulin therapy Glycemic pharmacy consult. Hypokalemia Likely due to medications Replete electrolytes as needed ANTOINETTE on CPAP DVT Px: Was on Coumadin SCD RE occult GI/symptomatic anemia Code Status Full code Disposition Expect to discharge home when medically stable Updated the sister on 08/14/2019 Admission and Anticipated Discharge Date Admission Date: August 11, 2019 Subjective The patient was seen and examined in telemetry unit He was noted to be very somnolent this morning that EGD has been canceled He remains very drowsy but always responding to commands Denies any significant pain Review of Systems Review of Systems: Unobtainable due to mental health condition Physical Exam Physical Exam: Lying in bed without any acute distress Constitutional: well developed, well nourished, + ill appearing and + obese; no acute distress Eyes: PERRL, conjunctivae normal, anicteric sclerae ENMT: external ear and nose normal, oropharynx normal Neck: trachea midline, no thyromegaly Respiratory: + respiratory distress (Minimal distress and has been on BiPAP) Auscultation: + diminished lung sounds and + crackles (Bibasilar crackles); no wheezes Cardiovascular: Rate/Rhythm: + irregularly irregular Extremities: + edema (1+ bilateral leg edema) Gastrointestinal (Abdomen): Inspection/Auscultation: + abdomen distended Percussion/Palpation: abdomen soft; abdomen nontender Musculoskeletal: No acute arthritis in any joints Neurologic: moves all extremities and + focal motor deficit Gets restless at times Lymphatic: no cervical or axillary lymphadenopathy Results & Data Results & Data ([facility]) Vital Signs (Past 12 Hours) Vital Signs Temp Pulse Pulse Resp BP BP Pulse Ox 08/14/19 15:40 96 H 08/14/19 15:35 36.8 C 83 19 146/70 H 96 08/14/19 15:20 84 22 93 08/14/19 11:37 36.3 C L 90 20 129/89 95 08/14/19 11:26 90 23 99 08/14/19 08:00 36.3 C L 73 92 H 26 H 158/83 H 99 08/14/19 07:34 95 H 22 98 08/14/19 05:05 36.6 C 102 H 19 150/76 H 98 08/14/19 04:27 97 H 26 H 96 08/14/19 04:14 100 H 28 H 88 L 08/14/19 04:04 108 H 22 163/65 H 90 Laboratory Results Short CBC 08/14/19 Range/Units 02:42 WBC 10.02 (4.8-10.8) K/uL Hgb 8.9 L (14.0-18.0) g/dL Hct 29.1 L (42-52) % Plt Count 249 (130-400) K/uL BMP 08/14/19 02:42 Sodium 136 Potassium 3.8 D Chloride 100 Carbon Dioxide 27 BUN 21 H Creatinine 1.67 H D Glucose 188 H Calcium 8.4 L Liver Function 08/14/19 Range/Units 02:42 Total Bilirubin 1.7 H (0.2-1) mg/dl AST 20 (15-37) U/L ALT 28 (12-78) U/L Alkaline Phosphatase 123 H (45-117) U/L Albumin 3.1 L (3.4-5.0) gm/dl Urine 08/14/19 Range/Units 04:05 Urine Color Yellow Urine Appearance Clear (Clear) Urine pH 5.5 (4.5-7.5) Ur Specific [place] 1.021 (1.000-1.030) Urine Protein Trace H (Negative) Urine Glucose (UA) Negative (Negative) Medications Administered Current Inpatient Medications Acetaminophen (Tylenol) 650 mg PO Q4H PRN PRN Reason: Pain or Fever Stop: 09/10/19 02:15 Allopurinol (Zyloprim) 300 mg PO QAM [facility] Stop: 09/10/19 08:59 Last Admin: 08/14/19 09:44 Dose: Not Given Documented by: Allopurinol (Zyloprim) 100 mg PO QAM [facility] Stop: 09/10/19 08:59 Last Admin: 08/14/19 09:45 Dose: Not Given Documented by: Amiodarone HCl (Cordarone) 200 mg PO BID [facility] Stop: 09/10/19 08:59 Last Admin: 08/14/19 09:43 Dose: Not Given Documented by: Atorvastatin Calcium (Lipitor) 40 mg PO QPM [facility] Stop: 09/10/19 20:59 Last Admin: 08/13/19 19:58 Dose: 40 mg Documented by: Dextrose (Dextrose 50%) 25 - 50 ml IV UD PRN; Protocol PRN Reason: Hypoglycemia Protocol Stop: 09/10/19 02:15 Digoxin (Lanoxin) 0.125 mg PO Q48H [facility] Stop: 09/10/19 15:59 Last Admin: 08/13/19 16:53 Dose: 0.125 mg Documented by: Glucagon (Glucagen) 1 mg SQ UD PRN; Protocol PRN Reason: Hypoglycemia Protocol Stop: 09/10/19 02:15 Glucose (Dex4 Glucose) 4 - 8 tabs PO UD PRN; Protocol PRN Reason: Hypoglycemia Protocol Stop: 09/10/19 02:15 Glucose (Glucose 40%) 15 - 30 gm PO UD PRN; Protocol PRN Reason: Hypoglycemia Protocol Stop: 09/10/19 02:15 Hydromorphone HCl (Dilaudid) 0.25 mg IV Q3H PRN PRN Reason: Pain Stop: 08/25/19 02:15 Promethazine HCl 12.5 mg/ (Sodium Chloride) 50.5 mls @ 202 mls/hr IV Q6H PRN PRN Reason: Nausea And Vomiting Stop: 09/10/19 02:15 Insulin Aspart (Novolog Flexpen) 0 units SC ACHS [facility] Stop: 09/10/19 02:15 Last Admin: 08/14/19 12:07 Dose: 1 units Documented by: Insulin Glargine (Lantus Solostar Pen) 0 units SC BID [facility]; Protocol Stop: 09/10/19 11:59 Last Admin: 08/14/19 09:39 Dose: 15 units Documented by: Ioversol (Optiray 320 125ml) 119 ml IV ONCE PRN PRN Reason: Interaction Checking Stop: 08/17/19 15:23 Last Admin: 08/13/19 15:25 Dose: 119 ml Documented by: Ipratropium [place] (Atrovent 0.02% 0.5mg/2.5ml) 0.5 mg INH Q4H PRN PRN Reason: Shortness Of Breath Or Wheezing Stop: 09/13/19 03:29 Levalbuterol HCl (Xopenex 1.25mg/0.5ml Neb) 1.25 mg INH Q4H PRN PRN Reason: Shortness Of Breath Or Wheezing Stop: 09/13/19 03:29 Metoprolol Succinate (Toprol Xl) 25 mg PO BID [facility] Stop: 09/10/19 08:59 Last Admin: 08/14/19 09:44 Dose: Not Given Documented by: Miscellaneous (Carbohydrates For Hypoglycemia) 15 - 30 gm PO UD PRN PRN Reason: Hypoglycemia Protocol Stop: 09/10/19 02:15 Miscellaneous Information (Consult Glycemic Management Pharmacy) 1 ea N/A UD PRN PRN Reason: Consult Stop: 09/10/19 09:40 Nitroglycerin (Nitrostat) 0.4 mg SL UD PRN PRN Reason: Chest Pain Stop: 09/10/19 02:15 Olanzapine (Zyprexa) 2.5 mg IM Q4H PRN PRN Reason: Anxiety/Agitation Stop: 09/13/19 02:25 Last Admin: 08/14/19 02:37 Dose: 2.5 mg Documented by: Pantoprazole Sodium (Protonix) 40 mg PO BID [facility] Stop: 09/10/19 02:15 Last Admin: 08/14/19 09:44 Dose: Not Given Documented by: Tramadol HCl (Ultram) 25 - 50 mg PO Q6H PRN PRN Reason: Pain Stop: 09/10/19 02:15 Venlafaxine HCl (Effexor Extended Release) 150 mg PO BID [facility] Stop: 09/10/19 08:59 Last Admin: 08/14/19 09:44 Dose: Not Given Documented by:
[2019-08-14] MEDS: ATORVASTATIN 40 MG TAB PO SCH (20:09)
[2019-08-15] MEDS: VENLAFAXINE HCL XR 150 MG CAPXR PO SCH ×2 (08:47→21:11)
[2019-08-15] MEDS: AMIODARONE 200 MG TAB PO SCH ×2 (08:47→21:10)
[2019-08-15] MEDS: allopurinoL 300 MG TAB PO SCH (08:47)
[2019-08-15] MEDS: PANTOprazole 40 MG TAB PO SCH ×2 (08:48→21:10)
[2019-08-15] MEDS: allopurinoL 100 MG TAB PO SCH (08:48)
[2019-08-15] MEDS: METOPROLOL SUCC 25MG EXT REL TAB PO SCH ×2 (08:48→21:11)
[2019-08-15] MEDS: INSULIN ASPART 100 UNITS/ML 3 ML PEN SC SCH ×4 (09:30→21:15)
[2019-08-15] MEDS: INSULIN GLARGINE SOLOSTAR 100 UNITS/ML 3 ML PEN SC SCH ×2 (09:31→21:13)
[2019-08-15 11:57] LABS: BUN Creatinine Ratio 16.8 (10-20); Calcium 8.6 mg/dl (8.5-10.1); Est GFR (Non-African American) 50.9; Magnesium 2.3 mg/dl (1.8-2.4); Potassium 4.1 mmol/L (3.5-5.1)
[2019-08-15] MEDS ORDERED: FUROSEMIDE 40 MG in SYRINGE 0 ML IV ONE (14:30)
--- NOTE | 2019-08-15 15:11 | Hospitalist Progress Note ---
Date of Service August 15, 2019 Assessment & Plan (1) SOB (shortness of breath): Acute systolic and diastolic CHF exacerbation CXR:Interval development of mild congestive change. Cardiomegaly and small bilateral pleural effusions persist. H/O ischemic cardiomyopathy with EF of 35% in 2019 S/P AICD-ICD Interrogation completed CTA on 08/13/19: No evidence of pulmonary embolus. Cardiomegaly with findings of a pericardial effusion. Maximum thickness of 1.1 cm. Bilateral pleural effusions with mild consolidative change left lower lobe. Continue Entresto Received 40 of IV Lasix on 08/13/2019 Appreciate Cardiology Input and recommendation Condition got worse overnight and required BiPAP therapy Chest x-ray showed-acute CHF Received 80 of IV Lasix on 08/14/2019 Creatinine remains stable and seems to be improved Will give 40 of IV Lasix today Clinically much better to go for EGD tomorrow Pericardial Effusion Incidental finding on CT--as above Nothing to suggest tamponade Symptomatic anemia Positive fecal occult in the emergency room Hemoglobin dropped from prior admission despite being off Coumadin Received 2 units of blood transfusion BUN mildly elevated, total bilirubin within normal limits Aspirin held Appreciate GI input-planed EGD has been canceled as of 08/14/2019 due to worsening cardiac condition Avoid any anticoagulants Hemoglobin remained stable at more than 8 since blood transfusion Likely to go for EGD and colonoscopy tomorrow Microscopic Hematuria No gross hematuria noted Repeat UA tomorrow Consider Urology Input if needed Stroke like Symptoms/Vertigo DD: Hypoglycemia, ICD problems, complex migraine CT head:No acute intracranial findings. No significant change in appearance of the brain. Carotid Doppler: 50-69% stenosis of the origin/proximal left internal carotid artery. Neurology Consulted -no further recommendation as symptoms are not due to Doppler findings in neck Resume antiplatelet drugs (Consider staring Plavix instead of Aspirin) as able Vs consideration for possible watchman device CKD III Baseline Cr:1.4-1.7 Monitor renal function CAD Aspirin on hold Continue Lipitor, metoprolol, Entresto H/O atrial fibrillation Rate controlled Currently off anticoagulation due to GI bleed issues Continue amiodarone, metoprolol, digoxin Resume anticoagulation as soon as possible Hyperlipidemia on statin DM II Hypoglycemic prior to admission Hb A1C:6.22 Jul 2019 Continue insulin therapy Glycemic pharmacy consult. Hypokalemia Likely due to medications Replete electrolytes as needed ANTOINETTE on CPAP DVT Px: Was on Coumadin SCD RE occult GI/symptomatic anemia Code Status Full code Disposition Expect to discharge home when medically stable Updated the sister on 08/14/2019 Admission and Anticipated Discharge Date Admission Date: August 11, 2019 Subjective The patient was seen and examined in telemetry unit He was noted to be very somnolent this morning that EGD has been canceled He remains very drowsy but always responding to commands Denies any significant pain 08/15/2019 Patient is seen and examined in telemetry unit He remains very stable and much improved as of yesterday He is out of bed on a chair and has been communicating normally Requires less nasal cannula oxygen to maintain saturation Review of Systems Review of Systems: As per HPI, all 10 systems reviewed, all other ROS negative Neurologic: Alert, awake and oriented x3. Communicating normally Physical Exam Physical Exam: Sitting on a chair without any acute distress Constitutional: well developed, well nourished, + ill appearing and + obese; no acute distress Eyes: PERRL, conjunctivae normal, anicteric sclerae ENMT: external ear and nose normal, oropharynx normal Neck: trachea midline, no thyromegaly Respiratory: + respiratory distress (Minimal distress and has been on BiPAP) Auscultation: + diminished lung sounds and + crackles (Bibasilar crackles-i mproved); no wheezes Cardiovascular: Rate/Rhythm: + irregularly irregular Extremities: + edema (1+ bilateral leg edema) Gastrointestinal (Abdomen): Inspection/Auscultation: + abdomen distended Percussion/Palpation: abdomen soft; abdomen nontender Neurologic: moves all extremities and + focal motor deficit Lymphatic: no cervical or axillary lymphadenopathy Results & Data Results & Data ([facility]) Vital Signs (Past 12 Hours) Vital Signs Temp Pulse Pulse Resp BP BP Pulse Ox 08/15/19 11:49 37.0 C 19 125/61 97 08/15/19 08:46 96 08/15/19 08:05 36.5 C 92 H 20 151/76 H 100 08/15/19 07:37 97 H 08/15/19 04:28 37.0 C 89 19 142/90 H 95 08/15/19 03:57 84 22 95 Laboratory Results [facility] 08/15/19 11:22 Sodium 140 Potassium 4.1 Chloride 103 Carbon Dioxide 32 BUN 24 H Creatinine 1.40 Glucose 175 H Calcium 8.6 Medications Administered Current Inpatient Medications Acetaminophen (Tylenol) 650 mg PO Q4H PRN PRN Reason: Pain or Fever Stop: 09/10/19 02:15 Allopurinol (Zyloprim) 300 mg PO QAM [facility] Stop: 09/10/19 08:59 Last Admin: 08/15/19 08:47 Dose: 300 mg Documented by: Allopurinol (Zyloprim) 100 mg PO QAM [facility] Stop: 09/10/19 08:59 Last Admin: 08/15/19 08:48 Dose: 100 mg Documented by: Amiodarone HCl (Cordarone) 200 mg PO BID [facility] Stop: 09/10/19 08:59 Last Admin: 08/15/19 08:47 Dose: 200 mg Documented by: Atorvastatin Calcium (Lipitor) 40 mg PO QPM [facility] Stop: 09/10/19 20:59 Last Admin: 08/14/19 20:09 Dose: 40 mg Documented by: Dextrose (Dextrose 50%) 25 - 50 ml IV UD PRN; Protocol PRN Reason: Hypoglycemia Protocol Stop: 09/10/19 02:15 Digoxin (Lanoxin) 0.125 mg PO Q48H [facility] Stop: 09/10/19 15:59 Last Admin: 08/13/19 16:53 Dose: 0.125 mg Documented by: Glucagon (Glucagen) 1 mg SQ UD PRN; Protocol PRN Reason: Hypoglycemia Protocol Stop: 09/10/19 02:15 Glucose (Dex4 Glucose) 4 - 8 tabs PO UD PRN; Protocol PRN Reason: Hypoglycemia Protocol Stop: 09/10/19 02:15 Glucose (Glucose 40%) 15 - 30 gm PO UD PRN; Protocol PRN Reason: Hypoglycemia Protocol Stop: 09/10/19 02:15 Hydromorphone HCl (Dilaudid) 0.25 mg IV Q3H PRN PRN Reason: Pain Stop: 08/25/19 02:15 Promethazine HCl 12.5 mg/ (Sodium Chloride) 50.5 mls @ 202 mls/hr IV Q6H PRN PRN Reason: Nausea And Vomiting Stop: 09/10/19 02:15 Insulin Aspart (Novolog Flexpen) 0 units SC ACHS [facility] Stop: 09/10/19 02:15 Last Admin: 08/15/19 11:56 Dose: 6 units Documented by: Insulin Glargine (Lantus Solostar Pen) 0 units SC BID [facility]; Protocol Stop: 09/10/19 11:59 Last Admin: 08/15/19 09:31 Dose: Not Given Documented by: Ioversol (Optiray 320 125ml) 119 ml IV ONCE PRN PRN Reason: Interaction Checking Stop: 08/17/19 15:23 Last Admin: 08/13/19 15:25 Dose: 119 ml Documented by: Ipratropium [place] (Atrovent 0.02% 0.5mg/2.5ml) 0.5 mg INH Q4H PRN PRN Reason: Shortness Of Breath Or Wheezing Stop: 09/13/19 03:29 Levalbuterol HCl (Xopenex 1.25mg/0.5ml Neb) 1.25 mg INH Q4H PRN PRN Reason: Shortness Of Breath Or Wheezing Stop: 09/13/19 03:29 Metoprolol Succinate (Toprol Xl) 25 mg PO BID [facility] Stop: 09/10/19 08:59 Last Admin: 08/15/19 08:48 Dose: 25 mg Documented by: Miscellaneous (Carbohydrates For Hypoglycemia) 15 - 30 gm PO UD PRN PRN Reason: Hypoglycemia Protocol Stop: 09/10/19 02:15 Miscellaneous Information (Consult Glycemic Management Pharmacy) 1 ea N/A UD PRN PRN Reason: Consult Stop: 09/10/19 09:40 Nitroglycerin (Nitrostat) 0.4 mg SL UD PRN PRN Reason: Chest Pain Stop: 09/10/19 02:15 Olanzapine (Zyprexa) 2.5 mg IM Q4H PRN PRN Reason: Anxiety/Agitation Stop: 09/13/19 02:25 Last Admin: 08/14/19 02:37 Dose: 2.5 mg Documented by: Pantoprazole Sodium (Protonix) 40 mg PO BID [facility] Stop: 09/10/19 02:15 Last Admin: 08/15/19 08:48 Dose: 40 mg Documented by: Tramadol HCl (Ultram) 25 - 50 mg PO Q6H PRN PRN Reason: Pain Stop: 09/10/19 02:15 Venlafaxine HCl (Effexor Extended Release) 150 mg PO BID [facility] Stop: 09/10/19 08:59 Last Admin: 08/15/19 08:47 Dose: 150 mg Documented by:
[2019-08-15] MEDS: DIGOXIN 0.125 MG TAB PO SCH (16:08)
[2019-08-15] MEDS: ATORVASTATIN 40 MG TAB PO SCH (21:10)
[2019-08-16 07:49] LABS: Creatinine Clr Calc Pharmacy 51.6 ml/min; Est GFR (African American) 49.8
[2019-08-16] MEDS: METOPROLOL SUCC 25MG EXT REL TAB PO SCH ×2 (08:33→20:57)
[2019-08-16] MEDS: allopurinoL 300 MG TAB PO SCH (08:33)
[2019-08-16] MEDS: allopurinoL 100 MG TAB PO SCH (08:33)
[2019-08-16] MEDS: VENLAFAXINE HCL XR 150 MG CAPXR PO SCH ×2 (08:33→20:56)
[2019-08-16] MEDS: PANTOprazole 40 MG TAB PO SCH ×2 (08:33→20:57)
[2019-08-16] MEDS: INSULIN ASPART 100 UNITS/ML 3 ML PEN SC SCH ×4 (08:34→20:59)
[2019-08-16] MEDS: AMIODARONE 200 MG TAB PO SCH ×2 (08:34→20:56)
[2019-08-16] MEDS: INSULIN GLARGINE SOLOSTAR 100 UNITS/ML 3 ML PEN SC SCH (08:39)
--- NOTE | 2019-08-16 09:12 | Communication Note ---
Date of Service: August 16, 2019 Pt followed for anemia. Initially planned for EGD/Colonoscopy evaluation to r/o GI source of bleeding earlier this week cancelled due to hypoxemic episode. He is down to O2 2L per NC today, O2 sat 97%. Denies SOB, CP, abd pain, n/v. He had brown stools yesterday evening and this AM. At this time, given stable anemia and no levi s/s GI bleeding, would recommend continuing to postpone EGD/Colonoscopy evals until his cardiopulmonary status is stabilized. We can help set up these procedures in outpt setting in next few week's time. Discussed this with pt and he is agreeable to plan. The patient unfortunately continues to be a poor candidate for endoscopic evaluation. Once the patient's heart failure has been improved we could certainly try and make arrangements once again for outpatient upper endoscopy and colonoscopy. Please call with any questions or concerns during the major of his hospitalization
[2019-08-16 09:40] LABS: Basophils # (auto) 0.01 K/uL (0-0.2); Basophils % (auto) 0.1 %; Eosinophils # (auto) 0.13 K/uL (0-0.5); Eosinophils % (auto) 1.9 %; Hematocrit (blood only) 28.2 % (42-52); Hemoglobin 8.6 g/dL (14.0-18.0); Immature Granulocytes # (auto) 0.02 K/uL (0.00-0.02); Immature Granulocytes % (auto) 0.3 %; Lymphocytes # (auto) 0.47 K/uL (1.2-3.4); Mean Corpuscular Hemoglobin 30.3 pg (25-34); Mean Corpuscular Hgb Conc 30.5 g/dL (32-36); Mean Corpuscular Volume 99.3 fL (80-100); Mean Platelet Volume 10.2 fL (7.4-10.4); Monocytes # (auto) 1.02 K/uL (0.11-0.59); Monocytes % (auto) 15.2 %; Neutrophils # (auto) 5.08 K/uL (1.4-6.5); Neutrophils % (auto) 75.5 %; Nucleated RBC # (auto) 0.05 K/uL (0-0); Nucleated RBC % (auto) 0.8 %; Platelet Count 239 K/uL (130-400); RDW Coefficient of Variation 18.8 % (11.5-14.5); RDW Standard Deviation 67.4 fL (36.4-46.3); Red Blood Count 2.84 M/uL (4.7-6.1); White Blood Count 6.73 K/uL (4.8-10.8)
--- NOTE | 2019-08-16 11:53 | Cardiology Progress Note ---
Date of Service August 16, 2019 Assessment & Plan (1) Systolic and diastolic CHF, chronic: -patient is approaching euvolemia. -would continue diuresis. -typically takes Bumex 2 mg, 2 tablets q.a.m. with an additional dose when necessary for weight gain. (2) AICD (automatic cardioverter/defibrillator) present: -single-chamber ICD. -proper function at time of interrogation in March. -no defibrillations since February 2019. (3) Atrial fibrillation, chronic: -anticoagulation currently on hold. (4) Ischemic cardiomyopathy: -left ventricular ejection fraction of 25-30% on most recent evaluation. Admission and Anticipated Discharge Date Admission Date: August 11, 2019 Subjective The patient is resting comfortably in the bedside chair without complaints of chest pain or dyspnea. He is anxious for hospital discharge tomorrow. Physical Exam Physical Exam: In general this is a well-developed well-nourished white male in no acute distress. HEENT exam is negative. Neck reveals normal carotid upstrokes without bruits. No JVD. There is no thyromegaly. Cardiovascular exam reveals a regular rhythm with a normal S1 and S2. No murmurs, S3, or S4 are noted. Lungs are clear without rales, rhonchi, or wheezes. Abdomen is soft without bruits. Extremities reveal intact radial artery pulses bilaterally. There is 1+ nonpitting edema of both lower extremities. Diffuse varicosities and hyperpigmentation changes noted. Results & Data ([facility]) Vital Signs (Past 12 Hours) Vital Signs Temp Pulse Pulse Resp BP Pulse Ox 08/16/19 07:45 36.6 C 79 18 131/71 98 08/16/19 07:00 82 08/16/19 02:33 36.9 C 90 19 155/75 H 96 Laboratory Results CBC notes a hemoglobin of 8.6, hematocrit 28.2, white count 6.73, and platelet count of [id number]. Creatinine is 1.61. Diagnostic Findings monitoring and evaluation advisor notes rate control atrial fibrillation. PG Care Time/CCT Total # of Minutes Spent Total Time Spent with Patient: Total time spent is greater than 50% in coordination of care (as documented) at patient's floor/unit and/or counseling patient: Coding Level of Care Code 55666 Subseq Hosp Care Lvl 3 Diagnoses Systolic and diastolic CHF, chronic I50.42 AICD (automatic cardioverter/defibrillator) present Z95.810 Atrial fibrillation, chronic I48.2 Ischemic cardiomyopathy I25.5
--- NOTE | 2019-08-16 13:24 | Pharmacy Report ---
Pharmacy Glycemic Short Note 2 - Date of Service August 16, 2019 - Glycemic Short BSG Results (Last 24 hours): 08/15/19 08/15/19 08/16/19 16:27 20:26 07:56 POC Glucose 138 H 180 H 141 H 08/16/19 11:32 POC Glucose 149 H OUTPATIENT ANTIDIABETIC REGIMEN: * A1c = 6.4% * Lantus 45 units SQ qAM * Novolog SS INPATIENT INSULIN REGIMEN AND CAUSES OF INSULIN RESISTANCE: ASSESSMENT: 08/15 * Patient received 18 units of insulin yesterday, only 5 of this was basal * Appears that estimated basal requirements around 10 units per day 08/13: * Patient was to be NPO after midnight for a scope this AM; however, based on mental status change and limited arousability, procedure was cancelled. Spoke with RN who said patient's mental status has been improving this AM but he remains very sleepy. She will attempt to wake him up to eat lunch. * Patient received 21 units total of insulin yesterday * 10 units basal * 11 units bolus * BSGs ranged 128-155 mg/dL * Fasting BSG this AM was 201 mg/dL, uncontrolled; patient received 15 units of basal insulin for this BSG * Will adjust basal scale this evening to account for amount received this AM and NPO status * Estimating patient requires 10-15 units of basal per day PLAN FOR INPATIENT GLYCEMIC CONTROL: * Basal insulin - adjust to total daily basal dose 10 units * Lantus - additional 5 units with dinner, then 10 units qAM * Bolus insulin - no change * NovoLog per scale ACHS or Q6hrs while NPO * Goal Range: Low 120 mg/dL - High 150 mg/dL * Correction Factor: 25 mg/dL/unit * Nutritional / Prandial insulin per carb ratio of 1 unit per 8 grams CHO consumed PLAN FOR DISCHARGE: * A1c of 6.4% indicates excellent glycemic control * Patient was hypoglycemic on admission (BSG = 45 mg/dL). Based on age and comorbidities, would recommend a goal A1c < 7.5%. Recommend decreasing home Lantus dose by 30% to 30 units QAM. Close follow-up with outpatient provid er/assistant portfolio manager is recommended to discuss current regimen, A1c and hypoglycemia at home.
--- NOTE | 2019-08-16 15:14 | Hospitalist Progress Note ---
Date of Service August 16, 2019 Assessment & Plan (1) SOB (shortness of breath): Acute systolic and diastolic CHF exacerbation CXR:Interval development of mild congestive change. Cardiomegaly and small bilateral pleural effusions persist. H/O ischemic cardiomyopathy with EF of 35% in 2019 S/P AICD-ICD Interrogation completed CTA on 08/13/19: No evidence of pulmonary embolus. Cardiomegaly with findings of a pericardial effusion. Maximum thickness of 1.1 cm. Bilateral pleural effusions with mild consolidative change left lower lobe. Continue Entresto Received 40 of IV Lasix on 08/13/2019 Appreciate Cardiology Input and recommendation Condition got worse overnight and required BiPAP therapy Chest x-ray showed-acute CHF Received 80 of IV Lasix on 08/14/2019 Creatinine remains stable and seems to be improved Will give 40 of IV Lasix today Appreciate cardiology input and recommendation again We will continue with his usual dose of diuretics as an outpatient Likely be discharged tomorrow Pericardial Effusion Incidental finding on CT--as above Nothing to suggest tamponade Symptomatic anemia Positive fecal occult in the emergency room Hemoglobin dropped from prior admission despite being off Coumadin Received 2 units of blood transfusion BUN mildly elevated, total bilirubin within normal limits Aspirin held Appreciate GI input-planed EGD has been canceled as of 08/14/2019 due to worsening cardiac condition Avoid any anticoagulants Hemoglobin remained stable at more than 8 since blood transfusion Hemoglobin remains more than 8 for the last few days Endoscopy has been shifted as an outpatient Microscopic Hematuria No gross hematuria noted Repeat UA tomorrow Consider Urology Input if needed Resolved Stroke like Symptoms/Vertigo DD: Hypoglycemia, ICD problems, complex migraine CT head:No acute intracranial findings. No significant change in appearance of the brain. Carotid Doppler: 50-69% stenosis of the origin/proximal left internal carotid artery. Neurology Consulted -no further recommendation as symptoms are not due to Doppler findings in neck Resume antiplatelet drugs (Consider staring Plavix instead of Aspirin) as able Vs consideration for possible watchman device CKD III Baseline Cr:1.4-1.7 Monitor renal function CAD Aspirin on hold Continue Lipitor, metoprolol, Entresto We will hold aspirin for now H/O atrial fibrillation Rate controlled Currently off anticoagulation due to GI bleed issues Continue amiodarone, metoprolol, digoxin Resume anticoagulation as soon as possible Hyperlipidemia on statin DM II Hypoglycemic prior to admission Hb A1C:6.22 Jul 2019 Continue insulin therapy Glycemic pharmacy consult. Hypokalemia Likely due to medications Replete electrolytes as needed ANTOINETTE on CPAP DVT Px: Was on Coumadin SCD RE occult GI/symptomatic anemia Code Status Full code Disposition Expect to discharge home when medically stable Updated the sister on 08/14/2019 Likely to be discharged tomorrow Admission and Anticipated Discharge Date Admission Date: August 11, 2019 Subjective The patient was seen and examined in telemetry unit He was noted to be very somnolent this morning that EGD has been canceled He remains very drowsy but always responding to commands Denies any significant pain 08/15/2019 Patient is seen and examined in telemetry unit He remains very stable and much improved as of yesterday He is out of bed on a chair and has been communicating normally Requires less nasal cannula oxygen to maintain saturation 08/16/2019 The patient was seen and examined in telemetry unit He has been feeling a lot better and denies any symptoms at rest He will not have EGD during this admission Likely to be discharged tomorrow Review of Systems Review of Systems: All systems reviewed and are unremarkable except as noted below Respiratory: no cough and no dyspnea Cardiovascular: no chest pain Gastrointestinal: no abdominal pain, no nausea and no vomiting Physical Exam Physical Exam: Sitting on a chair without any acute distress Constitutional: well developed, well nourished, + ill appearing and + obese; no acute distress Eyes: PERRL, conjunctivae normal, anicteric sclerae ENMT: external ear and nose normal, oropharynx normal Neck: trachea midline, no thyromegaly Respiratory: no respiratory distress (Minimal distress and has been on BiPAP) Auscultation: + diminished lung sounds and + crackles (Bibasilar crackles- improved); no wheezes Cardiovascular: Rate/Rhythm: + irregularly irregular Extremities: + edema (1+ bilateral leg edema) Gastrointestinal (Abdomen): Inspection/Auscultation: + abdomen distended Percussion/Palpation: abdomen soft; abdomen nontender Neurologic: moves all extremities and + focal motor deficit Lymphatic: no cervical or axillary lymphadenopathy Results & Data Results & Data ([facility]) Vital Signs (Past 12 Hours) Vital Signs Temp Pulse Pulse Resp BP Pulse Ox 08/16/19 11:52 36.3 C L 80 18 123/65 98 08/16/19 07:45 36.6 C 79 18 131/71 98 08/16/19 07:00 82 Laboratory Results Short CBC 08/16/19 Range/Units 06:53 WBC 6.73 (4.8-10.8) K/uL Hgb 8.6 L (14.0-18.0) g/dL Hct 28.2 L (42-52) % Plt Count 239 (130-400) K/uL BMP 08/16/19 06:53 Creatinine 1.61 H Medications Administered Current Inpatient Medications Acetaminophen (Tylenol) 650 mg PO Q4H PRN PRN Reason: Pain or Fever Stop: 09/10/19 02:15 Allopurinol (Zyloprim) 300 mg PO QAM [facility]LEIGH Stop: 09/10/19 08:59 Last Admin: 08/16/19 08:33 Dose: 300 mg Documented by: Allopurinol (Zyloprim) 100 mg PO QAM A[facility]IGH Stop: 09/10/19 08:59 Last Admin: 08/16/19 08:33 Dose: 100 mg Documented by: Amiodarone HCl (Cordarone) 200 mg PO BID [facility] Stop: 09/10/19 08:59 Last Admin: 08/16/19 08:34 Dose: 200 mg Documented by: Atorvastatin Calcium (Lipitor) 40 mg PO QPM A[facility]IGH Stop: 09/10/19 20:59 Last Admin: 08/15/19 21:10 Dose: 40 mg Documented by: Dextrose (Dextrose 50%) 25 - 50 ml IV UD PRN; Protocol PRN Reason: Hypoglycemia Protocol Stop: 09/10/19 02:15 Digoxin (Lanoxin) 0.125 mg PO Q48H [facility] Stop: 09/10/19 15:59 Last Admin: 08/15/19 16:08 Dose: 0.125 mg Documented by: Glucagon (Glucagen) 1 mg SQ UD PRN; Protocol PRN Reason: Hypoglycemia Protocol Stop: 09/10/19 02:15 Glucose (Dex4 Glucose) 4 - 8 tabs PO UD PRN; Protocol PRN Reason: Hypoglycemia Protocol Stop: 09/10/19 02:15 Glucose (Glucose 40%) 15 - 30 gm PO UD PRN; Protocol PRN Reason: Hypoglycemia Protocol Stop: 09/10/19 02:15 Hydromorphone HCl (Dilaudid) 0.25 mg IV Q3H PRN PRN Reason: Pain Stop: 08/25/19 02:15 Promethazine HCl 12.5 mg/ (Sodium Chloride) 50.5 mls @ 202 mls/hr IV Q6H PRN PRN Reason: Nausea And Vomiting Stop: 09/10/19 02:15 Insulin Aspart (Novolog Flexpen) 0 units SC ACHS [facility] Stop: 09/10/19 02:15 Last Admin: 08/16/19 12:02 Dose: Not Given Documented by: Insulin Glargine (Lantus Solostar Pen) 10 units SC QAM [facility]; Protocol Stop: 09/16/19 08:59 Insulin Glargine (Lantus Solostar Pen) 5 units SC QDD [facility]; Protocol Stop: 08/16/19 16:31 Ioversol (Optiray 320 125ml) 119 ml IV ONCE PRN PRN Reason: Interaction Checking Stop: 08/17/19 15:23 Last Admin: 08/13/19 15:25 Dose: 119 ml Documented by: Ipratropium [place] (Atrovent 0.02% 0.5mg/2.5ml) 0.5 mg INH Q4H PRN PRN Reason: Shortness Of Breath Or Wheezing Stop: 09/13/19 03:29 Levalbuterol HCl (Xopenex 1.25mg/0.5ml Neb) 1.25 mg INH Q4H PRN PRN Reason: Shortness Of Breath Or Wheezing Stop: 09/13/19 03:29 Metoprolol Succinate (Toprol Xl) 25 mg PO BID [facility] Stop: 09/10/19 08:59 Last Admin: 08/16/19 08:33 Dose: 25 mg Documented by: Miscellaneous (Carbohydrates For Hypoglycemia) 15 - 30 gm PO UD PRN PRN Reason: Hypoglycemia Protocol Stop: 09/10/19 02:15 Miscellaneous Information (Consult Glycemic Management Pharmacy) 1 ea N/A UD PRN PRN Reason: Consult Stop: 09/10/19 09:40 Nitroglycerin (Nitrostat) 0.4 mg SL UD PRN PRN Reason: Chest Pain Stop: 09/10/19 02:15 Olanzapine (Zyprexa) 2.5 mg IM Q4H PRN PRN Reason: Anxiety/Agitation Stop: 09/13/19 02:25 Last Admin: 08/14/19 02:37 Dose: 2.5 mg Documented by: Pantoprazole Sodium (Protonix) 40 mg PO BID [facility] Stop: 09/10/19 02:15 Last Admin: 08/16/19 08:33 Dose: 40 mg Documented by: Tramadol HCl (Ultram) 25 - 50 mg PO Q6H PRN PRN Reason: Pain Stop: 09/10/19 02:15 Venlafaxine HCl (Effexor Extended Release) 150 mg PO BID [facility] Stop: 09/10/19 08:59 Last Admin: 08/16/19 08:33 Dose: 150 mg Documented by:
[2019-08-16] MEDS ORDERED: BUMETANIDE 1 MG TAB PO ONE (15:17)
[2019-08-16] MEDS ORDERED: INSULIN GLARGINE SOLOSTAR 100 UNITS/ML 3 ML PEN SC SCH (16:30)
[2019-08-16] MEDS: ATORVASTATIN 40 MG TAB PO SCH (20:56)
[2019-08-17] MEDS: INSULIN ASPART 100 UNITS/ML 3 ML PEN SC SCH ×4 (08:32→21:24)
[2019-08-17] MEDS: allopurinoL 300 MG TAB PO SCH (08:34)
[2019-08-17] MEDS: METOPROLOL SUCC 25MG EXT REL TAB PO SCH ×2 (08:34→21:24)
[2019-08-17] MEDS: allopurinoL 100 MG TAB PO SCH (08:34)
[2019-08-17] MEDS: VENLAFAXINE HCL XR 150 MG CAPXR PO SCH ×2 (08:34→21:23)
[2019-08-17] MEDS: PANTOprazole 40 MG TAB PO SCH ×2 (08:35→21:24)
[2019-08-17] MEDS: AMIODARONE 200 MG TAB PO SCH ×2 (08:35→21:22)
[2019-08-17] MEDS: BUMETANIDE 1 MG TAB PO SCH (08:45)
[2019-08-17] MEDS ORDERED: INSULIN GLARGINE SOLOSTAR 100 UNITS/ML 3 ML PEN SC SCH (09:00)
[2019-08-17 09:34] LABS: BUN Creatinine Ratio 21.4 (10-20); Calcium 8.5 mg/dl (8.5-10.1); Creatinine Clr Calc Pharmacy 37.2 ml/min; Est GFR (African American) 33.6; Magnesium 2.4 mg/dl (1.8-2.4)
--- NOTE | 2019-08-17 13:09 | Hospitalist Progress Note ---
Date of Service August 17, 2019 Assessment & Plan (1) SOB (shortness of breath): Acute systolic and diastolic CHF exacerbation CXR:Interval development of mild congestive change. Cardiomegaly and small bilateral pleural effusions persist. H/O ischemic cardiomyopathy with EF of 35% in 2019 S/P AICD-ICD Interrogation completed CTA on 08/13/19: No evidence of pulmonary embolus. Cardiomegaly with findings of a pericardial effusion. Maximum thickness of 1.1 cm. Bilateral pleural effusions with mild consolidative change left lower lobe. Continue Entresto Received 40 of IV Lasix on 08/13/2019 Appreciate Cardiology Input and recommendation Condition got worse overnight and required BiPAP therapy Chest x-ray showed-acute CHF Received 80 of IV Lasix on 08/14/2019 Creatinine remains stable and seems to be improved Will give 40 of IV Lasix today Appreciate cardiology input and recommendation again Clinically worse today with increased desaturation on ambulation during physical therapy He denies any significant symptoms at rest Will restart oral dose of Bumex as an outpatient-monitor PRP Pericardial Effusion Incidental finding on CT--as above Nothing to suggest tamponade Symptomatic anemia Positive fecal occult in the emergency room Hemoglobin dropped from prior admission despite being off Coumadin Received 2 units of blood transfusion BUN mildly elevated, total bilirubin within normal limits Aspirin held Appreciate GI input-planed EGD has been canceled as of 08/14/2019 due to worsening cardiac condition Avoid any anticoagulants Hemoglobin remained stable at more than 8 since blood transfusion Hemoglobin remains more than 8 for the last few days Endoscopy has been shifted as an outpatient Microscopic Hematuria No gross hematuria noted Repeat UA tomorrow Consider Urology Input if needed Resolved Stroke like Symptoms/Vertigo DD: Hypoglycemia, ICD problems, complex migraine CT head:No acute intracranial findings. No significant change in appearance of the brain. Carotid Doppler: 50-69% stenosis of the origin/proximal left internal carotid artery. Neurology Consulted -no further recommendation as symptoms are not due to Doppler findings in neck Resume antiplatelet drugs (Consider staring Plavix instead of Aspirin) as able Vs consideration for possible watchman device CKD III Baseline Cr:1.4-1.7 Monitor renal function CAD Aspirin on hold Continue Lipitor, metoprolol, Entresto We will hold aspirin for now H/O atrial fibrillation Rate controlled Currently off anticoagulation due to GI bleed issues Continue amiodarone, metoprolol, digoxin Resume anticoagulation as soon as possible Will resume anticoagulation from today Hyperlipidemia on statin DM II Hypoglycemic prior to admission Hb A1C:6.22 Jul 2019 Continue insulin therapy Glycemic pharmacy consult. Hypokalemia Likely due to medications Replete electrolytes as needed ANTOINETTE on CPAP DVT Px: Was on Coumadin SCD RE occult GI/symptomatic anemia Code Status Full code Disposition Expect to discharge home when medically stable Updated the sister on 08/14/2019 Tentative discharge on Monday Admission and Anticipated Discharge Date Admission Date: August 11, 2019 Subjective The patient was seen and examined in telemetry unit He was noted to be very somnolent this morning that EGD has been canceled He remains very drowsy but always responding to commands Denies any significant pain 08/15/2019 Patient is seen and examined in telemetry unit He remains very stable and much improved as of yesterday He is out of bed on a chair and has been communicating normally Requires less nasal cannula oxygen to maintain saturation 08/16/2019 The patient was seen and examined in telemetry unit He has been feeling a lot better and denies any symptoms at rest He will not have EGD during this admission Likely to be discharged tomorrow 08/17/2019 The patient was seen and examined in telemetry unit He complains to have no shortness of breath at rest but noted to have shortness of breath with decreased saturation with ambulation during physical therapy He denies any chest pain and/or palpitation He will not be discharged today as planned earlier Review of Systems Review of Systems: All systems reviewed and are unremarkable except as noted below Respiratory: + dyspnea (Minimal dyspnea at rest); no wheezing Neurologic: Alert, awake and oriented x3. Communicating normally Physical Exam Physical Exam: Sitting on a chair without any minimal respiratory distress Constitutional: well developed, well nourished, + ill appearing and + obese; no acute distress Eyes: PERRL, conjunctivae normal, anicteric sclerae ENMT: external ear and nose normal, oropharynx normal Neck: trachea midline, no thyromegaly Respiratory: no respiratory distress (Minimal distress and has been on BiPAP) Auscultation: + diminished lung sounds and + crackles (Bibasilar crackles worse today); no wheezes Cardiovascular: Rate/Rhythm: + irregularly irregular Extremities: + edema (1+ bilateral leg edema) Gastrointestinal (Abdomen): Inspection/Auscultation: + abdomen distended Percussion/Palpation: abdomen soft; abdomen nontender Musculoskeletal: No acute arthritis in any joints Neurologic: moves all extremities and + focal motor deficit Alert, awake and oriented x3 Lymphatic: no cervical or axillary lymphadenopathy Results & Data Results & Data ([facility]) Vital Signs (Past 12 Hours) Vital Signs Temp Pulse Pulse Resp BP BP Pulse Ox 08/17/19 12:02 36.4 C L 76 20 109/72 93 08/17/19 09:50 79 08/17/19 08:05 37 C 88 18 149/54 H 95 08/17/19 04:05 37.0 C 98 H 18 155/76 H 99 Laboratory Results BMP 08/17/19 08:40 Sodium 134 L Potassium 4.0 Chloride 98 Carbon Dioxide 30 BUN 48 H D Creatinine 2.23 H D Glucose 172 H Calcium 8.5 Medications Administered Current Inpatient Medications Acetaminophen (Tylenol) 650 mg PO Q4H PRN PRN Reason: Pain or Fever Stop: 09/10/19 02:15 Allopurinol (Zyloprim) 300 mg PO QAM [facility] Stop: 09/10/19 08:59 Last Admin: 08/17/19 08:34 Dose: 300 mg Documented by: Allopurinol (Zyloprim) 100 mg PO QAM [facility] Stop: 09/10/19 08:59 Last Admin: 08/17/19 08:34 Dose: 100 mg Documented by: Amiodarone HCl (Cordarone) 200 mg PO BID [facility] Stop: 09/10/19 08:59 Last Admin: 08/17/19 08:35 Dose: 200 mg Documented by: Atorvastatin Calcium (Lipitor) 40 mg PO QPM [facility] Stop: 09/10/19 20:59 Last Admin: 08/16/19 20:56 Dose: 40 mg Documented by: Bumetanide (Bumex) 4 mg PO QAM [facility] Stop: 09/16/19 08:59 Last Admin: 08/17/19 08:45 Dose: 4 mg Documented by: Dextrose (Dextrose 50%) 25 - 50 ml IV UD PRN; Protocol PRN Reason: Hypoglycemia Protocol Stop: 09/10/19 02:15 Digoxin (Lanoxin) 0.125 mg PO Q48H [facility] Stop: 09/10/19 15:59 Last Admin: 08/15/19 16:08 Dose: 0.125 mg Documented by: Glucagon (Glucagen) 1 mg SQ UD PRN; Protocol PRN Reason: Hypoglycemia Protocol Stop: 09/10/19 02:15 Glucose (Dex4 Glucose) 4 - 8 tabs PO UD PRN; Protocol PRN Reason: Hypoglycemia Protocol Stop: 09/10/19 02:15 Glucose (Glucose 40%) 15 - 30 gm PO UD PRN; Protocol PRN Reason: Hypoglycemia Protocol Stop: 09/10/19 02:15 Hydromorphone HCl (Dilaudid) 0.25 mg IV Q3H PRN PRN Reason: Pain Stop: 08/25/19 02:15 Promethazine HCl 12.5 mg/ (Sodium Chloride) 50.5 mls @ 202 mls/hr IV Q6H PRN PRN Reason: Nausea And Vomiting Stop: 09/10/19 02:15 Insulin Aspart (Novolog Flexpen) 0 units SC [facility] Stop: 09/10/19 02:15 Last Admin: 08/17/19 11:52 Dose: 5 units Documented by: Insulin Glargine (Lantus Solostar Pen) 10 units SC [facility]; Protocol Stop: 09/16/19 08:59 Last Admin: 08/17/19 08:33 Dose: 10 units Documented by: Ioversol (Optiray 320 125ml) 119 ml IV ONCE PRN PRN Reason: Interaction Checking Stop: 08/17/19 15:23 Last Admin: 08/13/19 15:25 Dose: 119 ml Documented by: Ipratropium [place] (Atrovent 0.02% 0.5mg/2.5ml) 0.5 mg INH Q4H PRN PRN Reason: Shortness Of Breath Or Wheezing Stop: 09/13/19 03:29 Levalbuterol HCl (Xopenex 1.25mg/0.5ml Neb) 1.25 mg INH Q4H PRN PRN Reason: Shortness Of Breath Or Wheezing Stop: 09/13/19 03:29 Metoprolol Succinate (Toprol Xl) 25 mg PO BID [facility] Stop: 09/10/19 08:59 Last Admin: 08/17/19 08:34 Dose: 25 mg Documented by: Miscellaneous (Carbohydrates For Hypoglycemia) 15 - 30 gm PO UD PRN PRN Reason: Hypoglycemia Protocol Stop: 09/10/19 02:15 Miscellaneous Information (Consult Glycemic Management Pharmacy) 1 ea N/A UD PRN PRN Reason: Consult Stop: 09/10/19 09:40 Nitroglycerin (Nitrostat) 0.4 mg SL UD PRN PRN Reason: Chest Pain Stop: 09/10/19 02:15 Olanzapine (Zyprexa) 2.5 mg IM Q4H PRN PRN Reason: Anxiety/Agitation Stop: 09/13/19 02:25 Last Admin: 08/14/19 02:37 Dose: 2.5 mg Documented by: Pantoprazole Sodium (Protonix) 40 mg PO BID [facility] Stop: 09/10/19 02:15 Last Admin: 08/17/19 08:35 Dose: 40 mg Documented by: Tramadol HCl (Ultram) 25 - 50 mg PO Q6H PRN PRN Reason: Pain Stop: 09/10/19 02:15 Venlafaxine HCl (Effexor Extended Release) 150 mg PO BID [facility] Stop: 09/10/19 08:59 Last Admin: 08/17/19 08:34 Dose: 150 mg Documented by:
[2019-08-17] MEDS: WARFARIN SOD 5 MG TAB PO SCH (15:47)
[2019-08-17] MEDS: DIGOXIN 0.125 MG TAB PO SCH (15:48)
[2019-08-17] MEDS: ATORVASTATIN 40 MG TAB PO SCH (21:23)
[2019-08-18] MEDS: INSULIN ASPART 100 UNITS/ML 3 ML PEN SC SCH ×4 (07:58→20:54)
[2019-08-18] MEDS: METOPROLOL SUCC 25MG EXT REL TAB PO SCH ×2 (07:59→20:55)
[2019-08-18] MEDS: allopurinoL 300 MG TAB PO SCH (08:00)
[2019-08-18] MEDS: VENLAFAXINE HCL XR 150 MG CAPXR PO SCH ×2 (08:00→20:54)
[2019-08-18] MEDS: AMIODARONE 200 MG TAB PO SCH ×2 (08:00→20:53)
[2019-08-18] MEDS: BUMETANIDE 1 MG TAB PO SCH (08:00)
[2019-08-18] MEDS: allopurinoL 100 MG TAB PO SCH (08:00)
[2019-08-18] MEDS: PANTOprazole 40 MG TAB PO SCH ×2 (08:00→20:55)
[2019-08-18] MEDS: INSULIN GLARGINE SOLOSTAR 100 UNITS/ML 3 ML PEN SC SCH (08:01)
[2019-08-18 08:51] LABS: BUN Creatinine Ratio 22.3 (10-20); Calcium 8.7 mg/dl (8.5-10.1); Creatinine Clr Calc Pharmacy 31.2 ml/min; Est GFR (African American) 27.2; Est GFR (Non-African American) 23.4; Potassium 4.3 mmol/L (3.5-5.1)
--- NOTE | 2019-08-18 09:33 | Pharmacy Report ---
Glycemic Control Progress Note - Date of Service August 18, 2019 - Scope Glycemic Pharmacist consulted for glycemic control to write orders per [facility] inpatient glycemic control protocol. - Objective Accuchecks BSG(last 24 hours):: 08/17/19 08/17/19 08/17/19 08:40 11:24 16:41 Glucose 172 H POC Glucose 153 H 107 H 08/17/19 08/18/19 08/18/19 20:53 07:17 07:59 Glucose 87 POC Glucose 123 H 97 - Recent Pertinent Medications The patient is currently receiving: * Basal insulin: Lantus 10 units every 24 hours * Correctional Insulin: Novolog Correction per scale ACHS Goal Range: Low 120 mg/dL - High 150 mg/dL Correction Factor: 25 mg/dL/unit * Prandial insulin: Per carb ratio of 1 unit per 7 grams CHO consumed - Outpatient Anti-Diabetic Meds Lantus 45 units qAM + Novolog SS - Assessment & Plan ASSESSMENT: * See progress note from 08/11/2019 for more background info, in short: * Pt receiving SQ basal bolus insulin regimen for hyperglycemia secondary to baseline DM (outpatient regimen on hold). * Patient is currently receiving an average of 19 units of insulin per day * 10 units of basal insulin * 9 units of prandial/correctional insulin * BSGs ranging 107 - 153 mg/dl over the past 24hrs * Changes needed to insulin regimen: * AM Fasting BSG = 97 mg/dl. This is below goal range for patient based on inpatient targets and co-morbidities. Fasting BSG is about 50 points lower than yesterday. Reduce by 1 unit today. (10%) * Post-prandial BSGs are in range but concerned that CR was too aggressive. Loosen back to CR of 8. * Total daily dose = 20 units. PLAN FOR INPATIENT GLYCEMIC CONTROL: * Decreasing Lantus to 9 units SQ qAM * Continuing correction factor of 25 mg/dl/unit * LOOSENING carb ratio to 1 unit per 8 grams CHO consumed * Continuing goal range of Low 110 mg/dL - High 140 mg/dL * Please note that the plan above was derived based on current level of insulin resistance and hospital stress. These recommendations are appropriate for inpatient admission only. Plan of care upon discharge will need to be reassessed to avoid potential outpatient hypo/hyperglycemia. Thank you.
--- NOTE | 2019-08-18 14:15 | Hospitalist Progress Note ---
Date of Service August 18, 2019 Assessment & Plan (1) SOB (shortness of breath): Acute systolic and diastolic CHF exacerbation CXR:Interval development of mild congestive change. Cardiomegaly and small bilateral pleural effusions persist. H/O ischemic cardiomyopathy with EF of 35% in 2019 S/P AICD-ICD Interrogation completed CTA on 08/13/19: No evidence of pulmonary embolus. Cardiomegaly with findings of a pericardial effusion. Maximum thickness of 1.1 cm. Bilateral pleural effusions with mild consolidative change left lower lobe. Continue Entresto Received 40 of IV Lasix on 08/13/2019 Appreciate Cardiology Input and recommendation Condition got worse overnight and required BiPAP therapy Chest x-ray showed-acute CHF Received 80 of IV Lasix on 08/14/2019 Creatinine remains stable and seems to be improved Will give 40 of IV Lasix today Appreciate cardiology input and recommendation again Clinically worse today with increased desaturation on ambulation during physical therapy He denies any significant symptoms at rest Will restart oral dose of Bumex as an outpatient-monitor PRP Remains stable with minimal shortness of breath at rest Bumex 4 mg in the morning daily has been started We will check PRP likely home tomorrow Pericardial Effusion Incidental finding on CT--as above Nothing to suggest tamponade Symptomatic anemia Positive fecal occult in the emergency room Hemoglobin dropped from prior admission despite being off Coumadin Received 2 units of blood transfusion BUN mildly elevated, total bilirubin within normal limits Aspirin held Appreciate GI input-planed EGD has been canceled as of 08/14/2019 due to worsening cardiac condition Avoid any anticoagulants Hemoglobin remained stable at more than 8 since blood transfusion Hemoglobin remains more than 8 for the last few days Endoscopy has been shifted as an outpatient-hemoglobin remains stable in the hospital Microscopic Hematuria No gross hematuria noted Repeat UA tomorrow Consider Urology Input if needed Resolved Stroke like Symptoms/Vertigo DD: Hypoglycemia, ICD problems, complex migraine CT head:No acute intracranial findings. No significant change in appearance of the brain. Carotid Doppler: 50-69% stenosis of the origin/proximal left internal carotid artery. Neurology Consulted -no further recommendation as symptoms are not due to Doppler findings in neck Resume antiplatelet drugs (Consider staring Plavix instead of Aspirin) as able Vs consideration for possible watchman device CKD III Baseline Cr:1.4-1.7 Monitor renal function CAD Aspirin on hold Continue Lipitor, metoprolol, Entresto We will hold aspirin for now H/O atrial fibrillation Rate controlled Currently off anticoagulation due to GI bleed issues Continue amiodarone, metoprolol, digoxin Resume anticoagulation as soon as possible Will resume anticoagulation from today Check INR tomorrow Hyperlipidemia on statin DM II Hypoglycemic prior to admission Hb A1C:6.22 Jul 2019 Continue insulin therapy Glycemic pharmacy consult. Hypokalemia Likely due to medications Replete electrolytes as needed ANTOINETTE on CPAP DVT Px: Was on Coumadin SCD RE occult GI/symptomatic anemia Discussed with the in detail and updated about his current condition He will be discharged home tomorrow in the afternoon Code Status Full code Disposition Expect to discharge home when medically stable Updated the sister on 08/14/2019 Tentative discharge on Monday Admission and Anticipated Discharge Date Admission Date: August 11, 2019 Subjective The patient was seen and examined in telemetry unit He was noted to be very somnolent this morning that EGD has been canceled He remains very drowsy but always responding to commands Denies any significant pain 08/15/2019 Patient is seen and examined in telemetry unit He remains very stable and much improved as of yesterday He is out of bed on a chair and has been communicating normally Requires less nasal cannula oxygen to maintain saturation 08/16/2019 The patient was seen and examined in telemetry unit He has been feeling a lot better and denies any symptoms at rest He will not have EGD during this admission Likely to be discharged tomorrow 08/17/2019 The patient was seen and examined in telemetry unit He complains to have no shortness of breath at rest but noted to have shortness of breath with decreased saturation with ambulation during physical therapy He denies any chest pain and/or palpitation He will not be discharged today as planned earlier 08/18/2019 The patient was seen and examined in telemetry unit He remains minimally short of breath at rest Noted to be confused last night and has not been eating keeping BiPAP and/or CPAP in place Has had 2 steps O2 saturation done and he requires oxygen with ambulation Review of Systems Review of Systems: All systems reviewed and are unremarkable except as noted below Respiratory: + dyspnea (Minimal dyspnea at rest); no wheezing Cardiovascular: + dyspnea and + edema; no chest pain and no palpitations Neurologic: Alert, awake and oriented x3. Communicating normally Physical Exam Physical Exam: Sitting on a chair without any minimal respiratory distress Constitutional: well developed, well nourished, + ill appearing and + obese; no acute distress Eyes: PERRL, conjunctivae normal, anicteric sclerae ENMT: external ear and nose normal, oropharynx normal Neck: trachea midline, no thyromegaly Respiratory: + respiratory distress (Minimal distress at rest) Auscultation: + diminished lung sounds and + crackles (Bibasilar crackles worse today); no wheezes Cardiovascular: Rate/Rhythm: + irregularly irregular Extremities: + edema (1+ bilateral leg edema) Gastrointestinal (Abdomen): Inspection/Auscultation: + abdomen distended Percussion/Palpation: abdomen soft; abdomen nontender Musculoskeletal: No acute arthritis in any joints Neurologic: moves all extremities and + focal motor deficit Lymphatic: no cervical or axillary lymphadenopathy Results & Data Results & Data ([facility]) Vital Signs (Past 12 Hours) Vital Signs Temp Pulse Pulse Resp BP Pulse Ox 08/18/19 12:06 36.7 C 84 20 144/82 H 96 08/18/19 08:02 36.4 C L 85 22 144/84 H 95 08/18/19 07:43 86 08/18/19 04:29 37.0 C 88 22 125/76 93 Laboratory Results [facility] 08/18/19 07:59 Sodium 133 L Potassium 4.3 Chloride 95 L Carbon Dioxide 28 BUN 59 H Creatinine 2.66 H D Glucose 87 Calcium 8.7 Medications Administered Current Inpatient Medications Acetaminophen (Tylenol) 650 mg PO Q4H PRN PRN Reason: Pain or Fever Stop: 09/10/19 02:15 Allopurinol (Zyloprim) 300 mg PO QAM [facility] Stop: 09/10/19 08:59 Last Admin: 08/18/19 08:00 Dose: 300 mg Documented by: Allopurinol (Zyloprim) 100 mg PO QAM [facility] Stop: 09/10/19 08:59 Last Admin: 08/18/19 08:00 Dose: 100 mg Documented by: Amiodarone HCl (Cordarone) 200 mg PO BID [facility] Stop: 09/10/19 08:59 Last Admin: 08/18/19 08:00 Dose: 200 mg Documented by: Atorvastatin Calcium (Lipitor) 40 mg PO QPM [facility] Stop: 09/10/19 20:59 Last Admin: 08/17/19 21:23 Dose: 40 mg Documented by: Bumetanide (Bumex) [facility] [place] Stop: 09/16/19 08:59 Last Admin: 08/18/19 08:00 Dose: 4 mg Documented by: Dextrose (Dextrose 50%) 25 - 50 ml IV UD PRN; Protocol PRN Reason: Hypoglycemia Protocol Stop: 09/10/19 02:15 Digoxin (Lanoxin) 0.125 mg PO Q48H [facility] Stop: 09/10/19 15:59 Last Admin: 08/17/19 15:48 Dose: 0.125 mg Documented by: Glucagon (Glucagen) 1 mg SQ UD PRN; Protocol PRN Reason: Hypoglycemia Protocol Stop: 09/10/19 02:15 Glucose (Dex4 Glucose) 4 - 8 tabs PO UD PRN; Protocol PRN Reason: Hypoglycemia Protocol Stop: 09/10/19 02:15 Glucose (Glucose 40%) 15 - 30 gm PO UD PRN; Protocol PRN Reason: Hypoglycemia Protocol Stop: 09/10/19 02:15 Hydromorphone HCl (Dilaudid) 0.25 mg IV Q3H PRN PRN Reason: Pain Stop: 08/25/19 02:15 Promethazine HCl 12.5 mg/ (Sodium Chloride) 50.5 mls @ 202 mls/hr IV Q6H PRN PRN Reason: Nausea And Vomiting Stop: 09/10/19 02:15 Insulin Aspart (Novolog Flexpen) 0 units SC [facility] Stop: 09/10/19 02:15 Last Admin: 08/18/19 11:57 Dose: 1 units Documented by: Insulin Glargine (Lantus Solostar Pen) 9 units SC [facility]; Protocol Stop: 09/17/19 08:59 Last Admin: 08/18/19 08:01 Dose: 9 units Documented by: Ipratropium [place] (Atrovent 0.02% 0.5mg/2.5ml) 0.5 mg INH Q4H PRN PRN Reason: Shortness Of Breath Or Wheezing Stop: 09/13/19 03:29 Levalbuterol HCl (Xopenex 1.25mg/0.5ml Neb) 1.25 mg INH Q4H PRN PRN Reason: Shortness Of Breath Or Wheezing Stop: 09/13/19 03:29 Metoprolol Succinate (Toprol Xl) 25 mg PO BID [facility] Stop: 09/10/19 08:59 Last Admin: 08/18/19 07:59 Dose: 25 mg Documented by: Miscellaneous (Carbohydrates For Hypoglycemia) 15 - 30 gm PO UD PRN PRN Reason: Hypoglycemia Protocol Stop: 09/10/19 02:15 Miscellaneous Information (Consult Glycemic Management Pharmacy) 1 ea N/A UD PRN PRN Reason: Consult Stop: 09/10/19 09:40 Nitroglycerin (Nitrostat) 0.4 mg SL UD PRN PRN Reason: Chest Pain Stop: 09/10/19 02:15 Olanzapine (Zyprexa) 2.5 mg IM Q4H PRN PRN Reason: Anxiety/Agitation Stop: 09/13/19 02:25 Last Admin: 08/14/19 02:37 Dose: 2.5 mg Documented by: Pantoprazole Sodium (Protonix) 40 mg PO BID [facility] Stop: 09/10/19 02:15 Last Admin: 08/18/19 08:00 Dose: 40 mg Documented by: Tramadol HCl (Ultram) 25 - 50 mg PO Q6H PRN PRN Reason: Pain Stop: 09/10/19 02:15 Venlafaxine HCl (Effexor Extended Release) 150 mg PO BID [facility] Stop: 09/10/19 08:59 Last Admin: 08/18/19 08:00 Dose: 150 mg Documented by: Warfarin Sodium (Coumadin) 5 mg PO DAILY@1600 [facility] Stop: 09/16/19 15:59 Last Admin: 08/17/19 15:47 Dose: 5 mg Documented by:
[2019-08-18] MEDS: WARFARIN SOD 5 MG TAB PO SCH (16:43)
[2019-08-18 20:11] LABS: Allen Test POS (Pos); Base Excess ABG 1.3 mEq/L (-9-1.8); HCO3 ABG 26 mmol/L (19-24); Oxygen Saturation ABG 95.1 % (90-95); PCO2 ABG 43 mmHg (35-46); PO2 ABG 81 mmHg (80-95)
[2019-08-18 20:26] LABS: BUN Creatinine Ratio 22.7 (10-20); Calcium 7.8 mg/dl (8.5-10.1); Creatinine Clr Calc Pharmacy 28.7 ml/min; Est GFR (African American) 24.6; Est GFR (Non-African American) 21.2; Magnesium 2.2 mg/dl (1.8-2.4); Potassium 4.2 mmol/L (3.5-5.1)
[2019-08-18 20:34] LABS: Eosinophils # (auto) 0.05 K/uL (0-0.5); Eosinophils % (auto) 0.5 %; Hematocrit (blood only) 27.1 % (42-52); Hemoglobin 8.4 g/dL (14.0-18.0); Immature Granulocytes # (auto) 0.02 K/uL (0.00-0.02); Immature Granulocytes % (auto) 0.2 %; Lymphocytes # (auto) 0.64 K/uL (1.2-3.4); Lymphocytes % (auto) 6.4 %; Mean Corpuscular Hemoglobin 29.3 pg (25-34); Mean Corpuscular Volume 94.4 fL (80-100); Mean Platelet Volume 10.4 fL (7.4-10.4); Monocytes # (auto) 1.41 K/uL (0.11-0.59); Monocytes % (auto) 14.1 %; Neutrophils # (auto) 7.87 K/uL (1.4-6.5); Neutrophils % (auto) 78.8 %; Platelet Count 257 K/uL (130-400); RDW Coefficient of Variation 18.1 % (11.5-14.5); RDW Standard Deviation 61.1 fL (36.4-46.3); Red Blood Count 2.87 M/uL (4.7-6.1); White Blood Count 9.99 K/uL (4.8-10.8)
[2019-08-18 20:41] LABS: Albumin Globulin Ratio 0.9 (0.9-2); Globulin 3.4 gm/dl (2.5-4.0); Phosphorus 6.4 mg/dl (2.5-4.9); Total Protein 6.4 gm/dl (6.4-8.2); Troponin I 0.061 ng/ml (0-0.045)
[2019-08-18] MEDS: ATORVASTATIN 40 MG TAB PO SCH (20:54)
[2019-08-18] MEDS ORDERED: QUETIAPINE FUMARATE 25 MG TABLET PO STA (21:07)
[2019-08-18] MEDS ORDERED: DEXTROSE 5% IV ONE (21:15)
[2019-08-18] MEDS ORDERED: ACETYLCYSTEINE IV ONE (21:15)
[2019-08-18] MEDS ORDERED: DEXTROSE 5% IV SCH (22:45)
[2019-08-18] MEDS ORDERED: ACETYLCYSTEINE IV SCH (22:45)
[2019-08-19] MEDS ORDERED: LORazepam 0.5 MG/1 ML VIAL IV STA (00:02)
[2019-08-19] MEDS ORDERED: LORazepam 0.25 MG/0.5 ML VIAL IV STA (00:08)
[2019-08-19] MEDS ORDERED: LORazepam 2 MG/4 ML VIAL ONE (00:12)
[2019-08-19] MEDS ORDERED: DEXTROSE 5% IV SCH (03:00)
[2019-08-19] MEDS ORDERED: ACETYLCYSTEINE IV SCH (03:00)
[2019-08-19 06:51] LABS: Eosinophils # (auto) 0.01 K/uL (0-0.5); Eosinophils % (auto) 0.1 %; Hematocrit (blood only) 25.8 % (42-52); Immature Granulocytes # (auto) 0.01 K/uL (0.00-0.02); Immature Granulocytes % (auto) 0.1 %; Lymphocytes # (auto) 0.51 K/uL (1.2-3.4); Lymphocytes % (auto) 6.4 %; Mean Corpuscular Hemoglobin 29.2 pg (25-34); Mean Corpuscular Volume 94.2 fL (80-100); Mean Platelet Volume 9.9 fL (7.4-10.4); Monocytes # (auto) 0.95 K/uL (0.11-0.59); Neutrophils # (auto) 6.45 K/uL (1.4-6.5); Neutrophils % (auto) 81.4 %; Platelet Count 207 K/uL (130-400); RDW Standard Deviation 61.8 fL (36.4-46.3); Red Blood Count 2.74 M/uL (4.7-6.1); White Blood Count 7.93 K/uL (4.8-10.8)
[2019-08-19 07:18] LABS: INR 2.3 (0.9-1.1); Prothrombin Time 23.1 Seconds (9.0-12.0)
[2019-08-19 07:25] LABS: Albumin Level 2.7 gm/dl (3.4-5.0); Bilirubin Direct 0.7 mg/dl (0-0.2); Creatinine Clr Calc Pharmacy 30.4 ml/min; Est GFR (African American) 26.1; Est GFR (Non-African American) 22.5; Magnesium 2.3 mg/dl (1.8-2.4); Potassium 3.8 mmol/L (3.5-5.1)
[2019-08-19 07:31] LABS: Total Protein 5.9 gm/dl (6.4-8.2)
--- NOTE | 2019-08-19 07:31 | CT Scan Report ---
ABDOMEN AND PELVIS CT WITHOUT CONTRAST CT DOSE: 1762.98 mGy.cm HISTORY: Mid abdominal pain. elevated ast/alt acute. TECHNIQUE: Multiaxial CT images of the abdomen and pelvis were performed without contrast. A dose lo wering technique was utilized adhering to the principles of ALARA. COMPARISON STUDY: Abdomen and pelvis CT 08/05/2019. FINDINGS: The heart remains enlarged. There is a moderate pericardial effusion, unchanged. Pacemaker wire is noted. Small bilateral pleural effusions have increased in size. Nonspecific consolidation wi thin the lower lobes. This favors compressive atelectasis from the pleural effusions. No pneumoperito neum. No pneumatosis. Gas within the bladder lumen which could be due to recent catheterization. No s uspicious lytic or blastic osseous lesions. Bilateral gynecomastia. The unenhanced liver, spleen, adr enal glands, and pancreas are within normal limits. There is a 1.6 cm gallstone and a small amount of gallbladder sludge. No definite gallbladder wall thickening. Mild bilateral perinephric edema and mi ld body wall edema. Mild bladder wall thickening, unchanged. Suboptimal evaluation for bowel patholog y due to the lack of intravenous and oral contrast. However, there is no definite bowel wall thickeni ng or obstruction. Colonic diverticulosis. No evidence for diverticulitis. Evidence for prior right h emicolectomy. Therefore, the appendix is surgically absent. No retroperitoneal or pelvic lymphadenopa thy. Mild calcified plaque within the normal caliber abdominal aorta. No hydronephrosis. IMPRESSION: 1. Cardiomegaly with a moderate pericardial effusion which is similar to the prior study. 2. Increase in size in a small bilateral pleural effusions. Bilateral lower lobe consolidation is non specific but favors atelectasis. A pneumonia could also have a similar appearance. 3. Cholelithiasis. No definite gallbladder wall thickening. 4. No hydronephrosis. 5. Small amount of gas within the bladder which may be due to recent catheterization versus cystitis. 6. No definite bowel wall thickening or obstruction. ACT 112: Negative or not required by law. Electronically signed by: Jeramy Esquivel M.D. 08/19/2019 7:29 AM
[2019-08-19] MEDS: BUMETANIDE 1 MG TAB PO SCH (08:24)
[2019-08-19] MEDS: VENLAFAXINE HCL XR 150 MG CAPXR PO SCH ×2 (08:24→21:27)
[2019-08-19] MEDS: METOPROLOL SUCC 25MG EXT REL TAB PO SCH ×2 (08:24→21:28)
[2019-08-19] MEDS: allopurinoL 300 MG TAB PO SCH (08:24)
[2019-08-19] MEDS: AMIODARONE 200 MG TAB PO SCH ×2 (08:24→21:27)
[2019-08-19] MEDS: INSULIN GLARGINE SOLOSTAR 100 UNITS/ML 3 ML PEN SC SCH (08:25)
[2019-08-19] MEDS: allopurinoL 100 MG TAB PO SCH (08:25)
[2019-08-19] MEDS: PANTOprazole 40 MG TAB PO SCH ×2 (08:25→21:28)
[2019-08-19] MEDS: INSULIN ASPART 100 UNITS/ML 3 ML PEN SC SCH ×4 (08:26→21:30)
--- NOTE | 2019-08-19 10:10 | Ultrasound Report ---
US abdomen limited HISTORY: Pain abd pain, please be assess CBD for stone/sludge. COMPARISON: None. FINDINGS: Pancreas: Poorly seen due to overlying bowel content Liver: Fatty infiltration Gallbladder: 1.2 cm gallstone in the region of the gallbladder neck. Mildly thickened gallbladder wal l at 4 mm. CBD: 5 mm Right kidney: No hydronephrosis. IMPRESSION: 1. Gallstone in the region of the gallbladder neck 2. Mild gallbladder wall thickening of 4 mm. 3. Normal caliber bile ducts. ACT 112: Negative or not required by law. The above report was generated using voice recognition software. It may contain grammatical, syntax or spelling errors. Electronically signed by: Delmer Woodward M.D. 08/19/2019 10:08 AM
--- NOTE | 2019-08-19 11:25 | Gastrointestinal Consultation ---
Date of Consultation August 19, 2019 History of Present Illness Attending Physician: Fausto Reynoso MD History of Present Illness Pt is a 69 y/o male seen for symptomatic anemia, also found to have hematuria on eval. Planned for EGD/Colonoscopy eval today to r/o GI source of bleeding (last Colonoscopy in 2019 w findings of adenomatous polyps). However this AM reports acute SOB while using bathroom. His bowel prep wasn't finished (had 1/4 left of Golytely) and he is still passing chunks of stools. Will cancel EGD/Colonoscopy until SOB evaluated and resolved. Primary hospitalist (Dr. Horvath) notified and will f/u on CXR results, and discuss further w Cardiology. We will continue pt on CL diet for now and re-eval today/tomorrow to determine timing of EGD/Colonoscopy evals Allergies Allergy/AdvReac Type Severity Reaction Status Date / Time Penicillins Allergy Mild childhood Verified 08/10/19 23:04 reaction codeine AdvReac Mild NAUSEA, Verified 08/10/19 23:04 LIGHTHEADEDNESS simvastatin AdvReac Mild makes him Verified 08/10/19 23:04 feel like he is high Home Medications Home Medications Medication Instructions Recorded Confirmed Type aspirin 81 mg PO QAM 01/25/18 08/10/19 History atorvastatin 40 mg PO QPM 01/25/18 08/10/19 History allopurinol 100 mg PO QAM 09/11/18 08/10/19 History allopurinol 300 mg PO QAM 09/26/18 08/10/19 History insulin glargine 100 unit/mL (3 45 units SUBCUT QAM ml 12/17/18 08/10/19 History mL) subcutaneous pen metoprolol succinate 100 mg PO BID 01/21/19 08/10/19 History nitroglycerin 0.4 mg SUBLINGUAL UD PRN 01/21/19 08/10/19 History venlafaxine 150 mg PO BID 01/21/19 08/10/19 History insulin aspart U-100 100 unit/mL 0 units SQ ACHS ml 01/30/19 08/10/19 History (3 mL) subcutaneous pen meclizine 12.5 mg tablet 12.5 mg PO TID PRN 01/30/19 08/10/19 History sacubitril 97 mg-valsartan 103 mg 1 tab PO BID 90 Days #180 tab 01/30/19 08/10/19 Rx tablet bumetanide 4 mg PO QAM 02/27/19 08/10/19 History potassium chloride 10 meq PO BID 02/27/19 08/10/19 History digoxin 125 mcg (0.125 mg) tablet 125 mcg PO Q2D #45 tab 03/19/19 08/11/19 Rx amiodarone 200 mg tablet 200 mg PO BID #180 tab 05/16/19 08/10/19 Rx lorazepam 0.5 mg tablet 0.5 mg PO DAILY PRN #30 tab 07/25/19 08/10/19 Rx bumetanide 2 mg PO .DAILY@LUNCH PRN 08/05/19 08/10/19 History cholecalciferol (vitamin D3) 125 mcg PO 2XWK 08/05/19 08/10/19 History tramadol 50 mg PO Q6H PRN 08/05/19 08/10/19 History pantoprazole [Protonix] 40 mg PO BID #60 tab 08/07/19 08/10/19 Rx Patient History Medical History Anxiety (Inactive) Atrial fibrillation, chronic (Chronic) CAD (coronary artery disease) (Chronic) stenting to LAD in 1994 and 1996 stenting to RCA and LAD in 2007 CKD (chronic kidney disease) (Acute) Congestive heart failure (Resolved) Depression with anxiety (Chronic) Diabetes mellitus type II, controlled (Chronic) Diabetic neuropathy (Chronic) Dyslipidemia (Chronic) Gout HTN (hypertension) (Chronic) Ischemic dilated cardiomyopathy (Inactive) meterman current use of anticoagulant (Chronic) warfarin daily Myocardial Infarction (Resolved) 1989. CARDIAC CATH WITH 2 STENTS ANTOINETTE on CPAP (Chronic) Systolic and diastolic CHF, chronic (Chronic) Surgical History AICD (automatic cardioverter/defibrillator) present (Chronic) placed on 10/24/17 [employer] DEV[employer]. LAST CHECKED [address] DOMINGUEZ/[facility] OFF[facility]. PLACED IN OCTOBER 2017 AT [facility] History of bowel resection (Resolved) MASSIVE POLPYS History of cardiac cath (Inactive) 1989 --> X2 STENTS. BARE METAL STENTS ~1992 --> X2 STENTS. DRUG ELUTING STENTS. History of cataract surgery (Resolved) BILATERAL History of colonoscopy (Inactive) History of heart artery stent (Resolved) History of partial colectomy (Resolved) "[facility]/ ilieorectal anast/ multiple polyps 2008" Stented coronary artery (Inactive) "stents x 4 to RCA and LAD 1997" Family History Mother Coronary heart disease Diabetes Father Lung cancer Sister Diabetes Social History Preferred Language: Icelandic Communication Ability: Effective Underwriter Mortgage Loan Required: No Beliefs That Will Affect Care: None marital status: Current Living Situation: Spouse Other Information That Helps Us Care for You: No Feels Safe at Home: Yes Safety Concerns: Feels Safe At This Time Smoking Status: Never smoker Second Hand Exposure: No ; Hx Alcohol Use: No Hx Substance Use: No Results & Data ([facility]) Vital Signs (Past 12 Hours) Vital Signs Temp Pulse Pulse Resp BP Pulse Ox 08/19/19 08:00 71 08/19/19 07:23 36.3 C L 77 22 123/80 94 08/19/19 03:44 36.5 C 70 20 106/58 L 95
--- NOTE | 2019-08-19 11:30 | Gastroenterology Progress Note ---
Date of Service August 19, 2019 Assessment & Plan (1) Gallstones with biliary obstruction: 69 y/o male with abd pain and acutely elevated LFTs in an obstructive pattern with US noting a 1.2 cm gallstone in the GB neck, worrisome for biliary obstruction, (less likely ischemic or congestive hepatopathy). - Will plan for EUS/ERCP tomorrow - Hold Coumadin - Vit K 10 mg IV now as IN is 2.3. Repeat INR in the AM. - Can stop NAC - Start empiric IV Cipro/Flagyl (renally dose) - Analgesia, antiemetics PRN - NPO after midnight - IV hydration as permitted with CHF - Consult general surgery - Consult cardiology for pre-op assessment Thank you for allowing us to participate in the care of this patient. Please call with any acute changes, questions or concerns. Please see addendum below with additional recommendation from my supervising physician. (2) Elevated LFTs: Admission and Anticipated Discharge Date Admission Date: August 11, 2019 Supervising Physician Co-Signing Physician Notes I performed a history and physical examination of the patient today, including specifically on physical exam - soft abdomen. I have discussed the patient's management with the advanced practitioner. Please refer to the nurse practitioner's note for the documented findings and plan of care. Sudden onset abdominal pain with elevation in LFTs, ALT/AST and bili, concerning for CBD obstruction in view of large size gallstone on imaging. He is euvolemic and optimized from cardiac standpoint and had EGD/colonoscopy few days ago and I think he would tolerate EUS/ERCP tomorrow. Will attempt GB stenting as well due to concern for cholecystitis. Continue ABx. He is not a surgical candidate for cholecystectomy hence I will plan for LAMS using an Axios stent as OP if he clinically improves. Subjective 69 y/o male T2DM, CAD, ICM, s/p AICD, afib on coumadin seen by GI last week for symptomatic anemia, with endoscopy deferred as pt's respiratory status was not optimized and he had a poor prep for colonoscopy. Pt re-seen today for acutely elevated LFTs. Tbili noted to be elevated starting around 08/05, now incr'd to 2, ALP started increasing on 08/13, and transaminases acutely elevated yesterday to the 1,000's where they remain today. HGB stable at 8, BUN/cr both elevated. NAC tx was initiated. CTAP noted cholelithiasis, but did not comment on CBD, but noted US ABD ordered stat this AM noted a 1.2 cm gallstone noted in the GB neck with mild GB thickening, CBD 5 mm. Pt noted to be very somnolent today and falls asleep very frequently making ROS limited; he is arousable to voice and follows commands, then falls back asleep; speech is fluent. His nurse is in the room at the time and helps with history. Per staff he took 1 bite of his breakfast but was falling asleep so he had nothing further to eat. He was reported to have hallucinations earlier this admission and was noted to be "chewing on his call vargas" this AM. He notes some moderate intermittent upper abd pain feeling like "a punch in the gut;" no dark urine or arora stools, no n/v/d, no melena, hematochezia. He remains on O2 and has an intermittent cough; denies CP. Review of Systems Constitutional: no fever and no chills Respiratory: as per Subjective / HPI and + cough; no dyspnea Cardiovascular: no chest pain and no edema Gastrointestinal: as per Subjective / HPI Integumentary: no rash no jaundice Hematologic / Lymphatic: no easy bleeding and no easy bruising Physical Exam Constitutional: well developed and well nourished chronically ill Eyes: + anicteric sclerae Respiratory: normal respiratory effort occasional b/l crackles Cardiovascular: Rate/Rhythm: regular rate and regular rhythm Gastrointestinal (Abdomen): soft, moderate generalized tenderness, nondistended, normoactive BS Skin: no rashes, warm and dry no jaundice Psychiatric: Orientation: alert Answered correctly to place, month, year Results & Data ([facility]) Vital Signs (Past 12 Hours) Vital Signs Temp Pulse Pulse Resp BP Pulse Ox 08/19/19 08:00 71 08/19/19 07:23 36.3 C L 77 22 123/80 94 08/19/19 03:44 36.5 C 70 20 106/58 L 95 Laboratory Results 08/19/19 08/19/19 08/19/19 Range/Units 11:19 10:21 07:38 WBC (4.8-10.8) K/uL RBC (4.7-6.1) M/uL Hgb (14.0-18.0) g/dL Hct (42-52) % MCV (80-100) fL MCH (25-34) pg MCHC (32-36) g/dL RDW Std Deviation (36.4-46.3) fL RDW Coeff of Joe (11.5-14.5) % Plt Count (130-400) K/uL MPV (7.4-10.4) fL Immature Gran % (Auto) % Neut % (Auto) % Lymph % (Auto) % [place] % (Auto) % Eos % (Auto) % Baso % (Auto) % Immature Gran # (Auto) (0.00-0.02) K/uL Neut # (Auto) (1.4-6.5) K/uL Lymph # (Auto) (1.2-3.4) K/uL [place] # (Auto) (0.11-0.59) K/uL Eos # (Auto) (0-0.5) K/uL Baso # (Auto) (0-0.2) K/uL Absolute Nucleated RBC (0-0) K/uL Nucleated RBC % (auto) % PT (9.0-12.0) Seconds INR (0.9-1.1) ABG pH (7.35-7.45) ABG pCO2 (35-46) mmHg ABG pO2 (80-95) mmHg ABG HCO3 (19-24) mmol/L ABG O2 Saturation (90-95) % ABG Base Excess (-9-1.8) mEq/L Pito Test (Pos) Barometric Pressure mm/Hg Oxygen Given Sodium (136-145) mmol/L Potassium (3.5-5.1) mmol/L Chloride (98-107) mmol/L Carbon Dioxide (21-32) mmol/L Anion Gap (3-11) BUN (7-18) mg/dl Creatinine (0.6-1.4) mg/dl Est Cr Clr Drug Dosing ml/min Est GFR ( Amer) Est GFR (Non-Af Amer) BUN/Creatinine Ratio (10-20) Glucose (70-99) mg/dl POC Glucose 171 H (70-99) mg/dl Lactate 2.3 H* 3.6 H* (0.4-2.0) mmol/L Calcium (8.5-10.1) mg/dl Phosphorus (2.5-4.9) mg/dl Magnesium (1.8-2.4) mg/dl Total Bilirubin (0.2-1) mg/dl Direct Bilirubin (0-0.2) mg/dl AST (15-37) U/L ALT (12-78) U/L Alkaline Phosphatase (45-117) U/L Ammonia (11-32) umol/L Troponin I (0-0.045) ng/ml Total Protein (6.4-8.2) gm/dl Albumin (3.4-5.0) gm/dl Globulin (2.5-4.0) gm/dl Albumin/Globulin Ratio (0.9-2) 08/19/19 08/19/19 08/19/19 Range/Units 07:22 06:27 06:27 WBC 7.93 (4.8-10.8) K/uL RBC 2.74 L (4.7-6.1) M/uL Hgb 8.0 L (14.0-18.0) g/dL Hct 25.8 L (42-52) % MCV 94.2 (80-100) fL MCH 29.2 (25-34) pg MCHC 31.0 L (32-36) g/dL RDW Std Deviation 61.8 H (36.4-46.3) fL RDW Coeff of Joe 18.0 H (11.5-14.5) % Plt Count 207 (130-400) K/uL MPV 9.9 (7.4-10.4) fL Immature Gran % (Auto) 0.1 % Neut % (Auto) 81.4 % Lymph % (Auto) 6.4 % [place] % (Auto) 12.0 % Eos % (Auto) 0.1 % Baso % (Auto) 0.0 % Immature Gran # (Auto) 0.01 (0.00-0.02) K/uL Neut # (Auto) 6.45 (1.4-6.5) K/uL Lymph # (Auto) 0.51 L (1.2-3.4) K/uL [place] # (Auto) 0.95 H (0.11-0.59) K/uL Eos # (Auto) 0.01 (0-0.5) K/uL Baso # (Auto) 0.00 (0-0.2) K/uL Absolute Nucleated RBC (0-0) K/uL Nucleated RBC % (auto) % PT 23.1 H (9.0-12.0) Seconds INR 2.3 H (0.9-1.1) ABG pH (7.35-7.45) ABG pCO2 (35-46) mmHg ABG pO2 (80-95) mmHg ABG HCO3 (19-24) mmol/L ABG O2 Saturation (90-95) % ABG Base Excess (-9-1.8) mEq/L Pito Test (Pos) Barometric Pressure mm/Hg Oxygen Given Sodium (136-145) mmol/L Potassium (3.5-5.1) mmol/L Chloride (98-107) mmol/L Carbon Dioxide (21-32) mmol/L Anion Gap (3-11) BUN (7-18) mg/dl Creatinine (0.6-1.4) mg/dl Est Cr Clr Drug Dosing ml/min Est GFR ( Amer) Est GFR (Non-Af Amer) BUN/Creatinine Ratio (10-20) Glucose (70-99) mg/dl POC Glucose 170 H (70-99) mg/dl Lactate (0.4-2.0) mmol/L Calcium (8.5-10.1) mg/dl Phosphorus (2.5-4.9) mg/dl Magnesium (1.8-2.4) mg/dl Total Bilirubin (0.2-1) mg/dl Direct Bilirubin (0-0.2) mg/dl AST (15-37) U/L ALT (12-78) U/L Alkaline Phosphatase (45-117) U/L Ammonia (11-32) umol/L Troponin I (0-0.045) ng/ml Total Protein (6.4-8.2) gm/dl Albumin (3.4-5.0) gm/dl Globulin (2.5-4.0) gm/dl Albumin/Globulin Ratio (0.9-2) 08/19/19 08/18/19 08/18/19 Range/Units 06:27 20:10 19:58 WBC (4.8-10.8) K/uL RBC (4.7-6.1) M/uL Hgb (14.0-18.0) g/dL Hct (42-52) % MCV (80-100) fL MCH (25-34) pg MCHC (32-36) g/dL RDW Std Deviation (36.4-46.3) fL RDW Coeff of Joe (11.5-14.5) % Plt Count (130-400) K/uL MPV (7.4-10.4) fL Immature Gran % (Auto) % Neut % (Auto) % Lymph % (Auto) % [place] % (Auto) % Eos % (Auto) % Baso % (Auto) % Immature Gran # (Auto) (0.00-0.02) K/uL Neut # (Auto) (1.4-6.5) K/uL Lymph # (Auto) (1.2-3.4) K/uL [place] # (Auto) (0.11-0.59) K/uL Eos # (Auto) (0-0.5) K/uL Baso # (Auto) (0-0.2) K/uL Absolute Nucleated RBC (0-0) K/uL Nucleated RBC % (auto) % PT (9.0-12.0) Seconds INR (0.9-1.1) ABG pH (7.35-7.45) ABG pCO2 (35-46) mmHg ABG pO2 (80-95) mmHg ABG HCO3 (19-24) mmol/L ABG O2 Saturation (90-95) % ABG Base Excess (-9-1.8) mEq/L Pito Test (Pos) Barometric Pressure mm/Hg Oxygen Given Sodium 134 L (136-145) mmol/L Potassium 3.8 (3.5-5.1) mmol/L Chloride 92 L (98-107) mmol/L Carbon Dioxide 25 (21-32) mmol/L Anion Gap 17.0 H (3-11) BUN 74 H (7-18) mg/dl Creatinine 2.75 H (0.6-1.4) mg/dl Est Cr Clr Drug Dosing 30.4 ml/min Est GFR ( Amer) 26.1 Est GFR (Non-Af Amer) 22.5 BUN/Creatinine Ratio 27.0 H (10-20) Glucose 138 H (70-99) mg/dl POC Glucose 107 H (70-99) mg/dl Lactate 2.8 H* (0.4-2.0) mmol/L Calcium 8.0 L (8.5-10.1) mg/dl Phosphorus (2.5-4.9) mg/dl Magnesium 2.3 (1.8-2.4) mg/dl Total Bilirubin 2.0 H (0.2-1) mg/dl Direct Bilirubin 0.7 H (0-0.2) mg/dl AST 1295 H (15-37) U/L ALT 1091 H (12-78) U/L Alkaline Phosphatase 131 H (45-117) U/L Ammonia (11-32) umol/L Troponin I (0-0.045) ng/ml Total Protein 5.9 L (6.4-8.2) gm/dl Albumin 2.7 L (3.4-5.0) gm/dl Globulin (2.5-4.0) gm/dl Albumin/Globulin Ratio (0.9-2) 08/18/19 08/18/19 08/18/19 Range/Units 19:58 19:58 19:58 WBC (4.8-10.8) K/uL RBC (4.7-6.1) M/uL Hgb (14.0-18.0) g/dL Hct (42-52) % MCV (80-100) fL MCH (25-34) pg MCHC (32-36) g/dL RDW Std Deviation (36.4-46.3) fL RDW Coeff of Joe (11.5-14.5) % Plt Count (130-400) K/uL MPV (7.4-10.4) fL Immature Gran % (Auto) % Neut % (Auto) % Lymph % (Auto) % [place] % (Auto) % Eos % (Auto) % Baso % (Auto) % Immature Gran # (Auto) (0.00-0.02) K/uL Neut # (Auto) (1.4-6.5) K/uL Lymph # (Auto) (1.2-3.4) K/uL [place] # (Auto) (0.11-0.59) K/uL Eos # (Auto) (0-0.5) K/uL Baso # (Auto) (0-0.2) K/uL Absolute Nucleated RBC (0-0) K/uL Nucleated RBC % (auto) % PT (9.0-12.0) Seconds INR (0.9-1.1) ABG pH 7.40 (7.35-7.45) ABG pCO2 43 (35-46) mmHg ABG pO2 81 (80-95) mmHg ABG HCO3 26 H (19-24) mmol/L ABG O2 Saturation 95.1 H (90-95) % ABG Base Excess 1.3 (-9-1.8) mEq/L Pito Test POS (Pos) Barometric Pressure 735.9 mm/Hg Oxygen Given O2 FLOW RATE 3 Sodium 134 L (136-145) mmol/L Potassium 4.2 (3.5-5.1) mmol/L Chloride 96 L (98-107) mmol/L Carbon Dioxide 25 (21-32) mmol/L Anion Gap 13.0 H (3-11) BUN 66 H (7-18) mg/dl Creatinine 2.89 H (0.6-1.4) mg/dl Est Cr Clr Drug Dosing 28.7 ml/min Est GFR ( Amer) 24.6 Est GFR (Non-Af Amer) 21.2 BUN/Creatinine Ratio 22.7 H (10-20) Glucose 95 (70-99) mg/dl POC Glucose (70-99) mg/dl Lactate (0.4-2.0) mmol/L Calcium 7.8 L (8.5-10.1) mg/dl Phosphorus 6.4 H (2.5-4.9) mg/dl Magnesium 2.2 (1.8-2.4) mg/dl Total Bilirubin 2.0 H (0.2-1) mg/dl Direct Bilirubin (0-0.2) mg/dl AST 1633 H (15-37) U/L ALT 1095 H (12-78) U/L Alkaline Phosphatase 129 H (45-117) U/L Ammonia 36.7 H (11-32) umol/L Troponin I 0.061 H* (0-0.045) ng/ml Total Protein 6.4 (6.4-8.2) gm/dl Albumin 3.0 L (3.4-5.0) gm/dl Globulin 3.4 (2.5-4.0) gm/dl Albumin/Globulin Ratio 0.9 (0.9-2) 08/18/19 08/18/19 Range/Units 19:58 16:34 WBC 9.99 (4.8-10.8) K/uL RBC 2.87 L (4.7-6.1) M/uL Hgb 8.4 L (14.0-18.0) g/dL Hct 27.1 L (42-52) % MCV 94.4 (80-100) fL MCH 29.3 (25-34) pg MCHC 31.0 L (32-36) g/dL RDW Std Deviation 61.1 H (36.4-46.3) fL RDW Coeff of Joe 18.1 H (11.5-14.5) % Plt Count 257 (130-400) K/uL MPV 10.4 (7.4-10.4) fL Immature Gran % (Auto) 0.2 % Neut % (Auto) 78.8 % Lymph % (Auto) 6.4 % [place] % (Auto) 14.1 % Eos % (Auto) 0.5 % Baso % (Auto) 0.0 % Immature Gran # (Auto) 0.02 (0.00-0.02) K/uL Neut # (Auto) 7.87 H (1.4-6.5) K/uL Lymph # (Auto) 0.64 L (1.2-3.4) K/uL [place] # (Auto) 1.41 H (0.11-0.59) K/uL Eos # (Auto) 0.05 (0-0.5) K/uL Baso # (Auto) 0.00 (0-0.2) K/uL Absolute Nucleated RBC 0.10 H (0-0) K/uL Nucleated RBC % (auto) 1.0 % PT (9.0-12.0) Seconds INR (0.9-1.1) ABG pH (7.35-7.45) ABG pCO2 (35-46) mmHg ABG pO2 (80-95) mmHg ABG HCO3 (19-24) mmol/L ABG O2 Saturation (90-95) % ABG Base Excess (-9-1.8) mEq/L Pito Test (Pos) Barometric Pressure mm/Hg Oxygen Given Sodium (136-145) mmol/L Potassium (3.5-5.1) mmol/L Chloride (98-107) mmol/L Carbon Dioxide (21-32) mmol/L Anion Gap (3-11) BUN (7-18) mg/dl Creatinine (0.6-1.4) mg/dl Est Cr Clr Drug Dosing ml/min Est GFR ( Amer) Est GFR (Non-Af Amer) BUN/Creatinine Ratio (10-20) Glucose (70-99) mg/dl POC Glucose 117 H (70-99) mg/dl Lactate (0.4-2.0) mmol/L Calcium (8.5-10.1) mg/dl Phosphorus (2.5-4.9) mg/dl Magnesium (1.8-2.4) mg/dl Total Bilirubin (0.2-1) mg/dl Direct Bilirubin (0-0.2) mg/dl AST (15-37) U/L ALT (12-78) U/L Alkaline Phosphatase (45-117) U/L Ammonia (11-32) umol/L Troponin I (0-0.045) ng/ml Total Protein (6.4-8.2) gm/dl Albumin (3.4-5.0) gm/dl Globulin (2.5-4.0) gm/dl Albumin/Globulin Ratio (0.9-2)
[2019-08-19] MEDS ORDERED: PHYTONADIONE 10 MG in SODIUM CHLORIDE 0.9% 50 ML IV ONE (12:20)
[2019-08-19] MEDS: metroNIDAZOLE 500 MG/100 ML BAG IV SCH ×2 (13:19→21:28)
--- NOTE | 2019-08-19 13:45 | Hospitalist Progress Note ---
Date of Service August 19, 2019 Assessment & Plan (1) Gallstones with biliary obstruction: Has been having fluctuating confusion mostly at previous 2 nights Noted to have abdominal pain last night and was found to have very high transaminitis Ultrasound showed gallstones with biliary obstructions Appreciate GI input and recommendation Will have EUS tomorrow (2) SOB (shortness of breath): Acute systolic and diastolic CHF exacerbation CXR:Interval development of mild congestive change. Cardiomegaly and small bilateral pleural effusions persist. H/O ischemic cardiomyopathy with EF of 35% in 2019 S/P AICD-ICD Interrogation completed CTA on 08/13/19: No evidence of pulmonary embolus. Cardiomegaly with findings of a pericardial effusion. Maximum thickness of 1.1 cm. Bilateral pleural effusions with mild consolidative change left lower lobe. Continue Entresto Received 40 of IV Lasix on 08/13/2019 Appreciate Cardiology Input and recommendation Condition got worse overnight and required BiPAP therapy Chest x-ray showed-acute CHF Received 80 of IV Lasix on 08/14/2019 Creatinine remains stable and seems to be improved Will give 40 of IV Lasix today Appreciate cardiology input and recommendation again Clinically worse today with increased desaturation on ambulation during physical therapy He denies any significant symptoms at rest Will restart oral dose of Bumex as an outpatient-monitor PRP Remains stable with minimal shortness of breath at rest Bumex 4 mg in the morning daily has been started We will continue Bumex on discharge Pericardial Effusion Incidental finding on CT--as above Nothing to suggest tamponade Symptomatic anemia Positive fecal occult in the emergency room Hemoglobin dropped from prior admission despite being off Coumadin Received 2 units of blood transfusion BUN mildly elevated, total bilirubin within normal limits Aspirin held Appreciate GI input-planed EGD has been canceled as of 08/14/2019 due to worsening cardiac condition Avoid any anticoagulants Hemoglobin remained stable at more than 8 since blood transfusion Hemoglobin remains more than 8 for the last few days Endoscopy has been shifted as an outpatient-hemoglobin remains stable in the hospital Microscopic Hematuria No gross hematuria noted Repeat UA tomorrow Consider Urology Input if needed Resolved Stroke like Symptoms/Vertigo DD: Hypoglycemia, ICD problems, complex migraine CT head:No acute intracranial findings. No significant change in appearance of the brain. Carotid Doppler: 50-69% stenosis of the origin/proximal left internal carotid artery. Neurology Consulted -no further recommendation as symptoms are not due to Doppler findings in neck Resume antiplatelet drugs (Consider staring Plavix instead of Aspirin) as able Vs consideration for possible watchman device CKD III Baseline Cr:1.4-1.7 Monitor renal function CAD Aspirin on hold Continue Lipitor, metoprolol, Entresto We will hold aspirin for now H/O atrial fibrillation Rate controlled Currently off anticoagulation due to GI bleed issues Continue amiodarone, metoprolol, digoxin Resume anticoagulation as soon as possible Will resume anticoagulation from today Check INR tomorrow Hyperlipidemia on statin DM II Hypoglycemic prior to admission Hb A1C:6.22 Jul 2019 Continue insulin therapy Glycemic pharmacy consult. Hypokalemia Likely due to medications Replete electrolytes as needed ANTOINETTE on CPAP DVT Px: Was on Coumadin SCD RE occult GI/symptomatic anemia Discussed with the in detail and updated about his current condition Will discuss with his Code Status Full code Disposition Expect to discharge home when medically stable Updated the sister on 08/14/2019 Tentative discharge on Monday Admission and Anticipated Discharge Date Admission Date: August 11, 2019 Subjective The patient was seen and examined in telemetry unit He was noted to be very somnolent this morning that EGD has been canceled He remains very drowsy but always responding to commands Denies any significant pain 08/15/2019 Patient is seen and examined in telemetry unit He remains very stable and much improved as of yesterday He is out of bed on a chair and has been communicating normally Requires less nasal cannula oxygen to maintain saturation 08/16/2019 The patient was seen and examined in telemetry unit He has been feeling a lot better and denies any symptoms at rest He will not have EGD during this admission Likely to be discharged tomorrow 08/17/2019 The patient was seen and examined in telemetry unit He complains to have no shortness of breath at rest but noted to have shortness of breath with decreased saturation with ambulation during physical therapy He denies any chest pain and/or palpitation He will not be discharged today as planned earlier 08/18/2019 The patient was seen and examined in telemetry unit He remains minimally short of breath at rest Noted to be confused last night and has not been eating keeping BiPAP and/or CPAP in place Has had 2 steps O2 saturation done and he requires oxygen with ambulation 08/19/2019 The patient was seen and examined in telemetry unit He was very confused yesterday with right upper quadrant abdominal pain Noted to have highly elevated transaminases He was drowsy this morning but could manage to complicate with me during my examination Review of Systems Review of Systems: All systems reviewed and are unremarkable except as noted below Respiratory: + dyspnea (Minimal dyspnea at rest); no wheezing Cardiovascular: + dyspnea and + edema; no chest pain and no palpitations Neurologic: Drowsy and moderately short of breath and trying to communicate Physical Exam Physical Exam: Sitting on a chair with moderate shortness of breath at rest and sleepy with drowsiness Constitutional: well developed, well nourished, + ill appearing and + obese; no acute distress Eyes: PERRL, conjunctivae normal, anicteric sclerae ENMT: external ear and nose normal, oropharynx normal Neck: trachea midline, no thyromegaly Respiratory: + respiratory distress (Minimal distress at rest) Auscultation: + diminished lung sounds and + crackles (Bibasilar crackles worse today); no wheezes Cardiovascular: Rate/Rhythm: regular rate, regular rhythm and + irregularly irregular Extremities: + edema (1+ bilateral leg edema) Gastrointestinal (Abdomen): Inspection/Auscultation: + abdomen distended Percussion/Palpation: abdomen soft; abdomen nontender Musculoskeletal: Denies any acute arthralgias involving any joints Neurologic: moves all extremities and + focal motor deficit Very lethargic and sleepy Lymphatic: no cervical or axillary lymphadenopathy Results & Data Results & Data ([facility]) Vital Signs (Past 12 Hours) Vital Signs Temp Pulse Pulse Resp BP Pulse Ox 08/19/19 12:45 68 16 146/66 H 98 08/19/19 11:11 36.4 C L 76 22 138/79 99 08/19/19 08:00 71 08/19/19 07:23 36.3 C L 77 22 123/80 94 08/19/19 03:44 36.5 C 70 20 106/58 L 95 Laboratory Results Short CBC 08/18/19 08/19/19 Range/Units 19:58 06:27 WBC 9.99 7.93 (4.8-10.8) K/uL Hgb 8.4 L 8.0 L (14.0-18.0) g/dL Hct 27.1 L 25.8 L (42-52) % Plt Count 257 207 (130-400) K/uL BMP 08/18/19 08/19/19 19:58 06:27 Sodium 134 L 134 L Potassium 4.2 3.8 Chloride 96 L 92 L Carbon Dioxide 25 25 BUN 66 H 74 H Creatinine 2.89 H 2.75 H Glucose 95 138 H Calcium 7.8 L 8.0 L Cardiac Enzymes 08/18/19 Range/Units 19:58 Troponin I 0.061 H* (0-0.045) ng/ml Liver Function 08/18/19 08/19/19 Range/Units 19:58 06:27 Total Bilirubin 2.0 H 2.0 H (0.2-1) mg/dl Direct Bilirubin 0.7 H (0-0.2) mg/dl AST 1633 H 1295 H (15-37) U/L ALT 1095 H 1091 H (12-78) U/L Alkaline Phosphatase 129 H 131 H (45-117) U/L Albumin 3.0 L 2.7 L (3.4-5.0) gm/dl Medications Administered Current Inpatient Medications Allopurinol (Zyloprim) 300 mg PO QAM [facility] [place] Stop: 09/10/19 08:59 Last Admin: 08/19/19 08:24 Dose: 300 mg Documented by: Allopurinol (Zyloprim) 100 mg PO QAM [facility] [place] Stop: 09/10/19 08:59 Last Admin: 08/19/19 08:25 Dose: 100 mg Documented by: Amiodarone HCl (Cordarone) 200 mg PO BID [facility] Stop: 09/10/19 08:59 Last Admin: 08/19/19 08:24 Dose: 200 mg Documented by: Bumetanide (Bumex) 4 mg PO QAM [facility] [place] Stop: 09/16/19 08:59 Last Admin: 08/19/19 08:24 Dose: 4 mg Documented by: Dextrose (Dextrose 50%) 25 - 50 ml IV UD PRN; Protocol PRN Reason: Hypoglycemia Protocol Stop: 09/10/19 02:15 Digoxin (Lanoxin) 0.125 mg PO Q48H [facility] Stop: 09/10/19 15:59 Last Admin: 08/17/19 15:48 Dose: 0.125 mg Documented by: Glucagon (Glucagen) 1 mg SQ UD PRN; Protocol PRN Reason: Hypoglycemia Protocol Stop: 09/10/19 02:15 Glucose (Dex4 Glucose) 4 - 8 tabs PO UD PRN; Protocol PRN Reason: Hypoglycemia Protocol Stop: 09/10/19 02:15 Glucose (Glucose 40%) 15 - 30 gm PO UD PRN; Protocol PRN Reason: Hypoglycemia Protocol Stop: 09/10/19 02:15 Hydromorphone HCl (Dilaudid) 0.25 mg IV Q3H PRN PRN Reason: Pain Stop: 08/25/19 02:15 Promethazine HCl 12.5 mg/ (Sodium Chloride) 50.5 mls @ 202 mls/hr IV Q6H PRN PRN Reason: Nausea And Vomiting Stop: 09/10/19 02:15 Metronidazole (Flagyl) 500 mg in 100 mls @ 100 mls/hr IV Q8H [facility] [place] Stop: 08/29/19 12:59 Last Admin: 08/19/19 13:19 Dose: 100 mls/hr Documented by: Ciprofloxacin Lactate (Cipro / D5w) 200 mg in 100 mls @ 100 mls/hr IV Q12 [facility] [place]; Protocol Stop: 08/29/19 20:59 Insulin Aspart (Novolog Flexpen) 0 units SC ACHS [facility] Stop: 09/10/19 02:15 Last Admin: 08/19/19 12:58 Dose: 1 units Documented by: Insulin Glargine (Lantus Solostar Pen) 9 units SC [facility]; Protocol Stop: 09/17/19 08:59 Last Admin: 08/19/19 08:25 Dose: 9 units Documented by: Ipratropium [place] (Atrovent 0.02% 0.5mg/2.5ml) 0.5 mg INH Q4H PRN PRN Reason: Shortness Of Breath Or Wheezing Stop: 09/13/19 03:29 Levalbuterol HCl (Xopenex 1.25mg/0.5ml Neb) 1.25 mg INH Q4H PRN PRN Reason: Shortness Of Breath Or Wheezing Stop: 09/13/19 03:29 Metoprolol Succinate (Toprol Xl) 25 mg PO BID [facility] [place] Stop: 09/10/19 08:59 Last Admin: 08/19/19 08:24 Dose: 25 mg Documented by: Miscellaneous (Carbohydrates For Hypoglycemia) 15 - 30 gm PO UD PRN PRN Reason: Hypoglycemia Protocol Stop: 09/10/19 02:15 Miscellaneous Information (Consult Glycemic Management Pharmacy) 1 ea N/A UD PRN PRN Reason: Consult Stop: 09/10/19 09:40 Nitroglycerin (Nitrostat) 0.4 mg SL UD PRN PRN Reason: Chest Pain Stop: 09/10/19 02:15 Pantoprazole Sodium (Protonix) 40 mg PO BID [facility] [place] Stop: 09/10/19 02:15 Last Admin: 08/19/19 08:25 Dose: 40 mg Documented by: Tramadol HCl (Ultram) 25 - 50 mg PO Q6H PRN PRN Reason: Pain Stop: 09/10/19 02:15 Venlafaxine HCl (Effexor Extended Release) 150 mg PO BID [facility] [place] Stop: 09/10/19 08:59 Last Admin: 08/19/19 08:24 Dose: 150 mg Documented by: Warfarin Sodium (Coumadin) 5 mg PO DAILY@1600 [facility] [place] Stop: 09/16/19 15:59 Last Admin: 08/18/19 16:43 Dose: 5 mg Documented by:
--- NOTE | 2019-08-19 13:50 | Surgery Consultation ---
Date of Consultation August 19, 2019 Assessment & Plan (1) Elevated LFTs: This is a 69y M with multiple medical issues including CHF (EF 25-30%) per cardiology note, AICD, Afib on coumadin, DM2, ANTOINETTE and history of partial colectomy who presents to the [facility] ED on 08/10 with SOB and weakness. During his hospitalization patient was noted to have elevated LFT's and concern for stone in GB neck of which we were consulted for. Today labs show WBC: 7.9, Tbili: 2, Db: 0.7, AST: 1295, ALT: 1091, AlkP: 131. Imaging with a CT a/p revealed + gallstones and RUQ showed gallstone in GB neck with mild gallbladder wall thickening and normal bile ducts. On examination patient is extremely drowsy and history is limited. He is mildly ttp in the epigastric and RUQ regions. Patient has a host of medical issues that precluded him from undergoing upper and lower scopes for anemia this admission. He will likely not tolerate anesthesia, therefore we do not think patient should undergo lap derik here. He should be transferred to a tertiary center for a percutaneous cholecystectomy tube. Dr. Llanes do not think the patient is a surgical candidate in this hospital. He is currently short of breath and lethargic with significant pleural effusions and a pericardial effusion. History of congestive heart failure with ejection fraction of 35%, and atrial fibrillation on anticoagulant-current pro time 23 with an INR of 2.3 I believe a cholecystostomy tube would be the best treatment in this situation for his gallbladder disease the present time I will discuss this with Dr. Reynoso and also the GI team It is likely that he would need to be transferred to a tertiary care center History of Present Illness Attending Physician: Fausto Reynoso MD History of Present Illness This is a 69y M with multiple medical issues including CHF (EF 25-30%) per cardiology note, AICD, Afib on coumadin, DM2, ANTOINETTE and history of partial colectomy who presents to the [facility] ED on 08/10 with SOB and weakness. Patient was admitted to medicine and GI consulted for upper and lower scopes due to concern for symptomatic anemia. Patient however developed hypoxia and procedures cancelled. Scopes were postpones as patient's hbg remained stable and there were no signs of active bleeding. Yesterday patient was noted to have increased LFTs prompting further workup. CT a/p performed revealed + stones without definitive gb wall thickening. A RUQ US performed today showed gallstone in the region of the gallbladder neck, mild gallbladder wall thickening of 4 mm, and normal caliber bile ducts. Surgery was consulted for further evaluation. Upon interview with the patient he is very drowsy, arousable only for short periods of time. Per patient he states he has been dealing with abdominal pain over the past week, which is new for him. He denies any nausea/vomiting, fevers, chills, or change in bowel habits. He points to his epigastric and right upper quadrant areas when asked where his pain is. Allergies Allergy/AdvReac Type Severity Reaction Status Date / Time Penicillins Allergy Mild childhood Verified 08/10/19 23:04 reaction codeine AdvReac Mild NAUSEA, Verified 08/10/19 23:04 LIGHTHEADEDNESS simvastatin AdvReac Mild makes him Verified 08/10/19 23:04 feel like he is high Home Medications Home Medications Medication Instructions Recorded Confirmed Type aspirin 81 mg PO QAM 01/25/18 08/10/19 History atorvastatin 40 mg PO QPM 01/25/18 08/10/19 History allopurinol 100 mg PO QAM 09/11/18 08/10/19 History allopurinol 300 mg PO QAM 09/26/18 08/10/19 History insulin glargine 100 unit/mL (3 45 units SUBCUT QAM ml 12/17/18 08/10/19 History mL) subcutaneous pen metoprolol succinate 100 mg PO BID 01/21/19 08/10/19 History nitroglycerin 0.4 mg SUBLINGUAL UD PRN 01/21/19 08/10/19 History venlafaxine 150 mg PO BID 01/21/19 08/10/19 History insulin aspart U-100 100 unit/mL 0 units SQ ACHS ml 01/30/19 08/10/19 History (3 mL) subcutaneous pen meclizine 12.5 mg tablet 12.5 mg PO TID PRN 01/30/19 08/10/19 History sacubitril 97 mg-valsartan 103 mg 1 tab PO BID 90 Days #180 tab 01/30/19 08/10/19 Rx tablet bumetanide 4 mg PO QAM 02/27/19 08/10/19 History potassium chloride 10 meq PO BID 02/27/19 08/10/19 History digoxin 125 mcg (0.125 mg) tablet 125 mcg PO Q2D #45 tab 03/19/19 08/11/19 Rx amiodarone 200 mg tablet 200 mg PO BID #180 tab 05/16/19 08/10/19 Rx lorazepam 0.5 mg tablet 0.5 mg PO DAILY PRN #30 tab 07/25/19 08/10/19 Rx bumetanide 2 mg PO .DAILY@LUNCH PRN 08/05/19 08/10/19 History cholecalciferol (vitamin D3) 125 mcg PO 2XWK 08/05/19 08/10/19 History tramadol 50 mg PO Q6H PRN 08/05/19 08/10/19 History pantoprazole [Protonix] 40 mg PO BID #60 tab 08/07/19 08/10/19 Rx Patient History Medical History Anxiety (Inactive) Atrial fibrillation, chronic (Chronic) CAD (coronary artery disease) (Chronic) stenting to LAD in 1994 and 1996 stenting to RCA and LAD in 2007 CKD (chronic kidney disease) (Acute) Congestive heart failure (Resolved) Depression with anxiety (Chronic) Diabetes mellitus type II, controlled (Chronic) Diabetic neuropathy (Chronic) Dyslipidemia (Chronic) Gout HTN (hypertension) (Chronic) Ischemic dilated cardiomyopathy (Inactive) residential current use of anticoagulant (Chronic) warfarin daily Myocardial Infarction (Resolved) 1989. CARDIAC CATH WITH 2 STENTS ANTOINETTE on CPAP (Chronic) Systolic and diastolic CHF, chronic (Chronic) Surgical History AICD (automatic cardioverter/defibrillator) present (Chronic) placed on 10/24/17 [employer] DEVICE. LAST CHECKED [address] DOMINGUEZ/[facility]. PLACED IN OCTOBER 2017 AT [facility] History of bowel resection (Resolved) MASSIVE POLPYS History of cardiac cath (Inactive) 1989 --> X2 STENTS. BARE METAL STENTS ~1992 --> X2 STENTS. DRUG ELUTING STENTS. 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 Beliefs That Will Affect Care: None marital status: Current Living Situation: Spouse Other Information That Helps Us Care for You: No Feels Safe at Home: Yes Safety Concerns: Feels Safe At This Time Smoking Status: Never smoker Second Hand Exposure: No ; Hx Alcohol Use: No Hx Substance Use: No Review of Systems Constitutional: no fever and no chills Cardiovascular: no chest pain Gastrointestinal: + abdominal pain (epigastric and RUQ region) and + bloating; no nausea, no vomiting and no change in bowel habits Physical Exam Physical Exam: drowsy, can arouse for short periods at a time then falls back asleep Gastrointestinal (Abdomen): Inspection/Auscultation: + abdomen distended (mild) Percussion/Palpation: + abdomen tender (mild ttp in epigastric region and RUQ ) and abdomen soft Results & Data Vital Signs (Past 12 Hours) Vital Signs Temp Pulse Pulse Resp BP Pulse Ox 08/19/19 12:45 68 16 146/66 H 98 08/19/19 11:11 36.4 C L 76 22 138/79 99 08/19/19 08:00 71 08/19/19 07:23 36.3 C L 77 22 123/80 94 08/19/19 03:44 36.5 C 70 20 106/58 L [address] WITHOUT CONTRAST CT DOSE: 1762.98 mGy.cm HISTORY: Mid abdominal pain. elevated ast/alt acute. TECHNIQUE: Multiaxial CT images of the abdomen and pelvis were performed without contrast. A dose lowering technique was utilized adhering to the principles of ALARA. COMPARISON STUDY: Abdomen and pelvis CT 08/05/2019. FINDINGS: The heart remains enlarged. There is a moderate pericardial effusion, unchanged. Pacemaker wire is noted. Small bilateral pleural effusions have increased in size. Nonspecific consolidation within the lower lobes. This favors compressive atelectasis from the pleural effusions. No pneumoperitoneum. No pneumatosis. Gas within the bladder lumen which could be due to recent catheterization. No suspicious lytic or blastic osseous lesions. Bilateral gynecomastia. The unenhanced liver, spleen, adrenal glands, and pancreas are within normal limits. There is a 1.6 cm gallstone and a small amount of gallbladder sludge. No definite gallbladder wall thickening. Mild bilateral perinephric edema and mild body wall edema. Mild bladder wall thickening, unchanged. Suboptimal evaluation for bowel pathology due to the lack of intravenous and oral contrast. However, there is no definite bowel wall thickening or obstruction. Colonic diverticulosis. No evidence for diverticulitis. Evidence for prior right hemicolectomy. Therefore, the appendix is surgically absent. No retroperitoneal or pelvic lymphadenopathy. Mild calcified plaque within the normal caliber abdominal aorta. No hydronephrosis. IMPRESSION: 1. Cardiomegaly with a moderate pericardial effusion which is similar to the prior study. 2. Increase in size in a small bilateral pleural effusions. Bilateral lower lobe consolidation is nonspecific but favors atelectasis. A pneumonia could also have a similar appearance. 3. Cholelithiasis. No definite gallbladder wall thickening. 4. No hydronephrosis. 5. Small amount of gas within the bladder which may be due to recent catheterization versus cystitis. 6. No definite bowel wall thickening or obstruction. ACT 112: Negative or not required by law. Electronically signed by: Jeramy Esquivel M.D. 08/19/2019 7:29 AM US abdomen limited HISTORY: Pain abd pain, please be assess CBD for stone/sludge. COMPARISON: None. FINDINGS: Pancreas: Poorly seen due to overlying bowel content Liver: Fatty infiltration Gallbladder: 1.2 cm gallstone in the region of the gallbladder neck. Mildly thickened gallbladder wall at 4 mm. CBD: 5 mm Right kidney: No hydronephrosis. IMPRESSION: 1. Gallstone in the region of the gallbladder neck 2. Mild gallbladder wall thickening of 4 mm. 3. Normal caliber bile ducts. ACT 112: Negative or not required by law. The above report was generated using voice recognition software. It may contain grammatical, syntax or spelling errors. Electronically signed by: Delmer Woodward M.D. 08/19/2019 10:08 AM PG Care Time/CCT Total # of Minutes Spent Total Time Spent with Patient: Total time spent is greater than 50% in coordination of care (as documented) at patient's floor/unit and/or counseling patient: Coding Level of Care Code 37522 Initial Inpt Care Lvl 1 Diagnoses Elevated LFTs R79.89
--- NOTE | 2019-08-19 15:51 | Communication Note ---
Date of Service: August 19, 2019 Noted to have gallstones with biliary obstruction with extremely high levels of transaminases No definite evidence of acute cholecystitis on CAT scan or in ultrasound Appreciate GI input and recommendation and will have EUS tomorrow that is 08/20/2019 and he does not have any acute cholecystitis at this time. Appreciate surgery input and recommendation-recommended that patient should be transferred to tertiary care center for possible cholecystectomy tube/cholecystectomy Discussed with care specialist Dr. Vargas-as long as he remains euvolemic no additional recommendation for the proposed procedure. He carries more than usual risk with associated comorbid conditions Discussed in detail with and explained about the EUS procedure tomorrow and possible cholecystectomy/cholecystostomy tube placement for gallbladder problem. The is agreeable with that EUS procedure tomorrow. Dr. Renuka Reynoso
--- NOTE | 2019-08-19 16:33 | XRay Report ---
XR chest 1V portable CLINICAL HISTORY: CHF dyspnea COMPARISON STUDY: 08/14/2019 FINDINGS: Cardiomegaly. Diminished pulmonary vasculature. Small left pleural effusion. Permanent unip olar cardiac pacemaker/defibrillator. IMPRESSION: 1. Improving congestive failure. 2. Stable/slightly progressive cardiomegaly. 3. Unchanged left pleural effusion. ACT 112: Negative or not required by law. The above report was generated using voice recognition software. It may contain grammatical, syntax or spelling errors. Electronically signed by: Delmer Woodward M.D. 08/19/2019 4:31 PM
[2019-08-19] MEDS: DIGOXIN 0.125 MG TAB PO SCH (17:12)
--- NOTE | 2019-08-19 19:24 | Anesthesiology Consultation ---
Date of Service August 19, 2019 Assessment & Plan Chart Review Chart Review: Acceptable Risk for Surgery (Pt seen,chart reviewed. Pt high risk for anesthesia given chronic resp insufficiency. Intervention indicated due to biliary obstruction and pt aware of risk. Management to be determined by attending anesthesiologist assigned to case) Consults Requested none History Surgery Operation Date: 08/14/19 16:00 Proposed Procedures p Colonoscopy EGD Dr Medina - Dorothy Medina Operation Date: 08/20/19 10:30 Proposed Procedures p Endoscopic Ultrasonography Upper - Angela Duncan MD s Endoscopic Retrograde Cholangiopancreatogram - Angela Duncan MD Height/Weight Height: 5 ft 7 in Weight: 113 kg Allergies Allergy/AdvReac Type Severity Reaction Status Date / Time Penicillins Allergy Mild childhood Verified 08/10/19 23:04 reaction codeine AdvReac Mild NAUSEA, Verified 08/10/19 23:04 LIGHTHEADEDNESS simvastatin AdvReac Mild makes him Verified 08/10/19 23:04 feel like he is high Medications Home Medications Medication Instructions Recorded Confirmed Last Taken aspirin 81 mg PO QAM 01/25/18 08/10/19 08/10/19 atorvastatin 40 mg PO QPM 01/25/18 08/10/19 08/10/19 allopurinol 100 mg PO QAM 09/11/18 08/10/19 08/10/19 allopurinol 300 mg PO QAM 09/26/18 08/10/19 08/10/19 insulin glargine 100 unit/mL (3 45 units SUBCUT QAM ml 12/17/18 08/10/19 08/10/19 mL) subcutaneous pen metoprolol succinate 100 mg PO BID 01/21/19 08/10/19 08/10/19 nitroglycerin 0.4 mg SUBLINGUAL UD PRN 01/21/19 08/10/19 Unknown venlafaxine 150 mg PO BID 01/21/19 08/10/19 08/10/19 insulin aspart U-100 100 unit/mL 0 units SQ ACHS ml 01/30/19 08/10/19 08/10/19 17:00 (3 mL) subcutaneous pen meclizine 12.5 mg tablet 12.5 mg PO TID PRN 01/30/19 08/10/19 08/05/19 09:00 sacubitril 97 mg-valsartan 103 mg 1 tab PO BID 90 Days #180 tab 01/30/19 08/10/19 08/10/19 tablet bumetanide 4 mg PO QAM 02/27/19 08/10/19 08/10/19 potassium chloride 10 meq PO BID 02/27/19 08/10/19 08/10/19 digoxin 125 mcg (0.125 mg) tablet 125 mcg PO Q2D #45 tab 03/19/19 08/11/19 0 08/09/19 amiodarone 200 mg tablet 200 mg PO BID #180 tab 05/16/19 08/10/19 08/10/19 lorazepam 0.5 mg tablet 0.5 mg PO DAILY PRN #30 tab 07/25/19 08/10/19 Unknown bumetanide 2 mg PO .DAILY@LUNCH PRN 08/05/19 08/10/19 08/10/19 cholecalciferol (vitamin D3) 125 mcg PO 2XWK 08/05/19 08/10/19 Unknown tramadol 50 mg PO Q6H PRN 08/05/19 08/10/19 08/05/19 pantoprazole [Protonix] 40 mg PO BID #60 tab 08/07/19 08/10/19 08/10/19 Active Medications Generic Name Dose Route Start Last Admin Trade Name Freq PRN Reason Stop Dose Admin Allopurinol 300 mg 08/11/19 09:00 08/19/19 08:24 Zyloprim PO 09/10/19 08:59 300 mg QAM ASHLEIGH Administration Allopurinol 100 mg 08/11/19 09:00 08/19/19 08:25 Zyloprim PO 09/10/19 08:59 100 mg QAM ASHLEIGH Administration Amiodarone HCl 200 mg 08/11/19 09:00 08/19/19 08:24 Cordarone PO 09/10/19 08:59 200 mg BID ASHLEIGH Administration Bumetanide 4 mg 08/17/19 09:00 08/19/19 08:24 Bumex PO 09/16/19 08:59 4 mg QAM ASHLEIGH Administration Digoxin 0.125 mg 08/11/19 16:00 08/19/19 17:12 Lanoxin PO 09/10/19 15:59 0.125 mg Q48H ASHLEIGH Administration Metronidazole 500 mg in 100 mls @ 100 mls/hr 08/19/19 13:00 08/19/19 14:20 Flagyl IV 08/29/19 12:59 Infused Q8H ASHLEIGH Infusion Insulin Aspart 0 units 08/11/19 02:16 08/19/19 17:21 Novolog Flexpen SC 09/10/19 02:15 1 units ACHS ASHLEIGH Administration Insulin Glargine 9 units 08/18/19 09:00 08/19/19 08:25 Lantus Solostar Pen SC 09/17/19 08:59 9 units QAM ASHLEIGH Administration Protocol Metoprolol Succinate 25 mg 08/11/19 09:00 08/19/19 08:24 Toprol Xl PO 09/10/19 08:59 25 mg BID ASHLEIGH Administration Pantoprazole Sodium 40 mg 08/11/19 02:16 08/19/19 08:25 Protonix PO 09/10/19 02:15 40 mg BID ASHLEIGH Administration Venlafaxine HCl 150 mg 08/11/19 09:00 08/19/19 08:24 Effexor Extended Release PO 09/10/19 08:59 150 mg BID ASHLEIGH Administration Warfarin Sodium 5 mg 08/17/19 16:00 08/18/19 16:43 Coumadin PO 09/16/19 15:59 5 mg DAILY@1600 ASHLEIGH Administration Past Medical History Medical History Anxiety (Inactive) Atrial fibrillation, chronic (Chronic) CAD (coronary artery disease) (Chronic) stenting to LAD in 1994 and 1996 stenting to RCA and LAD in 2007 CKD (chronic kidney disease) (Acute) Congestive heart failure (Resolved) Depression with anxiety (Chronic) Diabetes mellitus type II, controlled (Chronic) Diabetic neuropathy (Chronic) Dyslipidemia (Chronic) Gout HTN (hypertension) (Chronic) Ischemic dilated cardiomyopathy (Inactive) [facility] current use of anticoagulant (Chronic) warfarin daily Myocardial Infarction (Resolved) 1989. CARDIAC CATH WITH 2 STENTS ANTOINETTE on CPAP (Chronic) Systolic and diastolic CHF, chronic (Chronic) Past Family History Family History Mother Coronary heart disease Diabetes Father Lung cancer Sister Diabetes Past Surgical History Surgical History AICD (automatic cardioverter/defibrillator) present (Chronic) placed on 10/24/17 [employer] DEVICE. LAST CHECKED [address] DOMINGUEZ/[facility] OFFICE. PLACED IN OCTOBER 2017 AT [facility] History of bowel resection (Resolved) MASSIVE POLPYS History of cardiac cath (Inactive) 1989 --> X2 STENTS. BARE METAL STENTS ~1992 --> X2 STENTS. DRUG ELUTING STENTS. History of cataract surgery (Resolved) BILATERAL History of colonoscopy (Inactive) History of heart artery stent (Resolved) History of partial colectomy (Resolved) "[facility]/ ilieorectal anast/ multiple polyps 2008" Stented coronary artery (Inactive) "stents x 4 to RCA and LAD 1997" Social History Smoking Status: Never smoker Hx Alcohol Use: No Hx Substance Use: No substance use type: does not use Physical Exam Vital Signs Last Vital Signs Temp 36.6 C 08/19/19 15:43 Pulse 77 08/19/19 17:12 Resp 22 08/19/19 15:43 BP 125/81 08/19/19 15:43 Pulse Ox 97 08/19/19 15:43 Testing Laboratory Results 08/19/19 06:27 08/19/19 06:27 PT 23.1 Seconds (9.0-12.0) H 08/19/19 06:27 INR 2.3 (0.9-1.1) H 08/19/19 06:27 APTT 29.0 Seconds (21.0-31.0) 08/10/19 21:32 Urine Color Yellow 08/14/19 04:05 Urine Appearance Clear (Clear) 08/14/19 04:05 Urine pH 5.5 (4.5-7.5) 08/14/19 04:05 Ur Specific [place] 1.021 (1.000-1.030) 08/14/19 04:05 Urine Protein Trace (Negative) H 08/14/19 04:05 Urine Glucose (UA) Negative (Negative) 08/14/19 04:05 Urine Ketones Negative (Negative) 08/14/19 04:05 Urine Nitrite Negative (Negative) 08/14/19 04:05 Ur Leukocyte Esterase 1+ (Negative) H 08/14/19 04:05 Urine WBC (Auto) 10-30 /hpf (0-5) H 08/14/19 04:05 Urine RBC (Auto) 0-4 /hpf (0-4) 08/14/19 04:05 U Hyaline Cast (Auto) 5-10 /lpf (0-5) H 08/14/19 04:05 U Epithel Cells (Auto) >30 /lpf (0-5) H 08/14/19 04:05 Urine Bacteria (Auto) Negative (Negative) 08/14/19 04:05 Blood Type AB Positive 08/10/19 23:37 Antibody Screen NEGATIVE 08/10/19 23:37 08/14/19 04:05 Urine Culture - Final Urine,Indwelling Cath No growth - less than 1,000 colonies/mL. 08/11/19 03:45 Urine Culture - Final Urine,Clean Catch Three types of organisms present, all high counts probable skin mady. No further identifications or sensitivities to follow. 08/19/19 08/19/19 08/19/19 16:16 11:19 07:22 POC Glucose 145 H 171 H 170 H
[2019-08-19] MEDS: CIPROFLOXACIN / D5W 200 MG/100 ML BAG IV SCH (21:26)
[2019-08-20] MEDS: metroNIDAZOLE 500 MG/100 ML BAG IV SCH ×4 (05:03→21:50)
[2019-08-20 06:11] LABS: Basophils # (auto) 0.01 K/uL (0-0.2); Basophils % (auto) 0.1 %; Eosinophils # (auto) 0.08 K/uL (0-0.5); Hematocrit (blood only) 27.8 % (42-52); Hemoglobin 8.4 g/dL (14.0-18.0); Immature Granulocytes # (auto) 0.03 K/uL (0.00-0.02); Immature Granulocytes % (auto) 0.4 %; Lymphocytes # (auto) 0.38 K/uL (1.2-3.4); Lymphocytes % (auto) 4.8 %; Mean Corpuscular Hemoglobin 28.5 pg (25-34); Mean Corpuscular Hgb Conc 30.2 g/dL (32-36); Mean Corpuscular Volume 94.2 fL (80-100); Mean Platelet Volume 10.4 fL (7.4-10.4); Monocytes # (auto) 1.18 K/uL (0.11-0.59); Neutrophils # (auto) 6.19 K/uL (1.4-6.5); Neutrophils % (auto) 78.7 %; Nucleated RBC # (auto) 0.07 K/uL (0-0); Nucleated RBC % (auto) 0.9 %; Platelet Count 223 K/uL (130-400); RDW Coefficient of Variation 17.9 % (11.5-14.5); RDW Standard Deviation 60.7 fL (36.4-46.3); Red Blood Count 2.95 M/uL (4.7-6.1); White Blood Count 7.87 K/uL (4.8-10.8)
[2019-08-20 06:19] LABS: INR 1.7 (0.9-1.1); Prothrombin Time 17.7 Seconds (9.0-12.0)
[2019-08-20 06:42] LABS: BUN Creatinine Ratio 32.8 (10-20); Creatinine Clr Calc Pharmacy 38.5 ml/min; Est GFR (African American) 34.9; Est GFR (Non-African American) 30.1
[2019-08-20 06:47] LABS: Albumin Globulin Ratio 0.9 (0.9-2); Bilirubin,Total 1.6 mg/dl (0.2-1); Globulin 3.2 gm/dl (2.5-4.0); Total Protein 6.2 gm/dl (6.4-8.2)
[2019-08-20] MEDS: CIPROFLOXACIN / D5W 200 MG/100 ML BAG IV SCH ×2 (08:04→20:57)
[2019-08-20] MEDS: INSULIN ASPART 100 UNITS/ML 3 ML PEN SC SCH ×4 (08:04→21:53)
[2019-08-20] MEDS: BUMETANIDE 1 MG TAB PO SCH (08:05)
[2019-08-20] MEDS: PANTOprazole 40 MG TAB PO SCH ×2 (08:06→21:52)
[2019-08-20] MEDS: allopurinoL 100 MG TAB PO SCH (08:06)
[2019-08-20] MEDS: AMIODARONE 200 MG TAB PO SCH ×3 (08:06→21:51)
[2019-08-20] MEDS: allopurinoL 300 MG TAB PO SCH (08:06)
[2019-08-20] MEDS: METOPROLOL SUCC 25MG EXT REL TAB PO SCH ×2 (08:07→21:52)
[2019-08-20] MEDS: VENLAFAXINE HCL XR 150 MG CAPXR PO SCH ×2 (08:07→21:50)
[2019-08-20] MEDS: INSULIN GLARGINE SOLOSTAR 100 UNITS/ML 3 ML PEN SC SCH (08:15)
[2019-08-20] MEDS ORDERED: SODIUM CHLORIDE 0.9% 250 ML IV PRN (08:19)
[2019-08-20] MEDS ORDERED: PHYTONADIONE 10 MG in SODIUM CHLORIDE 0.9% 50 ML IV ONE (08:45)
--- NOTE | 2019-08-20 09:32 | Cardiology Progress Note ---
Date of Service August 20, 2019 Assessment & Plan (1) Systolic and diastolic CHF, chronic: -the patient is euvolemia. -would continue diuresis with Bumex 4mg daily. (2) AICD (automatic cardioverter/defibrillator) present: -single-chamber ICD. -proper function at time of last interrogation. -no defibrillations since February 2019. (3) Atrial fibrillation, chronic: -anticoagulation currently on hold. (4) Ischemic cardiomyopathy: -left ventricular ejection fraction of 25-30% on most recent evaluation. (5) Gallstones with biliary obstruction: -for an ERCP today. -acceptable cardiac risk. Admission and Anticipated Discharge Date Admission Date: August 11, 2019 Subjective The patient is resting comfortably in bed without complaints of chest pain or dyspnea. Physical Exam Physical Exam: In general this is a well-developed well-nourished white male in no acute distress. HEENT exam is negative. Neck reveals normal carotid upstrokes without bruits. No jugular venous distension. There is no thyromegaly. Cardiovascular exam reveals a regular rhythm with a normal S1 and S2. No murmurs, S3, or S4 are noted. Lungs are clear without rales, rhonchi, or wheezes. Abdomen is soft without bruits. Extremities reveal intact radial artery pulses bilaterally. There is 1+ nonpitting edema of both lower extremities. Diffuse varicosities and hyperpigmentation changes noted. Results & Data ([facility]) Vital Signs (Past 12 Hours) Vital Signs Temp Pulse Pulse Resp BP BP Pulse Ox 08/20/19 09:24 36.5 C 79 18 134/75 92 08/20/19 09:07 36.4 C L 77 18 156/78 H 94 08/20/19 07:54 36.3 C L 79 20 144/77 H 95 08/20/19 07:07 65 08/20/19 02:41 36.5 C 74 21 148/73 H 93 08/19/19 23:41 36.4 C L 72 20 126/70 97 08/19/19 23:38 74 PG Care Time/CCT Total # of Minutes Spent Total Time Spent with Patient: Total time spent is greater than 50% in coordination of care (as documented) at patient's floor/unit and/or counseling patient: Coding Level of Care Code 31145 Subseq Hosp Care Lvl 3 Diagnoses Systolic and diastolic CHF, chronic I50.42 AICD (automatic cardioverter/defibrillator) present Z95.810 Atrial fibrillation, chronic I48.2 Ischemic cardiomyopathy I25.5 Gallstones with biliary obstruction K80.21
[2019-08-20] MEDS: POTASSIUM CHLORIDE / WTR 10 MEQ/100 ML PLCT IV SCH ×2 (10:18→11:18)
--- NOTE | 2019-08-20 12:21 | Gastroenterology Progress Note ---
Date of Service August 20, 2019 Assessment & Plan (1) Elevated LFTs: 69 y/o male with abd pain and acutely elevated LFTs in an obstructive pattern with US noting a 1.2 cm gallstone in the GB neck, worrisome for biliary obstruction. Today LFTs still elevated but slightly better; abd pain is imp roved. Abd is soft, nontender - EUS/ERCP today - Continue to hold Coumadin - Another dose of Vit K 10 mg IV given now - 2 Units of FFP - Continue empiric IV Cipro/Flagyl (renally dose) - Analgesia, antiemetics PRN - Keep NPO - IV hydration as permitted with CHF (2) Gallstones with biliary obstruction: Admission and Anticipated Discharge Date Admission Date: August 11, 2019 Supervising Physician Co-Signing Physician Notes I performed a history and physical examination of the patient today, including specifically on physical exam - soft abdomen. I have discussed the patient's management with the advanced practitioner. Please refer to the nurse practitioner's note for the documented findings and plan of care. Subjective Pt seen and examined. Resting comfortably in bed with O2 via NC. Remains NPO. Feeling better today; currently having no ABD pain. Nurse reports pt still somewhat sleepy; had a semi-formed brown BM today. Labs with improved though still elevated LFTs (AST 1200 -> 720, ALT 1000 -> 972, ALP 134, Tbili 2.0 -> 1.6), K 3.0 and is being replaced. INR down to 1.7 with vit K. WBC WNL, HGB stable, plts WNL. stable CKD. Review of Systems Constitutional: no fever and no chills Respiratory: as per Subjective / HPI and + cough; no dyspnea Cardiovascular: no chest pain and no dyspnea Genitourinary: no dysuria (no hematuria) Integumentary: no rash no jaundice Physical Exam Constitutional: well developed and well nourished; no acute distress Eyes: + anicteric sclerae Respiratory: normal respiratory effort occasional crackles Cardiovascular: Rate/Rhythm: regular rate and regular rhythm mild BLE Gastrointestinal (Abdomen): Inspection/Auscultation: abdomen normal to inspection and normal bowel sounds; abdomen not distended Percussion/Palpation: abdomen soft; abdomen nontender Skin: no rashes, warm and dry Psychiatric: Much more alert today; not falling asleep like yesterday; follows commands, speech is fluent Results & Data ([facility]) Vital Signs (Past 12 Hours) Vital Signs Temp Pulse Pulse Resp BP BP Pulse Ox 08/20/19 11:48 36.5 C 78 20 146/82 H 95 08/20/19 11:33 36.7 C 79 20 159/79 H 92 08/20/19 11:16 36.8 C 78 20 150/78 H 97 08/20/19 10:59 36.4 C L 71 18 157/92 H 93 08/20/19 10:09 36.5 C 77 20 151/73 H 93 08/20/19 09:39 36.8 C 78 20 152/80 H 92 08/20/19 09:24 36.5 C 79 18 134/75 92 08/20/19 09:07 36.4 C L 77 18 156/78 H 94 08/20/19 07:54 36.3 C L 79 20 144/77 H 95 08/20/19 07:07 65 08/20/19 02:41 36.5 C 74 21 148/73 H 93 Laboratory Results 08/20/19 08/20/19 08/20/19 Range/Units 11:37 07:37 05:36 WBC (4.8-10.8) K/uL RBC (4.7-6.1) M/uL Hgb (14.0-18.0) g/dL Hct (42-52) % MCV (80-100) fL MCH (25-34) pg MCHC (32-36) g/dL RDW Std Deviation (36.4-46.3) fL RDW Coeff of Joe (11.5-14.5) % Plt Count (130-400) K/uL MPV (7.4-10.4) fL Immature Gran % (Auto) % Neut % (Auto) % Lymph % (Auto) % [place] % (Auto) % Eos % (Auto) % Baso % (Auto) % Immature Gran # (Auto) (0.00-0.02) K/uL Neut # (Auto) (1.4-6.5) K/uL Lymph # (Auto) (1.2-3.4) K/uL [place] # (Auto) (0.11-0.59) K/uL Eos # (Auto) (0-0.5) K/uL Baso # (Auto) (0-0.2) K/uL Absolute Nucleated RBC (0-0) K/uL Nucleated RBC % (auto) % PT 17.7 H (9.0-12.0) Seconds INR 1.7 H (0.9-1.1) Sodium (136-145) mmol/L Potassium (3.5-5.1) mmol/L Chloride (98-107) mmol/L Carbon Dioxide (21-32) mmol/L Anion Gap (3-11) BUN (7-18) mg/dl Creatinine (0.6-1.4) mg/dl Est Cr Clr Drug Dosing ml/min Est GFR ( Amer) Est GFR (Non-Af Amer) BUN/Creatinine Ratio (10-20) Glucose (70-99) mg/dl POC Glucose 145 H 127 H (70-99) mg/dl Calcium (8.5-10.1) mg/dl Total Bilirubin (0.2-1) mg/dl AST (15-37) U/L ALT (12-78) U/L Alkaline Phosphatase (45-117) U/L Total Protein (6.4-8.2) gm/dl Albumin (3.4-5.0) gm/dl Globulin (2.5-4.0) gm/dl Albumin/Globulin Ratio (0.9-2) 08/20/19 08/20/19 08/19/19 Range/Units 05:36 05:36 20:36 WBC 7.87 (4.8-10.8) K/uL RBC 2.95 L (4.7-6.1) M/uL Hgb 8.4 L (14.0-18.0) g/dL Hct 27.8 L (42-52) % MCV 94.2 (80-100) fL MCH 28.5 (25-34) pg MCHC 30.2 L (32-36) g/dL RDW Std Deviation 60.7 H (36.4-46.3) fL RDW Coeff of Joe 17.9 H (11.5-14.5) % Plt Count 223 (130-400) K/uL MPV 10.4 (7.4-10.4) fL Immature Gran % (Auto) 0.4 % Neut % (Auto) 78.7 % Lymph % (Auto) 4.8 % [place] % (Auto) 15.0 % Eos % (Auto) 1.0 % Baso % (Auto) 0.1 % Immature Gran # (Auto) 0.03 H (0.00-0.02) K/uL Neut # (Auto) 6.19 (1.4-6.5) K/uL Lymph # (Auto) 0.38 L (1.2-3.4) K/uL [place] # (Auto) 1.18 H (0.11-0.59) K/uL Eos # (Auto) 0.08 (0-0.5) K/uL Baso # (Auto) 0.01 (0-0.2) K/uL Absolute Nucleated RBC 0.07 H (0-0) K/uL Nucleated RBC % (auto) 0.9 % PT (9.0-12.0) Seconds INR (0.9-1.1) Sodium 137 (136-145) mmol/L Potassium 3.0 L D (3.5-5.1) mmol/L Chloride 96 L (98-107) mmol/L Carbon Dioxide 30 (21-32) mmol/L Anion Gap 11.0 (3-11) BUN 71 H (7-18) mg/dl Creatinine 2.16 H D (0.6-1.4) mg/dl Est Cr Clr Drug Dosing 38.5 ml/min Est GFR ( Amer) 34.9 Est GFR (Non-Af Amer) 30.1 BUN/Creatinine Ratio 32.8 H (10-20) Glucose 113 H (70-99) mg/dl POC Glucose 151 H (70-99) mg/dl Calcium 8.0 L (8.5-10.1) mg/dl Total Bilirubin 1.6 H (0.2-1) mg/dl AST 725 H (15-37) U/L ALT 972 H (12-78) U/L Alkaline Phosphatase 134 H (45-117) U/L Total Protein 6.2 L (6.4-8.2) gm/dl Albumin 3.0 L (3.4-5.0) gm/dl Globulin 3.2 (2.5-4.0) gm/dl Albumin/Globulin Ratio 0.9 (0.9-2) 06/01/20 Range/Units 16:16 WBC (4.8-10.8) K/uL RBC (4.7-6.1) M/uL Hgb (14.0-18.0) g/dL Hct (42-52) % MCV (80-100) fL MCH (25-34) pg MCHC (32-36) g/dL RDW Std Deviation (36.4-46.3) fL RDW Coeff of Joe (11.5-14.5) % Plt Count (130-400) K/uL MPV (7.4-10.4) fL Immature Gran % (Auto) % Neut % (Auto) % Lymph % (Auto) % [place] % (Auto) % Eos % (Auto) % Baso % (Auto) % Immature Gran # (Auto) (0.00-0.02) K/uL Neut # (Auto) (1.4-6.5) K/uL Lymph # (Auto) (1.2-3.4) K/uL [place] # (Auto) (0.11-0.59) K/uL Eos # (Auto) (0-0.5) K/uL Baso # (Auto) (0-0.2) K/uL Absolute Nucleated RBC (0-0) K/uL Nucleated RBC % (auto) % PT (9.0-12.0) Seconds INR (0.9-1.1) Sodium (136-145) mmol/L Potassium (3.5-5.1) mmol/L Chloride (98-107) mmol/L Carbon Dioxide (21-32) mmol/L Anion Gap (3-11) BUN (7-18) mg/dl Creatinine (0.6-1.4) mg/dl Est Cr Clr Drug Dosing ml/min Est GFR ( Amer) Est GFR (Non-Af Amer) BUN/Creatinine Ratio (10-20) Glucose (70-99) mg/dl POC Glucose 145 H (70-99) mg/dl Calcium (8.5-10.1) mg/dl Total Bilirubin (0.2-1) mg/dl AST (15-37) U/L ALT (12-78) U/L Alkaline Phosphatase (45-117) U/L Total Protein (6.4-8.2) gm/dl Albumin (3.4-5.0) gm/dl Globulin (2.5-4.0) gm/dl Albumin/Globulin Ratio (0.9-2)
--- NOTE | 2019-08-20 12:54 | Hospitalist Progress Note ---
Date of Service August 20, 2019 Assessment & Plan (1) Gallstones with biliary obstruction: Has been having fluctuating confusion mostly at previous 2 nights Noted to have abdominal pain last night and was found to have very high transaminitis Ultrasound showed gallstones with biliary obstructions Appreciate GI input and recommendation LFTs have been improving Received vitamin K yesterday and fresh frozen plasma this morning He is much better clinically Awaiting EUS (2) SOB (shortness of breath): Acute systolic and diastolic CHF exacerbation CXR:Interval development of mild congestive change. Cardiomegaly and small bilateral pleural effusions persist. H/O ischemic cardiomyopathy with EF of 35% in 2019 S/P AICD-ICD Interrogation completed CTA on 08/13/19: No evidence of pulmonary embolus. Cardiomegaly with findings of a pericardial effusion. Maximum thickness of 1.1 cm. Bilateral pleural effusions with mild consolidative change left lower lobe. Continue Entresto Received 40 of IV Lasix on 08/13/2019 Appreciate Cardiology Input and recommendation Condition got worse overnight and required BiPAP therapy Chest x-ray showed-acute CHF Received 80 of IV Lasix on 08/14/2019 Creatinine remains stable and seems to be improved Will give 40 of IV Lasix today Appreciate cardiology input and recommendation again Clinically worse today with increased desaturation on ambulation during physical therapy He denies any significant symptoms at rest Will restart oral dose of Bumex as an outpatient-monitor PRP Remains stable with minimal shortness of breath at rest Bumex 4 mg in the morning daily has been started We will continue Bumex on discharge Minimal to no shortness of breath at rest Appreciate cardiology evaluation and recommendation Pericardial Effusion Incidental finding on CT--as above Nothing to suggest tamponade Symptomatic anemia Positive fecal occult in the emergency room Hemoglobin dropped from prior admission despite being off Coumadin Received 2 units of blood transfusion BUN mildly elevated, total bilirubin within normal limits Aspirin held Appreciate GI input-planed EGD has been canceled as of 08/14/2019 due to worsening cardiac condition Avoid any anticoagulants Hemoglobin remained stable at more than 8 since blood transfusion Hemoglobin remains more than 8 for the last few days Will EUS this afternoon Microscopic Hematuria No gross hematuria noted Repeat UA tomorrow Consider Urology Input if needed Resolved Stroke like Symptoms/Vertigo DD: Hypoglycemia, ICD problems, complex migraine CT head:No acute intracranial findings. No significant change in appearance of the brain. Carotid Doppler: 50-69% stenosis of the origin/proximal left internal carotid artery. Neurology Consulted -no further recommendation as symptoms are not due to Doppler findings in neck Resume antiplatelet drugs (Consider staring Plavix instead of Aspirin) as able Vs consideration for possible watchman device CKD III Baseline Cr:1.4-1.7 Monitor renal function CAD Aspirin on hold Continue Lipitor, metoprolol, Entresto We will hold aspirin for now H/O atrial fibrillation Rate controlled Currently off anticoagulation due to GI bleed issues Continue amiodarone, metoprolol, digoxin Resume anticoagulation as soon as possible Will resume anticoagulation from today Check INR tomorrow-Coumadin has been on hold and reversed with vitamin K and fresh frozen plasma for grossly abnormal LFTs Hyperlipidemia on statin DM II Hypoglycemic prior to admission Hb A1C:6.22 Jul 2019 Continue insulin therapy Glycemic pharmacy consult. Hypokalemia Likely due to medications Replete electrolytes as needed ANTOINETTE on CPAP DVT Px: Was on Coumadin SCD RE occult GI/symptomatic anemia Discussed with the in detail and updated about his current condition Will discuss with his Code Status Full code Disposition Expect to discharge home when medically stable Updating his daily. (3) Metabolic encephalopathy: Admission and Anticipated Discharge Date Admission Date: August 11, 2019 Subjective The patient was seen and examined in telemetry unit He was noted to be very somnolent this morning that EGD has been canceled He remains very drowsy but always responding to commands Denies any significant pain 08/15/2019 Patient is seen and examined in telemetry unit He remains very stable and much improved as of yesterday He is out of bed on a chair and has been communicating normally Requires less nasal cannula oxygen to maintain saturation 08/16/2019 The patient was seen and examined in telemetry unit He has been feeling a lot better and denies any symptoms at rest He will not have EGD during this admission Likely to be discharged tomorrow 08/17/2019 The patient was seen and examined in telemetry unit He complains to have no shortness of breath at rest but noted to have shortness of breath with decreased saturation with ambulation during physical therapy He denies any chest pain and/or palpitation He will not be discharged today as planned earlier 08/18/2019 The patient was seen and examined in telemetry unit He remains minimally short of breath at rest Noted to be confused last night and has not been eating keeping BiPAP and/or CPAP in place Has had 2 steps O2 saturation done and he requires oxygen with ambulation 08/19/2019 The patient was seen and examined in telemetry unit He was very confused yesterday with right upper quadrant abdominal pain Noted to have highly elevated transaminases He was drowsy this morning but could manage to complicate with me during my examination 08/20/2019 The patient was seen and examined in telemetry unit He has been a lot better since this morning Has been conversing normally without any acute distress at rest He has been waiting for EUS this afternoon Review of Systems Review of Systems: All systems reviewed and are unremarkable except as noted below Respiratory: no dyspnea (Minimal dyspnea at rest) and no wheezing Cardiovascular: + dyspnea (Minimal dyspnea with exertion) and + edema; no chest pain and no palpitations Neurologic: Drowsy and moderately short of breath and trying to communicate Physical Exam Physical Exam: Sitting on a chair with mild shortness of breath at rest Constitutional: well developed, well nourished, + ill appearing and + obese; no acute distress Eyes: PERRL, conjunctivae normal, anicteric sclerae ENMT: external ear and nose normal, oropharynx normal Neck: trachea midline, no thyromegaly Respiratory: + respiratory distress (Minimal distress at rest) Auscultation: + diminished lung sounds and + crackles (Bibasilar crackles worse today); no wheezes Cardiovascular: Rate/Rhythm: regular rate, regular rhythm and + irregularly irregular Extremities: + edema (1+ bilateral leg edema) Gastrointestinal (Abdomen): Inspection/Auscultation: + abdomen distended Percussion/Palpation: abdomen soft; abdomen nontender Musculoskeletal: No acute arthritis involving any joints Neurologic: moves all extremities and + focal motor deficit Lymphatic: no cervical or axillary lymphadenopathy Results & Data Results & Data ([facility]) Vital Signs (Past 12 Hours) Vital Signs Temp Pulse Pulse Resp BP BP Pulse Ox 08/20/19 12:18 36.5 C 77 20 152/69 H 95 08/20/19 11:48 36.5 C 78 20 146/82 H 95 08/20/19 11:33 36.7 C 79 20 159/79 H 92 08/20/19 11:16 36.8 C 78 20 150/78 H 97 08/20/19 10:59 36.4 C L 71 18 157/92 H 93 08/20/19 10:09 36.5 C 77 20 151/73 H 93 08/20/19 09:39 36.8 C 78 20 152/80 H 92 08/20/19 09:24 36.5 C 79 18 134/75 92 08/20/19 09:07 36.4 C L 77 18 156/78 H 94 08/20/19 07:54 36.3 C L 79 20 144/77 H 95 08/20/19 07:07 65 08/20/19 02:41 36.5 C 74 21 148/73 H 93 Laboratory Results Short CBC 08/20/19 Range/Units 05:36 WBC 7.87 (4.8-10.8) K/uL Hgb 8.4 L (14.0-18.0) g/dL Hct 27.8 L (42-52) % Plt Count 223 (130-400) K/uL BMP 08/20/19 05:36 Sodium 137 Potassium 3.0 L D Chloride 96 L Carbon Dioxide 30 BUN 71 H Creatinine 2.16 H D Glucose 113 H Calcium 8.0 L Liver Function 08/20/19 Range/Units 05:36 Total Bilirubin 1.6 H (0.2-1) mg/dl AST 725 H (15-37) U/L ALT 972 H (12-78) U/L Alkaline Phosphatase 134 H (45-117) U/L Albumin 3.0 L (3.4-5.0) gm/dl Medications Administered Current Inpatient Medications Allopurinol (Zyloprim) 300 mg PO QAM [facility] Stop: 09/10/19 08:59 Last Admin: 08/20/19 08:06 Dose: 300 mg Documented by: Allopurinol (Zyloprim) 100 mg PO QAM [facility] Stop: 09/10/19 08:59 Last Admin: 08/20/19 08:06 Dose: 100 mg Documented by: Amiodarone HCl (Cordarone) 200 mg PO BID [facility] Stop: 09/10/19 08:59 Last Admin: 08/20/19 08:06 Dose: 200 mg Documented by: Bumetanide (Bumex) 4 mg PO QAM [facility] Stop: 09/16/19 08:59 Last Admin: 08/20/19 08:05 Dose: 4 mg Documented by: Dextrose (Dextrose 50%) 25 - 50 ml IV UD PRN; Protocol PRN Reason: Hypoglycemia Protocol Stop: 09/10/19 02:15 Digoxin (Lanoxin) 0.125 mg PO Q48H [facility] Stop: 09/10/19 15:59 Last Admin: 08/19/19 17:12 Dose: 0.125 mg Documented by: Glucagon (Glucagen) 1 mg SQ UD PRN; Protocol PRN Reason: Hypoglycemia Protocol Stop: 09/10/19 02:15 Glucose (Dex4 Glucose) 4 - 8 tabs PO UD PRN; Protocol PRN Reason: Hypoglycemia Protocol Stop: 09/10/19 02:15 Glucose (Glucose 40%) 15 - 30 gm PO UD PRN; Protocol PRN Reason: Hypoglycemia Protocol Stop: 09/10/19 02:15 Hydromorphone HCl (Dilaudid) 0.25 mg IV Q3H PRN PRN Reason: Pain Stop: 08/25/19 02:15 Promethazine HCl 12.5 mg/ (Sodium Chloride) 50.5 mls @ 202 mls/hr IV Q6H PRN PRN Reason: Nausea And Vomiting Stop: 09/10/19 02:15 Metronidazole (Flagyl) 500 mg in 100 mls @ 100 mls/hr IV Q8H [facility] Stop: 08/29/19 12:59 Last Infusion: 08/20/19 14:01 Dose: Infused Documented by: Ciprofloxacin Lactate (Cipro / D5w) 200 mg in 100 mls @ 100 mls/hr IV Q12 [facility]; Protocol Stop: 08/29/19 20:59 Last Infusion: 08/20/19 09:41 Dose: Infused Documented by: Sodium Chloride (Nss) 250 mls @ 15 mls/hr IV .[id number] PRN PRN Reason: For Transfusion Stop: 08/20/19 18:19 Insulin Aspart (Novolog Flexpen) 0 units SC ACHS [facility] Stop: 09/10/19 02:15 Last Admin: 08/20/19 11:57 Dose: Not Given Documented by: Insulin Glargine (Lantus Solostar Pen) 9 units SC QAM [facility]; Protocol Stop: 09/17/19 08:59 Last Admin: 08/20/19 08:15 Dose: 9 units Documented by: Ipratropium [place] (Atrovent 0.02% 0.5mg/2.5ml) 0.5 mg INH Q4H PRN PRN Reason: Shortness Of Breath Or Wheezing Stop: 09/13/19 03:29 Levalbuterol HCl (Xopenex 1.25mg/0.5ml Neb) 1.25 mg INH Q4H PRN PRN Reason: Shortness Of Breath Or Wheezing Stop: 09/13/19 03:29 Metoprolol Succinate (Toprol Xl) 25 mg PO BID [facility] Stop: 09/10/19 08:59 Last Admin: 08/20/19 08:07 Dose: 25 mg Documented by: Miscellaneous (Carbohydrates For Hypoglycemia) 15 - 30 gm PO UD PRN PRN Reason: Hypoglycemia Protocol Stop: 09/10/19 02:15 Miscellaneous Information (Consult Glycemic Management Pharmacy) 1 ea N/A UD PRN PRN Reason: Consult Stop: 09/10/19 09:40 Nitroglycerin (Nitrostat) 0.4 mg SL UD PRN PRN Reason: Chest Pain Stop: 09/10/19 02:15 Pantoprazole Sodium (Protonix) 40 mg PO BID [facility] Stop: 09/10/19 02:15 Last Admin: 08/20/19 08:06 Dose: 40 mg Documented by: Tramadol HCl (Ultram) 25 - 50 mg PO Q6H PRN PRN Reason: Pain Stop: 09/10/19 02:15 Venlafaxine HCl (Effexor Extended Release) 150 mg PO BID [facility] Stop: 09/10/19 08:59 Last Admin: 08/20/19 08:07 Dose: 150 mg Documented by: Warfarin Sodium (Coumadin) 5 mg PO DAILY@1600 [facility] Stop: 09/16/19 15:59 Last Admin: 08/18/19 16:43 Dose: 5 mg Documented by:
--- NOTE | 2019-08-20 14:40 | Pharmacy Report ---
Pharmacy Glycemic Short Note 2 - Date of Service August 20, 2019 - Glycemic Short BSG Results (Last 24 hours): 08/19/19 08/19/19 08/20/19 16:16 20:36 05:36 Glucose 113 H POC Glucose 145 H 151 H 08/20/19 08/20/19 07:37 11:37 Glucose POC Glucose 127 H 145 H OUTPATIENT ANTIDIABETIC REGIMEN: * A1c = 6.4% * Lantus 45 units SQ qAM * Novolog SS ASSESSMENT: * Patient's BSGs have been well-controlled past 48+ hours. * No changes required at this time. PLAN FOR INPATIENT GLYCEMIC CONTROL: * Basal insulin - * Lantus 9 units SQ qAM * Bolus insulin - no change * NovoLog per scale ACHS or Q6hrs while NPO * Goal Range: Low 120 mg/dL - High 150 mg/dL * Correction Factor: 25 mg/dL/unit * Nutritional / Prandial insulin per carb ratio of 1 unit per 9 grams CHO consumed PLAN FOR DISCHARGE: * A1c of 6.4% indicates excellent glycemic control * Patient was hypoglycemic on admission (BSG = 45 mg/dL). Based on age and comorbidities, would recommend a goal A1c < 7.5%. Recommend decreasing home Lantus dose by 30% to 30 units QAM. Close follow-up with outpatient provider/instrument person is recommended to discuss current regimen, A1c and hypoglycemia at home.
--- NOTE | 2019-08-20 16:57 | History & Physical Bridge Note ---
Date of Service August 20, 2019 History & Physical Bridge Note I have examined the patient, reviewed the History & Physical and in the interval since the performance of the History & Physical I have noted the following changes of clinical significance: no changes noted EUS/ERCP today
[2019-08-20] MEDS ORDERED: ePHEDrine sulfate 50 MG/ML AMP IV PRN (17:32)
[2019-08-20] MEDS ORDERED: fentaNYL citrate 100 MCG/2 ML VIAL IV PRN (17:32)
[2019-08-20] MEDS ORDERED: ONDANSETRON INJ 2 MG/ML 2 ML VIAL IV PRN (17:32)
[2019-08-20] MEDS ORDERED: ATROPINE SULFATE 0.1 MG/ML 10ML SYR IV PRN (17:32)
--- NOTE | 2019-08-20 17:32 | Anesthesiology Consultation ---
Date of Service August 20, 2019 Assessment & Plan (1) Encounter for pre-operative examination: Chart Review Chart Review: Acceptable Risk for Surgery (high risk. necessary procedure) and Patient NOT seen in Pre Admission Testing Consults Requested none ASA ASA4 Proposed Anesthesia Anesthesia Type: General Risk / Benefits Reviewed With: PT / POA / Parent / Guardian, Accepts Plan and Informed Consent Obtained History Surgery Operation Date: 08/14/19 16:00 Proposed Procedures p Colonoscopy EGD Dr Medina - Dorothy Medina Operation Date: 08/20/19 10:30 Proposed Procedures p Endoscopic Ultrasonography Upper - Angela Duncan MD s Endoscopic Retrograde Cholangiopancreatogram - Angela Duncan MD Height/Weight Height: 5 ft 7 in Weight: 111.8 kg Allergies Allergy/AdvReac Type Severity Reaction Status Date / Time Penicillins Allergy Mild childhood Verified 08/10/19 23:04 reaction codeine AdvReac Mild NAUSEA, Verified 08/10/19 23:04 LIGHTHEADEDNESS simvastatin AdvReac Mild makes him Verified 08/10/19 23:04 feel like he is high Medications Home Medications Medication Instructions Recorded Confirmed Last Taken aspirin 81 mg PO QAM 01/25/18 08/10/19 08/10/19 atorvastatin 40 mg PO QPM 01/25/18 08/10/19 08/10/19 allopurinol 100 mg PO QAM 09/11/18 08/10/19 08/10/19 allopurinol 300 mg PO QAM 09/26/18 08/10/19 08/10/19 insulin glargine 100 unit/mL (3 45 units SUBCUT QAM ml 12/17/18 08/10/19 08/10/19 mL) subcutaneous pen metoprolol succinate 100 mg PO BID 01/21/19 08/10/19 08/10/19 nitroglycerin 0.4 mg SUBLINGUAL UD PRN 01/21/19 08/10/19 Unknown venlafaxine 150 mg PO BID 01/21/19 08/10/19 08/10/19 insulin aspart U-100 100 unit/mL 0 units SQ ACHS ml 01/30/19 08/10/19 08/10/19 17:00 (3 mL) subcutaneous pen meclizine 12.5 mg tablet 12.5 mg PO TID PRN 01/30/19 08/10/1920 09:00 sacubitril 97 mg-valsartan 103 mg 1 tab PO BID 90 Days #180 tab 01/30/19 08/10/19 08/10/19 tablet bumetanide 4 mg PO QAM 02/27/19 08/10/19 08/10/19 potassium chloride 10 meq PO BID 02/27/19 08/10/19 08/10/19 digoxin 125 mcg (0.125 mg) tablet 125 mcg PO Q2D #45 tab 03/19/19 08/11/19 08/09/19 amiodarone 200 mg tablet 200 mg PO BID #180 tab 05/16/19 08/10/19 08/10/19 lorazepam 0.5 mg tablet 0.5 mg PO DAILY PRN #30 tab 07/25/19 08/10/19 Unknown bumetanide 2 mg PO .DAILY@LUNCH PRN 08/05/19 08/10/19 08/10/19 cholecalciferol (vitamin D3) 125 mcg PO 2XWK 08/05/19 08/10/19 Unknown tramadol 50 mg PO Q6H PRN 08/05/19 08/10/19 08/05/19 pantoprazole [Protonix] 40 mg PO BID #60 tab 08/07/19 08/10/19 08/10/19 Active Medications Generic Name Dose Route Start Last Admin Trade Name Freq PRN Reason Stop Dose Admin Allopurinol 300 mg 08/11/19 09:00 08/20/19 08:06 Zyloprim PO 09/10/19 08:59 300 mg QAM ASHLEIGH Administration Allopurinol 100 mg 08/11/19 09:00 08/20/19 08:06 Zyloprim PO 09/10/19 08:59 100 mg QAM ASHLEIGH Administration Amiodarone HCl 200 mg 08/11/19 09:00 08/20/19 08:06 Cordarone PO 09/10/19 08:59 200 mg BID ASHLEIGH Administration Bumetanide 4 mg 08/17/19 09:00 08/20/19 08:05 Bumex PO 09/16/19 08:59 4 mg QAM ASHLEIGH Administration Digoxin 0.125 mg 08/11/19 16:00 08/19/19 17:12 Lanoxin PO 09/10/19 15:59 0.125 mg Q48H ASHLEIGH Administration Metronidazole 500 mg in 100 mls @ 100 mls/hr 08/19/19 13:00 08/20/19 14:01 Flagyl IV 08/29/19 12:59 Infused Q8H ASHLEIGH Infusion Ciprofloxacin Lactate 200 mg in 100 mls @ 100 mls/hr 08/19/19 21:00 08/20/19 09:41 Cipro / D5w IV 08/29/19 20:59 Infused Q12 ASHLEIGH Infusion Protocol Insulin Aspart 0 units 08/11/19 02:16 08/20/19 11:57 Novolog Flexpen SC 09/10/19 02:15 Not Given ACHS ASHLEIGH Insulin Glargine 9 units 08/18/19 09:00 08/20/19 08:15 Lantus Solostar Pen SC 09/17/19 08:59 9 units QAM ASHLEIGH Administration Protocol Metoprolol Succinate 25 mg 08/11/19 09:00 08/20/19 08:07 Toprol Xl PO 09/10/19 08:59 25 mg BID ASHLEIGH Administration Pantoprazole Sodium 40 mg 08/11/19 02:16 08/20/19 08:06 Protonix PO 09/10/19 02:15 40 mg BID ASHLEIGH Administration Venlafaxine HCl 150 mg 08/11/19 09:00 08/20/19 08:07 Effexor Extended Release PO 09/10/19 08:59 150 mg BID ASHLEIGH Administration Warfarin Sodium 5 mg 08/17/19 16:00 08/18/19 16:43 Coumadin PO 09/16/19 15:59 5 mg DAILY@1600 ASHLEIGH Administration NPO Date Last Intake of Fluids: 08/20/19 Time Last Intake of Fluids: 08:15 Date Last Intake of Solids: 08/19/19 Time Last Intake of Solids: 18:00 Past Medical History Medical History Anxiety (Inactive) Atrial fibrillation, chronic (Chronic) CAD (coronary artery disease) (Chronic) stenting to LAD in 1994 and 1996 stenting to RCA and LAD in 2007 CKD (chronic kidney disease) (Acute) Congestive heart failure (Resolved) Depression with anxiety (Chronic) Diabetes mellitus type II, controlled (Chronic) Diabetic neuropathy (Chronic) Dyslipidemia (Chronic) Gout HTN (hypertension) (Chronic) Ischemic dilated cardiomyopathy (Inactive) 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 CARDIAC CATH WITH 2 STENTS ANTOINETTE on CPAP (Chronic) Systolic and diastolic CHF, chronic (Chronic) Exercise / Class Metabolic Activity III < 4 Walking/Shop/Light housework Past Family History Family History Mother Coronary heart disease Diabetes Father Lung cancer Sister Diabetes Past Surgical History Surgical History AICD (automatic cardioverter/defibrillator) present (Chronic) placed on 10/24/17 [employer] DEVICE. LAST CHECKED [address] DOMINGUEZ[facility]. PLACED IN OCTOBER 2017 AT [facility] History of bowel resection (Resolved) MASSIVE POLPYS History of cardiac cath (Inactive) 1989 --> X2 STENTS. BARE METAL STENTS ~1992 --> X2 STENTS. DRUG ELUTING STENTS. History of cataract surgery (Resolved) BILATERAL History of colonoscopy (Inactive) History of heart artery stent (Resolved) History of partial colectomy (Resolved) "[facility]/ ilieorectal anast/ multiple polyps 2008" Stented coronary artery (Inactive) "stents x 4 to RCA and LAD 1997" Past Anesthesia History No Hx of Anesthesia Complications and No Family Hx of Anesthesia Complications History of PONV No Hx of PONV and No Hx of Motion Sickness Social History Smoking Status: Never smoker Hx Alcohol Use: No Hx Substance Use: No substance use type: does not use Physical Exam Vital Signs Last Vital Signs Temp 36.6 C 08/20/19 16:16 Pulse 74 08/20/19 16:16 Resp 20 08/20/19 16:16 BP 154/92 H 08/20/19 16:16 Pulse Ox 98 08/20/19 16:16 Constitutional + obese ENMT Mouth: + edentulous Thyromental Distance: > or= 3.5 Finger Breadths Mallampati Class: II Neck normal visual inspection Respiratory normal respiratory effort Auscultation: + crackles (mild, at bases) Cardiovascular Rate/Rhythm: regular rate and regular rhythm Extremities: + edema (3+ bilateral LEs) Chest (Breasts) Chest: + pacemaker Psychiatric Orientation: alert Testing Laboratory Results 08/20/19 05:36 08/20/19 05:36 PT 17.7 Seconds (9.0-12.0) H 08/20/19 05:36 INR 1.7 (0.9-1.1) H 08/20/19 05:36 APTT 29.0 Seconds (21.0-31.0) 08/10/19 21:32 Urine Color Yellow 08/14/19 04:05 Urine Appearance Clear (Clear) 08/14/19 04:05 Urine pH 5.5 (4.5-7.5) 08/14/19 04:05 Ur Specific Hammond 1.021 (1.000-1.030) 08/14/19 04:05 Urine Protein Trace (Negative) H 08/14/19 04:05 Urine Glucose (UA) Negative (Negative) 08/14/19 04:05 Urine Ketones Negative (Negative) 08/14/19 04:05 Urine Nitrite Negative (Negative) 08/14/19 04:05 Ur Leukocyte Esterase 1+ (Negative) H 08/14/19 04:05 Urine WBC (Auto) 10-30 /hpf (0-5) H 08/14/19 04:05 Urine RBC (Auto) 0-4 /hpf (0-4) 08/14/19 04:05 U Hyaline Cast (Auto) 5-10 /lpf (0-5) H 08/14/19 04:05 U Epithel Cells (Auto) >30 /lpf (0-5) H 08/14/19 04:05 Urine Bacteria (Auto) Negative (Negative) 08/14/19 04:05 Blood Type AB Positive 08/10/19 23:37 Antibody Screen NEGATIVE 08/10/19 23:37 08/14/19 04:05 Urine Culture - Final Urine,Indwelling Cath No growth - less than 1,000 colonies/mL. 08/11/19 03:45 Urine Culture - Final Urine,Clean Catch Three types of organisms present, all high counts probable skin mady. No further identifications or sensitivities to follow. 08/20/19 08/20/19 11:37 07:37 POC Glucose 145 H 127 H
[2019-08-20] MEDS ORDERED: INDOMETHACIN 50 MG SUPP PR ONE (17:34)
[2019-08-20] MEDS ORDERED: fentaNYL citrate 100 MCG/2 ML VIAL ONE (17:41)
[2019-08-20] MEDS ORDERED: ROCURONIUM BROMIDE 10 MG/ML 5 ML VIAL ONE (17:41)
[2019-08-20] MEDS ORDERED: GLYCOPYRROLATE 0.2 MG/ML VIAL ONE (17:41)
[2019-08-20] MEDS ORDERED: PROPOFOL IV EMULSION 10 MG/ML 20 ML VIAL IV ONE (17:41)
[2019-08-20] MEDS ORDERED: ONDANSETRON INJ 2 MG/ML 2 ML VIAL ONE (17:41)
[2019-08-20] MEDS ORDERED: SUCCINYLCHOLINE CHLORIDE 20 MG/ML 10 ML VIAL IV ONE (17:41)
[2019-08-20] MEDS ORDERED: NEOSTIGMINE METHYLSULFATE 5 MG/5 ML SYR ONE (17:41)
[2019-08-20] MEDS ORDERED: LIDOCAINE HCL 2% 2 ML VIAL/AMP(20MG/ML) INFIL ONE (17:41)
--- NOTE | 2019-08-20 19:21 | Operative Report ---
Post Operative Report Pre & Post Diagnosis Operation Date: 08/14/19 16:00 <No data on this case meets the specified criteria> Operation Date: 08/20/19 10:30 Pre-Op Diagnosis: Biliary obstruction, Gallstones, and Abnormal Liver Function Test Post-Op Diagnosis: Biliary obstruction, Gallstones, and Abnormal Liver Function Test I identified the patient and participated in the time-out.: Yes Procedure Operation Date: 08/14/19 16:00 <No data on this case meets the specified criteria> Operation Date: 08/20/19 10:30 Actual Procedures p Esophagogastroduodenoscopy and Endoscopic Ultrasonography(Not Applicable) - Angela Duncan MD s Endoscopic Retrograde Cholangiopancreatography with Sphincterotomy and Biliary and Pancreatic Stent Placement(Not Applicable) - Angela Duncan MD Surgeon Angela Duncan MD Audio Visual Design Engineer None Estimated Blood Loss 0 Findings See Below (CBD stone and sludge removed, CBD and PD stents placed) Specimens None Description of Procedure EUS/ERCP I attest to the content of the Intraoperative Record and any orders documented therein. Any exceptions are noted below.
--- NOTE | 2019-08-20 19:26 | Fluoroscopy Report ---
[place] ERCP biliary ductal CLINICAL HISTORY: ERCP IN OR COMPARISON STUDY: Abdomen and pelvis CT 08/18/2019. FLUOROSCOPY TIME: 5 mm and 36 seconds. FINDINGS: 6 fluoroscopic spot images the right upper quadrant. The ampulla was cannulated. Contrast w as injected into the common bile duct. This is followed by placement of stents within the common bile duct and main pancreatic duct. These appear in good position. IMPRESSION: Fluoroscopy provided for ERCP. ACT 112: Negative or not required by law. Electronically signed by: Jeramy Esquivel M.D. 08/20/2019 7:25 PM
--- NOTE | 2019-08-20 19:42 | GI REPORT ---
Patient Name: Sathya Smith Procedure Date: 08/20/2019 5:59 PM Date of : 1950 Admit Type: Inpatient Age: 69 Gender: Male Attending MD: Angela Duncan MD Procedure: Upper EUS Providers: Angela Duncan MD Referring MD: Fausto Reynoso Indications: Elevated liver enzymes, Suspected choledocholithiasis Medicines: General Anesthesia Complications: No immediate complications. Estimated Blood Loss: Estimated blood loss: none. Procedure: Pre-Anesthesia Assessment: - Prior to the procedure, a History and Physical was performed, and patient medications, allergies and sensitivities were reviewed. The patient's tolerance of previous anesthesia was reviewed. - The risks and benefits of the procedure and the sedation options and risks were discussed with the patient. All questions were answered and informed consent was obtained. - Patient identification and proposed procedure were verified prior to the procedure by the physician and the nurse. The procedure was verified in the procedure room. - Pre-procedure physical examination revealed no contraindications to sedation. After obtaining informed consent, the endoscope was passed under direct vision. Throughout the procedure, the patient's blood pressure, pulse, and oxygen saturations were monitored continuously.After obtaining informed consent, the endoscope was passed under direct vision. Throughout the procedure, the patient's blood pressure, pulse, and oxygen saturations were monitored continuously. The Endosonoscope was introduced through the mouth, and advanced to the second part of duodenum. The upper EUS was accomplished without difficulty. The patient tolerated the procedure well. Findings: ENDOSONOGRAPHIC FINDING: : There was no sign of significant endosonographic abnormality in the ampulla. No masses were identified. There was dilation in the common bile duct which measured up to 8 mm. One stone was visualized endosonographically in the common bile duct. It was hyperechoic and characterized by shadowing. Sludge seen in the bile duct. Many stones were visualized endosonographically in the gallbladder. They were hyperechoic and characterized by shadowing. The gallbladder wall was normal with no evidence of inflammation. There was no sign of significant endosonographic abnormality in the visualized portion of the liver. No ascites seen. There was no sign of significant endosonographic abnormality in the entire pancreas. The pancreatic duct measured up to 2 mm in diameter in the head and 1.2 mm in the body. There was no sign of significant endosonographic abnormality in the visualized portion of the left adrenal gland. There was no sign of significant endosonographic abnormality involving the celiac trunk. Impression: - There was no sign of significant pathology in the ampulla. - There was dilation in the common bile duct which measured up to 8 mm. One stone and sludge was visualized endosonographically in the common bile duct. - Many stones were visualized endosonographically in the gallbladder. No evidence of wall thickening. - There was no evidence of significant pathology in the visualized portion of the liver. - There was no sign of significant pathology in the entire pancreas. - Endosonographic images of the left adrenal gland were unremarkable. - The celiac trunk was endosonographically normal. Recommendation: - Perform an ERCP today. Angela Duncan MD 08/20/2019 7:42:41 PM This report has been signed electronically. Note Initiated On: 08/20/2019 5:59 PM Number of Addenda: 0 I attest to the content of the Intraoperative Record and orders documented therein, exceptions below {[id number]}
--- NOTE | 2019-08-20 19:51 | GI REPORT ---
Patient Name: Sathya Smith Procedure Date: 08/20/2019 6:33 PM Date of : 1950 Admit Type: Inpatient Age: 69 Gender: Male Attending MD: Angela Duncan MD Procedure: ERCP Providers: Angela Duncan MD Referring MD: Fausto Reynoso Indications: Abnormal endoscopic ultrasound of the biliary system, For therapy of bile duct stone(s), Elevated liver enzymes Medicines: General Anesthesia Complications: No immediate complications. Estimated Blood Loss: Estimated blood loss: none. Procedure: Pre-Anesthesia Assessment: - Prior to the procedure, a History and Physical was performed, and patient medications, allergies and sensitivities were reviewed. The patient's tolerance of previous anesthesia was reviewed. - The risks and benefits of the procedure and the sedation options and risks were discussed with the patient. All questions were answered and informed consent was obtained. - Patient identification and proposed procedure were verified prior to the procedure by the physician and the nurse. The procedure was verified in the procedure room. - Pre-procedure physical examination revealed no contraindications to sedation. After obtaining informed consent, the scope was passed under direct vision. Throughout the procedure, the patient's blood pressure, pulse, and oxygen saturations were monitored continuously. The Scope was introduced through the mouth, and advanced to the duodenum and used to inject contrast into the bile duct. The ERCP was accomplished without difficulty. The patient tolerated the procedure well. Findings: The operations recruiter film was normal. The esophagus was successfully intubated under direct vision. The scope was advanced to a normal major papilla in the descending duodenum without detailed examination of the pharynx, larynx and associated structures, and upper GI tract. The upper GI tract was grossly normal. The ventral pancreatic duct was inadvertently cannulated with the short-nosed traction sphincterotome and guidewire. The guidewire was kept in place to assist in biliary ductal cannulation. A 0.035 inch angled standard wire was passed into the biliary tree. The Fusion OMNI sphincterotome was passed over the guidewire and the bile duct was then deeply cannulated. Contrast was injected. I personally interpreted the bile duct images. Ductal flow of contrast was adequate. Image quality was adequate. Contrast extended to the main bile duct. The main bile duct was mildly dilated. The largest diameter was 9 mm. Opacification of the cystic duct and gallbladder was successful. Biliary sphincterotomy was made with a monofilament traction (standard) sphincterotome using ERBE electrocautery. There was no post-sphincterotomy bleeding. The biliary tree was swept with a 12 mm balloon starting at the bifurcation. Sludge was swept from the duct. One stone was removed. No stones remained. One 5 Fr by 9 cm plastic pancreatic stent with a single external pigtail and no internal flaps was placed into the ventral pancreatic duct. Clear fluid flowed through the stent. The stent was in good position. One 10 Fr by 7 cm plastic biliary stent with a single external flap and a single internal flap was placed into the common bile duct. Bile flowed through the stent. The stent was in good position. Indomethacin 100 mg was given via suppository to decrease the risk of post-ERCP pancreatitis (PEP). Impression: - Choledocholithiasis was found. Complete removal was accomplished by biliary sphincterotomy and balloon extraction. - Patent cystic duct with opacification of the gallbladder hence no evidence of acute cholecystitis. - One plastic pancreatic stent was placed into the ventral pancreatic duct and rectal Indomethacin given to decrease risk of post-ERCP pancreatitis. - One plastic biliary stent was placed into the common bile duct. Recommendation: - [facility] to [facility] care. - Avoid aspirin and nonsteroidal anti-inflammatory medicines for 5 days. - Advance diet as tolerated. - Complete a 7 days course of PO Cipro/Flagyl. - Can resume Coumadin after 48 hrs. - Repeat ERCP in 2 - 3 weeks to remove the stent and given the patient is a nonsurgical candidate for cholecystectomy, will perform EUS guided GB drainage using Axios stent at [facility]. Angela Duncan MD 08/20/2019 7:50:33 PM This report has been signed electronically. Note Initiated On: 08/20/2019 6:33 PM Number of Addenda: 0 I attest to the content of the Intraoperative Record and orders documented therein, exceptions below {[id number]}
--- NOTE | 2019-08-20 21:18 | Anesthesiology Progress Note ---
Date of Service August 20, 2019 Anesthesia Post Procedure Vital Signs Vital Signs: Temp Pulse Pulse Pulse Resp BP BP 08/20/19 21:04 36.6 C 88 20 08/20/19 20:45 36.6 C 94 H 18 08/20/19 20:30 87 18 08/20/19 20:20 36.2 C L 85 20 08/20/19 20:10 84 19 08/20/19 20:02 36.4 C L 92 H 19 08/20/19 16:16 36.6 C 74 20 08/20/19 16:00 76 08/20/19 13:03 36.8 C 75 20 150/66 H 08/20/19 12:18 36.5 C 77 20 152/69 H 08/20/19 11:48 36.5 C 78 20 146/82 H 08/20/19 11:33 36.7 C 79 20 159/79 H 08/20/19 11:16 36.8 C 78 20 150/78 H 08/20/19 10:59 36.4 C L 71 18 157/92 H 08/20/19 10:09 36.5 C 77 20 151/73 H 08/20/19 09:39 36.8 C 78 20 152/80 H 08/20/19 09:24 36.5 C 79 18 134/75 08/20/19 09:07 36.4 C L 77 18 156/78 H 08/20/19 07:54 36.3 C L 79 20 144/77 H 08/20/19 07:07 65 08/20/19 02:41 36.5 C 74 21 148/73 H 08/19/19 23:41 36.4 C L 72 20 126/70 08/19/19 23:38 74 BP Pulse Ox 08/20/19 21:04 172/91 H 95 08/20/19 20:45 176/94 H 94 08/20/19 20:30 171/88 H 94 08/20/19 20:20 176/89 H 92 08/20/19 20:10 163/85 H 94 08/20/19 20:02 168/94 H 93 08/20/19 16:16 154/92 H 98 08/20/19 16:00 08/20/19 13:03 92 08/20/19 12:18 95 08/20/19 11:48 95 06/02/20 11:33 92 08/20/19 11:16 97 08/20/19 10:59 93 08/20/19 10:09 93 08/20/19 09:39 92 08/20/19 09:24 92 08/20/19 09:07 94 08/20/19 07:54 95 08/20/19 07:07 08/20/19 02:41 93 08/19/19 23:41 97 08/19/19 23:38 Transfer of Care Handoff Completed per policy Notes Mental Status: alert / awake / arousable and participated in evaluation Patient Amnestic to Procedure: Yes Nausea / Vomiting: adequately controlled Pain: adequately controlled Airway Patency, RR, SpO2: stable & adequate BP & HR: stable & adequate Hydration State: stable & adequate Anesthetic Complications: no major complications apparent and Pt Satisfied with anesthetic care
[2019-08-20 23:35] LABS: Eosinophils # (auto) 0.01 K/uL (0-0.5); Eosinophils % (auto) 0.1 %; Hematocrit (blood only) 28.8 % (42-52); Hemoglobin 8.9 g/dL (14.0-18.0); Immature Granulocytes # (auto) 0.02 K/uL (0.00-0.02); Immature Granulocytes % (auto) 0.2 %; Lymphocytes # (auto) 0.34 K/uL (1.2-3.4); Lymphocytes % (auto) 3.8 %; Mean Corpuscular Hemoglobin 29.5 pg (25-34); Mean Corpuscular Hgb Conc 30.9 g/dL (32-36); Mean Corpuscular Volume 95.4 fL (80-100); Mean Platelet Volume 9.8 fL (7.4-10.4); Monocytes # (auto) 1.07 K/uL (0.11-0.59); Monocytes % (auto) 11.8 %; Neutrophils # (auto) 7.59 K/uL (1.4-6.5); Neutrophils % (auto) 84.1 %; Nucleated RBC # (auto) 0.08 K/uL (0-0); Nucleated RBC % (auto) 0.9 %; Platelet Count 208 K/uL (130-400); RDW Coefficient of Variation 18.2 % (11.5-14.5); RDW Standard Deviation 62.4 fL (36.4-46.3); Red Blood Count 3.02 M/uL (4.7-6.1); White Blood Count 9.03 K/uL (4.8-10.8)
[2019-08-20 23:51] LABS: BUN Creatinine Ratio 30.5 (10-20); Calcium 8.4 mg/dl (8.5-10.1); Creatinine Clr Calc Pharmacy 36.5 ml/min; Est GFR (African American) 32.7; Est GFR (Non-African American) 28.2; Magnesium 2.2 mg/dl (1.8-2.4); Potassium 3.2 mmol/L (3.5-5.1)
[2019-08-20] MEDS ORDERED: POTASSIUM CHLORIDE 20 MEQ/15 ML UDC PO STA (23:55)
[2019-08-21] MEDS ORDERED: POTASSIUM CHLORIDE 20 MEQ/15 ML UDC PO STA (00:08)
[2019-08-21] MEDS ORDERED: FUROSEMIDE 40 MG in SYRINGE 0 ML IV ONE (00:30)
[2019-08-21] MEDS: metroNIDAZOLE 500 MG/100 ML BAG IV SCH ×3 (06:13→20:23)
[2019-08-21 07:14] LABS: Basophils # (auto) 0.01 K/uL (0-0.2); Basophils % (auto) 0.1 %; Hematocrit (blood only) 29.9 % (42-52); Hemoglobin 9.1 g/dL (14.0-18.0); Immature Granulocytes # (auto) 0.05 K/uL (0.00-0.02); Immature Granulocytes % (auto) 0.5 %; Lymphocytes # (auto) 0.47 K/uL (1.2-3.4); Lymphocytes % (auto) 4.4 %; Mean Corpuscular Hemoglobin 29.4 pg (25-34); Mean Corpuscular Hgb Conc 30.4 g/dL (32-36); Mean Corpuscular Volume 96.8 fL (80-100); Mean Platelet Volume 10.3 fL (7.4-10.4); Monocytes # (auto) 1.19 K/uL (0.11-0.59); Monocytes % (auto) 11.2 %; Neutrophils # (auto) 8.95 K/uL (1.4-6.5); Neutrophils % (auto) 83.8 %; Nucleated RBC # (auto) 0.13 K/uL (0-0); Nucleated RBC % (auto) 1.3 %; Platelet Count 220 K/uL (130-400); RDW Coefficient of Variation 18.3 % (11.5-14.5); Red Blood Count 3.09 M/uL (4.7-6.1); White Blood Count 10.67 K/uL (4.8-10.8)
[2019-08-21 07:21] LABS: INR 1.7 (0.9-1.1); Prothrombin Time 17.9 Seconds (9.0-12.0)
--- NOTE | 2019-08-21 07:31 | XRay Report ---
XR chest 1V portable CLINICAL HISTORY: Shortness of breath COMPARISON STUDY: 08/19/2019 FINDINGS: The cardiac silhouette is enlarged. There is a left subclavian pacer/defibrillator. There i s worsening congestive failure with mild pulmonary edema. Small pleural effusions are suspected. Basi lar airspace opacities while nonspecific likely represent atelectasis.[ IMPRESSION: Worsening congestive failure. ACT 112: Negative or not required by law. Electronically signed by: Moreno London M.D. 08/21/2019 7:30 AM
[2019-08-21 07:44] LABS: Albumin Level 3.3 gm/dl (3.4-5.0); BUN Creatinine Ratio 29.3 (10-20); Bilirubin Direct 0.8 mg/dl (0-0.2); Calcium 8.3 mg/dl (8.5-10.1); Creatinine Clr Calc Pharmacy 31.8 ml/min; Est GFR (Non-African American) 24.2; Magnesium 2.2 mg/dl (1.8-2.4)
[2019-08-21 07:52] LABS: Bilirubin,Total 1.4 mg/dl (0.2-1); Total Protein 6.6 gm/dl (6.4-8.2)
[2019-08-21] MEDS: CIPROFLOXACIN / D5W 200 MG/100 ML BAG IV SCH ×2 (09:08→20:23)
[2019-08-21] MEDS: VENLAFAXINE HCL XR 150 MG CAPXR PO SCH ×2 (09:09→20:23)
[2019-08-21] MEDS: AMIODARONE 200 MG TAB PO SCH ×2 (09:09→20:23)
[2019-08-21] MEDS: METOPROLOL SUCC 25MG EXT REL TAB PO SCH ×2 (09:09→20:23)
[2019-08-21] MEDS: PANTOprazole 40 MG TAB PO SCH ×2 (09:10→20:23)
[2019-08-21] MEDS: allopurinoL 300 MG TAB PO SCH (09:10)
[2019-08-21] MEDS: allopurinoL 100 MG TAB PO SCH (09:10)
[2019-08-21] MEDS: INSULIN ASPART 100 UNITS/ML 3 ML PEN SC SCH ×4 (09:10→20:45)
[2019-08-21] MEDS: BUMETANIDE 1 MG TAB PO SCH (09:10)
[2019-08-21] MEDS: INSULIN GLARGINE SOLOSTAR 100 UNITS/ML 3 ML PEN SC SCH (09:11)
--- NOTE | 2019-08-21 16:19 | Hospitalist Progress Note ---
Date of Service August 21, 2019 Assessment & Plan (1) Gallstones with biliary obstruction: Choledocholithiasis Transaminitis S/P ERCP with sphincterotomy and biliary/pancreatic stent placement on 08/20/19 Appreciate GI Input Continue Cipro/Flagyl LFTs trending down Full liquid diet today Advance diet as tolerated Needs follow up with GI as outpatient (2) SOB (shortness of breath): Acute systolic and diastolic CHF exacerbation CXR:Interval development of mild congestive change. Cardiomegaly and small bilateral pleural effusions persist. H/O ischemic cardiomyopathy with EF of 35% in 2019 S/P AICD-ICD Interrogation completed CTA on 08/13/19: No evidence of pulmonary embolus. Cardiomegaly with findings of a pericardial effusion. Maximum thickness of 1.1 cm. Bilateral pleural effusions with mild consolidative change left lower lobe. Entresto held currently Received IV Lasix Appreciate Cardiology Input and recommendation Continue supplemental oxygen as needed Continue Bumex 4mg daily Continue fluid restriction Monitor I/Os Pericardial Effusion Incidental finding on CT--as above Nothing to suggest tamponade Symptomatic anemia Positive fecal occult in the emergency room Hemoglobin dropped from prior admission despite being off Coumadin Received 2 units of blood transfusion BUN mildly elevated, total bilirubin within normal limits Aspirin, coumadin held Appreciate GI input Hb stable Microscopic Hematuria No gross hematuria noted Repeat UA: No hematuria Consider Urology Input if needed Resolved Stroke like Symptoms/Vertigo DD: Hypoglycemia, ICD problems, complex migraine CT head:No acute intracranial findings. No significant change in appearance of the brain. Carotid Doppler: 50-69% stenosis of the origin/proximal left internal carotid artery. Neurology Consulted -no further recommendation as symptoms are not due to Doppler findings in neck Resume antiplatelet drugs (Consider staring Plavix instead of Aspirin) as able Vs consideration for possible watchman device Acute Kidney Injury on CKD III Baseline Cr:1.4-1.7 Due to diuretics Entresto held Monitor renal function Consider Nephrology Eval if renal function continues to worsen CAD Aspirin on hold Continue Lipitor, metoprolol Entresto held due to BRENT H/O atrial fibrillation Rate controlled Currently off anticoagulation Continue amiodarone, metoprolol, digoxin Resume anticoagulation as soon as possible Monitor INR Hyperlipidemia on statin DM II Hypoglycemic prior to admission Hb A1C:6.22 Jul 2019 Continue insulin therapy Glycemic pharmacy consult. Hypokalemia Likely due to medications Replete electrolytes as needed ANTOINETTE on CPAP DVT Px: Coumadin to be resumed as soon as able SCDs RE occult GI/symptomatic anemia Code Status Full code Disposition Expect to discharge home when medically stable (3) Metabolic encephalopathy: Admission and Anticipated Discharge Date Admission Date: August 11, 2019 Subjective Patient is seen and examined at bedside States feeling tired today Received IV Lasix overnight Denies any significant abdominal pain Also denies any chest pain, SOB, dizziness, nausea Offers no other complaints Sitting in chair comfortably this morning Review of Systems Review of Systems: All systems reviewed & are unremarkable except as noted in HPI & below Physical Exam Physical Exam: Physical Exam: Vitals signs as noted above General Appearance:Obese, no apparent distress Head: normocephalic, Atraumatic Eyes: normal inspection, EOMI Neck: supple, Trachea midline Respiratory/Chest: Decreased breath sounds at bases , +Basal Crackles Cardiovascular: S1, S2, No murmur Abdomen/GI:Soft, mild generalized tender, Bowel sounds present Extremities/Musculoskelatal:normal inspection, Improved pedal edema, Chronic B/L venous stasis changes Neurologic/Psych:AAOX3, grossly no focal neurological deficits Skin: normal color, warm Results & Data Results & Data ([facility]) Vital Signs (Past 12 Hours) Vital Signs Temp Pulse Pulse Pulse Resp BP BP 08/21/19 11:27 36.6 C 85 24 136/71 08/21/19 07:59 36.3 C L 83 18 160/74 H 08/21/19 07:25 82 Pulse Ox 08/21/19 11:27 98 08/21/19 07:59 97 08/21/19 07:25 Laboratory Results Short CBC 08/20/19 08/21/19 Range/Units 23:18 06:57 WBC 9.03 10.67 (4.8-10.8) K/uL Hgb 8.9 L 9.1 L (14.0-18.0) g/dL Hct 28.8 L 29.9 L (42-52) % Plt Count 208 220 (130-400) K/uL BMP 08/20/19 08/21/19 23:18 06:57 Sodium 138 138 Potassium 3.2 L 4.0 D Chloride 97 L 97 L Carbon Dioxide 31 32 BUN 70 H 76 H Creatinine 2.28 H 2.59 H D Glucose 168 H 172 H Calcium 8.4 L 8.3 L Liver Function 08/21/19 Range/Units 06:57 Total Bilirubin 1.4 H (0.2-1) mg/dl Direct Bilirubin 0.8 H (0-0.2) mg/dl AST 630 H (15-37) U/L ALT 929 H (12-78) U/L Alkaline Phosphatase 143 H (45-117) U/L Albumin 3.3 L (3.4-5.0) gm/dl
--- NOTE | 2019-08-21 17:01 | Gastroenterology Progress Note ---
Date of Service August 21, 2019 Assessment & Plan (1) Choledocholithiasis: 69 y/o male with choledocholithiasis, s/p stone removal with placement of one plastic stent in CBD and one stent in the PD. Today feels improved; tolerating diet. Abd is soft. LFTs are improved. - Can continue regular diet - Can resume Coumadin tomorrow - Can resume ASA today - Complete 7 day course of Cipro/Flagyl - No NSAIDs for 5 days - Repeat ERCP 2-3 weeks with stent removal and EUS guided GB drainage and p lacement of Axios stent at [facility] Recall Gi if needed. Admission and Anticipated Discharge Date Admission Date: August 11, 2019 Supervising Physician Co-Signing Physician Notes I performed a history and physical examination of the patient today, including specifically on physical exam - soft abdomen. I have discussed the patient's management with the advanced practitioner. Please refer to the nurse practitioner's note for the documented findings and plan of care. Subjective Pt seen and examined. Doing well. No acute events overnight. Tolerating diet. Brown BMs. Abd improved, no n/v, chest pain, fever. Review of Systems Respiratory: as per Subjective / HPI and + cough; no dyspnea Gastrointestinal: as per Subjective / HPI Integumentary: no jaundice Physical Exam Constitutional: well developed and well nourished; no acute distress Eyes: + anicteric sclerae Respiratory: normal respiratory effort Cardiovascular: Rate/Rhythm: regular rate and regular rhythm Gastrointestinal (Abdomen): Inspection/Auscultation: abdomen normal to inspection and normal bowel sounds; abdomen not distended Percussion/Palpation: abdomen soft; abdomen nontender Skin: no rashes, warm and dry no jaundice Psychiatric: Orientation: alert Results & Data ([facility]) Vital Signs (Past 12 Hours) Vital Signs Temp Pulse Pulse Pulse Resp BP BP 08/21/19 16:40 36.7 C 80 18 144/73 H 08/21/19 16:00 74 08/21/19 11:27 36.6 C 85 24 136/71 08/21/19 07:59 36.3 C L 83 18 160/74 H 08/21/19 07:25 82 Pulse Ox 08/21/19 16:40 91 08/21/19 16:00 08/21/19 11:27 98 08/21/19 07:59 97 08/21/19 07:25 Laboratory Results 08/21/19 08/21/19 08/21/19 Range/Units 16:16 11:19 07:28 WBC (4.8-10.8) K/uL RBC (4.7-6.1) M/uL Hgb (14.0-18.0) g/dL Hct (42-52) % MCV (80-100) fL MCH (25-34) pg MCHC (32-36) g/dL RDW Std Deviation (36.4-46.3) fL RDW Coeff of Oje (11.5-14.5) % Plt Count (130-400) K/uL MPV (7.4-10.4) fL Immature Gran % (Auto) % Neut % (Auto) % Lymph % (Auto) % Osborne % (Auto) % Eos % (Auto) % Baso % (Auto) % Immature Gran # (Auto) (0.00-0.02) K/uL Neut # (Auto) (1.4-6.5) K/uL Lymph # (Auto) (1.2-3.4) K/uL Osborne # (Auto) (0.11-0.59) K/uL Eos # (Auto) (0-0.5) K/uL Baso # (Auto) (0-0.2) K/uL Absolute Nucleated RBC (0-0) K/uL Nucleated RBC % (auto) % PT (9.0-12.0) Seconds INR (0.9-1.1) Sodium (136-145) mmol/L Potassium (3.5-5.1) mmol/L Chloride (98-107) mmol/L Carbon Dioxide (21-32) mmol/L Anion Gap (3-11) BUN (7-18) mg/dl Creatinine (0.6-1.4) mg/dl Est Cr Clr Drug Dosing ml/min Est GFR ( Amer) Est GFR (Non-Af Amer) BUN/Creatinine Ratio (10-20) Glucose (70-99) mg/dl POC Glucose 171 H 174 H 171 H (70-99) mg/dl Calcium (8.5-10.1) mg/dl Magnesium (1.8-2.4) mg/dl Total Bilirubin (0.2-1) mg/dl Direct Bilirubin (0-0.2) mg/dl AST (15-37) U/L ALT (12-78) U/L Alkaline Phosphatase (45-117) U/L Total Protein (6.4-8.2) gm/dl Albumin (3.4-5.0) gm/dl 08/21/19 08/21/19 08/21/19 Range/Units 06:57 06:57 06:57 WBC 10.67 (4.8-10.8) K/uL RBC 3.09 L (4.7-6.1) M/uL Hgb 9.1 L (14.0-18.0) g/dL Hct 29.9 L (42-52) % MCV 96.8 (80-100) fL MCH 29.4 (25-34) pg MCHC 30.4 L (32-36) g/dL RDW Std Deviation 64.0 H (36.4-46.3) fL RDW Coeff of Joe 18.3 H (11.5-14.5) % Plt Count 220 (130-400) K/uL MPV 10.3 (7.4-10.4) fL Immature Gran % (Auto) 0.5 % Neut % (Auto) 83.8 % Lymph % (Auto) 4.4 % Osborne % (Auto) 11.2 % Eos % (Auto) 0.0 % Baso % (Auto) 0.1 % Immature Gran # (Auto) 0.05 H (0.00-0.02) K/uL Neut # (Auto) 8.95 H (1.4-6.5) K/uL Lymph # (Auto) 0.47 L (1.2-3.4) K/uL Osborne # (Auto) 1.19 H (0.11-0.59) K/uL Eos # (Auto) 0.00 (0-0.5) K/uL Baso # (Auto) 0.01 (0-0.2) K/uL Absolute Nucleated RBC 0.13 H (0-0) K/uL Nucleated RBC % (auto) 1.3 % PT 17.9 H (9.0-12.0) Seconds INR 1.7 H (0.9-1.1) Sodium 138 (136-145) mmol/L Potassium 4.0 D (3.5-5.1) mmol/L Chloride 97 L (98-107) mmol/L Carbon Dioxide 32 (21-32) mmol/L Anion Gap 9.0 (3-11) BUN 76 H (7-18) mg/dl Creatinine 2.59 H D (0.6-1.4) mg/dl Est Cr Clr Drug Dosing 31.8 ml/min Est GFR ( Amer) 28.0 Est GFR (Non-Af Amer) 24.2 BUN/Creatinine Ratio 29.3 H (10-20) Glucose 172 H (70-99) mg/dl POC Glucose (70-99) mg/dl Calcium 8.3 L (8.5-10.1) mg/dl Magnesium 2.2 (1.8-2.4) mg/dl Total Bilirubin 1.4 H (0.2-1) mg/dl Direct Bilirubin 0.8 H (0-0.2) mg/dl AST 630 H (15-37) U/L ALT 929 H (12-78) U/L Alkaline Phosphatase 143 H (45-117) U/L Total Protein 6.6 (6.4-8.2) gm/dl Albumin 3.3 L (3.4-5.0) gm/dl 08/20/19 08/20/19 08/20/19 Range/Units 23:18 23:18 21:23 WBC 9.03 (4.8-10.8) K/uL RBC 3.02 L (4.7-6.1) M/uL Hgb 8.9 L (14.0-18.0) g/dL Hct 28.8 L (42-52) % MCV 95.4 (80-100) fL MCH 29.5 (25-34) pg MCHC 30.9 L (32-36) g/dL RDW Std Deviation 62.4 H (36.4-46.3) fL RDW Coeff of Joe 18.2 H (11.5-14.5) % Plt Count 208 (130-400) K/uL MPV 9.8 (7.4-10.4) fL Immature Gran % (Auto) 0.2 % Neut % (Auto) 84.1 % Lymph % (Auto) 3.8 % Osborne % (Auto) 11.8 % Eos % (Auto) 0.1 % Baso % (Auto) 0.0 % Immature Gran # (Auto) 0.02 (0.00-0.02) K/uL Neut # (Auto) 7.59 H (1.4-6.5) K/uL Lymph # (Auto) 0.34 L (1.2-3.4) K/uL Osborne # (Auto) 1.07 H (0.11-0.59) K/uL Eos # (Auto) 0.01 (0-0.5) K/uL Baso # (Auto) 0.00 (0-0.2) K/uL Absolute Nucleated RBC 0.08 H (0-0) K/uL Nucleated RBC % (auto) 0.9 % PT (9.0-12.0) Seconds INR (0.9-1.1) Sodium 138 (136-145) mmol/L Potassium 3.2 L (3.5-5.1) mmol/L Chloride 97 L (98-107) mmol/L Carbon Dioxide 31 (21-32) mmol/L Anion Gap 10.0 (3-11) BUN 70 H (7-18) mg/dl Creatinine 2.28 H (0.6-1.4) mg/dl Est Cr Clr Drug Dosing 36.5 ml/min Est GFR ( Amer) 32.7 Est GFR (Non-Af Amer) 28.2 BUN/Creatinine Ratio 30.5 H (10-20) Glucose 168 H (70-99) mg/dl POC Glucose 196 H (70-99) mg/dl Calcium 8.4 L (8.5-10.1) mg/dl Magnesium 2.2 (1.8-2.4) mg/dl Total Bilirubin (0.2-1) mg/dl Direct Bilirubin (0-0.2) mg/dl AST (15-37) U/L ALT (12-78) U/L Alkaline Phosphatase (45-117) U/L Total Protein (6.4-8.2) gm/dl Albumin (3.4-5.0) gm/dl 08/20/19 Range/Units 20:05 WBC (4.8-10.8) K/uL RBC (4.7-6.1) M/uL Hgb (14.0-18.0) g/dL Hct (42-52) % MCV (80-100) fL MCH (25-34) pg MCHC (32-36) g/dL RDW Std Deviation (36.4-46.3) fL RDW Coeff of Joe (11.5-14.5) % Plt Count (130-400) K/uL MPV (7.4-10.4) fL Immature Gran % (Auto) % Neut % (Auto) % Lymph % (Auto) % Osborne % (Auto) % Eos % (Auto) % Baso % (Auto) % Immature Gran # (Auto) (0.00-0.02) K/uL Neut # (Auto) (1.4-6.5) K/uL Lymph # (Auto) (1.2-3.4) K/uL Osborne # (Auto) (0.11-0.59) K/uL Eos # (Auto) (0-0.5) K/uL Baso # (Auto) (0-0.2) K/uL Absolute Nucleated RBC (0-0) K/uL Nucleated RBC % (auto) % PT (9.0-12.0) Seconds INR (0.9-1.1) Sodium (136-145) mmol/L Potassium (3.5-5.1) mmol/L Chloride (98-107) mmol/L Carbon Dioxide (21-32) mmol/L Anion Gap (3-11) BUN (7-18) mg/dl Creatinine (0.6-1.4) mg/dl Est Cr Clr Drug Dosing ml/min Est GFR ( Amer) Est GFR (Non-Af Amer) BUN/Creatinine Ratio (10-20) Glucose (70-99) mg/dl POC Glucose 184 H (70-99) mg/dl Calcium (8.5-10.1) mg/dl Magnesium (1.8-2.4) mg/dl Total Bilirubin (0.2-1) mg/dl Direct Bilirubin (0-0.2) mg/dl AST (15-37) U/L ALT (12-78) U/L Alkaline Phosphatase (45-117) U/L Total Protein (6.4-8.2) gm/dl Albumin (3.4-5.0) gm/dl
[2019-08-21] MEDS: DIGOXIN 0.125 MG TAB PO SCH (17:12)
[2019-08-21] MEDS: ASPIRIN 81 MG ECTAB PO SCH (20:23)
[2019-08-22] MEDS: metroNIDAZOLE 500 MG/100 ML BAG IV SCH (05:41)
[2019-08-22 05:59] LABS: Hematocrit (blood only) 28.7 % (42-52); Hemoglobin 8.6 g/dL (14.0-18.0); Mean Corpuscular Hemoglobin 28.3 pg (25-34); Mean Corpuscular Volume 94.4 fL (80-100); Mean Platelet Volume 9.6 fL (7.4-10.4); Nucleated RBC # (auto) 0.11 K/uL (0-0); Nucleated RBC % (auto) 1.1 %; Platelet Count 196 K/uL (130-400); RDW Coefficient of Variation 18.2 % (11.5-14.5); RDW Standard Deviation 61.9 fL (36.4-46.3); Red Blood Count 3.04 M/uL (4.7-6.1); White Blood Count 9.69 K/uL (4.8-10.8)
[2019-08-22 06:08] LABS: INR 1.8 (0.9-1.1); Prothrombin Time 18.4 Seconds (9.0-12.0)
[2019-08-22 06:54] LABS: Albumin Level 3.2 gm/dl (3.4-5.0); BUN Creatinine Ratio 33.9 (10-20); Bilirubin,Total 1.5 mg/dl (0.2-1); Creatinine Clr Calc Pharmacy 38.5 ml/min; Est GFR (African American) 34.9; Est GFR (Non-African American) 30.1; Globulin 3.1 gm/dl (2.5-4.0); Potassium 3.1 mmol/L (3.5-5.1); Total Protein 6.3 gm/dl (6.4-8.2)
[2019-08-22] MEDS: allopurinoL 100 MG TAB PO SCH (08:03)
[2019-08-22] MEDS: BUMETANIDE 1 MG TAB PO SCH (08:04)
[2019-08-22] MEDS: allopurinoL 300 MG TAB PO SCH (08:04)
[2019-08-22] MEDS: METOPROLOL SUCC 25MG EXT REL TAB PO SCH ×2 (08:05→20:53)
[2019-08-22] MEDS: ASPIRIN 81 MG ECTAB PO SCH (08:05)
[2019-08-22] MEDS: PANTOprazole 40 MG TAB PO SCH ×2 (08:05→20:52)
[2019-08-22] MEDS: CIPROFLOXACIN / D5W 200 MG/100 ML BAG IV SCH (08:06)
[2019-08-22] MEDS: AMIODARONE 200 MG TAB PO SCH ×2 (08:06→20:52)
[2019-08-22] MEDS: INSULIN ASPART 100 UNITS/ML 3 ML PEN SC SCH ×4 (08:11→21:07)
[2019-08-22] MEDS ORDERED: POTASSIUM CHLORIDE 20 MEQ TABCR PO ONE (08:45)
[2019-08-22] MEDS: INSULIN GLARGINE SOLOSTAR 100 UNITS/ML 3 ML PEN SC SCH (08:56)
[2019-08-22] MEDS: VENLAFAXINE HCL XR 150 MG CAPXR PO SCH ×2 (08:58→20:53)
--- NOTE | 2019-08-22 09:34 | XRay Report ---
XR chest 1V portable CLINICAL HISTORY: chf dyspnea COMPARISON STUDY: 08/20/2019 FINDINGS: Improving congestive heart failure. The heart remains enlarged. Diminished prominence of th e pulmonary vasculature. Small bilateral pleural effusions unchanged. IMPRESSION: Improving congestive heart failure. ACT 112: Negative or not required by law. The above report was generated using voice recognition software. It may contain grammatical, syntax or spelling errors. Electronically signed by: Delmer Woodward M.D. 08/22/2019 9:32 AM
--- NOTE | 2019-08-22 09:58 | Pharmacy Report ---
Glycemic Control Progress Note - Date of Service August 22, 2019 - Scope Glycemic Pharmacist consulted for glycemic control to write orders per [facility] inpatient glycemic control protocol. - Objective Accuchecks BSG(last 24 hours):: 08/21/19 08/21/19 08/21/19 11:19 16:16 20:34 Glucose POC Glucose 174 H 171 H 146 H 08/22/19 08/22/19 05:33 07:09 Glucose 132 H POC Glucose 134 H - Recent Pertinent Medications The patient is currently receiving: * Basal insulin: Lantus 9 units every 24 hours * Correctional Insulin: Novolog Correction per scale ACHS Goal Range: Low 110mg/dL - High 140 mg/dL Correction Factor: 25 mg/dL/unit * Prandial insulin: Per carb ratio of 1 unit per 9 grams CHO consumed - Outpatient Anti-Diabetic Meds Lantus 45 units qAM Novolog scale - Assessment & Plan ASSESSMENT: * See progress note from 08/11/2019 for more background info, in short: * Pt receiving SQ basal bolus insulin regimen for hyperglycemia secondary to baseline DM (outpatient regimen on hold). Patient on ciprofloxacin and Flagyl for infection. * Patient is currently receiving an average of 12 units of insulin per day * 9 units of basal insulin * 3 units of prandial/correctional insulin * BSGs ranging 146 - 174 mg/dl over the past 24hrs * Changes needed to insulin regimen: * AM Fasting BSG = 134 mg/dl. This is in goal range for patient based on inpatient targets and co-morbidities. The patient's fastings bounce between 130s and the 170s. This is reasonable for his age and condition. * Post-prandial BSGs are in range therefore no changes needed to CF/CR. * Total daily dose = ~20 units when eating and around 11-13 units when NPO. PLAN FOR INPATIENT GLYCEMIC CONTROL: * Basal insulin * Lantus 9 units SQ qAM * Bolus insulin * NovoLog per scale ACHS or Q6hrs while NPO * Goal Range: Low 110 mg/dL - High 140 mg/dL * Correction Factor: 25 mg/dL/unit * Nutritional / Prandial insulin per carb ratio of 1 unit per 9 grams CHO consumed RECOMMENDATIONS FOR DISCHARGE: * Patient's insulin requirements inhouse are drastically different than at home. * Since patient came in with hypoglycemia,recommend working with patient to lower insulin doses and perhaps schedule Novolog with specific meals so there is not just a sliding scale. Thank you.
[2019-08-22] MEDS: PROMETHAZINE HCL 12.5 MG in SODIUM CHLORIDE 0.9% 50 ML IV PRN ×2 (12:13→20:08)
--- NOTE | 2019-08-22 13:15 | Cardiology Progress Note ---
Date of Service August 22, 2019 Assessment & Plan (1) Systolic and diastolic CHF, chronic: -the patient appears euvolemic at this time. -would continue diuresis with Bumex 4mg daily. (2) AICD (automatic cardioverter/defibrillator) present: -single-chamber ICD. -proper function at time of last interrogation. -no defibrillations since February 2019. (3) Atrial fibrillation, chronic: -anticoagulation has been restarted. (4) Ischemic cardiomyopathy: -left ventricular ejection fraction of 25-30% on most recent evaluation. (5) Gallstones with biliary obstruction: -choledocholithiasis with stone removal and placement of stents. Admission and Anticipated Discharge Date Admission Date: August 11, 2019 Subjective Resting comfortably at the bedside without complaints of chest pain, dyspnea, or palpitations. Physical Exam Physical Exam: In general this is a well-developed well-nourished white male in no acute distress. HEENT exam is negative. Neck reveals normal carotid upstrokes without bruits. No jugular venous distension. There is no thyromegaly. Cardiovascular exam reveals a regular rhythm with a normal S1 and S2. No murmurs, S3, or S4 are noted. Lungs are clear without rales, rhonchi, or wheezes. Abdomen is soft without bruits. Extremities reveal intact radial artery pulses bilaterally. There is 1+ nonpitting edema of both lower extremities. Diffuse varicosities and hyperpigmentation changes noted. Results & Data ([facility]) Vital Signs (Past 12 Hours) Vital Signs Temp Pulse Pulse Resp BP Pulse Ox Pulse Ox 08/22/19 12:15 36.9 C 79 22 132/75 94 08/22/19 09:51 74 08/22/19 09:46 95 08/22/19 07:55 37.0 C 94 H 18 147/77 H 96 08/22/19 03:47 36.4 C L 77 18 112/64 93 Diagnostic Findings equipment monitor phototypesetting notes rate controlled atrial fibrillation. PG Care Time/CCT Total # of Minutes Spent Total Time Spent with Patient: Total time spent is greater than 50% in coordination of care (as documented) at patient's floor/unit and/or counseling patient: Coding Level of Care Code 41278 Subseq Hosp Care Lvl 3 Diagnoses Systolic and diastolic CHF, chronic I50.42 AICD (automatic cardioverter/defibrillator) present Z95.810 Atrial fibrillation, chronic I48.2 Ischemic cardiomyopathy I25.5 Gallstones with biliary obstruction K80.21
[2019-08-22] MEDS: metroNIDAZOLE 500 MG TAB PO SCH ×2 (14:00→20:52)
[2019-08-22] MEDS ORDERED: WARFARIN SOD 5 MG TAB PO SCH (16:00)
--- NOTE | 2019-08-22 17:31 | Hospitalist Progress Note ---
Date of Service August 22, 2019 Assessment & Plan (1) Gallstones with biliary obstruction: Choledocholithiasis Transaminitis S/P ERCP with sphincterotomy and biliary/pancreatic stent placement on 08/20/19 Appreciate GI Input Continue Cipro/Flagyl LFTs trending down Continue low fat diet as tolerated Need to complete 7-day course of antibiotics. Needs follow up with GI as outpatient (2) SOB (shortness of breath): Acute systolic and diastolic CHF exacerbation CXR:Interval development of mild congestive change. Cardiomegaly and small bilateral pleural effusions persist. H/O ischemic cardiomyopathy with EF of 35% in 2019 S/P AICD-ICD Interrogation completed CTA on 08/13/19: No evidence of pulmonary embolus. Cardiomegaly with findings of a pericardial effusion. Maximum thickness of 1.1 cm. Bilateral pleural effusions with mild consolidative change left lower lobe. Entresto held currently Received IV Lasix Appreciate Cardiology Input and recommendation Continue supplemental oxygen as needed Continue Bumex 4mg daily Continue fluid restriction Monitor I/Os CXR today showed improved congestion Pericardial Effusion Incidental finding on CT--as above Nothing to suggest tamponade Symptomatic anemia Positive fecal occult in the emergency room Hemoglobin dropped from prior admission despite being off Coumadin Received 2 units of blood transfusion BUN mildly elevated, total bilirubin within normal limits Resumed Aspirin, Coumadin Appreciate GI input Monitor CBC Urinary Retention Continue pickering for now Voiding trail tomorrow Bladder scan PRN Microscopic Hematuria No gross hematuria noted Repeat UA: No hematuria Resolved Stroke like Symptoms/Vertigo DD: Hypoglycemia, ICD problems, complex migraine CT head:No acute intracranial findings. No significant change in appearance of the brain. Carotid Doppler: 50-69% stenosis of the origin/proximal left internal carotid artery. Neurology Consulted -no further recommendation as symptoms are not due to Doppler findings in neck Continue aspirin, Coumadin Acute Kidney Injury on CKD III Baseline Cr:1.4-1.7 Due to diuretics/Urinary retention Entresto held Monitor renal function Cr: 2.75>>2.59>>2.16 check renal USD CAD Continue Aspirin, Lipitor, metoprolol Entresto held due to BRENT H/O atrial fibrillation Rate controlled Currently off anticoagulation Continue amiodarone, metoprolol, digoxin Resume coumadin today Monitor INR:1.8 Hyperlipidemia on statin DM II Hypoglycemic prior to admission Hb A1C:6.22 Jul 2019 Continue insulin therapy Glycemic pharmacy consult. Hypokalemia Likely due to diuretics/poor oral intake Replete electrolytes as needed ANTOINETTE on CPAP DVT Px: Coumadin SCDs RE occult GI/symptomatic anemia Code Status Full code Disposition Expect to discharge home when medically stable (3) Metabolic encephalopathy: Admission and Anticipated Discharge Date Admission Date: August 11, 2019 Subjective Patient is seen and examined at bedside Poor appetite Had an episode of vomiting earlier today Chest x-ray suggestive of improved condition Patient is eager to get discharged Denies any chest pain, shortness of breath, dizziness, abdominal pain Requiring 4 L of supplemental oxygen to maintain saturation Review of Systems Review of Systems: All systems reviewed & are unremarkable except as noted in HPI & below Physical Exam Physical Exam: Physical Exam: Vitals signs as noted above General Appearance:Obese, no apparent distress Head: normocephalic, Atraumatic Eyes: normal inspection, EOMI Neck: supple, Trachea midline Respiratory/Chest: Decreased breath sounds at bases , +Basal Crackles Cardiovascular: S1, S2, No murmur Abdomen/GI:Soft, mild generalized tender, Bowel sounds present Extremities/Musculoskelatal:normal inspection, Improved pedal edema, Chronic B/L venous stasis changes Neurologic/Psych:AAOX3, grossly no focal neurological deficits Skin: normal color, warm Results & Data Results & Data ([facility]) Vital Signs (Past 12 Hours) Vital Signs Temp Pulse Pulse Resp BP Pulse Ox Pulse Ox 08/22/19 16:00 36.6 C 73 18 143/77 H 96 08/22/19 12:15 36.9 C 79 22 132/75 94 08/22/19 09:51 74 08/22/19 09:46 95 08/22/19 07:55 37.0 C 94 H 18 147/77 H 96 Laboratory Results Short CBC 08/22/19 Range/Units 05:33 WBC 9.69 (4.8-10.8) K/uL Hgb 8.6 L (14.0-18.0) g/dL Hct 28.7 L (42-52) % Plt Count 196 (130-400) K/uL BMP 08/22/19 05:33 Sodium 137 Potassium 3.1 L D Chloride 96 L Carbon Dioxide 33 H BUN 73 H Creatinine 2.16 H D Glucose 132 H Calcium 8.0 L Liver Function 08/22/19 Range/Units 05:33 Total Bilirubin 1.5 H (0.2-1) mg/dl AST 353 H (15-37) U/L ALT 737 H (12-78) U/L Alkaline Phosphatase 132 H (45-117) U/L Albumin 3.2 L (3.4-5.0) gm/dl
[2019-08-22] MEDS: CIPROFLOXACIN 500 MG TAB PO SCH (20:53)
[2019-08-23] MEDS: metroNIDAZOLE 500 MG TAB PO SCH ×3 (05:17→20:59)
[2019-08-23 07:53] LABS: Hematocrit (blood only) 30.3 % (42-52)
[2019-08-23 07:59] LABS: Prothrombin Time 20.7 Seconds (9.0-12.0)
[2019-08-23 08:21] LABS: Albumin Level 3.1 gm/dl (3.4-5.0); BUN Creatinine Ratio 33.7 (10-20); Calcium 8.7 mg/dl (8.5-10.1); Creatinine Clr Calc Pharmacy 48.1 ml/min; Est GFR (Non-African American) 39.7; Potassium 3.5 mmol/L (3.5-5.1)
[2019-08-23 08:23] LABS: Bilirubin,Total 1.5 mg/dl (0.2-1); Globulin 3.2 gm/dl (2.5-4.0); Total Protein 6.3 gm/dl (6.4-8.2)
--- NOTE | 2019-08-23 08:42 | Ultrasound Report ---
US renal/blad retro comp HISTORY: Renal insufficiency BRENT COMPARISON: None. FINDINGS: Right kidney: Maximum dimension 11.8 cm. No evidence for hydronephrosis. Moderate cortical scarring Left kidney: Maximum dimension 12.1 cm. No evidence for hydronephrosis. Mild cortical scarring. Norm al corticomedullary differentiation and cortical thickness. Bladder: No bladder wall thickening. The bilateral ureteral jets were identified. IMPRESSION: 1. No evidence for hydronephrosis. 2. Mild to moderate cortical scarring of the right and to a lesser extent left kidney. ACT 112: Negative or not required by law. The above report was generated using voice recognition software. It may contain grammatical, syntax or spelling errors. Electronically signed by: Delmer Woodward M.D. 08/23/2019 8:41 AM
[2019-08-23] MEDS: INSULIN ASPART 100 UNITS/ML 3 ML PEN SC SCH ×4 (08:55→20:56)
[2019-08-23] MEDS: allopurinoL 300 MG TAB PO SCH (08:57)
[2019-08-23] MEDS: PANTOprazole 40 MG TAB PO SCH ×2 (08:57→20:58)
[2019-08-23] MEDS: ASPIRIN 81 MG ECTAB PO SCH (08:57)
[2019-08-23] MEDS: BUMETANIDE 1 MG TAB PO SCH (08:58)
[2019-08-23] MEDS: METOPROLOL SUCC 25MG EXT REL TAB PO SCH ×2 (08:58→20:57)
[2019-08-23] MEDS: AMIODARONE 200 MG TAB PO SCH ×2 (08:58→20:56)
[2019-08-23] MEDS: CIPROFLOXACIN 500 MG TAB PO SCH (08:58)
[2019-08-23] MEDS: VENLAFAXINE HCL XR 150 MG CAPXR PO SCH ×2 (08:59→20:59)
[2019-08-23] MEDS: allopurinoL 100 MG TAB PO SCH (08:59)
[2019-08-23] MEDS: PROMETHAZINE HCL 12.5 MG in SODIUM CHLORIDE 0.9% 50 ML IV PRN (09:32)
--- NOTE | 2019-08-23 09:56 | Pharmacy Report ---
Glycemic Control Progress Note - Date of Service August 23, 2019 - Scope Glycemic Pharmacist consulted for glycemic control to write orders per [facility] inpatient glycemic control protocol. - Objective Accuchecks BSG(last 24 hours):: 08/22/19 08/22/19 08/22/19 11:16 16:47 20:25 Glucose POC Glucose 126 H 103 H 101 H 08/23/19 08/23/19 07:23 07:57 Glucose 107 H POC Glucose 105 H - Recent Pertinent Medications The patient is currently receiving: * Basal insulin: Lantus 9 units every 24 hours * Correctional Insulin: Novolog Correction per scale ACHS Goal Range: Low 110 mg/dL - High 140 mg/dL Correction Factor: 25 mg/dL/unit * Prandial insulin: Per carb ratio of 1 unit per 9 grams CHO consumed - Outpatient Anti-Diabetic Meds lantus 45 units qAM Novolog sliding scale - Assessment & Plan ASSESSMENT: * See progress note from 08/11/19 for more background info, in short: * Pt receiving SQ basal bolus insulin regimen for hyperglycemia secondary to baseline DM (outpatient regimen on hold) and on ciprofloxacin/Flagyl. * Patient is currently receiving an average of 13 units of insulin per day * 9 units of basal insulin * 4 units of prandial/correctional insulin * BSGs ranging 101 - 134 mg/dl over the past 24hrs * Changes needed to insulin regimen: * AM Fasting BSG = 105 mg/dl. This is slightly below goal range for patient based on inpatient targets and co-morbidities. Patient has significant nausea and decreased PO intake. Fasting BSGs have trended downwards over the past 3 days (171-134-105 mg/dL respectively). Decrease Lantus by half. Set up scale for tomorrow. * Post-prandial BSGs are in range therefore no changes needed to CF/CR. * Total daily dose = 10-20 units/day depending on PO intake. PLAN FOR INPATIENT GLYCEMIC CONTROL: * Decreasing Lantus to 5 units SQ qAM then start scale for 08/24/2019 * Lantus 0 units if BSG < 90 mg/dL * Lantus 5 units if BSG 90-120 mg/dL * Lantus 9 units if BSG > 120 mg/dL * Continuing correction factor of 25 mg/dl/unit * Continuing carb ratio of 1 unit per 9 grams CHO consumed * Continuing goal range of Low 110 mg/dL - High 140 mg/dL RECOMMENDATIONS FOR DISCHARGE: * see note from 08/22/2019 Thank you.
--- NOTE | 2019-08-23 11:56 | Gastroenterology Progress Note ---
Date of Service August 23, 2019 Assessment & Plan (1) Choledocholithiasis: 69 y/o male with Gallstones, CHF, s/p ERCP with stenting, Pt had been doing well, however GI recalled today due to recurrent nausea, abd pain, confusion. LFTs continue to improve. On exam he is alert but not nursing staff reports he is confused; takes off nasal cannula, put ice chips in his denture cup, etc. Abd is soft, nondistended. Head CT neg for acute changes. VSS. Etiology of symptoms unclear; bowel obstruction seems less likely given he is passing flatus and stool; no obvious GIB and HGB stable, no s/s occult infections such as leukocytosis, tachycardia or fever. - Check KUB to check stent placement - IVF as needed - Antiemetics PRN - Continue ABX, complete 7 day course of Cipro/Flagyl - No NSAIDs for 5 days - Will need repeat ERCP 2-3 weeks with stent removal and EUS guided GB drainage and placement of Axios stent at [facility] Admission and Anticipated Discharge Date Admission Date: August 11, 2019 Supervising Physician Co-Signing Physician Notes I performed a history and physical examination of the patient today, including specifically on physical exam - soft abdomen. I have discussed the patient's management with the advanced practitioner. Please refer to the nurse practitioner's note for the documented findings and plan of care. Patient seems fine to me, denies any abdominal pain and is awake and alert. Had vomiting yesterday but now is better. KUB is unremarkable. Labs with no leukocytosis, LFTs improved. His nausea is likely related to his general illness and multiple meds. Give Antiemetics. PPI. Soft diet as tolerated. Recall GI if condition declines. Subjective GI recalled for pt experiencing nausea, intermittent stabby generalized abd pain, confusion since yesterday. Stat head CT ordered today and was neg for acute changes. Transaminases continue to trend down; tbili and ALP stable, HGB stable, no leukocytosis, renal fxn stable. He had a small brown BM today; passing flatus. He's had nothing PO today. Pt remains afebrile, HD stable. O2 sat 100% on 4 L/min NC. Had emesis last night but none today. No melena, hematochezia, hematemesis, denies chest pain, cough, dyspnea. Review of Systems Review of Systems: All systems reviewed & are unremarkable except as noted in HPI & below Physical Exam Constitutional: well developed and well nourished; no acute distress Eyes: + anicteric sclerae Respiratory: normal respiratory effort Cardiovascular: Rate/Rhythm: regular rate and regular rhythm Gastrointestinal (Abdomen): Inspection/Auscultation: abdomen normal to inspection and normal bowel sounds; abdomen not distended Percussion/Palpation: abdomen soft mild-mod diffuse tenderness, no rebound, guarding Skin: no rashes, warm and dry no jaundice Psychiatric: Orientation: alert not oriented, nurses note pt keeps removing nasal cannula; speech currently fluent, face is smmetric Results & Data ([facility]) Vital Signs (Past 12 Hours) Vital Signs Temp Pulse Pulse Pulse Resp BP BP 08/23/19 08:23 36.8 C 90 19 134/64 08/23/19 04:25 36.5 C 75 20 127/72 08/22/19 23:56 74 Pulse Ox 08/23/19 08:23 91 08/23/19 04:25 97 08/22/19 23:56 Laboratory Results 08/23/19 08/23/19 08/23/19 Range/Units 11:45 07:57 07:23 Hgb 9.0 L (14.0-18.0) g/dL Hct 30.3 L (42-52) % PT (9.0-12.0) Seconds INR (0.9-1.1) Sodium (136-145) mmol/L Potassium (3.5-5.1) mmol/L Chloride (98-107) mmol/L Carbon Dioxide (21-32) mmol/L Anion Gap (3-11) BUN (7-18) mg/dl Creatinine (0.6-1.4) mg/dl Est Cr Clr Drug Dosing ml/min Est GFR ( Amer) Est GFR (Non-Af Amer) BUN/Creatinine Ratio (10-20) Glucose (70-99) mg/dl POC Glucose 128 H 105 H (70-99) mg/dl Calcium (8.5-10.1) mg/dl Total Bilirubin (0.2-1) mg/dl AST (15-37) U/L ALT (12-78) U/L Alkaline Phosphatase (45-117) U/L Total Protein (6.4-8.2) gm/dl Albumin (3.4-5.0) gm/dl Globulin (2.5-4.0) gm/dl Albumin/Globulin Ratio (0.9-2) 08/23/19 08/23/19 08/22/19 Range/Units 07:23 07:23 20:25 Hgb (14.0-18.0) g/dL Hct (42-52) % PT 20.7 H (9.0-12.0) Seconds INR 2.0 H (0.9-1.1) Sodium 137 (136-145) mmol/L Potassium 3.5 (3.5-5.1) mmol/L Chloride 96 L (98-107) mmol/L Carbon Dioxide 33 H (21-32) mmol/L Anion Gap 9.0 (3-11) BUN 58 H (7-18) mg/dl Creatinine 1.72 H D (0.6-1.4) mg/dl Est Cr Clr Drug Dosing 48.1 ml/min Est GFR ( Amer) 46.0 Est GFR (Non-Af Amer) 39.7 BUN/Creatinine Ratio 33.7 H (10-20) Glucose 107 H (70-99) mg/dl POC Glucose 101 H (70-99) mg/dl Calcium 8.7 (8.5-10.1) mg/dl Total Bilirubin 1.5 H (0.2-1) mg/dl AST 177 H (15-37) U/L ALT 546 H (12-78) U/L Alkaline Phosphatase 129 H (45-117) U/L Total Protein 6.3 L (6.4-8.2) gm/dl Albumin 3.1 L (3.4-5.0) gm/dl Globulin 3.2 (2.5-4.0) gm/dl Albumin/Globulin Ratio 1.0 (0.9-2) 08/22/19 Range/Units 16:47 Hgb (14.0-18.0) g/dL Hct (42-52) % PT (9.0-12.0) Seconds INR (0.9-1.1) Sodium (136-145) mmol/L Potassium (3.5-5.1) mmol/L Chloride (98-107) mmol/L Carbon Dioxide (21-32) mmol/L Anion Gap (3-11) BUN (7-18) mg/dl Creatinine (0.6-1.4) mg/dl Est Cr Clr Drug Dosing ml/min Est GFR ( Amer) Est GFR (Non-Af Amer) BUN/Creatinine Ratio (10-20) Glucose (70-99) mg/dl POC Glucose 103 H (70-99) mg/dl Calcium (8.5-10.1) mg/dl Total Bilirubin (0.2-1) mg/dl AST (15-37) U/L ALT (12-78) U/L Alkaline Phosphatase (45-117) U/L Total Protein (6.4-8.2) gm/dl Albumin (3.4-5.0) gm/dl Globulin (2.5-4.0) gm/dl Albumin/Globulin Ratio (0.9-2)
--- NOTE | 2019-08-23 12:41 | CT Scan Report ---
HEAD CT NONCONTRAST CT DOSE: 960.06 mGy.cm HISTORY: Change in mental status TECHNIQUE: Multiaxial CT images of the head were performed without the use of intravenous contrast. A utomated exposure control was utilized for this study. A dose lowering technique was utilized adheri ng to the principles of ALARA. Comparison: Head CT 08/11/2019. Findings: The paranasal sinuses and mastoid air cells are clear. The calvarium and skull base are int act. There is no mass, hematoma, midline shift, acute infarct. White matter hypodensity is nonspecifi c but suggestive of moderate microvascular ischemic change. The ventricles and sulci demonstrate mild age-related involutional changes. Impression: No acute intracranial abnormality. Atrophy and microvascular ischemic changes. ACT 112: Negative or not required by law. Electronically signed by: Jeramy Esquivel M.D. 08/23/2019 12:39 PM
--- NOTE | 2019-08-23 13:38 | XRay Report ---
XR KUB/Abdomen 1 view CLINICAL HISTORY: abd pain, nausea COMPARISON STUDY: No previous studies for comparison. FINDINGS: Nonobstructive bowel pattern. Biliary and pancreatic ductal stents are present. Nonspecific calcification upper aspect right upper quadrant. IMPRESSION: 1. No acute process. Nonobstructive bowel pattern. Biliary and pancreatic ductal stents. ACT 112: Negative or not required by law. The above report was generated using voice recognition software. It may contain grammatical, syntax or spelling errors. Electronically signed by: Delmer Woodward M.D. 08/23/2019 1:36 PM
[2019-08-23] MEDS: POTASSIUM CHLORIDE 10 MEQ TABCR PO SCH ×2 (14:20→20:57)
[2019-08-23] MEDS ORDERED: ONDANSETRON INJ 2 MG/ML 2 ML VIAL IV PRN (15:59)
[2019-08-23] MEDS: WARFARIN SOD 2.5 MG TAB PO SCH (17:21)
[2019-08-23] MEDS: DIGOXIN 0.125 MG TAB PO SCH (17:21)
[2019-08-23] MEDS ORDERED: ASPIRIN 81 MG ECTAB PO ONE (17:46)
[2019-08-23 17:52] LABS: Base Excess VBG 9.4 mEq/L; HCO3 VBG 36 mmol/L; Oxygen Saturation VBG < 60.0 %; PCO2 VBG 61 mmHg (38-50); PO2 VBG 31 mmHg; pH VBG 7.39 (7.36-7.41)
--- NOTE | 2019-08-23 18:58 | Hospitalist Progress Note ---
Date of Service August 23, 2019 Assessment & Plan (1) Gallstones with biliary obstruction: Choledocholithiasis Transaminitis S/P ERCP with sphincterotomy and biliary/pancreatic stent placement on 08/20/19 Continue Flagyl Changed Cipro to Omnicef as also on amiodarone and has confusion LFTs trending down Continue low fat diet as tolerated Need to complete 7-day course of antibiotics. KUB:No acute process. Nonobstructive bowel pattern. Biliary and pancreatic ductal stents. Antiemetics PRN Needs follow up with GI as outpatient Appreciate GI Input (2) SOB (shortness of breath): Acute systolic and diastolic CHF exacerbation CXR:Interval development of mild congestive change. Cardiomegaly and small bilateral pleural effusions persist. H/O ischemic cardiomyopathy with EF of 35% in 2019 S/P AICD-ICD Interrogation completed CTA on 08/13/19: No evidence of pulmonary embolus. Cardiomegaly with findings of a pericardial effusion. Maximum thickness of 1.1 cm. Bilateral pleural effusions with mild consolidative change left lower lobe. Entresto held currently Received IV Lasix Appreciate Cardiology Input and recommendation Continue supplemental oxygen as needed Continue Bumex 4mg daily Continue fluid restriction Monitor I/Os Repeat CXR showed improved congestion Continue current management Pericardial Effusion Incidental finding on CT--as above Nothing to suggest tamponade Symptomatic anemia Positive fecal occult in the emergency room Hemoglobin dropped from prior admission despite being off Coumadin Received 2 units of blood transfusion BUN mildly elevated, total bilirubin within normal limits Resumed Aspirin, Coumadin Appreciate GI input Monitor CBC Urinary Retention Continue pickering for now Voiding trail as able Bladder scan PRN Microscopic Hematuria No gross hematuria noted Repeat UA: No hematuria Resolved Stroke like Symptoms/Vertigo DD: Hypoglycemia, ICD problems, complex migraine CT head:No acute intracranial findings. No significant change in appearance of the brain. Carotid Doppler: 50-69% stenosis of the origin/proximal left internal carotid artery. Neurology Consulted -no further recommendation as symptoms are not due to Doppler findings in neck Continue aspirin, Coumadin Increase Aspirin to 162mg daily Repeat CT showed no acute process Could not get CTA head or neck secondary to renal insufficiency Could not get MRI brain due to ICD Neurology input appreciated. Fall precautions Keep BP on higher side Acute Kidney Injury on CKD III Baseline Cr:1.4-1.7 Due to diuretics/Urinary retention Entresto held Monitor renal function Cr: 2.75>>2.59>>2.16>>1.7 Repeat renal ultrasound did not show any hydronephrosis. CAD Continue Aspirin, Lipitor, metoprolol Entresto held due to BRENT H/O atrial fibrillation Rate controlled Currently off anticoagulation Continue amiodarone, metoprolol, digoxin Continue coumadin Monitor INR:2.0 Hyperlipidemia on statin DM II Hypoglycemic prior to admission Hb A1C:6.22 Jul 2019 Continue insulin therapy Glycemic pharmacy consult. Hypokalemia Likely due to diuretics/poor oral intake Replete electrolytes as needed ANTOINETTE on CPAP DVT Px: Coumadin SCDs RE occult GI/symptomatic anemia Code Status Full code Disposition Expect to discharge home when medically stable (3) Metabolic encephalopathy: Admission and Anticipated Discharge Date Admission Date: August 11, 2019 Subjective Patient is seen and examined at bedside Reports nausea and still has poor appetite Intermittently confused per RN Had stroke like symptoms CT head showed no acute stroke Discussed with Neurology, GI today Patient also reported dizziness Denies any chest pain, shortness of breath, vomiting Review of Systems Review of Systems: All systems reviewed & are unremarkable except as noted in HPI & below Physical Exam Physical Exam: Physical Exam: Vitals signs as noted above General Appearance:Obese, no apparent distress Head: normocephalic, Atraumatic Eyes: normal inspection, EOMI Neck: supple, Trachea midline Respiratory/Chest: Decreased breath sounds at bases , CTA Cardiovascular: S1, S2, No murmur Abdomen/GI:Soft, mild generalized tender, Bowel sounds present Extremities/Musculoskelatal:normal inspection, Improved pedal edema, Chronic B/L venous stasis changes Neurologic/Psych:AAOX3, grossly no focal neurological deficits Skin: normal color, warm Results & Data Results & Data ([facility]) Vital Signs (Past 12 Hours) Vital Signs Temp Pulse Pulse Pulse Resp BP Pulse Ox 08/23/19 17:21 84 08/23/19 16:10 90 08/23/19 15:32 36.7 C 83 20 157/89 H 90 08/23/19 12:01 84 18 152/67 H 100 08/23/19 09:00 08/23/19 08:23 36.8 C 90 19 134/64 91 Pulse Ox 08/23/19 17:21 08/23/19 16:10 08/23/19 15:32 08/23/19 12:01 08/23/19 09:00 94 08/23/19 08:23 Laboratory Results Short CBC 08/23/19 Range/Units 07:23 Hgb 9.0 L (14.0-18.0) g/dL Hct 30.3 L (42-52) % BMP 08/23/19 07:23 Sodium 137 Potassium 3.5 Chloride 96 L Carbon Dioxide 33 H BUN 58 H Creatinine 1.72 H D Glucose 107 H Calcium 8.7 Liver Function 08/23/19 Range/Units 07:23 Total Bilirubin 1.5 H (0.2-1) mg/dl AST 177 H (15-37) U/L ALT 546 H (12-78) U/L Alkaline Phosphatase 129 H (45-117) U/L Albumin 3.1 L (3.4-5.0) gm/dl
[2019-08-23] MEDS: CEFDINIR 300 MG CAP PO SCH (20:57)
[2019-08-24] MEDS: metroNIDAZOLE 500 MG TAB PO SCH ×2 (05:30→15:10)
[2019-08-24 06:47] LABS: Hematocrit (blood only) 31.5 % (42-52); Hemoglobin 9.4 g/dL (14.0-18.0)
[2019-08-24 06:56] LABS: INR 2.3 (0.9-1.1); Prothrombin Time 23.6 Seconds (9.0-12.0)
[2019-08-24 07:40] LABS: Albumin Level 3.2 gm/dl (3.4-5.0); Bilirubin,Total 1.7 mg/dl (0.2-1); Calcium 8.5 mg/dl (8.5-10.1); Est GFR (Non-African American) 39.7; Globulin 3.1 gm/dl (2.5-4.0); Potassium 3.9 mmol/L (3.5-5.1); Total Protein 6.3 gm/dl (6.4-8.2)
[2019-08-24] MEDS: INSULIN ASPART 100 UNITS/ML 3 ML PEN SC SCH ×4 (07:53→21:18)
[2019-08-24] MEDS: INSULIN GLARGINE SOLOSTAR 100 UNITS/ML 3 ML PEN SC SCH ×2 (08:10→23:28)
[2019-08-24] MEDS: ONDANSETRON 4 MG OD TAB PO SCH (08:56)
[2019-08-24] MEDS ORDERED: INSULIN GLARGINE SOLOSTAR 100 UNITS/ML 3 ML PEN SC SCH (09:00)
[2019-08-24] MEDS ORDERED: ASPIRIN 81 MG ECTAB PO SCH (09:00)
[2019-08-24] MEDS: PROMETHAZINE HCL 6.25 MG in SODIUM CHLORIDE 0.9% 50 ML IV PRN (10:31)
--- NOTE | 2019-08-24 11:16 | Pharmacy Report ---
Pharmacy Glycemic Short Note 2 - Date of Service August 24, 2019 - Glycemic Short BSG Results (Last 24 hours): 08/23/19 08/23/19 08/23/19 11:45 14:15 16:06 Glucose POC Glucose 128 H 145 H 148 H 08/23/19 08/24/19 08/24/19 20:16 06:13 07:20 Glucose 156 H POC Glucose 165 H 169 H OUTPATIENT ANTIDIABETIC REGIMEN: * A1c = 6.4% * Lantus 45 units SQ qAM * Novolog SS ASSESSMENT: * Patient's BSGs have been well-controlled past 48+ hours * Basal insulin held yesterday AM for "below goal" AM fasting BSG of 105 mg/dl. No prandial insulin given yesterday for significantly decreased PO intake today. * No changes required at this time. Lantus dosing continues with dose based on BSG- therefore, dose is held or reduced when BSGs are below goal. PLAN FOR INPATIENT GLYCEMIC CONTROL: * Basal insulin - * Lantus 0-9 units SQ qAM based on BSG * 0 units for BSG < 100 * 5 units for BSG 100-140 mg/dl * 9 units for BSG > 140 * Bolus insulin - no change * NovoLog per scale ACHS or Q6hrs while NPO * Goal Range: Low 120 mg/dL - High 150 mg/dL * Correction Factor: 25 mg/dL/unit * Nutritional / Prandial insulin per carb ratio of 1 unit per 9 grams CHO consumed PLAN FOR DISCHARGE: * A1c of 6.4% indicates excellent glycemic control * Patient was hypoglycemic on admission (BSG = 45 mg/dL). Based on age and comorbidities, would recommend a goal A1c < 7.5%. Recommend decreasing home Lantus dose by 30% to 30 units QAM. Close follow-up with outpatient provider/automotive production worker is recommended to discuss current regimen, A1c and hypoglycemia at home.
--- NOTE | 2019-08-24 11:52 | Consultation Report ---
DATE OF CONSULTATION: 08/24/2019 REASON FOR CONSULTATION: Possible transient ischemic attack. HISTORY OF PRESENT ILLNESS: The patient is a 69-year-old male with multiple medical comorbidities including diabetes, ischemic cardiomyopathy, atrial fibrillation, coronary artery disease, ventricular tachycardia, hypertension, dyslipidemia, obstructive sleep apnea, osteoarthritis. The patient was initially admitted on 08/05/2019 for symptomatic anemia, supratherapeutic INR, dyspnea on exertion and fatigue. My understanding is that during this lengthy hospitalization, the patient was to undergo colonoscopy and EGD to rule out a GI source of bleeding. This was not done because of hypoxemia. The patient was found to have a biliary obstruction. His anticoagulants were held and the patient underwent an ERCP. I believe a stent was placed as well. The patient has had waxing and waning mental status. At some point earlier in the hospitalization, my partner Dr. Cruz was consulted for complaints of brief sense of thickness of his tongue, dysarthria, circumoral numbness of the face, brightening of vision, dystaxia lasting 1-2 minutes without neurologic deficit. Dr. Cruz questioned whether or not hypoglycemia may have caused the symptoms. MRI imaging was not possible due to pacemaker and renal function precluded a CTA. Carotid ultrasound showed a 50%-69% stenosis to the left internal carotid. Dr. Cruz felt his history was likely consistent with vertebrobasilar transient ischemic attacks. At that point, he deferred ongoing anticoagulation to Cardiology and Gastroenterology. The patient was restarted on aspirin and Coumadin. Yesterday, he was found to be somewhat more confused. He may have had a thick tongue. He may have had some perioral numbness. Nursing was concerned and did a stroke evaluation. She had seen the patient dropped something with his left hand. She felt by exam, he may be mildly weak in the left hand audio visual collections coordinator, but noticed no drift. A CT of the head was performed, it was unchanged. His INR was therapeutic at 2. A blood gas was notable for increasing CO2 retention. Blood sugar was unremarkable. He may have been transiently hypoxic. PAST MEDICAL HISTORY: As above. PAST SURGICAL HISTORY: Notable for AICD, bowel resection, cardiac cath, bilateral cataracts, colonoscopy, coronary stenting, partial colectomy, ileorectal anastomosis for multiple polyps. FAMILY HISTORY: Coronary artery disease, diabetes, lung cancer. SOCIAL HISTORY: Nonsmoker, nondrinker. ALLERGIES: PENICILLIN, CODEINE, SIMVASTATIN. CURRENT MEDICATIONS: Amiodarone, pantoprazole, allopurinol, digoxin, metoprolol, insulin, bumetanide, Flagyl, potassium, warfarin, Zofran, aspirin, Omnicef, venlafaxine, p.r.n. narcotics including tramadol and Dilaudid. LABORATORY DATA: Notable for an elevated BUN and creatinine, transaminases. AST 109, ALT 413, ammonia 14. Venous CO2 was 62. Urinalysis not performed. PHYSICAL EXAMINATION: GENERAL: The patient is awake; alert; oriented to person, month and year. He thinks he is in [place] in [facility]. He is somewhat inattentive. He was opening an EKG lead package thinking that it was syrup. His naming was unremarkable. He had 1/3 memory at 3 minutes. No confabulation was noted. NECK: There were no carotid bruits. HEART: No heart murmurs are appreciable. EXTREMITIES There is some mild diffuse swelling of the right upper extremity. Venous stasis are noted in the lower extremities. NEUROLOGIC: Pupils were postsurgical. Optic nerves unremarkable. Normal huerta, motility and facial symmetry. No facial anesthesia is noted. Speech is nondysarthric. Patternmaker Hand strength is essentially symmetric. There is no drift. There is equal rapid alternating movements. Lower extremity strength is symmetric. Reflexes are diminished in the lowers. Toes are downgoing There is a mid calve level to temperature. Vibration is only present at the knees. There is a positive Tinel's over the left median nerve. IMPRESSION AND PLAN: This patient's picture is one of a mild encephalopathy. He had some nonspecific complaints during this time. Nursing felt his audio visual collections coordinator strength was reduced on the left, but he had no drift. I think the picture is one of more encephalopathy, possibly related to CO2 retention. Additionally, I would recommend checking urinalysis, following up on the digoxin level, perhaps repeating the ABG if the patient is not improving. Consideration of an antibiotic effect in terms of confusion will need to be taken if he continues to be confused. Although certainly perioral numbness could be localized to the posterior circulation, it is difficult to know how reliable the patient is. He does speak of some hand numbness and tingling. He appears to have a fairly significant neuropathy and may have the same in the hands. Again, in summary, I cannot see that there is a lateralizing transient ischemic attack here. We are unable to perform an MRI or a CTA to see if there is any high-grade posterior circulation stenosis. In the absence of clear transient ischemia, I would recommend optimizing the patient's INR to 2.5. Dr. Horvath and I spoke yesterday and he gave him some additional aspirin, 162 mg. Once the patient's INR is 2.5 or above, I would reduce his aspirin down to 81 mg. He does have left internal carotid stenosis of moderate degree. I would recommend a follow up carotid ultrasound in 6 months and then yearly thereafter if stable. This episode as described does not localize to the left internal carotid. If the patient were to have a sudden change in mentation, I would certainly repeat an evaluation including a CT. DAVID
--- NOTE | 2019-08-24 14:06 | XRay Report ---
KUB CLINICAL HISTORY: Nausea. FINDINGS: 2 AP supine abdominal radiographs are compared to study dated 08/23/2019 and correlated with abdominal CT dated 08/18/2019. There is a nonobstructed abdominal bowel gas pattern. A large calcified gallstone is again seen in the right upper quadrant. Common bile duct and pancreatic duct stents are in place. No evidence of intraperitoneal free air is seen on these supine images. There are pelvic p hleboliths. The heart is enlarged. Pleural effusions are noted at the lung bases. The skeletal struct ures are osteopenic and appear intact. Lumbosacral spondylosis is observed. IMPRESSION: 1. Common bile duct and pancreatic duct stents are in place. 2. A large calcified gallstone is seen in the right upper quadrant. 3. No bowel obstruction. Electronically signed by: Josue Snow M.D. 08/24/2019 2:05 PM
[2019-08-24] MEDS: BUMETANIDE 1 MG TAB PO SCH (14:07)
[2019-08-24] MEDS: AMIODARONE 200 MG TAB PO SCH ×2 (14:07→21:15)
[2019-08-24] MEDS: VENLAFAXINE HCL XR 75 MG CAPXR PO SCH ×2 (14:08→21:16)
[2019-08-24] MEDS: allopurinoL 100 MG TAB PO SCH (14:08)
[2019-08-24] MEDS: POTASSIUM CHLORIDE 10 MEQ TABCR PO SCH ×3 (14:08→21:30)
[2019-08-24] MEDS: PANTOprazole 40 MG TAB PO SCH ×2 (14:08→21:17)
[2019-08-24] MEDS: allopurinoL 300 MG TAB PO SCH (14:08)
[2019-08-24] MEDS: CEFDINIR 300 MG CAP PO SCH (14:08)
[2019-08-24] MEDS: METOPROLOL SUCC 25MG EXT REL TAB PO SCH ×2 (14:08→21:17)
[2019-08-24] MEDS ORDERED: METOCLOPRAMIDE HCL INJ 5 MG/ML 2 ML VIAL IV ONE (14:59)
[2019-08-24 15:01] LABS: Appearance Urine Clear (Clear); Bilirubin Urine Negative (Negative); Blood Urine 2+ (Negative); Color Urine Dark Yellow; Glucose Urine UA Negative (Negative); Ketones Urine Negative (Negative); Leukocyte Esterase Urine 2+ (Negative); Nitrite Urine Negative (Negative); Protein Urine 1+ (Negative); Specific Gravity Urine 1.017 (1.000-1.030); Urobilinogen Urine Negative (Negative)
[2019-08-24 15:21] LABS: Bacteria Urine Automated 1+ (Negative)
[2019-08-24] MEDS: WARFARIN SOD 2.5 MG TAB PO SCH (17:18)
[2019-08-24] MEDS: cefTRIAXone SODIUM 2,000 MG in DEXTROSE 5% 50 ML IV SCH (18:12)
[2019-08-24] MEDS: metroNIDAZOLE 500 MG/100 ML BAG IV SCH (18:12)
--- NOTE | 2019-08-24 18:25 | Hospitalist Progress Note ---
Date of Service August 24, 2019 Assessment & Plan (1) Gallstones with biliary obstruction: Choledocholithiasis Transaminitis S/P ERCP with sphincterotomy and biliary/pancreatic stent placement on 08/20/19 LFTs trending down Continue low fat diet as tolerated Need to complete 7-day course of antibiotics. KUB:No acute process. Nonobstructive bowel pattern. Biliary and pancreatic ductal stents. Antiemetics PRN Appreciate GI Input Changed Abx to Ceftriaxone, flagyl given persistence of nausea Given one dose of Reglan as per GI recommendations (2) SOB (shortness of breath): Acute systolic and diastolic CHF exacerbation CXR:Interval development of mild congestive change. Cardiomegaly and small bilateral pleural effusions persist. H/O ischemic cardiomyopathy with EF of 35% in 2019 S/P AICD-ICD Interrogation completed CTA on 08/13/19: No evidence of pulmonary embolus. Cardiomegaly with findings of a pericardial effusion. Maximum thickness of 1.1 cm. Bilateral pleural effusions with mild consolidative change left lower lobe. Entresto held currently Received IV Lasix Appreciate Cardiology Input and recommendation Continue supplemental oxygen as needed Continue Bumex 4mg daily Continue fluid restriction Monitor I/Os Repeat CXR showed improved congestion Consider Pulm eval if needed Metabolic Encephalopathy Recheck Urine to R/O UTI Cipro discontinued Normal Ammonia levels CT head: no acute change Appreciate Neurology Input On Rocephin while Cx pending Reorient frequently to minimize delirium Pericardial Effusion Incidental finding on CT--as above Nothing to suggest tamponade Symptomatic anemia Positive fecal occult in the emergency room Hemoglobin dropped from prior admission despite being off Coumadin Received 2 units of blood transfusion BUN mildly elevated, total bilirubin within normal limits Resumed Aspirin, Coumadin Appreciate GI input Monitor CBC Urinary Retention Continue pickering for now Voiding trail as able Bladder scan PRN Microscopic Hematuria No gross hematuria noted Repeat UA: No hematuria Resolved Stroke like Symptoms/Vertigo DD: Hypoglycemia, ICD problems, complex migraine CT head:No acute intracranial findings. No significant change in appearance of the brain. Carotid Doppler: 50-69% stenosis of the origin/proximal left internal carotid artery. Neurology Consulted -no further recommendation as symptoms are not due to Doppler findings in neck Continue aspirin, Coumadin Increase Aspirin to 162mg daily Repeat CT showed no acute process Could not get CTA head or neck secondary to renal insufficiency Could not get MRI brain due to ICD Neurology input appreciated. Fall precautions Keep BP on higher side Once INR >2.5, will switch back aspirin to 81mg Acute Kidney Injury on CKD III Baseline Cr:1.4-1.7 Due to diuretics/Urinary retention Entresto held Monitor renal function Cr: 2.75>>2.59>>2.16>>1.7 Repeat renal ultrasound did not show any hydronephrosis. CAD Continue Aspirin, Lipitor, metoprolol Entresto held due to BRENT H/O atrial fibrillation Rate controlled Currently off anticoagulation Continue amiodarone, metoprolol, digoxin Continue coumadin Monitor INR:2.3 Hyperlipidemia on statin DM II Hypoglycemic prior to admission Hb A1C:6.22 Jul 2019 Continue insulin therapy Glycemic pharmacy consult. Hypokalemia Likely due to diuretics/poor oral intake Replete electrolytes as needed ANTOINETTE on CPAP DVT Px: Coumadin SCDs RE occult GI/symptomatic anemia Code Status Full code Disposition Expect to discharge home when medically stable (3) Metabolic encephalopathy: Admission and Anticipated Discharge Date Admission Date: August 11, 2019 Subjective Patient is seen and examined at bedside Reports persistent nausea and had an episode of vomiting this morning KUB showed no bowel obstruction Although oriented and follows commands, confused intermittently Discussed with GI and patient's family today Refused meds this morning States having mild occipital headache Dizziness improved as per patient Denies any chest pain, shortness of breath Review of Systems Review of Systems: All systems reviewed & are unremarkable except as noted in HPI & below Physical Exam Physical Exam: Physical Exam: Vitals signs as noted above General Appearance:Obese, no apparent distress Head: normocephalic, Atraumatic Eyes: normal inspection, EOMI Neck: supple, Trachea midline Respiratory/Chest: Decreased breath sounds at bases , CTA Cardiovascular: S1, S2, No murmur Abdomen/GI:Soft, non tender, Bowel sounds present Extremities/Musculoskelatal:normal inspection, Improved pedal edema, Chronic B/L venous stasis changes Neurologic/Psych:AAOX3, grossly no focal neurological deficits Skin: normal color, warm Results & Data Results & Data ([facility]) Vital Signs (Past 12 Hours) Vital Signs Temp Pulse Pulse Resp BP Pulse Ox Pulse Ox 08/24/19 15:48 86 08/24/19 15:30 36.5 C 87 18 167/82 H 98 08/24/19 12:41 36.6 C 88 22 148/84 H 96 08/24/19 09:11 94 08/24/19 07:37 87 08/24/19 07:35 69 20 154/80 H 92 Laboratory Results Short CBC 08/24/19 Range/Units 06:13 Hgb 9.4 L (14.0-18.0) g/dL Hct 31.5 L (42-52) % BMP 08/24/19 06:13 Sodium 137 Potassium 3.9 Chloride 95 L Carbon Dioxide 34 H BUN 58 H Creatinine 1.72 H Glucose 156 H Calcium 8.5 Liver Function 08/24/19 Range/Units 06:13 Total Bilirubin 1.7 H (0.2-1) mg/dl AST 109 H (15-37) U/L ALT 413 H (12-78) U/L Alkaline Phosphatase 113 (45-117) U/L Albumin 3.2 L (3.4-5.0) gm/dl Urine 08/24/19 Range/Units 14:48 Urine Color Dark Yellow Urine Appearance Clear (Clear) Urine pH 5.0 (4.5-7.5) Ur Specific [place] 1.017 (1.000-1.030) Urine Protein 1+ H (Negative) Urine Glucose (UA) Negative (Negative)
[2019-08-24 20:09] LABS: Allen Test POS (Pos); Base Excess ABG 7.5 mEq/L (-9-1.8); HCO3 ABG 32 mmol/L (19-24); Oxygen Saturation ABG 86.5 % (90-95); PCO2 ABG 47 mmHg (35-46); PO2 ABG 56 mmHg (80-95); pH ABG 7.45 (7.35-7.45)
[2019-08-24] MEDS: VENLAFAXINE HCL XR 150 MG CAPXR PO SCH (20:30)
[2019-08-24] MEDS ORDERED: MICONAZOLE NITRATE POWDER 43 GM EXT PRN (21:55)
[2019-08-25] MEDS: metroNIDAZOLE 500 MG/100 ML BAG IV SCH ×4 (02:42→23:33)
[2019-08-25 07:16] LABS: Hematocrit (blood only) 32.4 % (42-52); Hemoglobin 9.5 g/dL (14.0-18.0); Mean Corpuscular Hemoglobin 27.2 pg (25-34); Mean Corpuscular Hgb Conc 29.3 g/dL (32-36); Mean Corpuscular Volume 92.8 fL (80-100); Mean Platelet Volume 10.2 fL (7.4-10.4); Nucleated RBC # (auto) 0.25 K/uL (0-0); Platelet Count 279 K/uL (130-400); RDW Coefficient of Variation 18.6 % (11.5-14.5); RDW Standard Deviation 62.7 fL (36.4-46.3); Red Blood Count 3.49 M/uL (4.7-6.1); White Blood Count 12.37 K/uL (4.8-10.8)
[2019-08-25 07:27] LABS: INR 2.6 (0.9-1.1); Prothrombin Time 25.7 Seconds (9.0-12.0)
[2019-08-25 07:39] LABS: BUN Creatinine Ratio 35.7 (10-20); Creatinine Clr Calc Pharmacy 43.1 ml/min; Est GFR (African American) 40.5; Potassium 3.7 mmol/L (3.5-5.1)
[2019-08-25] MEDS: METOPROLOL SUCC 25MG EXT REL TAB PO SCH ×2 (08:41→19:59)
[2019-08-25] MEDS: BUMETANIDE 1 MG TAB PO SCH (08:41)
[2019-08-25] MEDS: AMIODARONE 200 MG TAB PO SCH ×2 (08:42→19:58)
[2019-08-25] MEDS: INSULIN ASPART 100 UNITS/ML 3 ML PEN SC SCH ×4 (08:43→20:05)
[2019-08-25] MEDS: INSULIN GLARGINE SOLOSTAR 100 UNITS/ML 3 ML PEN SC SCH (08:49)
--- NOTE | 2019-08-25 08:52 | XRay Report ---
XR chest 1V portable CLINICAL HISTORY: Hypoxia dyspnea COMPARISON STUDY: 08/22/2019 FINDINGS: Stable cardiomegaly. Stable findings of congestive failure. Small bilateral pleural effusio ns. IMPRESSION: Stable findings of congestive failure and small bilateral pleural effusions. ACT 112: Negative or not required by law. The above report was generated using voice recognition software. It may contain grammatical, syntax or spelling errors. Electronically signed by: Delmer Woodward M.D. 08/25/2019 8:51 AM
[2019-08-25] MEDS: POLYETHYLENE (MIRALAX) 17 GM PACK PO SCH (09:37)
[2019-08-25] MEDS: ASPIRIN 81 MG ECTAB PO SCH (09:40)
[2019-08-25] MEDS ORDERED: FUROSEMIDE 100 MG in SYRINGE 0 ML IV ONE (11:00)
[2019-08-25] MEDS: FUROSEMIDE 100 MG in DEXTROSE 5% 90 ML IV SCH ×2 (11:56→18:25)
[2019-08-25] MEDS: POTASSIUM CHLORIDE 10 MEQ TABCR PO SCH ×2 (11:56→19:58)
[2019-08-25] MEDS: allopurinoL 300 MG TAB PO SCH (11:56)
[2019-08-25] MEDS: PANTOprazole 40 MG TAB PO SCH ×2 (11:56→19:59)
[2019-08-25] MEDS: ONDANSETRON 4 MG OD TAB PO SCH (11:56)
[2019-08-25] MEDS: allopurinoL 100 MG TAB PO SCH (11:56)
[2019-08-25] MEDS: VENLAFAXINE HCL XR 75 MG CAPXR PO SCH (11:57)
--- NOTE | 2019-08-25 12:08 | Pharmacy Report ---
Pharmacy Glycemic Short Note 2 - Date of Service August 25, 2019 - Glycemic Short BSG Results (Last 24 hours): 08/24/19 08/24/19 08/25/19 16:14 20:23 06:45 Glucose 132 H POC Glucose 198 H 159 H 08/25/19 08/25/19 07:35 11:40 Glucose POC Glucose 141 H 181 H OUTPATIENT ANTIDIABETIC REGIMEN: * A1c = 6.4% * Lantus 45 units SQ qAM * Novolog SS ASSESSMENT: * Patient's has received 16 units of insulin over the past 24hrs * 9 units of basal {Lantus} * 7 units of bolus {NovoLog} * AM fasting BSG is in goal range today at 141 mg/dl - however, it is trending downwards over the past 2 days (169 --> 141). Pt with "low" AM fasting of 105 mg/dl on 08/23/19 after receiving multiple doses of 9 units of basal. Will lower basal dose slightly * BSGs have been well-controlled past 48+ hours * Post-prandial BSGs elevated. Will tighten bolus insulin parameters PLAN FOR INPATIENT GLYCEMIC CONTROL: * Basal insulin -decrease dose * Lantus 8 units SQ qAM * Bolus insulin - tighten * NovoLog per scale ACHS or Q6hrs while NPO * Goal Range: Low 110 mg/dL - High 140 mg/dL * Correction Factor: 20 mg/dL/unit * Nutritional / Prandial insulin per carb ratio of 1 unit per 8 grams CHO consumed PLAN FOR DISCHARGE: * A1c of 6.4% indicates excellent glycemic control - probable hypoglycemia at home as pt with severe hypoglycemia on admission * Based on age and comorbidities, would recommend a goal A1c < 7.5%. Recommend decreasing home Lantus dose. Close follow-up with outpatient provider/mutuel teller is recommended to discuss current regimen, A1c and hypoglycemia at home.
[2019-08-25] MEDS: THIAMINE HCL 100 MG TAB PO SCH (13:18)
[2019-08-25] MEDS: FOLIC ACID 400 MCG TAB PO SCH (13:19)
--- NOTE | 2019-08-25 15:41 | Hospitalist Progress Note ---
Date of Service August 25, 2019 Assessment & Plan (1) Gallstones with biliary obstruction: Choledocholithiasis Transaminitis S/P ERCP with sphincterotomy and biliary/pancreatic stent placement on 08/20/19 LFTs trending down Continue low fat diet as tolerated Need to complete 7-day course of antibiotics. KUB:No acute process. Nonobstructive bowel pattern. Biliary and pancreatic ductal stents. Antiemetics PRN Appreciate GI Input Changed Abx to Ceftriaxone, flagyl given persistence of nausea Continue bowel regimen (2) SOB (shortness of breath): Acute systolic and diastolic CHF exacerbation CXR:Interval development of mild congestive change. Cardiomegaly and small bilateral pleural effusions persist. H/O ischemic cardiomyopathy with EF of 35% in 2019 S/P AICD-ICD Interrogation completed CTA on 08/13/19: No evidence of pulmonary embolus. Cardiomegaly with findings of a pericardial effusion. Maximum thickness of 1.1 cm. Bilateral pleural effusions with mild consolidative change left lower lobe. Entresto held currently Appreciate Cardiology/Nephrology Input Continue supplemental oxygen as needed Hold Bumex Continue fluid restriction Monitor I/Os Started on lasix drip Monitor volume status Metabolic Encephalopathy UTI ruled out Urine Cx:Negative Blood Cx:pending Cipro discontinued Normal Ammonia levels CT head: no acute change Appreciate Neurology Input Reorient frequently to minimize delirium Pericardial Effusion Incidental finding on CT--as above Nothing to suggest tamponade Symptomatic anemia Positive fecal occult in the emergency room Hemoglobin dropped from prior admission despite being off Coumadin Received 2 units of blood transfusion BUN mildly elevated, total bilirubin within normal limits Resumed Aspirin, Coumadin Appreciate GI input Monitor CBC Urinary Retention Continue pickering for now Voiding trail as able Bladder scan PRN Microscopic Hematuria No gross hematuria noted Repeat UA: No hematuria Resolved Stroke like Symptoms/Vertigo DD: Hypoglycemia, ICD problems, complex migraine CT head:No acute intracranial findings. No significant change in appearance of the brain. Carotid Doppler: 50-69% stenosis of the origin/proximal left internal carotid artery. Neurology Consulted -no further recommendation as symptoms are not due to Doppler findings in neck Continue aspirin, Coumadin Repeat CT showed no acute process Could not get CTA head or neck secondary to renal insufficiency Could not get MRI brain due to ICD Neurology input appreciated. Fall precautions Keep BP on higher side INR in therapeutic range Acute Kidney Injury on CKD III Baseline Cr:1.4-1.7 Due to diuretics/Urinary retention Entresto held Monitor renal function Cr: 2.75>>2.59>>2.16>>1.9 Repeat renal ultrasound did not show any hydronephrosis. Nephrology consulted CAD Continue Aspirin, Lipitor, metoprolol Entresto held due to BRENT H/O atrial fibrillation Rate controlled Currently off anticoagulation Continue amiodarone, metoprolol, digoxin Continue coumadin Monitor INR:2.6 Hyperlipidemia on statin DM II Hypoglycemic prior to admission Hb A1C:6.22 Jul 2019 Continue insulin therapy Glycemic pharmacy consult. Hypokalemia Likely due to diuretics/poor oral intake Replete electrolytes as needed ANTOINETTE on CPAP DVT Px: Coumadin Code Status Full code Disposition Expect to discharge home when medically stable (3) Metabolic encephalopathy: Admission and Anticipated Discharge Date Admission Date: August 11, 2019 Subjective Patient is seen and examined at bedside Less confused today Still has nausea Denies chest pain, SOB, abd pain today CXR showed CHF, b/l pleural effusions Discussed with Nephrology today Will start on lasix drip Also discussed with GI today Review of Systems Review of Systems: All systems reviewed & are unremarkable except as noted in HPI & below Physical Exam Physical Exam: Physical Exam: Vitals signs as noted above General Appearance:Obese, no apparent distress Head: normocephalic, Atraumatic Eyes: normal inspection, EOMI Neck: supple, Trachea midline Respiratory/Chest: Decreased breath sounds at bases , CTA Cardiovascular: S1, S2, No murmur Abdomen/GI:Soft, non tender, Bowel sounds present Extremities/Musculoskelatal:normal inspection, B/L LE edema, Chronic B/L venous stasis changes Neurologic/Psych:AAOX3, grossly no focal neurological deficits Skin: normal color, warm Results & Data Results & Data ([facility]) Vital Signs (Past 12 Hours) Vital Signs Temp Pulse Resp BP Pulse Ox Pulse Ox 08/25/19 14:56 36.5 C 106 H 18 169/84 H 95 08/25/19 12:07 36.4 C L 96 H 18 149/70 H 95 08/25/19 09:00 94 08/25/19 07:58 36.3 C L 92 H 18 157/74 H 96 Laboratory Results Short CBC 08/25/19 Range/Units 06:45 WBC 12.37 H (4.8-10.8) K/uL Hgb 9.5 L (14.0-18.0) g/dL Hct 32.4 L (42-52) % Plt Count 279 (130-400) K/uL [facility] 08/25/19 06:45 Sodium 134 L Potassium 3.7 Chloride 92 L Carbon Dioxide 34 H BUN 68 H Creatinine 1.91 H Glucose 132 H Calcium 9.0
[2019-08-25] MEDS ORDERED: WARFARIN SOD 2 MG TAB PO SCH (16:00)
--- NOTE | 2019-08-25 16:02 | Nephrology Consultation ---
Date of Consultation August 25, 2019 Assessment & Plan (1) CKD (chronic kidney disease): Patient with CKD stage 4, baseline cr 2 due to DM and cardiorenal syndrome. Renal function has fluctuated a lot in setting of obligate need for diuresis. Current cr at baseline. Electrolytes stable. No need for HD -Monitor RF with daily BMP -No contrast unless life saving. (2) CHF (congestive heart failure): Patient with EF of 35%. CXR showing pulm congestion and effusion. -Will stop bumex and start lasix drip at 15/hr. -Will give lasix bolus as well -Monitor in/out and daily standing weight (3) Metabolic encephalopathy: Patient is intermittently confused and has 1:1 sitter. BUN is only in the 60's and this is less likely uremia -Recommend reducing dose of venlafaxine and avoid psychotropic meds. History of Present Illness Reason for Consultation: CKD 4 and volume overload Requesting Physician: Arjun Horvath MD Attending Physician: Arjun Horvath MD History of Present Illness This is a 69yoM with PMH of DM2, CAD, CHF with EF of 35%, A.fib, Ischemic CMP s/p ICD in 2018 and CKD stage 3 with baseline cr of 2. He follows with Dr. Gracia and last seen in Apr 2019 in renal clinic. He was admitted on 08/10 with SOB due to acute CHF. He was diuresed. Admission cr was 1.6 and it peaked to 2.9. At the time, he also had choledocholithiasis and is s/p ERCP with biliary stent. LFTs are better. Cr today is 1.9. Main problem now is body swelling and SOB. CXR showing CHF and tracy pleural effusions. He is on bumex 4mg bid but was only negative 480mls in 24hrs. he is on 4l oxygen. he had episodes of confusion but better today Allergies Allergy/AdvReac Type Severity Reaction Status Date / Time Penicillins Allergy Mild childhood Verified 08/10/19 23:04 reaction codeine AdvReac Mild NAUSEA, Verified 08/10/19 23:04 LIGHTHEADEDNESS simvastatin AdvReac Mild makes him Verified 08/10/19 23:04 feel like he is high Home Medications Home Medications Medication Instructions Recorded Confirmed Type aspirin 81 mg PO QAM 01/25/18 08/10/19 History atorvastatin 40 mg PO QPM 01/25/18 08/10/19 History allopurinol 100 mg PO QAM 09/11/18 08/10/19 History allopurinol 300 mg PO QAM 09/26/18 08/10/19 History insulin glargine 100 unit/mL (3 45 units SUBCUT QAM ml 12/17/18 08/10/19 History mL) subcutaneous pen metoprolol succinate 100 mg PO BID 01/21/19 08/10/19 History nitroglycerin 0.4 mg SUBLINGUAL UD PRN 01/21/19 08/10/19 History venlafaxine 150 mg PO BID 01/21/19 08/10/19 History insulin aspart U-100 100 unit/mL 0 units SQ ACHS ml 01/30/19 08/10/19 History (3 mL) subcutaneous pen meclizine 12.5 mg tablet 12.5 mg PO TID PRN 01/30/19 08/10/19 History sacubitril 97 mg-valsartan 103 mg 1 tab PO BID 90 Days #180 tab 01/30/19 08/10/19 Rx tablet bumetanide 4 mg PO QAM 02/27/19 08/10/19 History potassium chloride 10 meq PO BID 02/27/19 08/10/19 History digoxin 125 mcg (0.125 mg) tablet 125 mcg PO Q2D #45 tab 03/19/19 08/11/19 Rx amiodarone 200 mg tablet 200 mg PO BID #180 tab 05/16/19 08/10/19 Rx lorazepam 0.5 mg tablet 0.5 mg PO DAILY PRN #30 tab 07/25/19 08/10/19 Rx bumetanide 2 mg PO .DAILY@LUNCH PRN 08/05/19 08/10/19 History cholecalciferol (vitamin D3) 125 mcg PO 2XWK 08/05/19 08/10/19 History tramadol 50 mg PO Q6H PRN 08/05/19 08/10/19 History pantoprazole [Protonix] 40 mg PO BID #60 tab 08/07/19 08/10/19 Rx Patient History Medical History Anxiety (Inactive) Atrial fibrillation, chronic (Chronic) CAD (coronary artery disease) (Chronic) stenting to LAD in 1994 and 1996 stenting to RCA and LAD in 2007 CKD (chronic kidney disease) (Acute) Congestive heart failure (Resolved) Depression with anxiety (Chronic) Diabetes mellitus type II, controlled (Chronic) Diabetic neuropathy (Chronic) Dyslipidemia (Chronic) Gout HTN (hypertension) (Chronic) Ischemic dilated cardiomyopathy (Inactive) 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 CARDIAC CATH WITH 2 STENTS ANTOINETTE on CPAP (Chronic) Systolic and diastolic CHF, chronic (Chronic) Surgical History AICD (automatic cardioverter/defibrillator) present (Chronic) placed on 10/24/17 [employer] DEVICE. LAST CHECKED [address] MITCHELL BURNETT/[facility]. PLACED IN OCTOBER 2017 AT [facility] History of bowel resection (Resolved) MASSIVE POLPYS History of cardiac cath (Inactive) 1989 --> X2 STENTS. BARE METAL STENTS ~1992 --> X2 STENTS. DRUG ELUTING STENTS. History of cataract surgery (Resolved) BILATERAL History of colonoscopy (Inactive) History of heart artery stent (Resolved) History of partial colectomy (Resolved) "[facility]/ ilieorectal anast/ multiple polyps 2008" Stented coronary artery (Inactive) "stents x 4 to RCA and LAD 1997" Family History Mother Coronary heart disease Diabetes Father Lung cancer Sister Diabetes Social History Preferred Language: Congolese Communication Ability: Effective Cloth Winding Supervisor Required: No Beliefs That Will Affect Care: None marital status: Current Living Situation: Spouse Feels Safe at Home: Yes Smoking Status: Never smoker Second Hand Exposure: No ; Hx Alcohol Use: No Hx Substance Use: No Review of Systems Review of Systems: All systems reviewed & are unremarkable except as noted in HPI & below Physical Exam Physical Exam: General exam: Appears comfortable, no acute distress HEENT: Pupils are equal and reactive to light Neck: No JVD, neck is supple trachea is midline Respiratory system: Crackles bilaterally. Gastrointestinal: Abdomen is soft, non distended, non tender, bowel sounds are present CVS: Regular rate and rhythm. No murmurs, rubs or gallops Musculoskeletal: No joint or muscle tenderness Extremities: Non tender, 2+ edema, peripheral pulses are present Neuro: Oriented, no tremors, no focal neurological deficits Skin: No rashes, jaundice Results & Data Vital Signs (Past 12 Hours) Vital Signs Temp Pulse Resp BP Pulse Ox Pulse Ox 08/25/19 14:56 36.5 C 106 H 18 169/84 H 95 08/25/19 12:07 36.4 C L 96 H 18 149/70 H 95 08/25/19 09:00 94 08/25/19 07:58 36.3 C L 92 H 18 157/74 H 96 Laboratory Results 08/25/19 06:45 08/25/19 06:45 WBC 12.37 H RBC 3.49 L MCV 92.8 MCH 27.2 MCHC 29.3 L RDW Std Deviation 62.7 H RDW Coeff of Joe 18.6 H Plt Count 279 MPV 10.2 (1) CKD (chronic kidney disease) Chronic kidney disease stage: stage 4 (severe) Qualified Code(s): N18.4 - Chronic kidney disease, stage 4 (severe) (2) CHF (congestive heart failure) Heart failure chronicity: acute Heart failure type: unspecified Qualified Code(s): I50.9 - Heart failure, unspecified
[2019-08-25] MEDS: DIGOXIN 0.125 MG TAB PO SCH (17:04)
[2019-08-25] MEDS: cefTRIAXone SODIUM 2,000 MG in DEXTROSE 5% 50 ML IV SCH (17:46)
[2019-08-26] MEDS: FUROSEMIDE 100 MG in DEXTROSE 5% 90 ML IV SCH ×2 (00:06→05:52)
[2019-08-26] MEDS: metroNIDAZOLE 500 MG/100 ML BAG IV SCH ×2 (02:04→09:23)
[2019-08-26] MEDS: PROMETHAZINE HCL 6.25 MG in SODIUM CHLORIDE 0.9% 50 ML IV PRN (02:47)
[2019-08-26 07:22] LABS: Hematocrit (blood only) 31.4 % (42-52); Hemoglobin 9.6 g/dL (14.0-18.0); Mean Corpuscular Hemoglobin 27.8 pg (25-34); Mean Corpuscular Hgb Conc 30.6 g/dL (32-36); Mean Platelet Volume 9.9 fL (7.4-10.4); Nucleated RBC # (auto) 0.25 K/uL (0-0); Nucleated RBC % (auto) 2.1 %; Platelet Count 247 K/uL (130-400); RDW Coefficient of Variation 18.8 % (11.5-14.5); RDW Standard Deviation 62.5 fL (36.4-46.3); Red Blood Count 3.45 M/uL (4.7-6.1); White Blood Count 12.04 K/uL (4.8-10.8)
[2019-08-26 07:36] LABS: INR 4.2 (0.9-1.1); Prothrombin Time 41.1 Seconds (9.0-12.0)
[2019-08-26 07:53] LABS: Albumin Level 3.3 gm/dl (3.4-5.0); BUN Creatinine Ratio 34.9 (10-20); Bilirubin Direct 1.1 mg/dl (0-0.2); Calcium 8.4 mg/dl (8.5-10.1); Est GFR (Non-African American) 33.7; Potassium 4.1 mmol/L (3.5-5.1)
[2019-08-26] MEDS: INSULIN ASPART 100 UNITS/ML 3 ML PEN SC SCH (07:53)
[2019-08-26 07:55] LABS: Bilirubin,Total 2.1 mg/dl (0.2-1); Total Protein 6.3 gm/dl (6.4-8.2)
[2019-08-26] MEDS: FOLIC ACID 400 MCG TAB PO SCH (07:55)
[2019-08-26] MEDS: AMIODARONE 200 MG TAB PO SCH (07:55)
[2019-08-26] MEDS: THIAMINE HCL 100 MG TAB PO SCH (07:56)
[2019-08-26] MEDS: allopurinoL 100 MG TAB PO SCH (07:57)
[2019-08-26] MEDS: POLYETHYLENE (MIRALAX) 17 GM PACK PO SCH (07:57)
[2019-08-26] MEDS: POTASSIUM CHLORIDE 10 MEQ TABCR PO SCH (07:57)
[2019-08-26] MEDS: ASPIRIN 81 MG ECTAB PO SCH (07:58)
[2019-08-26] MEDS: METOPROLOL SUCC 25MG EXT REL TAB PO SCH (07:59)
[2019-08-26] MEDS: PANTOprazole 40 MG TAB PO SCH (07:59)
[2019-08-26] MEDS: INSULIN GLARGINE SOLOSTAR 100 UNITS/ML 3 ML PEN SC SCH (08:00)
[2019-08-26] MEDS: allopurinoL 300 MG TAB PO SCH (08:02)
[2019-08-26] MEDS: ONDANSETRON 4 MG OD TAB PO SCH (08:35)
[2019-08-26] MEDS ORDERED: MoRPHine SULFATE 2 MG/ML CARP IV ONE (08:57)
[2019-08-26] MEDS ORDERED: EPINEPHrine (STAT use only) 2 MG in D5W 250 ML IV STA (11:15)
[2019-08-26 11:37] LABS: iSTAT Allen Test Pass; iSTAT Art Bld Gas pCO2 Correct 103 mmHg (35-46); iSTAT Art Bld Gas pH Corrected 7.049 (7.35-7.45); iSTAT Arterial Blood Gas HCO3 29 meg/L (19-24); iSTAT Arterial Blood Gas pCO2 103 mmHg (35-46); iSTAT Arterial Blood Gas pH 7.05 (7.35-7.45); iSTAT Arterial Blood Gas pO2 58 mmHg (80-95); iSTAT Arterial Blood Gas pO2 C 58; iSTAT Carbon Dioxide 32 mmol/L (24-31); iSTAT Hematocrit 27 % (42-52); iSTAT Hemoglobin 9.2 g/dl (14.0-18.0); iSTAT Potassium 4.5 mmol/L (3.3-5.0); iSTAT Site L Radial; iSTAT Sodium 133 mmol/L (135-144)
--- NOTE | 2019-08-26 11:54 | Procedure Note ---
Procedure Note Date of Service August 26, 2019 Note INTUBATION PROCEDURE NOTE: Dr. Blayne Frost No timeout or consent was obtained as the patient was emergently intubated during ongoing cardiac arrest. Patient was evaluated and required intubation for cardiac arrest. Sedative agent used: None Paralysis agent used: None Emergent consent was implied given patients rapidly declining clinical status and need for airway protection. Number of attempts: 1 Video laryngoscope was used (glide scope). Size 4 blade. No sedation was utilized. The patient was supine. A 8 Georgian endotracheal tube was placed under video laryngoscope guidance to 23 cm at the lip. The stylette was removed and balloon was inflated with 10mL of air. Appropriate Colorimetric change was appreciated. Bilateral breath sounds were heard without air sounds in the abdomen. Fortunately, CPR was not interrupted for the intubation. Coding CPT Codes Resuscitation - Resuscitation: 52361 Endotracheal Intubation, emergency ([id number]) [facility] Procedure Codes (Charges) Resuscitation Resuscitation: 50409 Endotracheal Intubation, emergency
--- NOTE | 2019-08-26 12:00 | Procedure Note ---
Procedure Note Date of Service August 26, 2019 Note Lila CABELLO was called to room 241 bed to. I was present along with a number of ancillary staff. CPR was immediately initiated. The patient received 1 mg of epinephrine and defibrillation pads were placed on the patient. The initial rh ythm was deemed to be asystole. We continued CPR and subsequent rhythms appear to be pulseless electrical activity. After numerous doses of epinephrine, approximately 15 minutes into the code the patient did have return of spontaneous circulation and a thready pulse was detected with a Doppler ultrasound. I was able to place an echo probe on the patient's chest and noted dyskinetic LV function. There was no obvious evidence of tamponade. He had a small right pleural effusion. There is no obvious fluid in the hepatic renal recess or in the splenic renal recess. The IVC looks very dilated and did not have much respiratory variation. Several minutes into ROSC, the patient lost pulses once more and we reinitiated ACLS and the patient received several more doses of epinephrine. Approximately 25 minutes into the ACLS procedure, we aborted further CPR and the patient was pronounced . Family was informed and were updated by the hospitalist. They appeared quite distraught. Upon review of the chart, it does appear that this patient has underlying severe illnesses including coronary ischemia and an ejection fraction of 35%, CKD stage IV, recent ERCP procedure for biliary sepsis, acute on chronic CHF (undergoing diuresis with Lasix) and is currently anticoagulated with warfarin. It also appeared that he had a pericardial effusion on his most recent CT abdomen, although I did not appreciate a very large effusion on the surface echo performed by myself. Of note, given the patient's ongoing diuresis we did give him 1 g of magnesium and 1 g of calcium chloride for the possibility of this being related to an arrhythmia from abnormal electrolytes. We did obtain a blood gas as uploaded into the electronic medical record. This represented a mixed severe primary respiratory acidosis with a metabolic alkalosis. Approximately 35 minutes of care was given. CRITICAL CARE TIME - I have personally spent 35 minutes of critical care time in the direct management of this patient. This is a life/limb threatening event. This includes time spent evaluating patient, direct bedside care, chart review, placing orders, interpretation of diagnostic studies, discussion with consultants, patient, and family members, as well as other required patient management activities. This time is exclusive of all separately billable procedures, and teaching time and separate from and in addition to any other critical care service time. Coding CPT Codes Resuscitation - Resuscitation: 45119 Heart/lung resuscitation CPR ([id number]) [facility] [place] C[place] (Charges) Resuscitation Resuscitation: 82013 Heart/lung resuscitation CPR
--- NOTE | 2019-08-26 14:14 | Discharge Summary ---
Date of Service August 26, 2019 Admission HPI Per Admitting Provider History obtained from patient and records. Medical history significant for chronic systolic heart failure secondary to ischemic cardiomyopathy (EF 35%, TTE 2019 ), hx CAD as per records, history of AFib currently off Coumadin due to anemia, HTN, hyperlipidemia, DM2, insulin requiring, ANTOINETTE on CPAP, anxiety/mood disorder, CRI (baseline creatinine 1.5), chronic anemia (baseline hemoglobin of 7-8), history colonic po lyps, diverticulosis, internal hemorrhoids. Recent confinement from August 04-2023 symptomatic anemia, supratherapeutic INR. 2 units PRBC transfused during confinement. Hemoglobin 7. 8 on discharge. Coagulopathy reversed with vitamin K and fresh frozen plasma. Coumadin held on discharge in anticipation of outpatient EGD/colonoscopy to be scheduled in 1 to 2 weeks as per outpatient notes. Yesterday patient was sitting on the porch with his when he noted transient chest discomfort, sweatiness and shortness of breath. No unusual fluid retention as per patient. No cough, no fever now no chills. Patient somewhat sleepy and tired. Denies abdominal pain, black/ bloody stools. Appetite okay at home. No change in insulin regimen. Denies dietary indiscretion. Compliant with home meds. At the ER, patient given Lasix for CHF. Dextrose ampule administered at the ER BSG noted to be 40s. No other recent hypoglycemic episodes as per patient. Medical History as above Colonoscopy 2019 showed prior end-to-side ileocolonic anastomosis in the proximal transverse colon noted to be patent. Sigmoid and rectal polyps. Sigmoid diverticulosis. Internal hemorrhoids. 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 Admission Exam Per Admitting Provider Physical Exam Physical Exam: GENERAL: Episodic lethargy, obese, no respiratory distress SKIN: Pallor , warm HEENT: Pale palpebral conjunctivae, no ptosis, dry buccal mucosa NECK : Supple, short neck, no tenderness CHEST : Decreased breath sounds , no tenderness HEART : Irregular, no obvious murmurs ABDOMEN: Some distention, nontender RECTAL : Intact sphincter, brown stool (FOBT positive ) EXTREMITIES : Minimal LE swelling, no LE tenderness, no other conspicuous deformities noted NEUROLOGIC : Episodic lethargy, no facial asymmetry, no other gross focality Principal Diagnosis Acute systolic and diastolic CHF exacerbation Metabolic Encephalopathy Pericardial Effusion Choledocholithiasis Transaminitis Symptomatic anemia Urinary Retention Acute Kidney Injury on CKD III Coronary Artery disease Atrial Fibrillation Discharge Data Allergies Allergy/AdvReac Type Severity Reaction Status Date / Time Penicillins Allergy Mild childhood Verified 08/10/19 23:04 reaction codeine AdvReac Mild NAUSEA, Verified 08/10/19 23:04 LIGHTHEADEDNESS simvastatin AdvReac Mild makes him Verified 08/10/19 23:04 feel like he is high Consultations 08/10/19 23:15 ED Decision to Admit Stat 08/11/19 02:16 Consult Cardiology Routine Consult Gastroenterology Routine 08/11/19 16:19 Consult Neurology Routine 08/19/19 12:21 Consult General Surgery Routine 08/23/19 17:20 Consult Neurology Routine 08/25/19 09:31 Consult Nephrology Routine Procedures Performed Operation Date: 08/14/19 16:00 <No data on this case meets the specified criteria> Operation Date: 08/20/19 10:30 Actual Procedures p Endoscopic Ultrasonography(Not Applicable) - Angela Duncan MD s Endoscopic Retrograde Cholangiopancreatography with Sphincterotomy and Biliary and Pancreatic Stent Placement(Not Applicable) - Angela Duncan MD s Esophagogastroduodenoscopy(Not Applicable) - Angela Duncan MD CT ABD: 1. Cardiomegaly with a moderate pericardial effusion which is similar to the prior study. 2. Increase in size in a small bilateral pleural effusions. Bilateral lower lobe consolidation is nonspecific but favors atelectasis. A pneumonia could also have a similar appearance. 3. Cholelithiasis. No definite gallbladder wall thickening. 4. No hydronephrosis. 5. Small amount of gas within the bladder which may be due to recent catheterization versus cystitis. 6. No definite bowel wall thickening or obstruction. Chest CTA: 1. No evidence of pulmonary embolus. 2. Cardiomegaly with findings of a pericardial effusion. Maximum thickness of 1.1 cm. 3. Bilateral pleural effusions with mild consolidative change left lower lobe. Head CT: No acute intracranial findings. No significant change in appearance of the brain. Carotid Doppler: 50-69% stenosis of the origin/proximal left internal carotid artery. Ordered Studies 08/11/19 16:19 CT head/brain wo con Urgent 08/12/19 10:05 US carotid doppler BI Routine 08/13/19 15:00 CT angio chest PE protocol Urgent 08/18/19 21:37 CT abd pelvis wo con Urgent 08/19/19 09:30 US abdomen limited Stat 08/20/19 14:00 FL ERCP biliary ductal Routine 08/20/19 17:55 US upper EUS PACS images Routine 08/23/19 08:00 US renal/blad retro comp Routine 08/23/19 11:55 CT head/brain wo con Stat Hospital Course (1) Gallstones with biliary obstruction: Choledocholithiasis Transaminitis S/P ERCP with sphincterotomy and biliary/pancreatic stent placement on 08/20/19 LFTs trending down Continue low fat diet as tolerated Need to complete 7-day course of antibiotics. KUB:No acute process. Nonobstructive bowel pattern. Biliary and pancreatic ductal stents. Antiemetics PRN Appreciate GI Input Changed Abx to Ceftriaxone, flagyl given persistence of nausea Continue bowel regimen (2) SOB (shortness of breath): Acute systolic and diastolic CHF exacerbation CXR:Interval development of mild congestive change. Cardiomegaly and small bilateral pleural effusions persist. H/O ischemic cardiomyopathy with EF of 35% in 2019 S/P AICD-ICD Interrogation completed CTA on 08/13/19: No evidence of pulmonary embolus. Cardiomegaly with findings of a pericardial effusion. Maximum thickness of 1.1 cm. Bilateral pleural effusions with mild consolidative change left lower lobe. Entresto held currently Appreciate Cardiology/Nephrology Input Continue supplemental oxygen as needed Hold Bumex Continue fluid restriction Monitor I/Os Continue lasix drip Monitor volume status Metabolic Encephalopathy UTI ruled out Urine Cx:Negative Blood Cx:No growth to date Cipro discontinued Normal Ammonia levels CT head: no acute change Appreciate Neurology Input Reorient frequently to minimize delirium Pericardial Effusion Incidental finding on CT--as above Nothing to suggest tamponade Symptomatic anemia Positive fecal occult in the emergency room Hemoglobin dropped from prior admission despite being off Coumadin Received 2 units of blood transfusion BUN mildly elevated, total bilirubin within normal limits Resumed Aspirin, Coumadin Appreciate GI input Monitor CBC Urinary Retention Continue pickering for now Voiding trail as able Bladder scan PRN Microscopic Hematuria No gross hematuria noted Repeat UA: No hematuria Resolved Stroke like Symptoms/Vertigo DD: Hypoglycemia, ICD problems, complex migraine CT head:No acute intracranial findings. No significant change in appearance of the brain. Carotid Doppler: 50-69% stenosis of the origin/proximal left internal carotid artery. Neurology Consulted -no further recommendation as symptoms are not due to Doppler findings in neck Continue aspirin, Coumadin Repeat CT showed no acute process Could not get CTA head or neck secondary to renal insufficiency Could not get MRI brain due to ICD Neurology input appreciated. Fall precautions Keep BP on higher side INR in therapeutic range Acute Kidney Injury on CKD III Baseline Cr:1.4-1.7 Due to diuretics/Urinary retention Entresto held Monitor renal function Cr: 2.75>>2.59>>2.16>>1.97 Repeat renal ultrasound did not show any hydronephrosis. Nephrology consulted CAD Continue Aspirin, Lipitor, metoprolol Entresto held due to BRENT H/O atrial fibrillation Rate controlled Currently off anticoagulation Continue amiodarone, metoprolol, digoxin Continue coumadin Monitor INR:2.6>> 4.2 Hyperlipidemia on statin DM II Hypoglycemic prior to admission Hb A1C:6.22 Jul 2019 Continue insulin therapy Glycemic pharmacy consult. Hypokalemia Likely due to diuretics/poor oral intake Replete electrolytes as needed ANTOINETTE on CPAP DVT Px: Coumadin Code Status Full code Disposition Expect to discharge home when medically stable Patient suddenly got agitated and started to become aggressive as per RN. He suddenly became unresponsive. Code was called and CPR was initiated immediately. ICU team ran the code and patient was intubated at bedside. Patient despite ACLS protocol. Family was updated. As per : A NOEMI CABELLO was called to room 241 bed to. I was present along with a number of ancillary staff. CPR was immediately initiated. The patient received 1 mg of epinephrine and defibrillation pads were placed on the patient. The initial rhythm was deemed to be asystole. We continued CPR and subsequent rhythms appear to be pulseless electrical activity. After numerous doses of epinephrine, approximately 15 minutes into the code the patient did have return of spontaneous circulation and a thready pulse was detected with a Doppler ultrasound. I was able to place an echo probe on the patient's chest and noted dyskinetic LV function. There was no obvious evidence of tamponade. He had a small right pleural effusion. There is no obvious fluid in the hepatic renal recess or in the splenic renal recess. The IVC looks very dilated and did not have much respiratory variation. Several minutes into ROSC, the patient lost pulses once more and we reinitiated ACLS and the patient received several more doses of epinephrine. Approximately 25 minutes into the ACLS procedure, we aborted further CPR and the patient was pronounced . Family was informed and were updated by the hospitalist. They appeared quite distraught. Upon review of the chart, it does appear that this patient has underlying severe illnesses including coronary ischemia and an ejection fraction of 35%, CKD stage IV, recent ERCP procedure for biliary sepsis, acute on chronic CHF (undergoing diuresis with Lasix) and is currently anticoagulated with warfarin. It also appeared that he had a pericardial effusion on his most recent CT abdomen, although I did not appreciate a very large effusion on the surface echo performed by myself. Of note, given the patient's ongoing diuresis we did give him 1 g of magnesium and 1 g of calcium chloride for the possibility of this being related to an arrhythmia from abnormal electrolytes. We did obtain a blood gas as uploaded into the electronic medical record. This represented a mixed severe primary respiratory acidosis with a metabolic alkalosis. (3) Metabolic encephalopathy: Total Time Total Time Spent Total Time Spent (In Minutes): 45 minutes Discharge Plan Discharge Items Patient Disposition: Reason For Visit: CHF Discharge Diagnosis: Acute systolic and diastolic CHF exacerbation Metabolic Encephalopathy Pericardial Effusion Choledocholithiasis Transaminitis Symptomatic anemia Urinary Retention Acute Kidney Injury on CKD III Coronary Artery disease Atrial Fibrillation Follow-up/Referrals: Delmer Gracia MD [Primary Care Provider] - Addtl Attending Provider Instructions: Family was updated. Stand-Alone Forms: [facility] Admission Data Admit Date/Time: 08/11/19 00:17 Other DC Date/Time DO NOT enter until pt leaves facility: 08/26/19 14:40
[2019-08-26] MEDS ORDERED: MAG SULFATE 50% 1GM/2ML VIAL IV ONE (14:39)
[2019-08-26] MEDS ORDERED: CALCIUM CHLORIDE 10% 10 ML SYR IV ONE (14:39)
[2019-08-26] MEDS ORDERED: SODIUM BICARB 8.4% INJ 50 MEQ/50 ML SYR IV ONE (14:39)
== END 2019-08-26 14:40 | disposition expired | DRG 811 ==
LOC: ED 21:43 → 2S 08-11 00:17 → SUATTDRO 08-11 00:17 → 2S 08-11 01:45